=== PATIENT | female | born 1950 | race Caucasian/White ===

== ENCOUNTER 2024-03-26 19:50 | Inpatient (IN) | payer MEDICAID, SELFPAY ==
[2024-03-26] VITALS (16 sets, daily range): BP systolic 144–153; BP diastolic 73–81; PULSE 79–94; RESP 16–18; TEMP 37.6; O2SAT 91–97; BMI 21.5
--- NOTE | 2024-03-26 20:13 | ED.GENADULT ---
HPI - General Adult General Chief complaint: Post Op Complication Stated complaint: post op, left leg is swelling, can't walk Time Seen by Provider: 03/26/24 20:05 History of Present Illness HPI narrative: pt had spinal fusion february 09 at [facility]. states last 3d increased swelling in L leg, increased pain in groin with some numbness, L leg appears swollen, red and warmer to touch. tylenol and oxy for pain. 73-year-old woman presenting to the emergency department approximately 6 weeks status post lumbar fusion. She has been experiencing increased swelling in the entire left leg particularly now into her foot as well. She is having by inguinal discomfort. She has not had any fever. No cough or cold symptoms or shortness of breath. No chest pain noted. She does take oxycodone and acetaminophen once or twice a day yet for pain. There has been no recent trauma. She continues to wear her back brace. Was seen a week ago at [facility] with negative left lower extremity ultrasound. She is not reporting similar radicular pain to preop but there is some numbness now in the leg as well. Can not walk very well due to the pain. Related Data Home Medications ?Medication ?Instructions ?Recorded ?Confirmed No Known Home Medications 03/26/24 03/26/24 Allergies Allergy/AdvReac Type Severity Reaction Status Date / Time No Known Drug Allergies Allergy Verified 03/26/24 20:12 Review of Systems Status of ROS: Reports: 6 or more systems reviewed and unremarkable except as noted in History and below PFSH PFSH Social History What is your current living situation?: I presently have a place to live Problems where you live: no known problems Problems where you live details: n/a In the past 12 months, utilities in danger of being shut off: unable to answer In past 12 months, lack of transportation kept you from medical appts, meetings, work, or getting things needed for daily living: no In the past 12 mos, have been you worried that your food would run out before you had money to buy more?: never true In the past 12 mos, the food you bought just didn't last and you didn't have money to buy more?: never true Smoking Status: Never smoker How often do you have a drink containing alcohol: never AUDIT-C Alcohol total score: 0 Non-prescribed substance use: denies use How often does anyone, including family, friends and others, physically hurt you: unable to answer How often does anyone, including family, friends and others, insult or talk down to you: unable to answer How often does anyone, including family, friends and others, threaten you with harm: unable to answer How often does anyone, including family, friends and others, scream or curse at you: unable to answer Exam Narrative: Exam Narrative: Pleasant. NAD. Fully alert. Lying in bed semi recumbent. Breathing easily. Lungs appear to be clear. Heart in elevated rate and regular rhythm. Abdomen is soft nontender though I did not remove the thoracic brace to assess. Evaluating surgical sites I do not see any inflammatory changes/redness in the low back. Most notable is the left lower extremity with some petechial eruptions in the lower leg/foot. Is diffusely moderately tense and with pitting edema. I do not appreciate any discrete swelling in the inguinal areas. The skin of the leg itself is not indurated or with significant calor suggest an infectious etiology. Const: Vital Signs, click to edit/add: Vital Signs - 24 hr 03/26/24 20:06 03/26/24 20:45 03/26/24 21:00 Temperature 99.6 F Pulse Rate 93 85 Pulse Rate [Pulse Oximeter] 94 Respiratory Rate 18 Respiratory Rate [ Left Groin] Blood Pressure Blood Pressure [Ri ght Upper Arm] 153/81 H Pulse Oximetry 96 95 97 Oxygen Delivery Me thod Room Air 03/26/24 21:15 03/26/24 21:31 03/26/24 21:45 Temperature Pulse Rate 89 87 83 Pulse Rate [Pulse Oximeter] Respiratory Rate 16 Respiratory Rate [ Left Groin] Blood Pressure Blood Pressure [Ri ght Upper Arm] Pulse Oximetry 95 97 97 Oxygen Delivery Me thod 03/26/24 22:00 03/26/24 22:00 03/26/24 22:15 Temperature Pulse Rate 86 88 Pulse Rate [Pulse Oximeter] Respiratory Rate Respiratory Rate [ Left Groin] 16 Blood Pressure Blood Pressure [Ri ght Upper Arm] Pulse Oximetry 96 94 Oxygen Delivery Me thod 03/26/24 22:30 03/26/24 22:31 03/26/24 22:32 Temperature Pulse Rate 79 85 84 Pulse Rate [Pulse Oximeter] Respiratory Rate 16 Respiratory Rate [ Left Groin] Blood Pressure 144/73 H Blood Pressure [Ri ght Upper Arm] Pulse Oximetry 97 96 97 Oxygen Delivery Me thod 03/26/24 22:45 03/26/24 23:00 03/26/24 23:15 Temperature Pulse Rate 87 90 90 Pulse Rate [Pulse Oximeter] Respiratory Rate Respiratory Rate [ Left Groin] Blood Pressure Blood Pressure [Ri ght Upper Arm] Pulse Oximetry 93 94 91 Oxygen Delivery Me thod 03/26/24 23:30 03/26/24 23:45 03/27/24 00:00 Temperature Pulse Rate 90 92 90 Pulse Rate [Pulse Oximeter] Respiratory Rate Respiratory Rate [ Left Groin] Blood Pressure Blood Pressure [Ri ght Upper Arm] Pulse Oximetry 94 92 91 Oxygen Delivery Me thod 03/27/24 00:15 03/27/24 00:30 03/27/24 00:45 Temperature Pulse Rate 90 101 H 104 H Pulse Rate [Pulse Oximeter] Respiratory Rate Respiratory Rate [ Left Groin] Blood Pressure Blood Pressure [Ri ght Upper Arm] Pulse Oximetry 90 95 95 Oxygen Delivery Me thod 03/27/24 00:57 03/27/24 01:00 03/27/24 01:01 Temperature Pulse Rate 83 86 84 Pulse Rate [Pulse Oximeter] Respiratory Rate 16 Respiratory Rate [ Left Groin] Blood Pressure 123/59 L 139/56 L Blood Pressure [Ri ght Upper Arm] Pulse Oximetry 95 95 94 Oxygen Delivery Me thod 03/27/24 01:25 03/27/24 01:35 Temperature Pulse Rate Pulse Rate [Pulse Oximeter] Respiratory Rate 20 Respiratory Rate [ Left Groin] Blood Pressure Blood Pressure [Ri ght Upper Arm] Pulse Oximetry 98 93 Oxygen Delivery Me thod Room Air Documenting provider has reviewed patient's vital signs: yes Course Vital Signs Vital signs: Initial Vital Signs Temperature 99.6 F 03/26/24 20:06 Temperature Source Temporal Artery Scan 03/26/24 20:06 Pulse Rate 94 03/26/24 20:06 Respiratory Rate 18 03/26/24 20:06 Blood Pressure 153/81 H 03/26/24 20:06 Blood Pressure Mean 105 03/26/24 20:06 Blood Pressure Position Sitting 03/26/24 20:06 Pulse Oximetry 96 03/26/24 20:06 Oxygen Delivery Method Room Air 03/26/24 20:06 Vital Signs Temperature 99.6 F 03/26/24 20:06 Pulse Rate 94 03/26/24 20:06 Respiratory Rate 18 03/26/24 20:06 Blood Pressure 153/81 H 03/26/24 20:06 Pulse Oximetry 96 03/26/24 20:06 Oxygen Delivery Method Room Air 03/26/24 20:06 Temperature 99.6 F 03/26/24 20:06 Pulse Rate 84 03/27/24 01:01 Respiratory Rate 20 03/27/24 01:35 Blood Pressure 139/56 L 03/27/24 01:01 Pulse Oximetry 93 03/27/24 01:35 Oxygen Delivery Method Room Air 03/27/24 01:35 Medications Administered Medications: Generic Name Dose Route Start Last Admin Trade Name Freq PRN Reason Stop Dose Admin Heparin Sodium/Dextrose 25,000 unit in 500 mls @ 0 mls/hr 03/26/24 23:45 03/27/24 00:40 Heparin IV 900 unit/hr .Q0M ERNIE 18 mls/hr Administration Protocol Per Protocol Tramadol HCl 50 - 100 mg 03/27/24 02:24 03/27/24 06:37 Tramadol Hcl 50 Mg Tablet PO 100 mg Q6H PRN Administration Discontinued Medications Generic Name Dose Route Start Last Admin Trade Name Freq PRN Reason Stop Dose Admin Heparin Sodium (Porcine) 3,900 unit 03/26/24 23:58 03/27/24 00:40 Heparin 5,000 Unit/0.5 Ml Inj 80 unit/kg (3900 unit) 03/26/24 23:59 3,900 unit IVP Administration ONCE ONE Sodium Chloride 500 mls @ 500 mls/hr 03/26/24 20:26 03/27/24 00:42 0.9 % Sodium Chloride 500 Ml IV 03/26/24 21:25 Infused .Q1H ONE Infusion Morphine Sulfate 4 mg 03/26/24 20:26 03/26/24 21:00 Morphine 4 Mg/Ml Inj IVP 03/26/24 20:27 4 mg ONCE ONE Administration Medical Decision Making MDM Narrative Medical decision making narrative: Concerning a changes for thromboembolic event also. Perhaps this was just beyond the limits of the lower extremity ultrasound was done last week. May need to image lower abdomen/pelvis as well. I do not think this is infectious but will check labs in that regard. Check coags and hemoglobin. Was present for ultrasound of left lower extremity. Confirmed with senior cytotechnologist that has extensive clot burden throughout the left leg and inguinal area extending from the common femoral to the peroneals. Unable to visualize the iliacs due to obscuring gas I wonder if might need thrombectomy as opposed to lytics in the setting of recent spinal surgery. There is not imminent compromise to her limb however I am impressed at the degree of involvement. Have paged to neurosurgery at [facility] to discuss. Neurosurgery approves any treatment but lytics at this point. Have been attempting to reach vascular to discuss next steps. Spoke to [facility] ED doc pending vascular availability. Over-read of ultrasound as below Study:?US-Extremity Left LEV LT-03/26/2024 9:39:49 PM Ordering Physician:Sumanth Weems Final Report: Indication: Left leg swelling, redness and pain Technique: Venous duplex ultrasound of the left lower extremity utilizing compression with grayscale and color and spectral Doppler. Comparison: None Findings: Occlusive deep vein thrombosis in the left common femoral, deep femoral, superficial femoral and both peroneal veins. There is no deep vein thrombosis in the left popliteal or posterior tibial veins. No deep vein thrombosis in the contralateral right common femoral vein. No visualized superficial vein thrombosis. Minimal subcutaneous edema. Impression: Acute, occlusive deep vein thrombosis in the left common, deep, and superficial femoral veins and both peroneal veins. Able to reach general surgery and then I understand vascular surgery resident. Noted to be conversation with staff about this case. Recommending heparinization and hospitalization and then transitioning to other anticoagulation perhaps NOAC. I think it would also be beneficial to have further imaging try to characterize extent of this DVT. I discussed this case with our hospitalist for admission but I am also ordering CT imaging of the abdomen and pelvis. CT abdomen and pelvis acquired with 53 cc of Isovue 370 IV contrast. COMPARISON: None. FINDINGS: Lower chest: Unremarkable. Liver: Unremarkable. Normal in size and attenuation. No suspicious masses. Gallbladder and bile ducts: Unremarkable. No stones or inflammation. No biliary dilatation. Pancreas: Unremarkable. No mass or inflammation. Spleen: Unremarkable. Normal in size. No masses. Adrenal glands: Unremarkable. No nodules. Kidneys: Simple cyst with punctate mural calcification within the right kidney. No hydronephrosis, stone, or suspicious mass. GI tract: Diverticulosis without pericolonic inflammation. No obstruction. No evidence for appendicitis. Vasculature: Evaluation is somewhat limited due to streak artifact from the patient`s spinal fusion hardware. There is enlargement and decreased enhancement of the left superficial, common femoral, external iliac and distal common iliac veins. There does not appear to be thrombus within the IVC. Ectatic and mildly atherosclerotic thoracic aorta with patent mesenteric arteries. Lymph nodes: No lymphadenopathy. Peritoneum/Abdominal Wall: Enlargement of the proximal left thigh with surrounding inflammatory stranding/edema. No free air or significant free fluid. Pelvis: Unremarkable. Bones: Extensive lower thoracic, lumbar, and upper sacral posterior fusion changes. No acute bony abnormality. IMPRESSION: 1. Extensive left-sided deep venous thrombosis extending from the left superficial femoral vein to the left common iliac vein. Associated enlargement and edema of the left proximal thigh. No thrombus visualized within the IVC. 2. No other acute findings within the abdomen and pelvis. Medical Records Medical records reviewed: Yes I reviewed the patient's medical records Lab Data Lab results reviewed: Yes I reviewed the patient's lab results Labs: Lab Results 03/26/24 03/27/24 Range/Units 20:40 06:04 WBC 8.20 7.03 (4.50-11.00) K/uL RBC 3.90 L 3.53 L (4.00-5.20) m/uL Hgb 11.2 L 10.4 L (12.0-16.0) gm/dL Hct 35.9 32.1 L (33.0-51.0) % MCV 92 91 (80-100) fL MCH 29 30 (26-34) pg MCHC 31 L 32 (32-36) gm/dL RDW Coeff of Shalini 14.7 14.7 (11.5-15.5) % Plt Count 242 247 (140-440) K/uL Neut % (Auto) 67.9 55.5 (42.0-72.0) % Lymph % (Auto) 24.1 35.3 (20-44) % Douglas % (Auto) 6.6 7.0 (0.0-11.0) % Eos % (Auto) 1.2 1.8 (0.0-7.0) % Baso % (Auto) 0.2 0.4 (0.0-3.0) % Neut # (Auto) 5.56 3.90 (1.7-7.0) K/uL Lymph # (Auto) 1.98 2.48 (0.90-2.90) K/uL Douglas # (Auto) 0.50 0.50 (0.00-0.90) K/UL Eos # (Auto) 0.10 0.13 (0.00-0.50) K/uL Baso # (Auto) 0.02 0.03 (0.00-0.30) K/uL Abs Immat Gran (auto) 0.00 0.00 (0.00-0.30) K/uL Imm/Tot Granulo (auto) 0.0 0.0 % INR 0.92 (0.91-1.10) APTT 33 (23-33) Seconds D-Dimer Quant (PE/DVT) > 20.00 H (0.00-0.50) ug/ml Sodium 133 L 136 (135-149) mmol/L Potassium 4.3 3.9 (3.6-5.1) mmol/L Chloride 100 103 (96-114) mmol/L Carbon Dioxide 26 27 (20-32) mmol/L Anion Gap 7 6 L (7-15) mEq/L BUN 17 12 (7-30) mg/dL Creatinine 0.4 L 0.4 L (0.5-1.5) mg/dL Estimated Creat Clear 38.76 40.43 Estimated GFR 104 104 ml/min Glucose 127 H 103 (60-115) mg/dL Calcium 9.4 9.4 (8.4-10.6) mg/dL C-Reactive Protein 3.2 H (0.5-1.0) mg/dL Discharge Plan Discharge Clinical Impression: Postoperative acute deep vein thrombosis (DVT) of lower extremity Patient Disposition: Admitted As Observation Condition: Stable
--- NOTE | 2024-03-26 20:27 | CRLHL7_ITS ---
For Patients: As a result of the Century Cures Act, medical imaging exams and procedure reports are released immediately into your electronic medical record. You may view this report before your referring provider. If you have questions, please contact your health care provider. Indication: Left leg swelling, redness and pain Technique: Venous duplex ultrasound of the left lower extremity utilizing compression with grayscale and color and spectral Doppler. Comparison: None Findings: Occlusive deep vein thrombosis in the left common femoral, deep femoral, superficial femoral and both peroneal veins. There is no deep vein thrombosis in the left popliteal or posterior tibial veins. No deep vein thrombosis in the contralateral right common femoral vein. No visualized superficial vein thrombosis. Minimal subcutaneous edema. Impression: Acute, occlusive deep vein thrombosis in the left common, deep, and superficial femoral veins and both peroneal veins. Dictated by Marc Bazzi MD @ 03/26/2024 10:19:36 PM (Electronically Signed)
[2024-03-26 20:51] LABS: Basophils Absolute Auto 0.02 K/uL (0.00-0.30); Basophils Percent Auto 0.2 % (0.0-3.0); Eosinophils Percent Auto 1.2 % (0.0-7.0); Hematocrit 35.9 % (33.0-51.0); Hemoglobin* 11.2 gm/dL (12.0-16.0); Lymphocytes Absolute Auto 1.98 K/uL (0.90-2.90); Lymphocytes Percent Auto 24.1 % (20-44); Mean Corpuscular HGB Conc 31 gm/dL (32-36); Mean Corpuscular Hemoglobin 29 pg (26-34); Mean Corpuscular Volume 92 fL (80-100); Monocytes Percent Auto 6.6 % (0.0-11.0); Neutrophils Absolute Auto 5.56 K/uL (1.7-7.0); Neutrophils Percent Auto 67.9 % (42.0-72.0); Platelet Count* 242 K/uL (140-440); RDW Coefficient of Variation % 14.7 % (11.5-15.5)
[2024-03-26 20:55] LABS: Slide Review Reflex No
--- OUTSIDE RECORDS SUMMARY | 2024-03-26 20:59 | XMS_ITS | Encounter Summary ---
Author Organization [facility] Address [address] [place] [address] Phone Care Team Providers Care Machine Stripper Cutter Name Role Phone Marcela Vera MD Primary Care Provider [phone] Nolberto Campos PT Unavailable [phone] Nikki Delong PT Unavailable [phone] Reason for Visit * Reason Onset Date Comments Leg Problem 03/26/2024 Encounter Details Date Type Department Care Team (Late st Contact Info) Description 03/26/2024 Nurse Triage [facility] [address] [place] [address] Sarita Canales, RN [address] [place] [address] Leg Problem Social History Tobacco Use Types Packs/Day Years Used Date Smoking Tobacco: Never Smokeless Tobacco: Never Alcohol Use Standard Drinks/Week Comments Never 0 (1 standard drink = 0.6 oz pur e alcohol) Humiliation, Afraid, Rape, and Kick questionnair e Answer Date Recorded Within the last year, have y ou been afraid of your partner or ex-partner? No 02/17/2024 Within the last year, have y ou been humiliated or emotionally abused in other ways by your partner or ex-partner? No Within the last year, have y ou been kicked, hit, slapped, or otherwise physically hurt by your partner or ex-partner? No 02/17/2024 Within the last year, have y ou been raped or forced to have any kind of sexual activity by your partner or ex-partner? No 02/17/2024 Overall Financial Resource Strain (CARDIA) Answe r Date Recorded How hard is it for you to pa y for the very basics like food, housing, medical care, and heating? Not very hard 02/17/2024 PHQ-2 Answer Date Recorded PHQ-2 Subtotal 1 11/02/2023 Hunger Vital Sign Answer Date Recorded Within the past 12 months, y ou worried that your food would run out before you got the money to buy more. Never true 02/17/20 24 Within the past 12 months, t he food you bought just didn't last and you didn't have money to get more. Never true 02/17/2024 PRAPARE - Transportation Answer Date Re corded In the past 12 months, has l ack of transportation kept you from medical appointments or from getting medications? Yes 02/02 In the past 12 months, has l ack of transportation kept you from meetings, work, or from getting things needed for daily living? Yes 02/17/2024 Housing Stability Answer Date Recorded What is your housing situati on today? 1 - I do not have housing (I am staying with others, in a hotel, in a fpc, living outside on the street, on a beach, in a car, abandoned building, bus or train station, or in a park) 02/17/2024 Sex and Gender Information Value Date Recorded Sex Assigned at Female 11/05/2021 8:07 PM KILN CHARGER Gender Identity Female 11/05/2021 8:07 PM KILN CHARGER Sexual Orientation Straight 11/05/2021 8: 07 PM KILN CHARGER documented as of this encounter Miscellaneous Notes * Telephone Encounter - Sarita Canales RN - 03/26/2024 2:02 PM CDT D: Daughter Kaela trinidad, she is with the patient. States 2 days ago her left leg started swelling up again. It is now swollen from the foot to the hip. No redness, afebrile, denies chest pain or shortness of breath. The foot is darker than the right A: instructed to bring her to the closest ED R: The patient indicates understanding of these issues and agrees to the plan. P: Her daughter will bring her to the ED Call done with molding machine operator helper [id number] Reason for Disposition Entire foot is cool or blue in comparison to other side Answer Assessment - Initial Assessment Questions 1. ONSET: When did the swelling start? (e.g., minutes, hours, days) 2. LOCATION: What part of the leg is swollen? Are both legs swollen or just one leg? Left leg only 3. SEVERITY: How bad is the swelling? (e.g., localized; mild, moderate, severe) - Localized: Small area of swelling localized to one leg. - MILD pedal edema: Swelling limited to foot and ankle, pitting edema < 1/4 inch (6 mm) deep, rest and elevation eliminate most or all swelling. - MODERATE edema: Swelling of lower leg to knee, pitting edema > 1/4 inch (6 mm) deep, rest and elevation only partially reduce swelling. - SEVERE edema: Swelling extends above knee, facial or hand swelling present. Severe 4. REDNESS: Does the swelling look red or infected? Skin is tense 5. PAIN: Is the swelling painful to touch? If Yes, ask: How painful is it? (Scale 1-10; mild, moderate or severe) Upper part on the leg she has pain 6. FEVER: Do you have a fever? If Yes, ask: What is it, how was it measured, and when did it start? Denies 7. CAUSE: What do you think is causing the leg swelling? Unknown, she had recent surgery 8. MEDICAL HISTORY: Do you have a history of blood clots (e.g., DVT), cancer, heart failure, kidney disease, or liver failure? Denies 9. RECURRENT SYMPTOM: Have you had leg swelling before? If Yes, ask: When was the last time? What happened that time? 2 weeks ago, only in the feet 10. OTHER SYMPTOMS: Do you have any other symptoms? (e.g., chest pain, difficulty breathing) Denies 11. : Is there any chance you are ? When was your last menstrual period? N/a Protocols used: Leg Swelling and [id number] documented in this encounter Plan of Treatment Upcoming Encounters Date Type Department Care Team (Late st Contact Info) Description 03/28/2024 1:00 PM CDT [facility] [address] [place] [address] Navi Verduzco PA-C [address] [place] [phone] 1, [facility] [address] [place] [phone] Scheduled Discharge Disposition: Discharged to home or self care (routine discharge) 03/28/2024 2:00 PM CDT [facility] Program Engineer [address] [place] [address] Marina Vasquez, [facility] [address] [address], [facility] [address] [place] [address] Scheduled Discharge Disposition: Discharged to home or self care (routine discharge) 04/01/2024 11:30 AM CDT [facility]ointment [facility] [address] [place] [address] Chandler Zuniga, DO [address] [place] [address] Nikki Delong, PT [address] [place] [address] 1, [facility] [address] [place] [address] Scheduled Discharge Disposition: Discharged to home or self care (routine discharge) 04/05/2024 1:00 PM CDT [facility]ointment [facility] [address] [place] [address] Chandler Zuniga, DO [address] [place] [address] Nikki Delong, PT [address] [place] [address] 1, [facility] [address] [place] [address] Scheduled Discharge Disposition: Discharged to home or self care (routine discharge) 04/11/2024 11:00 AM CDT [facility]ointment [facility] [address] [address] Chandler Zuniga, DO [address] [address] Nikki Delong, PT [address] [place] [address] 1, [facility] [address] [place] [address] Scheduled Discharge Disposition: Discharged to home or self care (routine discharge) documented as of this encounter Visit Diagnoses Not on filedocumented in this encounter Additional Health Concerns Assessment Noted Time PHQ-9 Depression Total Score: 5 11/02/19 9:12 AM KILN CHARGER PHQ-2 Depression Total Score: 1 11/02/19 9:12 AM KILN CHARGER documented as of this encounter Care Teams Machine Stripper Cutter Relationship Specialty Start Date End Date Marcela Vera MD [address] [place] [address] [place] [phone] PCP - General Family Medicine 12/10/21 Nolberto Campos, PT [address] [place] [address] Physical Therapist Physical Therapy 12/11/21 Nikki Delong, PT [address] [place] [address] Physical Therapist Physical Therapy 03/08/24 documented as of this encounter
--- OUTSIDE RECORDS SUMMARY | 2024-03-26 20:59 | XMS_ITS | Clinical Summary ---
Author Organization [facility] Address [address] [place] [address] Phone Care Team Providers Care Personal Driver Name Role Phone Marcela Vera MD Primary Care Provider [phone] Nolberto Campos PT Unavailable [phone] Nikki Delong PT Unavailable [phone] Source Comments [employer] is fully rolled out on [facility]. Last update 03/09/09.[employer] Allergies No known active allergies Medications * Be aware that medications may not be up to date as of this document. Always verify current medications with patient. Medication Sig Dispensed Refills Start Date End Date Status acetaminophen (TYLENOL) 325 mg oral tabletIndicati ons:Pain Take 3 tablets (975 mg) by mouth 3 times daily as needed for Mild Pain. Indications: PainThis is over the counter. Obtain from your local pharmacy and follow the instructions on the bottle. Do not exceed 3000 mg per day 4 Active traZODone (DESYREL) 50 mg oral tabletIndicati ons:Insomnia Take one-half tablet (25 mg) by mouth at bedtime as needed for Sleep. 15 tablet 1 4 Active oxyCODONE (ROXICODONE) 5 mg oral tablet Take 1 tablet (5 mg) by mouth every 8 hours as needed for Pain. 21 tablet 4 024 Active multivitamin + minerals (CEROVITE SENIOR) oral Take 1 tablet by mouth daily. 30 tablet 1 4 Active oxyCODONE (ROXICODONE) 5 mg oral tabletIndicati ons:Acute Pain Take 1 tablet every 4 hours as needed for pain. DO NOT take more than the daily maximum amount. Stop taking the oxycodone sooner if able. ?? Day - Daily Maximum: Days 1-3: 2 tablets each day; Days 4-7: 1 tablet each day. 10 tablet 4 024 amLODIPine (NORVASC) 5 mg oral TABSIndication s:Hypertension Take 1 tablet (5 mg) by mouth daily. Indications: High Blood Pressure DisorderContinue to HOLD Unless PCP reintroduces medication for BP management. 30 tablet 1 4 024 Discontinued multivitamin + minerals (CEROVITE SENIOR) oral Take 1 tablet by mouth daily. 30 tablet 1 4 024 Discontinued(Re order) Active Problems Problem Noted Date Diagnosed Date Scoliosis of lumbar spine, unspecified scoliosis type 02/10/2024 Essential hypertension 12/09/2023 Cervical radiculopathy 07/07/2022 Scoliosis of lumbar spine 12/24/2021 Arthralgia of both hands 12/24/2021 Lumbar radiculopathy 12/24/2021 Cancer screening 09/11/2021 Overview: [facility] [place] [facility] . [facility]/HPV -n/a. Mammogram- ordered. Plan: Mammogram negative due 11/14/22 Copy of form sent to HIM to scan and Original sent to MD to process for billing. Ange Ibrahim MA, 09/11/2021 2:57 PM Encounters Date Type Department Care Team Description 03/26/[address] [facility] [address] [place] [address] Sarita Canales, RN Leg Problem 03/23/2024 9:30 AM CDT [facility] [address] [place] [address] Lucho Newsome PA-C 1, [place] S/P lumbar fusion (Primary Dx) Discharge Disposition: Discharged to home or self care (routine discharge) 03/23/2024 8:02 AM CDT - 03/23/2024 11:59 PM CDT Hospital [facility] [address] [place] [address] Lucho Newsome PA-C 1, [place] Discharge Disposition: Discharged to home or self care (routine discharge) 03/23/2024 Travel 03/17/2024 2:39 PM CDT - 03/17/2024 11:59 PM CDT Hospital Encounter [facility] [address] [place] [address] Brandie Burciaga, MEDICAL CLAIMS PROCESSOR, LEAF SUCKER OPERATOR 1, [place] Discharge Disposition: Discharged to home or self care (routine discharge) 03/17/2024 Telephone [facility] [address] [place] [address] Brandie Burciaga, MEDICAL CLAIMS PROCESSOR, LEAF SUCKER OPERATOR 03/16/2024 3:00 PM CDT Office Visit [facility] [address] [place] [address] Brandie Burciaga, MEDICAL CLAIMS PROCESSOR, LEAF SUCKER OPERATOR Faculty Administrator, Other-Offsite Edema of left lower leg (Primary Dx) Discharge Disposition: Discharged to home or self care (routine discharge) 03/16/2024 Travel 03/15/2024 12:35 PM CDT - 03/15/2024 11:59 PM CDT Hospital [facility] Physical Therapy [address] [place] [address] Chandler Zuniga, Nikki Rogers, PT 1, [place] Discharge Disposition: Discharged to home or self care (routine discharge) 03/15/[address] [facility] [address] [place] [phone] Dov Bennett, RN Leg Swelling 03/15/2024 Travel 02/26/2024 9:30 AM CDT - 02/26/2024 11:59 PM CDT Hospital Encounter [facility] [place] [address] Keyon Mcneil, VENDOR SPECIALIST 1, [place] Discharge Disposition: Discharged to home or self care (routine discharge) 02/24/2024 Documentation Only [facility] [address] [place] [address] Faculty Administrator, Services 02/23/2024 Documentation Only [facility] [address] [place] [address] Faculty Administrator, Services 02/18/2024 Travel 02/17/2024 1:34 PM CDT - 02/26/2024 4:30 PM CDT Hospital Encounter [facility] [address] [place] [address] Chandler Zuniga, DO Scoliosis of lumbar spine, unspecified scoliosis type Discharge Disposition: Discharged to home or self care (routine discharge) 02/13/2024 Orders Only Unspecified Department [place] Unknown, Provider 02/13/2024 Orders Only Unspecified Department [place] Unknown, Provider 02/12/2024 Orders Only Unspecified Department [place] Unknown, Provider 02/12/2024 Orders Only Unspecified Department [place] Unknown, Provider 02/12/2024 Orders Only Unspecified Department [place] Unknown, Provider 02/11/2024 Orders Only Unspecified Department [place] Unknown, Provider 02/11/2024 Orders Only Unspecified Department [place] Unknown, Provider 02/11/2024 Documentation Only [facility] Faculty Administrator Services [facility] [address] [place] [address] Faculty Administrator, Services 02/11/2024 Orders Only Unspecified Department [place] Unknown, Provider 02/10/2024 7:35 AM CDT Anesthesia Event OR [facility] [address] [place] [address] Laron Brown MD Jensen, Elizabeth Jones MD 02/10/2024 7:30 AM CDT - 02/10/2024 3:04 PM CDT Surgery OR [facility] [address] [place] [address] Tushar Antoine MD SPINAL FUSION POST LUMBAR/THORACIC [id number] T11-S2/iliac crest fusion with posterior lumbar interbody fusion and cell saver 02/10/2024 5:35 AM CDT - 02/17/2024 1:10 PM CDT Hospital Encounter [facility] Surgery/Trauma/Neur o 1 [facility] [address] [place] [address] Tushar Antoine MD Scoliosis of lumbar spine, unspecified scoliosis type Discharge Disposition: Discharged/transd to another rehab facility incl rehab distinct part of a hospital 02/10/2024 Orders Only Unspecified Department [place] Unknown, Provider 02/10/2024 Travel 02/09/2024 Documentation Only [facility] Faculty Administrator Services [facility] [address] [place] [address] Faculty Administrator, Services 02/08/2024 Documentation Only [facility] [address] [place] [address] Susanna Cano 02/01/2024 3:00 PM CDT Nurse Only [facility] [address] [place] [address] Tushar Antoine MD 1, [place] Discharge Disposition: Discharged to home or self care (routine discharge) 02/01/2024 2:25 PM CDT Office Visit [facility] [address] [place] [address] Ross Shannon MD 1, [place] Essential hypertension (Primary Dx) Discharge Disposition: Discharged to home or self care (routine discharge) 02/01/2024 Travel from Last 3 Months Immunizations Name Administration Dates Next Due COVID-19 MRNA Vaccine (Pfizer/COMIRNATY) suspens ion 09/05/2021 Influenza Vaccine, High Dose, Quadrivalent 07/19 Pneumococcal Polysaccharide, 23 Valent Vaccine(Pneumovax 23) 09/11/2021 Tetanus Toxoid, Reduced Diph theroid Toxoid Acellular Pertussis 12/24/2021 Social History Tobacco Use Types Packs/Day Years Used Date Smoking Tobacco: Never Smokeless Tobacco: Never Tobacco Cessation:Counseling Given: Not Answered Alcohol Use Standard Drinks/Week Comments Never 0 [...] with others, in a hotel, in a longterm, living outside on the street, on a beach, in a car, abandoned building, bus or train station, or in a park) 02/17/2024 Sex and Gender Information Value Date Recorded Sex Assigned at Female 11/05/2021 8:07 PM MOBILE HOME SERVICER Gender Identity Female 11/05/2021 8:07 PM MOBILE HOME SERVICER Sexual Orientation Straight 11/05/2021 8: 07 PM MOBILE HOME SERVICER Last Filed Vital Signs Vital Sign Reading Time Taken Comments Blood Pressure 124/64 03/23/2024 8:57 AM CDT Pulse 75 03/23/2024 8:57 AM CDT Temperature 36.9 ??C (98.4 ??F) 03/16/2024 2:19 PM CD T Respiratory Rate 18 02/26/2024 3:28 PM CDT Oxygen Saturation 94% 02/26/2024 3:28 PM CDT Inhaled Oxygen Concentration - - Weight 51.7 kg (114 lb) 03/23/2024 8:55 AM CDT Height 127 cm (4' 2) 02/17/2024 1:30 PM CDT Body Mass Index 32.06 02/17/2024 1:30 PM CDT Plan of Treatment Upcoming Encounters Date Type Department Care Team (Late st Contact Info) Description 03/28/2024 1:00 PM CDT [facility] [address] [place] [address] Navi Verduzco PA-C [address] [place] [phone] 1, [place] [address] [place] [address] Scheduled Discharge Disposition: Discharged to home or self care (routine discharge) 03/28/2024 2:00 PM CDT [facility] Janitor And Cleaner [address] [place] [address] Marina Vasquez LICSW [address] [place] [phone] 1, [place] [address] [place] [address] Scheduled Discharge Disposition: Discharged to home or self care (routine discharge) 04/01/2024 11:30 AM CDT Appointment [facility] Physical Therapy [address] [place] [address] Chandler Zuniga, DO [address] [place] [address] Nikki Delong, PT [address] [place] [address] 1, [place] [address] [place] [address] Scheduled Discharge Disposition: Discharged to home or self care (routine discharge) 04/05/2024 1:00 PM CDT Appointment [facility] [address] [place] [address] Chandler Zuniga, DO [address] [place] [address] Nikki Delong, PT [address] [place] [address] 1, [place] [address] [place] [address] Scheduled Discharge Disposition: Discharged to home or self care (routine discharge) 04/11/2024 11:00 AM CDT Appointment [facility] [address] [place] [address] Chandler Zuniga, DO [address] [place] [address] Nikki Delong, PT [address] [place] [address] 1, [place] [address] [place] [address] Scheduled Discharge Disposition: Discharged to home or self care (routine discharge) Health Maintenance Due Date Last Done Comments CT Colonography 1950 Colonoscopy 1950 Dental Oral Exam 1950 Dental Prophylaxis 1950 Dental X-Ray: Bitewings 1950 FIT/Cologuard 1950 Sigmoidoscopy 1950 Periodontal Maintenance 1964 Osteoporosis Screening (Dexa Scan) 2015 Imm: Pneumonia greater than 65 years (2 of 2 - PCV) 09/11/2022 09/11/2021 PREVENTATIVE VISIT 09/11/2022 09/11/2021 COVID-19 Vaccine ( season) 2023 07/20/2022, 09/05/2021, 02/10/2021, Additional history exists HEALTH MAINTENANCE PROTOCOL 03/05/2024 06/0 10/2022, 09/11/2021, 09/11/2021 MEDICATION REFILL PROTOCOL 03/05/2024 03/05/2023, Colorectal Cancer Screening 04/03/2024 iFOB/FIT 04/03/2024 04/03/2023, 01/02/2022 Breast Cancer Screening 11/28/2025 11/28/2023, 11/14 Lipid Screening 12/17/2026 12/17/2021 TD/TDAP ADULTS 12/25/2031 12/24/2021 Hepatitis C Screening Completed 02/12/2022 INFLUENZA VACCINE Completed 07/19/2023, , 08/06/2021 HIB Aged Out No longer eligi ble based on patient's age to complete this topic Imm: HepB Aged Out No longer eligi ble based on patient's age to complete this topic RSV Infant Immunoglobulin Aged Out No longer eligible based on patient's age to complete this topic Medical Devices Implanted Type Area Retail District Manager Device Identifier Shelf Expiration Date Model / Serial / Lot Amanda Lopez [facility] [id number] Implanted:Qty : 1 on 02/10/2024 by Tushar Antoine MD at [facility] Blood [facility]. Unknown: Lower Back [employer] 01/04/2026 [id number] / / [id number] Mastergraft 36cm X 43cm [id number] Implanted:Qty : 1 on 02/10/2024 by Tushar Antoine MD at [facility] Blood [facility] Unknown: Lower Back [employer] [id number] / / [id number] Infuse Bmp Large Ii Kit [id number] Implanted:Qty : 1 on 02/10/2024 by Tushar Antoine MD at [facility] Bone Graft Unknown: Lumbar Spine Posterior [employer] 04/04/2025 [id number] / / [id number] Connector 5/6-6.0 Top Lat 70 Implanted:Qty : 2 on 02/10/2024 by Tushar Antoine MD at [facility] Connector Unknown: Lower Back [employer] SOFAMOR DANEK [id number] / / Jose Cruz Spinal 5.5 Straig Titanium Implanted:Qty : 2 on 02/10/2024 by Tushar Antoine MD at [facility] Jose Cruz Unknown: Lower Back [employer] SOFAMOR DANEK [id number] / / Screw 6.5 X 40mm Implanted:Qty : 1 on 02/10/2024 by Tushar Antoine MD at [facility] Screw/[place] Unknown: Lumbar Spine Posterior [employer] SOFAMOR DANEK 08/06/2028 [id number] / / [id number] Screw Spinal 5.5 X 35mm Good Implanted:Qty : 1 on 02/10/2024 by Tushar Antoine MD at [facility] Screw/[place] Unknown: Lumbar Spine Posterior [employer] SOFAMOR DANEK 04/27/2028 [id number] / / [id number] Crosslink 5.5 Small 10-42mm Implanted:Qty : 2 on 02/10/2024 by Tushar Antoine MD at [facility] Screw/[place] Unknown: Lower Back [employer] SO[employer]OR [employer]ANEK [id number] / / Screw [id number] 5/6 Good Mas 6.5x35 Implanted:Qty : 1 on 02/10/2024 by Tushar Antoine MD at [facility] Screw/[place] Unknown: Lumbar Spine Posterior [employer] SOFAMOR DANEK 11/13/2028 [id number] / / [id number] Screw [id number] 5/6 Good Mas 6.5x35 Implanted:Qty : 1 on 02/10/2024 by Tushar Antoine MD at [facility] Screw/[place] Unknown: Lumbar Spine Posterior [employer] SOFAMOR [employer]ANEK 05/06/2027 [id number] / / [id number] Screw [id number] 5/6 Good Mas 6.5x50 Implanted:Qty : 1 on 02/10/2024 by Tushar Antoine MD at [facility] Screw/[place] Unknown: Lumbar Spine Posterior [employer] SO[employer]OR [employer]ANEK 11/13/2028 [id number] / / [id number] Screw 6.5 X 45mm Implanted:Qty : 1 on 02/10/2024 by Tushar Antoine MD at [facility] Screw/[place] Unknown: Lumbar Spine Posterior [employer] SOFAMOR DANEK 07/17/2028 [id number] / / [id number] Screw Spinal 5.5 X 35mm Good Implanted:Qty : 1 on 02/10/2024 by Tushar Antoine MD at [facility] Screw/[place] Unknown: Lower Back [employer] SOFAMOR [employer]ANEK 10/27/2027 [id number] / / [id number] Screw 6.5 X 40mm Implanted:Qty : 1 on 02/10/2024 by Tushar Antoine MD at [facility] Screw/[place] Unknown: Lower Back [employer] SOFAMOR DANEK 08/06/2028 [id number] / / [id number] Screw [id number] 5/6 Good Mas 6.5x35 Implanted:Qty : 1 on 02/10/2024 by Tushar Antoine MD at [facility] Screw/[place] Unknown: Lower Back [employer] SOFAMOR [employer]ANEK 07/30/2028 [id number] / / [id number] Screw Spinal 5.5 X 35mm Good Implanted:Qty : 1 on 02/10/2024 by Tushar Antoine MD at [facility] Screw/[place] Unknown: Lower Back [employer] SOFAMOR [employer]ANEK 04/27/2028 [id number] / / [id number] Screw 5.5 X 40mm Implanted:Qty : 1 on 02/10/2024 by Tushar Antoine MD at [facility] Unknown: Lower Back [employer] SOF[employer]OR [employer]ANE[employer] 09/16/2028 [id number] / / [id number] Screw 5.5 X 40mm Implanted:Qty : 1 on 02/10/2024 by Tushar Antoine MD at [facility] Unknown: Lower Back [employer] SOF[employer]OR [employer]ANE[employer] 10/04/2028 [id number] / / [id number] Screw 5.5 X 40mm Implanted:Qty : 1 on 02/10/2024 by Tushar Antoine MD at [facility] Unknown: Lumbar Spine Posterior [employer] SOFAMOR DANEK 09/16/2028 [id number] / / [id number] Medtronic Sofamor Danek Implanted:Qty : 1 on 02/10/2024 by Tushar Antoine MD at [facility] Unknown: Lower Back [employer] 04/17/2031 [id number] / / 13PG 5.5 6.0mm Break Off Ti Set Screw Implanted:Qty : 16 on 02/10/2024 by Tushar Antoine MD at [facility] Unknown: Lower Back [employer] SOFAMOR DANEK [id number] / / Ballast Implanted:Qty : 2 on 02/10/2024 by Tushar Antoine MD at [facility] Unknown: Lower Back [employer] [id number] / / Procedures Procedure Name Priority Date/Time Associated Diagnosis Comments XR SPINE LUMBAR 2/3 VW UPRIGHT Routine 03/23/2024 8:14 AM CDT 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 ULT VENOUS LOWER EXT LEFT Routine 03/17/2024 3:07 PM CDT Edema of left lower leg PC LAB HEME D-DIMEN QUANT Routine 03/16/2024 7:39 PM CDT Edema of left lower leg SODIUM Routine 02/25/2024 5:22 AM CDT PANEL BASIC METABOLIC (BMP) Routine 02/23/2024 5:24 AM CDT PC OSMOLALITY; URINE Routine 02/22/2024 8:08 PM CDT PC SODIUM; URINE Routine 02/22/2024 8:08 PM CDT PANEL BASIC METABOLIC (BMP) Routine 02/22/2024 7:09 AM CDT PC LAB CBC/PLT Routine 02/22/2024 7:09 AM CDT PANEL BASIC METABOLIC (BMP) Routine 02/19/2024 6:16 AM CDT TC LAB BLOOD DRAW BY VENIPUNCTURE Routine 02/19/2024 6:16 AM CDT POC GLUCOSE Routine 02/15/2024 11:21 AM CDT POC GLUCOSE Routine 02/15/2024 6:27 AM CDT TC LAB BLOOD DRAW BY VENIPUNCTURE Routine 02/15/2024 5:46 AM CDT XR SPINE THORACIC 2 VW UPRIGHT Routine 02/14/2024 9:57 PM CDT XR SPINE LUMBAR 2/3 VW UPRIGHT Routine 02/14/2024 9:54 PM CDT PC LAB CBC/PLT Routine 02/14/2024 5:50 AM CDT TELEMETRY STRIPS 02/13/2024 8:32 AM CDT EXTRA TUBE - LIGHT GREEN Routine 02/13/2024 6:48 AM CDT TC LAB BLOOD DRAW BY VENIPUNCTURE Routine 02/13/2024 6:17 AM CDT TELEMETRY STRIPS 02/13/2024 2:39 AM CDT TELEMETRY STRIPS 02/12/2024 8:46 PM CDT PC LAB CBC/PLT Timed 02/12/2024 8:27 AM CDT PANEL BASIC METABOLIC (BMP) Timed 02/12/2024 8:27 AM CDT TELEMETRY STRIPS 02/12/2024 8:13 AM CDT TELEMETRY STRIPS 02/12/2024 1:55 AM CDT HEMOGLOBIN STAT 02/11/2024 8:42 PM CDT TELEMETRY STRIPS 02/11/2024 6:01 PM CDT RED BLOOD CELLS LEUKOCYTE REDUCED ADULT (BLOOD ADMIN) Routine 02/11/2024 5:10 PM CDT TELEMETRY STRIPS 02/11/2024 10:54 AM CDT PANEL BASIC METABOLIC (BMP) Timed 02/11/2024 6:13 AM CDT PC LAB CBC/PLT Timed 02/11/2024 6:13 AM CDT TELEMETRY STRIPS 02/11/2024 1:26 AM CDT POC GLUCOSE Routine 02/10/2024 11:46 PM CDT TELEMETRY STRIPS 02/10/2024 10:25 PM CDT PANEL BASIC METABOLIC (BMP) Timed 02/10/2024 9:15 PM CDT PC LAB CBC/PLT Timed 02/10/2024 9:15 PM CDT POC GLUCOSE Routine 02/10/2024 6:47 PM CDT PROTHROMBIN (PT) & INR STAT 02/10/2024 6:20 PM CDT PC LAB CBC/PLT STAT 02/10/2024 6:20 PM CDT XR SPINE LUMBAR 1 VIEW STAT 02/10/2024 5:35 PM CDT XR SPINE LUMBAR 1 VIEW STAT 02/10/2024 5:35 PM CDT CRYOPRECIPITATE ADULT (BLOOD ADMIN) Routine 02/10/2024 4:56 PM CDT PLATELETS ADULT (BLOOD PRODUCT) (BLOOD ADMIN) Routine 02/10/2024 4:48 PM CDT FRESH FROZEN PLASMA ADULT (BLOOD ADMIN) Routine 02/10/2024 4:45 PM CDT POC CG8 ART Routine 02/10/2024 4:34 PM CDT POC HEMOGLOBIN(AUTOMATED) Routine 02/10/2024 4:33 PM CDT PROTHROMBIN (PT) & INR Routine 02/10/2024 4:13 PM CDT PC LAB PTT Routine 02/10/2024 4:13 PM CDT FIBRINOGEN Routine 02/10/2024 4:13 PM CDT PC LAB CBC/PLT Routine 02/10/2024 4:13 PM CDT RED BLOOD CELLS LEUKOCYTE REDUCED ADULT (BLOOD ADMIN) Routine 02/10/2024 4:00 PM CDT POC CG8 ART Routine 02/10/2024 3:19 PM CDT POC HEMOGLOBIN(AUTOMATED) Routine 02/10/2024 3:17 PM CDT RED BLOOD CELLS LEUKOCYTE REDUCED ADULT (BLOOD ADMIN) STAT 02/10/2024 2:00 PM CDT POC HEMOGLOBIN(AUTOMATED) Routine 02/10/2024 1:54 PM CDT POC HEMOGLOBIN(AUTOMATED) Routine 02/10/2024 12:49 PM CDT XR SPINE LUMBAR 2/3V AP/LAT/L5* Routine 02/10/2024 12:25 PM CDT XR O ARM 0-1 HR Routine 02/10/2024 12:25 PM CDT XR SPINE LUMBAR 2/3V AP/LAT/L5* Routine 02/10/2024 9:35 AM CDT XR O ARM 0-1 HR Routine 02/10/2024 9:35 AM CDT IV PLACEMENT Routine 02/10/2024 8:19 AM CDT INTUBATION Routine 02/10/2024 8:17 AM CDT SPINAL FUSION POST LUMBAR/THORACIC [id number] Semi-Urgent (< 2 wks) 02/10/2024 7:25 AM CDT Scoliosis of lumbar region due to degenerative disease of spine in adult Case Notes BMP APPROVED POC GLUCOSE Routine 02/10/2024 6:16 AM CDT PC ANTIBODY SCREEN,RBC,EACH SERUM TECHNIQUE Routine 02/10/2024 6:15 AM CDT TC LAB ABO TYPE GEL Routine 02/10/2024 6 :15 AM CDT PANEL BASIC METABOLIC (BMP) STAT 02/10/2024 6:15 AM CDT PC LAB CBC/PLT STAT 02/10/2024 6:15 AM CDT CLARISSE MAMMOGRAM SCRN LOCO DIGITAL Routine 11/28/2023 11:19 AM MOBILE HOME SERVICER Visit for screening mammogram PC BLOOD OCCULT FECAL HGB Routine 04/03/2023 8:00 AM CDT Colon cancer screening HEPATITIS C ANTIBODY Routine 02/12/2022 2:06 PM CDT Need for hepatitis C screening test PANEL LIPID Routine 12/17/2021 9:10 AM CDT Screening for hyperlipidemia from Last 3 Months or Most Recently Relevant to Health Maintenance Results * XR SPINE LUMBAR 2/3 VW UPRIGHT (03/23/2024 8:14 AM CDT) Only the most recent of2 resultswithin the time period is included. Anatomical Region Laterality Modality Lumbar Spine Digital Radiogra phy 03/23/2024 8:23 AM CDT Impressions 03/23/2024 8:26 AM CDT Impression: Stable postoperative alignment. Reading Radiologist: Chandler Holguin 03/23/2024 8:26 AM CDT Exam: Lumbar spine x-rays, 03/23/2024 Indication: Status post T11-S2 fusion. Comparison: X-rays from 02/14/2024. Findings: AP and lateral views of the lumbar spine with the patient upright. 5 lumbar-type vertebral bodies and partial lumbarization of S1. Similar convex- left curvature. Posterior fusion construct from T12 through the pelvis with bilateral trans-sacroiliac joint screws. No substantial change in alignment. No suspected hardware failure/complication. Nonobstructive bowel gas pattern. The lung bases appear clear. Procedure Note Chandler Holguin, DO - 03/23/2024 Exam: Lumbar spine x-rays, 03/23/2024 Indication: Status post T11-S2 fusion. Comparison: X-rays from 02/14/2024. Findings: AP and lateral views of the lumbar spine with the patientupright. 5 lumbar-type vertebral bodies and partial lumbarization of S1.Similar convex-left curvature. Posterior fusion construct from T12 throughthe pelvis with bilateral trans-sacroiliac joint screws. No substantialchange in alignment. No suspected hardware failure/complication.Nonobstructive bowel gas pattern. The lung bases appear clear. IMPRESSION Impression: Stable postoperative alignment. Reading Radiologist: Chandler Holguin Lucho Morin PA-C RAD XRAY * ULT VENOUS LOWER EXTREMITY LEFT (03/17/2024 3:07 PM CDT) Anatomical Region Laterality Modality Upper Leg Ultrasound 03/17/2024 2:59 PM CDT Impressions 03/17/2024 4:04 PM CDT Impression: No evidence of deep venous thrombosis in Left lower extremity. I have personally reviewed the image(s) and initial interpretation, and I agree with the findings as documented by the resident/fellow. Reading Radiologist: Mary Carmen Barbosa Reading Resident: Choco Lew Narrative 03/17/2024 4:04 PM CDT Indication: left leg pain and swelling ?? Comparison: None. Technique: ?? 1. ??Yip-scale imaging of the common femoral, femoral, profunda femoral origin, great saphenous and ??popliteal veins in both lower extremities including compressibility 2. ??Color Doppler of the above mentioned deep veins 3. ??Spectral waveform analysis of each of these veins Findings: The left common femoral vein, ??femoral ??vein, popliteal vein and great saphenous vein, profunda femoral origin, and left posterior tibial vein are fully compressible. They demonstrate normal Doppler flow, normal augmentation and normal color-flow. No thrombus is identified within them on grayscale imaging. The posterior tibial vein is patent. Procedure Note Mary Carmen Barbosa MD - 03/17/2024 Indication: left leg pain and swelling Comparison: None. Technique: 1. Yip-scale imaging of the common femoral, femoral, profunda femoralorigin, great saphenous and popliteal veins in both lower extremitiesincluding compressibility 2. Color Doppler of the above mentioned deep veins 3. Spectral waveform analysis of each of these veins Findings: The left common femoral vein, femoral vein, popliteal vein and greatsaphenous vein, profunda femoral origin, and left posterior tibial veinare fully compressible. They demonstrate normal Doppler flow, normalaugmentation and normal color-flow. No thrombus is identified within themon grayscale imaging. The posterior tibial vein is patent. IMPRESSION Impression: No evidence of deep venous thrombosis in Left lower extremity. I have personally reviewed the image(s) and initial interpretation, and Iagree with the findings as documented by the resident/fellow. Reading Radiologist: Mary Carmen Barbosa Reading Resident: Choco Lew Brandie Burciaga APRN, LEAF SUCKER OPERATOR RAD ULT * (ABNORMAL) D-DIMER QUANT (03/16/2024 7:39 PM CDT) D Dimer 11,499(H) <=500 ng/mL [facility] Comment:D-dimer values less than or equal to 500 ng/mL Fibrinogen Equivalent Units (FEU) may be used in conjunction with clinical pre-test probability to exclude deep vein thrombosis (DVT) and/or pulmonary embolism (PE). Blood 03/16/2024 7:39 PM CDT 03/16/2024 7:39 PM CDT Brandie Burciaga APRN, CNP LABORATORY Performing Organization Address [facility] Co de Phone Number [facility] [address] [address] * SODIUM (02/25/2024 5:22 AM CDT) Sodium 137 135 - 148 mmol/L [facility] Blood 02/25/2024 5:22 AM CDT 02/25/2024 6:53 AM CDT Chandler Zuniga DO LABORATORY Performing Organization Address [facility] de Phone Number [facility] [address] [address] * (ABNORMAL) PANEL BASIC METABOLIC (BMP) (02/23/2024 5:24 AM CDT) Only the most recent of7 resultswithin the time period is included. Sodium 134(L) 135 - 148 mmol/L [facility] Potassium 4.4 3.5 - 5.3 mmol/L [facility] Chloride 99 92 - 108 mmol/L [facility] CO2 29 22 - 30 mmol/L [facility] AnGap 6(L) 8 - 16 mmol/L [facility] Glucose 92 70 - 100 mg/dL [facility] BUN 17 8 - 23 mg/dL [facility] Creatinine 0.42(L) 0.50 - 1.00 mg/dL [facility] Calcium 8.6(L) 8.8 - 10.2 mg/dL [facility] eGFR (2020 CKD-EPI) 103 >=60 ml/min/1.7 3m2 [facility] Comment: The estimated glomerular filtration rate (eGFR) was calculated using the CKD-EPI 2020 creatinine equation, which does not include race as a factor. This equation is validated in individuals 18 years of age and older, and eGFR is normalized to a body surface area of 1.73m^2. Blood 02/23/2024 5:24 AM CDT 02/23/2024 6:01 AM CDT Chandler Zuniga DO LABORATORY Performing Organization Address [facility] de Phone Number [facility] [address] [address] * OSMOLALITY,URINE-RANDOM AMERICO (02/22/2024 8:08 PM CDT) Urine Osmo 354 50 - 800 mOsm/Kg [facility] Urine 02/22/2024 8:08 PM CDT 02/22/2024 9:31 PM CDT Chandler Zuniga DO LABORATORY Performing Organization Address [facility] de Phone Number [facility] [address] [address] * (ABNORMAL) SODIUM,URINE-RANDOM AMERICO (02/22/2024 8:08 PM CDT) Pathologist [facility] Sodium Urine <20(L) 40 - 200 mmol/L [facility] Urine 02/22/2024 8:08 PM CDT 02/22/2024 9:31 PM CDT Chandler Zuniga DO LABORATORY Performing Organization Address [facility] de Phone Number [facility] [address] [address] * (ABNORMAL) CBC WITH PLATELET (02/22/2024 7:09 AM CDT) Only the most recent of11 resultswithin the time period is included. WBC 7.67 4.00 - 10.00 k/cmm [facility] RBC 3.20(L) 3.90 - 5.20 m/cmm [facility] Hgb 9.4(L) 11.5 - 15.7 g/dL [facility] Hematocrit 30.0(L) 34.0 - 45.0 % [facility] MCV 93.8 80.0 - 100.0 fL [facility] MCH 29.4 25.0 - 32.0 pg [facility] MCHC 31.3 31.0 - 36.0 g/dL [facility] RDW 17.1(H) 11.5 - 14.5 % [facility] Plt 518(H) 150 - 400 k/cmm [facility] MPV 8.6 6.5 - 12.5 fL [facility] NRBC 0.4(H) 0.0 - 0.0 /100WBC [facility] Blood 02/22/2024 7:09 AM CDT 02/22/2024 8:15 AM CDT Chandler Zuniga DO LABORATORY [facility] [place] [address] * (ABNORMAL) POC GLUCOSE (02/15/2024 11:21 AM CDT) Only the most recent of5 resultswithin the time period is included. POC Glucose 124(H) 70 - 100 mg/dL [facility] Blood 02/15/2024 11:2 1 AM CDT Tushar Antoine MD LABORATORY Performing Organization Address City/[facility]/ZIP Co de Phone Number [facility] [address] [place] [address], * XR SPINE THORACIC 2 VW UPRIGHT (02/14/2024 9:57 PM CDT) Anatomical Region Laterality Modality Thoracic Spine Computed Radiogr aphy 02/14/2024 10:4 4 PM CDT Impressions 02/14/2024 10:47 PM CDT Impression: Stable thoracic mild dextro scoliosis. Extensive postsurgical changes of spinal fusion in the lumbar spine with improved scoliosis. Reading Radiologist: Arianna Rojo Narrative 02/14/2024 10:47 PM CDT Technique: XR SPINE THORACIC 2 VW UPRIGHT Indication: upright xrays after TLSO ?? Comparison: 08/24/2023 scoliosis series Findings: Stable extradural scoliosis of the upper to mid thoracic spine with significant improvement in the degree of levo curvature of the lumbar spine. Extensive postsurgical changes of decompressive laminectomy and posterior fusion is seen spanning the lumbar spine from T12 into the sacrum. The hardware appears intact. Lateral radiograph demonstrates the vertebral bodies to be normally aligned throughout the thoracic spine and visualized upper lumbar spine. Height of the vertebrae is normal. Small bilateral pleural effusions. Procedure Note Arianna Rojo MD - 02/14/2024 Technique: XR SPINE THORACIC 2 VW UPRIGHT Indication: upright xrays after TLSO Comparison: 08/24/2023 scoliosis series Findings: Stable extradural scoliosis of the upper to mid thoracic spinewith significant improvement in the degree of levo curvature of the lumbarspine. Extensive postsurgical changes of decompressive laminectomy andposterior fusion is seen spanning the lumbar spine from T12 into thesacrum. The hardware appears intact. Lateral radiograph demonstrates thevertebral bodies to be normally aligned throughout the thoracic spine andvisualized upper lumbar spine. Height of the vertebrae is normal. Smallbilateral pleural effusions. IMPRESSION Impression: Stable thoracic mild dextro scoliosis. Extensive postsurgical changes ofspinal fusion in the lumbar spine with improved scoliosis. Reading Radiologist: Arianna Rojo Tushar Antoine MD RAD XRAY * TELEMETRY STRIPS (02/13/2024 8:32 AM CDT) Only the most recent of9 resultswithin the time period is included. Narrative 02/13/2024 8:32 AM CDT Ordered by an unspecified provider. Provider Unknown RAD ECHO * EXTRA TUBE - LIGHT GREEN (02/13/2024 6:48 AM CDT) LIGHT GREEN TUBE Stored [facility] Comment:Green tubes ([place] Heparin) are stored in the lab for 3 days from the collection date. Blood 02/13/2024 6:48 AM CDT 02/13/2024 6:48 AM CDT Tushar Antoine MD LABORATORY [facility] [address] [address] * (ABNORMAL) HEMOGLOBIN (02/11/2024 8:42 PM CDT) Hgb 8.9(L) 11.5 - 15.7 g/dL [facility] Blood 02/11/2024 8:42 PM CDT 02/11/2024 8:48 PM CDT Narrative [facility] - 02/11/2024 8:55 PM CDT After transfusion Tushar Antoine MD LABORATORY Performing Organization Address [facility] Co de Phone Number [facility] [address] [address] * RED BLOOD CELLS LEUKOCYTE REDUCED ADULT (BLOOD ADMIN) (02/11/2024 5:10 PM CDT) Only the most recent of3 resultswithin the time period is included. [facility] [address] Unit Number [id number] [facility] Product Code [id number] [facility] Blood Expiration Date [id number] [facility] Blood Type 6200 [facility] Blood Type (TEXT) APOS [facility] Other 02/11/2024 5:10 PM CDT 02/11/2024 11:09 AM CDT Tushar Antoine MD BLOOD BANK DANNY LOVE (BLOOD ADMIN) Performing Organization Address [facility] Co de Phone Number [facility] [address] [address] * (ABNORMAL) PROTHROMBIN (PT) & INR (02/10/2024 6:20 PM CDT) Only the most recent of2 resultswithin the time period is included. Pathologist [facility] PT 16.9(H) 9.0 - 12.5 sec [facility] INR 1.5(H) 0.8 - 1.1 [facility] Comment: Warfarin Therapeutic Range: Standard Intensity: 2.0 - 3.0 High Intensity: 2.5 - 3.5 Blood 02/10/2024 6:20 PM CDT 02/10/2024 7:10 PM CDT Darlene Ray APRN, CRNA LABORATOR Y [facility] [address] [address] * XR SPINE LUMBAR 1 VIEW (02/10/2024 5:35 PM CDT) Only the most recent of2 resultswithin the time period is included. Anatomical Region Laterality Modality Lumbar Spine Computed Radiogr aphy 02/10/2024 6:54 PM CDT Impressions 02/10/2024 6:54 PM CDT Impression: Surgical marker in the posterior aspect of the L5-S1 disc. Reading Radiologist: Arianna Rojo Narrative 02/10/2024 6:54 PM CDT Technique: XR SPINE LUMBAR 1 VIEW Indication: spinal fusion ?? Comparison: 02/10/2024 at 1715 hours Findings: Stable extensive postsurgical changes of the lumbar spine. New surgical marker seen to project over the posterior third of the L5-S1 disc space. Retractors are seen in the lower lumbar spine. Procedure Note Arianna Rojo MD - 02/10/2024 Technique: XR SPINE LUMBAR 1 VIEW Indication: spinal fusion Comparison: 02/10/2024 at 1715 hours Findings: Stable extensive postsurgical changes of the lumbar spine. Newsurgical marker seen to project over the posterior third of the L5-S1 discspace. Retractors are seen in the lower lumbar spine. IMPRESSION Impression: Surgical marker in the posterior aspect of the L5-S1 disc. Reading Radiologist: Arianna Rojo Tushar Antoine MD RAD XRAY * CRYOPRECIPITATE ADULT (BLOOD ADMIN) (02/10/2024 4:56 PM CDT) Unit Number [id number] [facility] Product Code [id number] [facility] Blood Expiration Date [facility] Blood Type 6200 [facility] Blood Type (TEXT) APOS [facility] CRYO Ready Product Ready [facility] Other 02/10/2024 4:56 PM CDT 02/10/2024 4:47 PM CDT Narrative [facility] - 02/10/2024 4:56 PM CDT 1 unit is equivalent to a pool of 5 whole blood derived cryo. Is a signed informed consent on file: Yes-on file Reason for transfusion: FIBRINOGEN LESS THAN 100 MG/DL 1 Units Laron Brown MD BLOOD BANK ORDERABL ES (BLOOD ADMIN) Performing Organization Address [facility] Co de Phone Number [address] [address] * PLATELETS ADULT (BLOOD PRODUCT) (BLOOD ADMIN) (02/10/2024 4:48 PM CDT) Unit Number [id number] [facility] Product Code [id number] [facility] Blood Expiration Date [id number] [facility] Blood Type 6200 [facility] Blood Type (TEXT) APOS [facility] PLT Ready Product Ready [facility] Other 02/10/2024 4:48 PM CDT 02/10/2024 4:47 PM CDT Narrative [facility] - 02/10/2024 4:49 PM CDT One platelet pheresis dose is equivalent to 5-6 whole blood derived platelets. ?? If more than 1 dose needed, please contact Transfusion Service physician for approval. Is a signed informed consent on file: Yes-on file Reason for transfusion: OTHER (SPECIFY IN COMMENTS) less than 60 ongoing blood loss Does patient require irradiated product: No 1 Units Laron Brown MD BLOOD BANK ORDERABL ES (BLOOD ADMIN) Performing Organization Address [facility] Co de Phone Number [address] [address] * FRESH FROZEN PLASMA ADULT (BLOOD ADMIN) (02/10/2024 4:45 PM CDT) Unit Number [id number] [facility] Product Code [id number] [facility] Blood Expiration Date [id number] [facility] Blood Type 6200 [facility] Blood Type (TEXT) APOS [facility] Other 02/10/2024 4:45 PM CDT 02/10/2024 4:43 PM CDT Laron Brown MD BLOOD BANK ORDERABL ES (BLOOD ADMIN) Performing Organization Address City/[facility] Co de Phone Number [facility] [address] [place] [phone] * (ABNORMAL) POC CG8 ART (02/10/2024 4:34 PM CDT) Only the most recent of2 resultswithin the time period is included. Sodium 145 135 - 148 mEq/L [facility] Potassium 3.5 3.5 - 5.3 mEq/L [facility] Glucose 151(H) 70 - 100 mg/dL [facility] ICA, Measured 4.9 4.4 - 5.2 mg/dL [facility] PH Art 7.33(L) 7.35 - 7.45 [facility] PCO2 Art 35 35 - 45 mmHg [facility] PO2 Art 181(H) 75 - 85 mmHg [facility] TCO2 Art 19(L) 22 - 30 mEq/L [facility] Bicarb Art 18(L) 22 - 26 mEq/L [facility] Base Exc Art -8.0 -10.0 - 2.0 mEq/L [facility] O2 Sat Art 100(H) 96 - 99 % [facility] Blood 02/10/2024 4:34 PM CDT Tushar Antoine MD LABORATORY Performing Organization Address City/[facility]/ZIP Co de Phone Number [facility] [address] [place] [phone], * (ABNORMAL) POC HEMOGLOBIN(AUTOMATED) (02/10/2024 4:33 PM CDT) Only the most recent of4 resultswithin the time period is included. Hgb 8.9(L) 11.5 - 15.7 g/dL [facility] Blood 02/10/2024 4:33 PM CDT Tushar Antoine MD LABORATORY Performing Organization Address [facility] Co de Phone Number [facility] [address] [place] [address], * (ABNORMAL) FIBRINOGEN (02/10/2024 4:13 PM CDT) Fibrinogen 80(AA) 200 - 400 mg/dL [facility] Blood 02/10/2024 4:13 PM CDT 02/10/2024 4:13 PM CDT Narrative [facility] - 02/10/2024 4:39 PM CDT Critical value for fibrinogen called to and read back by Jarett Singh Nurse Regulatory Law Specialist in OR at 02/10/2024 16:39:30 CDT by Lani Esquivel MLS. Brant Santoro MD LABORATORY Performing Organization Address [facility] Co de Phone Number [address] [address] * (ABNORMAL) PTT (APTT) (02/10/2024 4:13 PM CDT) APTT 44.5(H) 25.0 - 37.0 sec [facility] Blood 02/10/2024 4:13 PM CDT 02/10/2024 4:13 PM CDT Brant Santoro MD LABORATORY Performing Organization Address [facility] Co de Phone Number [address] [address] * XR O ARM 0-1 HR (02/10/2024 12:25 PM CDT) Only the most recent of2 resultswithin the time period is included. Tushar Antoine MD RAD FLUORO * XR SPINE LUMBAR 2/3V AP/LAT/L5* (02/10/2024 12:25 PM CDT) Only the most recent of2 resultswithin the time period is included. Anatomical Region Laterality Modality Lumbar Spine Radio Fluoroscop y 02/10/2024 1:48 PM CDT Impressions 02/10/2024 3:00 PM CDT Impression: 1. Spot films and fluoroscopy time provided to the OR. 2. Computer-assisted surgical navigation was performed. I have personally reviewed the image(s) and initial interpretation, and I agree with the findings as documented by the resident/fellow. Reading Radiologist: Armando Drummond Reading Resident: Yanick Barron 02/10/2024 3:00 PM CDT Technique: XR SPINE LUMBAR 2/3V AP/LAT/L5* Indication:T11-S2 fusion. Comparison:AP and lateral views of the lumbar spine dated 12/24/2021. Fluoroscopy time:1.3 seconds Dose:0.87 mGy Multi-Plane Imaging CTDI: 52.35 x2 mGy DLP: 1674.49 (mGycm) Findings: Fluoroscopy time and spot-film imaging was provided to the OR. Spot images show postsurgical changes of posterior spinal fusion from T11-S2. No radiologist was present. Computer assisted surgical navigation was performed. Procedure Note Armando Drummond, - 02/10/2024 Technique: XR SPINE LUMBAR 2/3V AP/LAT/L5* Indication:T11-S2 fusion. Comparison:AP and lateral views of the lumbar spine dated 12/24/2021. Fluoroscopy time:1.3 seconds Dose:0.87 mGy Multi-Plane Imaging CTDI: 52.35 x2 mGy DLP: 1674.49 (mGycm) Findings: Fluoroscopy time and spot-film imaging was provided to the OR.Spot images show postsurgical changes of posterior spinal fusion [id number]. No radiologist was present. Computer assisted surgical navigation was performed. IMPRESSION Impression: 1. Spot films and fluoroscopy time provided to the OR. 2. Computer-assisted surgical navigation was performed. I have personally reviewed the image(s) and initial interpretation, and Iagree with the findings as documented by the resident/fellow. Reading Radiologist: Armando Drummond Reading Resident: Yanick Barron Tushar Antoine MD RAD XRAY * IV Placement (02/10/2024 8:19 AM CDT) Narrative Anaya Willis SRNA - 02/10/2024 8:19 AM CDT Anaya Willis SRNA ? 02/10/2024 ??8:20 AM IV Placement Procedure Notes: (Type: Surgical Anesthesia) ? IV Site: left, hand Needle size: 20 G gauge IV attempts: 1 Unsuccessful Attempts Location(s): left hand Difficult IV access: No Performed by: Other: ?? [id number] ANAYA WILLIS [id number] ?? Elizabeth Jensen MD PROCEDURES * Intubation/Airway (02/10/2024 8:17 AM CDT) Narrative Anaya Willis SRNA - 02/10/2024 8:17 AM CDT Anaya Willis SRNA ? 02/10/2024 ??8:19 AM AIRWAY/INTUBATION PROCEDURE GlideScope ??(Type: Surgical Anesthesia) Process/Method: sedated and paralyzed ?? Indications for procedure: surgery Assessment: C-spine unstable, TMD >3 finger breadths and vocal cords open and clear Preoxygenation: BVM Device Device used: Glidescope Supporting device: ?? Blade size: 3 The patient was intubated with a 7.0 mm standard endotracheal tube inflated to seal and secured at 18 cm to Lips Grade: I Narrative 1 intubation attempt(s) confirmed in 0-30 sec using BVM ventilation between attempts ?? Intubation Assessment: +ETCO2, EBBS and fog in ETT Ease of masking (I-easy to IV-difficult): I Ease of intubation (I-easy to IV-difficult): I Dentition Assessment: poor dentition and dentition unchanged Performed by: GUEST SERVICE MANAGER: Lobito Key APRN, GUEST SERVICE MANAGER Events Anesthesia start: 02/10/2024 7:35 AM Intubation time: 02/10/2024 7:47 AM Elizabeth Jensen MD PROCEDURES * ANTIBODY SCREEN (02/10/2024 6:15 AM CDT) Kary Screen Negative [facility] Blood 02/10/2024 6:15 AM CDT 02/10/2024 6:34 AM CDT Lucho Anthonyo PA-C LAB TRANSFUSI ON SERVICES Performing Organization Address [facility] Co de Phone Number [address] [address] * BLOOD TYPING-ABO/RH (02/10/2024 6:15 AM CDT) ABORHG A POS [facility] Blood 02/10/2024 6:15 AM CDT 02/10/2024 6:34 AM CDT Lucho Anthonyo PA-C LAB TRANSFUSI ON SERVICES Performing Organization Address [facility] de Phone Number [address] [address] * [facility] S[facility] BILAT DIGITAL (11/28/2023 11:19 AM MOBILE HOME SERVICER) Anatomical Region Laterality Modality Breast Bilateral Mammography Narrative 11/30/2023 10:09 AM MOBILE HOME SERVICER [facility] MAM[facility] S[facility]EN BILAT DIGITAL ??11/28/2023 1119 COMPARISONS: 11/14/2021. FINDINGS: The breast tissue demonstrates scattered fibroglandular densities. No mass, malignant appearing calcifications or secondary signs of carcinoma evident. No mammographic evidence of malignancy in the breasts. Recommend continued screening. This imaging procedure was performed using FFDM Marcela Vera MD RAD MAMMO * IFOB (FECAL OCCULT BLOOD IMMUNOASSAY) (04/03/2023 8:00 AM CDT) Fecal Occult Blood Immunoassay Negative Negative [facility] Feces 04/03/2023 8:00 AM CDT 04/03/2023 2:57 PM CDT Elena Zepeda MD LABORATORY Performing Organization Address City/[facility]/ZIP Co de Phone Number [facility] [address] [address] * HEPATITIS C ANTIBODY (02/12/2022 2:06 PM CDT) Hep C Kary Nonreactive Nonreactive [facility] Comment:Performance characte ristics have not been established with this test on patients less than 10 years of age. Blood 02/12/2022 2:06 PM CDT 02/12/2022 6:53 PM CDT Marcela Vera MD LABORATORY Performing Organization Address [facility] Co de Phone Number [facility] [address] [address] * (ABNORMAL) PANEL LIPID (12/17/2021 9:10 AM CDT) Cholesterol 236(H) <=200 mg/dL [facility] Comment: Interpretive Data <200 Desirable 200-239 Borderline high >=240 High HDL 65 >=50 mg/dL [facility] Comment: Interpretive Data Normal > 40 Male > 50 Female Triglyceride 123 <=150 mg/dL [facility] Comment: Interpretive Data <150 Normal 150-199 Borderline high 200-499 High >=500 Very high Calc LDL 146(H) <=100 mg/dL [facility] Comment: Interpretive Data <100 Desirable 100-129 Above desirable 130-159 Borderline high 160-189 High >=190 Very high Non-HDL Cholesterol Calculated 171(H) <=130 mg/dL [facility] Comment: Interpretive Data <130 Desirable 130-159 Above desirable 160-189 Borderline high 190-219 High >=220 Very high Blood 12/17/2021 9:10 AM CDT 12/17/2021 1:34 PM CDT Narrative [facility] - 12/17/2021 2:22 PM CDT Fasting: Yes Marcela Vera MD LABORATORY Performing Organization Address [facility] Co de Phone Number [facility] [address] [address] from Last 3 Months or Most Recently Relevant to Health Maintenance Advance Directives For more information, please contact: [phone] * Full Code (Latest Code Status on File) Date Activated Date Inactivated Comments 02/17/2024 2:41 PM 02/26/2024 7:30 PM Question Answer Comments Does the Patient have prefer ences regarding life sustaining measures (these options only apply when the patient has a pulse): No Discussed Code Status With Whom? Patient * Full Code Date Activated Date Inactivated Comments 02/10/2024 9:05 PM 02/17/2024 1:34 PM Question Answer Comments Does the Patient have prefer ences regarding life sustaining measures (these options only apply when the patient has a pulse): No Discussed Code Status With Whom? Not discussed Care Teams Personal Driver Relationship Specialty Start Date End Date Marcela Vera MD [address] [place] [address] [address] [place] [address] PCP - General Family Medicine 12/10/21 Nolberto Campos, PT [address] [place] [address] Physical Therapist Physical Therapy 12/11/21 Nikki Delong, PT [address] [place] [address] Physical Therapist Physical Therapy 03/08/24
--- OUTSIDE RECORDS SUMMARY | 2024-03-26 20:59 | XMS_ITS | Encounter Summary ---
Author Organization [facility] Address [address] [place] [address] Phone Care Team Providers [employer] Floorperson Name Role Phone Marcela Vera MD Primary Care Provider [phone] Nolberto Campos PT Unavailable [phone] Nikki Delong PT Unavailable [phone] Reason for Visit * Reason Comments Post Op Encounter Details Date Type Department Care Team (Late st Contact Info) Description 03/23/2024 9:30 AM CDT Office Visit [facility] [address] [place] [address] [id number] Lucho Newsome PA-C [address] [id number] [phone] [facility] [address] [place] [address] S/P lumbar fusion (Primary Dx) Discharge Disposition: Discharged to home or self care (routine discharge) Social History Tobacco Use Types Packs/Day Years [...] with others, in a hotel, in a nursing home, living outside on the street, on a beach, in a car, abandoned building, bus or train station, or in a park) 02/17/2024 Sex and Gender Information Value Date Recorded Sex Assigned at Female 11/05/2021 8:07 PM ENTERPRISE ARCHITECT Gender Identity Female 11/05/2021 8:07 PM ENTERPRISE ARCHITECT Sexual Orientation Straight 11/05/2021 8: 07 PM ENTERPRISE ARCHITECT documented as of this encounter Last Filed Vital Signs Vital Sign Reading Time Taken Comments Blood Pressure 124/64 03/23/2024 8:57 AM CDT Pulse 75 03/23/2024 8:57 AM CDT Temperature - - Respiratory Rate - - Oxygen Saturation - - Inhaled Oxygen Concentration - - Weight 51.7 kg (114 lb) 03/23/2024 8:55 AM CDT Height - - Body Mass Index 32.06 02/17/2024 1:30 PM CDT documented in this encounter Patient Instructions * Patient Instructions* Lucho Newsome PA-C - 03/23/2024 9:30 AM CDT -Continue with current activity and weight restriction of no lifting/pushing/pulling greater than 10 pounds. No twisting or bending. -Continue to wear TLSO brace when head of bed is greater than 30 degrees at all times. -Check skin daily, notify clinic with any new skin integrity issues. -No driving while wearing TLSO brace. -Avoid NSAIDs for 3 months postop. -Follow-up in 4 weeks with x-ray images prior. Please sisal picker the medications sent to your pharmacy for you today and take them as instructed. Please continue to monitor the swelling in your legs and let us know of any changes or symptoms discussed in clinic today. Lucho Newsome PA-C, 03/23/2024 9:30 AM documented in this encounter Progress Notes * Lucho Newsome PA-C - 03/23/2024 9:30 AM CDT [facility] Alondra Aguilar : 1950 Sex: female Medical Decision Making: Assessment: Alondra Aguilar is a 73 y.o. female here for a 6 week follow up status post [id number] posterior segmental fusion with deformity correction and left insertion L5-S1 PLIF. Patient is doing really well overall, she does complain of tingling to the left big toe however reports that that shooting pain down the left leg consistent with an L5 prior to her surgery has almost resolved. Patient only reporting occasional shooting pain down the left lower extremity. Patient has beendoing a lot of walking with a walker and is very compliant with TLSO brace. Pain is very controlledhowever she still reports back pain and indications pain is not very well-managed with Tylenol especially at night therefore will refill her oxycodone to take as needed. Incision looks well-healed with no concerns for infection or seroma/hematoma. Lumbar x-rays completed today were reviewed and with patient showing stable alignment of the thoracic and lumbar spine with no concerns for or loosening or failure.. Patient left lower extremity is swollen however there is still redness or pain, denies shortness ofbreath or chest pain. Educated patient to continue to monitor left lower extremity foot redness or symptoms concerning for DVT. ED precautions reviewed. Plan: -Continue with current activity and weight restriction of no lifting/pushing/pulling greater than 10 pounds. No twisting or bending. -Continue to wear TLSO brace when head of bed is greater than 30 degrees at all times. -Check skin daily, notify clinic with any new skin integrity issues. -No driving while wearing TLSO brace. -Avoid NSAIDs for 3 months postop. -Follow-up in 6 weeks with x-ray images prior. - Rx oxycodone q8h PRN - refilled multivitamin Discussed diagnosis and treatment plan with the patient. Patient verbalized understanding of condition and treatment plan. HPI: Alondra Aguilar is a 73 y.o. female status post [id number] posterior segmental fusion with deformity correction and left insertion L5-S1 PLIF on 02/10/[address] Antoine. Initially presented with left L5 radiculopathy. Imaging demonstrated levoscoliosis with extensive spondylosis, facet arthrosis, and spinal canal and neural foraminal stenosis. Patient discharged to [facility] on 02/16. Ellij[place] removed on 02/19. Today: Alondra Aguilar reports experiencing pain in the hip, back, and left leg. The pain is described as inflaming and fluctuates, with periods of inflammation lasting about 3 days followed by deflation for another 3 days. The intensity of the pain remains consistent during these episodes. The patient notes that the pain is less noticeable at night and has been managing it by keeping the leg elevated. Pre-op patient experienced pain that extended to the top of the foot, but this specific pain has since resolved. Currently, the patient only feels discomfort in the big toe, described as a cramping sensation with occasional paresthesia. The patient has been advised to monitor forredness and pain in the leg, especially when moving the foot, and to report any shortness of breathor chest pain. Pain management has included Tylenol and occasional Oxycodone for severe pain. Vitals: BP 124/64 Pulse 75 Wt 51.7 kg (114 lb) BMI 32.06 kg/m?? EXAM: Recent and remote memory intact Fund of knowledge within normal limit. speech fluent and appropriate. Cranial nerves grossly intact. Muscle bulk and tone within normal limit. Posture:wnl Gait: normal Motor: Finger Abduction: 5/5 right, 5/5 left Hip Flexion: 5/5 right, 5/5 left Knee Extension: 5/5 right, 5/5 left Ankle Dorsiflexion: 5/5 right, 5/5 left Ankle Planter Flexion: 5/5 right, 5/5 left Knee Flexion: 5/5 right, 5/5 left Ankle inversion/eversion: 5/5 right, 5/5 left Sensation: Equal and intact sensation to light touch in all extremities Reflexes: KJ: R 2+/L 2+ Ankle: R 2+/L 2+ Romberg: negative Holguin: present, absent Incision: clean/dry/Intact without redness, swelling, and drainage. Well healed. Spine: Normal alignment without bony deformity, no midline/paraspinal tenderness with palpation, however patient reports pain. Radiographic Image: XR Lumbar 03/23/24 Impression: Stable postoperative alignment. Imaging personally reviewed and with patient. I agree with radiologist interpretation. Lucho Morin PA-C documented in this encounter Plan of Treatment Upcoming Encounters Date Type Department Care Team (Late st Contact Info) Description 03/28/2024 1:00 PM CDT Office Visit [facility] [address] [place] [phone] Navi Verduzco PA-C [address] [place] [id number] 1, [facility] [address] [place] [address] Scheduled Discharge Disposition: Discharged to home or self care (routine discharge) 03/28/2024 2:00 PM CDT Office Visit [facility] Technology Professional [address] [place] [phone] Marina Vasquez, [facility] [address] [place] [phone] 1, [facility] [address] [place] [address] Scheduled Discharge Disposition: Discharged to home or self care (routine discharge) 04/01/2024 11:30 AM CDT Appointment [facility] Physical Therapy [address] [place] [id number] Chandler Zuniga, DO [address] [place] [address] Nikki Delong, PT [address] [place] [address] 1, [facility] [address] [place] [phone] Scheduled Discharge Disposition: Discharged to home or self care (routine discharge) 04/05/2024 1:00 PM CDT Appointment [facility] Physical Therapy [address] [place] [phone] Chandler Zuniga, DO [address] [place] [address] Nikki Delong, PT [address] [place] [address] 1, [facility] [address] [place] [address] Scheduled Discharge Disposition: Discharged to home or self care (routine discharge) 04/11/2024 11:00 AM CDT Appointment [facility] Physical Therapy [address] [place] [address] Chandler Zuniga, DO [address] [address] Nikki Delong, PT [address] [place] [address] 1, [facility] [address] [place] [address] Scheduled Discharge Disposition: Discharged to home or self care (routine discharge) Scheduled Orders Name Type Priority Associated Diagnoses Orde r Schedule XR SPINE LUMBAR 2/3 VW UPRIGHT Imaging Routine S/P lumbar fusion Expected: 03/23/2024, Expires: 05/23/2025 documented as of this encounter Visit Diagnoses Diagnosis S/P lumbar fusion- Primary Arthrodesis status documented in this encounter Additional Health Concerns Assessment Noted Time PHQ-9 Depression Total Score: 5 11/02/19 9:12 AM ENTERPRISE ARCHITECT PHQ-2 Depression Total Score: 1 11/02/19 9:12 AM ENTERPRISE ARCHITECT documented as of this encounter Care Teams [employer] Floorperson Relationship Specialty Start Date End Date Marcela Vera MD [address] [place] [address] [address] [place] [address] PCP - General Family Medicine 12/10/21 Nolberto Campos, PT [address] [place] [address] Physical Therapist Physical Therapy 12/11/21 Nikki Delong, PT [address] [place] [id number] Physical Therapist Physical Therapy 03/08/24 documented as of this encounter
--- OUTSIDE RECORDS SUMMARY | 2024-03-26 20:59 | XMS_ITS | Referral Summary ---
Author Organization [facility] Address [address] [place] [address] Phone Care Team Providers Care Trim Stencil Maker Name Role Phone Marcela Vera MD Primary Care Provider [phone] Nolberto Campos PT Unavailable [phone] Nikki Delong PT Unavailable [phone] Source Comments [employer] is fully rolled out [facility] [place] Last update 03/09/09.[facility] Encounters Date Type Department Care Team Description 03/26/2024 Nurse Triage [facility] [address] [place] [address] Sarita Canales RN Leg Problem 03/23/2024 Travel 03/23/2024 9:30 AM CDT Office [facility] [address] [address] Lucho Newsome PA-C 1, Isd-[place] S/P lumbar fusion (Primary Dx) Discharge Disposition: Discharged to home or self care (routine discharge) 03/23/2024 8:02 AM CDT - 03/23/2024 11:59 PM CDT Hospital Encounter [facility] [address] [address] Lucho Newsome PA-C 1, Isd-Canadian Discharge Disposition: Discharged to home or self care (routine discharge) 03/17/2024 Telephone [facility] [address] [place] [address] Brandie Burciaga, QUALITY CONTROL PROJECTIONIST, DIRECTOR OF COMPENSATION 03/17/2024 2:39 PM CDT - 03/17/2024 11:59 PM CDT Hospital Encounter [facility] [address] [place] [address] Brandie Burciaga, QUALITY CONTROL PROJECTIONIST, DIRECTOR OF COMPENSATION 1, Isd-Canadian Discharge Disposition: Discharged to home or self care (routine discharge) 03/16/2024 Travel 03/16/2024 3:00 PM CDT Office Visit [facility] [address] [place] [address] Brandie Burciaga, QUALITY CONTROL PROJECTIONIST, DIRECTOR OF COMPENSATION Distribution Center Supervisor, Other-Offsite Edema of left lower leg (Primary Dx) Discharge Disposition: Discharged to home or self care (routine discharge) 03/15/[address] [facility] [address] [place] [phone] Dov Bennett RN Leg Swelling 03/15/2024 Travel 03/15/2024 12:35 PM CDT - 03/15/2024 11:59 PM CDT Hospital Encounter [facility] [address] [place] [address] Chandler Zuniga, Nikki Rogers, PT 1, Isd-[place] Discharge Disposition: Discharged to home or self care (routine discharge) 02/26/2024 9:30 AM CDT - 02/26/2024 11:59 PM CDT Hospital Encounter [facility] [place] [place] [address] Keyon Mcneil, SCRAPPER 1, [place]d-Canadian Discharge Disposition: Discharged to home or self care (routine discharge) 02/17/2024 1:34 PM CDT - 02/26/2024 4:30 PM CDT [facility] [address] [place] [address] Chandler Zuniga DO Scoliosis of lumbar spine, unspecified scoliosis type Discharge Disposition: Discharged to home or self care (routine discharge) 02/24/2024 Documentation Only [facility] [place] [address] [place] [address] Distribution Center Supervisor, Services 02/23/2024 Documentation Only [facility] [place] [address] [place] [address] Distribution Center Supervisor, Services 02/18/2024 Travel 02/10/2024 5:35 AM CDT - 02/17/2024 1:10 PM CDT Hospital Encounter [facility] Surgery/Trauma/Neur o 1 [facility] [address] [place] [address] Tushar Antoine MD Scoliosis of lumbar spine, unspecified scoliosis type Discharge Disposition: Discharged/transd to another rehab facility incl rehab distinct part of a hospital 02/13/2024 Orders Only Unspecified Department [place] Unknown, Provider 02/13/2024 Orders Only Unspecified Department [place] Unknown, Provider 02/12/2024 Orders Only Unspecified Department [place] Unknown, Provider 02/12/2024 Orders Only Unspecified Department [place] Unknown, Provider 02/12/2024 Orders Only Unspecified Department [place] Unknown, Provider 02/11/2024 Orders Only Unspecified Department [place] Unknown, Provider 02/11/2024 Orders Only Unspecified Department [place] Unknown, Provider 02/11/2024 Documentation Only [facility] Distribution Center Supervisor Services [facility] [address] [place] [address] Distribution Center Supervisor, Services 02/11/2024 Orders Only Unspecified Department [place] Unknown, Provider 02/10/2024 Orders Only Unspecified Department [place] Unknown, Provider 02/10/2024 Travel 02/10/2024 7:30 AM CDT - 02/10/2024 3:04 PM CDT Surgery OR [facility] [address] [place], [place] [address] Tushar Antoine MD SPINAL FUSION POST LUMBAR/THORACIC W/[id number] T11-S2/iliac crest fusion with posterior lumbar interbody fusion and cell saver 02/10/2024 7:35 AM CDT Anesthesia Event OR [facility] [address] [place] [address] Laron Brown MD Jensen, Cristy Rose, MD 02/09/2024 Documentation Only [facility] Distribution Center Supervisor Services [facility] [address] [place] [address] Distribution Center Supervisor, Services 02/08/2024 Documentation Only [facility] [address] [place] [address] Susanna Cano 02/01/2024 Travel 02/01/2024 3:00 PM CDT Nurse Only [facility] [address] [place] [phone] Tushar Antoine MD 1, Isd-Canadian Discharge Disposition: Discharged to home or self care (routine discharge) 02/01/2024 2:25 PM CDT Office Visit [facility] [address] [place] [address] Ross Shannon MD 1, Isd-Canadian Essential hypertension (Primary Dx) Discharge Disposition: Discharged to home or self care (routine discharge) from Last 3 Months Allergies No known active allergies Medications * [...] 12/24/2021 Cancer screening 09/11/2021 Overview: 09/11/21 - [address] visit with Nakita @ [facility] . [facility]/HPV -n/a. Mammogram- ordered. Plan: Mammogram negative due 11/14/22 Copy of form sent to [facility] to scan and Original sent to [facility] to process for billing. Ange Ibrahim MA, 09/11/2021 2:57 PM Immunizations Name Administration Dates Next Due COVID-19 [...] with others, in a hotel, in a correction, living outside on the street, on a beach, in a car, abandoned building, bus or train station, or in a park) 02/17/2024 Sex and Gender Information Value Date Recorded Sex Assigned at Female 11/05/2021 8:07 PM TOOTH CUTTER CONTACT WHEEL Gender Identity Female 11/05/2021 8:07 PM TOOTH CUTTER CONTACT WHEEL Sexual Orientation Straight 11/05/2021 8: 07 PM TOOTH CUTTER CONTACT WHEEL Last Filed Vital Signs Vital Sign Reading [...] Specialty Center Physical Medicine [facility] Rehabilitation [facility] [address] [place] [address] Navi Verduzco PA-C [address] [place] [address] 1, Isd-Canadian [address] [place] [address] Scheduled Discharge Disposition: Discharged to home or self care (routine discharge) 03/28/2024 2:00 PM CDT Office Visit [facility] Hat Checker [address] [place] [address] Marina Vasquez LICSW [address] [place] [address] 1, Isd-Canadian [address] [place] [address] Scheduled Discharge Disposition: Discharged to home or self care (routine discharge) 04/01/2024 11:30 AM CDT Appointment [facility] [address] [place] [address] Chandler Zuniga, DO [address] [place] [address] Nikki Delong, PT [address] [place] [address] 1, Isd-Canadian [address] [place] [address] Scheduled Discharge Disposition: Discharged to home or self care (routine discharge) 04/05/2024 1:00 PM CDT Appointment [facility] [address] [place] [address] Chandler Zuniga, DO [address] [place] [address] Nikki Delong, PT [address] [place] [address] 1, Isd-Canadian [address] [place] [address] Scheduled Discharge Disposition: Discharged to home or self care (routine discharge) 04/11/2024 11:00 AM CDT Appointment [facility] [address] [place] [address] Chandler Zuniga, DO [address] [place] [address] Nikki Delong, PT [address] [place] [address] 1, Isd-Canadian [address] [place] [address] Scheduled Discharge Disposition: Discharged to home or self care (routine discharge) Medical Devices Implanted Type Area Contract Clerk Automobile Device Identifier Shelf Expiration Date Model / Serial / Lot Amanda Lopez [facility] [id number] Implanted:Qty : 1 on 02/10/2024 by Tushar Antoine MD at [facility] Blood [facility]. Unknown: Lower Back [employer] 01/04/2026 [id number] / / [id number] Mastergraft 36cm X 43cm [id number] Implanted:Qty : 1 on 02/10/2024 by Tushar Antoine MD at [facility]. Unknown: Lower Back [employer] [id number] / / [id number] Infuse Bmp Large Ii Kit [id number] Implanted:Qty : 1 on 02/10/2024 by Tushar Antoine MD at [facility] Bone Graft Unknown: Lumbar Spine Posterior [employer] 04/04/2025 [id number] / / [id number] Connector 5/6-6.0 Top Lat 70 Implanted:Qty : 2 on 02/10/2024 by Tushar Antoine MD at [facility] Connector Unknown: Lower Back [employer] SOFAMOR DANEK [id number] / / Jose Cruz Spinal 5.5 Straig Titanium Implanted:Qty : 2 on 02/10/2024 by Tushar Antoine MD at [facility] Jose Cruz Unknown: Lower Back [employer] SOFAMOR DANEK [id number] / / Screw 6.5 X 40mm Implanted:Qty : 1 on 02/10/2024 by Tushar Antoine MD at [facility] Screw/[place] Unknown: Lumbar Spine Posterior [employer] SOFAMOR DANEK 08/06/2028 [id number] / / [id number] Screw Spinal 5.5 X 35mm Good Implanted:Qty : 1 on 02/10/2024 by Tushar Antoine MD at [facility] Screw/[place] Unknown: Lumbar Spine Posterior [employer] SO[employer]AMOR DANEK 04/27/2028 [id number] / / [id number] Crosslink 5.5 Small 10-42mm Implanted:Qty : 2 on 02/10/2024 by Tushar Antoine MD at [facility] Screw/[place] Unknown: Lower Back [employer] SOFAMOR DANEK [id number] / / Screw [id number] 5/6 Good Mas 6.5x35 Implanted:Qty : 1 on 02/10/2024 by Tushar Antoine MD at [facility] Screw/[place] Unknown: Lumbar Spine Posterior [employer] SO[employer]OR DANEK 11/13/2028 [id number] / / [id number] Screw [id number] 5/6 Good Mas 6.5x35 Implanted:Qty : 1 on 02/10/2024 by Tushar Antoine MD at [facility] Screw/[place] Unknown: Lumbar Spine Posterior [employer] SOF[employer]OR [employer]ANEK 05/06/2027 [id number] / / [id number] Screw [id number] 5/6 Good Mas 6.5x50 Implanted:Qty : 1 on 02/10/2024 by Tushar Antoine MD at [facility] Screw/[place] Unknown: Lumbar Spine Posterior [employer]ANE[employer] 11/13/2028 [id number] / / [id number] Screw 6.5 X 45mm Implanted:Qty : 1 on 02/10/2024 by Tushar Antoine MD at [facility] Screw/[place] Unknown: Lumbar Spine Posterior [employer] SO[employer]ANE[employer] 07/17/2028 [id number] / / [id number] Screw Spinal 5.5 X 35mm Good Implanted:Qty : 1 on 02/10/2024 by Tushar Antoine MD at [facility] Screw/[place] Unknown: Lower Back [employer] SOFAMOR DANEK 10/27/2027 [id number] / / [id number] Screw 6.5 X 40mm Implanted:Qty : 1 on 02/10/2024 by Tushar Antoine MD at [facility] Screw/[place] Unknown: Lower Back [employer] SOF[employer]OR [employer]ANEK 08/06/2028 [id number] / / [id number] Screw [id number] 5/6 Good Mas 6.5x35 Implanted:Qty : 1 on 02/10/2024 by Tushar Antoine MD at [facility] Screw/[place] Unknown: Lower Back [employer] SO[employer]OR [employer]ANEK 07/30/2028 [id number] / / [id number] Screw Spinal 5.5 X 35mm Good Implanted:Qty : 1 on 02/10/2024 by Tushar Antoine MD at [facility] Screw/[place] Unknown: Lower Back [employer] SO[employer]ANE[employer] 04/27/2028 [id number] / / [id number] Screw 5.5 X 40mm Implanted:Qty : 1 on 02/10/2024 by Tushar Antoine MD at [facility] Unknown: Lower Back [employer] 09/16/2028 [id number] / / [id number] Screw 5.5 X 40mm Implanted:Qty : 1 on 02/10/2024 by Tushar Antoine MD at [facility] Unknown: Lower Back [employer] 10/04/2028 [id number] / / [id number] Screw 5.5 X 40mm Implanted:Qty : 1 on 02/10/2024 by Tushar Antoine MD at [facility] Unknown: Lumbar Spine Posterior [employer] SOFAMOR DANEK 09/16/2028 [id number] / / [id number] Med[employer] Sofamor Danek Implanted:Qty : 1 on 02/10/2024 by Tushar Antoine MD at [facility] Unknown: Lower Back [employer] 04/17/2031 [id number] / / 13PG 5.5 6.0mm Break Off Ti Set Screw Implanted:Qty : 16 on 02/10/2024 by Tushar Antoine MD at [facility] Unknown: Lower Back [employer] SOFAMOR DANEK [id number] / / Ballast Implanted:Qty : 2 on 02/10/2024 by Tushar Antoine MD at [facility] Unknown: Lower Back [employer] [id number] / / Procedures Procedure Name Priority Date/Time [...] 8:17 AM CDT SPINAL FUSION POST LUMBAR/THORACIC W/[id number] Semi-Urgent (< 2 wks) 02/10/2024 7:25 AM [...] SCRN LOCO DIGITAL Routine 11/28/2023 11:19 AM TOOTH CUTTER CONTACT WHEEL Visit for screening mammogram PC BLOOD OCCULT [...] Mary Carmen Barbosa Reading Resident: Choco Lew 03/17/2024 4:04 PM CDT Indication: left leg [...] Reading Resident: Choco Lew Brandie Burciaga APRN, CNP RAD ULT * (ABNORMAL) D-DIMER QUANT (03/16/2024 7:39 PM CDT) Pathologist [facility] D Dimer 11,499(H) <=500 ng/mL FEU [facility] Comment:D-dimer values less than or equal to 500 ng/mL Fibrinogen Equivalent Units (FEU) may be used in conjunction with clinical pre-test probability to exclude deep vein thrombosis (DVT) and/or pulmonary embolism (PE). Blood 03/16/2024 7:39 PM CDT 03/16/2024 7:39 PM CDT Brandie Burciaga APRN, CNP LABORATORY Performing Organization Address City/[facility] Co de Phone Number [facility] [place] [phone] * SODIUM (02/25/2024 5:22 AM CDT) [facility] Sodium 137 135 - 148 mmol/L [facility] Blood 02/25/2024 5:22 AM CDT 02/25/2024 6:53 AM CDT Chandler Zuniga DO LABORATORY Performing Organization Address City/[facility]/ZIP Co de Phone Number [facility] [address] [address] * (ABNORMAL) PANEL BASIC METABOLIC (BMP) (02/23/2024 5:24 AM CDT) Only the most recent of7 resultswithin the time period is included. Pathologist [facility] Sodium 134(L) 135 - 148 mmol/L [facility] Potassium 4.4 3.5 - 5.3 mmol/L [facility] Chloride 99 92 - 108 mmol/L [facility] CO2 29 22 - 30 mmol/L [facility] AnGap 6(L) 8 - 16 mmol/L [facility] Glucose 92 70 - 100 mg/dL [facility] BUN 17 8 - 23 mg/dL [facility] Creatinine 0.42(L) 0.50 - 1.00 mg/dL [facility] Calcium 8.6(L) 8.8 - 10.2 mg/dL [facility] eGFR (2020 CKD-EPI) 103 >=60 ml/min/1.7 3m2 [facility] Comment: The estimated glomerular filtration rate (eGFR) was calculated using the CKD-EPI 2020 creatinine equation, which does not include race as a factor. This equation is validated in individuals 18 years of age and older, and eGFR is normalized to a body surface area of 1.73m^2. Blood 02/23/2024 5:24 AM CDT 02/23/2024 6:01 AM CDT Chandler Zuniga DO LABORATORY Performing Organization Address City/[facility]/ZIP Co de Phone Number [facility] [address] [address] * OSMOLALITY,URINE-RANDOM AMERICO (02/22/2024 8:08 PM CDT) Urine Osmo 354 50 - 800 mOsm/Kg [facility] Urine 02/22/2024 8:08 PM CDT 02/22/2024 9:31 PM CDT Chandler Zuniga DO LABORATORY Performing Organization Address [facility] Co de Phone Number [facility] [address] [address] * (ABNORMAL) SODIUM,URINE-RANDOM AMERICO (02/22/2024 8:08 PM CDT) Sodium Urine <20(L) 40 - 200 mmol/L [facility] Urine 02/22/2024 8:08 PM CDT 02/22/2024 9:31 PM CDT Chandler Zuniga DO LABORATORY Performing Organization Address [facility] Co de Phone Number [facility] [address] [address] * (ABNORMAL) CBC WITH PLATELET (02/22/2024 7:09 AM CDT) Only the most recent of11 resultswithin the time period is included. WBC 7.67 4.00 - 10.00 k/cmm [facility] RBC 3.20(L) 3.90 - 5.20 m/cmm [facility] Hgb 9.4(L) 11.5 - 15.7 g/dL [facility] Hematocrit 30.0(L) 34.0 - 45.0 % [facility] MCV 93.8 80.0 - 100.0 fL [facility] MCH 29.4 25.0 - 32.0 pg [facility] MCHC 31.3 31.0 - 36.0 g/dL [facility] RDW 17.1(H) 11.5 - 14.5 % [facility] Plt 518(H) 150 - 400 k/cmm [facility] MPV 8.6 6.5 - 12.5 fL [facility] NRBC 0.4(H) 0.0 - 0.0 /100WBC [facility] Blood 02/22/2024 7:09 AM CDT 02/22/2024 8:15 AM CDT Chandler Zuniga DO LABORATORY Performing Organization Address City/[facility]/ZIP Co de Phone Number [facility] [place] [address] * (ABNORMAL) POC GLUCOSE (02/15/2024 11:21 AM CDT) Only the most recent of5 resultswithin the time period is included. POC Glucose 124(H) 70 - 100 mg/dL [facility] Blood 02/15/2024 11:2 1 AM CDT Tushar Antoine MD LABORATORY Performing Organization Address City/[facility]/ZIP Co de Phone Number [facility] [address] [place] [address], * XR SPINE THORACIC 2 VW UPRIGHT [...] 6:48 AM CDT) LIGHT GREEN TUBE Stored [facility] Comment:Green tubes ([place] Heparin) are stored in the lab for 3 days from the collection date. Blood 02/13/2024 6:48 AM CDT 02/13/2024 6:48 AM CDT Tushar Antoine MD LABORATORY Performing Organization Address City/[facility]/ZIP Co de Phone Number [facility] [address] [address] * (ABNORMAL) HEMOGLOBIN (02/11/2024 8:42 PM CDT) Pathologist [facility] Hgb 8.9(L) 11.5 - 15.7 g/dL [facility] Blood 02/11/2024 8:42 PM CDT 02/11/2024 8:48 PM CDT Narrative [facility] - 02/11/2024 8:55 PM CDT After transfusion Tushar Antoine MD LABORATORY Performing Organization Address [facility] Co de Phone Number [facility] [address] [address] * RED BLOOD CELLS LEUKOCYTE REDUCED ADULT (BLOOD ADMIN) (02/11/2024 5:10 PM CDT) Only the most recent of3 resultswithin the time period is included. Unit Number [id number] [facility] Product Code [id number] [facility] Blood Expiration Date [id number] [facility] Blood Type 6200 [facility] Blood Type (TEXT) APOS [facility] Other 02/11/2024 5:10 PM CDT 02/11/2024 11:09 AM CDT Tushar Antoine MD BLOOD BANK DANNY LOVE (BLOOD ADMIN) Performing Organization Address City/[facility]/ZIP Co de Phone Number [facility] [address] [address] * (ABNORMAL) PROTHROMBIN (PT) & INR (02/10/2024 6:20 PM CDT) Only the most recent of2 resultswithin the time period is included. PT 16.9(H) 9.0 - 12.5 sec [facility] INR 1.5(H) 0.8 - 1.1 [facility] Comment: Warfarin Therapeutic Range: Standard Intensity: 2.0 - 3.0 High Intensity: 2.5 - 3.5 Blood 02/10/2024 6:20 PM CDT 02/10/2024 7:10 PM CDT Darlene Ray APRN, SUPPORTIVE EMPLOYMENT CASE MANAGER LABORATOR Y [facility] [address] [address] * XR SPINE LUMBAR 1 VIEW (02/10/2024 [...] ADMIN) (02/10/2024 4:56 PM CDT) Unit Number [id number] [facility] Product Code [id number] [facility] Blood Expiration Date [id number] [facility] Blood Type 6200 [facility] Blood Type (TEXT) APOS [facility] CRYO Ready Product Ready [facility] Other 02/10/2024 4:56 PM CDT 02/10/2024 4:47 PM CDT Narrative [facility] - 02/10/2024 4:56 PM CDT 1 unit is equivalent to a pool of 5 whole blood derived cryo. Is a signed informed consent on file: Yes-on file Reason for transfusion: FIBRINOGEN LESS THAN 100 MG/DL 1 Units Laron Brown MD BLOOD BANK ORDERABL ES (BLOOD ADMIN) Performing Organization Address [facility] Co de Phone Number [facility] [address] [address] * PLATELETS ADULT (BLOOD PRODUCT) (BLOOD ADMIN) (02/10/2024 4:48 PM CDT) Unit Number [id number] [facility] Product Code [id number] [facility] Blood Expiration Date [id number] [facility] Blood Type 6200 [facility] Blood Type (TEXT) APOS [facility] PLT Ready Product Ready [facility] Other 02/10/2024 4:48 PM CDT 02/10/2024 4:47 PM CDT Narrative [facility] - 02/10/2024 4:49 PM CDT One [...] ORDERABL ES (BLOOD ADMIN) Performing Organization Address City/[facility]/ZIP Co de Phone Number [address] [address] * FRESH FROZEN PLASMA ADULT (BLOOD ADMIN) (02/10/2024 4:45 PM CDT) Unit Number [id number] [facility] Product Code [id number] [facility] Blood Expiration Date [facility] Blood Type 6200 [facility] Blood Type (TEXT) APOS [facility] Other 02/10/2024 4:45 PM CDT 02/10/2024 4:43 PM CDT Laron Brown MD BLOOD BANK ORDERABL ES (BLOOD ADMIN) Performing Organization Address [facility] Co de Phone Number [address] [address] * (ABNORMAL) POC CG8 ART (02/10/2024 4:34 PM CDT) Only the most recent of2 resultswithin the time period is included. Sodium 145 135 - 148 mEq/L [facility] [place] [facility] Potassium 3.5 3.5 - 5.3 mEq/L [facility] Glucose 151(H) 70 - 100 mg/dL [facility] ICA, Measured 4.9 4.4 - 5.2 mg/dL [facility] PH Art 7.33(L) 7.35 - 7.45 [facility] [facility] - POINT OF CARE PCO2 Art 35 35 - 45 mmHg [facility] - POINT OF CARE PO2 Art 181(H) 75 - 85 mmHg [facility] - POINT OF CARE TCO2 Art 19(L) 22 - 30 mEq/L [facility] - POINT OF CARE Bicarb Art 18(L) 22 - 26 mEq/L [facility] - POINT OF CARE Base Exc Art -8.0 -10.0 - 2.0 mEq/L [facility] - POINT OF CARE O2 Sat Art 100(H) 96 - 99 % [facility] - POINT OF CARE Blood 02/10/2024 4:34 PM CDT Tushar Antoine MD LABORATORY Performing Organization Address [facility] Co de Phone Number [facility] POINT OF [address] [address], * (ABNORMAL) POC HEMOGLOBIN(AUTOMATED) (02/10/2024 4:33 PM CDT) Only the most recent of4 resultswithin the time period is included. Hgb 8.9(L) 11.5 - 15.7 g/dL [facility] POINT OF [facility] Blood 02/10/2024 4:33 PM CDT Tushar Antoine MD LABORATORY Performing Organization Address [facility] de Phone Number [address] [address], * (ABNORMAL) FIBRINOGEN (02/10/2024 4:13 PM CDT) Fibrinogen 80(AA) 200 - 400 mg/dL [facility] Blood 02/10/2024 4:13 PM CDT 02/10/2024 4:13 PM CDT Narrative [facility] - 02/10/2024 4:39 PM CDT Critical value for fibrinogen called to and read back by Jarett Singh Nurse Therapist Asst in OR at 02/10/2024 16:39:30 CDT by Lani Esquivel MLS. Brant Santoro MD LABORATORY Performing Organization Address City/[facility]/ZIP Co de Phone Number [facility] [address] [address] * (ABNORMAL) PTT (APTT) (02/10/2024 4:13 PM CDT) APTT 44.5(H) 25.0 - 37.0 sec [facility] Blood 02/10/2024 4:13 PM CDT 02/10/2024 4:13 PM CDT Brant Santoro MD LABORATORY [facility] [address] [place] [address] * XR O ARM 0-1 HR (02/10/2024 [...] surgical navigation was performed. Procedure Note Armando Drummond DO - 02/10/2024 Technique: XR SPINE LUMBAR 2/3V AP/LAT/L5* Indication:T11-S2 fusion. Comparison:AP and lateral views of the lumbar spine dated 12/24/2021. Fluoroscopy time:1.3 seconds Dose:0.87 mGy Multi-Plane Imaging CTDI: 52.35 x2 mGy DLP: 1674.49 (mGycm) Findings: Fluoroscopy time and spot-film imaging was provided to the OR.Spot images show postsurgical changes of posterior spinal fusion [id number]. No radiologist was present. Computer assisted surgical [...] * IV Placement (02/10/2024 8:19 AM CDT) Anaya Le SRNA - 02/10/2024 8:19 AM CDT Anaya Willis SRNA ? 02/10/2024 ??8:20 AM IV Placement Procedure Notes: (Type: Surgical Anesthesia) ? IV Site: left, hand Needle size: 20 G gauge IV attempts: 1 Unsuccessful Attempts Location(s): left hand Difficult IV access: No Performed by: Other: ?? [id number] ANAYA WILLIS [id number] ?? Elizabeth Jensen MD PROCEDURES * Intubation/Airway (02/10/2024 8:17 AM CDT) Anaya Le SRNA - 02/10/2024 8:17 AM CDT Anaya [...] poor dentition and dentition unchanged Performed by: SUPPORTIVE EMPLOYMENT CASE MANAGER: Lobito Key APRN, CHRISTINE Events Anesthesia start: 02/10/2024 7:35 AM Intubation time: 02/10/2024 7:47 AM Elizabeth Jensen MD PROCEDURES * ANTIBODY SCREEN (02/10/2024 6:15 AM CDT) Kary Screen Negative [facility] Blood 02/10/2024 6:15 AM CDT 02/10/2024 6:34 AM CDT Lucho Saldaña Morin PA-C LAB TRANSFUSI ON SERVICES Performing Organization Address City/[facility] Co de Phone Number [facility] [place] [address] * BLOOD TYPING-ABO/RH (02/10/2024 6:15 AM CDT) ABORHG A POS [facility] Blood 02/10/2024 6:15 AM CDT 02/10/2024 6:34 AM CDT Lucho Loyaoso PA-C LAB TRANSFUSI ON SERVICES Performing Organization Address [facility] [place] [address] * [facility] MAMMOGRAM SCREEN BILAT DIGITAL (11/28/2023 11:19 AM TOOTH CUTTER CONTACT WHEEL) Anatomical Region Laterality Modality Breast Bilateral Mammography Narrative 11/30/2023 10:09 AM TOOTH CUTTER CONTACT WHEEL [facility] MAMMOGRAM SCREEN BILAT DIGITAL ??11/28/2023 1119 COMPARISONS: 11/14/2021. FINDINGS: The breast tissue demonstrates scattered fibroglandular densities. No mass, malignant appearing calcifications or secondary signs of carcinoma evident. No mammographic evidence of malignancy in the breasts. Recommend continued screening. This imaging procedure was performed using FFDM Marcela Vera MD RAD MAMMO * IFOB (FECAL OCCULT BLOOD IMMUNOASSAY) (04/03/2023 8:00 AM CDT) Pathologist [facility] Fecal Occult Blood Immunoassay Negative Negative [facility] Feces 04/03/2023 8:00 AM CDT 04/03/2023 2:57 PM CDT Elena Zepeda MD LABORATORY [facility] [place] [phone] * HEPATITIS C ANTIBODY (02/12/2022 2:06 PM CDT) [facility] Hep C Kary Nonreactive Nonreactive [facility] Comment:Performance characte ristics have not been established with this test on patients less than 10 years of age. Blood 02/12/2022 2:06 PM CDT 02/12/2022 6:53 PM CDT Marcela Vera MD LABORATORY Performing Organization Address City/[facility] Co de Phone Number [facility] [place] [phone] * (ABNORMAL) PANEL LIPID (12/17/2021 9:10 AM CDT) Pathologist [facility] Cholesterol 236(H) <=200 mg/dL [facility] Comment: Interpretive Data <200 Desirable 200-239 Borderline high >=240 High HDL 65 >=50 mg/dL [facility] Comment: Interpretive Data Normal > 40 Male > 50 Female Triglyceride 123 <=150 mg/dL [facility] Comment: Interpretive Data <150 Normal 150-199 Borderline high 200-499 High >=500 Very high Calc LDL 146(H) <=100 mg/dL [facility] Comment: Interpretive Data <100 Desirable 100-129 Above desirable 130-159 Borderline high 160-189 High >=190 Very high Non-HDL Cholesterol Calculated 171(H) <=130 mg/dL [facility] Comment: Interpretive Data <130 Desirable 130-159 Above desirable 160-189 Borderline high 190-219 High >=220 Very high Blood 12/17/2021 9:10 AM CDT 12/17/2021 1:34 PM CDT Narrative [facility] - 12/17/2021 2:22 PM CDT Fasting: Yes Marcela Vera MD LABORATORY [facility] [address] [place] [address] from Last 3 Months or Most Recently Relevant to Health Maintenance Advance Directives For more information, please contact: [phone] * Full Code (Latest Code Status on [...] Status With Whom? Not discussed Care Teams Trim Stencil Maker Relationship Specialty Start Date End Date Marcela Vera MD [address] [address] [place] [address] PCP - General Family Medicine 12/10/21 Nolberto Campos, PT [address] [place] [address] Physical Therapist Physical Therapy 12/11/21 Nikki Delong, PT [address] [place] [address] Physical Therapist Physical Therapy 03/08/24
--- OUTSIDE RECORDS SUMMARY | 2024-03-26 20:59 | XMS_ITS | Encounter Summary ---
Author Organization [facility] Address [address] [place] [address] Phone Care Team Providers Care Hearth Feeder Name Role Phone Marcela Vera MD Primary Care Provider [phone] Nolberto Campos PT Unavailable [phone] Nikki Delong PT Unavailable [phone] Encounter Details Date Type Department Care Team (Late st Contact Info) Description 03/17/2024 Telephone [facility] [address] [facility] [address] [place] [address] Brandie Burciaga, LEAD SUSTAINABILITY SPECIALIST, HEARINGS REPORTER [address] [facility] [address] [place] [address] Social History Tobacco Use Types Packs/Day Years [...] with others, in a hotel, in a chcf, living outside on the street, on a beach, in a car, abandoned building, bus or train station, or in a park) 02/17/2024 Sex and Gender Information Value Date Recorded Sex Assigned at Female 11/05/2021 8:07 PM DESIGN CENTER CONSULTANT Gender Identity Female 11/05/2021 8:07 PM DESIGN CENTER CONSULTANT Sexual Orientation Straight 11/05/2021 8: 07 PM DESIGN CENTER CONSULTANT documented as of this encounter Miscellaneous Notes * Telephone Encounter - Kenya Boggs, [place] - 03/17/2024 11:00 AM CDT D: see below A: called pt using yarn dumper, relayed that she should be seen sooner. Pt states she has appt scheduled for but agrees to be seen sooner R/P: Warm hand off to radiology scheduling for sooner appointment, explained elevated d-dimer and provider request Kenya Boggs, RN, 03/17/2024 11:01 AM * Telephone Encounter - Kenya Boggs RN - 03/17/2024 11:00 AM CDT ----- Message from Brandie Burciaga sent at 03/17/2024 10:34 AM CDT ----- Regarding: elevated d-dimer Would you mind calling patient and help get her scheduled for ultrasound? And see how she is doing? I evaluated her yesterday for DVT and her D-dimer is elevated- Thank you Brandie documented in this encounter Plan of Treatment Upcoming Encounters Date Type Department Care Team (Late st Contact Info) Description 03/28/2024 1:00 PM CDT [facility] [address] [place] [address] Navi Verduzco PA-C [address] [place] [address] 1, Isd-Bermudian [address] [place] [address] Scheduled Discharge Disposition: Discharged to home or self care (routine discharge) 03/28/2024 2:00 PM CDT [facility] Slurry Mixer [address] [place] [address] Marina Vasquez, LEOBARDO [address] [place] [address] 1, Isd-Bermudian [address] [place] [address] Scheduled Discharge Disposition: Discharged to home or self care (routine discharge) 04/01/2024 11:30 AM CDT [facility]ment [facility] Physical Therapy [address] [place] [address] Chandler Zuniga, DO [address] [place] [address] Nikki Delong, PT [address] [place] [address] 1, Isd-Bermudian [address] [place] [address] Scheduled Discharge Disposition: Discharged to home or self care (routine discharge) 04/05/2024 1:00 PM CDT [facility] Physical Therapy [address] [place] [address] Chandler Zuniga, DO [address] [place] [address] Nikki Delong, PT [address] [place] [address] 1, Isd-Bermudian [address] [place] [address] Scheduled Discharge Disposition: Discharged to home or self care (routine discharge) 04/11/2024 11:00 AM CDT [facility] Physical Therapy [address] [place] [address] Chandler Zuniga, DO [address] [place] [address] Nikki Delong, PT [address] [place] [address] 1, Isd-Bermudian [address] [place] [address] Scheduled Discharge Disposition: Discharged to home or self care (routine discharge) documented as of this encounter Visit Diagnoses Not on filedocumented in this encounter Additional Health Concerns Assessment Noted Time PHQ-9 Depression Total Score: 5 11/02/19 9:12 AM DESIGN CENTER CONSULTANT PHQ-2 Depression Total Score: 1 11/02/19 9:12 AM DESIGN CENTER CONSULTANT documented as of this encounter Care Teams Hearth Feeder Relationship Specialty Start Date End Date Marcela Vera MD [address] [address] PCP - General Family Medicine 12/10/21 Nolberto Campos, PT [address] [place] [address] Physical Therapist Physical Therapy 12/11/21 Nikki Delong, PT [address] [place] [address] Physical Therapist Physical Therapy 03/08/24 documented as of this encounter
--- OUTSIDE RECORDS SUMMARY | 2024-03-26 20:59 | XMS_ITS | Encounter Summary ---
Author Organization [facility] Address [address] [place] [address] Phone Care Team Providers Care Credit And Loan Collections Supervisor Name Role Phone Marcela Vera MD Primary Care Provider [phone] Nolberto Campos PT Unavailable Nikki Delong PT Unavailable [phone] Encounter Details Date Type Department Care Team (Latest Contact Info) Description 03/23/2024 Travel Social History Tobacco Use Types Packs/Day Years [...] with others, in a hotel, in a senior living, living outside on the street, on a beach, in a car, abandoned building, bus or train station, or in a park) 02/17/2024 Sex and Gender Information Value Date Recorded Sex Assigned at Female 11/05/2021 8:07 PM TEACHER DRAMATICS Gender Identity Female 11/05/2021 8:07 PM TEACHER DRAMATICS Sexual Orientation Straight 11/05/2021 8: 07 PM TEACHER DRAMATICS documented as of this encounter Plan of Treatment Upcoming Encounters Date Type Department Care Team (Late st Contact Info) Description 03/28/2024 1:00 PM CDT [facility] [address] [place] [phone] Navi Verduzco PA-C [address] [address] 1, Isd-Moldovan [address] [place] [address] Scheduled Discharge Disposition: Discharged to home or self care (routine discharge) 03/28/2024 2:00 PM CDT Office [facility] Associate Theatre Professor [address] [place] [address] Marina Vasquez, [facility] [address] [place] [address] 1, Isd-Moldovan [address] [place] [address] Scheduled Discharge Disposition: Discharged to home or self care (routine discharge) 04/01/2024 11:30 AM CDT [facility] Physical Therapy [address] [place] [address] Chandler Zuniga, DO [address] [place] [address] Nikki Delong, PT [address] [place] [address] 1, Isd-Moldovan [address] [place] [address] Scheduled Discharge Disposition: Discharged to home or self care (routine discharge) 04/05/2024 1:00 PM CDT [facility] Physical Therapy [address] [place] [address] Chandler Zuniga, DO [address] [place] [address] Nikki Delong, PT [address] [place] [address] 1, Isd-Moldovan [address] [place] [address] Scheduled Discharge Disposition: Discharged to home or self care (routine discharge) 04/11/2024 11:00 AM CDT [facility] Physical Therapy [address] [place] [address] Chandler Zuniga, DO [address] [place] [address] Nikki Delong, PT [address] [place] [address] 1, Isd-Moldovan [address] [place] [address] Scheduled Discharge Disposition: Discharged to home or self care (routine discharge) documented as of this encounter Visit Diagnoses Not on filedocumented in this encounter Additional Health Concerns Assessment Noted Time PHQ-9 Depression Total Score: 5 11/02/19 9:12 AM TEACHER DRAMATICS PHQ-2 Depression Total Score: 1 11/02/19 9:12 AM TEACHER DRAMATICS documented as of this encounter Care Teams Credit And Loan Collections Supervisor Relationship Specialty Start Date End Date Marcela Vera MD [address] [place] [address] [address] [place] [address] PCP - General Family Medicine 12/10/21 Nolberto Campos, PT [address] [place] [address] Physical Therapist Physical Therapy 12/11/21 Nikki Delong, PT [address] [place] [address] Physical Therapist Physical Therapy 03/08/24 documented as of this encounter
--- OUTSIDE RECORDS SUMMARY | 2024-03-26 20:59 | XMS_ITS | Encounter Summary ---
Author Organization [facility] Address [address] [place] [address] Phone Care Team Providers Care Certified Caregiver Name Role Phone Marcela Vera MD Primary Care Provider [phone] Nolberto Campos PT Unavailable [phone] Nikki Delong PT Unavailable [phone] Encounter Details Date Type Department Care Team (Latest Contact Info) Description 03/23/2024 8:02 AM CDT - 03/23/2024 11:59 PM CDT Hospital Encounter [facility] [address] [phone] Lucho Newsome PA-C [address] [phone] Isd-Egyptian [address] [place] [address] Discharge Disposition: Discharged to home or self [...] with others, in a hotel, in a detention, living outside on the street, on a beach, in a car, abandoned building, bus or train station, or in a park) 02/17/2024 Sex and Gender Information Value Date Recorded Sex Assigned at Female 11/05/2021 8:07 PM DIRECTOR DAY CARE CENTER Gender Identity Female 11/05/2021 8:07 PM DIRECTOR DAY CARE CENTER Sexual Orientation Straight 11/05/2021 8: 07 PM DIRECTOR DAY CARE CENTER documented as of this encounter Medications at Time of Discharge Medication Sig Dispensed Refills Start Date End Date oxyCODONE (ROXICODONE) 5 mg oral tablet Take 1 tablet (5 mg) by mouth every 8 hours as needed for Pain. 21 tablet 03/23/2024 03/30/2024 multivitamin + minerals (CEROVITE SENIOR) oral Take 1 tablet by mouth daily. 30 tablet 1 03/23/2024 acetaminophen (TYLENOL) 325 mg oral tabletIndications:Cr n Take 3 tablets (975 mg) by mouth 3 times daily as needed for Mild Pain. Indications: PainThis is over the counter. Obtain from your local pharmacy and follow the instructions on the bottle. Do not exceed 3000 mg per day 02/25/2024 traZODone (DESYREL) 50 mg oral tabletIndications:Ins omnia Take one-half tablet (25 mg) by mouth at bedtime as needed for Sleep. 15 tablet 1 02/25/2024 documented as of this encounter Plan of Treatment Upcoming Encounters Date Type Department Care Team (Late st Contact Info) Description 03/28/2024 1:00 PM CDT Office [facility] [address] [place] [address] Navi Verduzco PA-C [address] [place] [address] 1, Isd-Egyptian [address] [place] [address] Scheduled Discharge Disposition: Discharged to home or self care (routine discharge) 03/28/2024 2:00 PM CDT [facility] Anode Rebuilder [address] [place] [address] Marina Vasquez, MOTION GRAPHICS DESIGNER [address] [place] [address] 1, Isd-Egyptian [address] [place] [address] Scheduled Discharge Disposition: Discharged to home or self care (routine discharge) 04/01/2024 11:30 AM CDT [facility]ment [facility] Physical Therapy [address] [place] [address] Chandler Zuniga DO [address] [place] [address] Nikki Delong, PT [address] [place] [address] 1, Isd-Egyptian [address] [place] [address] Scheduled Discharge Disposition: Discharged to home or self care (routine discharge) 04/05/2024 1:00 PM CDT [facility]ment [facility] Physical Therapy [address] [place] [address] Chandler Zuniga, DO [address] [place] [address] Nikki Delong, PT [address] [place] [address] 1, Isd-Egyptian [address] [place] [address] Scheduled Discharge Disposition: Discharged to home or self care (routine discharge) 04/11/2024 11:00 AM CDT [facility]ment [facility] Physical Therapy [address] [place] [address] Chandler Zuniga, DO [address] [place] [address] Nikki Delong, PT [address] [place] [address] 1, Isd-Egyptian [address] [place] [address] Scheduled Discharge Disposition: Discharged to home or self care (routine discharge) documented as of this encounter Procedures Procedure Name Priority Date/Time Associated Diagnosis Comments XR SPINE LUMBAR 2/3 VW UPRIGHT Routine 03/23/2024 8:14 AM CDT 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 of lumbar region due to degenerative disease of spine in adult documented in this encounter Additional Health Concerns Assessment Noted Time PHQ-9 Depression Total Score: 5 11/02/19 24 9:12 AM DIRECTOR DAY CARE CENTER PHQ-2 Depression Total Score: 1 11/02/19 24 9:12 AM DIRECTOR DAY CARE CENTER documented as of this encounter Care Teams Certified Caregiver Relationship Specialty Start Date End Date Marcela Vera MD [address] [place] [address] [address] [place] [address] PCP - General Family Medicine 12/10/21 Nolberto Campos PT [address] [place] [address] Physical Therapist Physical Therapy 12/11/21 Nikki Delong, PT [address] [place] [address] Physical Therapist Physical Therapy 03/08/24 documented as of this encounter
--- OUTSIDE RECORDS SUMMARY | 2024-03-26 20:59 | XMS_ITS | Encounter Summary ---
Author Organization [facility] Address [address] [place] [address] Phone Care Team Providers Care Maori Physiotherapist Name Role Phone Marcela Vera MD Primary Care Provider [phone]- [phone] Nolberto Campos PT Unavailable [phone] Nikki Delong PT Unavailable [phone] Encounter Details Date Type Department Care Team (Latest Contact Info) Description 03/16/2024 Travel Social History Tobacco Use Types Packs/Day [...] Sex Assigned at Female 11/05/2021 8:07 PM LIBRARY DIRECTOR Gender Identity Female 11/05/2021 8:07 PM LIBRARY DIRECTOR Sexual Orientation Straight 11/05/2021 8: 07 PM LIBRARY DIRECTOR documented as of this encounter Plan of Treatment Upcoming Encounters Date Type Department Care Team (Late st Contact Info) Description 03/28/2024 1:00 PM CDT [facility] [address] [place] [address] [phone] Navi Verduzco PA-C [address] [address] 1, Isd-Emirati [address] [place] [address] 523[address] Scheduled Discharge Disposition: Discharged to home or self care (routine discharge) 03/28/2024 2:00 PM CDT [facility] Time Study Observer [address] [place] [address] Marina Vasquez, [facility] [address] [place] [address] 1, Isd-Emirati [address] [place] [address] Scheduled Discharge Disposition: Discharged to home or self care (routine discharge) 04/01/2024 11:30 AM CDT [facility]ointment [facility] Physical Therapy [address] [place] [address] Chandler Zuniga, DO [address] [place] [address] 110[address] Nikki Delong, PT [address] [place] [address] 1, Isd-Emirati [address] [place] [address] Scheduled Discharge Disposition: Discharged to home or self care (routine discharge) 04/05/2024 1:00 PM CDT [facility]ment [facility] Physical Therapy [address] [place] [address] Chandler Zuniga, DO [address] [place] [address] Nikki Delong, PT [address] [place] [address] 67[address] 1, Isd-Emirati [address] [place] [address] 10[address] Scheduled Discharge Disposition: Discharged to home or self care (routine discharge) 04/11/2024 11:00 AM CDT [facility]ment [facility] Physical Therapy [address] [place] [address] Chandler Zuniga, DO [address] [place] [address] 360[address] Nikki Delong, PT [address] [place] [address] 1, Isd-Emirati [address] [place] [address] 57596 Scheduled Discharge Disposition: Discharged to home or self care (routine discharge) documented as of this encounter Visit Diagnoses Not on filedocumented in this encounter Additional Health Concerns Assessment Noted Time PHQ-9 Depression Total Score: 5 11/02/19 9:12 AM LIBRARY DIRECTOR PHQ-2 Depression Total Score: 1 11/02/19 9:12 AM LIBRARY DIRECTOR documented as of this encounter Care Teams Maori Physiotherapist Relationship Specialty Start Date End Date Marcela Vera MD [address] [place] [address] 644 [place] [address] PCP - General Family Medicine 12/10/21 Nolberto Campos, PT [address] [place] [address] Physical Therapist Physical Therapy 12/11/21 Nikki Delong, PT [address] [place] [address] Physical Therapist Physical Therapy 03/08/24 documented as of this encounter
--- OUTSIDE RECORDS SUMMARY | 2024-03-26 20:59 | XMS_ITS | Encounter Summary ---
Author Organization [facility] Address [address] [place] [address] Phone Care Team Providers Care Extension Work Instructor Name Role Phone Marcela Vera MD Primary Care Provider [phone]- [phone] Nolberto Campos PT Unavailable [phone] Nikki Delong PT Unavailable [phone] Encounter Details Date Type Department Care Team (Late st Contact Info) Description 03/17/2024 2:39 PM CDT - 03/17/2024 11:59 PM CDT Hospital Encounter [facility] Ultrasound [facility] [address] [place] [address] Brandie Burciaga, FINANCIAL AGENT, MOTOR AND CONTROLS TESTER [address] [facility] [address] [place], [place] 9[address]241 1, Isd-Sammarinese [address] [place] [address] Discharge Disposition: Discharged to home or self [...] with others, in a hotel, in a [place], living outside on the street, on a beach, in a car, abandoned building, bus or train station, or in a park) 02/17/2024 Sex and Gender Information Value Date Recorded Sex Assigned at Female 11/05/2021 8:07 PM PER DIEM PHYSICAL THERAPIST ASSISTANT Gender Identity Female 11/05/2021 8:07 PM PER DIEM PHYSICAL THERAPIST ASSISTANT Sexual Orientation Straight 11/05/2021 8: 07 PM PER DIEM PHYSICAL THERAPIST ASSISTANT documented as of this encounter Medications at Time of Discharge Medication Sig Dispensed Refills Start Date End Date acetaminophen (TYLENOL) 325 mg oral tabletIndications:Cr n [...] needed for Sleep. 15 tablet 1 02/25/2024 multivitamin + minerals (CEROVITE SENIOR) oral Take 1 tablet by mouth daily. 30 tablet 1 02/26/2024 03/23/2024 documented as of this encounter Plan of Treatment Upcoming Encounters Date Type Department Care Team (Late st Contact Info) Description 03/28/2024 1:00 PM CDT [facility] Physical [facility] Rehabilitation Clinic [address] [place] [address] Navi Verduzco PA-C [address] [place] [address] 1, Isd-Sammarinese [address] [place] [address] Scheduled Discharge Disposition: Discharged to home or self care (routine discharge) 03/28/2024 2:00 PM CDT [facility] Shoe Coverer [address] [place] [address] Marina Vasquez, CHILDRENS CLUB ATTENDANT [address] [place] [address] 1, Isd-Sammarinese [address] [place] [address] 267[address] Scheduled Discharge Disposition: Discharged to home or self care (routine discharge) 04/01/2024 11:30 AM CDT [facility]ointment [facility] Physical Therapy [address] [place] [address] Chandler Zuniga, [address] [place] [address] 359[address] Nikki Delong, PT [address] [place] [address] 1, Isd-Sammarinese [address] [place] [address] Scheduled Discharge Disposition: Discharged to home or self care (routine discharge) 04/05/2024 1:00 PM CDT [facility]ointment [facility] Physical Therapy [address] [place] [address] 075[address] Chandler Zuniga, DO [address] [place] [address] 16[address] Nikki Delong, PT [address] [place] [address] 1, Isd-Sammarinese [address] [place] [address] Scheduled Discharge Disposition: Discharged to home or self care (routine discharge) 04/11/2024 11:00 AM CDT [facility]ointment [facility] Physical Therapy [address] [place] [address] Chandler Zuniga, DO [address] [place] [address] 7[address] Nikki Delong, PT [address] [place] [address] 1, Isd-Sammarinese [address] [place] [address] Scheduled Discharge Disposition: Discharged to home or self care (routine discharge) documented as of this encounter Procedures Procedure Name Priority Date/Time Associated Diagnosis Comments ULT VENOUS LOWER EXT LEFT Routine 03/17/2024 3:07 PM CDT Edema of left lower leg documented in this encounter Results * ULT VENOUS LOWER EXTREMITY LEFT (03/17/2024 3:07 PM CDT) Anatomical Region Laterality Modality Upper Leg Ultrasound 03/17/2024 2:59 PM CDT Impressions 03/17/2024 4:04 PM CDT Impression: No evidence of deep venous thrombosis in Left lower extremity. I have personally reviewed the image(s) and initial interpretation, and I agree with the findings as documented by the resident/fellow. Reading Radiologist: Mary Carmen Barbosa Resident: Choco Lew 03/17/2024 4:04 PM CDT [...] Barbosa Reading Resident: Choco Lew Brandie Burciaga FINANCIAL AGENT, MOTOR AND CONTROLS TESTER RAD ULT documented in this encounter Visit Diagnoses Diagnosis Edema of left lower leg documented in this encounter Additional Health Concerns Assessment Noted Time PHQ-9 Depression Total Score: 5 11/02/19 9:12 AM PER DIEM PHYSICAL THERAPIST ASSISTANT PHQ-2 Depression Total Score: 1 11/02/19 9:12 AM PER DIEM PHYSICAL THERAPIST ASSISTANT documented as of this encounter Care Teams Extension Work Instructor Relationship Specialty Start Date End Date Marcela Vera MD [address] [place] [address] 644 [place] [address] PCP - General Family Medicine 12/10/21 Nolberto Campos, PT [address] [place] [address] Physical Therapist Physical Therapy 12/11/21 Nikki Delong, PT [address] [place], [place] [phone] Physical Therapist Physical Therapy 03/08/24 documented as of this encounter
[2024-03-26] MEDS: MORPHINE 4 MG/ML INJ IVP (21:00)
[2024-03-26] MEDS: 0.9 % SODIUM CHLORIDE 500 ML 500 ML IV (21:00)
--- OUTSIDE RECORDS SUMMARY | 2024-03-26 21:00 | XMS_ITS | Encounter Summary ---
Author Organization [facility] Address [address] [place] [address] Phone Care Team Providers Care Pin Puller Name Role Phone Marcela Vera MD Primary Care Provider [phone] Nolberto Campos PT Unavailable [phone] Encounter Details Date Type Department Care Team (Latest Contact Info) Description 02/18/2024 Travel Social History Tobacco Use Types Packs/Day [...] with others, in a hotel, in a residential, living outside on the street, on a beach, in a car, abandoned building, bus or train station, or in a park) 02/17/2024 Sex and Gender Information Value Date Recorded Sex Assigned at Female 11/05/2021 8:07 PM CUPBOARD BUILDER Gender Identity Female 11/05/2021 8:07 PM CUPBOARD BUILDER Sexual Orientation Straight 11/05/2021 8: 07 PM CUPBOARD BUILDER documented as of this encounter Plan of Treatment Upcoming Encounters Date Type Department Care Team (Late st Contact Info) Description 03/28/2024 1:00 PM CDT [facility] Physical Medicine & Rehabilitation Clinic [address] [place] [address] [phone] Navi Verduzco PA-C [address] [place] [address] [phone] 1, Isd-Bolivian [address] [place] [address] Scheduled Discharge Disposition: Discharged to home or self care (routine discharge) 03/28/2024 2:00 PM CDT [facility] Federal Agent [address] [place] [address] Marina Vasquez, BRAKE LINING DRILLER [address] [place] [address] 1, Isd-Bolivian [address] [place] [address] Scheduled Discharge Disposition: Discharged to home or self care (routine discharge) 04/01/2024 11:30 AM CDT [facility]ointment [facility] Physical Therapy [address] [place] [address] Chandler Zuniga, DO [address] [place] [address] Nikki Delong, PT [address] [place] [address] 1, Isd-Bolivian [address] [place] [address] 14[address] Scheduled Discharge Disposition: Discharged to home or self care (routine discharge) 04/05/2024 1:00 PM CDT [facility]ointment [facility] Physical Therapy [address] [place] [address] Chandler Zuniga, DO [address] [place] [address] 475[address] Nikki Delong, PT [address] [place] [address] 1, Isd-Bolivian [address] [place] [address] 85[address] Scheduled Discharge Disposition: Discharged to home or self care (routine discharge) 04/11/2024 11:00 AM CDT [facility]ointment [facility] Physical Therapy [address] [place] [address] Chandler Zuniga, DO [address] [place] [address] 03[address] Nikki Delong, PT [address] [place] [address] 1, Isd-Bolivian [address] [place] [address] 36[address] Scheduled Discharge Disposition: Discharged to home or self care (routine discharge) documented as of this encounter Visit Diagnoses Not on filedocumented in this encounter Additional Health Concerns Assessment Noted Time PHQ-9 Depression Total Score: 5 11/02/19 24 9:12 AM CUPBOARD BUILDER PHQ-2 Depression Total Score: 1 11/02/19 24 9:12 AM CUPBOARD BUILDER documented as of this encounter Care Teams Pin Puller Relationship Specialty Start Date End Date Marcela Vera MD [address] [facility] [address] [place] [address] PCP - General Family Medicine 12/10/21 Nolberto Campos, PT [address] [place] [address] Physical Therapist Physical Therapy 12/11/21 documented as of this encounter
--- OUTSIDE RECORDS SUMMARY | 2024-03-26 21:00 | XMS_ITS | Encounter Summary ---
Author Organization [facility] Address [address] [place] [address] Phone Care Team Providers Care Picker/Puller Name Role Phone Marcela Vera MD Primary Care Provider [phone] Nolberto Campos PT Unavailable [phone] Nikki Delong PT Unavailable [phone] Encounter Details Date Type Department Care Team (Latest Contact Info) Description 03/15/2024 Travel Social History Tobacco Use Types Packs/Day [...] with others, in a hotel, in a long-term, living outside on the street, on a beach, in a car, abandoned building, bus or train station, or in a park) 02/17/2024 Sex and Gender Information Value Date Recorded Sex Assigned at Female 11/05/2021 8:07 PM ASSISTED SALES REPRESENTATIVE Gender Identity Female 11/05/2021 8:07 PM ASSISTED SALES REPRESENTATIVE Sexual Orientation Straight 11/05/2021 8: 07 PM ASSISTED SALES REPRESENTATIVE documented as of this encounter Plan of Treatment Upcoming Encounters Date Type Department Care Team (Late st Contact Info) Description 03/28/2024 1:00 PM CDT [facility] Visit [facility] Physical Medicine & Rehabilitation Clinic [address] [place] [address] [phone] Navi Verduzco PA-C [address] [address] 1, Isd-Lebanese [address] [place] [address] Scheduled Discharge Disposition: Discharged to home or self care (routine discharge) 03/28/2024 2:00 PM CDT Office Visit [facility] Lead Designer [address] [place] [address] Marina Vasquez, [facility] [address] [place] [address] 1, Isd-Lebanese [address] [place] [address] Scheduled Discharge Disposition: Discharged to home or self care (routine discharge) 04/01/2024 11:30 AM CDT [facility]ointment [facility] Physical Therapy [address] [place] [address]67[address] Chandler Zuniga, DO [address] [place] [address] Nikki Delong, PT [address] [place] [address] 1, Isd-Lebanese [address] [place] [address] 96[address] Scheduled Discharge Disposition: Discharged to home or self care (routine discharge) 04/05/2024 1:00 PM CDT [facility]ointment [facility] Physical Therapy [address] [place] [address] Chandler Zuniga, DO [address] [place] [address] 332[address] Nikki Delong, PT [address] [place] [address] 1, Isd-Lebanese [address] [place] [address] 276[address] Scheduled Discharge Disposition: Discharged to home or self care (routine discharge) 04/11/2024 11:00 AM CDT [facility]ointment [facility] Physical Therapy [address] [place] [address] Chandler Zuniga, DO [address] [place] [address] 09[address] Nikki Delong, PT [address] [place] [address] 1, Isd-Lebanese [address] [place] [address] 63551 Scheduled Discharge Disposition: Discharged to home or self care (routine discharge) documented as of this encounter Visit Diagnoses Not on filedocumented in this encounter Additional Health Concerns Assessment Noted Time PHQ-9 Depression Total Score: 5 11/02/19 9:12 AM ASSISTED SALES REPRESENTATIVE PHQ-2 Depression Total Score: 1 11/02/19 9:12 AM ASSISTED SALES REPRESENTATIVE documented as of this encounter Care Teams Picker/Puller Relationship Specialty Start Date End Date Marcela Vera MD [address] [place] [address] 644 [place] [address] PCP - General Family Medicine 12/10/21 Nolberto Campos, PT [address] [place] [address] Physical Therapist Physical Therapy 12/11/21 Nikki Delong, PT [address] [place] [address] Physical Therapist Physical Therapy 03/08/24 documented as of this encounter
--- OUTSIDE RECORDS SUMMARY | 2024-03-26 21:00 | XMS_ITS | Encounter Summary ---
Author Organization [facility] Address [address] [place] [address] Phone Care Team Providers Care Disbursing Officer Name Role Phone Marcela Vera MD Primary Care Provider [phone]- [phone] Nolberto Campos PT Unavailable [phone] Fatemeh Medrano PT Unavailable Unavailable Fatemeh Medrano PT Unavailable Unavailable Encounter Details Date Type Department Care Team (Latest Contact Info) Description 02/26/2024 9:30 AM CDT - 02/26/2024 11:59 PM CDT Hospital Encounter [facility] [place] [address] Keyon Mcneil, LOOM REPAIRER [address] [place] [address] 1, Isd-Serbian [address] [place] [address] Discharge Disposition: Discharged to home or self [...] with others, in a hotel, in a long term, living outside on the street, on a beach, in a car, abandoned building, bus or train station, or in a park) 02/17/2024 Sex and Gender Information Value Date Recorded Sex Assigned at Female 11/05/2021 8:07 PM GAS ANALYST Gender Identity Female 11/05/2021 8:07 PM GAS ANALYST Sexual Orientation Straight 11/05/2021 8: 07 PM GAS ANALYST documented as of this encounter Medications at [...] needed for Sleep. 15 tablet 1 02/25/2024 oxyCODONE (ROXICODONE) 5 mg oral tabletIndications:Acu te Pain Take 1 tablet every 4 hours as needed for pain. DO NOT take more than the daily maximum amount. Stop taking the oxycodone sooner if able. ?? Day - Daily Maximum: Days 1-3: 2 tablets each day; Days 4-7: 1 tablet each day. 10 tablet 02/25/2024 03/03/2024 multivitamin + minerals (CEROVITE SENIOR) oral Take 1 tablet by mouth daily. 30 tablet 1 02/26/2024 03/23/2024 documented as of this encounter Plan of Treatment Upcoming Encounters Date Type Department Care Team (Late st Contact Info) Description 03/28/2024 1:00 PM CDT [facility] Rehabilitation Clinic [address] [place] [address] 16[address] Navi Verduzco PA-C [address] [place] [address] 1, Isd-Serbian [address] [place] [address] Scheduled Discharge Disposition: Discharged to home or self care (routine discharge) 03/28/2024 2:00 PM CDT Office [facility] Machine Operator [address] [place] [address] Marina Vasquez, INFRASTRUCTURE SOLUTIONS ARCHITECT [address] [place] [address] 1, Isd-Serbian [address] [place] [address] Scheduled Discharge Disposition: Discharged to home or self care (routine discharge) 04/01/2024 11:30 AM CDT [facility]ointment [facility] Physical Therapy [address] [place] [address] 9[address] Chandler Zuniga, [address] [address] Nikki Delong, PT [address] [place] [address] 1, Isd-Serbian [address] [place] [address] Scheduled Discharge Disposition: Discharged to home or self care (routine discharge) 04/05/2024 1:00 PM CDT [facility]ointment [facility] Physical Therapy [address] [place] [address] 9[address] Chandler Zuniga, DO [address] [place] [address] Nikki Delong, PT [address] [place] [address] 1, Isd-Serbian [address] [place] [address] 28357 Scheduled Discharge Disposition: Discharged to home or self care (routine discharge) 04/11/2024 11:00 AM CDT [facility]ointment [facility] Physical Therapy [address] [place] [address] 987[address] Chandler Zuniga, DO [address] [place] [address] 225[address] Nikki Delong, PT [address] [place] [address] 1, Isd-Serbian [address] [place] [address] 05142 Scheduled Discharge Disposition: Discharged to home or self care (routine discharge) documented as of this encounter Visit Diagnoses Not on filedocumented in this encounter Additional Health Concerns Assessment Noted Time PHQ-9 Depression Total Score: 5 11/02/19 24 9:12 AM GAS ANALYST PHQ-2 Depression Total Score: 1 11/02/19 24 9:12 AM GAS ANALYST documented as of this encounter Care Teams Disbursing Officer Relationship Specialty Start Date End Date Marcela Vera MD [address] [place] [address] 644 [place] [address] PCP - General Family Medicine 12/10/21 Nolberto Campos, PT [address] [place] [address] Physical Therapist Physical Therapy 12/11/21 Fatemeh Medrano, PT [address] [place] [address] Physical Therapist Physical Therapy 02/26/24 03/07/24 Fatemeh Medrano, PT [address] [place] [address] Physical Therapist Physical Therapy 02/26/24 03/07/24 documented as of this encounter
--- OUTSIDE RECORDS SUMMARY | 2024-03-26 21:00 | XMS_ITS | Encounter Summary ---
Author Organization [facility] Address [address] [place] [address] Phone Care Team Providers Care Supervisor Vacuum Metalizing Name Role Phone Marcela Vera MD Primary Care Provider [phone] Nolberto Campos PT Unavailable [phone] Fatemeh Medrano PT Unavailable Unavailable Fatemeh Medrano PT Unavailable Unavailable Reason for Referral * Service Request (Routine) - New Request Specialty Diagnoses / Procedures Referred By Contac t Referred To Contact Diagnoses Scoliosis of lumbar spine, unspecified scoliosis type Chandler Zuniga DO [address] [place] [id number] Marina Vasquez, [facility] [address] [address] Referral ID Status Reason Start Date Expiration Date V isits Requested Visits Authorized [id number] New Request 02/25/2024 02/24/2025 1 1 * Consult/Test/Treat (Routine) - New Request Specialty Diagnoses / Procedures Referred By Contac t Referred To Contact Physical Medicine and Rehab / PHYSICAL MEDICINE AND REHAB Diagnoses Scoliosis of lumbar spine, unspecified scoliosis type Chandler Zuniga, DO [address] [place] [id number] [facility] [address] [address] Referral ID Status Reason Start Date Expiration Date V isits Requested Visits Authorized [id number] New Request 02/25/2024 02/24/2025 1 1 * Consult/Test/Treat (Routine) - Closed Specialty Diagnoses / Procedures Referred By Sha crowley Referred To Contact Physical Therapy / PHYSICAL THERAPY Diagnoses Lumbar radiculopathy Chandler Zuniga, DO [address] [place] [id number] Referral ID Status Reason Start Date Expiration Date Visits Re quested Visits Authorized [id number] Closed 02/19/2024 02/18/2025 1 1 Reason for Visit * Auth/Cert Specialty Diagnoses / Procedures Referred By Sha crowley Referred To Contact PHYSICAL MEDICINE AND REHAB Diagnoses orthopedic disorders: other orthopedic Chandler Zuniga, DO [address] [place] [id number] [facility] [address] [address] [place] [address] Referral ID Status Reason Start Date Expiration Date Visits Re quested Visits Authorized [id number] 1 1 Encounter Details Date Type Department Care Team (Latest Contact Info) Description 02/17/2024 1:34 PM CDT - 02/26/2024 4:30 PM CDT Hospital Encounter [facility] [address] [place], [place] [id number] Chandler Zuniga, DO [address] [place] [address] Scoliosis of lumbar spine, unspecified scoliosis type [...] with others, in a hotel, in a alf, living outside on the street, on a beach, in a car, abandoned building, bus or train station, or in a park) 02/17/2024 Sex and Gender Information Value Date Recorded Sex Assigned at Female 11/05/2021 8:07 PM PRIVATE DUTY LPN Gender Identity Female 11/05/2021 8:07 PM PRIVATE DUTY LPN Sexual Orientation Straight 11/05/2021 8: 07 PM PRIVATE DUTY LPN documented as of this encounter Last Filed Vital Signs Vital Sign Reading Time Taken Comments Blood Pressure 134/55 02/26/2024 3:28 PM CDT Pulse 89 02/26/2024 3:28 PM CDT Temperature 35.6 ??C (96.1 ??F) 02/26/2024 3:28 PM CD T Respiratory Rate 18 02/26/2024 3:28 PM CDT Oxygen Saturation 94% 02/26/2024 3:28 PM CDT Inhaled Oxygen Concentration - - Weight 49.6 kg (109 lb 5.6 oz) 02/21/2024 7:57 P M CDT Height 127 cm (4' 2) 02/17/2024 1:30 PM CDT Body Mass Index 30.75 02/17/2024 1:30 PM CDT documented in this encounter Discharge Summaries * Chandler Zuniga, DO - 02/26/2024 10:27 AM CDT PHYSICAL MEDICINE AND REHABILITATION DISCHARGE SUMMARY - Attending Physician Alondra Aguilar : 1950 Sex: female Date of Admission: 02/17/2024 Date of Discharge: 02/26/2024 Disposition: Home Primary care physician: Marcela Vera MD Other significant medical provider group(s): None No Known Drug Allergies DISCHARGE DIAGNOSIS: orthopedic disorders: other orthopedic PROCEDURES/IMAGING/LABS: Lab Results Component Value Date/Time WBC 7.67 02/22/2024 0709 RBC 3.20 (L) 02/22/2024 0709 HGB 9.4 (L) 02/22/2024 0709 HCT 30.0 (L) 02/22/2024 0709 PLT 518 (H) 02/22/2024 0709 MCV 93.8 02/22/2024 0709 MCH 29.4 02/22/2024 0709 MCHC 31.3 02/22/2024 0709 RDW 17.1 (H) 02/22/2024708 MPV 8.6 02/22/2024 07 NRBCA 0.4 (H) 02/22/2024708 Lab Results Component Value Date/Time NA 137 02/25/2024521 K 4.4 02/23/2024523 CHLORIDE 99 02/23/2024523 CO2 29 02/23/2024523 GLU 92 02/23/2024523 UN 17 02/23/2024523 CR 0.42 (L) 02/23/2024523 CA 8.6 (L) 02/23/2024523 [facility]: HPI: Alondra Aguilar is a 73 y.o. female with chronic medical conditions including HTN, chronic low back pain, degenerative scoliosis admitted to [facility] 02/10/24 for elective spinal fusion T11-S2, and left L5-S1 PLIF. Post-op course has been unremarkable, TLSO brace obtained. Removal of L hemovac drain done 02/14. The patient was determined to be a good candidate for acute inpatient rehabilitation and was transferred to [place] service on 02/17/2024. She progressed well with therapies. She had ongoing pain in thelegs which was improved with oral medications. She had developed blisters from the TLSO which were covered with dry dressings (and the TLSO was modified by baltazar). She will f/u with NSGY, PM&R,and outpatient PT. Rehab Course, Assessment/Plan: #Nutrition: - cont current diet of Easy to chew 7 with thins. Has hx of chronic difficulties with chewing food and swallowing due to dentures. Quality Eng followed with recs for smaller frequent meals. -Okay to be on regular/thins at [place]. #Bladder: continent for bladder. #Bowels: Continent and regular BM's. 02/18 Had initial multiple loose stools but improved on [id number] g p.o. daily PRN and Senna 8.6 g p.o. twice daily PRN. - No bowel meds at discharge. #Skin: No pressure injuries noted upon admission. - Midline surgical incision cdi and SHRUTHI, sutures removed on 02/19 - Has abrasions/blister on skin of gluteal region due to TLSO fitting, healing since TLSO adjustment on 02/17. Was followed by wound nurse, no acute concerns from site. - 02/24 Healing surgical incision, with some dryness. Added Aquaphor for moisture. -- PCP f/u on skin for abrasions. #Pain management: Location of pain hips and slower middle back region. - Tylenol 975 TID PRN to maximize non opoid pain medication. Was scheduled at [place]. - Oxycodone 5-10 mg Q4H PRN. Discharged with a 7 day taper of oxycodone. - PCP f/u for pain. #Sleep/agitation: Sleeping well 02/19/2024 until 02/21. Notable insomnia. - Dsicharge Home on Trazodone 25 mg HS PRN has tolerated well. (New medication for insomnia at [place]) Medical Co-morbidities that necessitate inpatient hospitalization and frequent medical supervision: # Chronic low back pain with L5 radiculopathy s/p T11-S2 fusion and left L5-S1 PLIF # Scoliosis of lumbar spine PT/OT for comprehensive rehabilitation, Psychology for adjustment support, SW for community reentry, chest pain coordinator for assistance with discharge planning. -Pain management as above -Flexeril 10 mg for muscle spasms - was not using at [place] and thus did not order at [place]. # Hypertension: VS BID for BP monitoring. She remained normotensive. Has SERVICE REPRESENTATIVE Amlodipine 5 mg daily did not take during admission due to low BP's at initial admission. - Continue to HOLD Amlodipine, PCP to follow and reintroduce when necessary. # Anemia Possibly secondary to blood loss during surgery. Hgb improved to 9.3 on 02/21. - PCP to follow with CBC's. # Mild Hyponatremia: resolved -BMP 02/19/2024 reviewed showing Na 133. Did have back surgery but is not a brain injury and thus inherently less likely to be an SIADH picture. May be nutritional yet etiology is unclear. No symptomsof fatigue, somnolence, or decrease in strength. 02/21 reassessment with Na 132. Required more workup as to cause (had no meds to cause loss, no edema on exam and has moist mucous membranes and remains asxs). Did Urine Osm, and urine Na. 02/22 Na up to 134, with low Urine Na and wnl Osmolality. 02/24 Na improved and now wnl with oral fluid intake. - PCP to follow with BMP. #Risk for anemia/infection/electrolyte abnormalities: -Weekly BMP/CBC while at [place] #VTE prophylaxis: 02/23 discontinued Lovenox 30 mg daily subcutaneously as ambulating community distances. #CODE STATUS: Full Code per discussion with patient. #ELOPEMENT RISK: Not necessary Follow-up Appointment Recommendations after discharge: -PCP within 7 days of [place] discharge - NSGY 02/23 follow-up and 03/23 outpatient clinic appointment PM & R Specific Follow-up: -PM&R Discharge follow up in 2-4 weeks. -PM&R SW: follow up for resource support and complex discharge needs. - PT follow up Required questions/answers at discharge: Pain Effect on Sleep Ask patient: ???Over the past 5 days, how much of the time has pain made it hard for you to sleep at night??? Pain Effect on Sleep: 3. Frequently If patient says they have not had any pain over the past 5 days, delete this statement and the next2 questions. Pain Interference with Therapy Activities Ask patient: ???Over the past 5 days, how often have you limited your participation in rehabilitation therapy sessions due to pain? 1. Rarely or not at all Pain Interference with Day-to-Day Activities Ask patient: ???Over the past 5 days, how often have you limited your day-to-day activities (excluding rehabilitation therapy sessions) because of pain??? 1. Rarely or not at all Primary Rehabilitation Diagnosis: orthopedic disorders: other orthopedic Rehab Course: Please refer to the individual therapy discipline consult and discharge summaries forfurther details. PT- - Outpatient PT recommended at discharge Transfer & Bed Mobility Roll Left: Modified independent (02/26/24 1030) Roll Right: Modified independent (02/26/24 1030) Supine to/from Sit: Modified independent (02/26/24 1030) Sit to/from Stand: Modified independent (02/26/24 1030) Sit to/from Stand - Method: From standard seat height;w/ Assistive device (w/ FWW) (02/26/24 1030) Bed to/from Chair: Modified independent (02/26/24 1030) Bed to/from Chair - Method: From standard seat height;Standing pivot w/ AD (02/26/24 1030) Bed to/from W/C: Modified independent (02/23/24 09) Bed to/from W/C - Method: From standard seat height;Standing pivot w/ assistive device;Bears weightthrough R LE;Bears weight through L LE (02/23/24 09) Car Transfer: Minimal assist (02/21/24 1100) Car Transfer - Method: Standing pivot w/ assistive device;Bears weight through L LE;Bears weight through R LE (02/21/24 1100) Gait Distance (m): 80 m (and 40) (02/26/24 103) Device: Front wheeled walker (02/26/24 103) Assistance: Modified independent (household exemption) (SBA) (02/26/24 103) Gait Quality (General): Slowed;Shuffling;Unsteady (02/26/24 103) Gait Quality (Right side): Decreased push-off (02/26/24 103) Stairs Number of Steps: 4 (02/26/24 1030) Stair Rails: Right rail (02/26/24 1030) Stairs : Stand by assist (02/26/24 103) Stairs Method: Bears weight through R LE;Bears weight through L LE;Descend step- to pattern;Ascend step-to pattern (02/26/24 103) Assistive Devices Used: None;Front wheeled walker (going backwards up one step then sitting on a chair.) (02/25/24 1200) OT- - No OT recommended at discharge Activities of Daily Living Grooming: Modified independence (02/25/24 1100) Grooming Comments: standing at sink (02/20/24 1200) Toileting: Modified independence (02/25/24 1100) Toileting Comments: including wiping using toilet tongues, and managing clothing (02/25/24 1100) Bathing: Minimal assist (75% patient effort) (02/25/24 1100) Bathing Comments: using shower chair and hand held shower head (02/25/24 1100) Upper Body Dressing: Supervision/Stand by assist;Verbal cues;Modified independence (02/25/24 1100) Upper Body Dressing Comments: to doff/don shirt underneath brace, to don/doff TLSO and to don/doff shirt on top of brace with increased time (02/25/241099) Upper Body Dressing Techniques & Equipment: Patient Ed (02/19/24 1000) Lower Body Dressing: Supervision/Stand by assist;Verbal cues;Modified independence (02/25/241099) Lower Body Dressing Comments: to doff/don underwear, shorts, socks and shoes using AE. (02/25/24 1100) Lower Body Dressing Techniques & Equipment: Patient Ed (02/25/241099) Functional Mobility Supine to/from Sit: Modified independence (02/25/241099) Sit to/from Stand : Modified independence (02/25/241099) Sit to/from Stand - Method: w/ Assistive device (02/25/241099) Bed to/from Chair: Modified independence (02/25/241099) Bed to/from Chair - Method: Standing pivot w/ AD;From standard seat height (02/25/241099) Bed to/from W/C: Modified independence (02/25/241099) Bed to/from W/C - Method: Standing pivot w/ assistive device (02/25/241099) Toilet Transfer: Modified independence (02/25/241099) Toilet Transfer- Method: Grab bar (02/25/24 1100) Tub Transfer: Supervision/Stand by assist (02/25/241099) Tub Transfer- Method: Grab bar(s);Shower chair (02/25/241099) Bed to Bathroom: Modified independence (02/25/241099) Bed to Bathroom- Method: Front wheeled walker (02/25/24 1100) Functional Mobility in Room- Task Done: pt ambulates from room to dynavision room and back (02/22/24 1200) Functional Mobility in Room: Supervision/Stand by assist (02/22/241199) Functional Mobility in Room- Method: Front wheeled walker (02/22/241199) PENDING TESTS RESULTS: PHYSICAL EXAMINATION AT DISCHARGE: BP 110/58 (Cuff Location: Left Arm) Pulse 94 Temp 36.3 ??C (97.3 ??F) (Temporal) Resp 18 Ht1.27 m (4' 2) Wt 49.6 kg (109 lb 5.6 oz) SpO2 93% BMI 30.75 kg/m?? General: Alert and cooperative, NAD. Eyes: Sclera non-icteric, EOMI, PERRLA HENT: Normocephalic, no rhinorrhea, MMM. Cardiac: R/R/R. No edema noted bilateral LEs. Good peripheral perfusion in b/l UE/LE. Respiratory: CTA A/P bilaterally. Breathing comfortably on room air. No wheeze/rhonchi. Gastrointestinal: Bowel sounds present, abdomen soft, nondistended, nontender. Musculoskeletal: Moving all 4/4 extremities voluntarily against gravity. 5/5 strength in b/l UE. Standing on b/l legs without tremor or LoB. Neurological: Speech fluent/comprehensible. Strength as above in MSK. Skin: Exposed skin warm, dry. Psych: affect pleasant, goal oriented speech. Malnutrition Malnutrition Characteristics Etiology: Acute illness/Injury Energy Intake: Adequate Weight loss:: None Body fat:: WNL Muscle mass:: WNL Fluid accumulation:: None Malnutrition Diagnosis: No Weight: 49.6 kg (109 lb 5.6 oz) Wt Change from Previous: -3.71 Kg Wt Change from Admit: -3.71 Kg % Wt Change from Adm: -6.94 % [place] Body Wt (IBW) Female (kg): 22.5 kg Home Energy Inspector Needed: yes- Algerian [35] MEDICATIONS AT DISCHARGE Medication List START taking these medications multivitamin + minerals [place] 1 tableta por la boca cada hipolito. (Take 1 tablet by mouth daily.) traZODone 50 mg tablet Commonly known as: DESYREL [place] media tableta (25 mg) por v??a oral antes de acostarse, seg??n sea necesario para dormir. (Take one-half tablet (25 mg) by mouth at bedtime as needed for Sleep.) CHANGE how you take these medications acetaminophen 325 mg tablet Commonly known as: TYLENOL Take 3 tablets (975 mg) by mouth 3 times daily as needed for Mild Pain. Indications: PainThis is over the counter. Obtain from your local pharmacy and follow the instructions on the bottle. Do not exceed 3000 mg per day What changed: how much to take when to take this reasons to take this additional instructions oxyCODONE 5 mg tablet Commonly known as: ROXICODONE [place] 1 tableta cada 4 horas seg??n sea necesario para el dolor. NO tome m??s de la cantidad m??ximadiaria. Deje de yobani oxicodona antes si puede. D??a - M??ximo diario: D??as 1-3: 2 tabletas cada hipolito; D??as 4-7: 1 tableta cada hipolito. (Take 1 tablet every 4 hours as needed for pain. DO NOT take more than the daily maximum amount. Stop taking the oxycodone sooner if able. Day - Daily Maximum: Days 1-3: 2 tablets each day; Days 4-7: 1 tablet each day.) What changed: how much to take how to take this when to take this reasons to take this additional instructions STOP taking these medications amLODIPine 5 mg Tabs Commonly known as: NORVASC cyclobenzaprine 10 mg Commonly known as: FLEXERIL polyethylene glycol 3350 17 g Packet Commonly known as: MIRALAX;GLYCOLAX senna 8.6 mg tablet Commonly known as: SENOKOT Where to Get Your Medications These medications were sent to [facility] Discharge Pharmacy - [place] [id number] Hours: 27/04 multivitamin + minerals oxyCODONE 5 mg tablet traZODone 50 mg tablet Information about where to get these medications is not yet available Ask your nurse or doctor about these medications acetaminophen 325 mg tablet READMISSION PLANNED WITHIN 30 DAYS OF DISCHARGE? No Restrictions: General precautions including - No driving No working No alcohol or drugs No strenuous exercise or contact sports -10 pound lifting restriction until cleared by NSGY Level of Supervision: as needed Decision Maker: Self (02/24/24 1100) Discussed diagnosis and treatment plan with the patient. Patient verbalized understanding of condition and treatment plan. The discharge process has taken greater than 30 minutes. Chandler Zuniga DO, 02/26/2024 3:25 PM Physical Medicine & Rehabilitation documented in this encounter Medications at Time of Discharge [...] 02/26/2024 03/23/2024 documented as of this encounter Progress Notes * Lakshmi Castro RN - 02/26/2024 3:23 PM CDT DISCHARGE NOTE D: Patient is being discharged. Patient discharging home with family A: (As documented in the Discharge Planning Flowsheet) Discharge Instructions (AVS): given to patient Discharge clothing/valuables: Sent home with patient Discharge medications: Given Home equipment status: N/a Home equipment/supplies recommended: N/a Final discharge destination: Home R: The patient and family understood the AVS. yes P: Support patient and family if they call back with questions. Lakshmi Castro, RN, 02/26/2024 3:25 PM * Landy Pineda OTR/Jordon - 02/26/2024 3:09 PM CDT Occupational Therapy Progress Note 02/26/2024 Current [facility] DC Plan Anticipated DC Date: 02/26/24 Potential DC location: Home or Self Care Progress from OT standpoint: OT Discharge Recommendations Discharge Recommendations: Safe for discharge to home/community/prior residence. Barriers to discharge to home/community: None - Patient is safe to DC from OT standpoint. Supervision / Assistance Recommended for home DC: Yes Physical assistance recommended for (OT): Bathing;Meal preparation;Transportation;Laundry Post Discharge Follow-up: No OT follow-up needs after discharge Equipment Recommended: Shower chair with back (leg intake clerk, sock aid, security system analyst, long shoe horn) Equipment Status: Patient/caregivers lack resources to access equipment ([employer] has been contacted for donation - they are donating shower chair with back - family has already picked up the small walker and the shower chair with back .OT department provided leg intake clerk, long shoe horn, sock aidand security system analyst) Precautions/Restrictions: Activity Level: Up Ad [place] (02/19/24 1000) Spinal Precautions: TLSO - OK to don in sitting (needs to stand to fit for brace. No lifittng more than # 10) (02/19/24 1000) Diet Precautions Per AFTER SCHOOL PROGRAM TEACHER SUBJECTIVE: pt reports feeling confident in DC Pain Pain Rating With Activity (Numeric): no overt signs of pain Action Taken: No action needed OBJECTIVE: pt seen in room to complete brief caregiver training with pt's daughter. Cognition / Visual Perception Mental Status: Alert;Cooperative;Follows 2 step directions Patient / Caregiver Training: Caregiver Training Status (OT): Completed Caregiver Training Comments (OT): Pt's daughter present and completed training regarding shower andADL sequence in regards to TLSO. Pt and daughter report understanding of education. ASSESSMENT: Pt has met her OT goals and is safe to DC home with PRN assist from family. No OT needss/p DC. PLAN: Continue skilled OT services to achieve the goals on the plan of care: Total treatment time: 10 minutes OT Interventions and time spent on each: Self care/Home mgmt/ADL: 10 minutes OLIVIA Hanson Pager: [facility] OT Department * Keyon Mcneil P, SERVICE REPRESENTATIVE - 02/26/2024 12:34 PM CDT Problem: Decreased Ambulatory Skills Goal: Improve gait Description: Ambulate 50 meters using Front - wheeled walker or LRAD with (6) Modified Independencein order to ambulate around her home by 03/04/24. Outcome: Met Problem: Decreased Ambulatory Skills Goal: Improve gait on stairs Description: Ascend/descend 6 stairs using No assistive devices with (6) Modified [place] in order to get to the basement of the home by 03/04/24. Outcome: Discharged with plan in place Physical Therapy Progress Note PT Discharge Recommendations Current [facility] DC Plan: Anticipated DC Date: 02/26/24 Potential DC location: Home or Self Care Who is helping at DC: Progress from PT standpoint: On track for current DC plan from PT standpoint Discharge Plan Discharge Recommendations: If supervision/assistance is available, safe to discharge to home/community/prior residenc. (PRN assist with ADL's per OT recommendations) Post discharge follow-up: Outpatient PT recommended * Equipment Status: Equipment needs being determined PT Equipment Recommended: Front wheeled walker S: Patient is agreeable to participation in the therapy session., Patient seen in room, Patient seen in gym. , and Patient brought to gym by transport Pain Pain Rating With Activity (Numeric): 5 (left low back) Participation Significantly Limited?: No O:Home Energy Inspector Used: Yes, agency or phone project superintendent Mental Status Mental Status: Alert;Cooperative Follows Directions: Consistently follows commands Restrictions/Precautions Precautions: Thoracic Spine Precautions;Lumbar Spine Precautions (Don TLSO EOB or when HOB > 30 deg) Complies w/ Precautions?: Yes Transfer & Bed Mobility Roll Left: Modified independent Roll Right: Modified independent Supine to/from Sit: Modified independent Sit to/from Stand: Modified independent Sit to/from Stand - Method: From standard seat height;w/ Assistive device (w/ FWW) Bed to/from Chair: Modified independent Bed to/from Chair - Method: From standard seat height;Standing pivot w/ AD Gait Distance (m): 80 m (and 40) Device: Front wheeled walker Assistance: Modified independent (household exemption) (SBA) Gait Quality (General): Slowed;Shuffling;Unsteady Gait Quality (Right side): Decreased push-off Stairs Number of Steps: 4 Stair Rails: Right rail Stairs : Stand by assist Stairs Method: Bears weight through R LE;Bears weight through L LE;Descend step- to pattern;Ascend step-to pattern Sitting Static Balance Level of Assistance: Independent Trunk Control: WNL Interdisciplinary Communication PT: DC plans today Fall Risk Assessment: None of the above A: The patient was agreeable to the session. The patient is being discharged to home with family support today. This session went over the care tool with pt scoring (I) 6's except with the stairs in which she needs supervision. Also went over HEP with pt. This PM will complete family training on stairs and HEP. Family is to have picked up pt's equipment from [employer]. P: DC after next visit in which family training is to take place. Keyon Mcneil, TITI 02/26/2024 Pager: [employer] PT Department * Judy Yang, OTR/L - 02/25/2024 2:52 PM CDT Occupational Therapy Progress Note 02/25/2024 Current [facility] DC Plan Anticipated DC Date: 02/26/24 Potential DC location: Home or Self Care Progress from OT standpoint: Interdisciplinary DC plan not yet set - OT ELOS is (*). (~ 10 to 14 days from admission) OT Discharge Recommendations Discharge Recommendations: If supervision/assistance is available, safe to discharge to home/community/prior residence. Per pt daughter will stay with her to ensure safety. Barriers to discharge to home/community: None - Patient is safe to DC from OT standpoint. Supervision / Assistance Recommended for home DC: Yes Physical assistance recommended for (OT): Bathing;Meal preparation;Transportation;Laundry Post Discharge Follow-up: No further OT services after d/c Equipment Recommended: Shower chair with back Equipment Status: Patient/caregivers lack resources to access equipment ([employer] has been contacted for donation - they are donating shower chair with back - family has already meat pickler the small walker and shower chair with back) Precautions/Restrictions: Activity Level: Up Ad [place] (02/19/24 1000) Spinal Precautions: TLSO - OK to don in sitting (needs to stand to fit for brace. No lifittng more than # 10) (02/19/24 1000) Diet Precautions Per AFTER SCHOOL PROGRAM TEACHER Complies w/ Precautions?: Yes Home Energy Inspector Used: No, certified bilingual staff SUBJECTIVE: Cooperative and giving a good effort Pain Pain Rating With Activity (Numeric): (not rated) Location: L LE Participation Significantly Limited?: No Action Taken: Nursing aware and addressing OBJECTIVE: Activities of Daily Living Grooming: Modified independence Toileting: Modified independence Toileting Comments: including wiping using toilet tongues, and managing clothing Bathing: Minimal assist (75% patient effort) Bathing Comments: using shower chair and hand held shower head Upper Body Dressing: Supervision/Stand by assist;Verbal cues;Modified independence Upper Body Dressing Comments: to doff/don shirt underneath brace, to don/doff TLSO and to don/doff shirt on top of brace with increased time Lower Body Dressing: Supervision/Stand by assist;Verbal cues;Modified independence Lower Body Dressing Comments: to doff/don underwear, shorts, socks and shoes using AE. Lower Body Dressing Techniques & Equipment: Patient Ed Functional Mobility Supine to/from Sit: Modified independence Sit to/from Stand : Modified independence Sit to/from Stand - Method: w/ Assistive device Bed to/from Chair: Modified independence Bed to/from Chair - Method: Standing pivot w/ AD;From standard seat height Bed to/from W/C: Modified independence Bed to/from W/C - Method: Standing pivot w/ assistive device Toilet Transfer: Modified independence Toilet Transfer- Method: Grab bar Tub Transfer: Supervision/Stand by assist Tub Transfer- Method: Grab bar(s);Shower chair Bed to Bathroom: Modified independence Bed to Bathroom- Method: Front wheeled walker Cognition / Visual Perception Mental Status: Alert;Cooperative;Follows 2 step directions Delirium Assessment: Confusion Assessment Method (CAM) Delirium prevention / intervention appears indicated? Interventions provided - engaged pt in functional tasks - promoted mobility Therapeutic Exercise/Activity/Neuromuscular Re-Education Patient / Caregiver Training: Caregiver Training Status (OT): Not yet attempted Caregiver Training Comments (OT): . Interdisciplinary Communication: ASSESSMENT: Making good progress towards OT goals. Consistently modified independent for toileting and light grooming standing at the sink. Transitioning to be modified independent for UB dressing including donning/doffing the brace, and for LB dressing using AE with increased time. Will pt one time tomorrow before discharge at 3 pm when family is coming to meat pickler patient for family training (focusing on shower process) and will discharge. Family has picked up the small walker and shower chairfrom [employer]. No further OT services after d/c PLAN: Continue skilled OT services to achieve the goals on the plan of care: Total treatment time: 84 minutes OT Interventions and time spent on each: Self care/Home mgmt/ADL: 84 minutes Judy Yang OTR/Jordon Pager: [facility] [facility] OT Department * Keyon Mcneil, SERVICE REPRESENTATIVE - 02/25/2024 12:54 PM CDT Problem: Decreased Ambulatory Skills Goal: Improve gait on stairs Description: Ascend/descend 6 stairs using No assistive devices with (6) Modified [place] in order to get to the basement of the home by 03/04/24. Outcome: In progress Problem: Decreased Ambulatory Skills Goal: Improve gait Description: Ambulate 50 meters using Front - wheeled walker or LRAD with (6) Modified Independencein order to ambulate around her home by 03/04/24. Outcome: Met-Continue to follow Physical Therapy Progress Note PT Discharge Recommendations Current [facility] DC Plan: Anticipated DC Date: 02/26/24 Potential DC location: Home or Self Care Who is helping at DC: Progress from PT standpoint: On track for current DC plan from PT standpoint Discharge Plan Discharge Recommendations: Safety risk for discharge home today. Post discharge follow-up: Outpatient PT recommended * Equipment Status: Equipment needs being determined PT Equipment Recommended: Front wheeled walker S: Patient is agreeable to participation in the therapy session., Patient seen in room, Patient seen in gym. , and Patient brought to gym by transport Pain Pain Rating With Activity (Numeric): (no complaints of pain) Participation Significantly Limited?: No O:Home Energy Inspector Used: Yes, [facility] project superintendent Mental Status Mental Status: Alert;Cooperative Follows Directions: Consistently follows commands Restrictions/Precautions Precautions: Thoracic Spine Precautions;Lumbar Spine Precautions (Don TLSO EOB or when HOB > 30 deg) Complies w/ Precautions?: Yes Transfer & Bed Mobility Sit to/from Stand: Modified independent Sit to/from Stand - Method: From standard seat height;w/ Assistive device (w/ FWW) Gait Distance (m): 60 m (x 1 plus shorter walks in the gym) Device: Front wheeled walker Assistance: Modified independent (household exemption) (for shorter distances) Gait Quality (General): Slowed;Shuffling;Unsteady Gait Quality (Right side): Decreased push-off Stairs Number of Steps: 4 (x 2) Stair Rails: None Stairs : Minimal assist Stairs Method: Bears weight through R LE;Bears weight through L LE;Descend step- to pattern;Ascend step-to pattern Assistive Devices Used: None;Front wheeled walker (going backwards up one step then sitting on a chair.) Sitting Static Balance Level of Assistance: Independent (with feet on the floor.) Trunk Control: Decreased core Stability Sitting Eyes Open (sec): (sitting edge of chair to place on slippers and socks) Exercises Sitting LAQ Reps: 10 reps Seated Hip Flexion : 10 reps Heel/Toe Raises: 10 reps Bicep Curls: 10 reps Isometric ABDuction: 10 reps Isometric ADDuction: 10 reps Core Stability (comment surface): 40 reps (mat) Interdisciplinary Communication PT: 6th visit Fall Risk Assessment: None of the above A: The patient was agreeable to the session. The patient was able to complete stairs w/ min A, cuesand demonstration of technique and use of only one railing. Has been able to perform the stgeps with a rail on the left and right. Worked on left hip strength with standing abd, side stepping , seated hip strengthening with MR and active lifting. Does continue to complain of left hip and low back pain. Did shows improving strength both hips but still better on her right. She overall is mod I for all other mobility and should be ready to d/c home on Thursday with continued OP PT. Mobility Recommendations On Unit: Safe to be up in room during day (w/ FWW) Elopement Risk (PT): No [facility] Specific Recommendations Caregiver Training Status (PT): Not yet attempted [facility] ELOS (PT): On track for current DC plan from PT standpoint P: Patient will be seen 2x/day for 30-60 min 6 days/week in order to progress towards PT related goals. Next visit progress: care tool and HEP. ambulation w/ FWW longer distances, sit to stands, stairs w/ only one railing, lateral step ups, standing hip strengthening, stepping over items, NuStep SERVICE REPRESENTATIVE Appropriate: Yes Keyon Jude Mcneil, SERVICE REPRESENTATIVE 02/25/2024 Pager: [facility] Department Associated attestation - Rebecca Rodarte, PT - 02/25/2024 4:27 PM CDT PT observed SERVICE REPRESENTATIVE 6th visit. Any changes or updates in POC or interventions have been noted. PT agrees with SERVICE REPRESENTATIVE interventions. Rebecca Rodarte, PT, 02/25/2024 4:27 PM * Chandler Zuniga, DO - 02/25/2024 7:38 AM CDT PM&R Progress Note Patient: Alondra Aguilar Admission Date: 02/17/2024 Date of Service: 02/25/2024 Rehab diagnosis/ chief complaint: orthopedic disorders: other orthopedic Subjective Notes and chart reviewed for the last 24 hrs. No significant events reported. Continent for bowel and bladder. Alondra Aguilar was seen with a utilization coordinator via video. She reports she has L. Lower lumbar intermittent pain which is sharp in nature, onset was this morning. She has been unableto stay comfortable today. She also has pain going down R. Thigh in the anteromedial aspect, does not cross knee. She thinks the Tylenol has started working but had only taken this an hour prior. Shehas had a better night of sleep since starting the trazodone. Updated her about the Na which is currently normal. ROS:denies KERNS/CP/Abd pain/flu symptoms. Mobility - Transfers and Bed Mobility: Supine to/from Sit: Stand by assist (02/22/24 1430) Sit to/from Stand: Modified independent (02/24/24 1500) Bed to/from W/C: Modified independent (02/23/24 0900) Gait: Distance (m): 45 m (x2) (02/24/24 1500) Device: Front wheeled walker (02/24/24 1500) Assistance: Modified independent (household exemption) (for shorter distances) (02/24/24 1500) Self Care - Grooming: Modified independence (02/24/24 1500) Toileting: Modified independence (02/24/24 1500) Bathing: Minimal assist (75% patient effort) (02/24/24 1500) Upper Body Dressing: Supervision/Stand by assist;Verbal cues;Modified independence (02/24/24 1500) Lower Body Dressing: Minimal assist (75% patient effort) (02/24/24 1500) Bowel Last Bowel Movement: 02/24/24 (02/24/24 1700) Objective BP 116/57 (Cuff Location: Left Arm) Pulse 90 Temp 35.9 ??C (96.6 ??F) (Tympanic) Resp 20 Ht1.27 m (4' 2) Wt 49.6 kg (109 lb 5.6 oz) SpO2 98% BMI 30.75 kg/m?? General: Alert and cooperative, NAD. Eyes: Sclera non-icteric, EOMI, PERRLA HENT: Normocephalic, no rhinorrhea, MMM. Cardiac: No murmur. R/R/R. No edema noted bilateral LEs. Good peripheral perfusion in b/l UE/LE. Respiratory: CTA A/P bilaterally. Breathing comfortably on room air. No wheeze/rhonchi. Gastrointestinal: Bowel sounds present, abdomen soft, nondistended, nontender. Musculoskeletal: Moving all 4/4 extremities voluntarily against gravity. 5/5 strength throughout b/l UE. Freely moving b/l LE against gravity without tremor. Tenderness in the R. anteromedial thigh without masses, tenderness in the L. Lower lumbar region. Extremities: Calves soft, non-tender bilaterally. Neurological: Speech fluent/comprehensible. Strength as above in MSK. Skin: Exposed skin warm, dry. Incision is healing well with dry skin para incisional line. Psych: affect pleasant, goal oriented speech. Relevant Imaging/Studies: Results for orders placed or performed during the hospital encounter of 02/17/24 (from the past 24 hour(s)) SODIUM Result Value Ref Range Sodium 137 135 - 148 mmol/L Impression Alondra Aguilar is a 73 y.o. female with chronic medical conditions including hypertension, chronic low back pain, degenerative scoliosis, admitted to [facility] February 10, 2024 for elective spinal fusion T11-S2 and left L5-S1 PLIF. Had two Hemovac drains in place postoperatively, both of which have been removed 02/14. Functionally remains below baseline with regard to mobility and self-care, requiring rehabilitation. Alondra Aguilar admitted to [facility] 02/17/2024 for acute inpatient rehabilitation related to orthopedic disorders: other orthopedic. Precautions: Fall Restrictions: wear TLSO when HOB >30 degrees and when on EOB Plan #Nutrition: - cont current diet of regular with thins. - 02/21 difficulty in chewing food and swallowing due to dentures. Will start an east to chew diet 7to help with this. - 02/22 Quality Eng following for smaller frequent meals. #Bladder: continent, PVR/IC PRN per protocol. Patient has been using a diaper in bed during the nighttime. - PVR 0 upon admssion #Bowels: cont bowel program of the following medications Patient on opioid management for pain will monitor bowel movements can be high risk for constipation. -MiraLAX 17 g p.o. daily PRN -Senna 8.6 g p.o. twice daily PRN - 02/18 after multiple BM's in 24 hours. Bowel meds were changed to PRN. #Skin: No pressure injuries noted upon admission. Continue to assess with Nima score and daily provider/nursing discussion - Midline surgical incision cdi and DIRECTOR COUNSELING BUREAU, sutures removed on 02/19 - Has abrasions/blister on skin of gluteal region due to TLSO fitting. - 02/17 F/u on [facility] for brace refitting - 02/22 continue to monitor skin at blister site. Wound nurse followed and recs in note on 02/21. - 02/24 Healing incision, with some dryness. Added Aquaphor for moisture. #Pain management: Location of pain hips and slower middle back region. - 02/21 changed Tylenol 650 mg Q4h PRN to 975 TID to maximize non opoid pain medication. - Oxycodone 5 to 10 mg every 4 hours as needed - Continuing to intermittently use oxycodone. Will continue to encourage weaning down. - Continue to wean opioids as able. Continue to assess risk of cognitive side effects #Sleep/agitation: Sleeping well 02/19/2024 until 02/21. Notable insomnia. - 02/23 started Trazodone 25 mg HS with good effect. #Self management of medical condition: nursing to continue pt education as appropriate #Cognition/adjustment to disability: pt to see clinical psych as able #Safety: Continue [place] safety protocol #Community re-entry: Patient to see Burial Vault Deliverer And Installer during admission #Family training/education: Family will be educated as needed #D/C planning: Ongoing, [employer] V[employer] Deliverer And Installer consulted for assistance #Patient goals/preferences: Improve on strength and balance. Medical Co-morbidities that necessitate inpatient hospitalization and frequent medical supervision: # Chronic low back pain with L5 radiculopathy s/p T11-S2 fusion and left L5-S1 PLIF # Scoliosis of lumbar spine -PT/OT for comprehensive rehabilitation -Psychology for adjustment support -Social work for community reentry -chest pain coordinator for assistance with discharge planning -Pain management as above -Flexeril 10 mg for muscle spasms -pain management as above # Hypertension: Vital signs twice daily for blood pressure monitoring. - Has SERVICE REPRESENTATIVE Amlodipine 5 mg daily not taking during admission due to low- normotensive BP's. Will assess and reintroduce antihypertensive if BP's go up. - BP reviewed for past 24 hours, SBP WNL. Continue to assess, no indication to restart SERVICE REPRESENTATIVE meds. # Anemia Possibly secondary to blood loss during surgery - Hgb 8.3 on 02/14. - CBC 02/19/2024 showed grossly unchanged Hgb. - 02/21 increase in hgb to 9.3, will continue to assess qMonday CBC # Mild Hyponatremia: resolved -BMP 02/19/2024 reviewed showing Na 133. Did have back surgery but is not a brain injury and thus inherently less likely to be an SIADH picture. May be nutritional yet etiology is unclear. No symptomsof fatigue, somnolence, or decrease in strength. - 02/21 reassessment with Na 132. Will repeat AM lab with BMP. Requires more workup as to cause (hasno meds to cause loss, no edema on exam and has moist mucous membranes and remains asxs). Will alsoadd urine studies of Urine na and osmolality. If Na is low will increase Na intake, if normal and osmolality wnl will consult medicine for assessment. - 02/22 Na up to 134, with low Urine Na and wnl Osmolality, will encourage oral fluid intake, and reassess on 02/24. - 02/24 Na wnl continue to monitor and encourage oral fluid intake. #Risk for anemia/infection/electrolyte abnormalities: -Weekly BMP/CBC while at [place] #VTE prophylaxis: 02/23 discontinued Lovenox 30 mg daily subcutaneously as ambulating community distances. #CODE STATUS: Full Code per discussion with patient. #ELOPEMENT RISK: Not necessary Follow-up Appointment Recommendations after discharge: -PCP within 7 days of [place] discharge -PM&R within 2-4 weeks from [facility] discharge if going home, or 4-6 weeks if going to a facility - Social work referral for patients going home - refer to Marina Onstad to eval and assist - NSGY 02/23 follow-up and 03/23 outpatient clinic appointment Decision maker: Self Anticipated Discharge Date / ELOS: 02/26/24 Expected Discharge Disposition: Home or Self Care - Pt is medically appropriate to continue the comprehensive inpatient rehab program as of today 02/25/2024. Patient was seen and discussed with Dr. Zuniga who agreed with the assessment and plan. Cheli Pisano MD Resident Physician PGY-3 Physical Medicine and Rehabilitation [facility] FACULTY NOTE I saw and evaluated the patient on the date of the resident's note. I discussed with the resident and agree with the resident???s findings and plan documented in the resident???s note from above. Anyrevisions by me are documented. Total time spent on this encounter, on the date of service including pre-visit review of separatelyobtained history, [id number] interaction performing medically appropriate physical exam, patient counseling/education, interpretation of diagnostic results, care coordination and documentation was 35 minutes. Chandler Zuniga DO, 02/26/2024 7:53 AM * Judy Yang OTR/Jordon - 02/24/2024 3:12 PM CDT Occupational Therapy Progress Note 02/24/2024 Current [facility] DC Plan Anticipated DC Date: 02/26/24 Potential DC location: Home or Self Care Progress from OT standpoint: Interdisciplinary DC plan not yet set - OT ELOS is (*). (~ 10 to 14 days from admission) OT Discharge Recommendations Discharge Recommendations: Safety risk for discharge to home today. Barriers to discharge to home/community: Motor / physical impairments pose safety risk Supervision / Assistance Recommended for home DC: Yes Physical assistance recommended for (OT): Upper body dressing;Lower body dressing;Bathing;Meal preparation;Transportation Post Discharge Follow-up: (*) (TBD) Equipment Recommended: Shower chair with back Equipment Status: Patient/caregivers lack resources to access equipment ([employer] has been contacted for donation - they are donation shower chair with back - family is picking it up tomorrow.) Precautions/Restrictions: Activity Level: Up Ad [place] (02/19/24 1000) Spinal Precautions: TLSO - OK to don in sitting (needs to stand to fit for brace. No lifittng more than # 10) (02/19/24 1000) Diet Precautions Per AFTER SCHOOL PROGRAM TEACHER Complies w/ Precautions?: Yes Home Energy Inspector Used: No, certified bilingual staff SUBJECTIVE: Cooperative Pain Pain Rating With Activity (Numeric): (not rated) Location: back and hips Participation Significantly Limited?: No Action Taken: Nursing aware and addressing OBJECTIVE: Activities of Daily Living Grooming: Modified independence Toileting: Modified independence Toileting Comments: including wiping using toilet tongues, and managing clothing Bathing: Minimal assist (75% patient effort) Bathing Comments: using shower chair and hand held shower head Upper Body Dressing: Supervision/Stand by assist;Verbal cues;Modified independence Upper Body Dressing Comments: to doff/don shirt and TLSO Lower Body Dressing: Minimal assist (75% patient effort) Lower Body Dressing Comments: SBA to doff underwear and shorts using recher, Min A to don underwearand shorts using security system analyst Lower Body Dressing Techniques & Equipment: Patient Ed Functional Mobility Supine to/from Sit: Modified independence Sit to/from Stand : Modified independence Sit to/from Stand - Method: w/ Assistive device Bed to/from Chair: Modified independence Bed to/from Chair - Method: Standing pivot w/ AD;From standard seat height Bed to/from W/C: Modified independence Bed to/from W/C - Method: Standing pivot w/ assistive device Toilet Transfer: Modified independence Toilet Transfer- Method: Grab bar Tub Transfer: Supervision/Stand by assist Tub Transfer- Method: Grab bar(s);Shower chair Bed to Bathroom: Modified independence Bed to Bathroom- Method: Front wheeled walker Cognition / Visual Perception Mental Status: Alert;Cooperative;Follows 2 step directions Delirium Assessment: Confusion Assessment Method (CAM) Delirium prevention / intervention appears indicated? Interventions provided - engaged pt in functional tasks - promoted mobility Therapeutic Exercise/Activity/Neuromuscular Re-Education Patient / Caregiver Training: Caregiver Training Status (OT): Not yet attempted Caregiver Training Comments (OT): . Interdisciplinary Communication: RN: to change dressing over blister after shower. ASSESSMENT: Making progress towards OT goals. Modified independent for toileting and light grooming. Ongoing supervision to don/doff TLSO with open on the back ensuring pt open brace wide open when donning/doffing the brace to avoid any rubbing as pt with very sensitive skin. Ongoing work on LB dressing using AE - needs minimal assistance. Contacted [employer] by phone as we did not hear from them regarding AE. Staff on the phone was able to search and save a shower chair with back and a smallwalker for Alondra. Talked with daughter Fabiola on the phone, family will pick them up tomorrow. Discussed with daughter Fabiola to come a little early before d/c on Thursday to review shower process and re commendations. Pt reported her daughter will take 1 week off to stay with her to ensure a safe transition back home. Pt is on track to go home with family on Thursday PLAN: Continue skilled OT services to achieve the goals on the plan of care: Total treatment time: 105 minutes OT Interventions and time spent on each: Self care/Home mgmt/ADL: 105 minutes JESSICA Grover/Jordon Pager: [facility] [facility] [employer] OT Department * Allie Martin, PT - 02/24/2024 2:24 PM CDT . Care Management Follow-up Note Patient Name: Alondra Aguilar Date: 02/24/2024 Patient/Family Discharge Goals: Patient's Discharge Goal: She wants to be able to not have pain when she goes home. She wants to beable to do everything on her own. Family's Discharge Goal: Not present Discharge Destination Expected Discharge Date: 02/26/2024 Time: Potential Discharge within 24 Hours: Discharge plan: Home with family Above plan of care was created and discussed with patient and her daughter and is consistent with patient???s overall goals of care. Summary of pertinent information: Pt's daughter has been in contact with Judy LEMON, as well as [employer]. [employer] [employer] does have a shower chair, but they do not yet have a walker at this time. Fabiola expects to touch base with them again tomorrow to see if they have one for pt by then. Marija is not able to come before 1500 on Thursday, so she will come at that time and then participate in the 1530 PT session for family training. Current Discharge Placement Information: [address] [facility] [id number] Allie Martin, PT, 02/24/2024 2:24 PM * Annabel Gerber V - 02/24/2024 1:20 PM CDT CULTURAL ASSESSMENT: SUMMARY: This instructional writer saw pt at 11:08 AM on 02/24/2024. Marine Resource Economist saw pt was not in room, so instructional writer will come back to see pt if they have any questions, comments, or concerns regarding care or if they need any additional support from instructional writer. Annabel Gerber V, 02/24/2024 1:22 PM CULTURAL NAVIGATOR EXT: [id number] * Nolberto Gonzalez MDIV - 02/24/2024 12:55 PM CDT Spiritual Care Note Alondra Laina Aguilar : 1950 Sex: female LOS: 7 days Summary: Checked on pt who requested prayer. Prayer and blessing given. Plan: Chaplains are available as needed. Nolberto Gonzalez MDIV, 02/24/2024 12:55 PM Number: [phone] * Keyon Mcneil, SERVICE REPRESENTATIVE - 02/24/2024 12:52 PM CDT Problem: Decreased Ambulatory Skills Goal: Improve gait Description: Ambulate 50 meters using Front - wheeled walker or LRAD with (6) Modified [place] order to ambulate around her home by 03/04/24. Outcome: In progress Goal: Improve gait on stairs Description: Ascend/descend 6 stairs using No assistive devices with (6) Modified [place] in order to get to the basement of the home by 03/04/24. Outcome: In progress Physical Therapy Progress Note PT Discharge Recommendations Current [facility] DC Plan: Anticipated DC Date: 02/26/24 Potential DC location: Home or Self Care Who is helping at DC: Progress from PT standpoint: On track for current DC plan from PT standpoint Discharge Plan Discharge Recommendations: Safety risk for discharge home today. Post discharge follow-up: Outpatient PT recommended * Equipment Status: Equipment needs being determined PT Equipment Recommended: Front wheeled walker S: Patient is agreeable to participation in the therapy session., Patient seen in room, Patient seen in gym. , and Patient brought to gym by transport Pain Pain Rating With Activity (Numeric): (no complaints of pain) Participation Significantly Limited?: No O:Home Energy Inspector Used: Yes, [facility] project superintendent Mental Status Mental Status: Alert;Cooperative Follows Directions: Consistently follows commands Restrictions/Precautions Precautions: Thoracic Spine Precautions;Lumbar Spine Precautions (Don TLSO EOB or when HOB > 30 deg) Complies w/ Precautions?: Yes Transfer & Bed Mobility Sit to/from Stand: Modified independent Sit to/from Stand - Method: From standard seat height;w/ Assistive device (w/ FWW) Gait Distance (m): 40 m (x2) Device: Front wheeled walker Assistance: Modified independent (household exemption) (for shorter distances) Gait Quality (General): Slowed;Shuffling;Unsteady Gait Quality (Right side): Decreased push-off Stairs Number of Steps: 4 Stair Rails: Right rail;Left rail Stairs : Minimal assist Stairs Method: Bears weight through R LE;Bears weight through L LE;Descend step- to pattern;Ascend step-to pattern Assistive Devices Used: None Sitting Static Balance Level of Assistance: Independent (with feet on the floor.) Trunk Control: Decreased core Stability Sitting Eyes Open (sec): (sitting edge of chair to place on slippers and socks) Dynamic Standing Balance Lateral Stepping (m): 10 (with 2 lb cuff wt.) Backward Stepping (m): 5 Exercises Sitting LAQ Reps: 10 reps Seated Hip Flexion : 10 reps Heel/Toe Raises: 10 reps Wheelchair Pushups: 5 reps Interdisciplinary Communication PT: POC Rounds Comments (PT): On track for discharge. Just waiting to hear back from Hugo Araujo on equipment. OP PT at discharge. Fall Risk Assessment: None of the above A: The patient was agreeable to the session. The patient was able to complete stairs w/ min A, cuesand demonstration of technique and use of only one railing. Will attempt with left side rail this PM as we did right side rail this AM. Worked on left hip strength with standing abd, side stepping , seated hip strengthening with MR and active lifting off stool. Did well but shows significant weakness in both hips but more left vs. Right. She overall is mod I for all other mobility and should be ready to d/c home on Thursday with continued OP PT. Mobility Recommendations On Unit: Safe to be up in room during day (w/ FWW) Elopement Risk (PT): No KRC Specific Recommendations Caregiver Training Status (PT): Not yet attempted KRC ELOS (PT): On track for current DC plan from PT standpoint P: Patient will be seen 2x/day for 30-60 min 6 days/week in order to progress towards PT related goals. Next visit progress: ambulation w/ FWW longer distances, sit to stands, stairs w/ only one railing, lateral step ups, standing hip strengthening, stepping over items, NuStep SERVICE REPRESENTATIVE Appropriate: Yes Keyon Mcneil PTA 02/24/2024 Pager: [facility] PT Department * Chandler Zuniga, - 02/24/2024 8:48 AM CDT PM&R Progress Note Patient: Alondra Aguilar Date of Service: 02/24/2024 CC: orthopedic disorders: other orthopedic Subjective: Nursing and therapy notes reviewed for the past 24 hours. No acute events overnight. Alondra was seen accompanied by a utilization coordinator in-person. Alondra Aguilar reports she is not sleeping well. She is not sure what is contributingin total, yet does acknowledge that she has anxiety at night sometimes, and pain at night. She would like to trial a medication and is amenable to trying lose dose trazodone. She was encouraged to ask nursing for pain medication before bed as well. She reports ongoing pain in the b/l legs no worse over the past few days. She reports having a good appetite and participating well in therapies ROS: denies KERNS/CP/SOB/F/C/N/V/abd pain/dysuria. Mobility - Transfers and Bed Mobility: Supine to/from Sit: Stand by assist (02/22/24 1430) Sit to/from Stand: Modified independent (02/24/24 1500) Bed to/from W/C: Modified independent (02/23/24 0900) Gait: Distance (m): 45 m (x2) (02/24/24 1500) Device: Front wheeled walker (02/24/24 1500) Assistance: Modified independent (household exemption) (for shorter distances) (02/24/24 1500) Self Care - Grooming: Modified independence (02/24/24 1500) Toileting: Modified independence (02/24/24 1500) Bathing: Minimal assist (75% patient effort) (02/24/24 1500) Upper Body Dressing: Supervision/Stand by assist;Verbal cues;Modified independence (02/24/24 1500) Lower Body Dressing: Minimal assist (75% patient effort) (02/24/24 1500) Bowel Last Bowel Movement: 02/24/24 (02/24/24 1700) Objective: BP 116/57 (Cuff Location: Left Arm) Pulse 90 Temp 35.9 ??C (96.6 ??F) (Tympanic) Resp 20 Ht1.27 m (4' 2) Wt 49.6 kg (109 lb 5.6 oz) SpO2 98% BMI 30.75 kg/m?? General: Alert and cooperative, NAD. Eyes: Sclera non-icteric, EOMI, PERRLA HENT: Normocephalic, no rhinorrhea, MMM. Cardiac: No murmur. R/R/R. Good peripheral perfusion in b/l UE/LE. Respiratory: CTA A/P bilaterally. Breathing comfortably on room air. No wheeze/rhonchi. Gastrointestinal: Bowel sounds present, abdomen soft, nondistended, nontender. Musculoskeletal: Moving all 4/4 extremities voluntarily against gravity. TLSO fitting well Extremities: Calves soft, non-tender bilaterally. Neurological: Speech fluent/comprehensible. Skin: Exposed skin warm, dry. Psych: affect pleasant, goal oriented speech. Lab/imaging review: Results for orders placed or performed during the hospital encounter of 02/17/24 (from the past 24 hour(s)) SODIUM Result Value Ref Range Sodium 137 135 - 148 mmol/L Assessment: Alondra Aguilar is a 73 y.o. person who was admitted to [place] [facility] 02/17/2024 for orthopedicdisorders: other orthopedic Plan: -Patient is medically appropriate to continue current rehabilitation plan of care -Reviewed the patient's vital signs, nursing notes, therapy notes for the past 24 hours, and discussed care with nursing -regarding VTE proph: patient is ambulating community distances. Will DC lovenox. Encouraged ongoing ambulation -Regarding insomnia - patient with multifactorial insomnia which appears to involve anxiety and nocturnal pain. Will order trazodone 25 mg qHS. Encourage patient to use her pain medication before bedas well to help control pain while sleeping. Chandler Zuniga DO, 02/25/2024 8:49 AM Physical Medicine & Rehabilitation Total time spent on this encounter, on the date of service including pre-visit review of separatelyobtained history, [id number] interaction performing medically appropriate physical exam, patient counseling/education, interpretation of diagnostic results, care coordination and documentation was 35 minutes. * Judy Yang OTR/Jordon - 02/23/2024 2:26 PM CDT Occupational Therapy Progress Note 02/23/2024 Current [facility] DC Plan Anticipated DC Date: 02/26/24 Potential DC location: Home or Self Care Progress from OT standpoint: Interdisciplinary DC plan not yet set - OT ELMARIEL is (*). (~ 10 to 14 days from admission) OT Discharge Recommendations Discharge Recommendations: Safety risk for discharge to home today. Barriers to discharge to home/community: Motor / physical impairments pose safety risk Supervision / Assistance Recommended for home DC: Yes Physical assistance recommended for (OT): Upper body dressing;Lower body dressing;Bathing;Meal preparation;Transportation Post Discharge Follow-up: No further OT services recommended Equipment Recommended: Shower chair with back Equipment Status: Patient/caregivers lack resources to access equipment ([employer] [facility] has been contacted for donation - watiing for answer) Precautions/Restrictions: Activity Level: Up Ad [place] (02/19/24 1000) Spinal Precautions: TLSO - OK to don in sitting (needs to stand to fit for brace. No lifittng more than # 10) (02/19/24 1000) Diet Precautions Per AFTER SCHOOL PROGRAM TEACHER Complies w/ Precautions?: Yes Home Energy Inspector Used: No, certified bilingual staff SUBJECTIVE: Cooperative Pain Pain Rating With Activity (Numeric): (not rated) Location: back and hips Participation Significantly Limited?: No Action Taken: Nursing aware and addressing OBJECTIVE: Activities of Daily Living Grooming: Modified independence Toileting: Modified independence Toileting Comments: including wiping using toilet tongues, and managing clothing Bathing: Minimal assist (75% patient effort) Upper Body Dressing: Supervision/Stand by assist;Verbal cues;Modified independence Upper Body Dressing Comments: to doff/don shirt and TLSO Lower Body Dressing: Minimal assist (75% patient effort) Lower Body Dressing Comments: SBA to doff underwear and shorts using recher, Min A to don underwearand shorts using security system analyst Lower Body Dressing Techniques & Equipment: Patient Ed Functional Mobility Supine to/from Sit: Modified independence Sit to/from Stand : Modified independence Sit to/from Stand - Method: w/ Assistive device Bed to/from Chair: Modified independence Bed to/from Chair - Method: Standing pivot w/ AD;From standard seat height Bed to/from W/C: Modified independence Bed to/from W/C - Method: Standing pivot w/ assistive device Toilet Transfer: Modified independence Toilet Transfer- Method: Grab bar Tub Transfer: Supervision/Stand by assist Tub Transfer- Method: Grab bar(s);Shower chair Bed to Bathroom: Modified independence Bed to Bathroom- Method: Front wheeled walker Cognition / Visual Perception Mental Status: Alert;Cooperative;Follows 2 step directions Delirium Assessment: Confusion Assessment Method (CAM) Delirium prevention / intervention appears indicated? Interventions provided - engaged pt in functional tasks - promoted mobility Therapeutic Exercise/Activity/Neuromuscular Re-Education Educated on UE HEP using park theraband, completed 10 x 1 each of 9 exercises ( except 5 x 1 for R forward flexion as pt c/o opposite hip discomfort when doing it ) Patient / Caregiver Training: Caregiver Training Status (OT): Not yet attempted Caregiver Training Comments (OT): . Interdisciplinary Communication: RN: ok to shower, change paddin on blister areas after shower ASSESSMENT: Making good progress towards OT goals. Pt now modified independent for toileting including hygiene/wiping using toilet tongues, and managing clothing. Pt also modified independent for light grooming standing at the sink. Able to don/doff shirts and TLSO with open on the back, providing mostly supervision as pt with blisters on back, educated on open the brace quite wide before donningor doffing, to avoid rubbing on skin. RN here changing dressing on blisters after shower. Graduallyincreasing skills for LB dressing, while using AE - needs Min A. Educated on UE HEP using park theraband - will review. *Contact pt's daughter Candace on the phone to ensure they watch for [place] phone call regardingAE (walker and shower chair with back) Candace showed understanding. PLAN: Continue skilled OT services to achieve the goals on the plan of care: Total treatment time: 110 minutes OT Interventions and time spent on each: Self care/Home mgmt/ADL:85 minutes Therapeutic exercises/Motor: 25 minutes JESSICA Grover/Jordon Pager: [facility] OT Department * Priscila Holguin, RD, LD - 02/23/2024 1:29 PM CDT Problem: Skin Integrity Impairment, Risk/Actual (Adult, Obstetrics) Goal: Identify Signs and Symptoms and Related Risk Factors Outcome: In progress Nutrition Assessment Reason for Assessing Patient: Physician orders for: small frequent meals Orders Placed This Encounter Procedures Diet: 7 Easy to Chew/ Soft; Thin Liquid Nutrition Support: None Malnutrition Diagnosis: No Assessment: Observed pt eating well during lunch today. I eat until I'm full. Drinking Ensure Surgery oral supplement that daughter is bringing from home, 1 carton/day. Suspect she is able to meet her nutritional needs with current plan of care. Goal(s) Consume 50% of meals by next nutrition follow-up. Nutrition Intervention(s) Adjust snacks to BID Add daily MVI for skin repair Monitor weekly weights Recommendations to Physician As above. Estimated Nutritional Needs: Calories: [id number] Protein: 50 grams/day Fluid: 1200 mL/day Nutrition-Related History: Via project superintendent (#[id number]) pt reports good appetite and no difficulty eating. Dentures are ok but the soft food helps so would like to continue current diet. Not hungry between meals but willing to try small snacks if needed. Dtr brings Ensure Surgery supplement for pt tohave daily (dtr encourages 2x/day but once a day should be enough given her good po). Ensure surgery provides 330 cals and 18 g pro/carton. Discussed good nutrition for healing and pt agrees to try small snack but nothing more. SERVICE REPRESENTATIVE not a big eater, I eat small meals at home. Evidence of Malnutrition: Etiology: Acute illness/Injury Energy Intake: Adequate Weight loss: None Body fat: WNL Muscle mass: WNL Fluid accumulation: None Additional Nutrition Factors: s/p spinal fusion; PMH: HTN, scoliosis Skin: blister gluteal area, skin tear - butt & elbow Pertinent Medical Tests and Procedures: None GI: Last BM 02/20 IV Fluids: None Pertinent Medications: MAR reviewed Anthropometrics Ht Readings from Last 1 Encounters: 02/17/24 1.27 m (4' 2) Admission weight: 53.3 kg (117 lb 8.1 oz) Current weight: Weight: 49.6 kg (109 lb 5.6 oz) (02/21/241956) BMI: Body mass index is 30.75 kg/m??. Weight history: Wt Readings from Last 5 Encounters: 02/21/24 49.6 kg (109 lb 5.6 oz) 02/10/24 48.8 kg (107 lb 9.6 oz) 02/01/24 49.6 kg (109 lb 6.4 oz) 12/22/23 49.9 kg (110 lb) 12/09/23 49 kg (108 lb) Lab Results Component Value Date NA 134 (L) 02/23/2024 K 4.4 02/23/2024 GLU 92 02/23/2024 UN 17 02/23/2024 CR 0.42 (L) 02/23/2024 Blood Glucose Levels: n/a Nutrition Risk Level: by request only * Rebecca Rodarte, PT - 02/23/2024 12:38 PM CDT Physical Therapy Progress Note PT Discharge Recommendations Current [facility] DC Plan: Anticipated DC Date: 02/26/24 Potential DC location: Home or Self Care Who is helping at DC: Progress from PT standpoint: On track for current DC plan from PT standpoint Discharge Plan Discharge Recommendations: Safety risk for discharge home today. Post discharge follow-up: Outpatient PT recommended * Equipment Status: Equipment needs being determined PT Equipment Recommended: Front wheeled walker S: Patient is agreeable to participation in the therapy session., Patient seen in room, Patient seen in gym. , and Patient brought to gym by transport Pain Pain Rating With Activity (Numeric): (complains of some low back pain when laying down from sitting) Participation Significantly Limited?: No O:Home Energy Inspector Used: Yes, [facility] project superintendent Name or Reference Number (phone): Tristen Mental Status Mental Status: Alert;Cooperative Follows Directions: Consistently follows commands Restrictions/Precautions Precautions: Thoracic Spine Precautions;Lumbar Spine Precautions (Don TLSO EOB or when HOB > 30 deg) Complies w/ Precautions?: Yes Transfer & Bed Mobility Sit to/from Stand: Modified independent Sit to/from Stand - Method: From standard seat height;w/ Assistive device (w/ FWW) Bed to/from Chair: Modified independent Bed to/from Chair - Method: From standard seat height;Standing pivot w/ AD;Bears weight through R LE;Bears weight through L LE (w/ FWW) Bed to/from W/C: Modified independent Bed to/from W/C - Method: From standard seat height;Standing pivot w/ assistive device;Bears weightthrough R LE;Bears weight through L LE Gait Distance (m): 60 m (and 20 m x 2 in the gym) Device: Front wheeled walker Assistance: Modified independent (household exemption) (for shorter distances) Gait Quality (General): Slowed;Shuffling;Unsteady Gait Quality (Right side): Decreased push-off (improved wt. bearing tolerance with proper walker fitting.) Stairs Number of Steps: 4 (x2 w/ using different railings each time) Stair Rails: Right rail;Left rail (only one railing at a time working on both R and L d/t pt havingdifferent railings on different stairs) Stairs : Minimal assist (going up on the R needing more assistance d/t leading with L LE) Stairs Method: Ascend step-to pattern;Descend step-to pattern;Bears weight through R LE;Bears weight through L LE Assistive Devices Used: None Sitting Static Balance Level of Assistance: Independent (with feet on the floor.) Trunk Control: Decreased core Stability Dynamic Standing Balance Other: weaving around cones w/ FWW and then walking up to cones and kicking them over with the walker for support. able to kick cones over w/ R and L LE Exercises Standing Standing Hip Extension: 10 reps (assistance w/ keeping knee extension) Standing Hip ABDuction: 10 reps (at ion rail) Squats: 10 reps (at ion rail) Interdisciplinary Communication OT: discuss equipment Fall Risk Assessment: None of the above A: The patient was agreeable to the session. The patient was able to complete stairs w/ min A and use of only one railing. She has multiple sets of stairs that only have one railing and on either side. Did much better with the railing on the L going up then the right. Would recommend she has assistance when she discharges home with the stairs d/t weakness in the L LE when climbing the stairs. Pt did well with only having one railing overall and will benefit from continued practice. She overall is mod I for all other mobility and should be ready to d/c home on Thursday with continued OP PT. Mobility Recommendations On Unit: Safe to be up in room during day (w/ FWW) Elopement Risk (PT): No KRC Specific Recommendations Caregiver Training Status (PT): Not yet attempted KRC ELOS (PT): On track for current DC plan from PT standpoint P: Patient will be seen 2x/day for 30-60 min 6 days/week in order to progress towards PT related goals. Next visit progress: ambulation w/ FWW longer distances, sit to stands, stairs w/ only one railing, lateral step ups, standing hip strengthening, stepping over items, NuStep SERVICE REPRESENTATIVE Appropriate: Yes Rebecca Rodarte, PT, DPT 02/23/2024 Pager: [employer] PT Department Problem: Decreased Ambulatory Skills Goal: Improve gait Description: Ambulate 50 meters using Front - wheeled walker or LRAD with (6) Modified [place] order to ambulate around her home by 03/04/24. Outcome: In progress Goal: Improve gait on stairs Description: Ascend/descend 6 stairs using No assistive devices with (6) Modified [place] in order to get to the basement of the home by 03/04/24. Outcome: In progress * Chandler Zuniga, DO - 02/23/2024 6:59 AM CDT PM&R Progress Note Patient: Alondra Aguilar Admission Date: 02/17/2024 Date of Service: 02/23/2024 Rehab diagnosis/ chief complaint: orthopedic disorders: other orthopedic Subjective Notes and chart reviewed for the last 24 hrs. No significant events reported. Continent for bowel and bladder. Alondra Aguilar was seen with a utilization coordinator via video. She reports she had a difficult night as was having intermittent sleep. She is tired this morning as she was woken up for blood draw when she was starting to dose off. Did recommend for her to take naps during the day today. She is also concerned about her anemia which she was informed remains stable and she denies any other associated symptoms of dizziness or lightheadedness. We dicussed about her sodium levels which are slowly improving, but needs close monitoring. She is also concerned about her blisters, but notesher TLSO is fitting better and is not causing abrasions. ROS:denies KERNS/CP/Abd pain/flu symptoms. Mobility - Transfers and Bed Mobility: Supine to/from Sit: Stand by assist (02/22/24 1430) Sit to/from Stand: Modified independent (02/22/24 1430) Bed to/from W/C: Minimal assist (02/21/24 1530) Gait: Distance (m): 60 m (and then 20 m) (02/22/24 1430) Device: Front wheeled walker (02/22/24 1430) Assistance: Modified independent (household exemption) (for shorter distances) (02/22/24 1430) Self Care - Grooming: Supervision/Stand by assist (02/20/24 1200) Toileting: Modified independence (02/22/24 1200) Bathing: Minimal assist (75% patient effort) (02/22/24 1200) Upper Body Dressing: Supervision/Stand by assist;Verbal cues (02/22/24 1200) Lower Body Dressing: Minimal assist (75% patient effort) (02/22/24 1200) Bowel Last Bowel Movement: 02/21/24 (per pt report) (02/22/24 1902) Objective BP 117/48 (Cuff Location: Right Arm) Pulse 90 Temp 37.4 ??C (99.3 ??F) (Tympanic) Resp 18 Ht 1.27 m (4' 2) Wt 49.6 kg (109 lb 5.6 oz) SpO2 91% BMI 30.75 kg/m?? General: Alert and cooperative, NAD. Eyes: Sclera non-icteric, EOMI, PERRLA HENT: Normocephalic, no rhinorrhea, MMM. Cardiac: No murmur. R/R/R. No edema noted bilateral LEs. Good peripheral perfusion in b/l UE/LE. Respiratory: CTA A/P bilaterally. Breathing comfortably on room air. No wheeze/rhonchi. Gastrointestinal: Bowel sounds present, abdomen soft, nondistended, nontender. Musculoskeletal: Moving all 4/4 extremities voluntarily against gravity. 5/5 strength throughout b/l UE. Freely moving b/l LE against gravity without tremor. Extremities: Calves soft, non-tender bilaterally. Neurological: Speech fluent/comprehensible. Strength as above in MSK. Skin: Exposed skin warm, dry. Psych: affect pleasant, goal oriented speech. Relevant Imaging/Studies: Results for orders placed or performed during the hospital encounter of 02/17/24 (from the past 24 hour(s)) CBC WITH PLATELET Result Value Ref Range WBC 7.67 4.00 - 10.00 k/cmm RBC 3.20 (L) 3.90 - 5.20 m/cmm Hgb 9.4 (L) 11.5 - 15.7 g/dL Hematocrit 30.0 (L) 34.0 - 45.0 % MCV 93.8 80.0 - 100.0 fL MCH 29.4 25.0 - 32.0 pg MCHC 31.3 31.0 - 36.0 g/dL RDW 17.1 (H) 11.5 - 14.5 % Plt 518 (H) 150 - 400 k/cmm MPV 8.6 6.5 - 12.5 fL NRBC 0.4 (H) 0.0 - 0.0 /100WBC PANEL BASIC METABOLIC (BMP) Result Value Ref Range Sodium 132 (L) 135 - 148 mmol/L Potassium 4.2 3.5 - 5.3 mmol/L Chloride 98 92 - 108 mmol/L CO2 26 22 - 30 mmol/L AnGap 8 8 - 16 mmol/L Glucose 99 70 - 100 mg/dL BUN 21 8 - 23 mg/dL Creatinine 0.43 (L) 0.50 - 1.00 mg/dL Calcium 8.7 (L) 8.8 - 10.2 mg/dL eGFR (2020 CKD-EPI) 103 >=60 ml/min/1.73m2 SODIUM,URINE-[employer] Result Value Ref Range Sodium Urine <20 (L) 40 - 200 mmol/L OSMOLALITY,URINE-[employer] Result Value Ref Range Urine Osmo 354 50 - 800 mOsm/Kg PANEL BASIC METABOLIC (BMP) Result Value Ref Range Sodium 134 (L) 135 - 148 mmol/L Potassium 4.4 3.5 - 5.3 mmol/L Chloride 99 92 - 108 mmol/L CO2 29 22 - 30 mmol/L AnGap 6 (L) 8 - 16 mmol/L Glucose 92 70 - 100 mg/dL BUN 17 8 - 23 mg/dL Creatinine 0.42 (L) 0.50 - 1.00 mg/dL Calcium 8.6 (L) 8.8 - 10.2 mg/dL eGFR (2020 CKD-EPI) 103 >=60 ml/min/1.73m2 Impression Alondra Aguilar is a 73 y.o. female with chronic medical conditions including hypertension, chronic low back pain, degenerative scoliosis, admitted to [facility] February 10, 2024 for elective spinal fusion T11-S2 and left L5-S1 PLIF. Had two Hemovac drains in place postoperatively, both of which have been removed 02/14. Functionally remains below baseline with regard to mobility and self-care, requiring rehabilitation. Alondra Aguilar admitted to [facility] 02/17/2024 for acute inpatient rehabilitation related to orthopedic disorders: other orthopedic. Precautions: Fall Restrictions: wear TLSO when HOB >30 degrees and when on EOB Plan #Nutrition: - cont current diet of regular with thins. - 02/21 difficulty in chewing food and swallowing due to dentures. Will start an east to chew diet 7to help with this. - 02/22 Quality Eng following for smaller frequent meals. #Bladder: continent, PVR/IC PRN per protocol. Patient has been using a diaper in bed during the nighttime. - PVR 0 upon admssion #Bowels: cont bowel program of the following medications Patient on opioid management for pain will monitor bowel movements can be high risk for constipation. -MiraLAX 17 g p.o. daily PRN -Senna 8.6 g p.o. twice daily PRN - 02/18 after multiple BM's in 24 hours. Bowel meds were changed to PRN. #Skin: No pressure injuries noted upon admission. Continue to assess with Nima score and daily provider/nursing discussion - Midline surgical incision cdi and SHRUTHI, sutures removed on 02/19 - Has abrasions/blister on skin of gluteal region due to TLSO fitting. - 02/17 F/u on [facility]astic[facility] for brace refitting - 02/22 continue to monitor skin at blister site. Wound nurse followed and recs in note on 02/21. #Pain management: Location of pain hips and slower middle back region. - 02/21 changed Tylenol 650 mg Q4h PRN to 975 TID to maximize non opoid pain medication. - Oxycodone 5 to 10 mg every 4 hours as needed - Continuing to intermittently use oxycodone. Will continue to encourage weaning down. - Continue to wean opioids as able. Continue to assess risk of cognitive side effects #Sleep/agitation: -sleeping well 02/19/2024 #Self management of medical condition: nursing to continue pt education as appropriate #Cognition/adjustment to disability: pt to see clinical psych as able #Safety: Continue Burton safety protocol #Community re-entry: Patient to see Burial Vault Deliverer And Installer during admission #Family training/education: Family will be educated as needed #D/C planning: Ongoing, Burial Vault Deliverer And Installer consulted for assistance #Patient goals/preferences: Improve on strength and balance. Medical Co-morbidities that necessitate inpatient hospitalization and frequent medical supervision: # Chronic low back pain with L5 radiculopathy s/p T11-S2 fusion and left L5-S1 PLIF # Scoliosis of lumbar spine -PT/OT for comprehensive rehabilitation -Psychology for adjustment support -Social work for community reentry -chest pain coordinator for assistance with discharge planning -Pain management as above -Flexeril 10 mg for muscle spasms -pain management as above # Hypertension: Vital signs twice daily for blood pressure monitoring. - Has SERVICE REPRESENTATIVE Amlodipine 5 mg daily not taking during admission due to low- normotensive BP's. Will assess and reintroduce antihypertensive if BP's go up. - BP reviewed for past 24 hours, SBP WNL. Continue to assess, no indication to restart SERVICE REPRESENTATIVE meds. # Anemia Possibly secondary to blood loss during surgery - Hgb 8.3 on 02/14. - CBC 02/19/2024 showed grossly unchanged Hgb. - 02/21 increase in hgb to 9.3, will continue to assess qMonday CBC # Mild Hyponatremia -BMP 02/19/2024 reviewed showing Na 133. Did have back surgery but is not a brain injury and thus inherently less likely to be an SIADH picture. May be nutritional yet etiology is unclear. No symptomsof fatigue, somnolence, or decrease in strength. - 02/21 reassessment with Na 132. Will repeat AM lab with BMP. Requires more workup as to cause (hasno meds to cause loss, no edema on exam and has moist mucous membranes and remains asxs). Will alsoadd urine studies of Urine na and osmolality. If Na is low will increase Na intake, if normal and osmolality wnl will consult medicine for assessment. - 02/22 Na up to 134, with low Urine Na and wnl Osmolality, will encourage oral fluid intake, and reassess on 02/24. #Risk for anemia/infection/electrolyte abnormalities: -Weekly BMP/CBC while at [place] #VTE prophylaxis: Lovenox 30 mg daily subcutaneously until ambulating community distances. #CODE STATUS: Full Code per discussion with patient. #ELOPEMENT RISK: Not necessary Follow-up Appointment Recommendations after discharge: -PCP within 7 days of [place] discharge -PM&R within 2-4 weeks from [place] discharge if going home, or 4-6 weeks if going to a facility - Social work referral for patients going home - refer to Marina Onstad to eval and assist - NSGY 02/23 follow-up and 03/23 outpatient clinic appointment Decision maker: Self Anticipated Discharge Date / ELOS: 02/26/24 Expected Discharge Disposition: Home or Self Care - Pt is medically appropriate to continue the comprehensive inpatient rehab program as of today 02/23/2024. Patient was seen and discussed with Dr. Zuniga who agreed with the assessment and plan. Cheli Pisano MD Resident Physician PGY-3 Physical Medicine and Rehabilitation [facility] NOTE I saw and evaluated the patient on the date of the resident's note. I discussed with the resident and agree with the resident???s findings and plan documented in the resident???s note from above. Anyrevisions by me are documented. Total time spent on this encounter, on the date of service including pre-visit review of separatelyobtained history, xaci-ei-roog interaction performing medically appropriate physical exam, patient counseling/education, interpretation of diagnostic results, care coordination and documentation was 35 minutes. Chandler Zuniga DO, 02/24/2024 7:40 AM * Priscila Holguin RD, LD - 02/22/2024 3:07 PM CDT Nutrition note (brief): Pt unavailable x 2. Will f/u for food pref's for snacks between meals but did leave write in list in the room. Will order snacks for pt to try and adjust after the visit. Priscila Holguin RD, YAMILA, 02/22/2024 3:08 PM * Rebecca Allred, OTR/L - 02/22/2024 12:40 PM CDT Problem: Loss of Converse With ADLs, Risk for Goal: Will complete upper body dressing Description: Patient will complete upper body dressing with Modified Converse (6) including donning/doffing open on the back TLSO Outcome: In progress Goal: Will complete lower body dressing Description: Patient will complete lower body dressing with Modified Converse (6) using AE PRN Outcome: In progress Goal: Will toilet self Description: Patient will toilet self with Modified Converse (6). Outcome: In progress Occupational Therapy Progress Note 02/22/2024 Current [facility] DC Plan Anticipated DC Date: 02/26/24 Potential DC location: Home or Self Care Progress from OT standpoint: Interdisciplinary DC plan not yet set - OT ELOS is (*). (~ 10 to 14 days from admission) OT Discharge Recommendations Discharge Recommendations: Safety risk for discharge to home today. Barriers to discharge to home/community: Motor / physical impairments pose safety risk Supervision / Assistance Recommended for home DC: Yes Physical assistance recommended for (OT): Upper body dressing;Lower body dressing;Toileting;Bathing;Meal preparation;Transportation Post Discharge Follow-up: (*) (TBD) Equipment Recommended: Shower chair with back Equipment Status: (Has been ordered by OT. Addendum: Pt is [place], so shower chair with back will not be covered. PT will be contacting [employer] for equipment, and will ask for the shower chair with back donation as well. Will continue to follow) Precautions/Restrictions: Activity Level: Up Ad [place] (02/19/24 1000) Spinal Precautions: TLSO - OK to don in sitting (needs to stand to fit for brace. No lifittng more than # 10) (02/19/24 1000) Diet Precautions Per AFTER SCHOOL PROGRAM TEACHER Home Energy Inspector Used: Yes, agency or phone project superintendent SUBJECTIVE: well someone brought me a shower chair in a box this morning, but I don't know where it is now... no, no one came to pick it up (discussed how [employer] does not drop off equipment. Possible room drop off by mistake? There was no AE in pt's room) Pain Pain Rating With Activity (Numeric): (not rated) Location: back and hips Participation Significantly Limited?: No Action Taken: Nursing aware and addressing (pt reported recently receiving pain medications) OBJECTIVE: Activities of Daily Living Toileting: Modified independence Toileting Comments: pt clearned in her room for independence. Pt was able to manage clothing and sit on toilet. Marine Resource Economist did not observe the completed task due to time constaints. Pt voicing she will call for help if needed Bathing: Minimal assist (75% patient effort) Bathing Comments: Assisted to wash lower legs/feet Upper Body Dressing: Supervision/Stand by assist;Verbal cues Upper Body Dressing Comments: doff TLSO and shirt. Don new shirt and TLSO sitting on shower chair Lower Body Dressing: Minimal assist (75% patient effort) Lower Body Dressing Comments: Min A to doff B socks in shower area due to time constaints. pt able to stand and pull down pants to doff. Able to stand and pull up new underwear and shorts Functional Mobility Sit to/from Stand : Modified independence Sit to/from Stand - Method: w/ Assistive device Toilet Transfer: Supervision/Stand by assist Toilet Transfer- Method: Grab bar Bed to Bathroom: Modified independence Bed to Bathroom- Method: Front wheeled walker Functional Mobility in Room- Task Done: pt ambulates from room to dynavision room and back Functional Mobility in Room: Supervision/Stand by assist Functional Mobility in Room- Method: Front wheeled walker Cognition / Visual Perception Mental Status: Alert;Cooperative;Follows 2 step directions Delirium Assessment: Confusion Assessment Method (CAM) Delirium prevention / intervention appears indicated? No. Therapeutic Exercise/Activity/Neuromuscular Re-Education Dynavision Device to evaluate and train for oculomotor skills, compensation for visual deficits, and speed of processing. Also trains for standing tolerance/endurance and ROM of BUE Mode: 1 minute Endurance Score: 28 Average reaction time: 2.14 seconds Reaction times L R Top 2.70 1.54 Bottom 1.89 2.37 Pt standing with FWW entire 1 minutes without rest break. SBA. Pt utilizing BUE during task- able to cross midline with BUE Dynavision Device to evaluate and train for oculomotor skills, compensation for visual deficits, and speed of processing. Also trains for standing tolerance/endurance and ROM of BUE Mode: 2 minute Endurance Score: 60 Average reaction time: 2.00 seconds Reaction times L R Top 1.84 2.41 Bottom 1.67 1.94 Pt standing with FWW entire 2 minutes without rest break. SBA. Pt utilizing BUE during task- able to cross midline with BUE *BUE Yellow Therapy Band exercises standing with FWW, 10 reps Horizontal add/abd Elbow flex/ext (biceps, triceps) Shoulder flex/ext Shoulder internal/external rotation Punch forward Patient / Caregiver Training: *discussed [employer] was contacted RE AE needs Interdisciplinary Communication: ASSESSMENT: Patient was alert and agreeable to OT sessions. Pt appears mildly forgetful RE information from PT RE DME that was placed with [employer] agency. OT reiterated that the agency has been contacted but her family will have to meat pickler items. Pt reports a shower chair was dropped off but that it is now not in the room. Pt was alert and agreeable to OT sessions and demonstrates overall increased endurance, activity tolerance and strength. Continue to recommend home with assistance for bathing and physically demanding IADLs. PLAN: Continue skilled OT services to achieve the goals on the plan of care: Total treatment time: 92 minutes OT Interventions and time spent on each: Self care/Home mgmt/ADL: 35 minutes Therapeutic exercises/Motor: 28 minutes Functional activity: 29 minutes OLIVIA Doran Pager: Tiffany OT Department Rebecca Allred OTR/L, 02/22/2024 3:44 PM * Rebecca Rodarte, PT - 02/22/2024 12:26 PM CDT Physical Therapy Progress Note PT Discharge Recommendations Current [facility] DC Plan: Anticipated DC Date: 02/26/24 Potential DC location: Home or Self Care Who is helping at DC: Progress from PT standpoint: On track for current DC plan from PT standpoint Discharge Plan Discharge Recommendations: Safety risk for discharge home today. Post discharge follow-up: Outpatient PT recommended * Equipment Status: Equipment needs being determined PT Equipment Recommended: Front wheeled walker S: Patient is agreeable to participation in the therapy session., Patient seen in room, Patient seen in gym. , and Patient brought to gym by transport Pain Pain Rating With Activity (Numeric): (complains of some hip pain/soreness from this weekend) Participation Significantly Limited?: No O:Home Energy Inspector Used: Yes, agency or phone project superintendent Name or Reference Number (phone): Aaliyah Mental Status Mental Status: Alert;Cooperative Follows Directions: Consistently follows commands Restrictions/Precautions Precautions: Thoracic Spine Precautions;Lumbar Spine Precautions (Don TLSO EOB or when HOB > 30 deg) Complies w/ Precautions?: Yes Transfer & Bed Mobility Sit to/from Stand: Modified independent Sit to/from Stand - Method: From standard seat height;w/ Assistive device (w/ FWW) Bed to/from Chair: Modified independent Bed to/from Chair - Method: From standard seat height;Standing pivot w/ AD;Bears weight through R LE;Bears weight through L LE (w/ FWW) Gait Distance (m): 30 m (and then 20 m) Device: Front wheeled walker Assistance: Modified independent (household exemption) (for shorter distances) Gait Quality (General): Slowed;Shuffling;Unsteady Gait Quality (Right side): Decreased push-off (improved wt. bearing tolerance with proper walker fitting.) Stairs Number of Steps: 8 Stair Rails: Right rail;Left rail Stairs : Minimal assist Stairs Method: Ascend step-to pattern;Descend step-to pattern;Bears weight through L LE;Bears weight through R LE (up w/ the R, down w/ the L) Assistive Devices Used: None Sitting Static Balance Level of Assistance: Independent (with feet on the floor.) Trunk Control: Decreased core Stability Interdisciplinary Communication RN: cleared in the room w/ FWW OT: cleared in the room w/ FWW Fall Risk Assessment: Patient is deemed high fall risk per protocol A: The patient was agreeable to the session. The patient continues to do well with progressing her mobility. She does have L knee instability resulting in more UE use on the FWW. She was able to ambulate around the gym w/ mod I and demonstrate ability to perform transfers w/ the FWW. Pt was clearedin her room w/ the FWW. Still requires assistance when ambulating the hallway at this time. She wasable to do the stairs w/ min A and use of B railings. Will need to practice stairs w/ single railing as this is what she has at home. Mobility Recommendations On Unit: Safe to be up in room during day (w/ FWW) Elopement Risk (PT): No [facility] Specific Recommendations Caregiver Training Status (PT): Not yet attempted K[facility] ELOS (PT): On track for current DC plan from PT standpoint P: Patient will be seen 2x/day for 30-60 min 6 days/week in order to progress towards PT related goals. Next visit progress: ambulate w/ FWW longer distances, NuStep, supine LE strengthening exercises especially the hips, standing tolerance, standing dynamic balance at ion rail SERVICE REPRESENTATIVE Appropriate: Yes Rebecca Rodarte PT, DPT 02/22/2024 Pager: [facility] PT Department * Chandler Zuniga, - 02/22/2024 7:20 AM CDT PM&R Progress Note Patient: Alondra Aguilar Admission Date: 02/17/2024 Date of Service: 02/22/2024 Rehab diagnosis/ chief complaint: orthopedic disorders: other orthopedic Subjective Notes and chart reviewed for the last 24 hrs. No significant events reported. Continent for bowel and bladder. Alondra Aguilar was seen with a utilization coordinator via video. She reports she has been having bilateral hip pain following therapies which has required her to ask for pain medication. She continues to have no symptoms of dizziness and is tolerating therapies well. She is also sleepingwell. We discussed her brace which is now fitting more snugly and is comfortable. She is concerned about her blisters which have opened and I reiterated teams plan to continue to monitor skin for anyfurther breakdown. Patient is noted to eat minimal breakfast and she mentions she eats slowly as her dentures make it difficult ans she has difficulty swallowing, this is a chronic problem to her. Discussed with her about setting up easier to chew meals and making them more frequent to help keep her nutrition up. ROS:denies KERNS/CP/Abd pain/flu symptoms. Mobility - Transfers and Bed Mobility: Supine to/from Sit: Stand by assist (02/21/24 1100) Sit to/from Stand: Stand by assist (02/21/24 1530) Bed to/from W/C: Minimal assist (02/21/24 1530) Gait: Distance (m): 75 m (x 1 plus 40 x 3) (02/21/24 1530) Device: Front wheeled walker (02/21/24 1530) Assistance: Minimal assist (close to SBA) (02/21/24 1530) Self Care - Grooming: Supervision/Stand by assist (02/20/24 1200) Toileting: Supervision/Stand by assist;Minimal assist (75% patient effort) (02/20/24 1200) Bathing: Minimal assist (75% patient effort) (02/19/24 1000) Upper Body Dressing: Supervision/Stand by assist;Verbal cues (02/19/24 1000) Lower Body Dressing: Supervision/Stand by assist (02/20/24 1200) Bowel Last Bowel Movement: 02/20/24 (02/21/24 2100) Objective BP 101/46 (Cuff Location: Right Arm) Pulse 95 Temp 37.6 ??C (99.7 ??F) (Tympanic) Resp 16 Ht 1.27 m (4' 2) Wt 49.6 kg (109 lb 5.6 oz) SpO2 94% BMI 30.75 kg/m?? General: Alert and cooperative, NAD. Eyes: Sclera non-icteric, EOMI, PERRLA HENT: Normocephalic, no rhinorrhea, MMM. Cardiac: No murmur. R/R/R. No edema noted bilateral LEs. Good peripheral perfusion in b/l UE/LE. Respiratory: CTA A/P bilaterally. Breathing comfortably on room air. No wheeze/rhonchi. Gastrointestinal: Bowel sounds present, abdomen soft, nondistended, nontender. Musculoskeletal: Moving all 4/4 extremities voluntarily against gravity. 5/5 strength throughout b/l UE. Freely moving b/l LE against gravity without tremor. Extremities: Calves soft, non-tender bilaterally. Neurological: Speech fluent/comprehensible. Strength as above in MSK. Skin: Exposed skin warm, dry. Psych: affect pleasant, goal oriented speech. Relevant Imaging/Studies: No results found for this visit on 02/17/24 (from the past 24 hour(s)). Impression Alondra Aguilar is a 73 y.o. female with chronic medical conditions including hypertension, chronic low back pain, degenerative scoliosis, admitted to [facility] February 10, 2024 for elective spinal fusion T11-S2 and left L5-S1 PLIF. Had two Hemovac drains in place postoperatively, both of which have been removed 02/14. Functionally remains below baseline with regard to mobility and self-care, requiring rehabilitation. Alondra Aguilar admitted to [facility] 02/17/2024 for acute inpatient rehabilitation related to orthopedic disorders: other orthopedic. Precautions: Fall Restrictions: wear TLSO when HOB >30 degrees and when on EOB Plan #Nutrition: - cont current diet of regular with thins. - 02/21 difficulty in chewing food and swallowing due to dentures. Will start an east to chew diet 7to help with this. Will also discuss with aluminum shingle roofer about option for smaller frequent meals. #Bladder: continent, PVR/IC PRN per protocol. Patient has been using a diaper in bed during the nighttime. - PVR 0 upon admssion #Bowels: cont bowel program of the following medications Patient on opioid management for pain will monitor bowel movements can be high risk for constipation. -MiraLAX 17 g p.o. daily PRN -Senna 8.6 g p.o. twice daily PRN - 02/18 after multiple BM's in 24 hours. Bowel meds were changed to PRN. #Skin: No pressure injuries noted upon admission. Continue to assess with Nima score and daily provider/nursing discussion - Midline surgical incision cdi and SHRUTHI, sutures removed on 02/19 - Has abrasions/blister on skin of gluteal region due to TLSO fitting. - 02/17 F/u on [facility] for brace refitting #Pain management: Location of pain hips and slower middle back region. - 02/21 changed Tylenol 650 mg Q4h PRN to 975 TID to maximize non opoid pain medication. - Oxycodone 5 to 10 mg every 4 hours as needed - Continuing to intermittently use oxycodone. Will continue to encourage weaning down during admission. - Continue to wean opioids as able. Continue to assess risk of cognitive side effects #Sleep/agitation: -sleeping well 02/19/2024 #Self management of medical condition: nursing to continue pt education as appropriate #Cognition/adjustment to disability: pt to see clinical psych as able #Safety: Continue [place] safety protocol #Community re-entry: Patient to see Burial Vault Deliverer And Installer during admission #Family training/education: Family will be educated as needed #D/C planning: Ongoing, Burial Vault Deliverer And Installer consulted for assistance #Patient goals/preferences: Improve on strength and balance. Medical Co-morbidities that necessitate inpatient hospitalization and frequent medical supervision: # Chronic low back pain with L5 radiculopathy s/p T11-S2 fusion and left L5-S1 PLIF # Scoliosis of lumbar spine -PT/OT for comprehensive rehabilitation -Psychology for adjustment support -Social work for community reentry -chest pain coordinator for assistance with discharge planning -Pain management as above -Flexeril 10 mg for muscle spasms -pain management as above # Hypertension: Vital signs twice daily for blood pressure monitoring. - Has SERVICE REPRESENTATIVE Amlodipine 5 mg daily not taking during admission due to low- normotensive BP's. Will assess and reintroduce antihypertensive if BP's go up. - BP reviewed for past 24 hours, SBP WNL. Continue to assess, no indication to restart SERVICE REPRESENTATIVE meds. # Anemia Possibly secondary to blood loss during surgery - Hgb 8.3 on 02/14. - CBC 02/19/2024 showed grossly unchanged Hgb. - 02/21 increase in hgb to 9.3, will continue to assess qMonday CBC # Mild Hyponatremia -BMP 02/19/2024 reviewed showing Na 133. Did have back surgery but is not a brain injury and thus inherently less likely to be an SIADH picture. May be nutritional yet etiology is unclear. No symptomsof fatigue, somnolence, or decrease in strength. - 02/21 reassessment with Na 132. Will repeat AM lab with BMP. Requires more workup as to cause (hasno meds to cause loss, no edema on exam and has moist mucous membranes and remains asxs). Will alsoadd urine studies of Urine na and osmolality. If Na is low will increase Na intake, if normal and osmolality wnl will consult medicine for assessment. #Risk for anemia/infection/electrolyte abnormalities: -Weekly BMP/CBC while at [place] #VTE prophylaxis: Lovenox 30 mg daily subcutaneously until ambulating community distances. #CODE STATUS: Full Code per discussion with patient. #ELOPEMENT RISK: Not necessary Follow-up Appointment Recommendations after discharge: -PCP within 7 days of [place] discharge -PM&R within 2-4 weeks from [place] discharge if going home, or 4-6 weeks if going to a facility - Social work referral for patients going home - refer to Marina Onstad to eval and assist - NSGY 02/23 follow-up and 03/23 outpatient clinic appointment Decision maker: Self Anticipated Discharge Date / ELOS: 02/26/24 Expected Discharge Disposition: Home or Self Care - Pt is medically appropriate to continue the comprehensive inpatient rehab program as of today 02/22/2024. Patient was seen and discussed with Dr. Zuniga who agreed with the assessment and plan. Cheli Pisano MD Resident Physician PGY-3 Physical Medicine and Rehabilitation [facility] NOTE I saw and evaluated the patient on the date of the resident's note. I discussed with the resident and agree with the resident???s findings and plan documented in the resident???s note from above. Anyrevisions by me are documented. Total time spent on this encounter, on the date of service including pre-visit review of separatelyobtained history, [id number] interaction performing medically appropriate physical exam, patient counseling/education, interpretation of diagnostic results, care coordination and documentation was 50 minutes. Chandler Zuniga DO, 02/23/2024 7:10 AM * Keyon cMneil, SERVICE REPRESENTATIVE - 02/21/2024 12:37 PM CDT Problem: Decreased Transfer Skills Goal: Patient will transfer supine to/from sit Description: Patient will transfer supine to/from sit with (6) Modified [place] in order to get out of a flat bed at home by 03/04/24. Outcome: In progress Goal: Patient will transfer sit to/from stand Description: Patient will transfer sit to/from stand with (6) Modified [place] and use of FWW or LRAD in order to prepare for ambulation by 03/04/24. Outcome: In progress Problem: Decreased Ambulatory Skills Goal: Improve gait Description: Ambulate 50 meters using Front - wheeled walker or LRAD with (6) Modified [place] order to ambulate around her home by 03/04/24. Outcome: In progress Goal: Improve gait on stairs Description: Ascend/descend 6 stairs using No assistive devices with (6) Modified [place] in order to get to the basement of the home by 03/04/24. Outcome: In progress Physical Therapy Progress Note PT Discharge Recommendations Current [facility] DC Plan: Anticipated DC Date: 02/26/24 Potential DC location: Home or Self Care Who is helping at DC: Progress from PT standpoint: Interdisciplinary DC plan not yet set - PT ELOS is * (7 days from admission) Discharge Plan Discharge Recommendations: Safety risk for discharge home today. Post discharge follow-up: Outpatient PT recommended * Equipment Status: Equipment needs being determined PT Equipment Recommended: Front wheeled walker S: Patient is agreeable to participation in the therapy session., Patient seen in room, Patient seen in gym. , and Patient brought to gym by transport Pain Pain Rating With Activity (Numeric): (some minor discomfort in bilat knees) Participation Significantly Limited?: No O:Home Energy Inspector Used: Yes, [facility] project superintendent Mental Status Mental Status: Alert;Cooperative Follows Directions: Consistently follows commands Restrictions/Precautions Precautions: Thoracic Spine Precautions;Lumbar Spine Precautions (Don TLSO EOB or when HOB > 30 deg) Complies w/ Precautions?: Yes Transfer & Bed Mobility Roll Left: Stand by assist Roll Right: Stand by assist Supine to/from Sit: Stand by assist Sit to/from Stand: Stand by assist Sit to/from Stand - Method: From standard seat height;w/ Assistive device (w/ FWW) Bed to/from Chair: Minimal assist Bed to/from Chair - Method: From standard seat height;Standing pivot w/ AD;Bears weight through R LE;Bears weight through L LE (w/ FWW) Bed to/from W/C: Minimal assist Bed to/from W/C - Method: From standard seat height;Standing pivot w/ assistive device;Bears weightthrough R LE;Bears weight through L LE (w/ FWW) Car Transfer: Minimal assist Car Transfer - Method: Standing pivot w/ assistive device;Bears weight through L LE;Bears weight through R LE Gait Distance (m): 25 m (x 3) Device: Front wheeled walker Assistance: Minimal assist (close to SBA) Gait Quality (General): Slowed;Shuffling;Unsteady Gait Quality (Right side): Decreased push-off (improved wt. bearing tolerance with proper walker fitting.) Sitting Static Balance Level of Assistance: Independent (with feet on the floor.) Trunk Control: Decreased core Stability Sitting Eyes Open (sec): 300 sec (plus) Sitting Dynamic Balance Functional Reachin Exercises Supine Quad Sets: 10 reps Ham Sets: 10 reps Gluteal Sets: 10 reps ABDuctor Sets: 10 reps ADDuctor Sets: 10 reps Heelslides : 10 reps Straight Leg Raises: 5 reps Active Abduction: 10 reps Ankle Pumps : 20 reps Bridging : 6 reps Exercises Standing Standing Hip ABDuction: 10 reps Fall Risk Assessment: Patient is deemed high fall risk per protocol A: patient seen initially in her room. Up to chair upon arrival with newly adjusted TLSO in which she states is fitting and feeling better. To PT via escorted W/C. In the gym worked on transfers fromheight with getting pt to scoot forward and be able to lean enough to get her feet to the floor, gait with RW to 25 meters plus with good tolerance today but continues with some fatigue and C/O left hip weakness. Bed mobility with introduction of leg intake clerk. Pt able to use it well to assist with getting bilat L/E's into bed. Finished session with supine ex with focus on left hip strength. Overallmaking progress with pt not being ready yet for room (I). Escorted back to unit via W/C. Mobility Recommendations On Unit: Requires one person assist (w/ FWW) Elopement Risk (PT): No [facility] Specific Recommendations Caregiver Training Status (PT): Not yet attempted KRC ELOS (PT): Interdisciplinary DC plan not yet set - PT ELOS is * (7 days from admission) P: Patient will be seen 2x/day for 30-60 min 6 days/week in order to progress towards PT related goals. Next visit progress: ambulation longer distances. Sit to stands, pivot transfers, nustep, steps, step ups, supine LE strengthening exercises SERVICE REPRESENTATIVE Appropriate: Yes Keyon Mcneil PTA 02/21/2024 Pager: [facility] PT Department * Gianfranco Song CO - 02/20/2024 3:18 PM CDT Patient was seen in B3 332 to evaluate the fit of her tlso and make adjustments as needed. It appears like the back bottom of the tlso pinched her skin when sitting. We shortened this up and flared the edge today. We also reduced the height of the front and enlarged the opening in the back. Her daughter was present and we discussed making sure she has a t shirt interface between the brace and herskin. Please call with any further concerns. [facility] * Keyon Mcneil PTA - 02/20/2024 2:01 PM CDT Did not see pt this PM as her TLSO was out being adjusted due to possibly causing some blisters. Ptdeclined just ex's. Pt is scheduled for F/U tomorrow. Keyon Mcneil SERVICE REPRESENTATIVE. * Abby Vasquez OTR/Jordon - 02/20/2024 12:50 PM CDT Occupational Therapy Progress Note 02/20/2024 Current [facility] DC Plan Anticipated DC Date: 02/26/24 Potential DC location: Home or Self Care Progress from OT standpoint: Interdisciplinary DC plan not yet set - OT ELOS is (*). (~ 10 to 14 days from admission) OT Discharge Recommendations Discharge Recommendations: Safety risk for discharge to home today. Barriers to discharge to home/community: Motor / physical impairments pose safety risk Supervision / Assistance Recommended for home DC: Yes Physical assistance recommended for (OT): Upper body dressing;Lower body dressing;Toileting;Bathing;Meal preparation;Transportation Post Discharge Follow-up: (*) (TBD) Equipment Recommended: Shower chair with back Equipment Status: (Has been ordered by OT. Addendum: Pt is [place], so shower chair with back will not be covered. PT will be contacting [facility] for equipment, and will ask for the shower chair with back donation as well. Will continue to follow) Precautions/Restrictions: Activity Level: Up Ad [place] (02/19/24 1000) Spinal Precautions: TLSO - OK to don in sitting (needs to stand to fit for brace. No lifittng more than # 10) (02/19/24 1000) Diet Precautions Per AFTER SCHOOL PROGRAM TEACHER Home Energy Inspector Used: Yes, agency or phone project superintendent SUBJECTIVE: I can't wipe myself with that, the toilet paper falls out. Provided pt with additional wiping aid and increased independence with use of toilet tongs Pain Pain Rating With Activity (Numeric): no overt signs of pain OBJECTIVE: Activities of Daily Living Grooming: Supervision/Stand by assist Grooming Comments: standing at sink Toileting: Supervision/Stand by assist;Minimal assist (75% patient effort) Toileting Comments: pt with increased ability to perform hygiene with use of toilet tongs- min A initially but with education/practice compeltes hygiene with SBA Lower Body Dressing: Supervision/Stand by assist Lower Body Dressing Comments: to don/doff socks and shoes with AE Functional Mobility Sit to/from Stand : Supervision/Stand by assist Sit to/from Stand - Method: w/ Assistive device Toilet Transfer: Supervision/Stand by assist Toilet Transfer- Method: Grab bar Bed to Bathroom: Supervision/Stand by assist Bed to Bathroom- Method: Front wheeled walker Cognition / Visual Perception Mental Status: Alert;Cooperative;Follows 2 step directions Delirium Assessment: Confusion Assessment Method (CAM) Acute onset OR fluctuating course: No Inattention: No Disorganized Thinking: No Altered level of consciousness: No CAM result: Negative Delirium prevention / intervention appears indicated? No. Therapeutic Exercise/Activity/Neuromuscular Re-Education Patient / Caregiver Training: Interdisciplinary Communication: RN: jen for session ASSESSMENT: Pt progressing with BADL performance. Good carryover of AE use to aid in LB dressing- able to complete with SBA. Increased ease with use of new toilet aid (toilet tongs) Steadily progressing towards short term OT goals. PLAN: Continue skilled OT services to achieve the goals on the plan of care: Total treatment time: 30 minutes OT Interventions and time spent on each: Self care/Home mgmt/ADL: 30 minutes Abby Vasquez OTR/L Pager: [facility] OT Department Problem: Loss of [place] With ADLs, Risk for Goal: Will complete lower body dressing Description: Patient will complete lower body dressing with Modified [place] (6) using AE PRN Outcome: In progress Goal: Will toilet self Description: Patient will toilet self with Modified [place] (6). Outcome: In progress * Matthew Mendez MBBS - 02/20/2024 8:11 AM CDT PM&R Progress Note Patient: Alondra Aguilar Date of Service: 02/20/2024 CC: orthopedic disorders: other orthopedic Subjective: Nursing and therapy notes reviewed for the past 24 hours. No acute events overnight. Alondra Aguilar was seen at bedside with a video industrial diamond polisher. She reports no new issues or concerns. ROS: No fevers, chills, chest pain, shortness of breath, abdominal problems. Last BM 02/18. No issues with bladder. Mobility - Transfers and Bed Mobility: Supine to/from Sit: Minimal assist (from flat bed to sitting EOB) (02/18/24 1000) Sit to/from Stand: Stand by assist (02/19/24 1400) Bed to/from W/C: Minimal assist (02/19/24 1400) Gait: Distance (m): 20 m (x 3) (02/19/24 1400) Device: Front wheeled walker (02/19/24 1400) Assistance: Minimal assist (close to SBA) (02/19/24 1400) Self Care - Grooming: Supervision/Stand by assist (02/19/24 1000) Toileting: Minimal assist (75% patient effort);Moderate assist (50% patient effort);Verbal cues (02/18/24 1000) Bathing: Minimal assist (75% patient effort) (02/19/24 1000) Upper Body Dressing: Supervision/Stand by assist;Verbal cues (02/19/24 1000) Lower Body Dressing: Minimal assist (75% patient effort) (02/19/24 1000) Bowel Last Bowel Movement: 02/19/24 (02/20/24 0000) Objective: BP 118/48 (Cuff Location: Right Arm) Pulse 85 Temp 36.4 ??C (97.5 ??F) (Tympanic) Resp 19 Ht 1.27 m (4' 2) Wt 53.3 kg (117 lb 8.1 oz) SpO2 92% BMI 33.05 kg/m?? General: Alert and cooperative, NAD. Eyes: Sclera non-icteric HENT: Normocephalic, no rhinorrhea, MMM. Cardiac: No murmur. R/R/R. No edema noted bilateral LEs. Good peripheral perfusion in b/l UE/LE. Respiratory: CTA A/P bilaterally. Breathing comfortably on room air. No wheeze/rhonchi. Gastrointestinal: Bowel sounds present, abdomen soft, nondistended, nontender. Musculoskeletal: Moving all 4/4 extremities voluntarily against gravity. Extremities: Calves soft, non-tender bilaterally. Neurological: Speech fluent/comprehensible to project superintendent. Strength as above in MSK. Skin: Exposed skin warm, dry. Surgical incision over thoracic/lumbar spine healing well without drainage. Mild blanchable erythema over caudal portion of incision. No increased warmth. 3 large blisters on low back (2 right, 1 left). Psych: affect pleasant, goal oriented speech. Lab/imaging review: No results found for this visit on 02/17/24 (from the past 24 hour(s)). Assessment: Alondra Aguilar is a 73 y.o. female with chronic medical conditions including hypertension, chronic low back pain, degenerative scoliosis, admitted to [facility] February 10, 2024 for elective spinal fusion T11-S2 and left L5-S1 PLIF. Had two Hemovac drains in place postoperatively, both of which have been removed 02/14. Functionally remains below baseline with regard to mobility and self-care, requiring rehabilitation. Alondra Aguilar admitted to [facility] 02/17/2024 for acute inpatient rehabilitation related to orthopedic disorders: other orthopedic. Plan: - Patient is medically appropriate to continue current rehabilitation plan of care - Reviewed the patient's vital signs, nursing notes, therapy notes for the past 24 hours, and discussed care with nursing - remove sutures today by nursing - Orthotics consulted to evaluate TLSO fit. Suspect it may be rubbing/applying pressure in an unusual pattern on low back and contributing to large blisters. -Please see progress note from 02/19/2024 for full problem list and plan. Patient seen and discussed with Dr. Graf Navi Araya PM&R, PGY-4 This note was composed using [email or web address] software, and reviewed by myself. Please excuse any grammaticalor spelling errors above. FACULTY NOTE I saw and evaluated the patient today, 02/20/24 . I discussed with the resident and agree with the resident???s findings and plan documented in the resident???s note from above. Any revisions by me are documented. Matthew Mendez MBBS, 02/20/2024 1:16 PM Total time spent on this encounter, on the date of service including pre-visit review of separatelyobtained history, [id number] interaction performing medically appropriate physical exam, patient counseling/education, interpretation of diagnostic results, care coordination and documentation was 35 minutes. * Rebecca Allred, OTR/L - 02/19/2024 3:55 PM CDT Problem: Loss of [place] with IADL's, Risk for Goal: Improve safety with meal preparation Description: Pt will be independent/safe to prepare small meal Outcome: In progress Occupational Therapy Progress Note 02/19/2024 Current [facility] DC Plan Anticipated DC Date: 02/26/24 Potential DC location: Home or Self Care Progress from OT standpoint: Interdisciplinary DC plan not yet set - OT ELOS is (*). (~ 10 to 14 days from admission) OT Discharge Recommendations Discharge Recommendations: Safety risk for discharge to home today. Barriers to discharge to home/community: Motor / physical impairments pose safety risk Supervision / Assistance Recommended for home DC: Yes Physical assistance recommended for (OT): Upper body dressing;Lower body dressing;Toileting;Bathing;Meal preparation;Transportation Post Discharge Follow-up: (*) (TBD) Equipment Recommended: Shower chair with back Equipment Status: (Has been ordered by OT. Addendum: Pt is [place], so shower chair with back will not be covered. PT will be contacting [facility] for equipment, and will ask for the shower chair with back donation as well. Will continue to follow) Precautions/Restrictions: Activity Level: Up Ad [place] (02/19/24 1000) Spinal Precautions: TLSO - OK to don in sitting (needs to stand to fit for brace. No lifittng more than # 10) (02/19/24 1000) Diet Precautions Per AFTER SCHOOL PROGRAM TEACHER Home Energy Inspector Used: Yes, [facility] project superintendent SUBJECTIVE: Really I can't eat the egg?! Pain No overt signs of pain OBJECTIVE: Activities of Daily Living Functional Mobility Sit to/from Stand : Supervision/Stand by assist Sit to/from Stand - Method: w/ Assistive device Bed to/from W/C: Minimal assist (75% patient effort) Bed to/from W/C - Method: Standing pivot w/ assistive device (CGA) Functional Mobility in Room- Task Done: pt ambulating in kitchen Functional Mobility in Room: Minimal assist (75% patient effort) (CGA) Functional Mobility in Room- Method: Front wheeled walker Cognition / Visual Perception Mental Status: Oriented x 3;Cooperative;Follows 3 step directions Delirium Assessment: Confusion Assessment Method (CAM) Delirium prevention / intervention appears indicated? No. Therapeutic Exercise/Activity/Neuromuscular Re-Education Kitchen Meal Preparation: Pt making coffee and frying an egg Pt able to complete functional mobility throughout kitchen with SBA-CGA and FWW, 1 LOB Pt able to state all items needed to bailon an egg with cueing to bring up if pt would like to use butter or oil Assistance to locate ~30% of items due to their height Pt demonstrated safety in kitchen - 1 cue for safety with electric burner *stood for duration of task Patient / Caregiver Training: Interdisciplinary Communication: ASSESSMENT: Patient was alert and agreeable to OT session. Pt continues to benefit from increased time during ADL task and assistance due to short stature with reaching various items. Pt continues toshow improvements in balance and endurance and pt will continue to benefit from OT services to address strengthening, ADL/IADL retraining, activity tolerance/endurance, and functional mobility. PLAN: Continue skilled OT services to achieve the goals on the plan of care: Total treatment time: 55 minutes OT Interventions and time spent on each: Functional activity: 55 minutes JESSICA Doran/Jordon Pager: [facility] Department Rebecca Allred OTR/L, 02/19/2024 4:00 PM * Rebecca Rodarte, PT - 02/19/2024 3:45 PM CDT Physical Therapy Progress Note PT Discharge Recommendations Current [facility] DC Plan: Anticipated DC Date: 02/26/24 Potential DC location: Home or Self Care Who is helping at DC: Progress from PT standpoint: Interdisciplinary DC plan not yet set - PT ELOS is * (7 days from admission) Discharge Plan Discharge Recommendations: Safety risk for discharge home today. Post discharge follow-up: Outpatient PT recommended * Equipment Status: Equipment needs being determined PT Equipment Recommended: Front wheeled walker S: Patient is agreeable to participation in the therapy session., Patient seen in room, and Patientseen in gym. Pain Pain Rating With Activity (Numeric): (some minor discomfort in bilat knees) Participation Significantly Limited?: No O:Home Energy Inspector Used: Yes, [facility] project superintendent Mental Status Mental Status: Alert;Cooperative Follows Directions: Consistently follows commands Restrictions/Precautions Precautions: Thoracic Spine Precautions;Lumbar Spine Precautions (Don TLSO EOB or when HOB > 30 deg) Complies w/ Precautions?: Yes Transfer & Bed Mobility Sit to/from Stand: Stand by assist Sit to/from Stand - Method: From standard seat height;w/ Assistive device (w/ FWW) Bed to/from Chair: Minimal assist Bed to/from Chair - Method: From standard seat height;Standing pivot w/ AD;Bears weight through R LE;Bears weight through L LE (w/ FWW) Bed to/from W/C: Minimal assist Bed to/from W/C - Method: From standard seat height;Standing pivot w/ assistive device;Bears weightthrough R LE;Bears weight through L LE (w/ FWW) Car Transfer: Minimal assist Car Transfer - Method: Standing pivot w/ assistive device;Bears weight through L LE;Bears weight through R LE Gait Distance (m): 20 m (x 3) Device: Front wheeled walker Assistance: Minimal assist (close to SBA) Gait Quality (General): Slowed;Shuffling;Unsteady Gait Quality (Right side): Decreased push-off (improved wt. bearing tolerance with proper walker fitting.) Sitting Static Balance Level of Assistance: Upper Extremity Support Trunk Control: Decreased core Stability Dynamic Standing Balance Placing Alternate Foot on Stool: 30 (between cones with both left and right on 4.5 inch elevated platform.) Exercises Standing Standing Hip Flexion: 15 reps Interdisciplinary Communication PT: POC. Fall Risk Assessment: Patient is deemed high fall risk per protocol A: The patient was agreeable to the session. The patient was able to work on ambulation distance which improved from the previous day, although she did have more back pain then yesterday. She continues to struggle with full knee extension on the L then resulting in a hard step to gait pattern on the R. Pt was educated to have a quite step and to put more weight through the walker when feeling that the L LE can no longer hold her up. Pt has improved gait pattern as she ambulated a further distances. Does have weak glute meds bilaterally. Mobility Recommendations On Unit: Requires one person assist (w/ FWW) Elopement Risk (PT): No [facility] Specific Recommendations Caregiver Training Status (PT): Not yet attempted KR ELOS (PT): Interdisciplinary DC plan not yet set - PT ELOS is * (7 days from admission) P: Patient will be seen 2x/day for 30-60 min 6 days/week in order to progress towards PT related goals. Next visit progress: ambulation longer distances. Sit to stands, pivot transfers, nustep, steps, step ups, supine LE strengthening exercises SERVICE REPRESENTATIVE Appropriate: Yes Rebecca Rodarte, PT, DPT 02/19/2024 Pager: [facility] Department Problem: Decreased Transfer Skills Goal: Patient will transfer supine to/from sit Description: Patient will transfer supine to/from sit with (6) Modified [place] in order to get out of a flat bed at home by 03/04/24. Outcome: In progress Goal: Patient will transfer sit to/from stand Description: Patient will transfer sit to/from stand with (6) Modified [place] and use of FWW or LRAD in order to prepare for ambulation by 03/04/24. Outcome: In progress Problem: Decreased Ambulatory Skills Goal: Improve gait Description: Ambulate 50 meters using Front - wheeled walker or LRAD with (6) Modified [place] order to ambulate around her home by 03/04/24. Outcome: In progress Goal: Improve gait on stairs Description: Ascend/descend 6 stairs using No assistive devices with (6) Modified [place] in order to get to the basement of the home by 03/04/24. Outcome: In progress * Chandler Zuniga, DO - 02/19/2024 1:14 PM CDT PM&R Progress Note Patient: Alondra Aguilar Admission Date: 02/17/2024 Date of Service: 02/19/2024 Rehab diagnosis/ chief complaint: orthopedic disorders: other orthopedic Subjective Notes and chart reviewed for the last 24 hrs. No significant events reported. Continent for bowel and bladder. Alondra Aguilar was seen with a utilization coordinator in-person. She reports having a good night, has a good appetite, is sleeping well, and is doing well with therapies. She reports ongoing weakness and numbness/tingling in the left leg yet reports it continues to improve. She is amenable to more therapies with a discharge next week. ROS:denies KERNS/CP/Abd pain/flu symptoms. Mobility - Transfers and Bed Mobility: Supine to/from Sit: Minimal assist (from flat bed to sitting EOB) (02/18/24 1000) Gait: Self Care - Bowel Last Bowel Movement: 02/19/24 (02/19/24 0530) Objective BP 131/53 (Cuff Location: Left Arm) Pulse 85 Temp 37.3 ??C (99.1 ??F) (Tympanic) Resp 18 Ht1.27 m (4' 2) Wt 53.3 kg (117 lb 8.1 oz) SpO2 91% BMI 33.05 kg/m?? General: Alert and cooperative, NAD. Eyes: Sclera non-icteric, EOMI, PERRLA HENT: Normocephalic, no rhinorrhea, MMM. Cardiac: No murmur. R/R/R. No edema noted bilateral LEs. Good peripheral perfusion in b/l UE/LE. Respiratory: CTA A/P bilaterally. Breathing comfortably on room air. No wheeze/rhonchi. Gastrointestinal: Bowel sounds present, abdomen soft, nondistended, nontender. Musculoskeletal: Moving all 4/4 extremities voluntarily against gravity. 5/5 strength throughout b/l UE. Freely moving b/l LE against gravity without tremor. Extremities: Calves soft, non-tender bilaterally. Neurological: Speech fluent/comprehensible. Strength as above in MSK. Skin: Exposed skin warm, dry. Psych: affect pleasant, goal oriented speech. Relevant Imaging/Studies: Results for orders placed or performed during the hospital encounter of 02/17/24 (from the past 24 hour(s)) CBC WITH PLATELET Result Value Ref Range WBC 8.79 4.00 - 10.00 k/cmm RBC 2.79 (L) 3.90 - 5.20 m/cmm Hgb 8.3 (L) 11.5 - 15.7 g/dL Hematocrit 26.4 (L) 34.0 - 45.0 % MCV 94.6 80.0 - 100.0 fL MCH 29.7 25.0 - 32.0 pg MCHC 31.4 31.0 - 36.0 g/dL RDW 16.7 (H) 11.5 - 14.5 % Plt 378 150 - 400 k/cmm MPV 8.6 6.5 - 12.5 fL NRBC 0.8 (H) 0.0 - 0.0 /100WBC PANEL BASIC METABOLIC (BMP) Result Value Ref Range Sodium 133 (L) 135 - 148 mmol/L Potassium 4.1 3.5 - 5.3 mmol/L Chloride 100 92 - 108 mmol/L CO2 27 22 - 30 mmol/L AnGap 6 (L) 8 - 16 mmol/L Glucose 109 (H) 70 - 100 mg/dL BUN 12 8 - 23 mg/dL Creatinine 0.40 (L) 0.50 - 1.00 mg/dL Calcium 8.4 (L) 8.8 - 10.2 mg/dL eGFR (2020 CKD-EPI) 104 >=60 ml/min/1.73m2 Impression Alondra Aguilar is a 73 y.o. female with chronic medical conditions including hypertension, chronic low back pain, degenerative scoliosis, admitted to [facility] February 10, 2024 for elective spinal fusion T11-S2 and left L5-S1 PLIF. Had two Hemovac drains in place postoperatively, both of which have been removed 02/14. Functionally remains below baseline with regard to mobility and self-care, requiring rehabilitation. Alondra Aguilar admitted to [facility] 02/17/2024 for acute inpatient rehabilitation related to orthopedic disorders: other orthopedic. Precautions: Fall Restrictions: wear TLSO when HOB >30 degrees and when on EOB Plan #Nutrition: - cont current diet of regular with thins. #Bladder: continent, PVR/IC PRN per protocol. Patient has been using a diaper in bed during the nighttime. - PVR 0 upon admssion #Bowels: cont bowel program of the following medications Patient on opioid management for pain will monitor bowel movements can be high risk for constipation. -MiraLAX 17 g p.o. daily PRN -Senna 8.6 g p.o. twice daily PRN -LBM 02/19/2024, multiple in past 24 hours. Will change bowel meds to PRN. #Skin: No pressure injuries noted upon admission. Continue to assess with Nima score and daily provider/nursing discussion - Midline surgical incision cdi and DIRECTOR COUNSELING BUREAU, planned suture removal 02/19 - will pass to my partner for the weekend to evaluate and consider removing. - Has abrasions/blister on skin of gluteal region due to TLSO fitting. - 02/17 F/u on [facility] for brace refitting #Pain management: Location of pain hips and slower middle back region. - Tylenol 650 mg every 4 hours as needed - Oxycodone 5 to 10 mg every 4 hours as needed - Continuing to intermittently use oxycodone. Will continue to encourage weaning down during admission. - Continue to wean opioids as able. Continue to assess risk of cognitive side effects #Sleep/agitation: -sleeping well 02/19/2024 #Self management of medical condition: nursing to continue pt education as appropriate #Cognition/adjustment to disability: pt to see clinical psych as able #Safety: Continue [place] safety protocol #Community re-entry: Patient to see Burial Vault Deliverer And Installer during admission #Family training/education: Family will be educated as needed #D/C planning: Ongoing, Burial Vault Deliverer And Installer consulted for assistance #Patient goals/preferences: Improve on strength and balance. Medical Co-morbidities that necessitate inpatient hospitalization and frequent medical supervision: # Chronic low back pain with L5 radiculopathy s/p T11-S2 fusion and left L5-S1 PLIF # Scoliosis of lumbar spine -PT/OT for comprehensive rehabilitation -Psychology for adjustment support -Social work for community reentry -chest pain coordinator for assistance with discharge planning -Pain management as above -Flexeril 10 mg for muscle spasms -pain management as above # Hypertension: Vital signs twice daily for blood pressure monitoring. - Has SERVICE REPRESENTATIVE Amlodipine 5 mg daily not taking during admission due to low- normotensive BP's. Will assess and reintroduce antihypertensive if BP's go up. -BP reviewed for past 24 hours, SBP WNL. Continue to assess, no indication to restart SERVICE REPRESENTATIVE meds. # Anemia Possibly secondary to blood loss during surgery - Hgb 8.3 on 02/14. -Repeat CBC 02/19/2024 showing grossly unchanged Hgb. Continue to assess qMonday CBC #Hyponatremia -BMP 02/19/2024 reviewed showing Na 133. Did have back surgery but is not a brain injury and thus inherently less likely to be an SIADH picture. May be nutritional yet etiology is unclear. No symptomsof fatigue, somnolence, or decrease in strength. -Reassess 02/21. #Risk for anemia/infection/electrolyte abnormalities: -Weekly BMP/CBC while at [place] #VTE prophylaxis: Lovenox 30 mg daily subcutaneously until ambulating community distances. #CODE STATUS: Full Code per discussion with patient. #ELOPEMENT RISK: Not necessary Follow-up Appointment Recommendations after discharge: -PCP within 7 days of [place] discharge -PM&R within 2-4 weeks from [place] discharge if going home, or 4-6 weeks if going to a facility - Social work referral for patients going home - refer to Marina Onstad to eval and assist - NSGY 02/23 follow-up and 03/23 outpatient clinic appointment Decision maker: Self Anticipated Discharge Date / ELOS: 02/26/24 Expected Discharge Disposition: Home or Self Care - Pt is medically appropriate to continue the comprehensive inpatient rehab program as of today 02/19/2024. Chandler Zuniga DO, 02/19/2024 1:25 PM Physical Medicine & Rehabilitation Total time spent on this encounter, on the date of service including pre-visit review of separatelyobtained history, [id number] interaction performing medically appropriate physical exam, patient counseling/education, interpretation of diagnostic results, care coordination and documentation was 35 minutes. * Nolberto Gonzalez MDIV - 02/19/2024 12:50 PM CDT Spiritual Care Note Alondra Gill Jeff : 1950 Sex: female LOS: 2 days Summary: Prayer and blessing granted. Plan: Chaplains are available as needed. Nolberto Gonzalez MDIV, 02/19/2024 12:50 PM Number: [phone] * Jduy Yang OTR/L - 02/19/2024 10:25 AM CDT Occupational Therapy Progress Note 02/19/2024 Current [facility] DC Plan Anticipated DC Date: Potential DC location: Home or Self Care Progress from OT standpoint: Interdisciplinary DC plan not yet set - OT ELOS is (*). (~ 10 to 14 days from admission) OT Discharge Recommendations Discharge Recommendations: Safety risk for discharge to home today. Barriers to discharge to home/community: Motor / physical impairments pose safety risk Supervision / Assistance Recommended for home DC: Yes Physical assistance recommended for (OT): Upper body dressing;Lower body dressing;Toileting;Bathing;Meal preparation;Transportation Post Discharge Follow-up: (*) (TBD) Equipment Recommended: Shower chair with back Equipment Status: Has been ordered by OT- Addendum: Pt is [place], so shower chair with back will not be covered. PT will be contacting [facility] for equipment, and will ask for the shower chair with back donation as well. Will continue to follow Precautions/Restrictions: Activity Level: Up Ad [place] (02/19/24 1000) Spinal Precautions: TLSO - OK to don in sitting (needs to stand to fit for brace. No lifittng more than # 10) (02/19/24 1000) Diet Precautions Per AFTER SCHOOL PROGRAM TEACHER SUBJECTIVE: Cooperative and giving a good effort Pain No over signs of pain OBJECTIVE: Activities of Daily Living Grooming: Supervision/Stand by assist Grooming Comments: seated Bathing: Minimal assist (75% patient effort) Upper Body Dressing: Supervision/Stand by assist;Verbal cues Upper Body Dressing Comments: SBA to don/doff shirt underneath, to don/doff TLSO open on the back, and to don shirt over the brace with extra time while seated at EOB Upper Body Dressing Techniques & Equipment: Patient Ed Lower Body Dressing: Minimal assist (75% patient effort) Lower Body Dressing Comments: SBA to doff/don underwear, to don/doff shorts and to don B shoes using security system analyst and long shoe horn. Able to take off B slipper socks using security system analyst with increased time, needed Min A to don B slipper socks using sock aide. Lower Body Dressing Techniques & Equipment: Patient Ed Functional Mobility Sit to/from Stand : Supervision/Stand by assist Sit to/from Stand - Method: w/ Assistive device Bed to/from Chair: Supervision/Stand by assist Bed to/from Chair - Method: Standing pivot w/ AD;From standard seat height Bed to Bathroom: Supervision/Stand by assist Bed to Bathroom- Method: Front wheeled walker Shower chair justification: Due to the patient's condition, a shower chair is medically necessary to safely and successfully complete ADL's within the bathroom. Cognition / Visual Perception Following commands well. Delirium Assessment: Confusion Assessment Method (CAM) Delirium prevention / intervention appears indicated? No. Therapeutic Exercise/Activity/Neuromuscular Re-Education Patient / Caregiver Training: Caregiver Training Status (OT): Not yet attempted Interdisciplinary Communication: ASSESSMENT: Pt making very good progress. Ongoing work on morning ADL routine including showers. Ptincreasing skills for shower and to get dressed. Able to don/doff TLSO with open on the back by herself. Increasing upper body and lower body dressing skills while using AE. She needs extra time, butdoes well. A shower chair with back has been ordered. Pt is benefiting from OT skilled services to increase independence/safety for ADL. Addendum: Pt is [place], so shower chair with back will not be covered. PT will be contacting [facility] for equipment, and will ask for the shower chair with back donation as well. Will continue to follow PLAN: Continue skilled OT services to achieve the goals on the plan of care: Total treatment time: 70 minutes OT Interventions and time spent on each: Self care/Home mgmt/ADL: 70 minutes JESSICA Grover/Jordon Pager: [employer] [facility] [employer] OT Department * Chandler Zuniga, DO - 02/18/2024 7:26 AM CDT PM&R Progress Note Patient: Alondra Aguilar Admission Date: 02/17/2024 Date of Service: 02/18/2024 Rehab diagnosis/ chief complaint: orthopedic disorders: other orthopedic Subjective Notes and chart reviewed for the last 24 hrs. No significant events reported. Continent for bowel and bladder. Alondra Aguilar reports she is doing well. She was able to sleep ok overnight no acutepain noted. She did have her first sessions with therapies today and these did not exacerbate pain today. She has been able to go to the bathroom ok and is not having incontinent episodes. ROS: Alondra Aguilar denies any KERNS, changes in vision, CP, SOB, N/V, abdominal discomfort, LUTS. Mobility - Transfers and Bed Mobility: Supine to/from Sit: Minimal assist (from flat bed to sitting EOB) (02/18/24 1000) Gait: Self Care - Bowel Last Bowel Movement: 02/18/24 (02/18/24 0808) Objective BP 123/48 (Cuff Location: Right Arm) Pulse 85 Temp 36.4 ??C (97.5 ??F) (Temporal) Resp 18 Ht 1.27 m (4' 2) Wt 53.3 kg (117 lb 8.1 oz) SpO2 94% BMI 33.05 kg/m?? General: Alert and cooperative, NAD. Seated up in chair. Eyes: Sclera non-icteric, EOMI, PERRLA HENT: Normocephalic, no rhinorrhea, MMM. Cardiac: No murmur. R/R/R. No edema noted bilateral LEs. Good peripheral perfusion in b/l UE/LE. Respiratory: CTA A/P bilaterally. Breathing comfortably on room air. No wheeze/rhonchi. Gastrointestinal: Bowel sounds present, abdomen soft, nondistended, nontender. Musculoskeletal: Moving all 4/4 extremities voluntarily against gravity. Extremities: Calves soft, non-tender bilaterally. Neurological: Speech fluent/comprehensible. Strength as above in MSK. Skin: Exposed skin warm, dry. Psych: affect pleasant, goal oriented speech. Brace: TLSO brace is on. Relevant Imaging/Studies: No results found for this visit on 02/17/24 (from the past 24 hour(s)). Impression Alondra Aguilar is a 73 y.o. female with chronic medical conditions including hypertension, chronic low back pain, degenerative scoliosis, admitted to [facility] February 10, 2024 for elective spinal fusion T11-S2 and left L5-S1 PLIF. Had two Hemovac drains in place postoperatively, both of which have been removed 02/14. Functionally remains below baseline with regard to mobility and self-care, requiring rehabilitation. Alondra Aguilar admitted to [facility] 02/17/2024 for acute inpatient rehabilitation related to orthopedic disorders: other orthopedic. Precautions: Fall Restrictions: wear TLSO when HOB >30 degrees and when on EOB Plan #Nutrition: - cont current diet of regular with thins. #Bladder: Assess for continence, PVR/IC PRN per protocol. Patient has been using a diaper in bed during the nighttime. - PVR x 3 upon admission #Bowels: cont bowel program of the following medications Patient on opioid management for pain will monitor bowel movements can be high risk for constipation. -MiraLAX 17 g p.o. daily -Senna 8.6 g p.o. twice daily #Skin: No pressure injuries noted upon admission. Continue to assess with Nima score and daily provider/nursing discussion - Midline surgical incision cdi and SHRUTHI, planned suture removal 02/19 - Has abrasions/blister on skin of gluteal region due to TLSO fitting. - 02/17 F/u on [facility] for brace refitting #Pain management: Location of pain hips and slower middle back region. - Tylenol 650 mg every 4 hours as needed - Oxycodone 5 to 10 mg every 4 hours as needed - Continue to wean opioids as able. Continue to assess risk of cognitive side effects #Sleep/agitation: Will assess sleep while on the unit, if insomnia is present consider starting melatonin. #Self management of medical condition: nursing to continue pt education as appropriate #Cognition/adjustment to disability: pt to see clinical psych as able #Safety: Continue [place] safety protocol #Community re-entry: Patient to see Burial Vault Deliverer And Installer during admission #Family training/education: Family will be educated as needed #D/C planning: Ongoing, Burial Vault Deliverer And Installer consulted for assistance #Patient goals/preferences: Improve on strength and balance. Medical Co-morbidities that necessitate inpatient hospitalization and frequent medical supervision: # Chronic low back pain with L5 radiculopathy s/p T11-S2 fusion and left L5-S1 PLIF # Scoliosis of lumbar spine -PT/OT for comprehensive rehabilitation -Psychology for adjustment support -Social work for community reentry -chest pain coordinator for assistance with discharge planning -Pain management as above -Flexeril 10 mg for muscle spasms -pain management as above # Hypertension: Vital signs twice daily for blood pressure monitoring. - Has SERVICE REPRESENTATIVE Amlodipine 5 mg daily not taking during admission due to low- normotensive BP's. Will monitor and reintroduce antihypertensive if BP's go up. # Anemia Possibly secondary to blood loss during surgery - Hgb 8.3 on 02/14. Will repeat CBC 02/18 to assess for stability or downtrend. If still decreasing significantly and patient is symptomatic we will start replacement with supplements. #Risk for anemia/infection/electrolyte abnormalities: -Weekly BMP/CBC while at [place] #VTE prophylaxis: Lovenox 30 mg daily subcutaneously until ambulating community distances. #CODE STATUS: Full Code per discussion with patient. #ELOPEMENT RISK: Not necessary Follow-up Appointment Recommendations after discharge: -PCP within 7 days of [place] discharge -PM&R within 2-4 weeks from [place] discharge if going home, or 4-6 weeks if going to a facility - Social work referral for patients going home - refer to Marina Onstad to eval and assist - NSGY 02/23 follow-up and 03/23 outpatient clinic appointment Decision maker: Self Anticipated Discharge Date / ELOS: Expected Discharge Disposition: Home or Self Care - Pt is medically appropriate to continue the comprehensive inpatient rehab program as of today 02/18/2024. Patient was seen and discussed with Dr. Zuniga who agreed with the assessment and plan. Cheli Pisano MD Resident Physician PGY-3 Physical Medicine and Rehabilitation N Available via [employer] [facility] [employer] FACULTY NOTE I saw and evaluated the patient on the date of the resident's note. I discussed with the resident and agree with the resident???s findings and plan documented in the resident???s note from above. Anyrevisions by me are documented. Total time spent on this encounter, on the date of service including pre-visit review of separatelyobtained history, [id number] interaction performing medically appropriate physical exam, patient counseling/education, interpretation of diagnostic results, care coordination and documentation was 35 minutes. Chandler Zuniga DO, 02/19/2024 8:30 AM * Lakshmi Castro RN - 02/17/2024 3:13 PM CDT Upon admission, a Four Eyes Skin Inspection was completed with Marcy Soriano RN. Skin injuries were present, and skin breakdown needing further assessment will be added to [facility]. Will implement interventions from Skin INJURY Bundle as appropriate. -Incison on back with sutures-SHRUTHI - X3 Blisters with Mepilex dressing -Bruise on right hand Lakshmi Castro RN, 02/17/2024 3:15 PM documented in this encounter H&P Notes * Chandler Zuniga DO - 02/17/2024 4:28 PM CDT PM&R History & Physical / Post-Admission Physician Evaluation Attending Physician Patient: Alondra Aguilar Admission Date: 02/17/2024 Date of Service: 02/17/2024 CC: orthopedic disorders: other orthopedic History of Present Illness (HPI) I personally reviewed the patient's medical record from the most recent [facility] admission including yet not limited to notes as below, and summarized it below in conjunction with the patient interview. Notes reviewed: Discharge Summary by Emma Wesley PA-C (02/17/2024 05:21) HPI: Alondra Aguilar is a 73 y.o. female with chronic medical conditions including HTN, chronic low back pain, degenerative scoliosis admitted to [facility] 02/10/24 for elective spinal fusion T11-S2, and left L5-S1 PLIF. Post-op course has been unremarkable, TLSO brace obtained. Removal of L hemovac drain done 02/14. The patient was determined to be a good candidate for acute inpatient rehabilitation and was transferred to [place] service on 02/17/2024. Upon physician evaluation with lebanese video interpretor, the patient reports she has been doing well and her pain has been well managed so far. She has been taking her pain meds prior to sleeping atmidnight and the next dose is in the morning at 6 am. She does not wake up at night. She has been using the diaper for bladder management at night as it has been hard to get to the bathroom on time. Has not had accidents. Her bowels remain regular like at home (goes daily). Discussed with her aboutmonitoring these areas while in the unit. Discussed with her about the blisters and need to adjust brace to it is not rubbing on her skin. ROS: KERNS, changes in vision, fever, N/V abdominal discomfort, LUTS, worsening W/N/T in the extremities. Required questions/answers at admission: Pain Effect on Sleep Ask patient: ???Over the past 5 days, how much of the time has pain made it hard for you to sleep at night??? Pain Effect on Sleep: 1. Rarely or not at all If patient says they have not had any pain over the past 5 days, delete this statement and the next2 questions. Pain Interference with Therapy Activities Ask patient: ???Over the past 5 days, how often have you limited your participation in rehabilitation therapy sessions due to pain? 0. Does not apply - I have not had any pain or hurting in the past5 days Pain Interference with Day-to-Day Activities Ask patient: ???Over the past 5 days, how often have you limited your day-to-day activities (excluding rehabilitation therapy sessions) because of pain??? 0. Does not apply - I have not had any painor hurting in the past 5 days Past Medical History Reviewed with the patient. Significant for history listed in HPI or below. No past medical history on file. Past Surgical History Reviewed with the patient. Significant for history listed in HPI or below. Past Surgical History: Procedure Laterality Date ??? REPRODUCTIVE SURGERY HISTORY Bilateral 1984 tubal Medications and Allergies Current Medications: Current Facility-Administered Medications: ??? acetaminophen (TYLENOL) tablet 650 mg, 650 mg, Oral, q4h prn, Cheli Pisano MD ??? cyclobenzaprine (FLEXERIL) tablet 10 mg, 10 mg, Oral, tid prn, Cheli Pisano MD ??? oxyCODONE (ROXICODONE) tablet 5-10 mg, 5-10 mg, Oral, q4h prn, Cheli Pisano MD ??? sennosides (SENOKOT) tablet 8.6 mg, 8.6 mg, Oral, bid, Cheli Pisano MD ??? [START ON 02/18/2024] polyethylene glycol 3350 (MIRALAX;GLYCOLAX) packet 17 g, 17 g, Oral, daily, Cheli Pisano MD ??? [START ON 02/18/2024] enoxaparin (LOVENOX) 30 mg/0.3 mL injection 30 mg, 30 mg, Subcutaneous, daily, Cheli Pisano MD Allergies: Reviewed with the patient. Significant for history listed in HPI or below. No Known Drug Allergies Social History Reviewed with the patient. Significant as below. Living situation/support: Lives in a house with 3 steps to enter and 6 steps inside, has intermittent support available (daughter lives with her but works during the day) Vocational History: Currently not working Driving: no Activities of daily living: independent Cognition: independent Mobility: independent Assistive devices: No assistive devices Functional Status Prior to admission, patient was independent in mobility and ADL's Currently: Mobility -min assist bed mobility and short distance ambulation with front wheeled walker Self Care -max assist toileting, max assist upper body dressing, max assist lower body dressing Cognition/Communication-no concerns Swallow -no concerns Physical Exam BP 122/44 (Cuff Location: Right Arm) Pulse 85 Temp 35.8 ??C (96.5 ??F) (Tympanic) Resp 18 Ht 1.27 m (4' 2) Wt 53.3 kg (117 lb 8.1 oz) SpO2 96% BMI 33.05 kg/m?? General: Alert and cooperative, NAD. Eyes: Sclera non-icteric, EOMI, PERRLA HENT: Normocephalic, no rhinorrhea, MMM. Cardiac: No murmur. R/R/R. No edema noted bilateral LEs. Good peripheral perfusion in b/l UE/LE. Respiratory: CTA A/P bilaterally. Breathing comfortably on room air. No wheeze/rhonchi. Gastrointestinal: Bowel sounds present, abdomen soft, nondistended, nontender. Musculoskeletal: Moving all 4/4 extremities voluntarily against gravity. Strength BUE 5/5 and RLE HF 4/5, KE 5/5, KF 5/5, DF/PF 5/5, EHL 5/5 LLE HF 4/5, KE 4/5, KF 5/5, DF/PF 5/5, EHL 5/5 Extremities: Calves soft, non-tender bilaterally. Neurological: Speech fluent/comprehensible. Strength as above in MSK. Skin: Exposed skin warm, dry. Midline surgical incision with sutures, healing well no erythema and X3 sites with mepilex for blisters (right upper back and buttock region). Psych: affect pleasant, goal oriented speech. Relevant Imaging/Studies: Lab Results Component Value Date/Time NA 140 02/12/2024826 K 3.7 02/12/2024826 CHLORIDE 107 02/12/2024826 CO2 28 02/12/2024826 GLU 108 (H) 02/12/2024826 UN 12 02/12/2024826 CR 0.43 (L) 02/12/2024826 CA 7.6 (L) 02/12/2024826 Lab Results Component Value Date/Time WBC 7.81 02/15/2024545 RBC 2.80 (L) 02/15/2024 0546 HGB 8.3 (L) 02/15/2024 0546 HCT 25.7 (L) 02/15/2024 0546 PLT 162 02/15/2024 0546 The images from the selected radiology studies below were directly and independently reviewed by me. I agree with the radiologist's impression as below. XR T spine 02/13 Impression: Stable thoracic mild dextro scoliosis. Extensive postsurgical changes of spinal fusion in the lumbar spine with improved scoliosis. XR L spine 02/13 Impression: Stable extensive postsurgical changes as described above. Hardware appears intact. Alignment is stable. Impression Alondra Aguilar is a 73 y.o. female with chronic medical conditions including hypertension, chronic low back pain, degenerative scoliosis, admitted to [facility] February 10, 2024 for elective spinal fusion T11-S2 and left L5-S1 PLIF. Had two Hemovac drains in place postoperatively, both of which have been removed 02/14. Functionally remains below baseline with regard to mobility and self-care, requiring rehabilitation. Alondra Aguilar admitted to [facility] 02/17/2024 for acute inpatient rehabilitation related to orthopedic disorders: other orthopedic. Precautions: Fall Restrictions: wear TLSO when HOB >30 degrees and when on EOB Plan Scope of services: PT- Total of 1.5 hours/day, 5 days/week or 7.5 hours/week for 10 days OT- Total of 1.5 hours/day, 5 days/week or 7.5 hours/week for 10 days #Nutrition: - cont current diet of regular with thins. #Bladder: Assess for continence, PVR/IC PRN per protocol. Patient has been using a diaper in bed during the nighttime. - PVR x 3 upon admission #Bowels: cont bowel program of the following medications Patient on opioid management for pain will monitor bowel movements can be high risk for constipation. -MiraLAX 17 g p.o. daily -Senna 8.6 g p.o. twice daily #Skin: No pressure injuries noted upon admission. Continue to assess with Nima score and daily provider/nursing discussion - Assess midline surgical incision planned suture removal 02/19 - Has abrasions/blister on skin of gluteal region due to TLSO fittingBaltazar for brace refitting in AM 02/17 #Pain management: Location of pain hips and slower middle back region. - Tylenol 650 mg every 4 hours as needed - Oxycodone 5 to 10 mg every 4 hours as needed - Continue to wean opioids as able. Continue to assess risk of cognitive side effects #Sleep/agitation: Will assess sleep while on the unit, if insomnia is present consider starting melatonin. #Self management of medical condition: nursing to continue pt education as appropriate #Cognition/adjustment to disability: pt to see clinical psych as able #Safety: Continue [place] safety protocol #Community re-entry: Patient to see Burial Vault Deliverer And Installer during admission #Family training/education: Family will be educated as needed #D/C planning: Ongoing, Burial Vault Deliverer And Installer consulted for assistance #Patient goals/preferences: Improve on strength and balance. Medical Co-morbidities that necessitate inpatient hospitalization and frequent medical supervision: # Chronic low back pain with L5 radiculopathy s/p T11-S2 fusion and left L5-S1 PLIF # Scoliosis of lumbar spine -PT/OT for comprehensive rehabilitation -Psychology for adjustment support -Social work for community reentry -chest pain coordinator for assistance with discharge planning -Pain management as above -Flexeril 10 mg for muscle spasms -pain management as above # Hypertension: Vital signs twice daily for blood pressure monitoring. - Has SERVICE REPRESENTATIVE Amlodipine 5 mg daily not taking during admission due to low- normotensive BP's. Will monitor and reintroduce antihypertensive if BP's go up. # Anemia Possibly secondary to blood loss during surgery - Hgb 8.3 on 02/14. Will repeat CBC 02/18 to assess for stability or downtrend. If still decreasing significantly and patient is symptomatic we will start replacement with supplements. #Risk for anemia/infection/electrolyte abnormalities: -Weekly BMP/CBC while at [place] #VTE prophylaxis: Lovenox 30 mg daily subcutaneously until ambulating community distances. #CODE STATUS: Full Code per discussion with patient. #ELOPEMENT RISK: Not necessary Follow-up Appointment Recommendations after discharge: -PCP within 7 days of [place] discharge -PM&R within 2-4 weeks from [place] discharge if going home, or 4-6 weeks if going to a facility - Social work referral for patients going home - refer to Marina Onstad to eval and assist - NSGY 02/23 follow-up and 03/23 outpatient clinic appointment Patient was seen and discussed with Dr. Zuniga who agreed with the assessment and plan. Cheli Pisano MD Resident Physician PGY-3 Physical Medicine and Rehabilitation [facility] This note was composed using [email or web address] software, and reviewed by myself. Please excuse any grammaticalor spelling errors above. FACULTY NOTE I saw and evaluated the patient today, 02/17/2024. I discussed with the resident and agree with the resident???s findings and plan documented in the resident???s note from above. Any revisions by me are documented. Total time spent on this encounter, on the date of service including pre-visit review of separatelyobtained history, [id number] interaction performing medically appropriate physical exam, patient counseling/education, interpretation of diagnostic results, care coordination and documentation was 75 minutes. Chandler Zuniga DO, 02/17/2024 4:31 PM documented in this encounter Consult Notes * Alicia Velazquez, PharmKevin - 02/26/2024 1:14 PM CDTAssociated Order(s): DISCHARGE MED REC FINAL REVIEW BY PHARMACY PHARMACY DISCHARGE NOTE Alondra Gill Jeff : 1950 Sex: female Pharmacy service was consulted for review of patient's discharge medications. Assessment: Pertinent points to note: --Amlodipine on hold with plan to follow up with PCP I have reviewed the patient's medications for discharge and have discussed the necessary changes with the provider. Changes have been made and medication list updated and complete. Please page with any questions. Alicia Velazquez PharmD 02/26/2024 13:14 For questions regarding this note, please contact pharmacist on service at [facility] [employer] ([employer]) or [phone]. If no response within needed timeframe, please contact central pharmacy via phone at [phone]. Planned discharge medications are: Medication List Medications Indications acetaminophen 325 mg tablet Commonly known as: TYLENOL Take 3 tablets (975 mg) by mouth 3 times daily as needed for Mild Pain. Indications: PainThis is over the counter. Obtain from your local pharmacy and follow the instructions on the bottle. Do not exceed 3000 mg per day Indications: Pain multivitamin + minerals [place] 1 tableta por la boca cada hipolito. (Take 1 tablet by mouth daily.) oxyCODONE 5 mg tablet Commonly known as: ROXICODONE [place] 1 tableta cada 4 horas seg??n sea necesario para el dolor. NO tome m??s de la cantidad m??ximadiaria. Deje de yobani oxicodona antes si puede. D??a - M??ximo diario: D??as 1-3: 2 tabletas cada hipolito; D??as 4-7: 1 tableta cada hipolito. (Take 1 tablet every 4 hours as needed for pain. DO NOT take more than the daily maximum amount. Stop taking the oxycodone sooner if able. Day - Daily Maximum: Days 1-3: 2 tablets each day; Days 4-7: 1 tablet each day.) Indications: Acute Pain traZODone 50 mg tablet Commonly known as: DESYREL [place] media tableta (25 mg) por v??a oral antes de acostarse, seg??n sea necesario para dormir. (Take one-half tablet (25 mg) by mouth at bedtime as needed for Sleep.) Indications: Trouble Sleeping * Niru Staton PsyD, LP - 02/22/2024 10:30 AM CDTAssociated Order(s): CONSULT TO PSYCHOLOGY - [place] [facility] Inpatient Psychology Initial Contact Note Start and End Times: 10:30-11:00am Service Type: Health and Behavior Reason for Referral: Eval adjustment to disability Mental health symptoms and assessment: Alondra was seen for an initial psychology visit at [place]. She reported doing very well in her rehab and reported no significant mental health/adjustment concerns.She felt the surgery was a success thus far as she is in much less pain than before. She acknowledged feeling quite depressed and anxious prior to surgery as she was in so much pain and functional very limited. She now feels hopeful and happy about returning to her life, which includes caring for her 5yo granddaughter. She reported no issues with sleep, appetite or pain. Recommendations and plan: Alondra is hoping to resuming caring for her 5yo granddaughter. Recommend rehab therapies discuss thiswith the patient to determine if she would be ready to take on any caretaking tasks upon discharge.Will bring this up with the team tomorrow at rounds. Rehab psychology will continue to follow during this admission. Please call ([phone]) or [employer] this provider with questions or concerns regarding this patient's mood/adjustment, participation, and/or pain management. Mental status and session data: Met with patient for psychology visit. Patient was pleasant and agreeable to meeting. She was oriented to person, situation, place, and generally date and time. Speechwas of normal rate, volume, and prosody. No noted issues with comprehension or word finding were observed. Thought process was organized, linear, and goal-directed. No obvious AVH, delusions, and no reported SI. Insight and judgement appeared adequate. Reported mood was good and affect was reactiveand appropriate to context. Explored Alondra's adjustment to her situation and provided support. Diagnosis: Chronic low back pain with L5 radiculopathy s/p T11-S2 fusion and left L5-S1 PLIF History of Presenting Illness: The following was obtained from the medical chart unless otherwise indicated. Alondra Aguilar is a 73 y.o. female with chronic medical conditions includingHTN, chronic low back pain, degenerative scoliosis admitted to [facility] 02/10/24 for elective spinal fusion T11- S2, and left L5-S1 PLIF. Post-op course has been unremarkable, TLSO brace obtained. Removal of L hemovac drain done 02/14. The patient was determined to be a good candidate for acute inpatient rehabilitation and was transferred to [place] service on 02/17/2024. Niru Staton PsyD, LP 02/22/2024 16:43 Rehabilitation Psychologist [facility] Available on [employer] * Alonso Blackman CWON - 02/22/2024 8:55 AM CDTAssociated Order(s): CONSULT TO WOUND NURSE Images from the original note were not included. Wound Ostomy Continence Nurse Consult Alondra Aguilar - : 1950 - MR# [id number] - Date: 02/22/2024 Follow up: 02/21 re consulted d/t blisters opening with serous drainage. Entered new dressing changeorders, nursing to continue cares. Reason For Consultation: The patient is being seen in consultation at the request of construction rigger for evaluation of skin breakdown to right gluteal area. Mattress: Isotour (MedSurg Standard surface) Wound Description: Pt present with serous filled blister to right gluteal area, possibly related tofriction or pressure from ill fitting TLSO. Somkley came to adjust today and per RN is fitting better. RN to apply bordered foam dressings PRN under brace. Consult Recommendations: Not applicable WOC Nursing follow up: Appreciate the opportunity to consult on this patient, Wound Ostomy Continence Services will sign off at this time. Please place additional 'Wound Consult' if wanting further assessment for this patient. Staff to continue to follow skin injury bundle. Escalate concerns to WOCN through additional consult or to the provider when barriers are identified. WOCN available Thursday through Thursday on [employer] or [phone] Alonso Blackman CWON, 02/22/2024 8:55 AM * Rebecca Rodarte, PT - 02/18/2024 4:13 PM CDT [facility] PHYSICAL THERAPY EVALUATION Alondra Aguilar was seen 02/18/2024 for a Physical Therapy Evaluation. PT Discharge Recommendations Discharge Recommendations: Safety risk for discharge home today. Barriers to discharge to home/community: Pain;Caregiver support/supervision insufficient;High fallsrisk;Motor / physical impairments pose safety risk If discharging to home, would need: Physical assistance when mobilizing;Assist with community access and mobility Post discharge follow-up: Outpatient PT recommended * Equipment Status: Equipment needs being determined PT Equipment Recommended: Front wheeled walker DIAGNOSIS Patient Active Problem List Diagnosis ??? Cancer screening ??? Scoliosis of lumbar spine ??? Arthralgia of both hands ??? Lumbar radiculopathy ??? Cervical radiculopathy ??? Essential hypertension ??? Scoliosis of lumbar spine, unspecified scoliosis type PRECAUTIONS Precautions: Thoracic Spine Precautions;Lumbar Spine Precautions (Don TLSO EOB or when HOB > 30 deg) (02/18/24 1400) Complies w/ Precautions?: Yes (02/18/24 1400) Home Energy Inspector Used: No, certified bilingual staff Name or Reference Number (phone): [id number] Vicki HISTORY Pertinent History: Per on 02/17/24: History of Present Illness (HPI) I personally reviewed the patient's medical record from the most recent [facility] admission including yet not limited to notes as below, and summarized it below in conjunction with the patient interview. Notes reviewed: Discharge Summary by Emma Wesley PA-C (02/17/2024 05:21) HPI: Alondra Aguilar is a 73 y.o. female with chronic medical conditions including HTN, chronic low back pain, degenerative scoliosis admitted to [facility] 02/10/24 for elective spinal fusion T11-S2, and left L5-S1 PLIF. Post-op course has been unremarkable, TLSO brace obtained. Removal of L hemovac drain done 02/14. The patient was determined to be a good candidate for acute inpatient rehabilitation and was transferred to [place] service on 02/17/2024. Upon physician evaluation with lebanese video interpretor, the patient reports she has been doing well and her pain has been well managed so far. She has been taking her pain meds prior to sleeping atmidnight and the next dose is in the morning at 6 am. She does not wake up at night. She has been using the diaper for bladder management at night as it has been hard to get to the bathroom on time. Has not had accidents. Her bowels remain regular like at home (goes daily). Discussed with her aboutmonitoring these areas while in the unit. Discussed with her about the blisters and need to adjust brace to it is not rubbing on her skin. ROS: KERNS, changes in vision, fever, N/V abdominal discomfort, LUTS, worsening W/N/T in the extremities. Required questions/answers at admission: Pain Effect on Sleep Ask patient: ???Over the past 5 days, how much of the time has pain made it hard for you to sleep at night??? Pain Effect on Sleep: 1. Rarely or not at all If patient says they have not had any pain over the past 5 days, delete this statement and the next2 questions. Pain Interference with Therapy Activities Ask patient: ???Over the past 5 days, how often have you limited your participation in rehabilitation therapy sessions due to pain? 0. Does not apply - I have not had any pain or hurting in the past5 days Pain Interference with Day-to-Day Activities Ask patient: ???Over the past 5 days, how often have you limited your day-to-day activities (excluding rehabilitation therapy sessions) because of pain??? 0. Does not apply - I have not had any painor hurting in the past 5 days Medical History No past medical history on file. SOCIAL HISTORY Information gathered from: Patient Home: House Prior level of function: independent with mobility Baseline Ambulation: Limited community ambulation Assist available at home: Yes, lives with her daughter and granddaughter who can assist. Daughter does go to work. Stairs required at home: Outside - how many? 3 Has no hand rail (s) Inside - how many? One flight to the basement Has one hand rail (s) Previous assistive device used: None SUBJECTIVE Patient's Stated Goals: to move and walk Has the patient had two or more falls in the past year or any fall with harm: no Pain: Participation Significantly Limited?: No (02/18/24 1400) Mental Status: Mental Status: Alert;Cooperative (02/18/24 1400) Follows Directions: Consistently follows commands (02/18/24 1400) OBJECTIVE Initial patient presentation upon PT arrival: seated in chair Skin: Intact skin that was able to be observed Braces/Splints: TLSO Lines: None Restraints/Fall Management: None Sensation: Right Left Light Touch: WNL except: decreased sensation on the thigh Pin Prick: Not Tested Proprioception: Not Tested Light Touch: WNL except:decreased sensation on the thigh Pin Prick: Not Tested Proprioception: Not Tested Motor ROM/Strength: Right Left Upper Extremity: Range of Motion Grossly WNL Strength Grossly >3/5 Upper Extremity: Range of Motion Grossly WNL Strength Grossly >3/5 Lower Extremity: Range of Motion Grossly WNL Strength Hip Flexion: 3+/5 Knee Flexion: 4-/5 Knee Extension: 3+/5 Dorsiflexion: 4/5 Plantar Flexion: 4/5 Lower Extremity: Range of Motion Grossly WNL Strength Hip Flexion: 3/5 Knee Flexion: 3+/5 Knee Extension: 3+/5 Dorsiflexion: 4/5 Plantar Flexion: 4/5 Comments: Strength was tested in the wheelchair Transfers & Bed Mobility: Roll Left: Stand by assist (02/18/24 1000) Roll Right: Stand by assist (02/18/24 1000) Supine to/from Sit: Minimal assist (from flat bed to sitting EOB) (02/18/24 1000) Sit to/from Stand: Stand by assist (02/18/24 1400) Sit to/from Stand - Method: From standard seat height;w/ Assistive device (w/ FWW) (02/18/24 1400) Bed to/from Chair: Minimal assist (02/18/24 1400) Bed to/from Chair - Method: From standard seat height;Standing pivot w/ AD;Bears weight through R LE;Bears weight through L LE (w/ FWW) (02/18/24 1400) Bed to/from W/C: Minimal assist (02/18/24 1400) Bed to/from W/C - Method: From standard seat height;Standing pivot w/ assistive device;Bears weightthrough R LE;Bears weight through L LE (w/ FWW) (02/18/24 1400) Car Transfer: Minimal assist (02/18/24 1400) Car Transfer - Method: Standing pivot w/ assistive device;Bears weight through L LE;Bears weight through R LE (02/18/24 1400) Gait Evaluation: Distance (m): 20 m (+ 40 m + 10 m) (02/18/24 1400) Device: Front wheeled walker (02/18/24 1400) Assistance: Minimal assist (close to SBA) (02/18/24 1400) Gait Quality (General): Slowed;Shuffling;Unsteady (02/18/24 1400) Gait Quality (Right side): Steppage gait (d/t pain and weakness in the L LE) (02/18/24 1400) Stairs: Number of Steps: 4 (02/18/24 1000) Stair Rails: Right rail;Left rail (02/18/24 1000) Stairs : Minimal assist (02/18/24 1000) Stairs Method: Ascend step-to pattern;Descend step-to pattern;Bears weight through L LE;Bears weight through R LE (up with the R, down with the L) (02/18/24 1000) Assistive Devices Used: None (02/18/24999) Curb or one step: Minimal assistance- Patient performs 75% or more of walking effort. Sitting Static Balance Level of Assistance: Upper Extremity Support (02/18/24 1400) Trunk Control: Decreased core Stability (02/18/241399) Interdisciplinary Communication Rounds Comments (PT): Recommend d/c home in 1 week w/ PRN assistance to get to appointments. Pt will need FWW and will contact Hugo Araujo. OP PT at discharge. Barriers are the stairs and pain. (02/18/24 1000) Rounds Comments (PT): Recommend d/c home in 1 week w/ PRN assistance to get to appointments. Pt will need FWW and will contact Hugo Araujo. OP PT at discharge. Barriers are the stairs and pain. Treatment rendered: Gait training;Transfer training;Strengthening;Positioning;Neuromuscular re-education Total treatment time: 30 minutes ASSESSMENT Alondra Aguilar is a 73 y.o. female who presents with Pain, Impaired gait, Decreased Strength, Impaired Balance, and Decreased Activity Tolerance following hospitalization for orthopedicdisorders: other orthopedic. These impairments affect the patient's ability to safely and independently perform Bed Mobility, Transfers, Ambulation, Stairs, and Community Integration. Upon completionof therapy evaluation patient was able to transfer with Minimal assist (02/18/24 1400) and ambulatewith Minimal assist (close to SBA) (02/18/24 1400) using Front wheeled walker (02/18/24 1400). Skilled PT services for gait, transfers, bed mobility, balance/coordination, neuro-muscular re-education, therapeutic exercise, range of motion, and positioning to maximize independence. PT prognosisto meet PT related goals is Good. [facility] ELOS (PT): Interdisciplinary DC plan not yet set - PT ELOS is* (7 days from admission) (02/18/24 1400). Pt will continue to benefit from the frequency and intensity to Micheal Huizar (KR). On Unit: Requires one person assist (w/ FWW) (02/18/24 1400) Elopement Risk (PT): No (02/18/24 1400) PT Treatment Diagnosis: Difficulty in Walking R 26.2 Impaired Mobility Z 74.09 Activity Intolerance Z 73.89 Muscle Weakness M 62.81 Unsteadiness on Feet R 26.81 Low Back Pain M 54.5 See Care Plan for goals. PLAN Patient will be seen 2x/day for 30-60 min 6 days/week to progress towards PT related goals. Next visit progress: ambulation longer distances w/ FWW vs 4WW, L LE strengthening, step through gait pattern, standing tolerance at ion rail, supine LE strengthening exercises, NuStep SERVICE REPRESENTATIVE Appropriate: Yes (02/18/24 1400) Participated in goal setting and treatment planning: Patient Agrees with goals and treatment plan: Patient - Yes. Rebecca Rodarte, PT, DPT 02/18/2024 Pager: [employer] PT Department * Judy Yang, OTR/L - 02/18/2024 3:44 PM CDT [facility] Occupational Therapy Initial Evaluation Patient name: Alondra Aguilar : 1950 Age: 73 y.o. [facility] Admission Date: 02/17/2024 Today's Date: 02/18/2024 Occupational Profile Medical History relevant to OT referral: Primary Diagnosis: orthopedic disorders: other orthopedic Treatment Diagnosis: Impairments in motor function that limit safety and or independence with ADL's/ IADL's Restrictions/Precautions: Activity Level: Up Ad [place] Spinal Precautions: TLSO - OK to don in sitting (needs to stand to fit for brace. No lifittng more than # 10) Hospital Course: See MD Zuniga's H&P note from today. Past Medical History No past medical history on file. Living Situation/Social History: Information obtained From: patient;chart Help Available at home: yes, but not 24 hour (Lives with daughter who works during the day in the basement of a house. 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 Grand daughter is going to day care while she is recovering.) Vocation Status: retired Transportation: at baseline patient: pt does not drive Mobility equipment currently available/used: none ADL Equipment currently available/used: none *Makes small meals. One daughter does most of the cooking. The other daughter helps with her laundry Prior Level of Function: ADLs/IADLs: No assistance required (Independent or modified independent) Functional Mobility: Independent in the home without assistive device Evaluation Home Energy Inspector Used: No, certified bilingual staff Subjective: Cooperative and giving a good effort Pain: 5/6 in the low back and hips Patient Appearance: Good Midline Orientation / Trunk Control: Midline orientation in sitting: Good Midline orientation in standing: [facility] Sitting Balance Scale: Score = 4 (Pt moves and returns to midline 1-2 inches in one plane) Upper Extremity Function: Hand Dominance: Right Bilateral UE ROM, strength, coordination, and sensation are WFL for basic self-cares. Activities of Daily Living: Grooming: Supervision/Stand by assist Grooming Comments: seated Toileting: Minimal assist (75% patient effort);Moderate assist (50% patient effort);Verbal cues Toileting Comments: to use toilet in the bathroom. Provided toilet aid for wiping and pt was able to use it after education Bathing: Minimal assist (75% patient effort);Moderate assist (50% patient effort) Bathing Comments: Assisted to wash buttocks and lower legs/feet Upper Body Dressing: Modl assist (50% patient effort);Dependent (less than 25% patient effort) Upper Body Dressing Comments: Mod A to don/doff shirt underneath brace, Max A to don/doff TLSO and Mod A to don dress on top of brace Upper Body Dressing Techniques & Equipment: Patient Ed Lower Body Dressing: Maximal assist (25% patient effort);Dependent (less than 25% patient effort) Lower Body Dressing Comments: Max A to don underwear. Total A to don B socks and shoes Lower Body Dressing Techniques & Equipment: Patient Ed Functional Mobility: Sit to/from Stand : Minimal assist (75% patient effort);Verbal cues Sit to/from Stand - Method: w/ Assistive device Bed to/from Chair: Minimal assist (75% patient effort);Verbal cues Bed to/from Chair - Method: Standing pivot w/ AD;From standard seat height Toilet Transfer: Minimal assist (75% patient effort);Verbal cues Tub Transfer: Minimal assist (75% patient effort);Verbal cues Tub Transfer- Method: Grab bar(s);Shower chair Bed to Bathroom: Minimal assist (75% patient effort);Verbal cues Bed to Bathroom- Method: Front wheeled walker Functional Mobility in Room- Task Done: Walked from room to the lounge area in the [facility], after sitting break, pt walked back. Used walker, at a slow pace, with Min A Activity Tolerance/Endurance: Fair Cognition: Good. Following commands appropriately Delirium assessment: Confusion Assessment Method (CAM) Delirium prevention / intervention appears indicated? No. Insight: Good Directions: Patient able to follow 2 steps directions Brief Interview for Mental Status (BIMS) Repetition of Three Words: Three Temporal Orientation: Year - Correct Month - Accurate within 5 days Day - Correct Recall of Three Words: Sock - Yes, no cue required Blue - Yes, no cue required Bed - Yes, no cue required BIMS Interpretation: Summary Score: 15 13-15 = Cognitively Intact 08-12 = Moderately Impaired 00-07 = Severe Impairment Additional Treatment / Education Provided: Education / training was provided to patient regarding - Activities of daily living (ADL's): UB dressing compensatory strategies, LB dressing compensatorystrategies, Bathing strategies, and Toileting strategies - Functional mobility / transfer training: Toilet/commode transfer technique, Bathtub/shower transfer technique, Walker safety, and sit<->stand - DME / Adaptive equipment (AE) recommendations: Bathing equipment (shower chair with back) - Brace (TLSO): purpose, donning, doffing, wear schedule, skin integrity education - Educated on LB dressing using AE and provided a security system analyst, sock aid and long shoe horn - Educated on toilet aid for wiping and provided a toilet aid. Caregiver Training Status (OT): Not yet attempted Interdisciplinary Communication: RN: Per RN ok to shower and let water run over spinal wound, dry pat with caution. Pt is wearing a TLSO with opening on the baack Barriers to Learning: language barrier (non-[place] speaker) Assessment / Plan Assessment: This is a 73 y.o Algerian speaking female, admitted after elective spinal fusion. Pt following commands appropriately. Pt is requiring overall Mod A of 1 for ADL while using FWW for functional mobility. She is moving at a slow pace. Fair activity tolerance. Anticipating she should be able to go back home with A PRN from family. Daughters work and she will be alone during the day. Recommending shower chair with back for AE. Likely will not need toileting AE Impairments: This patient demonstrates impairments in the followingMotor function: Strength / Muscle power Functional mobility Balance Performance Deficits / Activity Limitations: The impairments listed above affect the patient's ability to safely and independently engage in the following occupations Activities of Daily Living (ADL's) including: Personal hygiene and grooming, Dressing, Upper Body Dressing, Lower Body Dressing, Toileting and/or toilet hygiene, and Bathing / showering Instrumental Activities of Daily Living (IADL's) including Meal preparation and clean up Rehab Potential: good Estimated Length of Stay: It is anticipated this patient would meet the OT discharge goals in approximately 10 to 14 days from admission. Patient's Stated Goals: [place] por mi misma To be able to do things by myself This patient will benefit from skilled OT services for ADL retraining, activity tolerance, and functional mobility to maximize independence and safety with ADLs. Plan: See Care Plan for Patient's identified goals and specific performance areas to be addressed by OT. Continue skilled OT services to achieve the goals on the plan of care: Anticipated frequency: TID Anticipated duration: throughout rehab stay Participated in goal setting and treatment planning: Patient Agrees with goals and treatment plan: Patient - Yes Total treatment time: 114 minutes OT Interventions and Time Spent on Each: Eval: 30 minutes Self care/Home mgmt/ADL: 30 +30 minutes Functional activity: 24 minutes Therapist: OLIVIA Grover Pager: Tiffany Occupational Therapy Department * Allie Martin, PT - 02/18/2024 9:55 AM CDTAssociated Order(s): CONSULT TO CEMENT PATCHER Care Coordination Assessment Patient Name: Alondra Aguilar Date: 02/18/2024 Expected DC Date: Social Information Home Energy Inspector Used: Yes, [facility] project superintendent Decision Maker at Admission: Self Living Situation: Home Facility Admitted From: hospital Name of facility: [facility] Patient Identified Support System: Two daughters - Kaela Payne, Candace Payne Services Receiving: None Complex Medical Needs: None Transportation Used for Discharge: Daughters Safety Concerns: None Behavioral Health Concerns: None Patient Family Goals Patient's Discharge Goal: She wants to be able to not have pain when she goes home. She wants to beable to do everything on her own. Family's Discharge Goal: Not present Plan/Interventions Expected Discharge Disposition: Home or Self Care Patient Information Verification Verified demographic information, including SSN, Next of Kin, and Guardianship: Yes Verified PCP: Yes If post-acute placement is needed, have vaccination status needs been addressed?: Not applicable Risks for Readmission: None Summary of pertinent information: She plans to discharge home to her house where she lives with twodaughters, son-in-law, and her granddaughter. Her PCP is Dr. Marcela Vera here at [place]. OP therapies here at the [facility]. Living situation: She lives in the basement down a flight of stairs of a house with her two daughters, her son-in-law, and her granddaughter. Family/ support system: Two daughters Caregiver: Daughters - they are both planning to take a little time off Financial: Daughters support her Education/Employment: Not working prior to admission Legal/POA/HCD:Neither Transportation: Her daughters will provide transportation Transportation Needs - Disability Parking or Metro Mobility: Gave her a disability parking pass application PCP: Dr. Marcela Vera Outpatient Therapies: Here at the [facility] Burial Vault Deliverer And Installer will follow-up Tomorrow with expected discharge date DC PLAN: Home with family DC Address: [address] [place] [phone] FIM done: Yes Allie Martin PT, 02/18/2024 9:55 AM documented in this encounter Miscellaneous Notes * Discharge non-MD/non-NANCY Summaries - Rebecca Rodarte, PT - 02/26/2024 4:23 PM CDT Images from the original note were not included. Physical Therapy Inpatient Discharge Summary Alondra Aguilar [id number] Diagnosis Patient Active Problem List Diagnosis Cancer screening Scoliosis of lumbar spine Arthralgia of both hands Lumbar radiculopathy Cervical radiculopathy Essential hypertension Scoliosis of lumbar spine, unspecified scoliosis type Precautions: Precautions: Thoracic Spine Precautions;Lumbar Spine Precautions (Don TLSO EOB or whenHOB > 30 deg) (02/26/24 1600) Complies w/ Precautions?: Yes (02/26/24 1600) Pain at final sessions: Pain Rating With Activity (Numeric): 5 (left low back) (02/26/24 1030) Participation Significantly Limited?: No (02/26/24 1600) Transfer & Bed Mobility Roll Left: Modified independent (02/26/24 1030) Roll Right: Modified independent (02/26/24 1030) Supine to/from Sit: Modified independent (02/26/24 1030) Sit to/from Stand: Modified independent (02/26/24 1600) Sit to/from Stand - Method: From standard seat height;w/ Assistive device (w/ FWW) (02/26/24 1600) Bed to/from Chair: Modified independent (02/26/24 1600) Bed to/from Chair - Method: From standard seat height;Standing pivot w/ AD (02/26/24 1600) Bed to/from W/C: Modified independent (02/23/24 0900) Bed to/from W/C - Method: From standard seat height;Standing pivot w/ assistive device;Bears weightthrough R LE;Bears weight through L LE (02/23/24 0900) Car Transfer: Minimal assist (02/21/24 1100) Car Transfer - Method: Standing pivot w/ assistive device;Bears weight through L LE;Bears weight through R LE (02/21/24 1100) Gait Distance (m): 25 m (x 2) (02/26/24 1600) Device: Front wheeled walker (02/26/24 1600) Assistance: Modified independent (household exemption) (SBA) (02/26/24 1600) Gait Quality (General): Slowed;Shuffling;Unsteady (02/26/24 1600) Gait Quality (Right side): Decreased push-off (02/26/24 1600) Stairs Number of Steps: 8 (02/26/24 1600) Stair Rails: Left rail (up and down backwards) (02/26/24 1600) Stairs : Minimal assist (with family) (02/26/24 1600) Stairs Method: Bears weight through R LE;Bears weight through L LE;Descend step- to pattern;Ascend step-to pattern (02/26/24 1600) Assistive Devices Used: None;Front wheeled walker (going backwards up one step then sitting on a chair.) (02/25/24 1200) Equipment Status: Patient will provide own equipment (02/26/24 1600) Front wheeled walker (02/26/24 1600) Status of progress toward established goals: Problem: Decreased Ambulatory Skills Goal: Improve gait Description: Ambulate 50 meters using Front - wheeled walker or LRAD with (6) Modified Independencein order to ambulate around her home by 03/04/24. Outcome: Met Problem: Decreased Ambulatory Skills Goal: Improve gait on stairs Description: Ascend/descend 6 stairs using No assistive devices with (6) Modified [place] in order to get to the basement of the home by 03/04/24. Outcome: Discharged with plan in place Plan: Discharge to Home and Outpatient PT is recommended. Daughter picked up pediatric FWW from [facility]. Family training completed with daughter on how to assist with stairs. Physical Therapist: Rebecca Rodarte, PT, DPT Date: 02/26/2024 Pager: Tiffany PT Department * Discharge non-MD/non-NANCY Gavin - Allie Martin PT - 02/26/2024 3:55 PM CDT Care Coordination Discharge Note Patient Name: Alondra Aguilar Date: 02/26/2024 Expected DC Date: 02/26/2024 Expected DC Time: Patient Family Goals Patient's Discharge Goal: She wants to be able to not have pain when she goes home. She wants to beable to do everything on her own. Family's Discharge Goal: Not present Final Discharge Destination: [address] [place] [phone] Summary of pertinent information: Pt will be discharging home to her house where she lives with jessica, and Fabiola will be providing transportation. OP PT here at the [facility]. SW FIM complete. Allie Martin, PT, 02/26/2024 3:55 PM * Nursing Assessment - Lakshmi Castro RN - 02/26/2024 2:29 PM CDT Nursing Assessment Head to Toe Head to Toe Assessment Shift Summary Neurologic/Cognitive Within Defined Limits HEENT Assessment Within Defined Limits except for: Teeth Symptoms: Dental appliance Comments: Dentures Cardiac Within Defined Limits Respiratory Within defined limits Neurovascular Within Defined Limits Gastrointestinal Within Defined Limits Stool (unmeasured): 1 (02/19/24 0530) Stool Amount: moderate (02/24/24 0515) Stool Color: light brown (02/24/24 0515) Stool Consistency: soft (02/24/24 0515) Genitourinary Within Defined Limits Musculoskeletal Assessment Within Defined Limits except for: Musculoskeletal Assessment: General Mobility: Generalized weakness Comments: TLSO and walker Integumentary Assessment Within Defined Limits except for: Skin Assessment Integrity - see Avatar LDA documentation Patient Lines/Drains/Airways Status Active LDAs Name Placement date Placement time Site Days Wound 02/10/24 Incision Back 02/10/24 0803 Back 16 Wound 02/11/24 Skin Tear Elbow Anterior;Right 02/11/24 0630 Elbow 15 Wound 02/16/24 Blister Buttock Right;Posterior 02/16/24 1300 Buttock 10 Wound 02/16/24 Skin Tear Buttock Left 02/16/24 1400 Buttock 10 Wound 02/17/24 Blister Back Lower;Right 02/17/24 1521 Back 8 Psychosocial Within Defined Limits Psychosocial Assessment: Observed Patient Behaviors: Pleasant * Nursing Assessment - Nella Correa RN - 02/26/2024 4:39 AM CDT Nursing Assessment Head to Toe Head to Toe Assessment Shift Summary Pt AAOx3. Denies pain or discomfort. No SOB or respiratory distress noted. Pt asleep during most ofthe night. Safety and skin precautions maintained. Will continue with POC. Neurologic/Cognitive Within Defined Limits HEENT Assessment Within Defined Limits except for: Teeth Symptoms: Dental appliance Cardiac Within Defined Limits Respiratory Within defined limits Neurovascular Within Defined Limits Gastrointestinal Within Defined Limits Stool (unmeasured): 1 (02/19/24 0530) Stool Amount: moderate (02/24/24 0515) Stool Color: light brown (02/24/24 0515) Stool Consistency: soft (02/24/24 0515) Genitourinary Within Defined Limits Musculoskeletal Assessment Within Defined Limits except for: Musculoskeletal Assessment: General Mobility: Mildly impaired Comments: TLSO brace and walker Integumentary Assessment Within Defined Limits except for: Skin Assessment Integrity - see Avatar LDA documentation Patient Lines/Drains/Airways Status Active LDAs Name Placement date Placement time Site Days Wound 02/10/24 Incision Back 02/10/24 0803 Back 15 Wound 02/11/24 Skin Tear Elbow Anterior;Right 02/11/24 0630 Elbow 14 Wound 02/16/24 Blister Buttock Right;Posterior 02/16/24 1300 Buttock 9 Wound 02/16/24 Skin Tear Buttock Left 02/16/24 1400 Buttock 9 Wound 02/17/24 Blister Back Lower;Right 02/17/24 1521 Back 8 Psychosocial Within Defined Limits * Nursing Assessment - David Solano RN - 02/25/2024 10:28 PM CDT Nursing Assessment Head to Toe Head to Toe Assessment Shift Summary Shift Summary: Pt A&Ox4. Requires utilization coordinator. Independent in the room with walker and TLSO. Pt looking forward to d/c tomorrow. Call light wthin reach, calls appropriately. David Solano RN, 02/25/2024 10:30 PM Bowel Management Last Bowel Movement: 02/25/2024 Continent without assist - no plan needed Bladder Management Continent without assist - no plan needed Timed Toileting Plan No plan needed-pt is independent Medication Converse Dependent Wound Care Foam dressing on blisters. Incision open to air and aquaphor ordered for dryness. Behavior Management No behavior issues identified - no plan needed Nursing Barriers Wound Care Neurologic/Cognitive Within Defined Limits HEENT Assessment Within Defined Limits except for: Teeth Symptoms: Dental appliance Comments: Dentures Cardiac Within Defined Limits Respiratory Within defined limits Neurovascular Within Defined Limits Gastrointestinal Within Defined Limits Stool (unmeasured): 1 (02/19/24 0530) Stool Amount: moderate (02/24/24 0515) Stool Color: light brown (02/24/24 0515) Stool Consistency: soft (02/24/24 0515) Genitourinary Within Defined Limits Musculoskeletal Assessment Within Defined Limits except for: Musculoskeletal Assessment: General Mobility: Generalized weakness Comments: TLSO and walker Integumentary Assessment Within Defined Limits except for: Skin Assessment Integrity - see Avatar LDA documentation Patient Lines/Drains/Airways Status Active LDAs Name Placement date Placement time Site Days Wound 02/10/24 Incision Back 02/10/24 0803 Back 15 Wound 02/11/24 Skin Tear Elbow Anterior;Right 02/11/24 0630 Elbow 14 Wound 02/16/24 Blister Buttock Right;Posterior 02/16/24 1300 Buttock 9 Wound 02/16/24 Skin Tear Buttock Left 02/16/24 1400 Buttock 9 Wound 02/17/24 Blister Back Lower;Right 02/17/24 1521 Back 8 Psychosocial Within Defined Limits Psychosocial Assessment: Observed Patient Behaviors: Pleasant * Discharge non-MD/non-NANCY Summaries - Landy Pineda OTR/Jordon - 02/25/2024 2:58 PM CDT [facility] Occupational Therapy Discharge Summary 02/25/2024 OT Discharge Recommendations Discharge Recommendations: If supervision/assistance is available, safe to discharge to home/community/prior residence. (*per pt daughter will stay with her to ensure a safe transition back home) Supervision / Assistance Recommended for home DC: Yes Physical assistance recommended for (OT): Bathing;Meal preparation;Transportation;Laundry Post Discharge Follow-up: No OT follow-up needs after discharge Equipment Recommended: Shower chair with back. Long shoe horn, security system analyst, leg intake clerk, sock aid Equipment Status: Patient/caregivers lack resources to access equipment ([employer] has been contacted for donation - they are donating shower chair with back - family has already picked up the small walker and the shower chair with back) *OT department provided leg intake clerk, long shoe horn, sock aid and security system analyst Plan: DC Inpatient OT as pt is discharging home with A from family Patient Name: Alondra Aguilar MR#: [id number] Date of : 1950 Age: 73 y.o. [facility] Admission Date: 02/17/2024 Restrictions / Precautions at Discharge: Activity Level: Up Ad [place] (02/19/24 1000) Spinal Precautions: TLSO - OK to don in sitting (needs to stand to fit for brace. No lifittng more than # 10) (02/19/24 1000) Complies w/ Precautions?: Yes (02/25/24 1100) Current Medical History / Hospital Course: See MD DENG summary for details. Patient Active Problem List Diagnosis Cancer screening Scoliosis of lumbar spine Arthralgia of both hands Lumbar radiculopathy Cervical radiculopathy Essential hypertension Scoliosis of lumbar spine, unspecified scoliosis type Past Medical History: No past medical history on file. Living Situation/Social History: Information obtained From: patient;chart (02/18/24 1000) Help Available at home: yes, but not 24 hour (Lives with daughter who works during the day in the basement of a house. Another daughter with her and 5 y.o girl lives upstairs of the house.) (02/18/24 1000) Patient is living in a/an : house (02/18/24 1000) Stairs Required to enter the home: yes (02/18/24 1000) Stairs required once inside the home: yes (02/18/24 1000) Bathroom set up: walk in shower (02/18/24 1000) Patient Serves as a primary caregiver: for grandchild / grandchildren (However, will not be taking care of grand daughter. Grand daughter is going to day care while she is recovering.) (02/18/24 1000) Vocation Status: retired (02/18/24 1000) Transportation: at baseline patient: pt does not drive (02/18/24 1000) Mobility equipment currently available/used: none (02/18/24 1000) ADL Equipment currently available/used: none (02/18/24 1000) Prior Level of Function (SERVICE REPRESENTATIVE): ADLs/IADLs: No assistance required (Independent or modified independent) (02/18/24 1000) Functional Mobility: Independent in the home without assistive device (02/18/24 1000) Functional Status at Discharge: Activities of Daily Living (ADL???s) Grooming: Modified independence (02/25/241099) Grooming Comments: standing at sink (02/20/24 1200) Toileting: Modified independence (02/25/241099) Toileting Comments: including wiping using toilet tongues, and managing clothing (02/25/241099) Bathing: Minimal assist (75% patient effort) (02/25/241099) Bathing Comments: using shower chair and hand held shower head (02/25/241099) Upper Body Dressing: Supervision/Stand by assist;Verbal cues;Modified independence (02/25/241099) Upper Body Dressing Comments: to doff/don shirt underneath brace, to don/doff TLSO and to don/doff shirt on top of brace with increased time (02/25/241099) Upper Body Dressing Techniques & Equipment: Patient Ed (02/19/24 1000) Lower Body Dressing: Supervision/Stand by assist;Verbal cues;Modified independence (02/25/241099) Lower Body Dressing Comments: to doff/don underwear, shorts, socks and shoes using AE. (02/25/24 1100) Lower Body Dressing Techniques & Equipment: Patient Ed (02/25/241099) Instrumental Activities of Daily Living (IADL???s) Able to prepare a small meal using pediatric walker safely Functional Mobility Supine to/from Sit: Modified independence (02/25/241099) Sit to/from Stand : Modified independence (02/25/241099) Sit to/from Stand - Method: w/ Assistive device (02/25/241099) Bed to/from Chair: Modified independence (02/25/241099) Bed to/from Chair - Method: Standing pivot w/ AD;From standard seat height (02/25/24 1100) Bed to/from W/C: Modified independence (02/25/24 1100) Bed to/from W/C - Method: Standing pivot w/ assistive device (02/25/24 1100) Toilet Transfer: Modified independence (02/25/241099) Toilet Transfer- Method: Grab bar (02/25/24 1100) Tub Transfer: Supervision/Stand by assist (02/25/241099) Tub Transfer- Method: Grab bar(s);Shower chair (02/25/24 1100) Bed to Bathroom: Modified independence (02/25/241099) Bed to Bathroom- Method: Front wheeled walker (02/25/24 1100) Functional Mobility in Room- Task Done: pt ambulates from room to dynavision room and back (02/22/24 1200) Functional Mobility in Room: Supervision/Stand by assist (02/22/24 1200) Functional Mobility in Room- Method: Front wheeled walker (02/22/241199) Motor / Splints: Has been gradually increasing activity/standing tolerance and functional mobility for ADL. Cognition Mental Status: Alert;Cooperative;Follows 2 step directions (02/25/24 1100) Needs occasionally reminders Delirium Assessment - CAM Short (Confusion Assessment Method) Acute onset OR fluctuating course: No (02/20/24 1200) Inattention: No (02/20/24 1200) Disorganized Thinking: No (02/20/24 1200) Altered level of consciousness: No (02/20/24 1200) CAM result: Negative (02/20/24 1200) Patient / Caregiver Training: Caregiver Training Status (OT): Not yet attempted (02/18/24 1000) Caregiver Training Comments (OT): . (02/25/24 1100) Progress during rehab stay: See Care Plan for progress towards goals. Additional Comments: Supportive family. Occupational Therapist: Judy Yang OTR/Jordon OT Department * Nursing Assessment - aMrcy Stafford RN - 02/25/2024 12:31 PM CDT Nursing Assessment Head to Toe Head to Toe Assessment Shift Summary Shift Summary: Pt A&Ox4. Pt requires industrial diamond polisher. Independent in the room with walker and TLSO. Pt slept better last night with scheduled trazadone and eggcrate mattress pad. Pain controlled with tylenol and PRN oxycodone. Pt showered with OT. Discharging tomorrow. Marcy Stafford RN, 02/25/2024 2:57 PM Bowel Management Last Bowel Movement: Continent without assist - no plan needed Bladder Management Continent without assist - no plan needed Timed Toileting Plan No plan needed Medication Converse Dependent Wound Care Foam dressing on blisters. Incision open to air and aquaphor ordered for dryness. Behavior Management No behavior issues identified - no plan needed Nursing Barriers Wound Care Neurologic/Cognitive Within Defined Limits HEENT Assessment Within Defined Limits except for: Teeth Symptoms: Dental appliance Comments: Dentures Cardiac Within Defined Limits Respiratory Within defined limits Neurovascular Within Defined Limits Gastrointestinal Within Defined Limits Stool (unmeasured): 1 (02/19/24 0530) Stool Amount: moderate (02/24/24 0515) Stool Color: light brown (02/24/24 0515) Stool Consistency: soft (02/24/24 0515) Genitourinary Within Defined Limits Musculoskeletal Assessment Within Defined Limits except for: Musculoskeletal Assessment: General Mobility: Generalized weakness Comments: TLSO and walker Integumentary Assessment Within Defined Limits except for: Skin Assessment Integrity - see Avatar LDA documentation Patient Lines/Drains/Airways Status Active LDAs Name Placement date Placement time Site Days Wound 02/10/24 Incision Back 02/10/24 0803 Back 15 Wound 02/11/24 Skin Tear Elbow Anterior;Right 02/11/24 0630 Elbow 14 Wound 02/16/24 Blister Buttock Right;Posterior 02/16/24 1300 Buttock 8 Wound 02/16/24 Skin Tear Buttock Left 02/16/24 1400 Buttock 8 Wound 02/17/24 Blister Back Lower;Right 02/17/24 1521 Back 7 Psychosocial Within Defined Limits Psychosocial Assessment: Observed Patient Behaviors: Pleasant * Nursing Assessment - Leonor Foreman RN - 02/25/2024 1:15 AM CDT Nursing Assessment Head to Toe Head to Toe Assessment Shift Summary A/Ox4, VSS on RA. Algerian speaking. Pt endorsed mild pain, declined prns. Pt denies n/v, dizziness,numbness tingling and SOB breathing unlabored on RA. SBA with walker. Continent of bowel and bladder. Incision on the back open to air, CDI. TLSO OOB & HOB >30, Call light within reach. Neurologic/Cognitive Within Defined Limits HEENT Within Defined Limits Cardiac Within Defined Limits Respiratory Within defined limits Neurovascular Within Defined Limits Gastrointestinal Within Defined Limits Stool (unmeasured): 1 (02/19/24 0530) Stool Amount: moderate (02/24/24 0515) Stool Color: light brown (02/24/24 0515) Stool Consistency: soft (02/24/24 0515) Genitourinary Within Defined Limits Musculoskeletal Assessment Within Defined Limits except for: Musculoskeletal Assessment: General Mobility: Mildly impaired Comments: Pain in left leg Integumentary Assessment Within Defined Limits except for: Skin Assessment Integrity - see Avatar LDA documentation Patient Lines/Drains/Airways Status Active LDAs Name Placement date Placement time Site Days Wound 02/10/24 Incision Back 02/10/24 0803 Back 14 Wound 02/11/24 Skin Tear Elbow Anterior;Right 02/11/24 0630 Elbow 13 Wound 02/16/24 Blister Buttock Right;Posterior 02/16/24 1300 Buttock 8 Wound 02/16/24 Skin Tear Buttock Left 02/16/24 1400 Buttock 8 Wound 02/17/24 Blister Back Lower;Right 02/17/24 1521 Back 7 Psychosocial Within Defined Limits Psychosocial Assessment: Observed Patient Behaviors: Pleasant Verbalized Emotional State: Acceptance * Nursing Assessment - Bradley Cordova, IRVING - 02/24/2024 8:36 PM CDT Nursing Assessment Head to Toe Head to Toe Assessment Shift Summary Patient is alert and oriented x 4, no signs of respiratory distress noted. Denies any SOB or pain. Modified independent with walker. TLSO with transfers and mobility. Ate well at supper. Daughter visited this shift. Independent in room during the day. Pleasant personality. Will continue to monitor and update with any changes. BP 122/40 (Cuff Location: Left Arm) Pulse 91 Temp 36.3 ??C (97.3 ??F) (Temporal) Resp 18 Ht1.27 m (4' 2) Wt 49.6 kg (109 lb 5.6 oz) SpO2 97% BMI 30.75 kg/m?? Bradley Cordova RN, 02/24/2024 8:38 PM Bowel Management Last Bowel Movement: 02/24/24 Continent with assist - current bowel management plan: PO medication Education provided - during this shift, needs reinforcement Bladder Management Continent with assist - current bladder management plan: No plan needed Education provided - during this shift, demonstrates understanding Timed Toileting Plan No plan needed Medication Converse Dependent Wound Care DIRECTOR COUNSELING [employer]UREAU Behavior Management No behavior issues identified - no plan needed Nursing Barriers Change in condition. Bradley Cordova RN, 02/24/2024 8:40 PM Neurologic/Cognitive Within Defined Limits HEENT Within Defined Limits Cardiac Within Defined Limits Respiratory Within defined limits Neurovascular Within Defined Limits Gastrointestinal Within Defined Limits Stool (unmeasured): 1 (02/19/24 0530) Stool Amount: moderate (02/24/24 0515) Stool Color: light brown (02/24/24 0515) Stool Consistency: soft (02/24/24 0515) Genitourinary Within Defined Limits Musculoskeletal Assessment Within Defined Limits except for: Musculoskeletal Assessment: General Mobility: Mildly impaired Comments: Pain in left leg Integumentary Assessment Within Defined Limits except for: Skin Assessment Integrity - see Avatar LDA documentation Patient Lines/Drains/Airways Status Active LDAs Name Placement date Placement time Site Days Wound 02/10/24 Incision Back 02/10/24 0803 Back 14 Wound 02/11/24 Skin Tear Elbow Anterior;Right 02/11/24 0630 Elbow 13 Wound 02/16/24 Blister Buttock Right;Posterior 02/16/24 1300 Buttock 8 Wound 02/16/24 Skin Tear Buttock Left 02/16/24 1400 Buttock 8 Wound 02/17/24 Blister Back Lower;Right 02/17/24 1521 Back 7 Psychosocial Within Defined Limits Psychosocial Assessment: Observed Patient Behaviors: Pleasant Verbalized Emotional State: Acceptance * Nursing Assessment - Marcy Stafford RN - 02/24/2024 1:31 PM CDT Nursing Assessment Head to Toe Head to Toe Assessment Shift Summary Pt A&Ox4. Requires industrial diamond polisher. Continent of B&B. Modified independent with use of walker and TLSO at bedside. Pain controlled with scheduled and PRN medications. Last BM 02/24/2024. Changed dressings on back wounds. Complained of difficulty staying asleep, ordered eggcrate mattress pad. Provider ordered trazadone. Interdisciplinary rounds completed today with intentions to discharge 02/26/2024. Marcy Stafford RN, 02/24/2024 3:36 PM Neurologic/Cognitive Within Defined Limits HEENT Within Defined Limits Cardiac Within Defined Limits Respiratory Within defined limits Neurovascular Within Defined Limits Gastrointestinal Within Defined Limits Stool (unmeasured): 1 (02/19/24 0530) Stool Amount: moderate (02/24/24 0515) Stool Color: light brown (02/24/24 0515) Stool Consistency: soft (02/24/24 0515) Genitourinary Within Defined Limits Musculoskeletal Assessment Within Defined Limits except for: Musculoskeletal Assessment: General Mobility: Mildly impaired Comments: Pain in left leg Integumentary Assessment Within Defined Limits except for: Skin Assessment Integrity - see Avatar LDA documentation Patient Lines/Drains/Airways Status Active LDAs Name Placement date Placement time Site Days Wound 02/10/24 Incision Back 02/10/24 0803 Back 14 Wound 02/11/24 Skin Tear Elbow Anterior;Right 02/11/24 0630 Elbow 13 Wound 02/16/24 Blister Buttock Right;Posterior 02/16/24 1300 Buttock 8 Wound 02/16/24 Skin Tear Buttock Left 02/16/24 1400 Buttock 7 Wound 02/17/24 Blister Back Lower;Right 02/17/24 1521 Back 6 Psychosocial Within Defined Limits Psychosocial Assessment: Observed Patient Behaviors: Pleasant Verbalized Emotional State: Acceptance * Interdisciplinary Note - Terry Swenson - 02/24/2024 11:54 AM CDT [facility] 02/24/2024 Alondra Aguilar Patient Active Problem List Diagnosis Cancer screening Scoliosis of lumbar spine Arthralgia of both hands Lumbar radiculopathy Cervical radiculopathy Essential hypertension Scoliosis of lumbar spine, unspecified scoliosis type Physician present and directed rounds: Dr. Chandler Zuniga DO. Dr. Bryce Bonilla DO Other team participants: Burial Vault Deliverer And Installer: Allie Martin PT Speech Language Pathology; Niru Ramirez CCC-AFTER SCHOOL PROGRAM TEACHER and Elena Angel CCC-AFTER SCHOOL PROGRAM TEACHER Occupational Therapy; Rebecca Allred OTR/L and Landy Pineda OTR/L Physical Therapy; Rebecca Rodarte PT, DPT Registered Nurse; Dante Ojeda RN and Delbert Abraham RN. Marcy Stafford RN. Clinical Psychology; Dr. Mary Lind Psy. Clin Tech; Daniel LYONS;Amelia Ascencio * Interdisciplinary Note - Chandler Zuniga DO - 02/24/2024 11:45 AM CDT PM&R Team Meeting 02/24/2024 Patient name: Alondra Aguilar : 1950 Age: 73 y.o. Hospital Admit date: 02/17/2024 Rehab diagnosis: orthopedic disorders: other orthopedic Current Status / Updates Provider Medical Update: Pt is medically appropriate to continue the comprehensive inpatient rehab program. The investor relations associate is currently managing pain, VTE proph. Current scope of Services Recommended: Appropriate for continued PT 1.5 hour/day, 5 days/week Appropriate for continued OT 1.5 hour/day, 5 days/week Case Management Updates: Her daughter contacted [facility], but they have yet to follow-up. Will touch base with [facility] again this afternoon and see if they have gotten that equipment. (02/24/24 1100) Mobility (PT): On track for discharge. Just waiting to hear back from [facility] on equipment. OP PT at discharge. (02/24/24 0800) PT Discharge Recommendations: Safety risk for discharge home today. PT Post Discharge Follow-up: Outpatient PT recommended * PT Progress towards interdisciplinary DC Plan: On track for current DC plan from PT standpoint (02/23/24 1330) Self-Care / Cognition / Visual Perception (OT): Motivated, needs overall Min/Mod A of 1 for ADL. Barrier to d/c: Needs to be independent for ADL asshe would be alone during the day. Anticip[facility] Will order a shower chair with back. No outpatient OT (02/18/24 1000) OT Discharge Recommendations: Safety risk for discharge to home today. Barriers to Discharge (OT): Motor / physical impairments pose safety risk OT Post Discharge Follow-up: (*) (TBD) OT Supervision / Assistance Recommended (for home DC): Supervision / Assistance recommended for Home DC (OT): Yes Physical assistance recommended for (OT): Upper body dressing;Lower body dressing;Bathing;Meal preparation;Transportation OT Progress towards interdisciplinary DC Plan: Interdisciplinary DC plan not yet set - OT ELOS is (*). (~ 10 to 14 days from admission) (02/18/24 1000) Communication / Speech / Swallow / Cognition (AFTER SCHOOL PROGRAM TEACHER): AFTER SCHOOL PROGRAM TEACHER Discharge Recommendations: AFTER SCHOOL PROGRAM TEACHER Post Discharge Follow-up: AFTER SCHOOL PROGRAM TEACHER Supervision Recommended: AFTER SCHOOL PROGRAM TEACHER Progress towards interdisciplinary DC Plan: Cognitive (Neuropsychology): Adjustment (Psychology): Nursing Update: Continent of bowel/bladder Incision c/d/I Med education prior to DC with family and patient Blister education with family prior to DC. - just mepilex Barriers / Team Problem Solving / Current DC Plan Barriers to Discharge: AFTER SCHOOL PROGRAM TEACHER Learning Barriers: AFTER SCHOOL PROGRAM TEACHER Discharge Barriers: PT Discharge Barriers: Pain;Caregiver support/supervision insufficient;High falls risk;Motor / physical impairments pose safety risk (02/23/24 1330) OT Discharge Barriers: Motor / physical impairments pose safety risk (02/23/24 1200) Anticipated DC Date: 02/26/24 Expected Discharge Disposition: Home or Self Care Anticipated DME / AE needs at DC: PT Equipment Recommended: Front wheeled walker (02/23/24 1330) PT Equipment Status: Equipment needs being determined (02/23/24 1330) OT Equipment Recommended: Shower chair with back (02/23/24 1200) OT Equipment Status: Patient/caregivers lack resources to access equipment ([facility] has been contacted for donation - watiing for answer) (02/23/24 1200) Anticipated Therapy needs at DC: PT (at [facility]) (02/24/24 1100) Decision maker: Self (02/24/24 1100) By signing this document the rehab physician attests that they led the interdisciplinary team meeting and concur with all decisions and recommendations made by the team during this interdisciplinary individualized overall plan of care meeting. Chandler Zuniga DO, 02/24/2024 11:47 AM Physical Medicine & Rehabilitation * Nursing Assessment - Tessy Hollins RN - 02/24/2024 6:37 AM CDT Nursing Assessment Head to Toe Head to Toe Assessment Shift Summary A/Ox4, VSS on RA. Algerian speaking. Pt denies pain and SOB. SBA with walker. Continent of bowel andbladder. Incision on the back open to air, CDI. Bed alarm on for safety. Resting with respirations even an unlabored. Call light within reach. Plan of care ongoing. Tessy Hollins, RN, 02/24/2024 6:37 AM Neurologic/Cognitive Within Defined Limits HEENT Within Defined Limits Cardiac Within Defined Limits Respiratory Within defined limits Neurovascular Within Defined Limits Gastrointestinal Within Defined Limits Stool (unmeasured): 1 (02/19/24 0530) Stool Amount: moderate (02/23/24 2100) Stool Color: brown (02/23/24 2100) Stool Consistency: formed (02/23/24 2100) Genitourinary Within Defined Limits Musculoskeletal Assessment Within Defined Limits except for: Musculoskeletal Assessment: General Mobility: Generalized weakness Range of Motion: LLE - mildly impaired RLE - mildly impaired Integumentary Assessment Within Defined Limits except for: Skin Assessment Integrity - see Avatar LDA documentation Patient Lines/Drains/Airways Status Active LDAs Name Placement date Placement time Site Days Wound 02/10/24 Incision Back 02/10/24 0803 Back 13 Wound 02/11/24 Skin Tear Elbow Anterior;Right 02/11/24 0630 Elbow 12 Wound 02/16/24 Blister Buttock Right;Posterior 02/16/24 1300 Buttock 7 Wound 02/16/24 Skin Tear Buttock Left 02/16/24 1400 Buttock 7 Wound 02/17/24 Blister Back Lower;Right 02/17/24 1521 Back 6 Psychosocial Psychosocial * Nursing Assessment - Bradley Cordova RN - 02/23/2024 9:26 PM CDT Nursing Assessment Head to Toe Head to Toe Assessment Shift Summary Patient is alert and oriented x 4, no signs of respiratory distress noted. Continues to require assistance of once with walker. TLSO with transfers and mobility. Ate well at supper. Took medications whole with water and without difficulty. Daughter visited this shift. Independent in room during theday. Pleasant personality. Will continue to monitor and update with any changes. BP 117/55 (Cuff Location: Right Arm) Pulse 93 Temp 36.7 ??C (98.1 ??F) (Tympanic) Resp 16 Ht 1.27 m (4' 2) Wt 49.6 kg (109 lb 5.6 oz) SpO2 95% BMI 30.75 kg/m?? Bowel Management Last Bowel Movement: 02/21/2024 Continent without assist - no plan needed Bladder Management Continent without assist - no plan needed Timed Toileting Plan No plan needed Medication Converse Dependent Wound Care Incision on the back; Blister on the right buttock, open areas on the back and left buttock Behavior Management No behavior issues identified - no plan needed Nursing Barriers Fall risk/Language Barrier Bradley Cordova RN, 02/23/2024 9:30 PM Neurologic/Cognitive Within Defined Limits HEENT Within Defined Limits Cardiac Within Defined Limits Respiratory Within defined limits Neurovascular Assessment Within Defined Limits except for: Neurovascular RLE Sensation: Pins and needles Comments: On rt big toe Gastrointestinal Within Defined Limits Stool (unmeasured): 1 (02/19/24 0530) Stool Amount: small (02/20/24 1223) Stool Color: brown (02/20/24 1223) Stool Consistency: soft (02/20/24 1223) Genitourinary Assessment Within Defined Limits except for: Voiding: Voiding without difficulty Musculoskeletal Assessment Within Defined Limits except for: Musculoskeletal Assessment: General Mobility: Generalized weakness Range of Motion: LLE - mildly impaired RLE - mildly impaired Integumentary Assessment Within Defined Limits except for: Skin Assessment Integrity - see Avatar LDA documentation Patient Lines/Drains/Airways Status Active LDAs Name Placement date Placement time Site Days Wound 02/10/24 Incision Back 02/10/24 0803 Back 13 Wound 02/11/24 Skin Tear Elbow Anterior;Right 02/11/24 0630 Elbow 12 Wound 02/16/24 Blister Buttock Right;Posterior 02/16/24 1300 Buttock 7 Wound 02/16/24 Skin Tear Buttock Left 02/16/24 1400 Buttock 7 Wound 02/17/24 Blister Back Lower;Right 02/17/24 1521 Back 6 Psychosocial Within Defined Limits * Nursing Assessment - Sonal Landeros RN - 02/23/2024 1:12 PM CDT Nursing Assessment Head to Toe Head to Toe Assessment Shift Summary Shift Summary: Pt is A&O x4, lebanese speaking, project superintendent was used. Assist of one with walker,wears TLSO at bedside. Shower with OT, dressing changed afterwards. Tylenol scheduled and oxycodone5 mg administered, pain relief. Continue to monitor. Sonal Landeros RN, 02/23/2024 1:12 PM Bowel Management Last Bowel Movement: 02/21/2024 Continent without assist - no plan needed Bladder Management Continent without assist - no plan needed Timed Toileting Plan No plan needed Medication Converse Dependent Wound Care Incision on the back; Blister on the right buttock, open areas on the back and left buttock Behavior Management No behavior issues identified - no plan needed Nursing Barriers Fall risk Neurologic/Cognitive Within Defined Limits HEENT Within Defined Limits Cardiac Within Defined Limits Respiratory Within defined limits Neurovascular Assessment Within Defined Limits except for: Neurovascular RLE Sensation: Pins and needles Comments: On rt big toe Gastrointestinal Within Defined Limits Stool (unmeasured): 1 (02/19/24 0530) Stool Amount: small (02/20/24 1223) Stool Color: brown (02/20/24 1223) Stool Consistency: soft (02/20/24 1223) Genitourinary Assessment Within Defined Limits except for: Voiding: Voiding without difficulty Musculoskeletal Assessment Within Defined Limits except for: Musculoskeletal Assessment: General Mobility: Generalized weakness Range of Motion: LLE - mildly impaired RLE - mildly impaired Integumentary Assessment Within Defined Limits except for: Skin Assessment Integrity - see Avatar LDA documentation Patient Lines/Drains/Airways Status Active LDAs Name Placement date Placement time Site Days Wound 02/10/24 Incision Back 02/10/24 0803 Back 13 Wound 02/11/24 Skin Tear Elbow Anterior;Right 02/11/24 0630 Elbow 12 Wound 02/16/24 Blister Buttock Right;Posterior 02/16/24 1300 Buttock 7 Wound 02/16/24 Skin Tear Buttock Left 02/16/24 1400 Buttock 6 Wound 02/17/24 Blister Back Lower;Right 02/17/24 1521 Back 5 Psychosocial Within Defined Limits * Nursing Assessment - Germaine Hicks RN - 02/23/2024 3:14 AM CDT Nursing Assessment Head to Toe Head to Toe Assessment Shift Summary Shift Summary: Pt is Algerian speaking patient here following spinal fusion surgery. She is able to don/doff TLSO with minimal assistance. Used video project superintendent to communicate with patient during the evening. Endorsed back pain she rated at a 4 on 1/10 scale. Requested 5 mg prn oxycodone with her scheduled Tylenol. Reported relief. Has not asked for pain medication on hourly shift manager thus far.Pt is independent during the day using a front-wheeled walker. Using call light appropriately. Continue to monitor. Plan of care. Bowel Management Last Bowel Movement: 02/21/24 Continent without assist - no plan needed Bladder Management Continent without assist - no plan needed Timed Toileting Plan No plan needed Medication Converse Dependent Wound Care Not Applicable Behavior Management No behavior issues identified - no plan needed Nursing Barriers TLSO Neurologic/Cognitive Within Defined Limits HEENT Within Defined Limits Cardiac Within Defined Limits Respiratory Within defined limits Neurovascular Within Defined Limits Gastrointestinal Within Defined Limits Stool (unmeasured): 1 (02/19/24 0530) Stool Amount: small (02/20/24 1223) Stool Color: brown (02/20/24 1223) Stool Consistency: soft (02/20/24 1223) Genitourinary Within Defined Limits Musculoskeletal Assessment Within Defined Limits except for: Musculoskeletal Assessment: General Mobility: Generalized weakness Integumentary Assessment Within Defined Limits except for: Skin Assessment Integrity - see Avatar LDA documentation Comments: Incision Patient Lines/Drains/Airways Status Active LDAs Name Placement date Placement time Site Days Wound 02/10/24 Incision Back 02/10/24 0803 Back 12 Wound 02/11/24 Skin Tear Elbow Anterior;Right 02/11/24 0630 Elbow 11 Wound 02/16/24 Blister Buttock Right;Posterior 02/16/24 1300 Buttock 6 Wound 02/16/24 Skin Tear Buttock Left 02/16/24 1400 Buttock 6 Wound 02/17/24 Blister Back Lower;Right 02/17/24 1521 Back 5 Psychosocial Within Defined Limits * Nursing Assessment - David Carpio RN - 02/22/2024 7:05 PM CDT Nursing Assessment Head to Toe Head to Toe Assessment Shift Summary Shift Summary: Patient is alert and oriented, makes need known. DON TLSO on edge of bed. Continent of bowel and bladder. Incision dry and intact, open to air. Independent in the room with FWW (blue dot). Good appetite, able to feed self. Call light within reach. David Carpio RN, 02/22/2024 7:15 PM Bowel Management Last Bowel Movement: 02/21/2024 per pt Continent without assist - no plan needed Bladder Management Continent without assist - no plan needed Timed Toileting Plan No plan needed Medication Converse Dependent Wound Care Incision/wounds Behavior Management No behavior issues identified - no plan needed Nursing Barriers Fall risk, infection risk Neurologic/Cognitive Within Defined Limits HEENT Within Defined Limits Cardiac Within Defined Limits Respiratory Within defined limits Neurovascular Within Defined Limits Gastrointestinal Within Defined Limits Comments: Continent with bowel Stool (unmeasured): 1 (02/19/24 0530) Stool Amount: small (02/20/24 1223) Stool Color: brown (02/20/24 1223) Stool Consistency: soft (02/20/24 1223) Genitourinary Within Defined Limits Comments: Voiding without difficulty Musculoskeletal Assessment Within Defined Limits except for: Musculoskeletal Assessment: General Mobility: Generalized weakness and mildly impaired Comments: TLSO Don at edge of bed Integumentary Assessment Within Defined Limits except for: Skin Assessment Integrity - see Avatar LDA documentation Patient Lines/Drains/Airways Status Active LDAs Name Placement date Placement time Site Days Wound 02/10/24 Incision Back 02/10/24 0803 Back 12 Wound 02/11/24 Skin Tear Elbow Anterior;Right 02/11/24 0630 Elbow 11 Wound 02/16/24 Blister Buttock Right;Posterior 02/16/24 1300 Buttock 6 Wound 02/16/24 Skin Tear Buttock Left 02/16/24 1400 Buttock 6 Wound 02/17/24 Blister Back Lower;Right 02/17/24 1521 Back 5 Psychosocial Within Defined Limits * Nursing Assessment - David Carpio RN - 02/22/2024 10:11 AM CDT Nursing Assessment Head to Toe Head to Toe Assessment Shift Summary Shift Summary: Patient is alert and oriented, makes need known. DON TLSO on edge of bed. Continent of bowel and bladder. Administered PRN pain meds per pt request. Reported effective on reassessment. Incision dry and intact, open to air. Dressing changed. Shower done with OT. Cleared today by PT OK to be independent in the room with FWW (blue dot). Good appetite, able to feed self. Call light within reach. David Carpio RN, 02/22/2024 12:56 PM/ Lynette/ IRVING Howell, 02/22/2024 12:56 PM Bowel Management Last Bowel Movement: 02/21/2024 per pt Continent without assist - no plan needed Bladder Management Continent without assist - no plan needed Timed Toileting Plan No plan needed Medication Converse Dependent Wound Care Incision/wounds Behavior Management No behavior issues identified - no plan needed Nursing Barriers Fall risk, infection risk Neurologic/Cognitive Within Defined Limits HEENT Within Defined Limits Cardiac Within Defined Limits Respiratory Within defined limits Neurovascular Within Defined Limits Gastrointestinal Within Defined Limits Comments: Continent with bowel Stool (unmeasured): 1 (02/19/24 0530) Stool Amount: small (02/20/24 1223) Stool Color: brown (02/20/24 1223) Stool Consistency: soft (02/20/24 1223) Genitourinary Within Defined Limits Comments: Voiding without difficulty Musculoskeletal Assessment Within Defined Limits except for: Musculoskeletal Assessment: General Mobility: Generalized weakness and mildly impaired Comments: TLSO Don at edge of bed Integumentary Assessment Within Defined Limits except for: Skin Assessment Integrity - see Avatar LDA documentation Patient Lines/Drains/Airways Status Active LDAs Name Placement date Placement time Site Days Wound 02/10/24 Incision Back 02/10/24 0803 Back 12 Wound 02/11/24 Skin Tear Elbow Anterior;Right 02/11/24 0630 Elbow 11 Wound 02/16/24 Blister Buttock Right;Posterior 02/16/24 1300 Buttock 5 Wound 02/16/24 Skin Tear Buttock Left 02/16/24 1400 Buttock 5 Wound 02/17/24 Blister Back Lower;Right 02/17/24 1521 Back 4 Psychosocial Within Defined Limits * Nursing Assessment - Karlene Verdin RN - 02/22/2024 6:39 AM CDT Nursing Assessment Head to Toe Head to Toe Assessment Shift Summary [id number] Pt alert, oriented, able to make needs known. Pt appeared sleeping on this shift with no new concern reported or noted. Oral hydration at bedside. Call light within reach. To continue plan of care. Neurologic/Cognitive Assessment Within Defined Limits except for: Mood/Behavior: Calm HEENT Within Defined Limits Cardiac Assessment Within Defined Limits except for: Chest Pain: No Novelty Maker - no Respiratory Assessment Within Defined Limits except for: Breath Sounds Normal: Yes Neurovascular Within Defined Limits Gastrointestinal Within Defined Limits Stool (unmeasured): 1 (02/19/24 0530) Stool Amount: small (02/20/24 1223) Stool Color: brown (02/20/24 1223) Stool Consistency: soft (02/20/24 1223) Genitourinary Within Defined Limits Musculoskeletal Assessment Within Defined Limits except for: Musculoskeletal Assessment: General Mobility: Mildly impaired Integumentary Assessment Within Defined Limits except for: Skin Assessment Integrity - see Avatar LDA documentation Patient Lines/Drains/Airways Status Active LDAs Name Placement date Placement time Site Days Wound 02/10/24 Incision Back 02/10/24 0803 Back 11 Wound 02/11/24 Skin Tear Elbow Anterior;Right 02/11/24 0630 Elbow 10 Wound 02/16/24 Blister Buttock Right;Posterior 02/16/24 1300 Buttock 5 Wound 02/16/24 Skin Tear Buttock Left 02/16/24 1400 Buttock 5 Wound 02/17/24 Blister Back Lower;Right 02/17/24 1521 Back 4 Psychosocial Assessment Within Defined Limits except for: Psychosocial Assessment: Family Behavior: not present * Nursing Assessment - Jeaneth Guillory RN - 02/21/2024 9:50 PM CDT Nursing Assessment Head to Toe Head to Toe Assessment Shift Summary Shift Summary: Patient alert and oriented x4. Algerian speaking. Able to make needs known. Uses call light appropriately. Assist of one with walker. Reported pain to back. Got PRN oxycodone and flexeril x1 and it was helpful. Wears TLSO. TLSO adjusted by baltazar this shift. On reg/ thin liquids diet. Ate 50% for dinner. Incision to back CDI and SHRUTHI. Continent of bowel and bladder. No BM this shift. Will continueto monitor. Jeaneth Guillory RN, 02/21/2024 9:51 PM Bowel Management Last Bowel Movement: 02/20/2024 Continent without assist - no plan needed Bladder Management Continent without assist - no plan needed Timed Toileting Plan No plan needed Medication Converse Dependent Wound Care Blisters to back Behavior Management No behavior issues identified - no plan needed Nursing Barriers none Neurologic/Cognitive Within Defined Limits HEENT Within Defined Limits Cardiac Within Defined Limits Respiratory Within defined limits Neurovascular Assessment Within Defined Limits except for: Neurovascular RLE Sensation: Pins and needles Comments: On rt big toe Gastrointestinal Within Defined Limits Stool (unmeasured): 1 (02/19/24 0530) Stool Amount: small (02/20/24 1223) Stool Color: brown (02/20/24 1223) Stool Consistency: soft (02/20/24 1223) Genitourinary Assessment Within Defined Limits except for: Voiding: Voiding without difficulty Musculoskeletal Assessment Within Defined Limits except for: Musculoskeletal Assessment: General Mobility: Generalized weakness Range of Motion: LLE - mildly impaired RLE - mildly impaired Integumentary Assessment Within Defined Limits except for: Skin Assessment Integrity - see Avatar LDA documentation Patient Lines/Drains/Airways Status Active LDAs Name Placement date Placement time Site Days Wound 02/10/24 Incision Back 02/10/24 0803 Back 11 Wound 02/11/24 Skin Tear Elbow Anterior;Right 02/11/24 0630 Elbow 10 Wound 02/16/24 Blister Buttock Right;Posterior 02/16/24 1300 Buttock 5 Wound 02/16/24 Skin Tear Buttock Left 02/16/24 1400 Buttock 5 Wound 02/17/24 Blister Back Lower;Right 02/17/24 1521 Back 4 Psychosocial Within Defined Limits * Nursing Assessment - Sonal Landeros RN - 02/21/2024 1:18 PM CDT Nursing Assessment Head to Toe Head to Toe Assessment Shift Summary Shift Summary: Pt is A&O x4, lebanese speaking, project superintendent was used. Assist of one with walker,wears TLSO at bedside. Sutures were removed from back incision, was noted a slight gap at the lowerpart of the incision, images taken, no drainage noted. and changed Mepilex dressing. Blister on theright buttock was opened and has drainage, mepilex changed. Will order wound consult. Continue to monitor. Sonal Landeros RN, 02/21/2024 1:18 PM Bowel Management Last Bowel Movement: 02/21/2024 Continent without assist - no plan needed Bladder Management Continent without assist - no plan needed Timed Toileting Plan No plan needed Medication Converse Dependent Wound Care Incision on the back; Blister on the right buttock, open areas on the back and left buttock Behavior Management No behavior issues identified - no plan needed Nursing Barriers Fall risk Neurologic/Cognitive Within Defined Limits HEENT Within Defined Limits Cardiac Within Defined Limits Respiratory Within defined limits Neurovascular Assessment Within Defined Limits except for: Neurovascular RLE Sensation: Pins and needles Comments: On rt big toe Gastrointestinal Within Defined Limits Stool (unmeasured): 1 (02/19/24 0530) Stool Amount: small (02/20/24 1223) Stool Color: brown (02/20/24 1223) Stool Consistency: soft (02/20/24 1223) Genitourinary Assessment Within Defined Limits except for: Voiding: Voiding without difficulty Musculoskeletal Assessment Within Defined Limits except for: Musculoskeletal Assessment: General Mobility: Generalized weakness Range of Motion: LLE - mildly impaired RLE - mildly impaired Integumentary Assessment Within Defined Limits except for: Skin Assessment Integrity - see Avatar LDA documentation Patient Lines/Drains/Airways Status Active LDAs Name Placement date Placement time Site Days Wound 02/10/24 Incision Back 02/10/24 0803 Back 11 Wound 02/11/24 Skin Tear Elbow Anterior;Right 02/11/24 0630 Elbow 10 Wound 02/16/24 Blister Buttock Right;Posterior 02/16/24 1300 Buttock 5 Wound 02/16/24 Skin Tear Buttock Left 02/16/24 1400 Buttock 4 Wound 02/17/24 Blister Back Lower;Right 02/17/24 1521 Back 3 Psychosocial Within Defined Limits * Nursing Assessment - Craig Henderson RN - 02/21/2024 1:17 AM CDT Nursing Assessment Head to Toe Head to Toe Assessment Shift Summary Shift Summary: Patient alert and oriented x 4 able to make needs known and using call light appropriately. Speaks lebanese. A-1 using a rolling walker and compliant with wearing TLSO when OOB and compliant with TLSO. Continent of bowel and bladder. Denied pain or discomfort. Slept well overnight no acute event, rounding completed, call light within reach, will continue with the plan of care. Bowel Management Last Bowel Movement: 02/20/2024 Continent without assist - no plan needed PO medications Bladder Management Continent without assist - no plan needed Medication Converse Dependent Wound Care Not Applicable Behavior Management No behavior issues identified - no plan needed Nursing Barriers none Neurologic/Cognitive Within Defined Limits HEENT Within Defined Limits Cardiac Within Defined Limits Respiratory Within defined limits Neurovascular Within Defined Limits Gastrointestinal Within Defined Limits Stool (unmeasured): 1 (02/19/24 0530) Stool Amount: small (02/20/24 1223) Stool Color: brown (02/20/24 1223) Stool Consistency: soft (02/20/24 1223) Genitourinary Assessment Within Defined Limits except for: Voiding: Voiding without difficulty Musculoskeletal Assessment Within Defined Limits except for: Musculoskeletal Assessment: General Mobility: Generalized weakness Range of Motion: LLE - mildly impaired RLE - mildly impaired Integumentary Assessment Within Defined Limits except for: Skin Assessment Integrity - see Avatar LDA documentation Patient Lines/Drains/Airways Status Active LDAs Name Placement date Placement time Site Days Wound 02/10/24 Incision Back 02/10/24 0803 Back 10 Wound 02/11/24 Skin Tear Elbow Anterior;Right 02/11/24 0630 Elbow 9 Wound 02/16/24 Blister Buttock Right;Posterior 02/16/24 1300 Buttock 4 Wound 02/16/24 Skin Tear Buttock Left 02/16/24 1400 Buttock 4 Wound 02/17/24 Blister Back Lower;Right 02/17/24 1521 Back 3 Psychosocial Within Defined Limits * Nursing Assessment - Jeaneth Guillory RN - 02/20/2024 10:33 PM CDT Nursing Assessment Head to Toe Head to Toe Assessment Shift Summary Shift Summary: Patient alert and oriented x4. Algerian speaking. Able to make needs known. Uses call light appropriately. Assist of one with walker. Denied pain this shift. Wears TLSO. TLSO adjusted by baltazar this shift. On reg/ thin liquids diet. Ate 75% for dinner. Patient had a shower this afternoon. Daughter assisted with shower. Incision to back CDI and DIRECTOR COUNSELING [employer]. Continent of bowel and bladder. No BM this shift. Will continue to monitor. Jeaneth Guillory RN, 02/20/2024 10:36 PM Bowel Management Last Bowel Movement: 02/20/2024 Continent without assist - no plan needed Bladder Management Continent without assist - no plan needed Timed Toileting Plan No plan needed Medication Converse Dependent Wound Care Blisters to back Behavior Management No behavior issues identified - no plan needed Nursing Barriers none Neurologic/Cognitive Within Defined Limits HEENT Within Defined Limits Cardiac Within Defined Limits Respiratory Within defined limits Neurovascular Assessment Within Defined Limits except for: Neurovascular RLE Sensation: Pins and needles Comments: On rt big toe Gastrointestinal Within Defined Limits Stool (unmeasured): 1 (02/19/24 0530) Stool Amount: small (02/20/24 1223) Stool Color: brown (02/20/24 1223) Stool Consistency: soft (02/20/24 1223) Genitourinary Assessment Within Defined Limits except for: Voiding: Voiding without difficulty Musculoskeletal Assessment Within Defined Limits except for: Musculoskeletal Assessment: General Mobility: Generalized weakness Range of Motion: LLE - mildly impaired RLE - mildly impaired Integumentary Assessment Within Defined Limits except for: Skin Assessment Integrity - see Avatar LDA documentation Patient Lines/Drains/Airways Status Active LDAs Name Placement date Placement time Site Days Wound 02/10/24 Incision Back 02/10/24 0803 Back 10 Wound 02/11/24 Skin Tear Elbow Anterior;Right 02/11/24 0630 Elbow 9 Wound 02/16/24 Blister Buttock Right;Posterior 02/16/24 1300 Buttock 4 Wound 02/16/24 Skin Tear Buttock Left 02/16/24 1400 Buttock 4 Wound 02/17/24 Blister Back Lower;Right 02/17/24 1521 Back 3 Psychosocial Within Defined Limits * Nursing Assessment - Dante Ojeda RN - 02/20/2024 12:37 PM CDT Nursing Assessment Head to Toe Head to Toe Assessment Shift Summary Shift Summary: Pt is A&O x4, lebanese speaking, uses call light appropriately, able to make needs known. Assistof one with walker, wears TLSO at bedside Ate meals, appetite good. Sutures removed from back incision, noted a slight gap at the lower part of the incision, applied Meplix, blanchable redness along incision sited, otherwise incision looks good, no sign and symptoms of infection. Affected skin to toni upper buttock and mid-right back, concern the TLSO edge causing it, called the [facility],came assessed and took the brace off unit to fix it and just brought it back. Will continue to monitor. Dante Ojeda RN, 02/20/2024 3:13 PM Bowel Management Last Bowel Movement: 02/20/2024 Continent without assist - no plan needed Bladder Management Continent without assist - no plan needed Timed Toileting Plan No plan needed Medication Converse Dependent Wound Care Incision on the back; Blister on the right buttock, open areas on the back and left buttock Behavior Management No behavior issues identified - no plan needed Nursing Barriers Fall risk Neurologic/Cognitive Within Defined Limits HEENT Within Defined Limits Cardiac Within Defined Limits Respiratory Within defined limits Neurovascular Assessment Within Defined Limits except for: Neurovascular RLE Sensation: Pins and needles Comments: On rt big toe Gastrointestinal Within Defined Limits Stool (unmeasured): 1 (02/19/24 0530) Stool Amount: small (02/20/24 1223) Stool Color: brown (02/20/24 1223) Stool Consistency: soft (02/20/24 1223) Genitourinary Assessment Within Defined Limits except for: Voiding: Voiding without difficulty Musculoskeletal Assessment Within Defined Limits except for: Musculoskeletal Assessment: General Mobility: Generalized weakness Range of Motion: LLE - mildly impaired RLE - mildly impaired Integumentary Assessment Within Defined Limits except for: Skin Assessment Integrity - see Avatar LDA documentation Patient Lines/Drains/Airways Status Active LDAs Name Placement date Placement time Site Days Wound 02/10/24 Incision Back 02/10/24 0803 Back 10 Wound 02/11/24 Skin Tear Elbow Anterior;Right 02/11/24 0630 Elbow 9 Wound 02/16/24 Blister Buttock Right;Posterior 02/16/24 1300 Buttock 3 Wound 02/16/24 Skin Tear Buttock Left 02/16/24 1400 Buttock 3 Wound 02/17/24 Blister Back Lower;Right 02/17/24 1521 Back 2 Psychosocial Within Defined Limits * Nursing Assessment - Craig Henderson RN - 02/20/2024 12:52 AM CDT Nursing Assessment Head to Toe Head to Toe Assessment Shift Summary Shift Summary: Patient alert and oriented x 4 able to make needs known and using call light appropriately. Speaks lebanese. A-1 using a rolling walker and compliant with wearing TLSO when OOB and compliant with TLSO. Continent of bowel and bladder. Denied pain or discomfort. Slept well overnight no acut event, rounding completed, call light within reach, will continue with the plan of care. Craig Henderson, [place],02/20/2024 6:51 AM Bowel Management Last Bowel Movement: 02/19/2024 Continent without assist - no plan needed PO medications Bladder Management Continent without assist - no plan needed Timed Toileting Plan No plan needed Medication Converse Dependent Wound Care Not Applicable Behavior Management No behavior issues identified - no plan needed Nursing Barriers none Neurologic/Cognitive Within Defined Limits HEENT Within Defined Limits Cardiac Within Defined Limits Respiratory Within defined limits Neurovascular Within Defined Limits Gastrointestinal Within Defined Limits Stool (unmeasured): 1 (02/19/24 0530) Stool Amount: large (02/19/24 1000) Stool Color: brown (02/19/24 1000) Stool Consistency: formed (02/19/24 1000) Genitourinary Assessment Within Defined Limits except for: Voiding: Voiding without difficulty Musculoskeletal Assessment Within Defined Limits except for: Musculoskeletal Assessment: General Mobility: Generalized weakness Range of Motion: LLE - mildly impaired RLE - mildly impaired Integumentary Assessment Within Defined Limits except for: Skin Assessment Integrity - see Avatar LDA documentation Patient Lines/Drains/Airways Status Active LDAs Name Placement date Placement time Site Days Wound 02/10/24 Incision Back 02/10/24 0803 Back 9 Wound 02/11/24 Skin Tear Elbow Anterior;Right 02/11/24 0630 Elbow 8 Wound 02/16/24 Blister Buttock Right;Posterior 02/16/24 1300 Buttock 3 Wound 02/16/24 Skin Tear Buttock Left 02/16/24 1400 Buttock 3 Wound 02/17/24 Blister Back Lower;Right 02/17/24 1521 Back 2 Psychosocial Within Defined Limits * Nursing Assessment - Jeaneth Guillory RN - 02/19/2024 5:59 PM CDT Nursing Assessment Head to Toe Head to Toe Assessment Shift Summary Shift Summary: Patient alert and oriented x4. Algerian speaking. Able to make needs known. Uses call light appropriately. Assist of one with walker. Reported pain to back this shift. Got PRN oxycodone and flexeril x1.Wears TLSO. On reg/ thin liquids diet. Ate 75% for dinner. Continent of bowel and bladder. No BM this shift. Will continue to monitor. Jeaneth Guillory RN, 02/19/2024 10:13 PM Bowel Management Last Bowel Movement: 02/19/2024 Continent without assist - no plan needed Bladder Management Continent without assist - no plan needed Timed Toileting Plan No plan needed Medication Converse Dependent Wound Care Blisters to back Behavior Management No behavior issues identified - no plan needed Nursing Barriers none Neurologic/Cognitive Within Defined Limits HEENT Within Defined Limits Cardiac Within Defined Limits Respiratory Within defined limits Neurovascular Assessment Within Defined Limits except for: Neurovascular RLE Sensation: Pins and needles Comments: On rt big toe Gastrointestinal Within Defined Limits Stool (unmeasured): 1 (02/19/24 0530) Stool Amount: large (02/19/24 1000) Stool Color: brown (02/19/24 1000) Stool Consistency: formed (02/19/24 1000) Genitourinary Assessment Within Defined Limits except for: Voiding: Voiding without difficulty Musculoskeletal Assessment Within Defined Limits except for: Musculoskeletal Assessment: General Mobility: Generalized weakness Range of Motion: LLE - mildly impaired RLE - mildly impaired Integumentary Assessment Within Defined Limits except for: Skin Assessment Integrity - see Avatar LDA documentation Patient Lines/Drains/Airways Status Active LDAs Name Placement date Placement time Site Days Wound 02/10/24 Incision Back 02/10/24 0803 Back 9 Wound 02/11/24 Skin Tear Elbow Anterior;Right 02/11/24 0630 Elbow 8 Wound 02/16/24 Blister Buttock Right;Posterior 02/16/24 1300 Buttock 3 Wound 02/16/24 Skin Tear Buttock Left 02/16/24 1400 Buttock 3 Wound 02/17/24 Blister Back Lower;Right 02/17/24 1521 Back 2 Psychosocial Within Defined Limits * Nursing Assessment - Jeaneth Guillory RN - 02/19/2024 2:59 PM CDT Nursing Assessment Head to Toe Head to Toe Assessment Shift Summary Shift Summary: Patient alert and oriented x4. Algerian speaking. Able to make needs known. Assist of one with transfer. Reported pain to back this shift and got PRN oxycodone x1. Wears TLSO. On reg/ thin liquids diet. Ate 100% breakfast and 75% for lunch. Continent of bowel an bladder. Had a BM this shift. Bowel meds switched to PRN. No further issues. Will continue to monitor. Jeaneth Guillory RN, 02/19/2024 5:11 PM Bowel Management Last Bowel Movement: 02/19/2024 Continent without assist - no plan needed Bladder Management Continent without assist - no plan needed Timed Toileting Plan No plan needed Medication Converse Dependent Wound Care Blisters to back Behavior Management No behavior issues identified - no plan needed Nursing Barriers none Neurologic/Cognitive Within Defined Limits HEENT Within Defined Limits Cardiac Within Defined Limits Respiratory Within defined limits Neurovascular Assessment Within Defined Limits except for: Neurovascular RLE Sensation: Pins and needles Comments: On rt big toe Gastrointestinal Within Defined Limits Stool (unmeasured): 1 (02/19/24 0530) Stool Amount: large (02/19/24 1000) Stool Color: brown (02/19/24 1000) Stool Consistency: formed (02/19/24 1000) Genitourinary Assessment Within Defined Limits except for: Voiding: Voiding without difficulty Musculoskeletal Assessment Within Defined Limits except for: Musculoskeletal Assessment: General Mobility: Generalized weakness Range of Motion: LLE - mildly impaired RLE - mildly impaired Integumentary Assessment Within Defined Limits except for: Skin Assessment Integrity - see Avatar LDA documentation Patient Lines/Drains/Airways Status Active LDAs Name Placement date Placement time Site Days Wound 02/10/24 Incision Back 02/10/24 0803 Back 9 Wound 02/11/24 Skin Tear Elbow Anterior;Right 02/11/24 0630 Elbow 8 Wound 02/16/24 Blister Buttock Right;Posterior 02/16/24 1300 Buttock 3 Wound 02/16/24 Skin Tear Buttock Left 02/16/24 1400 Buttock 3 Wound 02/17/24 Blister Back Lower;Right 02/17/24 1521 Back 1 Psychosocial Within Defined Limits * Interdisciplinary Note - Celestina De La Cruz PSC - 02/19/2024 10:23 AM CDT [facility] 02/19/2024 Alondra Aguilar Patient Active Problem List Diagnosis Cancer screening Scoliosis of lumbar spine Arthralgia of both hands Lumbar radiculopathy Cervical radiculopathy Essential hypertension Scoliosis of lumbar spine, unspecified scoliosis type Physician present and directed rounds: Dr. Chandler Zuniga DO. Dr. Bryce Bonilla DO Other team participants: Burial Vault Deliverer And Installer: Allie Martin PT Speech Language Pathology; Altagracia Lemons CCC AFTER SCHOOL PROGRAM TEACHER Occupational Therapy; Landy Pineda OTR/L Physical Therapy; Rebecca Rodarte PT, DPT Registered Nurse; Jeaneth Guillory RN and Sonal Landeros RN Nurse CCS; Ilene Lamb RN Neuropsychology; Lizzie Stone PhD,LP DME Coordinator; Amelia Ascencio * Interdisciplinary Note - Chandler Zuniga DO - 02/19/2024 10:21 AM CDT Physical Medicine and Rehabilitation Individualized Overall Plan of Care and Initial Interdisciplinary Team Meeting 02/19/2024 Patient name: Alondra Aguilar : 1950 Age: 73 y.o. Hospital Admit date: 02/17/2024 Rehab diagnosis: orthopedic disorders: other orthopedic Current Status / Updates Provider Medical Update: Pt is medically appropriate to continue the comprehensive inpatient rehab program. Alondra Aguilar is a 73 y.o. female with chronic medical conditions including hypertension, chronic low back pain, degenerative scoliosis, admitted to [facility] February 10, 2024 for elective spinal fusion T11-S2 and left L5-S1 PLIF. Had two Hemovac drains in place postoperatively, both of which have been removed. Functionally remains below baseline with regard to mobility and self-careThe investor relations associate is currently managing Fall assessment and prevention for patient safety Ongoing assessment of signs and symptoms of infection and ongoing education to prevent community transmission at discharge Ongoing skin assessment for the prevention of pressure ulcers and/or skin breakdown and wound care to existing sites Adequate nutrition for optimal healing Assessing the need for a bowel/bladder program to decrease risk of skin breakdown and increase independence with toileting to return to community Management of DVT ppx to prevent secondary complications Electrolyte management for promotion of hemodynamic stability and the ability to meet requirements for mobility Oversight of the therapy program to enhance independence in functional mobility tasks Medication adjustments to optimize participation, reduce secondary complications, and promote idealmedical healing Assessment of patient's pain management needs being met to achieve goals of IRF program including medication management, therapy schedule adjustment, and interdisciplinary team work and need for conservative treatments Ongoing assessment for risk for common general postoperative complications including postoperative fever, atelectasis, wound infection, embolism and deep vein thrombosis (DVT) through taking vitals, use of an incentive spirometer, management of labs, anticoagulation medications, and sequential compression devices Ongoing assessments for respiratory complications that may contribute to pneumonia and acute respiratory failure from after having general anesthesia and surgery with lung assessments Post- surgery assessment of anemia from significant bleeding, that can cause serious health problems which can lead to too little oxygen in the body and cause organ damage. With anemia, the heart works harder to make up for the lack of red blood cells or hemoglobin Education regarding the prevention of edema, DVTs, and contractures, positioning, strengthening, balance, coordination, and mobility with the use of equipment and prosthetic/orthotics as appropriate Medical Prognosis: Good Functional Prognosis: Good Anticipated Interventions with the following interdisciplinary team members: PT, OT, AFTER SCHOOL PROGRAM TEACHER, news editor,Paper Machine Back Tender, and Psychology Current scope of Services Recommended: Appropriate for PT 1.5 hours/day, 6 days/week for 9 days Appropriate for OT 1.5 hours/day, 6 days/week for 9 days Case Management Updates: Notes: She plans to discharge home to her house where she lives with two daughters, son-in-law, andher granddaughter. Her PCP is Dr. Marcela Vera here at [place]. OP therapies here at the [facility]. (02/18/24999) Living Situation: Home (02/18/24949) Patient and Family Goals: Patient's Discharge Goal: She wants to be able to not have pain when she goes home. She wants to be able to do everything on her own. (02/18/24949) Family's Discharge Goal: Not present (02/18/24949) Prior Level of Function: ADLs/IADLs: No assistance required (Independent or modified independent) (02/18/24999) Functional Mobility: Independent in the home without assistive device (02/18/24999) Mobility (PT): Recommend d/c home in 1 week w/ PRN assistance to get to appointments. Pt will need FWW and will contact [facility] Araujo. OP PT at discharge. Barriers are the stairs and pain. (02/18/24999) PT Discharge Recommendations: Safety risk for discharge home today. PT Post Discharge Follow-up: Outpatient PT recommended * PT Progress towards interdisciplinary DC Plan: Interdisciplinary DC plan not yet set - PT ELOS is *(7 days from admission) (02/18/24 1400) PT Discharge Barriers: Pain;Caregiver support/supervision insufficient;High falls risk;Motor / physical impairments pose safety risk (02/18/24 1400) Self-Care / Cognition / Visual Perception (OT): Motivated, needs overall Min/Mod A of 1 for ADL. Barrier to d/c: Needs to be independent for ADL asshe would be alone during the day. Anticipating [facility]. Will order a shower chair with back. No outpatient OT (02/18/24 1000) OT Discharge Recommendations: Safety risk for discharge to home today. Barriers to Discharge (OT): Motor / physical impairments pose safety risk OT Post Discharge Follow-up: (*) (TBD) OT Supervision / Assistance Recommended (for home DC): Supervision / Assistance recommended for Home DC (OT): Yes Physical assistance recommended for (OT): Upper body dressing;Lower body dressing;Toileting;Bathing;Meal preparation;Transportation OT Progress towards interdisciplinary DC Plan: Interdisciplinary DC plan not yet set - OT ELOS is (*). (~ 10 to 14 days from admission) (02/18/24 1000) OT Discharge Barriers: Motor / physical impairments pose safety risk (02/18/24 1000) Nursing Update: Bowel Management Last Bowel Movement: 02/19/2024 Small BM Continent without assist - no plan needed Bladder Management Continent without assist - no plan needed Timed Toileting Plan No plan needed Medication Converse Dependent Wound Care Not Applicable Behavior Management No behavior issues identified - no plan needed Nursing Barriers none Discharge Planning: Support System: Two daughters - Kaela LoyaenasCandace (02/18/24 0950) Decision maker: Self (02/18/24 0950) Primary Person to Coordinate Post-Discharge Plans: Daughters Kaela and Candace Transportation Resources: Daughters (02/18/24 0950) Post DC Therapy Plans: Out Patient therapies;PT (at [facility]) (02/19/24 1100) Equipment: PT Equipment Recommended: Front wheeled walker (02/18/24 1400) PT Equipment Status: Equipment needs being determined (02/18/24 1400) OT Equipment Recommended: Shower chair with back (02/18/24 1000) OT Equipment Status: Recommendations for Discharge: [employer] PROGRAM TEACHER: Supervision: OT: Supervision: Anticipated DC Date: 02/26/24 Expected Discharge Disposition: Home or Self Care Patient and health care manager(s), as appropriate, to be informed of plan by the following preanalytics team lead: Allie Martin PT Rehab Physician: This individualized overall plan of care was developed by the rehab physician based on information from the preadmission screening and other information gathered from the assessments of all disciplines involved in treating this patient. By signing this document the rehab physician attests that theyled the interdisciplinary team meeting and concur with all decisions made by the team during this interdisciplinary individualized overall plan of care meeting. Chandler Zuniga DO, 02/19/2024 11:51 AM * Nursing Assessment - David Otero RN - 02/19/2024 3:04 AM CDT Nursing Assessment Head to Toe Head to Toe Assessment Shift Summary Shift Summary: Pt is alert and oriented x 4, pt is lebanese speaking.uses call light appropriately. can make needs known. compliant with TLSO. Pt slept most of night. Up with Ax1 with walker. Denies pain. Continent of bowel and bladder. On regular thin liquid. Takes medication whole with thin liquid. No concern as of now. POC ongoing. David Otero RN, 02/19/2024 6:01 AM Bowel Management Last Bowel Movement: 02/19/2024 Small BM Continent without assist - no plan needed Bladder Management Continent without assist - no plan needed Timed Toileting Plan No plan needed Medication Converse Dependent Wound Care Not Applicable Behavior Management No behavior issues identified - no plan needed Nursing Barriers none Neurologic/Cognitive Within Defined Limits HEENT Within Defined Limits Cardiac Within Defined Limits Respiratory Within defined limits Neurovascular Within Defined Limits Gastrointestinal Within Defined Limits Stool Amount: moderate (02/18/24 0808) Stool Color: brown (02/18/24 0808) Stool Consistency: soft (02/18/24 0808) Genitourinary Assessment Within Defined Limits except for: Voiding: Voiding without difficulty Musculoskeletal Assessment Within Defined Limits except for: Musculoskeletal Assessment: General Mobility: Generalized weakness Range of Motion: LLE - mildly impaired RLE - mildly impaired Integumentary Assessment Within Defined Limits except for: Skin Assessment Integrity - see Avatar LDA documentation Patient Lines/Drains/Airways Status Active LDAs Name Placement date Placement time Site Days Wound 02/10/24 Incision Back 02/10/24 0803 Back 8 Wound 02/11/24 Skin Tear Elbow Anterior;Right 02/11/24 0630 Elbow 7 Wound 02/16/24 Blister Buttock Right;Posterior 02/16/24 1300 Buttock 2 Wound 02/16/24 Skin Tear Buttock Left 02/16/24 1400 Buttock 2 Wound 02/17/24 Blister Back Lower;Right 02/17/24 1521 Back 1 Psychosocial Within Defined Limits * Nursing Assessment - David Otero RN - 02/18/2024 7:54 PM CDT Nursing Assessment Head to Toe Head to Toe Assessment Shift Summary Shift Summary: Pt is alert and oriented x 4, pt is lebanese speaking. can make needs known. Ax1 with walker, compliant with TLSO. Pt verbalized feeling like pin an needle like on Rt big toe . Dressing changed and picture updated on epic. Endorse pain on back rating 8/10 PRN Oxycodone given as requested. Pt had 75%of dinner. Bowel Management Last Bowel Movement: 02/18/2024 Continent without assist - no plan needed Bladder Management Continent without assist - no plan needed Timed Toileting Plan No plan needed Medication Converse Dependent Wound Care Not Applicable Behavior Management No behavior issues identified - no plan needed Nursing Barriers none Neurologic/Cognitive Within Defined Limits HEENT Within Defined Limits Cardiac Within Defined Limits Respiratory Within defined limits Neurovascular Assessment Within Defined Limits except for: Neurovascular RLE Sensation: Pins and needles Comments: On rt big toe Gastrointestinal Within Defined Limits Emesis: 0 mL (02/16/2024 8:00 PM) Stool Amount: moderate (02/18/24 0808) Stool Color: brown (02/18/24 0808) Stool Consistency: soft (02/18/24 0808) Genitourinary Assessment Within Defined Limits except for: Voiding: Voiding without difficulty Musculoskeletal Assessment Within Defined Limits except for: Musculoskeletal Assessment: General Mobility: Generalized weakness Range of Motion: LLE - mildly impaired RLE - mildly impaired Integumentary Assessment Within Defined Limits except for: Skin Assessment Integrity - see Avatar LDA documentation Patient Lines/Drains/Airways Status Active LDAs Name Placement date Placement time Site Days Wound 02/10/24 Incision Back 02/10/24 0803 Back 8 Wound 02/11/24 Skin Tear Elbow Anterior;Right 02/11/24 0630 Elbow 7 Wound 02/16/24 Blister Buttock Right;Posterior 02/16/24 1300 Buttock 2 Wound 02/16/24 Skin Tear Buttock Left 02/16/24 1400 Buttock 2 Wound 02/17/24 Blister Back Lower;Right 02/17/24 1521 Back 1 Psychosocial Within Defined Limits * Nursing Assessment - Eva Truong RN - 02/18/2024 11:30 AM CDT Nursing Assessment Head to Toe Head to Toe Assessment Shift Summary A&Ox4. Algerian speaking. Utilized to complete assessment and meds administration. Calm, pleasant, and cooperative with all cares. C/O incisional pain. Rated pain at 6/10. Administered PRN pain Oxy 10 mg. VSS, RA. Denies SOB, CP, and N/V. Continent B&B. Had a BM today. Eating and drinking fluids. Call light within reach. Will continue to monitor with POC. Eva Truong RN, 02/18/2024 2:48 PM Neurologic/Cognitive Within Defined Limits HEENT Assessment Within Defined Limits except for: Teeth Symptoms: Dental appliance Comments: Upper and lower dentures Cardiac Assessment Within Defined Limits except for: Respiratory Within defined limits Neurovascular Within Defined Limits Gastrointestinal Within Defined Limits Emesis: 0 mL (02/16/2024 8:00 PM) Stool Amount: moderate (02/18/24 08) Stool Color: brown (02/18/24 08) Stool Consistency: soft (02/18/24807) Genitourinary Within Defined Limits Musculoskeletal Assessment Within Defined Limits except for: Musculoskeletal Assessment: General Mobility: Moderately impaired Comments: TLSO when OOB and above 30 degress Integumentary Assessment Within Defined Limits except for: Skin Assessment Integrity - other (see comment) Comments: X3 Blister on back; Incision on back with sutures Patient Lines/Drains/Airways Status Active LDAs Name Placement date Placement time Site Days Wound 02/10/24 Incision Back 02/10/24 0803 Back 8 Wound 02/11/24 Skin Tear Elbow Anterior;Right 02/11/24 0630 Elbow 7 Wound 02/16/24 Blister Buttock Right;Posterior 02/16/24 1300 Buttock 2 Wound 02/16/24 Skin Tear Buttock Left 02/16/24 1400 Buttock 2 Wound 02/17/24 Blister Back Lower;Right 02/17/24 1521 Back less than 1 Psychosocial Within Defined Limits Psychosocial Assessment: Observed Patient Behaviors: Pleasant Family Behavior: not present * Nursing Assessment - Dalia Coto RN - 02/18/2024 6:05 AM CDT Nursing Assessment Head to Toe Head to Toe Assessment Shift Summary Shift Summary No acute events over night, sleeping between care, assist of one to bathroom, fome dressing to R &L buttocks intact, voided without issues, pt denied pain, SOB and nausea, will continue to monitor. Vitals: 02/17/24 1500 BP: 122/44 Pulse: 85 Resp: 18 Temp: 35.8 ??C (96.5 ??F) SpO2: 96% Neurologic/Cognitive Within Defined Limits HEENT Within Defined Limits Cardiac Within Defined Limits Respiratory Within defined limits Neurovascular Within Defined Limits Gastrointestinal Assessment Within Defined Limits except for: Abdominal appearance: Contour irregular Emesis: 0 mL (02/16/2024 8:00 PM) Stool Amount: moderate (02/17/24 1650) Stool Color: brown (02/17/24 1650) Stool Consistency: soft (02/17/24 1650) Genitourinary Assessment Within Defined Limits except for: Comments: Pt is on purewick. Musculoskeletal Assessment Within Defined Limits except for: Musculoskeletal Assessment: General Mobility: Mildly impaired Range of Motion: LLE - mildly impaired RLE - mildly impaired Comments: Pt has brace around back and torso. Pt's LLE and RLE are weak. Integumentary Assessment Within Defined Limits except for: Skin Assessment Integrity - see Avatar LDA documentation Comments: Pt has incision site on the lower back. Buttocks have a small blister on the right along with some redness. Patient Lines/Drains/Airways Status Active LDAs Name Placement date Placement time Site Days Wound 02/10/24 Incision Back 02/10/24 0803 Back 7 Wound 02/11/24 Skin Tear Elbow Anterior;Right 02/11/24 0630 Elbow 6 Wound 02/16/24 Blister Buttock Right;Posterior 02/16/24 1300 Buttock 1 Wound 02/16/24 Skin Tear Buttock Left 02/16/24 1400 Buttock 1 Wound 02/17/24 Blister Back Lower;Right 02/17/24 1521 Back less than 1 Psychosocial Within Defined Limits * Nursing Assessment - Jasmin Gonzalez RN - 02/17/2024 10:48 PM CDT Nursing Assessment Head to Toe Head to Toe Assessment Shift Summary Shift Summary: Aox4, Algerian speaking, using call light. Daughter here with her most of evening. A-1 with walker, TLSO when >30. Good appetite and fluid intake. C/o pain to incision area, given prn tylenol and oxycodone, effective. Bowel Management Last Bowel Movement: 02/17/24 Continent without assist - no plan needed Bladder Management Continent without assist - no plan needed Timed Toileting Plan No plan needed Medication Converse Dependent Wound Care Not Applicable Behavior Management No behavior issues identified - no plan needed Nursing Barriers Neurologic/Cognitive Within Defined Limits HEENT Assessment Within Defined Limits except for: Teeth Symptoms: Dental appliance Comments: Upper and lower dentures Cardiac Assessment Within Defined Limits except for: Respiratory Within defined limits Neurovascular Within Defined Limits Gastrointestinal Within Defined Limits Emesis: 0 mL (02/16/2024 8:00 PM) Stool Amount: moderate (02/17/24 1650) Stool Color: brown (02/17/24 1650) Stool Consistency: soft (02/17/24 1650) Genitourinary Within Defined Limits Musculoskeletal Assessment Within Defined Limits except for: Musculoskeletal Assessment: General Mobility: Moderately impaired Comments: TLSO Integumentary Assessment Within Defined Limits except for: Skin Assessment Integrity - other (see comment) Comments: X3 Blister on back; Incision on back with sutures Patient Lines/Drains/Airways Status Active LDAs Name Placement date Placement time Site Days Wound 02/10/24 Incision Back 02/10/24 0803 Back 7 Wound 02/11/24 Skin Tear Elbow Anterior;Right 02/11/24 0630 Elbow 6 Wound 02/16/24 Blister Buttock Right;Posterior 02/16/24 1300 Buttock 1 Wound 02/16/24 Skin Tear Buttock Left 02/16/24 1400 Buttock 1 Wound 02/17/24 Blister Back Lower;Right 02/17/24 1521 Back less than 1 Psychosocial Within Defined Limits * Nursing Assessment - Lakshmi Castro RN - 02/17/2024 3:00 PM CDT Nursing Assessment Head to Toe Head to Toe Assessment Shift Summary Patient alert and oriented x4. Admitted from [facility] after T11-S2 spinal fusion. Algerian speaking. TLSOwhen up greater than 30. Okay to yves TLSO at edge of the bed. Per report, continent of both bowel and bladder. LBM 5/15. Back incision with sutures. X3 blisters on the back with mepilex dressing. Reg thin. Takes meds whole.Daughters visit but wont be able to take care of patient at discharge. Reports minimal pain on back. Tylenol and prn oxy helping. Will continue with POC. Lakshmi Castro, RN, 02/17/2024 3:12 PM Neurologic/Cognitive Within Defined Limits HEENT Assessment Within Defined Limits except for: Teeth Symptoms: Dental appliance Comments: Upper and lower dentures Cardiac Assessment Within Defined Limits except for: Comments: Soft BP 98/44 Respiratory Within defined limits Comments: PRN o2 Neurovascular Within Defined Limits Gastrointestinal Within Defined Limits Comments: LBM 5/15 Emesis: 0 mL (02/16/2024 8:00 PM) Genitourinary Within Defined Limits Musculoskeletal Assessment Within Defined Limits except for: Musculoskeletal Assessment: General Mobility: Moderately impaired Comments: TLSO when greater than 30 Integumentary Assessment Within Defined Limits except for: Skin Assessment Integrity - other (see comment) Comments: X3 Blister on back; Incision on back with sutures Patient Lines/Drains/Airways Status Active LDAs Name Placement date Placement time Site Days Peripheral IV 02/10/24 20 gauge Left Forearm 02/10/24 0653 -- 7 Peripheral IV 02/11/24 20 gauge;1 3/4 in length Anterior;Right Forearm 02/11/24 1228 -- 6 Female External Urinary Catheter 02/12/24 1830 -- 4 Wound 02/10/24 Incision Back 02/10/24 0803 Back 7 Wound 02/11/24 Other (comment) Arm Anterior;Proximal;Right;Upper 02/11/24 0100 Arm 6 Wound 02/11/24 Skin Tear Elbow Anterior;Right 02/11/24 0630 Elbow 6 Wound 02/16/24 Blister Buttock Right;Posterior 02/16/24 1300 Buttock 1 Wound 02/16/24 Skin Tear Buttock Left 02/16/24 1400 Buttock 1 Psychosocial Within Defined Limits documented in this encounter Plan of Treatment Upcoming Encounters Date Type Department Care Team (Late st Contact Info) Description 03/28/2024 1:00 PM CDT [facility] [address] [place] [id number] Navi Verduzco PA-C [address] [place] [id number] 1, [place]ian [address] [place] [phone] Scheduled Discharge Disposition: Discharged to home or self care (routine discharge) 03/28/2024 2:00 PM CDT [facility] [employer] [address] [place] [phone] Marina Vasquez, PRE SALES NETWORK ENGINEER [address] [place] [id number] 1, [place] [address] [place] [id number] Scheduled Discharge Disposition: Discharged to home or self care (routine discharge) 04/01/2024 11:30 AM CDT [facility]ointment [facility] Physical [facility] [address] [place] [id number] Chandler Zuniga, DO [address] [address] Nikki Delong, PT [address] [place] [address] 1, [place] [address] [place] [phone] Scheduled Discharge Disposition: Discharged to home or self care (routine discharge) 04/05/2024 1:00 PM CDT [facility]ment [facility] [address] [place] [phone] Chandler Zuniga, DO [address] [place] [phone] Nikki Delong, PT [address] [place] [address] 1, Isd[place]ian [address] [place] [id number] Scheduled Discharge Disposition: Discharged to home or self care (routine discharge) 04/11/2024 11:00 AM CDT [facility] [address] [place] [phone] Chandler Zuniga, DO [address] [place] [address] Nikki Delong, PT [address] [place] [address] 1, Isd[place]ian [address] [place] [phone] Scheduled Discharge Disposition: Discharged to home or self care (routine discharge) Scheduled Referrals Name Type Priority Associated Diagnoses Orde r Schedule REFERRAL TO PHYSICAL THERAPY Referral Routine Lumbar radiculopathy Ordered: 02/19/2024 REFERRAL TO PHYSICAL MEDICINE & REHABILITATION Referral Routine Scoliosis of lumbar spine, unspecified scoliosis type Ordered: 02/25/2024 REFERRAL TO COMPLEX CARE MANAGEMENT Referral Routine Scoliosis of lumbar spine, unspecified scoliosis type Ordered: 02/25/2024 documented as of this encounter Procedures Procedure Name Priority Date/Time Associated Diagnosis Comments SODIUM Routine 02/25/2024 5:22 AM CDT PANEL [...] BY VENIPUNCTURE Routine 02/19/2024 6:16 AM CDT documented in this encounter Results * SODIUM (02/25/2024 5:22 AM CDT) Sodium 137 135 - 148 mmol/L [facility] Blood 02/25/2024 5:22 AM CDT 02/25/2024 6:53 AM CDT Chandler Zuniga DO LABORATORY [facility] [address] [address] * (ABNORMAL) PANEL BASIC METABOLIC (BMP) (02/23/2024 5:24 AM CDT) Sodium 134(L) 135 - 148 mmol/L [facility] Potassium 4.4 3.5 - 5.3 mmol/L [facility] Chloride 99 92 - 108 mmol/L [facility] CO2 29 22 - 30 mmol/L [facility] AnGap 6(L) 8 - 16 mmol/L [facility] Glucose 92 70 - 100 mg/dL [facility] BUN 17 8 - 23 mg/dL [facility] Creatinine 0.42(L) 0.50 - 1.00 mg/dL [facility] Calcium 8.6(L) 8.8 - 10.2 mg/dL [facility] eGFR (2020 CKD-EPI) 103 >=60 ml/min/1.7 3m2 [facility] Comment: The estimated glomerular filtration rate (eGFR) was calculated using the CKD-EPI 2020 creatinine equation, which does not include race as a factor. This equation is validated in individuals 18 years of age and older, and eGFR is normalized to a body surface area of 1.73m^2. Blood 02/23/2024 5:24 AM CDT 02/23/2024 6:01 AM CDT Chandler Zuniga DO LABORATORY Performing Organization Address City/[facility]/ZIP Co de Phone Number [facility] [address] [phone] * OSMOLALITY,URINE-RANDOM AMERICO (02/22/2024 8:08 PM CDT) Urine Osmo 354 50 - 800 mOsm/Kg [facility] Urine 02/22/2024 8:08 PM CDT 02/22/2024 9:31 PM CDT Chandler Zuniga DO LABORATORY Performing Organization Address [facility] Co de Phone Number [facility] [address] [address] * (ABNORMAL) SODIUM,URINE-RANDOM AMERICO (02/22/2024 8:08 PM CDT) Sodium Urine <20(L) 40 - 200 mmol/L [facility] Urine 02/22/2024 8:08 PM CDT 02/22/2024 9:31 PM CDT Chandler Zuniga DO LABORATORY Performing Organization Address [facility] Co de Phone Number [facility] [address] [phone] * (ABNORMAL) PANEL BASIC METABOLIC (BMP) (02/22/2024 7:09 AM CDT) Sodium 132(L) 135 - 148 mmol/L [facility] Potassium 4.2 3.5 - 5.3 mmol/L [facility] Chloride 98 92 - 108 mmol/L [facility] CO2 26 22 - 30 mmol/L [facility] AnGap 8 8 - 16 mmol/L [facility] Glucose 99 70 - 100 mg/dL [facility] BUN 21 8 - 23 mg/dL [facility] Creatinine 0.43(L) 0.50 - 1.00 mg/dL [facility] Calcium 8.7(L) 8.8 - 10.2 mg/dL [facility] eGFR (2020 CKD-EPI) 103 >=60 ml/min/1.7 3m2 [facility] Comment: The estimated glomerular filtration rate (eGFR) was calculated using the CKD-EPI 2020 creatinine equation, which does not include race as a factor. This equation is validated in individuals 18 years of age and older, and eGFR is normalized to a body surface area of 1.73m^2. Blood 02/22/2024 7:09 AM CDT 02/22/2024 8:15 AM CDT Chandler Zuniga DO LABORATORY [facility] [address] [phone] * (ABNORMAL) CBC WITH PLATELET (02/22/2024 7:09 AM CDT) WBC 7.67 4.00 - 10.00 k/cmm [facility] RBC 3.20(L) 3.90 - 5.20 m/cmm [facility] Hgb 9.4(L) 11.5 - 15.7 g/dL [facility] Hematocrit 30.0(L) 34.0 - 45.0 % [facility] MCV 93.8 80.0 - 100.0 fL [facility] MCH 29.4 25.0 - 32.0 pg [facility] MCHC 31.3 31.0 - 36.0 g/dL [facility] RDW 17.1(H) 11.5 - 14.5 % [facility] Plt 518(H) 150 - 400 k/cmm [facility] MPV 8.6 6.5 - 12.5 fL [facility] NRBC 0.4(H) 0.0 - 0.0 /100WBC [facility] Blood 02/22/2024 7:09 AM CDT 02/22/2024 8:15 AM CDT Chandler Zuniga DO LABORATORY Performing Organization Address [facility] Co de Phone Number [facility] [address] [phone] * (ABNORMAL) PANEL BASIC METABOLIC (BMP) (02/19/2024 6:16 AM CDT) Sodium 133(L) 135 - 148 mmol/L [facility] Potassium 4.1 3.5 - 5.3 mmol/L [facility] Chloride 100 92 - 108 mmol/L [facility] CO2 27 22 - 30 mmol/L [facility] AnGap 6(L) 8 - 16 mmol/L [facility] Glucose 109(H) 70 - 100 mg/dL [facility] BUN 12 8 - 23 mg/dL [facility] Creatinine 0.40(L) 0.50 - 1.00 mg/dL [facility] Calcium 8.4(L) 8.8 - 10.2 mg/dL [facility] eGFR (2020 CKD-EPI) 104 >=60 ml/min/1.7 3m2 [facility] Comment: The estimated glomerular filtration rate (eGFR) was calculated using the CKD-EPI 2020 creatinine equation, which does not include race as a factor. This equation is validated in individuals 18 years of age and older, and eGFR is normalized to a body surface area of 1.73m^2. Blood 02/19/2024 6:16 AM CDT 02/19/2024 6:34 AM CDT Chandler Zuniga DO LABORATORY Performing Organization Address [facility]/ZIP Co de Phone Number [facility] [address] [address] * (ABNORMAL) CBC WITH PLATELET (02/19/2024 6:16 AM CDT) WBC 8.79 4.00 - 10.00 k/cmm [facility] RBC 2.79(L) 3.90 - 5.20 m/cmm [facility] Hgb 8.3(L) 11.5 - 15.7 g/dL [facility] Hematocrit 26.4(L) 34.0 - 45.0 % [facility] MCV 94.6 80.0 - 100.0 fL [facility] MCH 29.7 25.0 - 32.0 pg [facility] MCHC 31.4 31.0 - 36.0 g/dL [facility] RDW 16.7(H) 11.5 - 14.5 % [facility] Plt 378 150 - 400 k/cmm [facility] MPV 8.6 6.5 - 12.5 fL [facility] NRBC 0.8(H) 0.0 - 0.0 /100WBC [facility] Blood 02/19/2024 6:16 AM CDT 02/19/2024 6:36 AM CDT Chandler Zuniga DO LABORATORY Performing Organization Address City/State/[facility] Co de Phone Number [facility] [address] [address] documented in this encounter Visit Diagnoses Diagnosis Scoliosis of lumbar spine, unspecified scoliosis type- Primary Scoliosis of lumbar spine, unspecified scoliosis type Cervical radiculopathy Brachial neuritis or radiculitis nos Lumbar radiculopathy Thoracic or lumbosacral neuritis or radiculitis, unspecified documented in this encounter Administered Medications Inactive Administered Medications - up to 3 most recent administrations Medication Order MAR Action Action Date Dose Rate Site acetaminophen (TYLENOL) tablet 650 mg 650 mg, Oral, Q4H PRN, Starting on Thu02/17/24 at 1441, Until Thu02/22/24 at 0957, Mild Pain (Use First) Given 02/22/2024 7:47 AM CDT 650 mg Given 02/21/2024 8:39 AM CDT 650 mg Given 02/18/2024 8:05 AM CDT 650 mg acetaminophen (TYLENOL) tablet 975 mg 975 mg, Oral, TID, First dose (after last modification) on Thu02/22/24 at 1400, Until Discontinued Given 02/26/2024 1:59 PM CDT 975 mg Given 02/26/2024 8:36 AM CDT 975 mg Given 02/25/2024 8:00 PM CDT 975 mg Aquaphor ointment Topical, DAILY, First dose on Thu02/25/24 at 1040, Until Discontinued Given 02/26/2024 8:37 AM CDT Given 02/25/2024 1:42 PM CDT cyclobenzaprine (FLEXERIL) tablet 10 mg 10 mg, Oral, TID PRN, Starting on Thu02/17/24 at 1441, Until Thu02/26/24 at 1635, Muscle Spasm(s) Given 02/21/2024 7:57 PM CDT 10 mg Given 02/19/2024 7:57 PM CDT 10 mg Given 02/19/2024 11:09 AM CDT 10 mg DC MED REC REVIEW BY PHARMACY Discharge Date: 02/26/2024, Discharge Location: Home, Anticipated Discharge Time: 10 am - 2 pm, Discharge Medication Orders: DC Med Orders Final, Does not apply, PROTOCOL, Starting on Thu02/25/24 at 1411, Until Thu02/26/24 at 1635 diclofenac (VOLTAREN) 1 % gel 2 g 2 g, Topical, TID, First dose on Thu02/25/24 at 1040, Until Discontinued Given 02/26/2024 8:37 AM CDT 2 g Given 02/25/2024 8:00 PM CDT 2 g Given 02/25/2024 1:52 PM CDT 2 g enoxaparin (LOVENOX) 30 mg/0.3 mL injection 30 mg 30 mg, Subcutaneous, DAILY, First dose on Thu02/18/24 at 0800, Until Discontinued Given 02/24/2024 7:52 AM CDT 30 mg Abdominal Tissue Given 02/23/2024 7:52 AM CDT 30 mg Ab dominal Tissue Given 02/22/2024 7:46 AM CDT 30 mg Ab dominal Tissue multivitamin + minerals (CEROVITE SENIOR) 1 tablet 1 tablet, Oral, DAILY, First dose on Thu02/24/24 at 0800, Until Discontinued Given 02/26/2024 8:36 AM CDT 1 tablet Given 02/25/2024 7:37 AM CDT 1 tablet Given 02/24/2024 7:49 AM CDT 1 tablet oxyCODONE (ROXICODONE) tablet 5-10 mg 5-10 mg, Oral, Q4H PRN, Starting on Thu02/17/24 at 1441, Until Thu02/26/24 at 1635, Moderate Pain (Use Second) Given 02/25/2024 1:52 PM CDT 10 mg Given 02/24/2024 9:24 PM CDT 5 mg Given 02/24/2024 7:49 AM CDT 5 mg polyethylene glycol 3350 (MIRALAX;GLYCOLAX) packet 17 g 17 g, Oral, DAILY, First dose on Thu02/18/24 at 0800, Until Discontinued Given 02/19/2024 8:24 AM CDT 17 g polyethylene glycol 3350 (MIRALAX;GLYCOLAX) packet 17 g 17 g, Oral, DAILY PRN, Starting on Thu02/19/24 at 1320, Until Thu02/26/24 at 1635, Constipation (Use First) Given 02/25/2024 6:38 PM CDT 17 g sennosides (SENOKOT) tablet 8.6 mg 8.6 mg, Oral, BID, First dose on Thu02/17/24 at 2000, Until Discontinued Given 02/19/2024 8:24 AM CDT 8.6 mg Given 02/18/2024 7:35 PM CDT 8.6 mg Given 02/18/2024 8:05 AM CDT 8.6 mg sennosides (SENOKOT) tablet 8.6 mg 8.6 mg, Oral, BID PRN, Starting on Thu02/19/24 at 1320, Until Thu02/26/24 at 1635, Constipation (Use Second) traZODone (DESYREL) half tablet 25 mg 25 mg, Oral, BEDTIME, First dose on Thu02/24/24 at 2000, Until Discontinued Given 02/25/2024 8:00 PM CDT 25 mg Given 02/24/2024 9:24 PM CDT 25 mg VTE - Low Risk Low Risk Reason: Ambulating greater than 200m Twice Daily, Does not apply, PROTOCOL, Starting on Thu02/24/24 at 1145, Until Thu02/26/24 at 1635 documented in this encounter Active and Recently Administered Medications Times are shown in CDT. Scheduled Medication Order 02/24/2024 02/25/2024 02/26/2024 acetaminophen (TYLENOL) tablet 975 mg 975 mg, Oral, TID, First dose (after last modification) on 02/22/24 at 1400, Until Discontinued 0748 (Given - Provider: Dante Ojeda RN)1509 (Given - Provider: Marcy Stafford RN)2124 (Given - Provider: Bradley Cordova RN) 0737 (Given - Provider: Marcy Stafford, [place])1341 (Given - Provider: Lakshmi Castro RN)1999 (Given - Provider: David Solano RN) 0836 (Given - Provider: Lakshmi Castro RN)1359 (Given - Provider: Lakshmi Castro RN) Aquaphor ointment Topical, DAILY, First dose on Thu02/25/24 at 1040, Until Discontinued 1342 (Given - Provider: Lakshmi Castro RN) 0837 (Given - Provider: Lakshmi Castro RN) DC MED REC REVIEW BY PHARMACY(Linked Group 1) Discharge Date: 02/26/2024, Discharge Location: Home, Anticipated Discharge Time: 10 am - 2 pm, Discharge Medication Orders: DC Med Orders Final, Does not apply, PROTOCOL, Starting on Thu02/25/24 at 1411, Until Thu02/26/24 at 1635 diclofenac (VOLTAREN) 1 % gel 2 g 2 g, Topical, TID, First dose on Thu02/25/24 at 1040, Until Discontinued 1340 (Not Given (removes Due time) - Provider: Lakshmi Castro RN - Reason: Medication unavailable)1352 (Given - Provider: Lakshmi Castro RN)1999 (Given - Provider: David Solano RN) 0837 (Given - Provider: Lakshmi Castro RN)1359 (Not Given (removes Due time) - Provider: Lakshmi Castro RN - Reason: Patient refused) enoxaparin (LOVENOX) 30 mg/0.3 mL injection 30 mg (CANCELED) 30 mg, Subcutaneous, DAILY, First dose on Brittany 02/18/24 at 0800, Until Discontinued 0752 (Given - Provider: Dante Ojeda RN) multivitamin + minerals (CEROVITE SENIOR) 1 tablet 1 tablet, Oral, DAILY, First dose on Thu02/24/24 at 0800, Until Discontinued 0749 (Given - Provider: Dante Ojeda RN) 0737 (Given - Provider: Marcy Stafford, [place]) 0836 (Given - Provider: Lakshmi Castro, [place]) traZODone (DESYREL) half tablet 25 mg 25 mg, Oral, BEDTIME, First dose on Thu02/24/24 at 2000, Until Discontinued 2123 (Given - Provider: Bradley Cordova RN) 1999 (Given - Provider: David Solano RN) VTE - Low Risk(Linked Group 2) Low Risk Reason: Ambulating greater than 200m Twice Daily, Does not apply, PROTOCOL, Starting on Thu02/24/24 at 1145, Until Thu02/26/24 at 1635 PRN Medication Order 02/24/2024 02/25/2024 02/26/2024 cyclobenzaprine (FLEXERIL) tablet 10 mg 10 mg, Oral, TID PRN, Starting on Thu02/17/24 at 1441, Until Thu02/26/24 at 1635, Muscle Spasm(s) oxyCODONE (ROXICODONE) tablet 5-10 mg 5-10 mg, Oral, Q4H PRN, Starting on Thu02/17/24 at 1441, Until Thu02/26/24 at 1635, Moderate Pain (Use Second) 0749 (Given - Provider: Dante Ojeda RN)2124 (Given - Provider: Bradley Cordova RN) 1352 (Given - Provider: Lakshmi Castro RN) polyethylene glycol 3350 (MIRALAX;GLYCOLAX) packet 17 g 17 g, Oral, DAILY PRN, Starting on Thu02/19/24 at 1320, Until Thu02/26/24 at 1635, Constipation (Use First) 1838 (Given - Provider: Marcy Stafford RN) sennosides (SENOKOT) tablet 8.6 mg 8.6 mg, Oral, BID PRN, Starting on Thu02/19/24 at 1320, Until Thu02/26/24 at 1635, Constipation (Use Second) Linked Groups Order Group 1: [place] MED REC REVIEW BY PHARMACYJu to med Discharge Date: 02/26/2024, Discharge Location: Home, Anticipated Discharge Time: 10 am - 2 pm, Discharge Medication Orders: DC Med Orders Final, Does not apply, PROTOCOL, Starting on Brittany 02/25/24 at 1411, Until 02/26/24 at 1635 And Discharge Med Rec Final Review by Pharmacy (COMPLETED) Routine, Order to be placed by provider after medications have been entered for discharge and are ready for review by Pharmacist. This order can be placed multiple times if changes or additions have been made to medications for discharge. Choose the Preliminary DC Med Rec review when placing orders prior to the day of discharge. Choose Final DC Med Rec when all medication changes have been entered. If DC Med Rec needed now, please page the Pharmacist covering the patient to inform them., Discharge Date: 02/26/2024, Discharge Location: Home, Anticipated Discharge Time: 10 am - 2 pm Group 2: VTE - Low RiskJump to med Low Risk Reason: Ambulating greater than 200m Twice Daily, Does not apply, PROTOCOL, Starting on 02/24/24 at 1145, Until 02/26/24 at 1635 And VTE - Low Risk Communication (CANCELED) ONCE, On 02/24/24 at 1150, For 1 occurrence, Low Risk Reason: Ambulating greater than 200m Twice Daily, Patient at low risk for VTE; neither mechanical nor chemical prophylaxis is required documented in this encounter Additional Health Concerns Assessment Noted Time PHQ-9 Depression Total Score: 5 11/02/19 9:12 AM PRIVATE DUTY LPN PHQ-2 Depression Total Score: 1 11/02/19 9:12 AM PRIVATE DUTY LPN documented as of this encounter Care Teams Supervisor Vacuum Metalizing Relationship Specialty Start Date End Date Marcela Vera MD [address] [place] [address] PCP - General Family Medicine 12/10/21 Nolberto Campos PT [address] [address] Physical Therapist Physical Therapy 12/11/21 Fatemeh Medrano, PT [address] [place] [address] Physical Therapist Physical Therapy 02/26/24 03/07/24 Fatemeh Medrano, PT [address] [place] [address] Physical Therapist Physical Therapy 02/26/24 03/07/24 documented as of this encounter
--- OUTSIDE RECORDS SUMMARY | 2024-03-26 21:00 | XMS_ITS | Encounter Summary ---
Author Organization [facility] Address [address] [place] [address] Phone Care Team Providers Care Sr Technical Sales Consultant Name Role Phone Marcela Vera MD Primary Care Provider [phone] Nolberto Campos PT Unavailable [phone] Nikki Delong PT Unavailable [phone] Reason for Visit * Reason Comments Referral U/S referral Encounter Details Date Type Department Care Team (Late st Contact Info) Description 03/16/2024 3:00 PM CDT Office Visit [facility] [address] [facility] [address] [place], [place] [id number] Brandie Burciaga, AVIONICS TEST TECHNICIAN, LIVE IN HOUSEKEEPER NANNY [address] [facility] [address] [place] [address] Controls Designer, Other-Offsite [address] [place] [address] Edema of left lower leg (Primary Dx) [...] with others, in a hotel, in a mcc, living outside on the street, on a beach, in a car, abandoned building, bus or train station, or in a park) 02/17/2024 Sex and Gender Information Value Date Recorded Sex Assigned at Female 11/05/2021 8:07 PM PIZZA MAKER Gender Identity Female 11/05/2021 8:07 PM PIZZA MAKER Sexual Orientation Straight 11/05/2021 8: 07 PM PIZZA MAKER documented as of this encounter Last Filed Vital Signs Vital Sign Reading Time Taken Comments Blood Pressure 125/69 03/16/2024 2:27 PM CDT Pulse 75 03/16/2024 2:19 PM CDT Temperature 36.9 ??C (98.4 ??F) 03/16/2024 2:19 PM CD T Respiratory Rate - - Oxygen Saturation - - Inhaled Oxygen Concentration - - Weight 51.3 kg (113 lb) 03/16/2024 2:19 PM CDT Height - - Body Mass Index 31.78 02/17/2024 1:30 PM CDT documented in this encounter Patient Instructions * Patient Instructions* Brandie Burciaga APRN, CNP - 03/16/2024 3:00 PM CDT Radiology/Imaging: Ultrasound [phone] documented in this encounter Progress Notes * Brandie Burciaga APRN, CNP - 03/16/2024 3:00 PM CDT [facility] Alondra Aguilar : 1950 Sex: female Medical Decision Makin. Edema of left lower leg/ankle Acute Left lower leg, ankle and foot, increase in swelling last 4 days or so, Spinal surgery 02/09 for scoliosis Going to PT/OT a few times a week. Yesterday Physical therapist noted foot and ankle more swollen than previous visits. Complaining of leg pain, left side only. No chest pain, SOB. Walks with walker Left calf measures 1 cm 0.5 cm difference, pain throughout leg, not specific to calf, negative Homans, no erythema When legs are up swelling decreases. Concerns suspicious for DVT: unilateral, new onset, painful, recent surgery., Pain however, at visit, does not appear solely consistent to calf area only. Describes as more of burning pain that goes up and down. Will obtain D-dimer explained does not confirm nor deny DVT, regardless will obtain Ultrasound, call to schedule. Strict instructions when to seek immediate care. And respiratory symptoms, numbness or tingling, one sided weakness - D-DIMER QUANT; Future - ULT VENOUS LOWER EXTREMITY LEFT; Future - D-DIMER QUANT No follow-ups on file. History of Present Illness: Alondra Aguilar is a 73 y.o. year old female who presents to the [facility] with concerns of left leg pain and ankle swelling. S/P elective spinal fusion T11-S2, and left L5-S1 PLIF: 02/10/24 Post-op course has been unremarkable, going to Physical therapy/OT few times a week, walks with walker, has back brace Was at PT yesterday and therapist noticed left foot and ankle appeared more swollen, was also complaining leg was more painful, both were new. Was told to make appointment for leg swelling. Denies pain specific to calf but does report leg pain and swelling over last 4-5 days. And has noticed the swelling, better with elevation Is not sharp and shooting, burning. No redness or warmth noted. No pain with palpation Denies chest pain or shortness of breath. Vitals: 03/16/24 1419 03/16/24 1427 BP: (!) 152/74 125/69 Pulse: 75 Temp: 36.9 ??C (98.4 ??F) TempSrc: Tympanic Weight: 51.3 kg (113 lb) Estimated body mass index is 31.78 kg/m?? as calculated from the following: Height as of 02/17/24: 1.27 m (4' 2). Weight as of this encounter: 51.3 kg (113 lb). Physical Exam Constitutional: Appearance: Normal appearance. HENT: Head: Normocephalic. Pulmonary: Effort: Pulmonary effort is normal. Musculoskeletal: Right lower leg: No edema. Left lower leg: No edema. Left ankle: Swelling present. Comments: Swelling around ankle only, non pitting on left, does not extend past sock line-has low socks, just above malleolus. Feet: Right foot: Skin integrity: Skin integrity normal. Left foot: Skin integrity: Skin integrity normal. Neurological: Mental Status: She is alert. Psychiatric: Mood and Affect: Mood normal. Behavior: Behavior normal. Thought Content: Thought content normal. Negative Homans Calf measurement: 32.5 cm right calf 33 cm left calf Due to a language barrier, a professional accounting file clerk was present by telephone during this encounter. [phone] documented in this encounter Plan of Treatment Upcoming Encounters Date Type Department Care Team (Late st Contact Info) Description 03/28/2024 1:00 PM CDT [facility] [address] [place] [address] Navi Verduzco PA-C [address] [address] 1, Isd[place]Martiniquais [address] [place] [address] Scheduled Discharge Disposition: Discharged to home or self care (routine discharge) 03/28/2024 2:00 PM CDT Office [facility] Armature Varnisher [address] [place] [address] Marina Vasquez, [facility] [address] [address] 1, [place]Martiniqu[place] [address] [place] [address] Scheduled Discharge Disposition: Discharged to home or self care (routine discharge) 04/01/2024 11:30 AM CDT [facility]ointment [facility] Physical Therapy [address] [place] [address] Chandler Zuniga, DO [address] [place] [address] Nikki Delong, PT [address] [place] [address] 1, [place]Martiniqu[place] [address] [place] [address] Scheduled Discharge Disposition: Discharged to home or self care (routine discharge) 04/05/2024 1:00 PM CDT [facility]ointment [facility] Physical Therapy [address] [place] [address] Chandler Zuniga, DO [address] [place] [address] Nikki Delong, PT [address] [place] [address] 1, Is[place]Martiniqu[place] [address] [place] [address] Scheduled Discharge Disposition: Discharged to home or self care (routine discharge) 04/11/2024 11:00 AM CDT [facility]ointment [facility] Physical Therapy [address] [address] Chandler Zuniga, DO [address] [address] Nikki Delong, PT [address] [place] [address] 1, Isd[place]iqu[place] [address] [place] [address] Scheduled Discharge Disposition: Discharged to home or self care (routine discharge) documented as of this encounter Procedures Procedure Name Priority Date/Time Associated Diagnosis Comments PC LAB HEME D-DIMEN QUANT Routine 03/16/2024 [...] PM CDT) D Dimer 11,499(H) <=500 ng/mL FEU [facility] Comment:D-dimer values less than or equal to 500 ng/mL Fibrinogen Equivalent Units (FEU) may be used in conjunction with clinical pre-test probability to exclude deep vein thrombosis (DVT) and/or pulmonary embolism (PE). Blood 03/16/2024 7:39 PM CDT 03/16/2024 7:39 PM CDT Brandie Burciaga APRN, CNP LABORATORY [facility] [address] [address] documented in this encounter Visit Diagnoses Diagnosis Edema of left lower leg- Primary Edema of left lower leg documented in this encounter Additional Health Concerns Assessment Noted Time PHQ-9 Depression Total Score: 5 11/02/19 9:12 AM PIZZA MAKER PHQ-2 Depression Total Score: 1 11/02/19 9:12 AM PIZZA MAKER documented as of this encounter Care Teams Sr Technical Sales Consultant Relationship Specialty Start Date End Date Marcela Vera MD [address] [place] [address] 6[address] [place] [address] PCP - General Family Medicine 12/10/21 Nolberto Campos, PT [address], [place] [address] Physical Therapist Physical Therapy 12/11/21 Nikki Delong, PT [address] [place] [address] Physical Therapist Physical Therapy 03/08/24 documented as of this encounter
--- OUTSIDE RECORDS SUMMARY | 2024-03-26 21:00 | XMS_ITS | Encounter Summary ---
Author Organization [facility] Address [address] [place] [address] Phone Care Team Providers Care Conductor/Engineer Name Role Phone Marcela Vera MD Primary Care Provider [phone] Nolberto Campos PT Unavailable [phone] Nikki Delong PT Unavailable [phone] Reason for Visit * Reason Onset Date Comments Leg Swelling 03/15/2024 Encounter Details Date Type Department Care Team (Late st Contact Info) Description 03/15/2024 Nurse Triage [facility] [address] [place] [address] Dov Bennett, RN [facility] [address] [place] [address] Leg Swelling Social History Tobacco Use Types Packs/Day Years [...] Sex Assigned at Female 11/05/2021 8:07 PM BLOWER BLAST FURNACE Gender Identity Female 11/05/2021 8:07 PM BLOWER BLAST FURNACE Sexual Orientation Straight 11/05/2021 8: 07 PM BLOWER BLAST FURNACE documented as of this encounter Miscellaneous Notes * Telephone Encounter - Dayanara Gandhi RN - 03/15/2024 3:04 PM CDT D: Call back from patient and daughter court interpreter obtained [facility] 018 Patient was seen in PT today and during therapy appointment during which the patient and daughter were advised to call back for an appointment to have the leg swelling evaluated Left ankle and foot swelling ends at the level of the ankle. The swelling started about a week ago.No pain, no change to normal breathing and no chest pain. Patient is afebrile and has normal range of motion and is also walking normally at baseline with walker as per usual A: Triage yielded disposition recommendation that the patient be seen in the next 3 days R: The patient indicates understanding of these issues and agrees to the plan. P: Future Appointments Date Time Provider Department Center 03/16/2024 3:00 PM Brandie Burciaga, PROPERTY CUSTODIAN, PLATE SENSITIZER [facility] [address] 03/23/2024 8:15 AM CSC XRAY A/B/C/D [facility] RADIOL [facility] Special 03/23/2024 9:30 AM Lucho Newsome PA-C [facility] NEUROSUR [facility] Special 03/28/2024 1:00 PM Navi Verduzco PA-C [facility] PM&R [facility] Special 03/28/2024 2:00 PM Marina aVsquez LICSW [facility] SOC SERV [facility] Special 04/01/2024 11:30 AM Nikki Delong, PT [facility] PHY THER [facility] Special 04/05/2024 1:00 PM Nikki Delong, PT [facility] PHY THER [facility] Special 04/11/2024 11:00 AM Nikki Delong, PT [facility] PHY THER [facility] Special * Telephone Encounter - Dov Bennett RN - 03/15/2024 2:22 PM CDT Nursing Note D: Daughter calling to report pt was just seen by PT who recommends a US for LE edema. Call dental receptionist very poor and unable to understand what is being said. A: Advised to call back when in a place with good dental receptionist. R: Daughter to call back later. P: Await call back and triage accordingly. Management Consulting Used: Surinamese [id number] documented in this encounter Plan of Treatment Upcoming Encounters Date Type Department Care Team (Late st Contact Info) Description 03/28/2024 1:00 PM CDT Office [facility] [address] [place] [address] Navi Verduzco PA-C [address] [place] [address] 1, Isd-Sur[place]ames[place] [address] [place] [address] Scheduled Discharge Disposition: Discharged to home or self care (routine discharge) 03/28/2024 2:00 PM CDT Office Visit [facility] Preschool Education Director [address] [place] [address] Marina Vasquez, [facility] [address] [place] [address] 1, Is[place] [address] [place] [address] Scheduled Discharge Disposition: Discharged to home or self care (routine discharge) 04/01/2024 11:30 AM CDT [facility]ointment [facility] Physical Therapy [address] [place] [address] Chandler Zuniga, DO [address] [place] [address] Nikki Delong, PT [address] [place] [address] 1, [place] [address] [place] [address] Scheduled Discharge Disposition: Discharged to home or self care (routine discharge) 04/05/2024 1:00 PM CDT [facility]ointment [facility] Physical Therapy [address] [place] [address] Chandler Zuniga, DO [address] [place] [address] Nikki Delong, PT [address] [place] [address] 1, [place] [address] [place] [address] Scheduled Discharge Disposition: Discharged to home or self care (routine discharge) 04/11/2024 11:00 AM CDT Appointment [facility] Physical Therapy [address] [address] Chandler Zuniga, DO [address] [place] [address] Nikki Delong, PT [address] [place] [address] 1, Is[place] [address] [place] [address] Scheduled Discharge Disposition: Discharged to home or self care (routine discharge) documented as of this encounter Visit Diagnoses Not on filedocumented in this encounter Additional Health Concerns Assessment Noted Time PHQ-9 Depression Total Score: 5 11/02/19 9:12 AM BLOWER BLAST FURNACE PHQ-2 Depression Total Score: 1 11/02/19 9:12 AM BLOWER BLAST FURNACE documented as of this encounter Care Teams Conductor/Engineer Relationship Specialty Start Date End Date Marcela Vera MD [address] [place] [address] [address] [place] [address] PCP - General Family Medicine 12/10/21 Nolberto Campos, PT [address] [address] Physical Therapist Physical Therapy 12/11/21 Nikki Delong, PT [address] [place] [address] Physical Therapist Physical Therapy 03/08/24 documented as of this encounter
--- OUTSIDE RECORDS SUMMARY | 2024-03-26 21:00 | XMS_ITS | Encounter Summary ---
Author Organization [facility] Address [address] [place] [place] [address] Phone Care Team Providers Care Hosiery Pairer Name Role Phone Marcela Vera MD Primary Care Provider [phone] Nolberto Campos PT Unavailable [phone] Fatemeh Medrano PT Unavailable Unavailable Fatemeh Medrano PT Unavailable Unavailable Nikki Delong PT Unavailable [phone] Encounter Details Date Type Department Care Team (Late st Contact Info) Description 02/24/2024 Documentation Only [facility] [address] [facility] [address] [place], [place] [id number] Automat Car Attendant, Services Social History Tobacco Use Types Packs/Day Years [...] with others, in a hotel, in a group home, living outside on the street, on a beach, in a car, abandoned building, bus or train station, or in a park) 02/17/2024 Sex and Gender Information Value Date Recorded Sex Assigned at Female 11/05/2021 8:07 PM COAL UNLOADER Gender Identity Female 11/05/2021 8:07 PM COAL UNLOADER Sexual Orientation Straight 11/05/2021 8: 07 PM COAL UNLOADER documented as of this encounter Plan of Treatment Upcoming Encounters Date Type Department Care Team (Late st Contact Info) Description 03/28/2024 1:00 PM CDT [facility] Rehabilitation Clinic [address] [place] [address] Navi Verduzco PA-C [address] [address] 1, Isd-Kittitian [address] [place] [address] Scheduled Discharge Disposition: Discharged to home or self care (routine discharge) 03/28/2024 2:00 PM CDT [facility] Field Service Poultry Technician [address] [place] [address] Marina Vasquez, [facility] [address] [place] [address] 1, Isd-Kittitian [address] [place] [address] Scheduled Discharge Disposition: Discharged to home or self care (routine discharge) 04/01/2024 11:30 AM CDT [facility]ointment [facility] Physical Therapy [address] [place] [address] Chandler Zuniga, DO [address] [place] [address] Nikki Delong, PT [address] [place] [address] 1, Isd-Kittitian [address] [place] [address] Scheduled Discharge Disposition: Discharged to home or self care (routine discharge) 04/05/2024 1:00 PM CDT [facility]ment [facility] Physical Therapy [address] [place] [address] Chandler Zuniga, DO [address] [place] [address] Nikki Delong, PT [address] [place] [address] 1, Isd-Kittitian [address] [place] [address] Scheduled Discharge Disposition: Discharged to home or self care (routine discharge) 04/11/2024 11:00 AM CDT [facility]ment [facility] Physical Therapy [address] [place] [address] Chandler Zuniga, DO [address] [place] [address] Nikki Delong, PT 701 [place] [address] 1, Isd-Kittitian 701 [place] [address] Scheduled Discharge Disposition: Discharged to home or self care (routine discharge) documented as of this encounter Visit Diagnoses Not on filedocumented in this encounter Additional Health Concerns Assessment Noted Time PHQ-9 Depression Total Score: 5 11/02/19 9:12 AM COAL UNLOADER PHQ-2 Depression Total Score: 1 11/02/19 9:12 AM COAL UNLOADER documented as of this encounter Care Teams Hosiery Pairer Relationship Specialty Start Date End Date Marcela Vera MD [address] [place] [address] 644 [place] [address] PCP - General Family Medicine 12/10/21 Nolberto Campos, PT [address], [place] [address] Physical Therapist Physical Therapy 12/11/21 Fatemeh Medrano, PT 701 [place] [address] Physical Therapist Physical Therapy 02/26/24 03/07/24 Fatemeh Medrano, PT 701 [place] [address] Physical Therapist Physical Therapy 02/26/24 03/07/24 Nikki Delong, PT [address] [place] [address] Physical Therapist Physical Therapy 03/08/24 documented as of this encounter
--- OUTSIDE RECORDS SUMMARY | 2024-03-26 21:00 | XMS_ITS | Encounter Summary ---
Author Organization [facility] Address [address] [facility] [place] [address] Phone Care Team Providers Care Funnel Coater Name Role Phone Marcela Vera MD Primary Care Provider [phone] Nolberto Campos PT Unavailable [phone] Fatemeh Medrano PT Unavailable Unavailable Fatemeh Medrano PT Unavailable Unavailable Nikki Delong PT Unavailable [phone] Encounter Details Date Type Department Care Team (Late st Contact Info) Description 02/23/2024 Documentation Only [facility] [address] [facility] [address] [place], [place] [id number] Ambulance Officer, Services Social History Tobacco Use Types Packs/Day [...] with others, in a hotel, in a retirement, living outside on the street, on a beach, in a car, abandoned building, bus or train station, or in a park) 02/17/2024 Sex and Gender Information Value Date Recorded Sex Assigned at Female 11/05/2021 8:07 PM OBSTETRICIAN AND GYNAECOLOGIST Gender Identity Female 11/05/2021 8:07 PM OBSTETRICIAN AND GYNAECOLOGIST Sexual Orientation Straight 11/05/2021 8: 07 PM OBSTETRICIAN AND GYNAECOLOGIST documented as of this encounter Plan of Treatment Upcoming Encounters Date Type Department Care Team (Late st Contact Info) Description 03/28/2024 1:00 PM CDT [facility] Physical Medicine & Rehabilitation Clinic [address] [place] [address] Navi Verduzco PA-C [address] [address] 1, Isd-Gibraltarian [address] [place] [address] Scheduled Discharge Disposition: Discharged to home or self care (routine discharge) 03/28/2024 2:00 PM CDT [facility] Assistant Media Planner [address] [place] [address] Marina Vasquez, [facility] [address] [place] [address] 1, Isd-Gibraltarian [address] [place] [address] Scheduled Discharge Disposition: Discharged to home or self care (routine discharge) 04/01/2024 11:30 AM CDT [facility]ointment [facility] Physical Therapy [address] [place] [address] Chandler Zuniga, DO [address] [place] [address] Nikki Delong, PT [address] [place] [address] 1, Isd-Gibraltarian [address] [place] [address] Scheduled Discharge Disposition: Discharged to home or self care (routine discharge) 04/05/2024 1:00 PM CDT [facility]ointment [facility] Physical Therapy [address] [place] [address] Chandler Zuniga, DO [address] [place] [address] Nikki Delong, PT [address] [place] [address] 1, Isd-Gibraltarian [address] [place] [address] Scheduled Discharge Disposition: Discharged to home or self care (routine discharge) 04/11/2024 11:00 AM CDT [facility]ointment [facility] Physical Therapy [address] [place] [address] Chandler Zuniga, DO [address] [place] [address] Nikki Delong, PT 701 [place] [address] 1, Isd-Gibraltarian 701 [place] [address] Scheduled Discharge Disposition: Discharged to home or self care (routine discharge) documented as of this encounter Visit Diagnoses Not on filedocumented in this encounter Additional Health Concerns Assessment Noted Time PHQ-9 Depression Total Score: 5 11/02/19 9:12 AM OBSTETRICIAN AND GYNAECOLOGIST PHQ-2 Depression Total Score: 1 11/02/19 9:12 AM OBSTETRICIAN AND GYNAECOLOGIST documented as of this encounter Care Teams Funnel Coater Relationship Specialty Start Date End Date Marcela Vera MD [address] [place] [address] 644 [place] [address] PCP - General Family Medicine 12/10/21 Nolberto Campos, PT [address] [address] Physical Therapist Physical Therapy 12/11/21 Fatemeh Medrano, PT 701 [place] [address] Physical Therapist Physical Therapy 02/26/24 03/07/24 Fatemeh Medrano, PT 701 [place] [address] Physical Therapist Physical Therapy 02/26/24 03/07/24 Nikki Delong, PT [address] [place] [address] Physical Therapist Physical Therapy 03/08/24 documented as of this encounter
--- OUTSIDE RECORDS SUMMARY | 2024-03-26 21:00 | XMS_ITS | Encounter Summary ---
Author Organization [facility] Address [address] [place] [address] Phone Care Team Providers Care Professional Driver Name Role Phone Marcela Vera MD Primary Care Provider [phone] Nolberto Campos PT Unavailable [phone] Nataliia Hobson PT Unavailable [phone] Reason for Referral * Prior Authorization (Routine) - New Request Specialty Diagnoses / Procedures Referred By Contac t Referred To Contact Physical Therapy / PHYSICAL THERAPY Diagnoses Lumbar radiculopathy Procedures PT TREATMENT PLAN Chandler Zuniga DO [address] [place] [address] Referral ID Status Reason Start Date Expiration Date V isits Requested Visits Authorized [id number] New Request 03/15/2024 06/15/2024 12 12 Reason for Visit * Consult/Test/Treat (Routine) - Closed Specialty Diagnoses / Procedures Referred By Contac t Referred To Contact Physical Therapy / PHYSICAL THERAPY Diagnoses Lumbar radiculopathy Chandler Zuniga DO [address] [place] [address] Referral ID Status Reason Start Date Expiration Date Visits Re quested Visits Authorized [id number] Closed 02/19/2024 02/18/2025 1 1 Encounter Details Date Type Department Care Team (Latest Contact Info) Description 03/15/2024 12:35 PM CDT - 03/15/2024 11:59 PM CDT Hospital Encounter [facility] Physical Therapy [address] [address] Chandler Zuniga, DO [address] [place] [phone] Nataliia Hobson, PT 701 [place] [address] 1, Isd-Mauritian 701 [place] [address] Discharge Disposition: Discharged to home or self [...] with others, in a hotel, in a jail, living outside on the street, on a beach, in a car, abandoned building, bus or train station, or in a park) 02/17/2024 Sex and Gender Information Value Date Recorded Sex Assigned at Female 11/05/2021 8:07 PM BOATWRIGHT Gender Identity Female 11/05/2021 8:07 PM BOATWRIGHT Sexual Orientation Straight 11/05/2021 8: 07 PM BOATWRIGHT documented as of this encounter Medications at [...] 02/26/2024 03/23/2024 documented as of this encounter Consult Notes * Nataliia Hobson, PT - 03/15/2024 1:00 PM CDT PHYSICAL THERAPY LUMBAR SPINE EVALUATION Alondra Aguilar : 1950 Gender: female Date of Service: 03/15/2024 Referring Diagnosis: M54.16 (ICD-10-CM) - Lumbar radiculopathy Treatment Diagnosis: S/p lumbar fusion with impaired gait and balance Certification Period: From 03/15/2024 to 06/15/2024 Onset Date: 02/10/24 (date of surgery) Referring Provider: Rozina Zuniga* Current Precautions/Contraindications: TLSO when OOB. Okay to yevs/doff at EoB Lifting restrictions: no more than 10# for 3 months [facility] Machine Washer: yes- Mauritian [[id number]] # [id number] Here with daughter Kaela SUBJECTIVE Chief Complaint: Alondra Aguilar is a 73 y.o. female who presents s/p: admitted to [facility] 02/10/24 for elective spinal fusion T11-S2, and left L5-S1 PLIF. No falls since surgery. Pain: Rating: patient did not rate pain today, not much Location: low back more on sides, mild at central, bilat L>R Duration: intermittent Characteristics: stabbing, tightness/pulling in front of hips Associated symptoms: pain can radiate to bilat glutes, groin and anterior thighs to knees Notes numbness/tingling in bilat knees Aggravating factors: walking, doing exercises Relief: Tylenol, occasional oxycodone ; voltaren cream ; lying down Functional limitations: Walking with walker - all the time (in and out of house) Going to the bathroom - unable to wipe due to brace Dressing - able to do some but needs a little help Squatting, bending - fearful of falling. Prior level of function: independent ambulation Previous treatment: [facility] 02/17/24 - 02/26/24 Current exercises: Side stepping Sit/stand Walking Going up and down stairs 4-5 Patient's goals: ambulate without AD SOCIAL HISTORY Residence: House Stairs required: No - 4-5 steps but does for exercise, not necessary. Uses railing. Assistance Available at Home: Yes - daughter all the time Equipment: Front - wheeled walker REVIEW OF SYSTEMS Denies unexplained weight loss/fever/chills, nausea/vomiting, bowel or bladder changes. Positive for: L foot is swollen, daughter reports pitting edema at ankle x 3 days. Has been elevating legs. Denies tenderness or warmth. No history of blood clots and no difficulty breathing Big toe feels painful Imaging: Yes : 02/10/24 and 02/14/24 - found in [facility] Dates of Recent Hospitalization: 02/10/24 - 02/26/24 General Health: Patient Active Problem List Diagnosis Cancer screening Scoliosis of lumbar spine Arthralgia of both hands Lumbar radiculopathy Cervical radiculopathy Essential hypertension Scoliosis of lumbar spine, unspecified scoliosis type Past Surgical History: Past Surgical History: Procedure Laterality Date REPRODUCTIVE SURGERY HISTORY Bilateral 1984 tubal Medications: Current Outpatient Medications Medication acetaminophen (TYLENOL) 325 mg oral tablet traZODone (DESYREL) 50 mg oral tablet multivitamin + minerals (CEROVITE SENIOR) oral No current facility-administered medications for this encounter. OBJECTIVE Blood pressure: 136/58 mmHg Functional Outcome Measure: 5 Time Sit to Stand The patient performed 5 sit to stands in 14.2 sec Age Norm 60-69 11.4 sec 70-79 12.6 sec 80-89 14.8 sec >12 sec in the geriatric population indicated further balance assessment for fall risk >15 sec in the geriatric population indicates that the patient may be at risk for recurrent falls Observation: enters clinic with walker. Wearing TLSO Mild edema L ankle and foot. Calf feels full /tight compared to R No redness or warmth. No tenderness to touch. No pitting edema Gait: with front wheeled walker. Good stability and upright posture Posture: upright Sit to Stand: 1 hand on walker, 1 hand on arm rest. Rises independently Without UE support: able to rise independently Squat to floor: Deferred Sit to Supine: deferred Balance: DL static balance: apprehensive but good stability without walker SL static balance: with UE support Some back pain with stance on LLE Range of Motion: deferred Strength: Left Right Comments Hip flexion 4-/5 4-/5 Knee extension 4/5 4/5 Ankle dorsiflexion 4-/5 4+/5 Joint Mobility: deferred Neurological Findings: ankle DF weakness as above - notes this precedes surgery. ASSESSMENT IMPAIRMENT / PROBLEM LIST: 1. Ambulates with walker 2. Impaired balance 3. Left lower extremity weakness 4. Left lower extremity swelling. 5. Impaired 5x sit to stand 6. TLSO Assessment: Patient is a 73 y.o. female who presents s/p lumbar fusion, wearing TLSO. Doing well, has support from daughter at home. Goal to return to independent ADLs and ambulation but fearful of instability. Some back pain but mild. The above impairments decrease their ability to perform independent ambulation, stairs and increase fall risk. Patient would benefit from skilled physical therapy to improve functional independence with self cares, community participation and independent ADLs. Eval Code History Examination of body systems Clinical Presentation Clinical Decision Making 53619 (low complexity) No personal factors or comorbidities (including sex, age, coping styles, social background, education, profession, part and current experience, overall behavior pattern, character) Addressing 1-2 elements (include body structures, body functions, psychological functions, activity limitations,or participation restrictions) Stable and/or uncomplicated Low complexity decision making 53944 (moderate complexity) 1-2 personal factors or comorbidities Addressing 3 or more elements Evolving with changing characteristics Moderate complexity decision making 74901 (high complexity) 3+ person factors or comorbidities Addressing 4+ elements Unstable and unpredictable characteristics High complexity decision making Prognosis to achieve goals: good Factors That May Modify the Freq / #of visits or Duration of Treatment: Language barrier GOALS 1. 5x sit to point of sale associate < 12 seconds to improve functional transfers by 05/15/24. 2. Independent ambulation without assistive device x 100' and no instability by 06/15/24. 3. Single leg balance x 10 seconds right and left to decrease fall risk by 06/15/24. Treatment initiated today: Treatment today consisted of functional evaluation, education on the evaluation findings and initiation of beginner self care activities. The patient participated in treatment planning and goal setting. Self care/home management: 5 minutes Discussion regarding LE swelling Elevate, ankle pumps Continue adequate water intake Regular walking Today located mostly at foot and ankle but with mild increased fullness in calf. New/acute in last 3 days. No tenderness/erythema/ difficulty breathing. Recommend contact nurse health line to r/o DVT Therapeutic exercise: 12 minutes Patient instructed in and performed a home exercise program. All exercises performed in clinic withgood reverse demonstration. Handout provided: Standing marching Light UE support X 10 Continue Standing side stepping X 10 each direction, continue Standing hip abduction With resistance band prescribed but pain, recommend without band for home. X 10 each side Seated ankle DF/PF 10 reps x 3 sets Added to HEP Repeated sit/stand 10 x without UE support 5 x with hip taps to chair - progress HEP Neuromuscular re-education: 5 minutes Balance at sink/counter Double leg balance Neutral With weight shift lateral R/L With weight shift anterior/posterior Modified tandem Static With anterior/posterior weight shift - added to HEP Gait trainin minutes With front wheeled walker, good stability With cane in R UE, advance cane with LLE 3 point initially then able to advance cane and leg together Ambulated 100' x 2 Cues for gait pattern and supervision for balance Ambulating without assistive device UE support to 1 hand by PT Lateral trunk lean, decreased gait speed Continue walker for home. Encourage regular walking program. Total Treatment Time: 32 minutes. PLAN OF CARE: To achieve short and snf functional goals, addressing the above listed impairments plan includes the following: Orders Placed This Encounter Procedures PT TREATMENT PLAN Standing Status: Standing Number of Occurrences: 6 Standing Expiration Date: 06/15/2024 Order Specific Question: Frequency of visits: Answer: 1 x week Order Specific Question: Physical Therapy location: Answer: [facility] Order Specific Question: Type of Visit? Answer: Follow Up Order Specific Question: Duration of Appointment in Minutes: Answer: 30 Order Specific Question: Schedule with: Answer: NATALIIA HOBSON [[id number]] Order Specific Question: Number of Visits patient should be scheduled for? Answer: 3 Order Specific Question: Modalities and Procedures Answer: Modalities Order Specific Question: Modalities and Procedures Answer: Procedures Order Specific Question: Procedure Answer: Functional Activities Order Specific Question: Procedure Answer: Gait Training Order Specific Question: Procedure Answer: Therapeutic Exercises Order Specific Question: Procedure Answer: Neuromuscular Re-education Order Specific Question: Procedure Answer: Manual Therapy - MFR/STM/JT.MOBS Order Specific Question: Procedure Answer: Self Care/Home Management/ADL Order Specific Question: Procedure Answer: Physical Performance Test Plan for next visit: Continue balance training, functional strengthening Gait training with cane - option for shorter cane? __ Patient and/or family appear to understand and does agree with the treatment plan and goals set. __ Physical Therapist: Nataliia Hobson, PT, 03/15/2024 9:53 AM License #: [id number] documented in this encounter Plan of Treatment Upcoming Encounters Date Type Department Care Team (Late st Contact Info) Description 03/28/2024 1:00 PM CDT [facility] Physical Medicine & Rehabilitation Clinic [address] [place] [address] Navi Verduzco PA-C [address] [address] 1, Isd-Mauritian [address] [place] [address] Scheduled Discharge Disposition: Discharged to home or self care (routine discharge) 03/28/2024 2:00 PM CDT [facility] Assistant Farm Operations Manager [address] [place] [address] Marina Vasquez, TORPEDO SPECIALIST [address] [place] [address] 1, Isd-Mauritian [address] [place] [address] Scheduled Discharge Disposition: Discharged to home or self care (routine discharge) 04/01/2024 11:30 AM CDT [facility]ointment [facility] Physical Therapy [address] [place] [address] Chandler Zuniga DO [address] [place] [address] Nataliia Hobson, PT [address] [place] [address] 1, Isd-Mauritian [address] [place] [address] Scheduled Discharge Disposition: Discharged to home or self care (routine discharge) 04/05/2024 1:00 PM CDT [facility]ointment [facility] Physical Therapy [address] [place] [address] Chandler Zuniga, [address] [place] [address] Nataliia Hobson, PT 701 [place] [address] 1, Isd-Mauritian [address] [place] [address] Scheduled Discharge Disposition: Discharged to home or self care (routine discharge) 04/11/2024 11:00 AM CDT [facility]ointment [facility] Physical Therapy [address] [place] [address] Chandler Zuniga, [address] [place] [address] Nataliia Hobson, PT 701 [place] [address] 1, Isd-Mauritian [address] [place] [address] Scheduled Discharge Disposition: Discharged to home or self care (routine discharge) documented as of this encounter Visit Diagnoses Diagnosis Lumbar radiculopathy- Primary Thoracic or lumbosacral neuritis or radiculitis, unspecified documented in this encounter Additional Health Concerns Assessment Noted Time PHQ-9 Depression Total Score: 5 11/02/19 24 9:12 AM BOATWRIGHT PHQ-2 Depression Total Score: 1 11/02/19 24 9:12 AM BOATWRIGHT documented as of this encounter Care Teams Professional Driver Relationship Specialty Start Date End Date Marcela Vera MD [address] [place] [address] PCP - General Family Medicine 12/10/21 Nolberto Campos, PT [address] [place] [address] Physical Therapist Physical Therapy 12/11/21 Nataliia Hobson, PT [address] [place] [address] Physical Therapist Physical Therapy 03/08/24 documented as of this encounter
--- OUTSIDE RECORDS SUMMARY | 2024-03-26 21:01 | XMS_ITS | Encounter Summary ---
Author Organization [facility] Address [address] [place] [address] Phone Care Team Providers Care Livestock Trader Name Role Phone Marcela Vera MD Primary Care Provider [phone]- [phone] Nolberto Campos PT Unavailable [phone] Fatemeh Medrano PT Unavailable Unavailable Fatemeh Medrano PT Unavailable Unavailable Nikki Delong PT Unavailable Encounter Details Date Type Department Care Team (Late st Contact Info) Description 02/12/2024 Orders Only Unspecified Department [place] Unknown, Provider Social History Tobacco Use Types Packs/Day Years [...] Sex Assigned at Female 11/05/2021 8:07 PM PUTTY MAKER Gender Identity Female 11/05/2021 8:07 PM PUTTY MAKER Sexual Orientation Straight 11/05/2021 8: 07 PM PUTTY MAKER documented as of this encounter Plan of Treatment Upcoming Encounters Date Type Department Care Team (Late st Contact Info) Description 03/28/2024 1:00 PM CDT [facility] [address] [phone] Navi Verduzco PA-C [address] [address] 1, Isd-Guamanian [address] [place] [address] Scheduled Discharge Disposition: Discharged to home or self care (routine discharge) 03/28/2024 2:00 PM CDT [facility] Engagement Lead [address] [place] [address] Marina Vasuqez, [facility] [address] [place] [address] 1, Isd-Guamanian [address] [place] [address] Scheduled Discharge Disposition: Discharged to home or self care (routine discharge) 04/01/2024 11:30 AM CDT [facility]ointment [facility] Physical Therapy [address] [place] [address] Chandler Zuniga, DO [address] [place] [address] Nikki Delong, PT [address] [place] [address] 1, Isd-Guamanian [address] [place] [address] Scheduled Discharge Disposition: Discharged to home or self care (routine discharge) 04/05/2024 1:00 PM CDT [facility]ment [facility] Physical Therapy [address] [place] [address] Chandler Zuniga, DO [address] [place] [address] Nikki Delong, PT [address] [place] [address] 1, Isd-Guamanian [address] [place] [address] Scheduled Discharge Disposition: Discharged to home or self care (routine discharge) 04/11/2024 11:00 AM CDT [facility]ment [facility] Physical Therapy [address] [place] [address] Chandler Zuniga, DO [address] [place] [address] Nikki Delong, PT [address] [place] [address] 1, Isd-Guamanian [address] [place] [address] Scheduled Discharge Disposition: Discharged to home or self care (routine discharge) documented as of this encounter Procedures Procedure Name Priority Date/Time Associated Diagnosis Comments TELEMETRY STRIPS 02/12/2024 8:13 AM CDT documented in this encounter Results * TELEMETRY STRIPS (02/12/2024 8:13 AM CDT) Narrative 02/12/2024 8:13 AM CDT Ordered by an unspecified provider. Provider Unknown RAD ECHO documented in this encounter Visit Diagnoses Not on filedocumented in this encounter Additional Health Concerns Assessment Noted Time PHQ-9 Depression Total Score: 5 11/02/19 9:12 AM PUTTY MAKER PHQ-2 Depression Total Score: 1 11/02/19 9:12 AM PUTTY MAKER documented as of this encounter Care Teams Livestock Trader Relationship Specialty Start Date End Date Marcela Vera MD [address] [place] [address] 644 [place] [address] PCP - General Family Medicine 12/10/21 Nolberto Campos, PT [address] [place] [address] Physical Therapist Physical Therapy 12/11/21 Fatemeh Medrano, PT [address] [place] [address] Physical Therapist Physical Therapy 02/26/24 03/07/24 Fatemeh Medrano, PT [address] [place] [address] Physical Therapist Physical Therapy 02/26/24 03/07/24 Nikki Delong, PT [address] [place] [address] Physical Therapist Physical Therapy 03/08/24 documented as of this encounter
--- OUTSIDE RECORDS SUMMARY | 2024-03-26 21:01 | XMS_ITS | Encounter Summary ---
Author Organization [facility] Address [address] [place] [address] Phone Care Team Providers Care Fish Bait Picker Name Role Phone Marcela Vera MD Primary Care Provider [phone]- [phone] Nolberto Campos PT Unavailable [phone] Encounter Details Date Type Department Care Team (Latest Contact Info) Description 02/10/2024 Travel Social History Tobacco Use Types Packs/Day Years Used Date Smoking Tobacco: Never Smokeless Tobacco: Never Alcohol Use Standard Drinks/Week Comments Never 0 (1 standard drink = 0.6 oz pur e alcohol) Humiliation, Afraid, Rape, a nd Kick questionnaire Answer Date Recorded Within the last year, have y ou been afraid of your partner or ex-partner? Patient unable to answer 02/10/2024 Within the last year, have y ou been humiliated or emotionally abused in other ways by your partner or ex-partner? Patient unable to answer 02/10/2024 Within the last year, have y ou been kicked, hit, slapped, or otherwise physically hurt by your partner or ex-partner? Patient unable to answer 02/10/2024 Within the last year, have y ou been raped or forced to have any kind of sexual activity by your partner or ex-partner? Patient unable to answer 02/10/2024 Overall Financial Resource Strain (CARDIA) Answe r Date Recorded How hard is it for you to pa y for the very basics like food, housing, medical care, and heating? Not hard at all 02/10/2024 PHQ-2 Answer Date Recorded PHQ-2 Subtotal 1 11/02/2023 Hunger Vital Sign Answer Date Recorded Within the past 12 months, y ou worried that your food would run out before you got the money to buy more. Never true 02/10/20 24 Within the past 12 months, t he food you bought just didn't last and you didn't have money to get more. Never true 02/10/2024 PRAPARE - Transportation Answer Date Re corded In the past 12 months, has l ack of transportation kept you from medical appointments or from getting medications? No 05/2024 In the past 12 months, has l ack of transportation kept you from meetings, work, or from getting things needed for daily living? No 02/10/2024 Housing Stability Answer Date Recorded What is your housing situation today? 3 - I have housing 02/10/2024 Sex and Gender Information Value Date Recorded Sex Assigned at Female 11/05/2021 8:07 PM BOAT DECKHAND Gender Identity Female 11/05/2021 8:07 PM BOAT DECKHAND Sexual Orientation Straight 11/05/2021 8: 07 PM BOAT DECKHAND documented as of this encounter Plan of Treatment Upcoming Encounters Date Type Department Care Team ([facility] st Contact Info) Description 03/28/2024 1:00 PM CDT [facility] Clinic [address] [place] [address] Navi Verduzco PA-C [address] [place] [address] [phone] 1, Isd-Qatari [address] [place] [address] Scheduled Discharge Disposition: Discharged to home or self care (routine discharge) 03/28/2024 2:00 PM CDT [facility] Refrigeration Repair Supervisor [address] [place] [address] [phone] Marina Vasquez, [facility] [employer] [address] [place] [address] 1, Isd-Qatari [address] [place] [address] Scheduled Discharge Disposition: Discharged to home or self care (routine discharge) 04/01/2024 11:30 AM CDT [facility]ment [facility] Physical Therapy [address] [place] [address] Chandler Zuniga, DO [address] [place] [address] Nikki Delong, PT [address] [place] [address] 1, Isd-Qatari [address] [place] [address] Scheduled Discharge Disposition: Discharged to home or self care (routine discharge) 04/05/2024 1:00 PM CDT [facility]ment [facility] Physical Therapy [address] [place] [address] Chandler Zuniga, DO [address] [place] [address] Nikki Delong, PT [address] [place] [address] 1, Isd-Qatari [address] [place] [address] Scheduled Discharge Disposition: Discharged to home or self care (routine discharge) 04/11/2024 11:00 AM CDT [facility]ment [facility] Physical Therapy [address] [place] [address] Chandler Zuniga, DO [address] [place] [address] Nikki Delong, PT [address] [place] [address] 1, Isd-Qatari [address] [place] [address] Scheduled Discharge Disposition: Discharged to home or self care (routine discharge) documented as of this encounter Visit Diagnoses Not on filedocumented in this encounter Additional Health Concerns Assessment Noted Time PHQ-9 Depression Total Score: 5 11/02/19 9:12 AM BOAT DECKHAND PHQ-2 Depression Total Score: 1 11/02/19 9:12 AM BOAT DECKHAND documented as of this encounter Care Teams Fish Bait Picker Relationship Specialty Start Date End Date Marcela Vera MD [address] [place] [address] 644 [place] [address] PCP - General Family Medicine 12/10/21 Nolberto Campos, PT [address] [place] [address] Physical Therapist Physical Therapy 12/11/21 documented as of this encounter
--- OUTSIDE RECORDS SUMMARY | 2024-03-26 21:01 | XMS_ITS | Encounter Summary ---
Author Organization [facility] Address [address] [place] [address] Phone Care Team Providers Care Welder Operator Name Role Phone Marcela Vera MD Primary Care Provider [phone]- [phone] Nolberto Campos PT Unavailable [phone] Fatemeh Medrano PT Unavailable Unavailable Fatemeh Medrano PT Unavailable Unavailable Nikki Delong PT Unavailable [phone] Encounter Details Date Type Department Care Team (Late st Contact Info) Description 02/11/2024 Documentation Only [facility] Noodle Press Operator Services [facility] [address] [place] [address] [address] [place] [address] Noodle Press Operator, Services Social History Tobacco Use Types Packs/Day [...] with others, in a hotel, in a assisted, living outside on the street, on a beach, in a car, abandoned building, bus or train station, or in a park) 02/17/2024 Sex and Gender Information Value Date Recorded Sex Assigned at Female 11/05/2021 8:07 PM SAXOPHONE PLAYER Gender Identity Female 11/05/2021 8:07 PM SAXOPHONE PLAYER Sexual Orientation Straight 11/05/2021 8: 07 PM SAXOPHONE PLAYER documented as of this encounter Plan of Treatment Upcoming Encounters Date Type Department Care Team (Late st Contact Info) Description 03/28/2024 1:00 PM CDT [facility] Rehabilitation Clinic [address] [place] [address] Navi Verduzco, ROSEANNE [address] [place] [address] 1, Isd-North Korean [address] [place] [address] Scheduled Discharge Disposition: Discharged to home or self care (routine discharge) 03/28/2024 2:00 PM CDT [facility] Proc Tech [address] [place] [address] OnstaMarina shen, [facility] [address] [address] 1, Isd-North Korean [address] [place] [address] Scheduled Discharge Disposition: Discharged to home or self care (routine discharge) 04/01/2024 11:30 AM CDT [facility]ment [facility] Physical Therapy [address] [place] [address] Chandler Zuniga, DO [address] [place] [address] Nikki Delong, PT [address] [place] [address] 1, Isd-North Korean [address] [place] [address] Scheduled Discharge Disposition: Discharged to home or self care (routine discharge) 04/05/2024 1:00 PM CDT [facility]ment [facility] Physical Therapy [address] [place] [address] 77[address] Chandler Zuniga, DO [address] [place] [address] Nikki Delong, PT [address] [place] [address] 1, Isd-North Korean [address] [place] [address] Scheduled Discharge Disposition: Discharged to home or self care (routine discharge) 04/11/2024 11:00 AM CDT [facility]ment [facility] Physical Therapy [address] [place] [address] 51034 Chandler Zuniga, DO [address] [place] [address] Nikki Delong, PT [address] [place] [address] 1, Isd-North Korean [address] [place] [address] Scheduled Discharge Disposition: Discharged to home or self care (routine discharge) documented as of this encounter Visit Diagnoses Not on filedocumented in this encounter Additional Health Concerns Assessment Noted Time PHQ-9 Depression Total Score: 5 11/02/19 9:12 AM SAXOPHONE PLAYER PHQ-2 Depression Total Score: 1 11/02/19 9:12 AM SAXOPHONE PLAYER documented as of this encounter Care Teams Welder Operator Relationship Specialty Start Date End Date Marcela Vera MD [address] [place] [address] 644 [place] [address] PCP - General Family Medicine 12/10/21 Nolberto Campos, PT [address], [place] [address] Physical Therapist Physical Therapy 12/11/21 Fatemeh Medrano, PT [address] [place] [address] Physical Therapist Physical Therapy 02/26/24 03/07/24 Fatemeh Medrano, PT [address] [place] [address] Physical Therapist Physical Therapy 02/26/24 03/07/24 Nikki Delong, PT [address] [place] [address] Physical Therapist Physical Therapy 03/08/24 documented as of this encounter
--- OUTSIDE RECORDS SUMMARY | 2024-03-26 21:01 | XMS_ITS | Encounter Summary ---
Author Organization [facility] Address [address] [place] [address] Phone Care Team Providers Care Regional Sales Leader Name Role Phone Marcela Vera MD Primary Care Provider [phone]- [phone] Nolberto Campos PT Unavailable [phone] Fatemeh Medrano PT Unavailable Unavailable Fatemeh Medrano PT Unavailable Unavailable Nikki Delong PT Unavailable [phone] Encounter Details Date Type Department Care Team (Late st Contact Info) Description 02/13/2024 Orders Only Unspecified Department [place] Unknown, [...] with others, in a hotel, in a snf, living outside on the street, on a beach, in a car, abandoned building, bus or train station, or in a park) 02/17/2024 Sex and Gender Information Value Date Recorded Sex Assigned at Female 11/05/2021 8:07 PM HUMAN RESOURCE CONSULTANT Gender Identity Female 11/05/2021 8:07 PM HUMAN RESOURCE CONSULTANT Sexual Orientation Straight 11/05/2021 8: 07 PM HUMAN RESOURCE CONSULTANT documented as of this encounter Plan of Treatment Upcoming Encounters Date Type Department Care Team (Late st Contact Info) Description 03/28/2024 1:00 PM CDT [facility] Rehabilitation Clinic [address] [phone] Navi Verduzco PA-C [address] [address] 1, Isd-[place] Islander [address] [place] [address] Scheduled Discharge Disposition: Discharged to home or self care (routine discharge) 03/28/2024 2:00 PM CDT [facility] Southeast Regional Sales Manager [address] [place] [address] Marina Vasquez, [facility] [address] [place] [address] 1, Isd-[place] Islander [address] [place] [address] Scheduled Discharge Disposition: Discharged to home or self care (routine discharge) 04/01/2024 11:30 AM CDT [facility]ointment [facility] Physical Therapy [address] [place] [address] Chandler Zuniga, DO [address] [place] [address] Nikki Delong, PT [address] [place] [address] 1, Isd-[place] Islander [address] [place] [address] Scheduled Discharge Disposition: Discharged to home or self care (routine discharge) 04/05/2024 1:00 PM CDT [facility]ointment [facility] Physical Therapy [address] [place] [address] 24043 Chandler Zuniga, DO [address] [place] [address] Nikki Delong, PT [address] [place] [address] 1, Isd-[place] Islander [address] [place] [address] Scheduled Discharge Disposition: Discharged to home or self care (routine discharge) 04/11/2024 11:00 AM CDT [facility]ointment [facility] Physical Therapy [address] [place] [address] Chandler Zuniga, DO [address] [place] [address] 429[address] Nikki Delong, PT [address] [place] [address] 1, Isd-[place] Islander [address] [place] [address] Scheduled Discharge Disposition: Discharged to home or self care (routine discharge) documented as of this encounter Procedures Procedure Name Priority Date/Time Associated Diagnosis Comments TELEMETRY STRIPS 02/13/2024 2:39 AM CDT documented in this encounter Results * TELEMETRY STRIPS (02/13/2024 2:39 AM CDT) Narrative 02/13/2024 2:39 AM CDT Ordered by an unspecified provider. Provider Unknown RAD ECHO documented in this encounter Visit Diagnoses Not on filedocumented in this encounter Additional Health Concerns Assessment Noted Time PHQ-9 Depression Total Score: 5 11/02/19 9:12 AM HUMAN RESOURCE CONSULTANT PHQ-2 Depression Total Score: 1 11/02/19 9:12 AM HUMAN RESOURCE CONSULTANT documented as of this encounter Care Teams Regional Sales Leader Relationship Specialty Start Date End Date Marcela Vera MD [address] [place] [address] 644 [place] [address] PCP - General Family Medicine 12/10/21 Nolberto Campos, PT [address] [place] [address] Physical Therapist Physical Therapy 12/11/21 Fatemeh Medrano, PT [address] [place] [address] Physical Therapist Physical Therapy 02/26/24 03/07/24 Fatemeh Medrano, PT [address] [place] [address] Physical Therapist Physical Therapy 02/26/24 03/07/24 Nikki Delong, PT [address] [place] [address] Physical Therapist Physical Therapy 03/08/24 documented as of this encounter
--- OUTSIDE RECORDS SUMMARY | 2024-03-26 21:01 | XMS_ITS | Encounter Summary ---
Author Organization [facility] [place] [address] [place] [address] Phone Care Team Providers Care Dog Behaviorist Name Role Phone Marcela Vera MD Primary Care Provider [phone] Nolberto Campos PT Unavailable [phone] Reason for Visit * Auth/Cert (Routine) Specialty Diagnoses / Procedures Referred By Contac t Referred To Contact SURGERY Diagnoses Scoliosis of lumbar region due to degenerative disease of spine in adult Scoliosis of lumbar region due to degenerative disease of spine in adult Procedures SPINAL FUSION POST LUMBAR/THORACIC [id number] Tushar Antoine MD [address] [place] [address] Or P4 [address] [place] [address] Referral ID Status Reason Start Date Expiration Date Visits Re quested Visits Authorized [id number] 1 1 Encounter Details Date Type Department Care Team (Latest Contact Info) Description 02/10/2024 5:35 AM CDT - 02/17/2024 1:10 PM CDT Hospital Encounter [facility] Surgery/Trauma/Neur o 1 [facility] [address] [place] [address] Tushar Antoine MD [address] [place] [address] Scoliosis of lumbar spine, unspecified scoliosis type Discharge Disposition: Discharged/transd to another rehab facility incl rehab distinct part of a hospital Social History Tobacco Use Types Packs/Day Years [...] Sex Assigned at Female 11/05/2021 8:07 PM NEONATAL INTENSIVE CARE NURSE Gender Identity Female 11/05/2021 8:07 PM NEONATAL INTENSIVE CARE NURSE Sexual Orientation Straight 11/05/2021 8: 07 PM NEONATAL INTENSIVE CARE NURSE COVID-19 Exposure Response Date Recorded In the last 10 days, have yo u been in contact with someone who was confirmed or suspected to have Coronavirus/COVID-19? No / Unsure 11/02/2023 9:28 AM NEONATAL INTENSIVE CARE NURSE documented as of this encounter Last Filed Vital Signs Vital Sign Reading Time Taken Comments Blood Pressure 92/45 02/17/2024 11:29 AM CDT Pulse 92 02/17/2024 11:29 AM CDT Temperature 35.9 ??C (96.7 ??F) 02/17/2024 8:21 AM CD T Respiratory Rate 12 02/17/2024 11:29 AM CDT Oxygen Saturation 98% 02/17/2024 11:29 AM CDT Inhaled Oxygen Concentration - - Weight 48.8 kg (107 lb 9.6 oz) 02/10/2024 5:57 A M CDT Height 128.9 cm (4' 2.75) 02/10/2024 5:57 AM CD T Body Mass Index 29.37 02/10/2024 5:57 AM CDT documented in this encounter Discharge Summaries * Emma Wesley PA-C - 02/17/2024 5:21 AM CDT NEUROSURGERY DISCHARGE SUMMARY Nuria Aguilar : 1950 Sex: female Date of Admission: 02/10/2024 Date of Discharge: 02/17/24 Disposition: [place] Primary care physician: Marcela Vera MD Attending Staff: Tushar Antoine MD No Known Drug Allergies ADMISSION DIAGNOSIS: Scoliosis of lumbar region due to degenerative disease of spine in adult DISCHARGE DIAGNOSIS (include any new and/or incidental findings): Active Problems: Scoliosis of lumbar spine, unspecified scoliosis type Resolved Problems: * No resolved hospital problems. * Incidental Findings: None Operations/Procedures: Date: 02/16/24 Procedure: Utilization of the frameless stealth navigational system for preoperative planning and intraoperative guidance for insertion of Solera KERNS coated pedicle screws at T11, T12, L1, L2, L3, L4, and L5. Ballast screws placed at S2AI bilaterally. Preparation disc space at L5-S1 for posterior lumbar interbody fusion. Insertion of Capstone spacer L5-S1. Posterior lateral arthrodesis at all levels. Pratt of local bone. Utilization of bone morphogenic protein. Extensive left L5 foraminotomy and JOSEPH type decompression HOSPITAL COURSE: Nuria Aguilar is a 73 y.o. female with minimal past medical historywho presented to Dr. Antoine's Neurosurgery clinic with complaints reflecting low back pain and left L5 radiculopathy. Imaging demonstrated levoscoliosis with extensive spondylosis, facet arthrosis,and spinal canal and neural foraminal stenosis. Patient underwent the above procedure with Dr. nAtoine on 02/15. She tolerated the procedure well. Imaging was stable post-op. Therapies recommended discharge to rehab. She discharged to [facility] on 02/16. PENDING TESTS RESULTS: None PHYSICAL EXAMINATION: BP 127/59 (Cuff Location: Left Arm) Pulse 79 Temp 36.3 ??C (97.4 ??F) (Axillary) Resp 12 Ht1.289 m (4' 2.75) Wt 48.8 kg (107 lb 9.6 oz) SpO2 92% BMI 29.37 kg/m?? Estimated body mass index is 29.37 kg/m?? as calculated from the following: Height as of this encounter: 1.289 m (4' 2.75). Weight as of this encounter: 48.8 kg (107 lb 9.6 oz). Gen: alert, NAD. Lying in bed. Pulm: no respiratory distress Cardiac: regular rate and rhythm Extrem: warm, well-perfused, no edema. Skin: no rashes, lesions. Incision healing well - picture in chart Neuro: Mental status: Alert, awake. Normal speech and language. Motor: Follows commands x4 extremities, 5/5 BUE, 2-3/5 bilateral Hip flexors, 5/5 KF/KE, PF/PF Sensory: Sensation intact in all 4 extremities Banquet Coordinator Needed: yes- Cymraes [35] PLANNED DISCHARGE ORDERS: Suture/Ronel: Location spine; Removal date: 02/19 Wound Care Plan: Location: spine; Dressing: no dressing needed, open to air, no showers until sutures removed Drains Present: None Lines: None Activity Limitations: No lifting, pushing, pulling > 10 lbs; TLSO when OOB or HOB > 30 Anticoagulation Plan: None Return to Work Recommendations: To be determined at NSGY clinic follow-up appointment. Patient to be readmitted in 30 days: No RECOMMENDATIONS AND FOLLOWUP: Neurosurgery: 02/23 and 03/23 NSGY clinic appointments Primary Care Physician: Follow up after hospital discharge Referrals: None Consultants: Not applicable DISCHARGE ORDERS Why you were at the hospital: Order Notes You were at the hospital for surgery When should I be concerned? Order Notes Always try to call your doctor first if you are experiencing any of the symptoms below: Fever (> 101.5 Degree Farenheit), chills or sweats that occur beyond 2-3 days after surgery. It is NOT unusual to have a low-grade fever (100.5 Degree Farenheit) for 2-3 days after surgery. Redness or swelling or warmth around the incision(s), NON-clear drainage from the incision, or increased pain in or around the incision. Any neurological changes in the arms or legs such as new weakness or increased pain/tingling/ numbness. Bowel or bladder incontinences/leakage that is new. Persistent or increased difficulty swallowing or speaking. Severe headache that are different in nature to prior headache and onset that are worsened with standing and better with lying down. Abdominal bloating associated with persistent nausea and vomit (often these symptoms will be accompanied with constipation or inability to have a bowel movement). Calf swelling, redness, pain or warmth as this can be a sign of a deep venous thrombosis (also known as a 'blood clot') Chest pain, difficulties breathing or cough. For life-threatening emergencies that cannot wait, please go to the nearest Emergency Room for immediate evaluation or dial 911. It is normal to experience: --increased pain in the days immediately following your surgery --stiffness, soreness, and/or muscle weakness particularly in your back and legs --incision site pain and numbness --pain at the edges of your brace or collar --difficulty sleeping --night sweats Numbness: No matter where the surgery occurs, incisions are likely to cut through or damage the nerves. The damage to these nerves may cause significant loss of sensation until the body has the chance to restore the nerves to their previous, healthy state. How long this takes will depend on how serious the damage is and the individual's own rate of healing. If a patient smokes or drinks alcohol too soon after surgery, they are more likely to experience a loss of feeling at the incision site fora longer period of time. This is because tobacco use and alcohol consumption reduces necessary oxygen and nutrients in the blood, slowing wound closure, nerve regeneration, and the overall healing process. Muscle Tension: Following your surgery, s tension is to be expected because there is a large musclethat is cut through. The brace also causes tension due to limiting the neck muscles thus the muscles are used more. Consider applying heat/ice or topical pain relievers. You may also do some gentle stretching and massage. Skin Laxity: As the swelling around your incision decreases, the skin softens and relaxes causing sagging skin. Sagging can also be more pronounced if there was a greater degree of swelling, the degree of skin elasticity and natural collagen content are low, or the tightening was suboptimal. How long this takes to return to normal will depend on how serious the damage is and the individual's own rate of healing.' An appointment has already been made: Order Notes An appointment has already been made at the neurosurgery clinic on 02/24/2024 10:10 AM (Arrive by 10:00 AM) Up as tolerated activity level. Order Notes UP TOLERATED -- Rest is an important part of healing. Save your energy by spreading out activities that make youtired. Rest as needed. -- Slowly increase your level of activity. Other Activities: Order Notes -Apply your brace while at bedside -Wear your brace at all times when out of bed or when the head of the bed is greater than 30 degrees -Be sure your brace is fit snuggly to your body -Monitor for skin breakdown under your brace -You may NOT drive while wearing your brace -Do NOT sleep with your brace - Avoid NSAIDs and smoking - No lifting, pushing, pulling greater than 10 pounds - Avoid excessive twisting or bending - OK for gentle shoulder massage and gentle shoulder stretching - Walking is encouraged - Please contact [facility] with questions, concerns, fit adjustment, or repairs of your brace at [phone] Lifting restriction Order Notes -- Do not lift more than 10 lbs for 3 MOS . (A full gallon of water is 8 pounds) You may shower Order Notes -- You may shower. Cover your incision. Regular diet Order Notes -- Eat a wide variety of foods, including fruits and vegetables, dairy, grains and meats. Caring for your wound or incision Order Notes -Leave your incision open to air (no dressing) -Do NOT get it wet until your sutures/ronel have been removed -Avoid itching or scratching. -You may apply bacitracin/neosporin for itching once your sutures/ronel have been removed -Continue to monitor for redness, swelling, or discharge Take your medicine and plan ahead for refills Order Notes - It is important that you take the medicines on your list. Work with your health care provider or pharmacist if you have questions about your medicine. - Plan ahead and use the Refill Line so that you don't run out of your medicine. It may take time to review your chart and get the medicine ordered. Prescribed narcotic pain medicine Order Notes What You Should Know About Opioid (Narcotic) Medicine: -- Your healthcare provider ordered an opioid (narcotic) medicine to treat your pain. -- The goal of your opioid medicine is NOT complete removal of pain. -- The goal is to provide for you a safe and functional life. -- Since opioids do not take away all of your pain, we will tell you of other ways you can control your pain along with the opioid medicine. -- Important information when you are taking opioid medicine: -- It is illegal to drive when you are taking opioid medicine. Even if your doctor told you to takeopioids, you cannot drive. -- This medicine may affect your ability to focus and carry out important activities such as work or parenting. -- Do NOT operate mechanical equipment while taking pain medicines that impair your judgment. -- Do not drink alcohol while using any pain medicine. -- This medicine and all medicines should be kept in a safe place to avoid the risk of theft. -- Keep all medicines, especially opioids, out of the reach of children. -- Constipation is common when taking opioids. Your doctor may order medicine to help with constipation. -- Taking opioid medicine consistently over time may make your body dependent on it. -- If this happens, the medicine should be slowly decreased by your doctor and not stopped suddenly. -- If you stop taking your opioid medicine suddenly, you may feel a flu-like illness. Taper pain medicine Order Notes Suggestions for tapering your pain medicine: -- As your pain decreases, you can go for longer times between doses. Or, take one pill instead of two. -- Take the medicine at the time of the day when you most often feel pain. This may be: when you wake up in the morning, before you start certain activities, or when you are ready for bed. Additional information about your medicines Order Notes Take Tylenol Scheduled up to 4000mg per day in 1000mg doses Take Oxycodone (narcotic pain med) and Flexeril (muscle relaxer) only as needed for severe pain. Work to decrease narcotics as your pain decreases. Pain medications will not eliminate ALL of your pain. They are meant to make your pain more tolerable. Do NOT take more than the prescribed dose Take Miralax and Senna while you are taking oxycodone to avoid constipation Call the Neurosurgery clinic for refills at [phone] Medication List START taking these medications acetaminophen 325 mg tablet Commonly known as: TYLENOL Take 2 tablets (650 mg) by mouth every 4 hours as needed for Moderate Pain. cyclobenzaprine 10 mg Commonly known as: FLEXERIL Take 1 tablet (10 mg) by mouth 3 times daily as needed for Muscle Spasm(s). oxyCODONE 5 mg tablet Commonly known as: ROXICODONE Take 1-2 tablets (5-10 mg) by mouth every 4 hours as needed for Pain. polyethylene glycol 3350 17 g Packet Commonly known as: MIRALAX;GLYCOLAX Take 17 g by mouth daily.Take 1 capful to 17 gm navi mixed with full glass of water every day as directed. senna 8.6 mg tablet Commonly known as: SENOKOT Take 1 tablet (8.6 mg) by mouth twice daily. CONTINUE taking these medications amLODIPine 5 mg Tabs Commonly known as: NORVASC Take 1 tablet (5 mg) by mouth daily. Where to Get Your Medications Information about where to get these medications is not yet available Ask your nurse or doctor about these medications acetaminophen 325 mg tablet amLODIPine 5 mg Tabs cyclobenzaprine 10 mg oxyCODONE 5 mg tablet polyethylene glycol 3350 17 g Packet senna 8.6 mg tablet Discussed diagnosis and treatment plan with the patient. Patient verbalized understanding of condition and treatment plan. Total time coordinating discharge plan > 30 minutes documented in this encounter Medications at Time of Discharge Medication Sig Dispensed Refills Start Date End Date acetaminophen (TYLENOL) 325 mg oral tabletIndications:P ain Take 3 tablets (975 mg) by mouth 3 times daily as needed for Mild Pain. Indications: PainThis is over the counter. Obtain from your local pharmacy and follow the instructions on the bottle. Do not exceed 3000 mg per day 02/25/2024 traZODone (DESYREL) 50 mg oral tabletIndications:I nsomnia Take one-half tablet (25 mg) by mouth at bedtime as needed for Sleep. 15 tablet 1 02/25/2024 oxyCODONE (ROXICODONE) 5 mg oral tabletIndications:A cute Pain Take 1 tablet every 4 hours as needed for pain. DO NOT take more than the daily maximum amount. Stop taking the oxycodone sooner if able. ?? Day - Daily Maximum: Days 1-3: 2 tablets each day; Days 4-7: 1 tablet each day. 10 tablet 02/25/2024 03/03/2024 amLODIPine (NORVASC) 5 mg oral TABSIndications:Hyp ertension Take 1 tablet (5 mg) by mouth daily. Indications: High Blood Pressure DisorderContinue to HOLD Unless PCP reintroduces medication for BP management. 30 tablet 1 02/25/2024 02/26/2024 multivitamin + minerals (CEROVITE SENIOR) oral Take 1 tablet by mouth daily. 30 tablet 1 02/26/2024 03/23/2024 amLODIPine (NORVASC) 5 mg oral TABS Take 1 tablet (5 mg) by mouth daily. 02/16/2024 02/25/2024 acetaminophen (TYLENOL) 325 mg oral tablet Take 2 tablets (650 mg) by mouth every 4 hours as needed for Moderate Pain. 02/16/2024 02/25/2024 cyclobenzaprine (FLEXERIL) 10 mg oral Take 1 tablet (10 mg) by mouth 3 times daily as needed for Muscle Spasm(s). 02/16/2024 02/25/2024 polyethylene glycol 3350 (MIRALAX;GLYCOLAX) 17 g oral packet Take 17 g by mouth daily.Take 1 capful to 17 gm navi mixed with full glass of water every day as directed. 02/17/2024 sennosides (SENOKOT) 8.6 mg oral tablet Take 1 tablet (8.6 mg) by mouth twice daily. 02/16/2024 02/25/2024 oxyCODONE (ROXICODONE) 5 mg oral tablet Take 1-2 tablets (5-10 mg) by mouth every 4 hours as needed for Pain. 02/16/2024 02/25/2024 documented as of this encounter Progress Notes * Lisa Gunn, DENTAL TECHNOLOGIST - 02/16/2024 3:55 PM CDT Physical Therapy Progress Note PT Discharge Recommendations Discharge Recommendations: Post-acute placement recommended. (per chart, pt has TIFFANY, no coverage for INDIRA) Level/type of placement (PT): Acute Rehab if meets admission criteria Barriers to placement (PT): Barriers to placement identified by case management team With chart review It appears patient is being considered for ARU Barriers to discharge to home/community: Insufficient activity tolerance;Caregiver support/supervision insufficient;High falls risk;Adaptive equipment needed for safe DC;Home setting not accessible (stairs/architectural barriers) If discharging to home, would need: Physical assistance when mobilizing (needs assist to don brace) Post discharge follow-up: Equipment Status: Equipment needs being determined PT Equipment Recommended: Front wheeled walker PM&R Recommended: S: Can you get me some water Pain Pain Rating With Activity (Numeric): (does endorse back pain - improves with mobility) O:Banquet Coordinator Used: Yes, agency or phone stationary engineer supervisor Name or Reference Number (phone): Vinnie Restrictions/Precautions Precautions: Thoracic Spine Precautions;Lumbar Spine Precautions Complies w/ Precautions?: Yes Vital Signs 02/16/2024 0015 02/16/2024 0404 02/16/2024 0748 BP: 105/49 109/55 117/51 Patient Position for BP: Lying Down Lying Down Lying Down Pulse: 81 82 75 SpO2: 93 % 95 % -- Transfer & Bed Mobility Supine to/from Sit: Minimal assist Sit to/from Stand: Minimal assist Sit to/from Stand - Method: From standard seat height;w/ Assistive device (2ww) Other (comment): Minimal assist (toilet transfer with 2ww) Gait Distance (m): 20 m (20m x 1, 15m x 1) Device: Front wheeled walker Assistance: Minimal assist Gait Quality (General): Slowed;Shuffling;Unsteady Static Standing Balance Feet Shoulder Width Eyes Open (sec): 120 (with information writer providing jose maria-cares and adjusting clothing UE support on 2ww) Seated Balance : UE support - requires assist for donning brace - is able to minimally assist Interdisciplinary Communication RN: up in chair at end of session, family ok to mobilize Family : daughter Fabiola present and participating in the session. Fall Risk Assessment: Patient is deemed high fall risk per protocol Positioning: Sitting in common area with family with TLSO donned Treatment rendered: Strengthening;Bed mobility training;Transfer training;Gait training Total treatment time: 38 minutes A: Gait raquel remains quite slowed however, is able to amb increased distance compared to previous session. Anticipate she would greatly benefit from acute rehab as she is eager to mobilize and is not at her mobility baseline. Encouraged her to ambulate short distance with family while they are present with use of walker and the gait belt - her daughter Fabiola verbalized this as well. Nuria willcontinue to benefit from skilled PT to address goals as noted below in order to safely d/c home. Problem: Decreased Transfer Skills Goal: Patient will transfer supine to/from sit Description: Patient will transfer supine to/from sit with (6) Modified [place] with logrolling technique To facilitate safe discharge to least restrictive environment by 03/03/24. Outcome: In progress Goal: Patient will transfer sit to/from stand Description: Patient will transfer sit to/from stand with (6) Modified [place] with FWW To facilitate safe discharge to least restrictive environment by 03/03/24. Outcome: In progress Problem: Decreased Ambulatory Skills Goal: Improve gait Description: Ambulate 50 meters using Front - wheeled walker with (6) Modified [place] To facilitate safe discharge to least restrictive environment by 03/03/24. Outcome: In progress Goal: Improve gait on stairs Description: Ascend/descend 3 + 6 stairs using rail with (6) Modified [place] (while carrying walker) To facilitate safe discharge to least restrictive environment by 03/03/24. Outcome: In progress P: Patient will be seen 2-4x/week until goals are met or patient is discharged. Next visit the planis to work on supine to sit, bed to chair with brace, sit to stand reps, gait with walker, review brace management ongoing. DENTAL TECHNOLOGIST Appropriate: Yes Lisa Gunn PTA 02/16/2024 Pager: [place] * Lashell Medellin PA-C - 02/16/2024 2:37 PM CDT Physical Medicine & Rehabilitation Follow-Up Nuria Aguilar : 1950 Sex: female [facility] contracted [employer] video stationary engineer supervisor used for this visit Patient states she is feeling okay, has ongoing pain, which she feels overall is improving or aboutthe same, but not worsening. She is agreeable to ongoing inpatient rehabilitation. No new complaints/concerns today Exam: Vitals: BP 117/51 (Cuff Location: Left Arm) Pulse 75 Temp 35.3 ??C (95.5 ??F) (Tympanic) Resp18 Ht 1.289 m (4' 2.75) Wt 48.8 kg (107 lb 9.6 oz) SpO2 95% BMI 29.37 kg/m?? Gen: no acute distress Pulm: breathing comfortably on room air Abd: non distended Neuro: moves 4/4 extremities, answers simple questions appropriately via stationary engineer supervisor Psych: calm, appropriate mood and affect Skin: warm and dry Impression: Nuria Aguilar is a 73 y.o. female with chronic medical conditions including hypertension, chronic low back pain, degenerative scoliosis, admitted to [facility] February 10, 2024 for elective spinal fusion T11-S2 and left L5-S1 PLIF. Had two Hemovac drains in place postoperatively, both of which have been removed. Functionally remains below baseline with regard to mobility and self-care Prior to admission: independent in mobility & ADL's, living in a house with 3 steps to enter and 6 steps inside, lives with her daughter, who can provide intermittent, but not 24-hour assistance at home. Recommendations: Continue PT to address balance, mobility, gait, transfers, safety Continue OT to address self care, ADL's, adaptive equipment Regarding disposition: Recommend ongoing rehabilitation in the acute rehabilitation setting. Patient is agreeable to plan. Per discussion with neurosurgery, patient is expected to be medically ready for transition to rehabilitation setting tomorrow. Anticipate discharge to [facility] tomorrow, 02/16. We will continue to follow and update recommendations as appropriate. Thank you for involving us inthis patient's care. Please feel free to page me with questions/concerns. Parts of this note have been dictated using [employer] dictation software. Please excuse any scientific informatics analyst errors and feel free to contact me regarding such errors or confusion regarding intended message. Lashell Medellin PA-C, CBSONNY Pager via [employer] Total time spent on this encounter, on the date of service including pre-visit review of separatelyobtained history, [id number] interaction performing medically appropriate physical exam, patient counseling/education, interpretation of diagnostic results, care coordination and documentation was 35 minutes. * Chandler Zuniga, - 02/16/2024 2:[address] [facility] Acute [facility]patient [facility] Pre-Admission Screening Diagnosis / Condition that Caused Need for Rehabilitation - s/p spinal fusion Onset Date: 02/10/2024 Medical History and Status, Comorbidities, Complications- Nuria Aguilar is a 73 y.o. female with chronic medical conditions including hypertension, chronic low back pain, degenerative scoliosis, [facility] [facility] February 10, 2024 for elective spinal fusion T11-S2 and left L5-S1 PLIF. Had two Hemovac drains in place postoperatively, both of which have been removed. Functionally remains below baseline with regard to mobility and self-care Ongoing Medical Management Needs / Risk for Clinical Complications Fall assessment and prevention for patient safety [...] use of equipment and prosthetic/orthotics as appropriate Mental Status- alert Premorbid Function: independent in mobility and ADL's Current Level of Function Mobility -min assist bed mobility and short distance ambulation with front wheeled walker Self Care -max assist toileting, max assist upper body dressing, max assist lower body dressing Cognition/Communication-no concerns Swallow -no concerns Support System Daughter supportive, can provide intermittent, but not 24-hour care at home Patient's preferred primary contact: Daughter Rehabilitation Prognosis- good Scope of Services Recommended and Intensity/Frequency/Duration of Services Recommended- PT- Total of 1.5 hours/day, 5 days/week or 7.5 hours/week for 10 days OT- Total of 1.5 hours/day, 5 days/week or 7.5 hours/week for 10 days Related to the scope and intensity of the services recommended: The person served is willing to participate- yes The person served is able to tolerate the proposed care- yes Acute Rehabilitation level of care is medically necessary- yes The potential of the person served to benefit from acute rehabilitation is good Expected Level of improvement- progression to modified independent with mobility and ADL's Estimated Length of Stay- 10 days Anticipated Discharge Destination: home Additional Services: Rehabilitation Psychology Above acute rehab preadmission screen reviewed. I agree that acute rehab is medically necessary. I concur with above documentation regarding breadth and intensity of services, rehab goals, ELOS, rehab potential and patient's willingness to participate. Chandler Zuniga DO, 02/17/2024 7:29 AM * Destiny Bojorquez OTR/Jordon - 02/16/2024 11:30 AM CDT Occupational Therapy Progress Note 02/16/2024 OT Discharge Recommendations Discharge Recommendations: Post-acute placement recommended Level/type of placement (OT): Acute Rehab if meets admission criteria Post Discharge Follow-up: OT at post-acute placement Equipment Recommended: Equipment needs to be determined at next level of care OT In-patient follow-up / recommended referrals: Continue skilled OT services to achieve the goals on the plan of care / maximize safety and independence with ADL's / IADL's: - Recommended Frequency: 3-5 x per week - Anticipated Duration of OT services: throughout hospital stay - Interventions: ADL retraining, activity tolerance, functional mobility, strengthening, and DME / Adaptive Equipment needs assessment PM&R Consult Recommended: Yes, for assessment of post-acute placement needs. Pt appears to be acandidate for higher intensity rehab services Precautions/Restrictions: Activity Level: Up Ad [place] (02/13/24 1000) Spinal Precautions: TLSO - OK to don in sitting (needs to stand to be fit for brace) (02/13/24 1000) Banquet Coordinator Used: Yes, agency or phone stationary engineer supervisor SUBJECTIVE: I don't have as much warning since surgery. When I have to go it comes right away. Pain Pain Rating With Activity (Numeric): 4/10 Location: back Participation Significantly Limited?: No Action Taken: Repositioned patient with reported relief;Nursing aware and addressing OBJECTIVE: Activities of Daily Living Eating: Independent Grooming: Supervision/Stand by assist Grooming Comments: 1 task seated; 1 task at sink Toileting: Maximal assist (25% patient effort) Toileting Comments: external catheter; assist for clothing mgmt and hygiene d/t difficulty with reach when using toilet; education on progressing to bathroom use over external catheter Upper Body Dressing: Maximal assist (25% patient effort) Upper Body Dressing Comments: TLSO Lower Body Dressing: Maximal assist (25% patient effort) Lower Body Dressing Comments: socks; limited tolerance in attempt at figure 4 position Functional Mobility Supine to/from Sit: Moderate assist (50% patient effort) Sit to/from Stand : Minimal assist (75% patient effort) Sit to/from Stand - Method: w/ Assistive device Toilet Transfer: Minimal assist (75% patient effort) Toilet Transfer- Method: Grab bar Bed to Bathroom: Minimal assist (75% patient effort) (extended time) Bed to Bathroom- Method: Front wheeled walker Functional Mobility in Room- Task Done: in toussaint Functional Mobility in Room: Minimal assist (75% patient effort) (extended time) Functional Mobility in Room- Method: Front wheeled walker Cognition Mental Status: Oriented x 3;Alert;Cooperative;Follows 1 step direction;Follows 2 step directions Delirium assessment: Confusion Assessment Method (CAM) Delirium prevention / intervention appears indicated? Interventions provided: - engaged pt in functional tasks - provided re-orientation - promoted mobility - promoted day / night sleep schedule (keeping pt awake during the day) Patient / Caregiver Training: Interdisciplinary Communication: RN: jen to see pt; weaning use of external catheter when able; pt requesting to sit up in chair out at end of toussaint by window at end of session ASSESSMENT: Pt continues with good motivation for therapy participation. Encouragement, grading and extended time to allow pt to attempt tasks at greater level of independence. Pain improving and now with drainsremoved. This patient will continue to benefit from skilled OT services for ADL retraining, activity tolerance, functional mobility, and DME / Adaptive Equipment needs assessment to maximize independence and safety with ADLs. PLAN: Continue skilled OT services to achieve the goals on the plan of care: Plan For Next OT Session: --ADLs: LB dressing compensatory strategies and Progress from seated to standing level ADLs as able --Functional Mobility/Transfers: Walker safety --DME/AE recommendations: Dressing equipment Total treatment time: 40 minutes OT interventions and time spent on each: Self care/Home mgmt/ADL: 40 minutes Destiny Posey, OTR/L Pager: [place] OT Department * Sylvie Tamayo CO - 02/16/2024 9:11 AM CDTSummary: Brace adjusted [facility] Nuria Aguilar was seen at [facility] in rm #[phone] for evaluation of fit on current custom TLSO. Patient was fit bedside and trimlines looks appropriate. Patient states that TLSO was too high, hitting her armpits and chin. Patient was educated through interpretor that multiple readjustments throughout the day are normal. Patient states the brace feels good at this time. Staff was educated on proper donning. Patient will be followed as needed. Sylvie Tamayo [phone] * Yoandy Magaña - 02/16/2024 7:59 AM CDTSummary: Post Acute Referrals Post Acute Referrals Referrals to post acute placement have been sent. Updates about referral status can be seen below .This note will continue to be updated by the case management team. Addendum history can be seen below. Barrier: E-MA with [employer] discount. [facility] is the ONLY rehab option. No coverage for HH/DME/TCU Continued Care and Services - Admitted Since 02/10/2024 Destination Service Provider Request Status Selected Services Address Phone Fax Patient Preferred [facility] [phone] Considering Need clinical review, Need insurance authorization N/A [address] [place] [id number] -- -- Internal Comment last updated by Yoandy Magaña 02/16/2024 [id number] Per PM&R note from 02/14 She will likely make an excellent candidate for [facility] pending removal of drains x2, ongoing therapy needs, medical stability, and confirmation of payor source (uncompensated care?). Our team will continue to follow and update recommendations appropriately. Home Medical Care No active coordination exists for this encounter. * Juanita Alexander MD - 02/16/2024 5:42 AM CDT NEUROSURGERY INPATIENT PROGRESS NOTE: NEUROSURGICAL INJURIES: Scoliosis of lumbar region due to degenerative disease of spine in adult NEUROSURGICAL OPERATIONS: SPINAL FUSION POST LUMBAR/THORACIC W/[id number] T11-S2/iliac crest fusion with posterior lumbar interbody fusion and cell saver OTHER CO-MORBIDITIES AND DIAGNOSES: htn Subjective: L HV drain removed yesterday w/o complication. Problem w/TLSO fit. NAEO. No BM for a few days. Objective: Physical exam: BP 109/55 (Cuff Location: Left Arm) Pulse 82 Temp 37.1 ??C (98.7 ??F) (Axillary) Resp 18 Ht1.289 m (4' 2.75) Wt 48.8 kg (107 lb 9.6 oz) SpO2 95% BMI 29.37 kg/m?? Gen: alert, NAD. Lying in bed. Pulm: no respiratory distress Cardiac: regular rate and rhythm Extrem: warm, well-perfused, no edema. Skin: no rashes, lesions. Neuro: Mental status: Alert, awake. Oriented to self, date, and place. Normal speech and language. Motor: Follows commands x4 extremities, 5/5 poultry debeaker strength and plantar/dorsiflexion bilaterally Sensory: Sensation intact in all 4 extremities Imaging was reviewed, uprights stable. Laboratory assessments were reviewed, hgb is stable. Assessment: Nuria Aguilar is a 73 y.o. female admitted on 02/10/2024 after T11- S2AI posterior segmental fusion with deformity correction and left insertion L5- S1 PLIF. TLSO w/stable uprights. Her recovery is slow, but progressing. Plan: Today, we are planning on removing the second drain and contacting Ananda to reassess the fit of there TLSO. Plan: - HV x 1 - removal of left sided hemovac drain today - Ancef while the drain is in - PT/OT - TLSO Brace - Winkley to reasses fit - Electrolytes - Sodium goal = Normonatremia - Monitor and replete electrolytes - Diet: Regular diet as able, increased bowel regimen - Therapies: PT/OT - DVT prophylaxis: SCDs, okay to hold chemoprophylaxis - Disposition: Floor Staffed with Dr. Johnny Fisher. Juanita Alexander MD, 02/16/2024 5:42 AM EM PGY-2 Surgery Discharge Milestones (Inpatient Primary Team only): * Tushar Antoine MD - 02/16/2024 12:00 [place] [address] [facility]#: [id number] PATIENT: NURIA FOX : 1950 DATE DICTATED: 02/17/2024 SURGERY STAFF DAILY PROGRESS NOTE DATE OF SERVICE: 02/16/2024 I saw and evaluated the patient. I discussed management with residents, MATCHER OFFBEARER, and PAs on the Neurosurgery team and agree with documented findings and plan. Ms. Bridget Aguilar looks extremely good. She states her pain is better. She has been up walking with therapies and with her family. She is going to go to [facility] tomorrow. She is neurologically stable and intact. Her hemoglobin has been relatively stable. Postoperative x-rays look satisfactory. She remains under very close neurologic observation. Tushar Antoine MD Staff Physician Surgery Service Received in [place] Supervisor: 02/17/2024 12:21:49 M: /[id number] WG/MODL * Destiny Bojorquez OTR/Jordon - 02/15/2024 12:00 PM CDT Occupational Therapy Progress Note 02/15/2024 OT Discharge Recommendations Discharge Recommendations: Post-acute placement recommended Level/type of placement (OT): Acute Rehab if meets admission criteria Post Discharge Follow-up: OT at post-acute placement Equipment Recommended: Equipment needs to be determined at next level of care OT In-patient follow-up / recommended referrals: Continue skilled OT services to achieve the goals on the plan of care / maximize safety and independence with ADL's / IADL's: - Recommended Frequency: 3-5x per week - Anticipated Duration of OT services: throughout hospital stay - Interventions: ADL retraining, activity tolerance, functional mobility, strengthening, and DME / Adaptive Equipment needs assessment PM&R Consult Recommended: Yes, for assessment of post-acute placement needs. Pt appears to be acandidate for higher intensity rehab services Precautions/Restrictions: Activity Level: Up Ad [place] (02/13/24 1000) Spinal Precautions: TLSO - OK to don in sitting (needs to stand to be fit for brace) (02/13/24 1000) Banquet Coordinator Used: Yes, agency or phone stationary engineer supervisor SUBJECTIVE: Pain Pain Rating With Activity (Numeric): 5/10 Location: back; BLE Participation Significantly Limited?: No Action Taken: Repositioned patient with reported relief;Nursing aware and addressing OBJECTIVE: Activities of Daily Living Eating: Supervision/Stand by assist Grooming: Supervision/Stand by assist Grooming Comments: seated Toileting: Dependent (less than 25% patient effort) Toileting Comments: external catheter Upper Body Dressing: Maximal assist (25% patient effort) Upper Body Dressing Comments: TLSO Lower Body Dressing: Dependent (less than 25% patient effort) Lower Body Dressing Comments: socks Functional Mobility Supine to/from Sit: Moderate assist (50% patient effort) Sit to/from Stand : Minimal assist (75% patient effort) Sit to/from Stand - Method: w/ Assistive device Toilet Transfer: Moderate assist (50% patient effort) Toilet Transfer- Method: Grab bar Bed to Bathroom: Minimal assist (75% patient effort) (extended time) Bed to Bathroom- Method: Front wheeled walker Functional Mobility in Room- Task Done: in toussaint Functional Mobility in Room: Minimal assist (75% patient effort) (extended time) Functional Mobility in Room- Method: Front wheeled walker Cognition Mental Status: Oriented x 3;Alert;Cooperative;Follows 1 step direction;Follows 2 step directions Delirium assessment: Confusion Assessment Method (CAM) Delirium prevention / intervention appears indicated? Interventions provided: - engaged pt in functional tasks - promoted mobility Patient / Caregiver Training: Interdisciplinary Communication: RN: jen to see pt HCA: pt up in chair at end of session eating lunch; assist to return to bed after ASSESSMENT: Pt tolerating increased mobility for adls this date. Extended time for all tasks, however tolerating increased duration in standing and with less assist. Continues with pain at surgical site and at times intermittently into leg, however tolerable for participation. This patient will continue to benefit from skilled OT services for ADL retraining, activity tolerance, functional mobility, strengthening, and DME / Adaptive Equipment needs assessment to maximize independence and safety with ADLs. PLAN: Continue skilled OT services to achieve the goals on the plan of care: Plan For Next OT Session: --ADLs: LB dressing compensatory strategies, Toileting strategies, and Progress from seated to standing level ADLs as able --Functional Mobility/Transfers: Bed mobility and Walker safety --DME/AE recommendations: Dressing equipment and Toileting equipment --Brace Training/Management Total treatment time: 38 minutes OT interventions and time spent on each: Self care/Home mgmt/ADL: 38 minutes Destiny Posey OTR/L Pager: [facility] OT Department * Jake Pena MD - 02/15/2024 6:42 AM CDT NEUROSURGERY INPATIENT PROGRESS NOTE: NEUROSURGICAL INJURIES: Scoliosis of lumbar region due to degenerative disease of spine in adult NEUROSURGICAL OPERATIONS: SPINAL FUSION POST LUMBAR/THORACIC W/[id number] T11-S2/iliac crest fusion with posterior lumbar interbody fusion and cell saver OTHER CO-MORBIDITIES AND DIAGNOSES: HTN Subjective: NAEO. Doing well overall. Objective: Physical exam: BP 111/55 (Cuff Location: Left Arm) Pulse 78 Temp 37 ??C (98.6 ??F) (Tympanic) Resp 16 Ht 1.289 m (4' 2.75) Wt 48.8 kg (107 lb 9.6 oz) SpO2 97% BMI 29.37 kg/m?? Gen: alert, NAD. Lying in bed. Pulm: no respiratory distress Cardiac: regular rate and rhythm Extrem: warm, well-perfused, no edema. Skin: no rashes, lesions. Neuro: Mental status: Alert, awake. Oriented to self, date, and place. Normal speech and language. Motor: Follows commands x4 extremities, 5/5 poultry debeaker strength and plantar/dorsiflexion bilaterally Sensory: Sensation intact in all 4 extremities Imaging was reviewed. Laboratory assessments were reviewed. Assessment: Nuria Aguilar is a 73 y.o. female admitted on 02/10/2024 after T11- S2AI posterior segmental fusion with deformity correction and left insertion L5- S1 PLIF. Plan: Continue to work with therapies. Plan: - HV x 2- potential removal of left sided hemovac drain today - Ancef while the drain is in - PT/OT - TLSO Brace - UXR T and L spine with TLSO brace donned- completed - Electrolytes - Sodium goal = Normonatremia - Monitor and replete electrolytes - Diet: Regular diet as able - Therapies: PT/OT - DVT prophylaxis: SCDs, okay to hold chemoprophylaxis - Disposition: Floor Staffed with Dr. Fisher, neurosurgery chief resident. Jake Pena MD, 02/15/2024 6:42 AM Neurosurgery Resident PGY3 Surgery Discharge Milestones (Inpatient Primary Team only): * Lalit Ron MD - 02/15/2024 12:00 [place] [address] [facility]#: [id number] PATIENT: NURIA FOX : 1950 DATE DICTATED: 02/15/2024 SURGERY STAFF DAILY PROGRESS NOTE DATE OF SERVICE: 02/15/2024 I saw and evaluated the patient. I discussed management with residents, MATCHER OFFBEARER, and PAs on the Neurosurgery team and agree with documented findings and plan. Nuria is recovering from a T11-S2 fusion with Dr. Antoine. Her upright x-rays are stable. She is moe TLSO. We removed 1 of her Hemovac's today. She is making slow and gradual progress. Lalit Ron MD Staff Physician Neurosurgery Service Received in [place] Supervisor: 02/15/2024 20:16:11 M: /[id number] TB/MODL * Juanita Alexander MD - 02/14/2024 2:18 PM CDT NEUROSURGERY INPATIENT PROGRESS NOTE: NEUROSURGICAL INJURIES: Scoliosis of lumbar region due to degenerative disease of spine in adult NEUROSURGICAL OPERATIONS: SPINAL FUSION POST LUMBAR/THORACIC W/[id number] T11-S2/iliac crest fusion with posterior lumbar interbody fusion and cell saver OTHER CO-MORBIDITIES AND DIAGNOSES: htn Subjective: NAEO. Reports she did not sleep well last night, because she awoke to pain around 3am. Objective: Physical exam: BP 107/59 (Cuff Location: Left Arm) Pulse 82 Temp 35.9 ??C (96.6 ??F) (Tympanic) Resp 18 Ht1.289 m (4' 2.75) Wt 48.8 kg (107 lb 9.6 oz) SpO2 95% BMI 29.37 kg/m?? Gen: alert, NAD. Lying in bed. Pulm: no respiratory distress Cardiac: regular rate and rhythm Extrem: warm, well-perfused, no edema. Skin: no rashes, lesions. Neuro: Mental status: Alert, awake. Oriented to self, date, and place. Normal speech and language. Motor: Follows commands x4 extremities, 5/5 poultry debeaker strength and plantar/dorsiflexion bilaterally Sensory: Sensation intact in all 4 extremities Imaging was reviewed. Laboratory assessments were reviewed. Assessment: uNria Aguilar is a 73 y.o. female admitted on 02/10/2024 after T11- S2AI posterior segmental fusion with deformity correction and left insertion L5- S1 PLIF. Plan: Today, we are planning on TLSO and encouraging work w/PT/OT. Plan: - HV x 2 - Ancef while the drain is in - PT/OT - TLSO Brace - UXR T and L spine with TLSO brace donned - Electrolytes - Sodium goal = Normonatremia - Monitor and replete electrolytes - Diet: Regular diet as able - Therapies: PT/OT - DVT prophylaxis: SCDs, okay to hold chemoprophylaxis - Disposition: Floor Staffed with Juanita Hanson, MD, 02/14/2024 2:18 PM EM PGY-2 Surgery Discharge Milestones (Inpatient Primary Team only): Associated attestation - Guru Robins MD - 02/14/2024 6:40 PM CDT 73-year-old female status post a T11-S2 AI screws. Postoperatively her pain is being managed however with the we are waiting on TLSO brace so that we can obtain up the x-ray clinically she is otherwise doing well her hemoglobin is stable * Jan Mendoza CO - 02/14/2024 1:12 PM CDT Ananda Shipman followed up on fitting of custom #6 TLSO. The patient was wearing the TLSO and ambulating and her daughter interpreted. The patient stated she had no c/o fit and no questions. Follow up PRN. Jan Mendoza - CHRONIC CONDITION NURSE * Jan Mendoza CO - 02/13/2024 6:58 PM CDT Ananda Shipman saw patient to fit with custom #6 TLSO. The Rn and daughter were present helped as patient was fit while standing, then sat on bed. Fit looks initially proper, may need adjustment as patient wears TLSO. Call Ananda with any questions. Jan Mendoza - CHRONIC CONDITION NURSE * Jan Mendoza CO - 02/13/2024 11:36 AM CDT R4.122 Consult from Neurosurg. Ananda Shipman saw patient with OT and RN present and video stationary engineer supervisor and scanned patient while standing while using walker for custom one piece TLSO. The TLSO may, might be ready at end of day, otherwise some time tomorrow AM. Call Ananda with any questions. Jan Mendoza - CHRONIC CONDITION NURSE * Juanita Alexander MD - 02/13/2024 6:01 AM CDT NEUROSURGERY INPATIENT PROGRESS NOTE: NEUROSURGICAL INJURIES: Scoliosis of lumbar region due to degenerative disease of spine in adult NEUROSURGICAL OPERATIONS: SPINAL FUSION POST LUMBAR/THORACIC W/[id number] T11-S2/iliac crest fusion with posterior lumbar interbody fusion and cell saver OTHER CO-MORBIDITIES AND DIAGNOSES: htn Subjective: Feeling better today. Slept well. Pain well-controlled. Not utilizing CADD often. Objective: Physical exam: BP 125/61 (Cuff Location: Left Arm) Pulse 96 Temp 37.4 ??C (99.3 ??F) (Axillary) Resp 16 Ht1.289 m (4' 2.75) Wt 48.8 kg (107 lb 9.6 oz) SpO2 96% BMI 29.37 kg/m?? Gen: alert, NAD. Lying in bed. Pulm: no respiratory distress Cardiac: regular rate and rhythm Extrem: warm, well-perfused, no edema. Skin: no rashes, lesions Neuro: Mental status: Alert, awake. Oriented to self, date, and place. Normal speech and language. Motor: Follows commands x4 extremities, intact but pain-limited poultry debeaker strength and plantar/dorsiflexion bilaterally Sensory: Sensation intact in all 4 extremities Imaging was reviewed. Laboratory assessments were reviewed. Assessment: Nuria Aguilar is a 73 y.o. female admitted on 02/10/2024 after T11- S2AI posterior segmental fusion with deformity correction and left insertion L5- S1 PLIF. Plan: Today, we are planning on getting TLSO placed and encouraging pt to work w/PT/OT. Plan: - HV x 2 - Ancef while the drain is in - PT/OT - TLSO Brace - UXR T and L spine with TLSO brace donned - Electrolytes - Sodium goal = Normonatremia - Monitor and replete electrolytes - Diet: Regular diet as able - Therapies: PT/OT - DVT prophylaxis: SCDs, okay to hold chemoprophylaxis - Disposition: Floor Staffed with Juanita Mosqueda MD, 02/13/2024 6:02 AM EM PGY-2 Surgery Discharge Milestones (Inpatient Primary Team only): * Tushar Antoine MD - 02/13/2024 12:00 [place] [address] [facility]#: [id number] PATIENT: NURIA FOX : 1950 DATE DICTATED: 02/13/2024 SURGERY STAFF DAILY PROGRESS NOTE DATE OF SERVICE: 02/13/2024 I saw and evaluated the patient. I discussed management with residents, MATCHER OFFBEARER, and PAs on the Neurosurgery team and agree with documented findings and plan. Ms. Bridget Aguilar is doing better today. Her pain is under better control. She is sitting up and eating her breakfast. Her hemoglobin is 8.8. Hopefully, her brace will arrive and she can start getting out of bed today. The importance of getting out of bed has been stressed to the patient. Tushar Antoine MD Staff Physician Surgery Service Received in [place] Supervisor: 02/13/2024 10:25:16 M: /[id number] /MODL * Johnny Ortega, PT - 02/12/2024 4:18 PM CDT PT order to eval and treat received. Chart reviewed. The pt still does not has his brace. PT returned the pt to new evaluation list and the evaluation will happen after brace issued. Johnny Ortega, PT, 02/12/2024 4:19 PM * Madelin Garcia OTR/Jordon - 02/12/2024 3:23 PM CDT OT order received, chart reviewed. Per RN, patient has not been fitted for brace yet. Will hold OT evaluation until patient is braced, as per activity orders. Madelin Garcia, OTR/L, 02/12/2024 3:24 PM * Nolberto Gonzalez MDIV - 02/12/2024 12:42 PM CDTSummary: Anointing of the Sick sacrament by Fr. Arvizu 02/12/24 Spiritual Care Note Nuria Aguilar : 1950 Sex: female LOS: 2 days Summary: Anointed. Daughter present. Plan: Chaplains are available as needed. Nolberto Gonzalez MDIV, 02/12/2024 12:42 PM Pager: [phone] * Lai Jewell - 02/12/2024 9:49 AM CDT Nuria was seen in room R4.122 to attempt to scan for custom TLSO post-surgically. Her nurse was present at the time of visit to assist with getting her up. She demonstrated that she was unable to stand at this time due to some lower extremity weakness. Pain was reported as manageable via stationary engineer supervisor. Will return later today to attempt again. Lai Jewell CHRONIC CONDITION NURSE [facility] O&P [phone] * Tushar Antoine MD - 02/12/2024 12:00 [place] [address] [facility]#: [id number] PATIENT: NURIA FOX : 1950 DATE DICTATED: 02/13/2024 SURGERY STAFF DAILY PROGRESS NOTE DATE OF SERVICE: 02/12/2024 I saw and evaluated the patient. I discussed management with residents, MATCHER OFFBEARER, and PAs on the Neurosurgery team and agree with documented findings and plan. Ms. Bridget Aguilar is doing fairly well. We still do not have her TLSO brace. She has good strength throughout. Her biggest complaint is some left hip pain, which is probably due to positioning. Herhemoglobin is 9.0. I spoke to her and her family at length. Hopefully, we will get a brace tomorrowand be able to get her out of bed and get her more active. Tushar Antoine MD Staff Physician Surgery Service Received in [place] Supervisor: 02/13/2024 10:04:04 M: /[id number] WG/MODL * Valarie Kaba RN - 02/11/2024 8:57 PM CDT Blood draw completed at 2039 and sent to lab for hgb recheck. Valarie Kaba RN, 02/11/2024 8:57 PM * Yoandy Magaña - 02/11/2024 11:28 AM CDTSummary: Care Coordination Assessment Care Coordination Assessment Expected DC Date: 02/16/2024 Social Information Banquet Coordinator Used: None needed Decision Maker at Admission: Self Living Situation: Home (Lives in a house with 2 daughters. 2 flights of stairs. 2-story home) Patient Identified Support System: Daughters and sister. They work so unable to provide 24/7 cares Services Receiving: None Complex Medical Needs: None Transportation Used for Discharge: Family Safety Concerns: None Behavioral Health Concerns: None Patient Family Goals Patient's Discharge Goal: Home Family's Discharge Goal: Home Plan/Interventions Expected Discharge Disposition: Home or Self Care Was Patient Choice Provided?: No Who was Choice Provided to?: Other (comment) Patient preference?: Other (comment) Patient Information Verification Verified demographic information, including SSN, Next of Kin, and Guardianship: Yes Verified PCP: Yes If post-acute placement is needed, have vaccination status needs been addressed?: Not applicable Risks for Readmission: None manager application will continue to follow until DC SUMMARY Patient lives with family Is patient OK with Post Acute placement? She does NOT have insurance for TCU/DMEs/HH. If she needs rehab, [facility] is the ONLY option. Patient says his/her PCP is: Marcela Vera MD [facility] notification sent via Care Everywhere * Dar Davis CO - 02/11/2024 11:19 AM CDT [facility] O&P Patient was seen to attempt TLSO evaluation. She will be receiving blood shortly and we will returntomorrow to re attempt TLSO evaluation. Amadeo Cheng CHRONIC CONDITION NURSE [facility] O[facility]P [phone] * Jake Pena MD - 02/11/2024 6:22 AM CDT NEUROSURGERY PROGRESS NOTE Nuria Aguilar : 1950 Sex: female Assessment: Nuria Aguilar is a 73 y.o. female admitted on 02/10/2024 after T11- S2AI posterior segmental fusion with deformity correction and left insertion L5- S1 PLIF. Plan: - Pain control- okay for CADD - HV x 2 - Ancef while the drain is in - PT/OT - TLSO Brace - UXR T and L spine with TLSO brace donned - Electrolytes - Sodium goal = Normonatremia - Monitor and replete electrolytes - Diet: Regular diet as able - Therapies: PT/OT - DVT prophylaxis: SCDs, okay to hold chemoprophylaxis - Disposition: Floor Patient assessment and plan were discussed with the chief resident, Dr. Fisher Please contact the Neurosurgery resident on-call with any questions or new concerns. Jake Pena MD, 02/11/2024 6:22 AM Neurosurgery PGY3 Subjective: No acute events overnight. Reports of pain in back and hips. Objective: BP (!) 75/50 (Cuff Location: Left Arm) Pulse 97 Temp 35.7 ??C (96.3 ??F) (Axillary) Resp 20 Ht 1.289 m (4' 2.75) Wt 48.8 kg (107 lb 9.6 oz) SpO2 99% BMI 29.37 kg/m?? General: No acute distress, lying in bed HEENT: Normocephalic, atraumatic. Pulmonary: Breathing normally on room air. Chest/Abdomen: Chest rise symmetric with inspiration. Abdomen soft, nontender, nondistended. Neurological: Mental status: Alert, awake. Oriented to self, date, and place. Normal speech and language. GCS15 Cranial Nerves: II-XII fully intact Motor: Follows commands in all four extremities Upper Extremities: RUE: 5/5 shoulder abduction. 5/5 elbow flex/ext. 5/5 wrist flex/ext. 5/5 hand poultry debeaker. LUE: 5/5 shoulder abduction. 5/5 elbow flex/ext. 5/5 wrist flex/ext. 5/5 hand poultry debeaker. Lower Extremities: RLE: 5/5 hip flexion. 5/5 knee flex/ext. 5/5 ankle plantar-/dorsiflexion. 5/5 EHL. LLE: 5/5 hip flexion. 5/5 knee flex/ext. 5/5 ankle plantar-/dorsiflexion. 5/5 EHL Sensory: Sensation intact in all four extremities Coordination: Finger-nose and heel-camacho intact intact bilaterally. Labs/Imaging: Labs: Na Lab Results Component Value Date/Time NA 144 02/10/20242114 , Cr Lab Results Component Value Date/Time CR 0.59 02/10/20242114 , Hgb Lab Results Component Value Date/Time HGB 7.5 (L) 02/10/20242114 , WBC Lab Results Component Value Date/Time WBC 7.38 02/10/20242114 , Plt No components found for: PLATELETS, INR Lab Results Component Value Date/Time INR 1.5 (H) 02/10/20240 All imaging reviewed with the Neurosurgery chief resident. Surgery Discharge Milestones (Inpatient Primary Team only): * Valarie Kaba RN - 02/11/2024 1:00 AM CDT Upon admission, a Four Eyes Skin Inspection was completed with Yoni Rangel RN. Skin injuries were present, and skin breakdown needing further assessment will be added to [facility]atar. Will implement interventions from Skin INJURY Bundle as appropriate. Valarie Kaba RN * Justus Henderson MD - 02/11/2024 12:00 [place] [address] [facility]#: [id number] PATIENT: NURIA FOX : 1950 DATE DICTATED: 02/11/2024 SURGERY STAFF DAILY PROGRESS NOTE DATE OF SERVICE: 02/11/2024 I saw and evaluated the patient. I discussed management with residents, MATCHER OFFBEARER, and PAs on the Neurosurgery team and agree with documented findings and plan. Ms. Nuria Aguilar continues to have a fair amount of incisional pain, though overall is doing well and appears to have full strength in her lower extremities. Her hemoglobin was low this morning, and we have transfused her with 2 units of packed red blood cells. Recheck is pending. She continues to have [address] with high output. We are waiting on a TLSO brace and then once this is acquired, we will plan on getting upright x-rays. Justus Henderson MD, PhD Staff Physician Neurosurgery Service Received in [place] Supervisor: 02/11/2024 19:49:06 M: /[id number] SC/MODL * Valarie Kaba RN - 02/10/2024 8:34 PM CDT Images from the original note were not included. TRANSFER IN NOTE D: Patient transferred in to [facility] from PACU at 2033. Patient condition on arrival: alert and orient x4. Pt sleepy, easily aroused. BP86/54, P85, RR18, T93.8 (axillary), O2 91%. Unable to maintain O2 above 95%. O2 85-95%, 2L NC cannula applied. C/o of pain. Daughters accompanied and at bedside. Patient Belonging 02/10/20242052 Patient or family informed of Patient Valuables and Belongings Policy (#[id number]): Policy reviewed - patient/family/designee has indicated that he/she will assume responsibility of patient valuables Medications brought in by patient?: Given to family to take home Amlopdipine 5 mg Patient Belongings: Electronics;Clothing Electronics Comment: Cell Phone Clothing Comments: Backpack, clothes - pj, underwear, shirts, and pants A: Settled patient in to new room: oriented to room, VS done, assessment done, and team notified of arrive in STNU1. Property sheet checked in by: RN. Transfer orders released.. R: 2L NC applied due to O2 not maintaining above 95%. MD Notified. Pt resting comfortably at this time. P: Commence with cares per Care Plan and orders. Valarie Kaba RN * Lalit Ron MD - 02/10/2024 12:00 [place] [address] [facility]#: [id number] PATIENT: NURIA FOX : 1950 DATE DICTATED: 02/10/2024 SURGERY STAFF DAILY PROGRESS NOTE DATE OF SERVICE: 02/10/2024 I saw and evaluated the patient. I discussed management with residents, MATCHER OFFBEARER, and PAs on the Neurosurgery team and agree with documented findings and plan. Nuria is a 73-year-old, who Dr. Antoine took to surgery today for a T11 to S2 decompression and fusion. Hopefully, everything went well. Lalit Ron MD Staff Physician Neurosurgery Service Received in [place] Supervisor: 02/10/2024 20:23:47 M: /[id number] TB/MODL documented in this encounter Consult Notes * Joya Montgomery PharmD - 02/17/2024 10:28 AM CDTAssociated Order(s): DISCHARGE MED REC FINAL REVIEW BY PHARMACY PHARMACY DISCHARGE NOTE Nuria Aguilar : 1950 Sex: female Pharmacy service was consulted for review of patient's discharge medications. I have reviewed the patient's medications for discharge and have discussed the necessary changes with the provider. Changes have been made and medication list updated and complete. Please page with any questions. Joya Montgomery PharmD 02/17/2024 10:28 For questions regarding this note, please contact pharmacist on service at [facility] [employer] [phone]. If no response within needed timeframe, please contact central pharmacy via phone at [phone]. Planned discharge medications are: Medication List Medications Indications acetaminophen 325 mg tablet Commonly known as: TYLENOL Take 2 tablets (650 mg) by mouth every 4 hours as needed for Moderate Pain. amLODIPine 5 mg Tabs Commonly known as: NORVASC Take 1 tablet (5 mg) by mouth daily. BP's were softer during admission and this was held; OK to resume upon admission to [place] cyclobenzaprine 10 mg Commonly known as: FLEXERIL Take 1 tablet (10 mg) by mouth 3 times daily as needed for Muscle Spasm(s). oxyCODONE 5 mg tablet Commonly known as: ROXICODONE Take 1-2 tablets (5-10 mg) by mouth every 4 hours as needed for Pain. polyethylene glycol 3350 17 g Packet Commonly known as: MIRALAX;GLYCOLAX Take 17 g by mouth daily.Take 1 capful to 17 gm navi mixed with full glass of water every day as directed. senna 8.6 mg tablet Commonly known as: SENOKOT Take 1 tablet (8.6 mg) by mouth twice daily. * Alonso Blackman CWON - 02/16/2024 3:19 PM CDTAssociated Order(s): CONSULT TO WOUND NURSE Images from the original note were not included. Wound Ostomy Continence Nurse Consult Nuria Aguilar - : 1950 - MR# [id number] - Date: 02/16/2024 Reason For Consultation: The patient is being seen in consultation at the request of special education coordinator for evaluation of skin breakdown to right gluteal area. Incontinence issues: Bladder Incontinence Management: Primafit Moisture Associate Skin Damage: none Mattress: Isotour (MedSurg Standard surface) Wound Description: Pt present with serous filled blister to right gluteal area, possibly related tofriction or pressure from ill fitting TLSO. [facility] came to adjust today and per RN is fitting better. RN to apply bordered foam dressings PRN under brace. Consult Recommendations: Not applicable [facility] Nursing follow up: Appreciate the opportunity to consult on this patient, Wound Ostomy Continence Services will sign off at this time. Please place additional 'Wound Consult' if wanting further assessment for this patient. Staff to continue to follow skin injury bundle. Escalate concerns to WOCN through additional consult or to the provider when barriers are identified. WOCN available Thursday through Thursday on [employer] or [phone] Alonso Blackman CWON, 02/16/2024 3:22 PM * Juanita Sarabia MD - 02/15/2024 10:25 AM CDT Images from the original note were not included. Physical Medicine & Rehabilitation Consultation Patient Name: Nuria Aguilar : 1950 Medical Record: [id number] PRIMARY CARE PHYSICIAN: Marcela Vera MD REQUESTING PHYSICIAN: Tushar Antoine, * REASON FOR CONSULT: I was asked to evaluate this patient regarding their rehabilitation needs and appropriateness for acute rehabilitation. HISTORY OF PRESENT PROBLEM I personally reviewed the patient's medical record from [facility] admission and, and summarized it belowin conjunction with the patient interview. Nuria Aguilar is a 73 y.o. female with HTN, chronic low back pain, degenerative scoliosis admitted to [facility] 02/10/24 for elective spinal fusion T11-S2, and left L5-S1 PLIF. Post-op coursehas been unremarkable, TLSO brace obtained. Plan for possible removal of L hemovac drain today. Current function with therapies: PT 02/14 Bed mobility min assist, gait 8 m with FWW and min assist OT 02/12 Eating SBA, grooming min A, toileting dependent, LBD dependent, supine to sit dependent Upon visiting the patient, she is resting in bed, no family at bedside. A video qatari interpreterwas used throughout the visit. She reports feeling well today. We discussed rehabilitation options,she is interested in [facility] if she qualifies. All questions addressed. SOCIAL/PRIOR FUNCTIONAL HISTORY Living situation/support: Lives in a house with 3 steps to enter and 6 steps inside, has intermittent support available (daughter lives with her but works during the day) Vocational History: Currently not working Driving: no Activities of daily living: independent Cognition: independent Mobility: independent Assistive devices: No assistive devices MEDICAL/SURGICAL HISTORY No past medical history on file. Past Surgical History: Procedure Laterality Date REPRODUCTIVE SURGERY HISTORY Bilateral 1984 tubal FAMILY HISTORY No family history on file. MEDICATIONS Current Facility-Administered Medications Medication Route Frequency enoxaparin (LOVENOX) 30 mg/0.3 mL injection 30 mg Subcutaneous daily sennosides (SENOKOT) tablet 8.6 mg Oral bid prn VTE prophylaxis contraindicated Does not apply protocol ceFAZolin (ANCEF) IVPB 2 g Intravenous q 8h diazePAM (VALIUM) tablet 2 mg Oral q4h prn acetaminophen (TYLENOL) tablet 650 mg Oral q4h prn oxyCODONE (ROXICODONE) tablet 5-10 mg Oral q4h prn cepacol 1 lozenge mouth/throat Oral q2h prn melatonin tablet 1 mg Oral hs prn polyethylene glycol 3350 (MIRALAX;GLYCOLAX) packet 17 g Oral daily bisacodyl (DULCOLAX) suppository 10 mg Rectal daily prn ondansetron (ZOFRAN) tablet 4 mg Oral q6h prn ondansetron (ZOFRAN) 4 mg/2 mL injection 4 mg IV Push q6h prn naloxone (NARCAN) 0.4 mg/mL injection 0.4 mg IV Push once prn ALLERGIES No Known Drug Allergies PHYSICAL EXAM BP 115/56 (Cuff Location: Left Arm) Pulse 83 Temp 36.6 ??C (97.8 ??F) (Tympanic) Resp 16 Ht1.289 m (4' 2.75) Wt 48.8 kg (107 lb 9.6 oz) SpO2 98% BMI 29.37 kg/m?? General: Alert and cooperative, NAD. Eyes: Sclera non-icteric, EOMI, HENT: Normocephalic, no rhinorrhea, MMM. Cardiac: Appears well perfused, no cyanosis Respiratory: Breathing comfortably on room air. Gastrointestinal: Appears non distended Skin: Exposed skin warm, dry. Psych: affect pleasant, goal oriented speech. Neurological: Alert and conversant, following commands and answering questions appropriately. Speech fluent/comprehensible. CN II-XII grossly intact. Further exam deferred due to OT arriving for therapies LABS Lab Results Component Value Date WBC 7.81 02/15/2024 RBC 2.80 (L) 02/15/2024 HGB 8.3 (L) 02/15/2024 HCT 25.7 (L) 02/15/2024 PLT 162 02/15/2024 Lab Results Component Value Date NA 140 02/12/2024 K 3.7 02/12/2024 CHLORIDE 107 02/12/2024 CO2 28 02/12/2024 GLU 108 (H) 02/12/2024 UN 12 02/12/2024 CR 0.43 (L) 02/12/2024 CA 7.6 (L) 02/12/2024 Lab Results Component Value Date/Time PT 16.9 (H) 02/10/2024 1820 APTT 44.5 (H) 02/10/2024 1613 INR 1.5 (H) 02/10/2024 1820 OTHER DIAGNOSTIC STUDIES XR T spine 02/13 Impression: Stable thoracic mild dextro scoliosis. Extensive postsurgical changes of spinal fusion in the lumbar spine with improved scoliosis. XR L spine 02/14 Impression: Stable extensive postsurgical changes as described above. Hardware appears intact. Alignment is stable. Impression: Nuria Aguilar is a 73 y.o. female with HTN, chronic low back pain, degenerative scoliosis admitted to [facility] 02/10/24 for elective spinal fusion T11-S2, and left L5-S1 PLIF. Post-op coursehas been unremarkable, TLSO brace obtained. Weight bearing restrictions/bracing: Fall precautions, TLSO when out of bed and working with therapies (?) Recommendations: Continue PT to address balance, mobility, gait, transfers, safety Continue OT to address self care, ADL's, adaptive equipment Regarding disposition: She will likely make an excellent candidate for [facility] rehabilitation pendingremoval of drains x2, ongoing therapy needs, medical stability, and confirmation of payor source (uncompensated care?). Our team will continue to follow and update recommendations appropriately. Criteria for inpatient rehabilitation includes need for multiple therapy disciplines, rehabilitation physician supervision, functional goals based on patient's prior and current functional status, ability to tolerate 3 hours of therapy a day for least 5 days a week, and requirement of an intensive and coordinated interdisciplinary team approach. Thank you for this consultation and allowing us to participate in the care of this patient. We willcontinue to follow and update recommendations as appropriate. Please feel free to page me with questions/concerns. Juanita Sarabia MD Staff Still Worker Helper Available on [employer] Total time spent on this encounter, on the date of service including pre-visit review of separatelyobtained history, [id number]-sy-owrz interaction performing medically appropriate physical exam, patient counseling/education, interpretation of diagnostic results, care coordination and documentation was 45 minutes. * Jesus, January, PT - 02/14/2024 11:31 AM CDT PHYSICAL THERAPY INPATIENT ACUTE EVALUATION Nuria Aguilar was seen 02/14/2024 for a Physical Therapy Evaluation. PT Discharge Recommendations Discharge Recommendations: Safety risk for discharge home today. (per chart, pt has TIFFANY, no coverage for INDIRA) Barriers to discharge to home/community: Insufficient activity tolerance;Caregiver support/supervision insufficient;High falls risk;Adaptive equipment needed for safe DC;Home setting not accessible (stairs/architectural barriers) If discharging to home, would need: Physical assistance when mobilizing (needs assist to don brace) Post discharge follow-up: Equipment Status: Equipment needs being determined PT Equipment Recommended: Front wheeled walker PM&R Recommended: DIAGNOSIS Patient Active Problem List Diagnosis Cancer screening Scoliosis of lumbar spine Arthralgia of both hands Lumbar radiculopathy Cervical radiculopathy Essential hypertension Scoliosis of lumbar spine, unspecified scoliosis type PT Treatment Diagnosis: Difficulty in Walking R 26.2 Impaired Mobility Z 74.09 Activity Intolerance Z 73.89 Muscle Weakness M 62.81 Unsteadiness on Feet R 26.81 Low Back Pain M 54.5 PRECAUTIONS Thoracic/Lumbar Precautions Falls Full Code ACTIVITY Up with Assist Physical Therapy Orders: Orders Placed This Encounter Procedures PT EVALUATION AND TREATMENT Standing Status: Standing Number of Occurrences: 1 Order Specific Question: Reasons for eval? Answer: As Per Dx Order Specific Question: OK for out of bed activity? (Update Activity Order) Answer: Yes PT EVALUATION AND TREATMENT Obtaining brace today Standing Status: Standing Number of Occurrences: 1 Order Specific Question: Reasons for eval? Answer: As Per Dx Order Specific Question: OK for out of bed activity? (Update Activity Order) Answer: Yes HISTORY Pertinent History: Dr. Alexander on 02/13/24 Nuria Aguilar is a 73 y.o. female admitted on 02/10/2024 after T11- S2AI posterior segmental fusion with deformity correction and left insertion L5- S1 PLIF. Plan: Today, we are planning on getting TLSO placed and encouraging pt to work w/PT/OT. Plan: - HV x 2 - Ancef while the drain is in - PT/OT - TLSO Brace - UXR T and L spine with TLSO brace donned - Electrolytes - Sodium goal = Normonatremia - Monitor and replete electrolytes - Diet: Regular diet as able - Therapies: PT/OT - DVT prophylaxis: SCDs, okay to hold chemoprophylaxis - Disposition: Floor Medical History No past medical history on file. SOCIAL HISTORY nformation obtained From: patient;chart Help Available at home: yes, but not 24 hour, family with her today did not indicate what level of support they could provide, when telling pt that Patient is living in a/an : house Stairs Required to enter the home: yes, 3 with one rail, 6 with one rail inside Mobility equipment currently available/used: none ADL Equipment currently available/used: none SUBJECTIVE Patient's Stated Goals: to get moving Pain: 5/10 resting located in low back 5/10 with activity located in low back Mental Status: Oriented X 3, Alert, and Cooperative Follows Direction: Yes, 2 step OBJECTIVE Initial patient presentation upon PT arrival: in bed Skin: Intact Braces/Splints: TLSO Lines: Peripheral IV Oxygen: Nasal Cannula 1 L/min but 93% Restraints/Fall Management: None Vital Signs: Vital Signs 02/14/2024 0329 02/14/2024 0700 02/14/2024 1100 BP: 133/73 135/65 107/59 Patient Position for BP: Lying Down Lying Down Lying Down Pulse: 82 -- -- SpO2: 95 % -- -- Oxygen Delivery: Pt is on room air during session, saturating >90% Sensation: UE: Light touch: Within Normal Limits: Yes LE: Light touch: Within Normal Limits: Yes Motor: ROM/Strength: Right Left Upper Extremity: Range of Motion Grossly WNL Strength Grossly WNL Upper Extremity: Range of Motion Grossly WNL Strength Grossly WNL Lower Extremity: Range of Motion Grossly WNL Strength Grossly WNL Lower Extremity: Range of Motion Grossly WNL Strength Grossly WNL Comment: Transfers & Bed Mobility: Supine to Sit: Minimal Assistance Sit to Supine: Minimal Assistance Sit to Stand: Minimal Assistance Stand to Sit: Minimal Assistance Gait Evaluation: Distance: 8 meters Assistive Device: Front - wheeled walker Assistance (Level): Minimal assistance- Patient performs 75% or more of walking effort. Gait Deviations: Unsteady and Shuffling Balance: Sitting: Unsupported: WNL Standing: Relies on assistive device for stability in standing Education/Other: role of PT, care plan Positioning: In chair with lunch in front, family at side Interdisciplinary Communication: RN: Pt on bench, will need assist to walk back Treatment rendered: Strengthening;Bed mobility training;Transfer training;Gait training (eval) Total treatment time: 40 minutes ASSESSMENT Nuria Aguilar is a 73 y.o. female presents to T11-S1 fusion, TLSO donned at EOB. Pt lives in house and has assist but not 27/04. Family present did not offer that they could be there daily to assist with donning brace. Pt is notable to don alone as strap crossed behind her. She needs assist to stand and walk with walker this date. Her baseline was walking fairly short distances but without AD. Pt indicates the back pain was part of the reason for low abilities. She has no numbness/tingling or any pain in her legs this date. Very shuffled, mildly unsteady to start. She will require a vinay walker. Pt is not able to dc home alone at this time, likely no coverage unless pt has other insurance besides [facility]. Patient presents with Pain, Impaired gait, Decreased Strength, Impaired Balance, and Decreased Activity Tolerance. These impairments affect the patient's ability to safely and independently perform Bed Mobility, Transfers, Ambulation, Stairs, and Community Integration. Patient will benefit from continued skilled PT services to progress towards goals. See Care Plan for goals. PLAN Patient will be seen 2-4x/week until goals are met or patient is discharged. Next visit the plan isto work on supine to sit, bed to chair with brace, sit to stand reps, gait with walker, review brace management ongoing. DENTAL TECHNOLOGIST Appropriate: Yes Participated in goal setting and treatment planning: Patient Agrees with goals and treatment plan: Patient - Yes. Jennifer Lee PT 02/14/2024 Pager: T[facility] PT Department * Destiny Bojorquez OTR/L - 02/13/2024 11:12 AM CDT OCCUPATIONAL THERAPY ACUTE INITIAL EVALUATION Nuria Aguilar 02/13/2024 OT Discharge Recommendations Discharge Recommendations: Post-acute placement recommended Level/type of placement (OT): Acute Rehab if meets admission criteria Post Discharge Follow-up: OT at post-acute placement Equipment Recommended: Equipment needs to be determined at next level of care OT In-patient follow-up / recommended referrals: Continue skilled OT services to achieve the goals on the plan of care / maximize safety and independence with ADL's / IADL's: - Recommended Frequency: 3-5x per week - Anticipated Duration of OT services: throughout hospital stay - Interventions: ADL retraining, activity tolerance, functional mobility, strengthening, and DME / Adaptive Equipment needs assessment PM&R Consult Recommended: Yes, for assessment of post-acute placement needs. Pt appears to be acandidate for higher intensity rehab services Patient Name: Nuria Aguilar : 1950 Age: 73 y.o. Hospital Admit date: 02/10/2024 Today's Date: 02/13/2024 Occupational Profile Medical History relevant to OT referral: Primary Diagnosis: Active Problems: Scoliosis of lumbar spine, unspecified scoliosis type Resolved Problems: * No resolved hospital problems. * Treatment Diagnosis: Impairments in motor function that limit safety and or independence with ADL's/ IADL's Restrictions/Precautions: Activity Level: Up Ad [place] Spinal Precautions: TLSO - OK to don in sitting (needs to stand to be fit for brace) Hospital Course: See MD Notes Past Medical History No past medical history on file. Living Situation/Social History: Information obtained From: patient;chart Help Available at home: yes, but not 24 hour Patient is living in a/an : house Stairs Required to enter the home: yes Stairs required once inside the home: yes Mobility equipment currently available/used: none ADL Equipment currently available/used: none Prior Level of Function: ADLs/IADLs: No assistance required (Independent or modified independent) Functional Mobility: Independent in the home without assistive device Evaluation Subjective: It is better today. Pain: Pain Rating With Activity (Numeric): 5/10 Location: back; BLE Participation Significantly Limited?: No Action Taken: Repositioned patient with reported relief;Nursing aware and addressing Patient Appearance: Lines: - Peripheral IV(s) I&O/Drains: - Hemovac - external catheter Monitoring/Devices: - Telemetry Oxygen Delivery: - Nasal cannula 2 L Vitals: Desat to 85% when on RA during stand for scanning to fit TLSO; recovered quickly when placed back on 2L via NC Upper Extremity Function: Bilateral UE ROM, strength, coordination, and sensation are WFL for basic self-cares. Activities of Daily Living: Eating: Supervision/Stand by assist Grooming: Minimal assist (75% patient effort) Grooming Comments: seated Toileting: Dependent (less than 25% patient effort) Toileting Comments: external catheter Lower Body Dressing: Dependent (less than 25% patient effort) Lower Body Dressing Comments: socks Functional Mobility: Supine to/from Sit: Dependent (less than 25% patient effort) Sit to/from Stand : Moderate assist (50% patient effort) Sit to/from Stand - Method: w/ Assistive device Activity Tolerance/Endurance: Patient tolerates sitting at edge of bed standing at bedside. Cognition: Mental Status: Oriented x 3;Alert;Cooperative;Follows 1 step direction;Follows 2 step directions Delirium assessment: Confusion Assessment Method (CAM) Acute onset OR fluctuating course: No CAM result: Negative Delirium prevention / intervention appears indicated? Interventions provided: - engaged pt in functional tasks - promoted mobility - promoted day / night sleep schedule (keeping pt awake during the day) Visual Perception: Pt reports visual changes - No Additional Treatment / Education Provided: Education / training was provided to patient and family regarding : - Activities of daily living (ADL's): UB dressing compensatory strategies - Functional mobility / transfer training: Walker safety, Bed mobility, and sit<->stand - Brace (TLSO): purpose, donning, doffing, wear schedule, skin integrity education Caregiver Training Status (OT): In progress Caregiver Training Comments (OT): daughter present Interdisciplinary Communication: RN: ok to see pt to assist with TLSO scanning Other: assisting winkley to stand pt for TLSO scan Barriers to Learning: language barrier (non-[employer] speaker) Rehab Potential: good ASSESSMENT: Pt s/p [id number] posterior segmental fusion with deformity correction and left insertion L5-S1 PLIF.At time of eval pt did not yet have TLSO placed. Activity orders stating that pt is ok to get up before brace, however to wait to participate in therapies until braced. Brace vendor present and needing to stand pt to scan for fitting brace where pt must stand unassisted, away from EOB and with use of FWW to allow scan to go around pt 360*. [employer] proceeded with eval in order to assist with movingpt to this position as well as assess safety of pt in maintaining this stand without assist. Pt with intermittently buckling with initial stepping to move away from EOB to allow for space between pt and bed to allow for scanning behind pt, however able to demonstrate stable stand when standing stationary and support of FWW. BLE weakness and pain limiting functional independence this date. Pt lives with family and has some assist available, however is alone during the day when family is at work and would need to navigate home and adls at mod I level during these times. Will defer subsequent OTsession until pt fitted with brace for additional OOB activity assessment. (See box at the top of note for additional information) Impairments: This patient demonstrates impairments in the following: Sensory functions: Pain / pain control Motor function: Strength / Muscle power Functional mobility Balance Endurance / activity intolerance Performance Deficits / Activity Limitations: The impairments listed above affect the patient's ability to safely and independently engage in the following occupations All Activities of Daily Living (ADL's) (i.e. grooming, dressing, toileting, bathing, etc.) All Instrumental Activities of Daily Living (IADLS's) (i.e. meal prep, money management, community mobility, shopping, etc.) Patient's Stated Goals: less pain and go home PLAN: See box at top of note for additional information. See care plan for OT goals (if indicated). Participated in goal setting and treatment planning: Patient, Family Agrees with goals and treatment plan: Patient - Yes, Family - Yes Plan For Next OT Session: --ADLs: LB dressing compensatory strategies, Toileting strategies, and Progress from seated to standing level ADLs as able --Functional Mobility/Transfers: Walker safety --DME/AE recommendations: Toileting equipment --Brace Training/Management Total treatment time: 50 minutes OT interventions and time spent on each: Eval: 25 minutes Self care/Home mgmt/ADL: 25 minutes Therapist: JESSICA Scanlon/Jordon Pager: [employer] Occupational Therapy Department documented in this encounter Nursing Notes * Lani Madrid RN - 02/10/2024 9:49 AM CDT During mendieta insertion, slight skin tear directly under the vagina from opening up labia, wiping with PreClean wipes. Cleaned with betadine and relaxed tissue documented in this encounter OR Notes * OR Surgeon - Tushar Antoine MD - 02/10/2024 5:27 PM CDT OPERATION REPORT My signature attests that I was present and assisted with/performed the banks or critical portion of this procedure. I was immediately available or had arranged immediate staff availability for all thenon-critical or non-banks portions of the entire procedure. Upon completion, all neural structures appeared well decompressed without evidence of csf leak or neural injury. This entire operation was performed under loupe magnification in a dry field. Bone was osteoporotic. Tushar Antoine MD, 02/17/2024 12:59 PM STAFF SURGEON: Tushar Antoine MD RESIDENT SURGEON: Justus Fisher MD PREOPERATIVE DIAGNOSIS: Scoliosis of lumbar region due to degenerative disease of spine in adult POSTOPERATIVE DIAGNOSIS: same PROCEDURES PERFORMED: Utilization of the frameless FightMe navigational system for preoperative planning and intraoperative guidance for insertion of Solera KERNS coated pedicle screws at T11, T12, L1, L2, L3, L4, and L5. Ballast screws placed at S2AI bilaterally. Preparation disc space at L5-S1 for posterior lumbar interbody fusion. Insertion of Capstone spacer L5-S1. Posterior lateral arthrodesis at all levels including T11-L4 where there was no PLIF. L3/4 and L4/5 decompressive laminectomy and partial facetectomies with extensive bilateral L4 and L5 foraminotomies Pratt of local bone. Utilization of bone morphogenic protein. Extensive left L5 foraminotomy and JOSEPH type decompression. Complex procedure due to extremely small anatomy and very osteoporotic bone making this procedure take longer than usual. FINDINGS: [id number] posterior segmental fusion with deformity correction and left insertion L5-S1 PLIF. IMPLANTS: Medtronic Solera 5.5/6.0 KERNS pedicle screws T11: Left 5.5 x 35 mm, Right 5.5 x 40 mm T12: Left 5.5 x 40 mm, Right 5.5 x 35 mm L1: Left 5.5 x 40 mm, Right 6.5 x 35 mm L2: Left 5.5 x 35 mm, Right 6.5 x 40 mm L3: Left 6.5 x 35 mm, Right N/A L4: Left 6.5 x 45 mm, Right 6.5 x 40 mm L5: Left N/A, Right 6.5 x 35 mm S1: N/A S2AI (Ballast screws): Left 8.5 x 80 mm, Right 8.5 x 80 mm Medtronic Pass LP crosslinks x2 Medtronic PLIF implant: L5-S1: 6 x 22 mm, left side Medtronic Ti rods, custom length Biologic allograft: BMP: large DBF: 6 cc Mastergraft strip: 36 cm ESTIMATED BLOOD LOSS: 2778 mL per Cell[employer] INDICATIONS FOR OPERATION: Nuria Aguilar is a 73 y.o. female with minimal past medical history who presented to[facility]. [facility] Neurosurgery clinic with complaints reflecting low back pain and left L5 radiculopathy. Imaging demonstrated levoscoliosis with extensive spondylosis, facet arthrosis, and spinal canaland neural foraminal stenosis. Dr. Antoine discussed the possibilities of multiple surgeries with the patient, including less extensive surgery to address only nerve root compression, up to fusion for deformity correction with thecal sac and nerve root compression. The patient elected to proceed with the above surgery. The risks, benefits and alternatives were discussed with the patient and written consent was obtained for the above operation. DESCRIPTION OF PROCEDURE: The patient brought to the operating room where general endotracheal anesthesia was induced. IV access obtained. The patient was positioned prone on gel rolls with face in ProneView and arms above head. All pressure points were padded. A vertical midline incision was planned and prepped and draped in a standard fashion. Perioperative antibiotics were administered. After conducting appropriate time-out, 20 mL of 1% lidocaine with 1:100,000 epinephrine was infiltrated in the planned incision. The incision was opened sharply through epidermis and dermis with #10 blade. Monopolar cautery was used to dissect along the midline avascular plane to the depth of the spinous processes and then bilaterally along the subperiosteal plane to the width of the transverse processes. O-arm CT was performed for stereotactic localization. Pedicle screws were placed at T11 through L5 and pelvic screws at S2 bilaterally, in the following manner. S2AI trajectory was identified just superior and lateral to the S2 neural foramen, and a [id number] trajectory was drilled with an orthopedic drill. This pilot control operator hole was tapped, and pedicle sounding probe was used to ensure no cortical bony violation. Ballast pelvic screw was then placed along the planned trajectory. Pedicle screws were also placed, at the above levels. First, a transpedicular approach was identified, and a small platform was drilled at the planned pedicle screw entry site near the mamillary process at the junction of the transverse process and pars. A 35 mm transpedicular pilot control operator hole was drilled using stereotactic navigation, and pedicle sounding probe was used to ensure no cortical bony violation. The pilot control operator hole was tapped, and pedicle sounding probe was usedagain. Pedicle screw was selected and placed along the planned trajectory. O-arm CT was then used to confirm placement of pedicle and pelvic screws. The right L3 pedicle screw was found to have lateral placement, due to the extreme rotatory scoliosis of this level. This screw was removed and left out for patient safety, and no bleeding was encountered. The patient's anatomy (scoliosis, small pedicles), petit physical size and significantly osteoporotic bone made this patient take longer than usual and made it more difficult. A decompressive laminectomy of L3/4 and L4/5 level was then performed with the Midas drill and Kerrison punches with extensive facetectomies to achieve lateral recess decompression and bilateral L4 and L5 foraminotomies. We then turned our attention to the left L5-S1 facetectomy and foraminotomy for disc preparation and posterior lumbar interbody fusion device placement. Left inferior L5 facetectomy was performed with Midas drill with AM-8 bit, and this bone was saved for later use as autograft. We drilled to the disc space, and the disc annulus was incised with #15 blade. Pituitary rongeur was used to remove disc pulposus, with assist from multiple curettes to debride the associated endplates. The prepared disc space was then filled with DBF putty, and interbody trials were utilized. A 6 mm height interbody was selected and tamped into place with the use of flat plate X-ray to confirm satisfactory placement. In the setting of the patient's levoscoliosis and associated spondylosis causing left L5 nerve root compression, the left L5 pedicle screw was removed, and the medial portion of the left L5 pediclewas thinned to allow full nerve root decompression. Rods were then cut and bent to shape, then placed across the pedicle screw heads. Rods were securedinto place with reduction of the patient's levoscoliosis, with assistance of almas reducing towers. Pedicle screws were placed and final tightening applied. The transverse processes were decorticated, and a combination of BMP, autograft, and allograft was packed across the decorticated areas. The cavity was irrigated and hemostasis was achieved. Two medium Hemovacs were obtained and placed in the subfascial space, cut to size, and tunneled out superiorly through the skin. The drains were secured at their exit points from the skin with purse string 2-0 silk stitches with Jasiel sandal tie. Closure was performed with interrupted 0-0 vicryl for muscle, fascial, and fat layers. A dermal layer was closed with inverted interrupted 2-0 vicryl, and skin was closed with running 3-0 nylon. The wound was cleaned and a sterile dressing was applied. The patient was extubated by Anesthesia and transferred to the postanesthesia care unit without incident Counts were correct and there were no complications during the procedure. Dr. Antoine was present during the operation Justus Fisher MD Resident Physician, PGY-5 Neurosurgery Service documented in this encounter Miscellaneous Notes * Discharge non-MD/non-NANCY Summaries - Kyra Jackson RN - 02/17/2024 1:08 PM CDT DISCHARGE NOTE D: Patient has been discharged to [facility]. A: (As documented in the Discharge Planning Flowsheet) Discharge Instructions (AVS): AVS given Discharge clothing/valuables: has adequate clothing Discharge medications: medications on unit Home equipment status: no equipment needed Home equipment/supplies recommended: None Final discharge destination: R: The patient understood the AVS. P: Support patient if they call back with questions. * Nursing Assessment - Kyra Jackson RN - 02/17/2024 10:27 AM CDT Nursing Assessment Head to Toe Head to Toe Assessment Shift Summary Cymraes Speaking. Alert & oriented x 4, call light within reach, and can make needs known. Stand-by assist with a walker. Purewick used overnight. Midline back incision w/ sutures, open to air. TLSO required when HOB >30. Expected discharge to [place] today, 02/16. Kyra Jackson RN, 02/17/2024 10:38 AM Neurologic/Cognitive Within Defined Limits HEENT Within Defined Limits Cardiac Within Defined Limits Respiratory Within defined limits Neurovascular Within Defined Limits Gastrointestinal Within Defined Limits Emesis: 0 mL (02/16/2024 8:00 PM) Stool/Urine (mL): 0 mL (02/16/241999) Stool (unmeasured): 1 (02/17/24929) Stool Amount: large (02/17/24929) Stool Color: dark brown (02/17/24929) Stool Consistency: formed (02/17/24929) Liquid Stool (mL): 0 mL (02/16/241999) Genitourinary Within Defined Limits Musculoskeletal Assessment Within Defined Limits except for: Musculoskeletal Assessment: General Mobility: Generalized weakness Integumentary Assessment Within Defined Limits except for: Comments: Pressure sore Patient Lines/Drains/Airways Status Active LDAs Name Placement date Placement time Site Days Peripheral IV 02/10/24 20 gauge Left Forearm 02/10/24 0653 -- 7 Peripheral IV 02/11/24 20 gauge;1 3/4 in length Anterior;Right Forearm 02/11/24 1228 -- 5 Female External Urinary Catheter 02/12/24 1830 -- 4 Wound 02/10/24 Incision Back 02/10/24 0803 Back 7 Wound 02/11/24 Other (comment) Arm Anterior;Proximal;Right;Upper 02/11/24 0100 Arm 6 Wound 02/11/24 Skin Tear Elbow Anterior;Right 02/11/24 0630 Elbow 6 Wound 02/16/24 Blister Buttock Right;Posterior 02/16/24 1300 Buttock less than 1 Wound 02/16/24 Skin Tear Buttock Left 02/16/24 1400 Buttock less than 1 Psychosocial Within Defined Limits * Discharge non-MD/non-NANCY Summaries - Yoandy Magaña - 02/17/2024 7:18 AM CDT Summary: DC to [facility] Coordination Discharge Note Expected DC Date: 02/17/2024 Expected DC Time: prior to 2:00 PM Final Discharge Destination: Destination Coordination complete. Service Provider Selected Services Address Phone [facility] [address] [place] [id number] Summary: Patient has been accepted to continue rehabing at the aforementioned post acute facility. Patient is on board with plan. Medical team is aware. They will work writing DC orders. A [employer] thread has been started. CC will continue to follow until DC. Please use [employer] for any further questions. * Interdisciplinary Note - Jake Pena MD - 02/17/2024 6:30 AM CDT Addendum to progress note dated 02/11/2024: For coding purposes Patient's hemoglobin was low and she received 2 units of blood transfusion. Diagnosis: Acute blood loss anemia from surgery Treatment: Blood transfusion Jake Pena Neurosurgery Resident PGY3 * Nursing Assessment - Chau Leiva RN - 02/16/2024 6:45 PM CDT Nursing Assessment Head to Toe Head to Toe Assessment Shift Summary Shift Summary Pt stated having pain at 6/10. Stated pain is relieved after receiving prn pain meds. Pt only speaks Cymraes. Pt is on purewick overnight. Up to bathroom with assist x 1 during the day. Motivated pt to ambulate. Pt's RLE and LLE are bilaterally weak. Pt has new blisters on right buttocks and a skintear on the left buttocks. Applied foam for pt. Continue to monitor and manage pt's conditions. Chau Leiva RN, 02/16/2024 6:45 PM Vitals: 02/16/24 1800 BP: 109/54 Pulse: 70 Resp: 12 Temp: 36.6 ??C (97.8 ??F) SpO2: 94% Neurologic/Cognitive Within Defined Limits HEENT Within Defined Limits Cardiac Within Defined Limits Respiratory Within defined limits Neurovascular Within Defined Limits Gastrointestinal Assessment Within Defined Limits except for: Abdominal appearance: Contour irregular Emesis: 0 mL (02/15/2024 8:00 PM) Stool/Urine (mL): 0 mL (02/15/241999) Stool (unmeasured): 0 (02/15/241999) Stool Amount: large (02/15/24 1447) Stool Color: dark brown (02/13/24 0300) Liquid Stool (mL): 0 mL (02/15/241999) Genitourinary Assessment Within Defined Limits except for: [...] 20 gauge Left Forearm 02/10/24 0653 -- 6 Peripheral IV 02/11/24 20 gauge;1 3/4 in length Anterior;Right Forearm 02/11/24 1228 -- 5 Female External Urinary Catheter 02/12/24 1830 -- 4 Wound 02/10/24 Incision Back 02/10/24 0803 Back 6 Wound 02/11/24 Other (comment) Arm Anterior;Proximal;Right;Upper 02/11/24 0100 Arm 5 Wound 02/11/24 Skin Tear Elbow Anterior;Right 02/11/24 0630 Elbow 5 Wound 02/16/24 Blister Buttock Right;Posterior 02/16/24 1300 Buttock less than 1 Wound 02/16/24 Skin Tear Buttock Left 02/16/24 1400 Buttock less than 1 Psychosocial Within Defined Limits * Nursing Assessment - Chau Leiva RN - 02/16/2024 11:30 AM CDT Nursing Assessment Head to Toe Head to Toe Assessment Shift Summary Shift Summary Pt denies pain. Pt speaks Cymraes. Stated pain is relieved after receiving prn pain meds. Pt is on purewick overnight. Up to bathroom with assist x 1 during the day. Pt's RLE and LLE are bilaterally weak.Continue to monitor and manage pt's conditions. Chau Leiva RN, 02/16/2024 11:37 AM Vitals: 02/16/24 0748 BP: 117/51 Pulse: 75 Resp: 18 Temp: 35.3 ??C (95.5 ??F) SpO2: Neurologic/Cognitive Within Defined Limits HEENT Within Defined Limits Cardiac Within Defined Limits Respiratory Within defined limits Neurovascular Within Defined Limits Gastrointestinal Assessment Within Defined Limits except for: Abdominal appearance: Contour irregular Emesis: 0 mL (02/15/2024 8:00 PM) Stool/Urine (mL): 0 mL (02/15/241999) Stool (unmeasured): 0 (02/15/241999) Stool Amount: large (02/15/24 1447) Stool Color: dark brown (02/13/24 0300) Liquid Stool (mL): 0 mL (02/15/241999) Genitourinary Assessment Within Defined Limits except for: [...] 20 gauge Left Forearm 02/10/24 0653 -- 6 Peripheral IV 02/11/24 20 gauge;1 3/4 in length Anterior;Right Forearm 02/11/24 1228 -- 4 Drain Back Right 2 02/10/24 1804 -- 5 Female External Urinary Catheter 02/12/24 1830 -- 3 Wound 02/10/24 Incision Back 02/10/24 0803 Back 6 Wound 02/11/24 Other (comment) Arm Anterior;Proximal;Right;Upper 02/11/24 0100 Arm 5 Wound 02/11/24 Skin Tear Elbow Anterior;Right 02/11/24 0630 Elbow 5 Psychosocial Within Defined Limits * Interval Note Provider - Emma Wesley PA-C - 02/16/2024 10:23 AM CDT HV Drain Removal HV drain pulled given minimal drainage overnight. Surgical site C/D/I and without erythema or drainage, area cleaned with chlorhexidine. Suture cut and vacuum removed from drain, drain pulled, no CSFleak noted. Minimal serosang drainage and pressure was held. Steri strips placed, patient toleratedprocedure well. insurance office manager used. Emma Wesley PA-C, 02/16/2024 10:24 AM Neurosurgery Service ROSEANNE * Nursing Assessment - Lexi Luo RN - 02/16/2024 5:49 AM CDT Nursing Assessment Head to Toe Head to Toe Assessment Shift Summary Shift Summary Neurologic/Cognitive Within Defined Limits Frequent Neuro Assessments have been documented in the flowsheets HEENT Assessment Within Defined Limits except for: Comments: Wears glasses at baseline. Cardiac Within Defined Limits Respiratory Within defined limits Neurovascular Within Defined Limits Gastrointestinal Within Defined Limits Emesis: 0 mL (02/15/2024 8:00 PM) Stool/Urine (mL): 0 mL (02/15/241999) Stool (unmeasured): 0 (02/15/241999) Stool Amount: large (02/15/24 1447) Stool Color: dark brown (02/13/24 0300) Liquid Stool (mL): 0 mL (02/15/241999) Genitourinary Assessment Within Defined Limits except for: Comments: Voiding via female purewick overnight Musculoskeletal Assessment Within Defined Limits except for: Musculoskeletal Assessment: General Mobility: Generalized weakness and mildly impaired Range of Motion: General - mildly impaired Integumentary Assessment Within Defined Limits except for: Skin Assessment Integrity - see Avatar LDA documentation Integrity Location - Back, midline - see LDA. Comments: X1 hemovac to Rt. side of incision Patient Lines/Drains/Airways Status Active LDAs Name Placement date Placement time Site Days Peripheral IV 02/10/24 20 gauge Left Forearm 02/10/24 0653 -- 5 Peripheral IV 02/11/24 20 gauge;1 3/4 in length Anterior;Right Forearm 02/11/24 1228 -- 4 Drain Back Right 2 02/10/24 1804 -- 5 Female External Urinary Catheter 02/12/24 1830 -- 3 Wound 02/10/24 Incision Back 02/10/24 0803 Back 5 Wound 02/11/24 Other (comment) Arm Anterior;Proximal;Right;Upper 02/11/24 0100 Arm 5 Wound 02/11/24 Skin Tear Elbow Anterior;Right 02/11/24 0630 Elbow 4 Psychosocial Within Defined Limits * Nursing Assessment - Kate Abraham, [place] - 02/15/2024 7:55 PM CDT Nursing Assessment Head to Toe Head to Toe Assessment Shift Summary Pt. Is A&OX4 and able to make her needs known. Pt. Reported pain this shift in her lower back a7/10. PRN tylenol and oxycodone was given which provided relief. This information writer called wrinkly this evening about pt.'s TLSO fitting issue. Pure wick was changed. Pt. Eating and drinking adequately. Neuros intact, family at bedside.Will continue to follow POC. Neurologic/Cognitive Within Defined Limits HEENT Within Defined Limits Cardiac Within Defined Limits Respiratory Within defined limits Neurovascular Within Defined Limits Gastrointestinal Within Defined Limits Stool (unmeasured): 1 (02/15/24 1447) Stool Amount: large (02/15/24 1447) Stool Color: dark brown (02/13/24 0300) Genitourinary Assessment Within Defined Limits except for: Comments: Pure wick Musculoskeletal Assessment Within Defined Limits except for: Musculoskeletal Assessment: General Mobility: Generalized weakness and mildly impaired Range of Motion: General - mildly impaired and brace/immobilizer/splint/sling/cast Integumentary Within Defined Limits Patient Lines/Drains/Airways Status Active LDAs Name Placement date Placement time Site Days Peripheral IV 02/10/24 20 gauge Left Forearm 02/10/24 0653 -- 5 Peripheral IV 02/11/24 20 gauge;1 3/4 in length Anterior;Right Forearm 02/11/24 1228 -- 4 Drain Back Left 1 02/10/24 1803 -- 5 Drain Back Right 2 02/10/24 1804 -- 5 Female External Urinary Catheter 02/12/24 1830 -- 3 Wound 02/10/24 Incision Back 02/10/24 0803 Back 5 Wound 02/11/24 Other (comment) Arm Anterior;Proximal;Right;Upper 02/11/24 0100 Arm 4 Wound 02/11/24 Skin Tear Elbow Anterior;Right 02/11/24 0630 Elbow 4 Psychosocial Within Defined Limits * Interval Note Provider - Destiny Lopez PA-C - 02/15/2024 1:52 PM CDT HV Drain Removal Left HV drain pulled given minimal drainage overnight and today. Surgical site C/D/I and without erythema or drainage, area cleaned with iodine. Suture cut and vacuum removed from drain, drain pulled, no CSF leak noted, minor drainage noted. Steri strips placed, patient tolerated procedure well. Destiny Lopez PA-C, 02/15/2024 1:52 PM Neurosurgery Service [facility] * Nursing Assessment - Lulú Collazo RN - 02/15/2024 10:00 AM CDT Nursing Assessment Head to Toe Head to Toe Assessment Shift Summary Shift Summary D/A/R/P: Pt alert and oriented x 4. Pleasant and cooperative. Cymraes speaking. VSS and afebrile. Appetite good. Cares completed. Continue to monitor and continue POC. Neurologic/Cognitive Within Defined Limits Frequent Neuro Assessments have been documented in the flowsheets HEENT Assessment Within Defined Limits except for: Neck Symptoms: Tenderness Cardiac Within Defined Limits Respiratory Within defined limits Neurovascular Within Defined Limits Gastrointestinal Within Defined Limits Stool (unmeasured): 1 (02/13/24 0300) Stool Color: dark brown (02/13/24 0300) Genitourinary Within Defined Limits Musculoskeletal Assessment Within Defined Limits except for: Musculoskeletal Assessment: General Mobility: Generalized weakness and mildly impaired Integumentary Assessment Within Defined Limits except for: Comments: Incision. Hemovac Patient Lines/Drains/Airways Status Active LDAs Name Placement date Placement time Site Days Peripheral IV 02/10/24 20 gauge Left Forearm 02/10/24 0653 -- 5 Peripheral IV 02/11/24 20 gauge;1 3/4 in length Anterior;Right Forearm 02/11/24 1228 -- 3 Drain Back Left 1 02/10/24 1803 -- 4 Drain Back Right 2 02/10/24 1804 -- 4 Female External Urinary Catheter 02/12/24 1830 -- 2 Wound 02/10/24 Incision Back 02/10/24 0803 Back 5 Wound 02/11/24 Other (comment) Arm Anterior;Proximal;Right;Upper 02/11/24 0100 Arm 4 Wound 02/11/24 Skin Tear Elbow Anterior;Right 02/11/24 0630 Elbow 4 Psychosocial Within Defined Limits * Nursing Assessment - Juana Johns RN - 02/15/2024 6:09 AM CDT Nursing Assessment Head to Toe Head to Toe Assessment Shift Summary Pt A/Ox4 and makes needs known using call light appropriately. Cymraes speaking. Neuro intact. VSS on 1L NC overnight. Purewick in place. Pt experiencing difficulty having a BM and has some abdominaldiscomfort. Discussed adding more bowel meds. Pain managed with tylenol and oxy. No out of bed activity overnight. Pt slept well in between cares. Will continue to monitor and follow POC. Neurologic/Cognitive Within Defined Limits Frequent Neuro Assessments have been documented in the flowsheets HEENT Within Defined Limits Cardiac Within Defined Limits Respiratory Within defined limits Neurovascular Within Defined Limits Gastrointestinal Assessment Within Defined Limits except for: Additional GI Signs/Symptoms: constipation and abdominal discomfort Stool (unmeasured): 1 (02/13/24 0300) Stool Color: dark brown (02/13/24 0300) Genitourinary Within Defined Limits Comments: Purewick Musculoskeletal Within Defined Limits Musculoskeletal Assessment: General Mobility: Generalized weakness and mildly impaired Comments: Mobility limited d/t pain Integumentary Within Defined Limits Patient Lines/Drains/Airways Status Active LDAs Name Placement date Placement time Site Days Peripheral IV 02/10/24 20 gauge Left Forearm 02/10/24 0653 -- 4 Peripheral IV 02/11/24 20 gauge;1 3/4 in length Anterior;Right Forearm 02/11/24 1228 -- 3 Drain Back Left 1 02/10/24 1803 -- 4 Drain Back Right 2 02/10/24 1804 -- 4 Female External Urinary Catheter 02/12/24 1830 -- 2 Wound 02/10/24 Incision Back 02/10/24 0803 Back 4 Wound 02/11/24 Other (comment) Arm Anterior;Proximal;Right;Upper 02/11/24 0100 Arm 4 Wound 02/11/24 Skin Tear Elbow Anterior;Right 02/11/24 0630 Elbow 3 Psychosocial Within Defined Limits * Nursing Assessment - Nolberto Lozada, RN - 02/14/2024 10:52 PM CDT Nursing Assessment Head to Toe Head to Toe Assessment Shift Summary Cymraes speaking pt, reluctant of making needs known. C/O of pain on her back receiving oxycodone PRN. Pt able to ambulate in the room with a walker. Able to have a brace on while in a sitting position. Sleeping in between care. Poc in progress. Neurologic/Cognitive Within Defined Limits HEENT Within Defined Limits Cardiac Within Defined Limits Respiratory Assessment Within Defined Limits except for: Comments: 1L of oxygen Neurovascular Within Defined Limits Gastrointestinal Within Defined Limits Stool (unmeasured): 1 (02/13/24 0300) Stool Color: dark brown (02/13/24 0300) Genitourinary Assessment Within Defined Limits except for: Comments: Purewick in place Musculoskeletal Assessment Within Defined Limits except for: Musculoskeletal Assessment: General Mobility: Generalized weakness Integumentary Assessment Within Defined Limits except for: Skin Assessment Integrity - see Avatar LDA documentation Comments: 2 drains at the back. Patient Lines/Drains/Airways Status Active LDAs Name Placement date Placement time Site Days Peripheral IV 02/10/24 20 gauge Left Forearm 02/10/24 0653 -- 4 Peripheral IV 02/11/24 20 gauge;1 3/4 in length Anterior;Right Forearm 02/11/24 1228 -- 3 Drain Back Left 1 02/10/24 1803 -- 4 Drain Back Right 2 02/10/24 1804 -- 4 Female External Urinary Catheter 02/12/24 1830 -- 2 Wound 02/10/24 Incision Back 02/10/24 0803 Back 4 Wound 02/11/24 Other (comment) Arm Anterior;Proximal;Right;Upper 02/11/24 0100 Arm 3 Wound 02/11/24 Skin Tear Elbow Anterior;Right 02/11/24 0630 Elbow 3 Psychosocial Within Defined Limits * Nursing Assessment - Leta Sanders, RN - 02/14/2024 11:13 AM CDT Nursing Assessment Head to Toe Head to Toe Assessment Shift Summary Pt A&Ox 4. Cymraes speaking.Pain rated 7/10 on surgical incision. Managed with tylenol and PRN Oxy. Pt on 3L NC. Brace on when up and seating.Pt ambulated on hallway with a walker. @ Hemovac drains. Small amount of serosanguineous. output Sat on chair using her brace.Daughter at bedside.Continue to monitor. Neurologic/Cognitive Within Defined Limits HEENT Within Defined Limits Cardiac Within Defined Limits Respiratory Assessment Within Defined Limits except for: Comments: Continous O2 delivery by NC @3L Neurovascular Within Defined Limits Gastrointestinal Within Defined Limits Stool (unmeasured): 1 (02/13/24 0300) Stool Color: dark brown (02/13/24 0300) Genitourinary Assessment Within Defined Limits except for: Voiding: Urinary catheter in place Urine characteristics: , isaac Musculoskeletal Assessment Within Defined Limits except for: Musculoskeletal Assessment: General Mobility: Generalized weakness Integumentary Assessment Within Defined Limits except for: Skin Assessment Integrity - see Avatar LDA documentation and skin tear Integrity Location - right forearm Patient Lines/Drains/Airways Status Active LDAs Name Placement date Placement time Site Days Peripheral IV 02/10/24 20 gauge Left Forearm 02/10/24 0653 -- 4 Peripheral IV 02/11/24 20 gauge;1 3/4 in length Anterior;Right Forearm 02/11/24 1228 -- 2 Drain Back Left 1 02/10/24 1803 -- 3 Drain Back Right 2 02/10/24 1804 -- 3 Female External Urinary Catheter 02/12/24 1830 -- 1 Wound 02/10/24 Incision Back 02/10/24 0803 Back 4 Wound 02/11/24 Other (comment) Arm Anterior;Proximal;Right;Upper 02/11/24 0100 Arm 3 Wound 02/11/24 Skin Tear Elbow Anterior;Right 02/11/24 0630 Elbow 3 Psychosocial Assessment Within Defined Limits except for: Psychosocial Assessment: Observed Patient Behaviors: Pleasant * Nursing Assessment - Tg Goodman RN - 02/14/2024 4:42 AM CDT Nursing Assessment Head to Toe Head to Toe Assessment Shift Summary Pt alert and oriented, Cymraes speaking, sleeping during the night, denies pain, on O2 3 Liters viaNasal Cannula, denies pain sleeping during the night, scheduled IV antibiotics given, Hv out put left = 10, HV right =30. Will continue to follow Plan of care. Neurologic/Cognitive Within Defined Limits HEENT Within Defined Limits Cardiac Within Defined Limits Respiratory Assessment Within Defined Limits except for: Comments: O2 3 Liters via NC Neurovascular Within Defined Limits Gastrointestinal Within Defined Limits Stool (unmeasured): 1 (02/13/24 0300) Stool Color: dark brown (02/13/24 030) Genitourinary Within Defined Limits Comments: External female catheter Musculoskeletal Within Defined Limits Musculoskeletal Assessment: General Mobility: Generalized weakness Integumentary Within Defined Limits Skin Assessment Integrity - see Avatar LDA documentation Patient Lines/Drains/Airways Status Active LDAs Name Placement date Placement time Site Days Peripheral IV 02/10/24 20 gauge Left Forearm 02/10/24 0653 -- 3 Peripheral IV 02/11/24 20 gauge;1 3/4 in length Anterior;Right Forearm 02/11/24 1228 -- 2 Drain Back Left 1 02/10/24 1803 -- 3 Drain Back Right 2 02/10/24 1804 -- 3 Female External Urinary Catheter 02/12/24 1830 -- 1 Wound 02/10/24 Incision Back 02/10/24 0803 Back 3 Wound 02/11/24 Other (comment) Arm Anterior;Proximal;Right;Upper 02/11/24 0100 Arm 3 Wound 02/11/24 Skin Tear Elbow Anterior;Right 02/11/24 0630 Elbow 2 Psychosocial Psychosocial * Nursing Assessment - Leta Sanders RN - 02/13/2024 10:06 PM CDT Nursing Assessment Head to Toe Head to Toe Assessment Shift Summary Pt A&OX4.Cymraes speaking. On 3L NC. Pain rated 4 or 5 /10 managed with tylenol and oxy given before brace fitting. Brace at bedside.Purewick in place. Not BM during shift. Two Hemovac draining serosanguineous fluid. Continue with care plan. Neurologic/Cognitive Within Defined Limits HEENT Within Defined Limits Cardiac Within Defined Limits Respiratory Assessment Within Defined Limits except for: Comments: Oxygen on NC 3L Neurovascular Within Defined Limits Gastrointestinal Within Defined Limits Stool (unmeasured): 1 (02/13/24 0300) Stool Color: dark brown (02/13/24 0300) Genitourinary Assessment Within Defined Limits except for: Voiding: Urinary catheter in place Urine characteristics: , isaac Musculoskeletal Assessment Within Defined Limits except for: Musculoskeletal Assessment: General Mobility: Generalized weakness Integumentary Assessment Within Defined Limits except for: Skin Assessment Integrity - see Avatar LDA documentation Patient Lines/Drains/Airways Status Active LDAs Name Placement date Placement time Site Days Peripheral IV 02/10/24 20 gauge Left Forearm 02/10/24 0653 -- 3 Peripheral IV 02/11/24 20 gauge;1 3/4 in length Anterior;Right Forearm 02/11/24 1228 -- 2 Drain Back Left 1 02/10/24 1803 -- 3 Drain Back Right 2 02/10/24 1804 -- 3 Female External Urinary Catheter 02/12/24 1830 -- 1 Wound 02/10/24 Incision Back 02/10/24 0803 Back 3 Wound 02/11/24 Other (comment) Arm Anterior;Proximal;Right;Upper 02/11/24 0100 Arm 2 Wound 02/11/24 Skin Tear Elbow Anterior;Right 02/11/24 0630 Elbow 2 Psychosocial Assessment Within Defined Limits except for: Psychosocial Assessment: Family Behavior: at bedside and attentive to patient * Nursing Assessment - Carolyne Rodriguez RN - 02/13/2024 3:01 PM CDT Nursing Assessment Head to Toe Head to Toe Assessment Shift Summary Pt is Cymraes speaking and able to make her needs known. She Ax2 with walker and was able to stand for brace measurements. She is continent of B&B and uses a purewick and bed diaz. She is eating and drinking well. Stopped CADD pump this morning and pt managing pain with PRN acetaminophen. She remains on 2L NC and is VSS. Hemovac draining sero-sang fluid and dressing intact. Family at bedside ar e caring and helpful. No concerns at this time. Will continue to monitor. Carolyne Rodrigeuz RN, 02/13/2024 5:42 PM Neurologic/Cognitive Within Defined Limits Frequent Neuro Assessments have been documented in the flowsheets HEENT Assessment Within Defined Limits except for: Teeth Symptoms: Dental appliance and tooth/teeth missing Comments: Uses dentures at home. Cardiac Within Defined Limits Respiratory Assessment Within Defined Limits except for: Comments: 2L NC Neurovascular Assessment Within Defined Limits except for: Neurovascular LLE Sensation: Sensation decreased and chronic Gastrointestinal Assessment Within Defined Limits except for: Comments: BM during overnight. Stool (unmeasured): 1 (02/13/24 0300) Stool Color: dark brown (02/13/24 0300) Genitourinary Assessment Within Defined Limits except for: Voiding: Urinary catheter in place Comments: Voiding well with Purewick Musculoskeletal Assessment Within Defined Limits except for: Musculoskeletal Assessment: General Mobility: Mildly impaired Range of Motion: LLE - moderately impaired Comments: Ax2 standing with walker. Weakness on LLE Integumentary Comments: Erna incision covered with Island dressing. Hemovac drains x2 draining sero-sang . Patient Lines/Drains/Airways Status Active LDAs Name Placement date Placement time Site Days Peripheral IV 02/10/24 20 gauge Left Forearm 02/10/24 0653 -- 3 Peripheral IV 02/11/24 20 gauge;1 3/4 in length Anterior;Right Forearm 02/11/24 1228 -- 2 Drain Back Left 1 02/10/24 1803 -- 2 Drain Back Right 2 02/10/24 1804 -- 2 Female External Urinary Catheter 02/12/24 1830 -- less than 1 Wound 02/10/24 Incision Back 02/10/24 0803 Back 3 Wound 02/11/24 Other (comment) Arm Anterior;Proximal;Right;Upper 02/11/24 0100 Arm 2 Wound 02/11/24 Skin Tear Elbow Anterior;Right 02/11/24 0630 Elbow 2 Psychosocial Within Defined Limits Psychosocial Assessment: Family Behavior: at bedside, attentive to patient, participating in care and interacting with patient * Nursing Assessment - Missy Greenberg RN - 02/13/2024 7:30 AM CDT Nursing Assessment Head to Toe Head to Toe Assessment Shift Summary Pt is qatari speaking and required and a beef boner. Pt remained in bed throughout the shift. Pt verbalized pain with movement. Pt had a BM this shift. No acute changes overnight. Follow establishedPOC. Missy Greenberg RN, 02/13/2024 7:32 AM Neurologic/Cognitive Within Defined Limits Frequent Neuro Assessments have been documented in the flowsheets HEENT Assessment Within Defined Limits except for: Teeth Symptoms: Dental appliance and tooth/teeth missing Cardiac Within Defined Limits Respiratory Assessment Within Defined Limits except for: Comments: 2L NC Neurovascular Assessment Within Defined Limits except for: Neurovascular LLE Sensation: Sensation decreased Gastrointestinal Within Defined Limits Stool (unmeasured): 1 (02/13/24 0300) Stool Color: dark brown (02/13/24 0300) Genitourinary Within Defined Limits Comments: Mendieta removed. Pt reported voiding without difficulties. Musculoskeletal Assessment Within Defined Limits except for: Musculoskeletal Assessment: General Mobility: Mildly impaired Range of Motion: LLE - moderately impaired Integumentary Assessment Within Defined Limits except for: Skin Assessment Integrity - see Avatar LDA documentation Patient Lines/Drains/Airways Status Active LDAs Name Placement date Placement time Site Days Peripheral IV 02/10/24 20 gauge Left Forearm 02/10/24 0653 -- 3 Peripheral IV 02/11/24 20 gauge;1 3/4 in length Anterior;Right Forearm 02/11/24 1228 -- 1 Drain Back Left 1 02/10/24 1803 -- 2 Drain Back Right 2 02/10/24 1804 -- 2 Female External Urinary Catheter 02/12/24 1830 -- less than 1 Wound 02/10/24 Incision Back 02/10/24 0803 Back 2 Wound 02/11/24 Other (comment) Arm Anterior;Proximal;Right;Upper 02/11/24 0100 Arm 2 Wound 02/11/24 Skin Tear Elbow Anterior;Right 02/11/24 0630 Elbow 2 Psychosocial Within Defined Limits * Nursing Assessment - Carolyne Rodriguez RN - 02/12/2024 7:09 PM CDT Nursing Assessment Head to Toe Head to Toe Assessment Shift Summary Pt is Cymraes speaking and is able to make her needs known. Island over dressing intact with some drainage. Hemovac drains intact and draining. Pt reports pain between 5-7 out of 10 but has not used PRINTING ESTIMATOR to give on demand dose. Mendieta removed and pt voided without issue. Purewick placed after dinner and family at bedside supportive and caring. Pt remains on 2L NC and desats when on RA. Unable to hav e pt stand for TSLO brace fitting and she is heavy assist of 2 when transferring from bed to commode. She is eating and drinking well. No acute events this shift. Will continue to monitor and follow POC. Carolyne Rodriguez RN, 02/12/2024 7:19 PM Neurologic/Cognitive Within Defined Limits Frequent Neuro Assessments have been documented in the flowsheets HEENT Assessment Within Defined Limits except for: Teeth Symptoms: Dental appliance and tooth/teeth missing Cardiac Within Defined Limits Respiratory Assessment Within Defined Limits except for: Comments: 2L NC Neurovascular Assessment Within Defined Limits except for: Neurovascular LLE Sensation: Sensation decreased Gastrointestinal Assessment Within Defined Limits except for: Comments: No BM this shift Genitourinary Assessment Within Defined Limits except for: Voiding: Urinary catheter in place Comments: Mendieta removed at 1300 Musculoskeletal Assessment Within Defined Limits except for: Musculoskeletal Assessment: General Mobility: Mildly impaired Range of Motion: LLE - moderately impaired Comments: Ax2 to stand and pt unable to support own weight. Weakness on LLE Integumentary Comments: Erna incisioncovered with Island dressing. Hemovac drains x2 drainign sero-sang . Patient Lines/Drains/Airways Status Active LDAs Name Placement date Placement time Site Days Peripheral IV 02/10/24 20 gauge Left Forearm 02/10/24 0653 -- 2 Peripheral IV 02/11/24 20 gauge;1 3/4 in length Anterior;Right Forearm 02/11/24 1228 -- 1 Drain Back Left 1 02/10/24 1803 -- 2 Drain Back Right 2 02/10/24 1804 -- 2 Female External Urinary Catheter 02/12/24 1830 -- less than 1 Wound 02/10/24 Incision Back 02/10/24 0803 Back 2 Wound 02/11/24 Other (comment) Arm Anterior;Proximal;Right;Upper 02/11/24 0100 Arm 1 Wound 02/11/24 Skin Tear Elbow Anterior;Right 02/11/24 0630 Elbow 1 Psychosocial Within Defined Limits * Nursing Assessment - Carolyne Rodriguez RN - 02/12/2024 2:40 PM CDT Nursing Assessment Head to Toe Head to Toe Assessment Shift Summary Shift Summary Neurologic/Cognitive Within Defined Limits Frequent Neuro Assessments have been documented in the flowsheets HEENT Assessment Within Defined Limits except for: Teeth Symptoms: Dental appliance and tooth/teeth missing Cardiac Within Defined Limits Respiratory Assessment Within Defined Limits except for: Comments: 2L NC Neurovascular Assessment Within Defined Limits except for: Neurovascular LLE Sensation: Sensation decreased Gastrointestinal Assessment Within Defined Limits except for: Comments: No BM this shift Genitourinary Assessment Within Defined Limits except for: Voiding: Urinary catheter in place Comments: Mendieta removed at 1300 Musculoskeletal Assessment Within Defined Limits except for: Musculoskeletal Assessment: General Mobility: Mildly impaired Range of Motion: LLE - moderately impaired Comments: Ax2 to stand and pt unable to support own weight. Weakness on LLE Integumentary Comments: Erna incisioncovered with Island dressing. Hemovac drains x2 drainign sero-sang . Patient Lines/Drains/Airways Status Active LDAs Name Placement date Placement time Site Days Peripheral IV 02/10/24 20 gauge Left Forearm 02/10/24 0653 -- 2 Peripheral IV 02/11/24 20 gauge;1 3/4 in length Anterior;Right Forearm 02/11/24 1228 -- 1 Drain Back Left 1 02/10/24 1803 -- 1 Drain Back Right 2 02/10/24 1804 -- 1 Wound 02/10/24 Incision Back 02/10/24 0803 Back 2 Wound 02/11/24 Other (comment) Arm Anterior;Proximal;Right;Upper 02/11/24 0100 Arm 1 Wound 02/11/24 Skin Tear Elbow Anterior;Right 02/11/24 0630 Elbow 1 Psychosocial Within Defined Limits * Nursing Assessment - Valarie Kaba RN - 02/12/2024 5:20 AM CDT Nursing Assessment Head to Toe Head to Toe Assessment Shift Summary Patient alert and oriented x 4 throughout shift. Cymraes speaking, [facility] Banquet Coordinator used during assessments. Neuro's intact and unchanged. CADD pump in place. Pain mostly managed with pump. PRN IV Zofran given d/t c/o of nausea. Helpful. NS running 100ml/hr. Advanced diet to soft diet. Continue to monitor and follow POC. Valarie Kaba RN Neurologic/Cognitive Within Defined Limits Frequent Neuro Assessments have been documented in the flowsheets HEENT Within Defined Limits Cardiac Within Defined Limits Vegetable Loader - remote telemetry Comments: Soft BP Respiratory Within defined limits Neurovascular Within Defined Limits Gastrointestinal Within Defined Limits Genitourinary Within Defined Limits Voiding: Urinary catheter in place Musculoskeletal Assessment Within Defined Limits except for: Musculoskeletal Assessment: General Mobility: Generalized weakness Range of Motion: General - brace/immobilizer/splint/sling/cast Comments: TLSO measurement planned for tomorrow morning; per MD [employer] [place]; can get up before brace; therapies wait until braced Integumentary Within Defined Limits Skin Assessment Integrity - see Avatar LDA documentation and skin tear Integrity Location - Skin tears easily Patient Lines/Drains/Airways Status Active LDAs Name Placement date Placement time Site Days Peripheral IV 02/10/24 20 gauge Left Forearm 02/10/24 0653 -- 1 Peripheral IV 02/11/24 20 gauge;1 3/4 in length Anterior;Right Forearm 02/11/24 1228 -- less than 1 Drain Back Left 1 02/10/24 1803 -- 1 Drain Back Right 2 02/10/24 1804 -- 1 Wound 02/10/24 Incision Back 02/10/24 0803 Back 1 Wound 02/11/24 Other (comment) Arm Anterior;Proximal;Right;Upper 02/11/24 0100 Arm 1 Wound 02/11/24 Skin Tear Elbow Anterior;Right 02/11/24 0630 Elbow less than 1 Urinary Catheter OR Prone >2hrs 02/10/24 0745 -- 1 Psychosocial Within Defined Limits * Nursing Assessment - Valarie Kaba RN - 02/11/2024 10:16 PM CDT Nursing Assessment Head to Toe Head to Toe Assessment Shift Summary Patient alert and oriented x 4 throughout shift. Cymraes speaking, [facility] Banquet Coordinator used during assessments. Neuro's intact and unchanged. CADD pump in place. Pain mostly managed with pump. NS running 100ml/hr. Clear liquid diet. Second bag of Blood transfusion running upon arrival. Upon completion, hgb labs drawn per order and sent to lab. Hgb 8.9, notified. Continue to monitor and follow POC. Valarie Kaba RN Neurologic/Cognitive Within Defined Limits Frequent Neuro Assessments have been documented in the flowsheets HEENT Within Defined Limits Cardiac Within Defined Limits Vegetable Loader - remote telemetry Comments: Soft BP Respiratory Within defined limits Neurovascular Within Defined Limits Gastrointestinal Within Defined Limits Genitourinary Within Defined Limits Voiding: Urinary catheter in place Musculoskeletal Assessment Within Defined Limits except for: Musculoskeletal Assessment: General Mobility: Generalized weakness Range of Motion: General - brace/immobilizer/splint/sling/cast Comments: TLSO measurement planned for tomorrow morning; per MD [employer] [place]; can get up before brace; therapies wait until braced Integumentary Within Defined Limits Skin Assessment Integrity - see Avatar LDA documentation and skin tear Integrity Location - Skin tears easily Patient Lines/Drains/Airways Status Active LDAs Name Placement date Placement time Site Days Peripheral IV 02/10/24 20 gauge Left Forearm 02/10/24 0653 -- 1 Peripheral IV 02/11/24 20 gauge;1 3/4 in length Anterior;Right Forearm 02/11/24 1228 -- less than 1 Drain Back Left 1 02/10/24 1803 -- 1 Drain Back Right 2 02/10/24 1804 -- 1 Wound 02/10/24 Incision Back 02/10/24 0803 Back 1 Wound 02/11/24 Other (comment) Arm Anterior;Proximal;Right;Upper 02/11/24 0100 Arm less than 1 Wound 02/11/24 Skin Tear Elbow Anterior;Right 02/11/24 0630 Elbow less than 1 Urinary Catheter OR Prone >2hrs 02/10/24 0745 -- 1 Psychosocial Within Defined Limits * Nursing Assessment - Jesus Joyce RN - 02/11/2024 7:09 PM CDT Nursing Assessment Head to Toe Head to Toe Assessment Shift Summary Alert and oriented X4, pleasant, has family at bedside, and able to make needs known. Cymraes speaking and family has just left the bedside. Incision dressing is clean, dry, and intact. Able to take pills whole, continuous pain pump in use. Patient is receiving 2 units of PRBC, will draw hemoglobinafter. No other concerns. BP 114/54 (Cuff Location: Right Arm) Pulse 108 Temp 37.4 ??C (99.4 ??F) (Axillary) Resp 14 Ht 1.289 m (4' 2.75) Wt 48.8 kg (107 lb 9.6 oz) SpO2 98% BMI 29.37 kg/m?? Neurologic/Cognitive Within Defined Limits Frequent Neuro Assessments have been documented in the flowsheets HEENT Within Defined Limits Comments: Family stated she wears dentures Cardiac Within Defined Limits Respiratory Within defined limits Comments: 2L nasal canula Neurovascular Within Defined Limits Gastrointestinal Within Defined Limits Genitourinary Within Defined Limits Voiding: Urinary catheter in place Musculoskeletal Assessment Within Defined Limits except for: Musculoskeletal Assessment: General Mobility: Generalized weakness Integumentary Assessment Within Defined Limits except for: Skin Assessment Integrity - see Avatar LDA documentation Patient Lines/Drains/Airways Status Active LDAs Name Placement date Placement time Site Days Peripheral IV 02/10/24 20 gauge Left Forearm 02/10/24 0653 -- 1 Peripheral IV 02/11/24 20 gauge;1 3/4 in length Anterior;Right Forearm 02/11/24 1228 -- less than 1 Drain Back Left 1 02/10/24 1803 -- 1 Drain Back Right 2 02/10/24 1804 -- 1 Wound 02/10/24 Incision Back 02/10/24 0803 Back 1 Wound 02/11/24 Other (comment) Arm Anterior;Proximal;Right;Upper 02/11/24 0100 Arm less than 1 Wound 02/11/24 Skin Tear Elbow Anterior;Right 02/11/24 0630 Elbow less than 1 Urinary Catheter OR Prone >2hrs 02/10/24 0745 -- 1 Psychosocial Within Defined Limits Psychosocial Assessment: Observed Patient Behaviors: Pleasant Family Behavior: at bedside, attentive to patient and interacting with patient Jesus Joyce RN, 02/11/2024 7:15 PM * Nursing Assessment - Sylvie Haynes RN - 02/11/2024 2:39 PM CDT Nursing Assessment Head to Toe Head to Toe Assessment Shift Summary Pt a/ox4, able to make needs known. Cymraes speaking. Daughter at bedside. Advanced from clear to full liquid diet, tolerating well. TLSO brace could not be measured today due to time constraints/pt requiring blood transfusion- Ananda plans to return tomorrow. One unit PRBC given, once finished plan to transfuse 1 more unit. Denies nausea. Pt was c/o N/T in right foot per last assessment pt states symptoms have resolved. Hypotensive- MD aware, pt receiving fluids along with prbc. Neurologic/Cognitive Within Defined Limits Frequent Neuro Assessments have been documented in the flowsheets HEENT Assessment Within Defined Limits except for: Teeth Symptoms: Tooth/teeth missing Cardiac Within Defined Limits Respiratory Within defined limits Comments: 2L NC Neurovascular Within Defined Limits Comments: N/T in right foot resolved Gastrointestinal Within Defined Limits Genitourinary Assessment Within Defined Limits except for: Voiding: Urinary catheter in place Musculoskeletal Within Defined Limits Musculoskeletal Assessment: General Mobility: Generalized weakness Range of Motion: General - brace/immobilizer/splint/sling/cast Comments: TLSO measurement planned for tomorrow morning Integumentary Assessment Within Defined Limits except for: Skin Assessment Integrity - see Avatar LDA documentation and skin tear Comments: Skin tears easily Patient Lines/Drains/Airways Status Active LDAs Name Placement date Placement time Site Days Peripheral IV 02/10/24 20 gauge Left Forearm 02/10/24 0653 -- 1 Peripheral IV 02/11/24 20 gauge;1 3/4 in length Anterior;Right Forearm 02/11/24 1228 -- less than 1 Drain Back Left 1 02/10/24 1803 -- less than 1 Drain Back Right 2 02/10/24 1804 -- less than 1 Wound 02/10/24 Incision Back 02/10/24 0803 Back 1 Wound 02/11/24 Other (comment) Arm Anterior;Proximal;Right;Upper 02/11/24 0100 Arm less than 1 Wound 02/11/24 Skin Tear Elbow Anterior;Right 02/11/24 0630 Elbow less than 1 Urinary Catheter OR Prone >2hrs 02/10/24 0745 -- 1 Psychosocial Within Defined Limits * Nursing Assessment - Valarie Kaba RN - 02/11/2024 6:24 AM CDT Nursing Assessment Head to Toe Head to Toe Assessment Shift Summary Patient alert and oriented x 4 throughout shift. Cymraes speaking, daughter at bedside, interpreting. Admission questions and four eyes skin assessment completed, see separate note. BP hypotensive, providers aware. Neuro's intact and unchanged. CADD pump in place. Pain mostly managed with pump. NS running 100ml/hr. Clear liquid diet. 1 episode of emesis, PRN IV Zofran given, helpful. Daughter noted that lab advised that pt skin is very delicate, skin tear when removing tape noted no R upper arm, near elbow. Added to LDA. Continue to monitor and follow POC. Valarie Kaba RN Neurologic/Cognitive Within Defined Limits Frequent Neuro Assessments have been documented in the flowsheets HEENT Within Defined Limits Cardiac Within Defined Limits Vegetable Loader - remote telemetry Comments: Soft BP Respiratory Within defined limits Neurovascular Within Defined Limits Gastrointestinal Within Defined Limits Genitourinary Within Defined Limits Voiding: Urinary catheter in place Musculoskeletal Within Defined Limits Musculoskeletal Assessment: General Mobility: Generalized weakness Integumentary Within Defined Limits Skin Assessment Integrity - see Avatar LDA documentation Patient Lines/Drains/Airways Status Active LDAs Name Placement date Placement time Site Days Peripheral IV 02/10/24 20 gauge Left Forearm 02/10/24 0653 -- 1 Peripheral IV 02/10/24 20 gauge Left Hand 02/10/24 0820 -- 1 Drain Back Left 1 02/10/24 1803 -- less than 1 Drain Back Right 2 02/10/24 1804 -- less than 1 Wound 02/10/24 Incision Back 02/10/24 0803 Back 1 Wound 02/11/24 Other (comment) Arm Anterior;Proximal;Right;Upper 02/11/24 0100 Arm less than 1 Wound 02/11/24 Skin Tear Elbow Anterior;Right 02/11/24 0630 Elbow less than 1 Urinary Catheter OR Prone >2hrs 02/10/24 0745 -- 1 Psychosocial Within Defined Limits Psychosocial Assessment: Family Behavior: at bedside and attentive to patient * Interval Note Provider - Juanita Alexander MD - 02/10/2024 10:00 PM CDT Surgery Post Op Check S: Patient doing okay. Complains of significant pain in blle and bl hips L>R, at t his point, prior to CADD. Endorses nausea, no vomiting. Has not passed flatulence. O: BP (!) 75/50 (Cuff Location: Left Arm) Pulse 97 Temp 35.7 ??C (96.3 ??F) (Axillary) Resp 20 Ht 1.289 m (4' 2.75) Wt 48.8 kg (107 lb 9.6 oz) SpO2 99% BMI 29.37 kg/m?? Gen: alert, NAD. Lying in bed. Pulm: no respiratory distress Abd: soft, nontender to palpation, nondistended. Extrem: warm, well-perfused, no edema. Skin: no rashes, lesions. Neuro: Mental status: Alert, awake. Oriented to self, date, and place. Normal speech and language. Motor: Follows commands x4 extremities, 4/5 poultry debeaker strength bilaterally and 3/5 plantar/dorsiflexion bilaterally Sensory: Sensation intact in all 4 extremities Intake/Output Summary (Last 24 hours) at 02/11/2024 0618 Last data filed at 02/11/2024 0200 Gross per 24 hour Intake 9357 ml Output 6050 ml Net 3307 ml A/P: 73 y.o. female POD 0 s/p A15-B2AD posterior segmental fusion with deformity correction and left insertion L5-S1 PLIF - Routine post-op cares - Serial neuro exams, q4h - SBP <140 - Pain control - Monitor incision site Juanita Alexander MD, 02/11/2024 6:18 AM EM PGY-2 * Op Note Immediate - Justus Fisher MD - 02/10/2024 8:38 AM CDT [facility] Immediate Post Operative Note Note written: Day of Surgery Patient Name: Nuria Aguilar ( ) OR Date: 02/10/2024 0730 Procedure(s) and Anesthesia Type: * SPINAL FUSION POST LUMBAR/THORACIC W/[id number] T11-S2/iliac crest fusion with posterior lumbar interbody fusion and cell saver - General Pre-op History and Physical reviewed. Pre-Op Diagnosis Codes: * Scoliosis of lumbar region due to degenerative disease of spine in adult [M41.56] Post-Op Diagnosis Codes: * Scoliosis of lumbar region due to degenerative disease of spine in adult [M41.56] Surgeons and Role: * Tushar Antoine MD - Primary * Justus Fisher MD - Resident - Assisting Antibiotics Administered bacitracin 500 unit/g external ointment Last given: 1825 Frequency: INTRA-OP ONCE PRN * No tourniquets in log * Drain Back Left 1 (Active) Drain Back Right 2 (Active) Implant Name Type Inv. Item Serial No. Medical Office Assistant Lot No. LRB No. Used Action SCREW 6.5 X 40MM Screw/[place] SCREW 6.5 X 40MM [employer] SOFAMOR DANEK [id number] Unknown 1 Implanted SCREW [id number] 5/6 KERNS MAS 6.5X35 Screw/[place] SCREW [id number] 5/6 KERNS MAS 6.5X35 [employer] SOFAMOR DANEK [id number] Unknown 1 Implanted SCREW [id number] 5/6 KERNS MAS 6.5X35 Screw/[place] SCREW [id number] 5/6 KERNS MAS 6.5X35 [employer] SOFAMOR DANEK [id number] Unknown 1 Implanted SCREW [id number] 5/6 KERNS MAS 6.5X50 Screw/[place] SCREW [id number] 5/6 KERNS MAS 6.5X50 [employer] SOFAMOR DANEK [id number] Unknown 1 Implanted SCREW 6.5 X 45MM Screw/[place] SCREW 6.5 X 45MM [employer] SOFAMOR DANEK [id number] Unknown 1 Implanted SCREW SPINAL 5.5 X 35MM KERNS Screw/[place] SCREW SPINAL 5.5 X 35MM KERNS [employer] SOFAMOR DANEK [id number] Unknown 1 Implanted SCREW 5.5 X 40MM SCREW 5.5 X 40MM [employer] SOFAMOR DANEK [id number] Unknown 1 Implanted SCREW 6.5 X 40MM Screw/[place] SCREW 6.5 X 40MM [employer] SOFAMOR DANEK [id number] Unknown 1 Implanted SCREW [id number] 5/6 KERNS MAS 6.5X35 Screw/[place] SCREW [id number] 5/6 KERNS MAS 6.5X35 [employer] SOFAMOR DANEK [id number] Unknown 1 Implanted SCREW 5.5 X 40MM SCREW 5.5 X 40MM [employer] SOFAMOR DANEK [id number] Unknown 1 Implanted SCREW SPINAL 5.5 X 35MM KERNS Screw/[place] SCREW SPINAL 5.5 X 35MM KERNS MED[employer] SOFAMOR DANEK [id number] Unknown 1 Implanted SCREW SPINAL 5.5 X 35MM KERNS Screw/[place] SCREW SPINAL 5.5 X 35MM KERNS [employer] SOFAMOR DANEK [id number] Unknown 1 Implanted SCREW 5.5 X 40MM SCREW 5.5 X 40MM [employer] SOFAMOR DANEK [id number] Unknown 1 Implanted MEDTRONIC SOFAMOR DANEK MEDTRONIC 13PG Unknown 1 Implanted ТАТЬЯНА, DBF 6CC [id number] Blood Bank Misc. ТАТЬЯНА, DBF 6CC [id number] [employer] SPINAL AND BIOLOGICS [id number] Unknown 1 Implanted INFUSE BMP LARGE II KIT [id number] Bone Graft INFUSE BMP LARGE II KIT [id number] MEDTRONIC [id number] Unknown 1 Implanted ALMAS SPINAL 5.5 STRAIG TITANIUM Almas ALMAS SPINAL 5.5 STRAIG TITANIUM [employer] SOFAMOR DANEK Unknown 2Implanted 5.5 6.0MM BREAK OFF TI SET SCREW 5.5 6.0MM BREAK OFF TI SET SCREW [employer] SOFAMOR DANEK Unknown 16 Implanted CROSSLINK 5.5 SMALL 10-42MM Screw/Glenwood CROSSLINK 5.5 SMALL 10-42MM [employer] SOFAMOR DANEK Unknown 2 Implanted MASTERGRAFT 36CM X 43CM [id number] Blood Bank Misc. MASTERGRAFT 36CM X 43CM [id number] MEDTRONIC [id number] 1 Implanted BALLAST MEDTRONIC Unknown 2 Implanted CONNECTOR 5/6-6.0 TOP LAT 70 Connector CONNECTOR 5/6-6.0 TOP LAT 70 [employer]TR[employer]IC SOFAMOR DANEK Unknown2 Implanted Intraoperative Findings: P67-A2TX posterior segmental fusion with deformity correction and left insertion L5-S1 PLIF. Infection Present at Time of Surgery: No evidence of infection present Clean. EBL: 2778 ml * No specimens in log * Complications: None. Justus Fisher MD 02/10/2024 18:48 documented in this encounter Plan of Treatment Upcoming Encounters Date Type Department Care Team (Late st Contact Info) Description 03/28/2024 1:00 PM CDT [facility] [address] [place] [phone] Navi Verduzco PA-C [address] [place] [phone] 1, Isd-Cymraes [address] [place] [phone] Scheduled Discharge Disposition: Discharged to home or self care (routine discharge) 03/28/2024 2:00 PM CDT [facility] Ecologist Technician [address] [place] [phone] OnstaMarina shen, MACHINE IRONER [address] [place] [phone] 1, Isd-Cymraes [address] [place] [phone] Scheduled Discharge Disposition: Discharged to home or self care (routine discharge) 04/01/2024 11:30 AM CDT [facility]ointment [facility] Physical Therapy [address] [place] [phone] Chandler Zuniga, DO [address] [place] [address] Nikki Delong, PT [address] [place] [phone] 1, Isd-Cymraes [address] [place] [phone] Scheduled Discharge Disposition: Discharged to home or self care (routine discharge) 04/05/2024 1:00 PM CDT [facility]ointment [facility] Physical [facility] [address] [place] [phone] Chandler Zuniga, DO [address] [place] [address] Nikki Delong, PT [address] [place] [address] 1, Isd-Cymraes [address] [place] [address] Scheduled Discharge Disposition: Discharged to home or self care (routine discharge) 04/11/2024 11:00 AM CDT [facility]ointment [facility] Physical Therapy [address] [address] Chandler Zuniga, DO [address] [address] Nikki Delong, PT [address] [place] [address] 1, Isd-Cymraes [address] [place] [phone] Scheduled Discharge Disposition: Discharged to home or self care (routine discharge) documented as of this encounter Procedures Procedure Name Priority Date/Time Associated Diagnosis Comments POC GLUCOSE Routine 02/15/2024 11:21 AM CDT POC GLUCOSE Routine 02/15/2024 6:27 AM CDT TC LAB BLOOD DRAW BY VENIPUNCTURE Routine 02/15/2024 5:46 AM CDT XR SPINE THORACIC 2 VW UPRIGHT Routine 02/14/2024 9:57 PM CDT XR SPINE LUMBAR 2/3 VW UPRIGHT Routine 02/14/2024 9:54 PM CDT PC LAB CBC/PLT Routine 02/14/2024 5:50 AM CDT EXTRA TUBE - LIGHT GREEN Routine 02/13/2024 6:48 AM CDT TC LAB BLOOD DRAW BY VENIPUNCTURE Routine 02/13/2024 6:17 AM CDT PANEL BASIC METABOLIC (BMP) Timed 02/12/2024 8:27 AM CDT PC LAB CBC/PLT Timed 02/12/2024 8:27 AM CDT HEMOGLOBIN STAT 02/11/2024 8:42 PM CDT RED BLOOD CELLS LEUKOCYTE REDUCED ADULT (BLOOD ADMIN) Routine 02/11/2024 5:10 PM CDT PANEL BASIC METABOLIC (BMP) Timed 02/11/2024 6:13 AM CDT PC LAB CBC/PLT Timed 02/11/2024 6:13 AM CDT POC GLUCOSE Routine 02/10/2024 11:46 PM CDT PANEL BASIC METABOLIC (BMP) Timed 02/10/2024 9:15 PM CDT PC LAB CBC/PLT Timed 02/10/2024 9:15 PM CDT POC GLUCOSE Routine 02/10/2024 6:47 PM CDT PROTHROMBIN (PT) & INR STAT 6:20 PM CDT PC LAB CBC/PLT STAT 02/10/2024 6:20 PM CDT XR SPINE LUMBAR 1 VIEW STAT 4 5:35 PM CDT XR SPINE LUMBAR 1 VIEW STAT 4 5:35 PM CDT CRYOPRECIPITATE ADULT (BLOOD ADMIN) Routine 02/10/2024 4:56 PM CDT PLATELETS ADULT (BLOOD PRODUCT) (BLOOD ADMIN) Routine 02/10/2024 4:48 PM CDT FRESH FROZEN PLASMA ADULT (BLOOD ADMIN) Routine 02/10/2024 4:45 PM CDT POC CG8 ART Routine 02/10/2024 4:34 PM CDT POC HEMOGLOBIN(AUTOMATED) Routine 02/10/2024 4:33 PM CDT PROTHROMBIN (PT) & INR Routine 4:13 PM CDT FIBRINOGEN Routine 02/10/2024 4:13 PM CDT PC LAB CBC/PLT Routine 02/10/2024 4:13 PM CDT PC LAB PTT Routine 02/10/2024 4:13 PM CDT RED BLOOD CELLS LEUKOCYTE REDUCED ADULT (BLOOD ADMIN) Routine 02/10/2024 4:00 PM CDT POC CG8 ART Routine 02/10/2024 3:19 PM CDT POC HEMOGLOBIN(AUTOMATED) Routine 02/10/2024 3:17 PM CDT RED BLOOD CELLS LEUKOCYTE REDUCED ADULT (BLOOD ADMIN) STAT 02/10/2024 2:00 PM CDT POC HEMOGLOBIN(AUTOMATED) Routine 02/10/2024 1:54 PM CDT POC HEMOGLOBIN(AUTOMATED) Routine 02/10/2024 12:49 PM CDT XR O ARM 0-1 HR Routine 02/10/2024 12:25 PM CDT XR SPINE LUMBAR 2/3V AP/LAT/L5* Routine 02/10/2024 12:25 PM CDT XR O ARM 0-1 HR Routine 02/10/2024 9:35 AM CDT XR SPINE LUMBAR 2/3V AP/LAT/L5* Routine 02/10/2024 9:35 AM CDT SPINAL FUSION POST LUMBAR/THORACIC [id number] Semi-Urgent (< 2 wks) 02/10/2024 7:25 AM CDT Scoliosis of lumbar region due to degenerative disease of spine in adult Case Notes BMP APPROVED POC GLUCOSE Routine 02/10/2024 6:16 AM CDT PANEL BASIC METABOLIC (BMP) STAT 02/10/2024 6:15 AM CDT PC LAB CBC/PLT STAT 02/10/2024 6:15 AM CDT PC ANTIBODY SCREEN,RBC,EACH SERUM TECHNIQUE Routine 02/10/2024 6:15 AM CDT TC LAB ABO TYPE GEL Routine 02/10/2024 6 :15 AM CDT documented in this encounter Results * (ABNORMAL) POC GLUCOSE (02/15/2024 11:21 AM CDT) POC Glucose 124(H) 70 - 100 mg/dL [facility] - POINT OF CARE Blood 02/15/2024 11:2 1 AM CDT Tushar Antoine MD LABORATORY [facility] POINT OF [address] [address], * (ABNORMAL) POC GLUCOSE (02/15/2024 6:27 AM CDT) POC Glucose 105(H) 70 - 100 mg/dL [facility] POINT OF CARE Blood 02/15/2024 6:27 AM CDT Tushar Antoine MD LABORATORY [facility] POINT OF CARE [address] [place] [phone], * (ABNORMAL) CBC WITH PLATELET (02/15/2024 5:46 AM CDT) WBC 7.81 4.00 - 10.00 k/cmm [facility] RBC 2.80(L) 3.90 - 5.20 m/cmm [facility] Hgb 8.3(L) 11.5 - 15.7 g/dL [facility] Hematocrit 25.7(L) 34.0 - 45.0 % [facility] MCV 91.8 80.0 - 100.0 fL [facility] MCH 29.6 25.0 - 32.0 pg [facility] MCHC 32.3 31.0 - 36.0 g/dL [facility] RDW 15.3(H) 11.5 - 14.5 % [facility] Plt 162 150 - 400 k/cmm [facility] MPV 9.3 6.5 - 12.5 fL [facility] NRBC 0.4(H) 0.0 - 0.0 /100WBC [facility] Blood 02/15/2024 5:46 AM CDT 02/15/2024 5:54 AM CDT Tushar Antoine MD LABORATORY Performing Organization Address City/State/[facility] Co de Phone Number [facility] [address] [address] * XR SPINE THORACIC 2 VW UPRIGHT [...] Rojo Tushar Antoine MD RAD XRAY * XR SPINE LUMBAR 2/3 VW UPRIGHT (02/14/2024 9:54 PM CDT) Anatomical Region Laterality Modality Lumbar Spine Computed Radiogr aphy 02/14/2024 10:4 2 PM CDT Impressions 02/14/2024 10:44 PM CDT Impression: Stable extensive postsurgical changes as described above. Hardware appears intact. Alignment is stable. Reading Radiologist: Arianna Rojo Narrative 02/14/2024 10:44 PM CDT Technique: XR SPINE LUMBAR 2/3 VW UPRIGHT Indication: repeat after TLSO ?? Comparison: 02/10/2024 Findings: Extensive postsurgical changes of decompressive laminectomy and posterolateral fusion of the lumbar spine with surgical hardware extending from T12 into the S1 vertebra and across the bilateral sacroiliac joints. Mild levocurvature of the lumbar spine. Vertebral body alignment is stable. Facet hypertrophic changes and posterior fusion bone grafts in the mid to lower lumbar spine. The hardware appears intact. Interposition disc spacer at L5-S1. Procedure Note Arianna Rojo MD - 02/14/2024 Technique: XR SPINE LUMBAR 2/3 VW UPRIGHT Indication: repeat after TLSO Comparison: 02/10/2024 Findings: Extensive postsurgical changes of decompressive laminectomy andposterolateral fusion of the lumbar spine with surgical hardware extendingfrom T12 into the S1 vertebra and across the bilateral sacroiliac joints.Mild levocurvature of the lumbar spine. Vertebral body alignment isstable. Facet hypertrophic changes and posterior fusion bone grafts in themid to lower lumbar spine. The hardware appears intact. Interposition discspacer at L5-S1. IMPRESSION Impression: Stable extensive postsurgical changes as described above. Hardware appearsintact. Alignment is stable. Reading Radiologist: Arianna Rojo Tushar Antoine MD RAD XRAY * (ABNORMAL) CBC WITH PLATELET (02/14/2024 5:50 AM CDT) WBC 10.75(H) 4.00 - 10.00 k/cmm [facility] RBC 2.98(L) 3.90 - 5.20 m/cmm [facility] Hgb 8.9(L) 11.5 - 15.7 g/dL [facility] Hematocrit 26.8(L) 34.0 - 45.0 % [facility] MCV 89.9 80.0 - 100.0 fL [facility] MCH 29.9 25.0 - 32.0 pg [facility] MCHC 33.2 31.0 - 36.0 g/dL [facility] RDW 15.5(H) 11.5 - 14.5 % [facility] Plt 123(L) 150 - 400 k/cmm [facility] MPV 10.1 6.5 - 12.5 fL [facility] NRBC 0.3(H) 0.0 - 0.0 /100WBC [facility] Blood 02/14/2024 5:50 AM CDT 02/14/2024 5:58 AM CDT Tushar Antoine MD LABORATORY [facility] [address] [address] * EXTRA TUBE - LIGHT GREEN (02/13/2024 6:48 AM CDT) LIGHT GREEN TUBE Stored [facility] Comment:Green tubes ([place] Heparin) are stored in the lab for 3 days from the collection date. Blood 02/13/2024 6:48 AM CDT 02/13/2024 6:48 AM CDT Tushar Antoine MD LABORATORY Performing Organization Address [facility] Co de Phone Number [facility] [address] [address] * (ABNORMAL) CBC WITH PLATELET (02/13/2024 6:17 AM CDT) WBC 12.31(H) 4.00 - 10.00 k/cmm [facility] RBC 2.96(L) 3.90 - 5.20 m/cmm [facility] Hgb 8.8(L) 11.5 - 15.7 g/dL [facility] Hematocrit 26.2(L) 34.0 - 45.0 % [facility] MCV 88.5 80.0 - 100.0 fL [facility] MCH 29.7 25.0 - 32.0 pg [facility] MCHC 33.6 31.0 - 36.0 g/dL [facility] RDW 15.8(H) 11.5 - 14.5 % [facility] Plt 90(L) 150 - 400 k/cmm [facility] MPV 9.8 6.5 - 12.5 fL [facility] NRBC 0.2(H) 0.0 - 0.0 /100WBC [facility] Blood 02/13/2024 6:17 AM CDT 02/13/2024 6:27 AM CDT Tushar Antoine MD LABORATORY Performing Organization Address [facility] Co de Phone Number [facility] [address] [address] * (ABNORMAL) CBC WITH PLATELET (02/12/2024 8:27 AM CDT) WBC 12.49(H) 4.00 - 10.00 k/cmm [facility] RBC 3.04(L) 3.90 - 5.20 m/cmm [facility] Hgb 9.0(L) 11.5 - 15.7 g/dL [facility] Hematocrit 26.8(L) 34.0 - 45.0 % [facility] [facility] MCV 88.2 80.0 - 100.0 fL [facility] MCH 29.6 25.0 - 32.0 pg [facility] MCHC 33.6 31.0 - 36.0 g/dL [facility] RDW 15.9(H) 11.5 - 14.5 % [facility] Plt 81(L) 150 - 400 k/cmm [facility] MPV 9.8 6.5 - 12.5 fL [facility] NRBC 0.5(H) 0.0 - 0.0 /100WBC [facility] Blood 02/12/2024 8:27 AM CDT 02/12/2024 8:34 AM CDT Tushar Antoine MD LABORATORY [facility] [address] [address] * (ABNORMAL) PANEL BASIC METABOLIC (BMP) (02/12/2024 8:27 AM CDT) AnGap 5(L) 8 - 16 mEq/L [facility] Calcium 7.6(L) 8.8 - 10.2 mg/dL [facility] Chloride 107 92 - 108 mEq/L [facility] CO2 28 22 - 30 mEq/L [facility] Glucose 108(H) 70 - 100 mg/dL [facility] Creatinine 0.43(L) 0.50 - 1.00 mg/dL [facility] Sodium 140 135 - 148 mEq/L [facility] Potassium 3.7 3.5 - 5.3 mEq/L [facility] eGFR (2020 CKD-EPI) 103 >=60 ml/min/1.7 3m2 [facility] Comment: The estimated glomerular filtration rate (eGFR) was calculated using the CKD-EPI 2020 creatinine equation, which does not include race as a factor. This equation is validated in individuals 18 years of age and older, and eGFR is normalized to a body surface area of 1.73m^2. BUN 12 8 - 23 mg/dL [facility] Blood 02/12/2024 8:27 AM CDT 02/12/2024 8:34 AM CDT Tushar Antoine MD LABORATORY Performing Organization Address [facility]/ZIP Co de Phone Number [facility] [address] [address] * (ABNORMAL) HEMOGLOBIN (02/11/2024 8:42 PM CDT) Hgb 8.9(L) 11.5 - 15.7 g/dL [facility] Blood 02/11/2024 8:42 PM CDT 02/11/2024 8:48 PM CDT Narrative [facility] - 02/11/2024 8:55 PM CDT After transfusion Tushar Antoine MD LABORATORY Performing Organization Address [facility] Co de Phone Number [facility] [address] [address] * RED BLOOD CELLS LEUKOCYTE REDUCED ADULT (BLOOD ADMIN) (02/11/2024 5:10 PM CDT) Unit Number [id number] [facility] Product Code [id number] [facility] Blood Expiration Date [id number] [facility] Blood Type 6200 [facility] Blood Type (TEXT) APOS [facility] Other 02/11/2024 5:10 PM CDT 02/11/2024 11:09 AM CDT Tushar Antoine MD BLOOD BANK DANNY LOVE (BLOOD ADMIN) Performing Organization Address [facility]/ZIP Co de Phone Number [facility] [address] [address] * (ABNORMAL) PANEL BASIC METABOLIC (BMP) (02/11/2024 6:13 AM CDT) CO2 26 22 - 30 mEq/L [facility] Glucose 156(H) 70 - 100 mg/dL [facility] BUN 23 8 - 23 mg/dL [facility] Creatinine 0.90 0.50 - 1.00 mg/dL [facility] Calcium 8.0(L) 8.8 - 10.2 mg/dL [facility] Sodium 145 135 - 148 mEq/L [facility] Potassium 4.0 3.5 - 5.3 mEq/L [facility] Chloride 108 92 - 108 mEq/L [facility] eGFR (2020 CKD-EPI) 68 >=60 ml/min/1.7 3m2 [facility] Comment: The estimated glomerular filtration rate (eGFR) was calculated using the CKD-EPI 2020 creatinine equation, which does not include race as a factor. This equation is validated in individuals 18 years of age and older, and eGFR is normalized to a body surface area of 1.73m^2. AnGap 11 8 - 16 mEq/L [facility] Blood 02/11/2024 6:13 AM CDT 02/11/2024 6:31 AM CDT Tushar Antoine MD LABORATORY [facility] [address] [address] * (ABNORMAL) CBC WITH PLATELET (02/11/2024 6:13 AM CDT) WBC 7.61 4.00 - 10.00 k/cmm [facility] RBC 2.06(L) 3.90 - 5.20 m/cmm [facility] Hgb 6.2(AA) 11.5 - 15.7 g/dL [facility] Hematocrit 18.3(L) 34.0 - 45.0 % [facility] MCV 88.8 80.0 - 100.0 fL [facility] MCH 30.1 25.0 - 32.0 pg [facility] MCHC 33.9 31.0 - 36.0 g/dL [facility] RDW 17.3(H) 11.5 - 14.5 % [facility] Plt 111(L) 150 - 400 k/cmm [facility] MPV 9.9 6.5 - 12.5 fL [facility] Acanthocyte Slight [facility] Stippling Slight [facility] Blood 02/11/2024 6:13 AM CDT 02/11/2024 6:31 AM CDT Narrative [facility] - 02/11/2024 7:25 AM CDT Critical value for Hemoglobin electronically reported to and acknowledged by Justus Fisher MD in STN 1 at 02/11/2024 06:57:01 CDT by Shannan Birch MLS. Tushar Antoine MD LABORATORY [facility] [address] [place] [address] * (ABNORMAL) POC GLUCOSE (02/10/2024 11:46 PM CDT) POC Glucose 198(H) 70 - 100 mg/dL [facility] Blood 02/10/2024 11:4 6 PM CDT Tushar Antoine MD LABORATORY Performing Organization Address [facility] Co de Phone Number [facility] [address] [place] [address] * (ABNORMAL) PANEL BASIC METABOLIC (BMP) (02/10/2024 9:15 PM CDT) Sodium 144 135 - 148 mEq/L [facility] Potassium 3.8 3.5 - 5.3 mEq/L [facility] Chloride 107 92 - 108 mEq/L [facility] CO2 22 22 - 30 mEq/L [facility] AnGap 15 8 - 16 mEq/L [facility] Glucose 216(H) 70 - 100 mg/dL [facility] BUN 13 8 - 23 mg/dL [facility] Creatinine 0.59 0.50 - 1.00 mg/dL [facility] Calcium 8.6(L) 8.8 - 10.2 mg/dL [facility] eGFR (2020 CKD-EPI) 95 >=60 ml/min/1.7 3m2 [facility] Comment: The estimated glomerular filtration rate (eGFR) was calculated using the CKD-EPI 2020 creatinine equation, which does not include race as a factor. This equation is validated in individuals 18 years of age and older, and eGFR is normalized to a body surface area of 1.73m^2. Blood 02/10/2024 9:15 PM CDT 02/10/2024 9:22 PM CDT Destiny Lopez PA-C LABORATORY Performing Organization Address City/[facility]/ZIP Co de Phone Number [facility] [address] [address] * (ABNORMAL) CBC WITH PLATELET (02/10/2024 9:15 PM CDT) WBC 7.38 4.00 - 10.00 k/cmm [facility] RBC 2.60(L) 3.90 - 5.20 m/cmm [facility] Hgb 7.5(L) 11.5 - 15.7 g/dL [facility] Hematocrit 23.3(L) 34.0 - 45.0 % [facility] MCV 89.6 80.0 - 100.0 fL [facility] MCH 28.8 25.0 - 32.0 pg [facility] MCHC 32.2 31.0 - 36.0 g/dL [facility] RDW 17.0(H) 11.5 - 14.5 % [facility] Plt 126(L) 150 - 400 k/cmm [facility] MPV 9.1 6.5 - 12.5 fL [facility] Blood 02/10/2024 9:15 PM CDT 02/10/2024 9:22 PM CDT Destiny Lopez PA-C LABORATORY Performing Organization Address [facility]/ZIP Co de Phone Number [facility] [address] [address] * (ABNORMAL) POC GLUCOSE (02/10/2024 6:47 PM CDT) POC Glucose 191(H) 70 - 100 mg/dL [facility] Blood 02/10/2024 6:47 PM CDT Tushar Antoine MD LABORATORY [facility] [address] [place] [address], * (ABNORMAL) PROTHROMBIN (PT) & INR (02/10/2024 6:20 PM CDT) PT 16.9(H) 9.0 - 12.5 sec [facility] INR 1.5(H) 0.8 - 1.1 [facility] Comment: Warfarin Therapeutic Range: Standard Intensity: 2.0 - 3.0 High Intensity: 2.5 - 3.5 Blood 02/10/2024 6:20 PM CDT 02/10/2024 7:10 PM CDT Darlene Ray APRN, STAFF [employer] OFFICER LABORATOR Y Performing Organization Address [facility] Co de Phone Number [facility] [address] [address] * (ABNORMAL) CBC WITH PLATELET (02/10/2024 6:20 PM CDT) WBC 6.63 4.00 - 10.00 k/cmm [facility] RBC 2.47(L) 3.90 - 5.20 m/cmm [facility] Hgb 7.4(L) 11.5 - 15.7 g/dL [facility] Hematocrit 22.6(L) 34.0 - 45.0 % [facility] MCV 91.5 80.0 - 100.0 fL [facility] MCH 30.0 25.0 - 32.0 pg [facility] MCHC 32.7 31.0 - 36.0 g/dL [facility] RDW 16.0(H) 11.5 - 14.5 % [facility] Plt 119(L) 150 - 400 k/cmm [facility] MPV 9.2 6.5 - 12.5 fL [facility] Blood 02/10/2024 6:20 PM CDT 02/10/2024 7:10 PM CDT Darlene Ray APRN, STAFF [employer] OFFICER LABORATOR Y Performing Organization Address City/[facility]/ZIP Co de Phone Number [facility] [address] [address] * XR SPINE LUMBAR 1 VIEW (02/10/2024 5:35 PM CDT) Anatomical Region Laterality Modality Lumbar Spine Computed [...] Rojo Tushar Antoine MD RAD XRAY * XR SPINE LUMBAR 1 VIEW (02/10/2024 5:35 PM CDT) Anatomical Region Laterality Modality Lumbar Spine Computed Radiogr aphy 02/10/2024 6:52 PM CDT Impressions 02/10/2024 6:54 PM CDT Impression: New postsurgical changes of decompressive laminectomy and posterior spinal fusion from T12 to the sacrum. Reading Radiologist: Arianna Rojo Narrative 02/10/2024 6:54 PM CDT Technique: XR SPINE LUMBAR 1 VIEW Indication: spinal fusion ?? Comparison: MRI of the lumbar spine performed on 03/27/2023 Findings: New postsurgical changes of decompressive laminectomies and posterior spinal fusion of the thoracolumbar spine is demonstrated. Pedicle screws are seen spanning the lumbar spine from T12 to L5 with additional screws in the sacrum. Bilateral fusion rods. Vertebral body alignment is close to anatomic. Diffuse osteopenia. No hardware fracture. Interposition disc spacer at L5-S1. Procedure Note Arianna Rojo MD - 02/10/2024 Technique: XR SPINE LUMBAR 1 VIEW Indication: spinal fusion Comparison: MRI of the lumbar spine performed on 03/27/2023 Findings: New postsurgical changes of decompressive laminectomies andposterior spinal fusion of the thoracolumbar spine is demonstrated.Pedicle screws are seen spanning the lumbar spine from T12 to L5 withadditional screws in the sacrum. Bilateral fusion rods. Vertebral bodyalignment is close to anatomic. Diffuse osteopenia. No hardware fracture.Interposition disc spacer at L5-S1. IMPRESSION Impression: New postsurgical changes of decompressive laminectomy and posterior spinalfusion from T12 to the sacrum. Reading Radiologist: Arianna Rojo Tushar Antoine MD RAD XRAY * CRYOPRECIPITATE ADULT (BLOOD ADMIN) (02/10/2024 4:56 PM CDT) Unit Number [id number] [facility] Product Code [id number] [facility] Blood Expiration Date [id number] [facility] Blood Type 6200 [facility] Blood Type (TEXT) APOS [facility] CRYO Ready Product Ready [facility] Other 02/10/2024 4:56 PM CDT 02/10/2024 4:47 PM CDT Narrative [facility] - 02/10/2024 4:56 PM CDT 1 unit is equivalent to a pool of 5 whole blood derived cryo. Is a signed informed consent on file: Yes-on file Reason for transfusion: FIBRINOGEN LESS THAN 100 MG/DL 1 Units Laron Brown MD BLOOD BANK ORDERABL ES (BLOOD ADMIN) [facility] [address] [place] [id number] * PLATELETS ADULT (BLOOD PRODUCT) (BLOOD ADMIN) (02/10/2024 4:48 PM CDT) Unit Number [id number] [facility] Product Code [id number] [facility] Blood Expiration Date [id number] [facility] Blood Type 6200 [facility] Blood Type (TEXT) APOS [facility] PLT Ready Product Ready [facility] Other 02/10/2024 4:48 PM CDT 02/10/2024 4:47 PM CDT Narrative [facility] - 02/10/2024 4:49 PM CDT One [...] ORDERABL ES (BLOOD ADMIN) Performing Organization Address [facility] Co de Phone Number [address] [address] * FRESH FROZEN PLASMA ADULT (BLOOD ADMIN) (02/10/2024 4:45 PM CDT) Unit Number [id number] [facility] Product Code [id number] [facility] Blood Expiration Date [id number] [facility] Blood Type 6200 [facility] Blood Type (TEXT) APOS [facility] Other 02/10/2024 4:45 PM CDT 02/10/2024 4:43 PM CDT Laron Brown MD BLOOD BANK ORDERABL ES (BLOOD ADMIN) Performing Organization Address [facility] Co de Phone Number [address] [address] * (ABNORMAL) POC CG8 ART (02/10/2024 4:34 PM CDT) Sodium 145 135 - 148 mEq/L [facility] Potassium 3.5 3.5 - 5.3 mEq/L [facility] Glucose 151(H) 70 - 100 mg/dL [facility] ICA, Measured 4.9 4.4 - 5.2 mg/dL [facility] PH Art 7.33(L) 7.35 - 7.45 [facility] PCO2 Art 35 35 - 45 mmHg [facility] PO2 Art 181(H) 75 - 85 mmHg [facility] TCO2 Art 19(L) 22 - 30 mEq/L [facility] Bicarb Art 18(L) 22 - 26 mEq/L [facility] Base Exc Art -8.0 -10.0 - 2.0 mEq/L [facility] O2 Sat Art 100(H) 96 - 99 % [facility] Blood 02/10/2024 4:34 PM CDT Tushar Antoine MD LABORATORY Performing Organization Address City/[facility]/ZIP Co de Phone Number [facility] [address] [place] [address], [place] * (ABNORMAL) POC HEMOGLOBIN(AUTOMATED) (02/10/2024 4:33 PM CDT) Hgb 8.9(L) 11.5 - 15.7 g/dL [facility] Blood 02/10/2024 4:33 PM CDT Tushar Antoine MD LABORATORY Performing Organization Address City/[facility] Co de Phone Number [facility] [address] [place] [address], [place] * (ABNORMAL) PROTHROMBIN (PT) & INR (02/10/2024 4:13 PM CDT) PT 19.6(H) 9.0 - 12.5 sec [facility] INR 1.7(H) 0.8 - 1.1 [facility] Comment: Warfarin Therapeutic Range: Standard Intensity: 2.0 - 3.0 High Intensity: 2.5 - 3.5 Blood 02/10/2024 4:13 PM CDT 02/10/2024 4:13 PM CDT Brant Santoro MD LABORATORY Performing Organization Address [facility] Co de Phone Number [facility] [address] [address] * (ABNORMAL) PTT (APTT) (02/10/2024 4:13 PM CDT) APTT 44.5(H) 25.0 - 37.0 sec [facility] Blood 02/10/2024 4:13 PM CDT 02/10/2024 4:13 PM CDT Brant Santoro MD LABORATORY Performing Organization Address [facility] Co de Phone Number [facility] [address] [address] * (ABNORMAL) FIBRINOGEN (02/10/2024 4:13 PM CDT) Pathologist [facility] Fibrinogen 80(AA) 200 - 400 mg/dL [facility] Blood 02/10/2024 4:13 PM CDT 02/10/2024 4:13 PM CDT Narrative [facility] - 02/10/2024 4:39 PM CDT Critical value for fibrinogen called to and read back by Jarett Singh Nurse [place] in OR at 02/10/2024 16:39:30 CDT by Lani Esquivel MLS. Brant Santoro MD LABORATORY Performing Organization Address [facility] Co de Phone Number [facility] [address] [address] * (ABNORMAL) CBC WITH PLATELET (02/10/2024 4:13 PM CDT) WBC 8.50 4.00 - 10.00 k/cmm [facility] RBC 3.18(L) 3.90 - 5.20 m/cmm [facility] Hgb 9.4(L) 11.5 - 15.7 g/dL [facility] Hematocrit 28.2(L) 34.0 - 45.0 % [facility] MCV 88.7 80.0 - 100.0 fL [facility] MCH 29.6 25.0 - 32.0 pg [facility] MCHC 33.3 31.0 - 36.0 g/dL [facility] RDW 15.7(H) 11.5 - 14.5 % [facility] Plt 60(L) 150 - 400 k/cmm [facility] MPV 9.2 6.5 - 12.5 fL [facility] Blood 02/10/2024 4:13 PM CDT 02/10/2024 4:13 PM CDT Brant Santoro MD LABORATORY [facility] [address] [address] * RED BLOOD CELLS LEUKOCYTE REDUCED ADULT (BLOOD ADMIN) (02/10/2024 4:00 PM CDT) Unit Number [id number] [facility] Product Code [id number] [facility] Blood Expiration Date [id number] [facility] Blood Type 6200 [facility] Blood Type (TEXT) APOS [facility] Other 02/10/2024 4:00 PM CDT 02/10/2024 2:04 PM CDT Elizabeth Jensen MD BLOOD BANK ORDERAB LES (BLOOD ADMIN) Performing Organization Address City/[facility]/ZIP Co de Phone Number [address] [address] * (ABNORMAL) POC CG8 ART (02/10/2024 3:19 PM CDT) Sodium 142 135 - 148 mEq/L [facility] Potassium 3.8 3.5 - 5.3 mEq/L [facility] Glucose 178(H) 70 - 100 mg/dL [facility] ICA, Measured 4.9 4.4 - 5.2 mg/dL [facility] PH Art 7.33(L) 7.35 - 7.45 [facility] PCO2 Art 42 35 - 45 mmHg [facility] PO2 Art 215(H) 75 - 85 mmHg [facility] TCO2 Art 24 22 - 30 mEq/L [facility] Bicarb Art 22 22 - 26 mEq/L [facility] Base Exc Art -3.0 -10.0 - 2.0 mEq/L [facility] O2 Sat Art 100(H) 96 - 99 % [facility] Blood 02/10/2024 3:19 PM CDT Tushar Antoine MD LABORATORY Performing Organization Address [facility]/ZIP Co de Phone Number [facility] [address] [place] [address], * POC HEMOGLOBIN(AUTOMATED) (02/10/2024 3:17 PM CDT) Hgb 11.5 11.5 - 15.7 g/dL [facility] Blood 02/10/2024 3:17 PM CDT Tushar Antoine MD LABORATORY Performing Organization Address [facility] Co de Phone Number [facility] [place] [address], * RED BLOOD CELLS LEUKOCYTE REDUCED ADULT (BLOOD ADMIN) (02/10/2024 2:00 PM CDT) Unit Number [id number] [facility] Product Code [id number] [facility] Blood Expiration Date [id number] [facility] Blood Type 6200 [facility] Blood Type (TEXT) APOS [facility] Other 02/10/2024 2:00 PM CDT 02/10/2024 8:33 AM CDT Elizabeth Jensen MD BLOOD BANK ORDERAB LES (BLOOD ADMIN) Performing Organization Address City/[facility]/ZIP Co de Phone Number [facility] [place] [address] * (ABNORMAL) POC HEMOGLOBIN(AUTOMATED) (02/10/2024 1:54 PM CDT) Hgb 6.7(LL) 11.5 - 15.7 g/dL [facility] Blood 02/10/2024 1:54 PM CDT Tushar Antoine MD LABORATORY Performing Organization Address [facility] Co de Phone Number [facility] [address] [place] [address], [place] * (ABNORMAL) POC HEMOGLOBIN(AUTOMATED) (02/10/2024 12:49 PM CDT) Hgb 9.2(L) 11.5 - 15.7 g/dL [facility] Blood 02/10/2024 12:4 9 PM CDT Tushar Antoine MD LABORATORY Performing Organization Address [facility] de Phone Number [facility] [address] [place] [address], [place] * XR O ARM 0-1 HR (02/10/2024 12:25 PM CDT) Tushar Antoine MD RAD FLUORO * XR SPINE LUMBAR 2/3V AP/LAT/L5* (02/10/2024 12:25 PM CDT) Anatomical Region Laterality Modality Lumbar Spine Radio Fluoroscop y 02/10/2024 1:48 PM CDT Impressions 02/10/2024 3:00 PM CDT Impression: 1. Spot films and fluoroscopy time provided to the OR. 2. Computer-assisted surgical navigation was performed. I have personally reviewed the image(s) and initial interpretation, and I agree with the findings as documented by the resident/fellow. Reading Radiologist: Armando Drummond Reading Resident: Yanick Barron Narrative 02/10/2024 3:00 PM CDT Technique: XR SPINE [...] show postsurgical changes of posterior spinal fusion [id number]. No radiologist was present. Computer assisted surgical navigation was performed. IMPRESSION Impression: 1. Spot films and fluoroscopy time provided to the OR. 2. Computer-assisted surgical navigation was performed. I have personally reviewed the image(s) and initial interpretation, and Iagree with the findings as documented by the resident/fellow. Reading Radiologist: Armando Drummond Reading Resident: Yanick Barron Tushar Antoine MD RAD XRAY * XR O ARM 0-1 HR (02/10/2024 9:35 AM CDT) Tushar Antoine MD RAD FLUORO * XR SPINE LUMBAR 2/3V AP/LAT/L5* (02/10/2024 9:35 AM CDT) Anatomical Region Laterality Modality Lumbar Spine Radio Fluoroscop y 02/10/2024 10:4 2 AM CDT Impressions 02/10/2024 10:58 AM CDT Impression: 1. Spot films and fluoroscopy time provided to the OR. 2. Computer-assisted surgical navigation was performed. I have personally reviewed the image(s) and initial interpretation, and I agree with the findings as documented by the resident/fellow. Reading Radiologist: Armando Drummond Reading Resident: Yanick Barron 02/10/2024 10:58 AM CDT Technique: XR SPINE LUMBAR 2/3V AP/LAT/L5* Indication:Stealth for T11-S1 posterior spinal fusion. Comparison:AP and lateral scoliosis images dated 09/01/2023. Fluoroscopy time:3.6 seconds Dose:9.98 mGy Multi-Plane Imaging CTDI: 52.35 mGy DLP: 3163.8 (mGycm) Findings: Fluoroscopy time and spot-film imaging was provided to the OR. Spot images show multiplane imaging for placement of Stealth marker clamps. Clips overlie the low thoracic spine, upper lumbar and L5-S1. No radiologist was present. Computer assisted surgical navigation was performed. Procedure Note Armando Drummond DO - 02/10/2024 Technique: XR SPINE LUMBAR 2/3V AP/LAT/L5* Indication:Stealth for T11-S1 posterior spinal fusion. Comparison:AP and lateral scoliosis images dated 09/01/2023. Fluoroscopy time:3.6 seconds Dose:9.98 mGy Multi-Plane Imaging CTDI: 52.35 mGy DLP: 3163.8 (mGycm) Findings: Fluoroscopy time and spot-film imaging was provided to the OR.Spot images show multiplane imaging for placement of Stealth markerclamps. Clips overlie the low thoracic spine, upper lumbar and L5-S1. Noradiologist was present. Computer assisted surgical navigation was performed. IMPRESSION Impression: 1. Spot films and fluoroscopy time provided to the OR. 2. Computer-assisted surgical navigation was performed. I have personally reviewed the image(s) and initial interpretation, and Iagree with the findings as documented by the resident/fellow. Reading Radiologist: Armando Drummond Resident: Yanick Barron Tushar Antoine MD RAD XRAY * (ABNORMAL) POC GLUCOSE (02/10/2024 6:16 AM CDT) POC Glucose 107(H) 70 - 100 mg/dL [facility] Blood 02/10/2024 6:16 AM CDT Tushar Antoine MD LABORATORY Performing Organization Address City/[facility]/ZIP Co de Phone Number [facility] [address] [place] [address], * ANTIBODY SCREEN (02/10/2024 6:15 AM CDT) Pathologist [facility] Kary Screen Negative [facility] Blood 02/10/2024 6:15 AM CDT 02/10/2024 6:34 AM CDT Lucho Morin PA-C LAB TRANSFUSI ON SERVICES Performing Organization Address [facility] Co de Phone Number [facility] [place] [address] * BLOOD TYPING-ABO/RH (02/10/2024 6:15 AM CDT) Pathologist [facility] ABORHG A POS [facility] Blood 02/10/2024 6:15 AM CDT 02/10/2024 6:34 AM CDT Lucho Piotr Morin PA-C LAB TRANSFUSI ON SERVICES Performing Organization Address [facility] Co de Phone Number [facility] [place] [address] * (ABNORMAL) PANEL BASIC METABOLIC (BMP) (02/10/2024 6:15 AM CDT) Pathologist [facility] Sodium 140 135 - 148 mEq/L [facility] Potassium 3.8 3.5 - 5.3 mEq/L [facility] Chloride 105 92 - 108 mEq/L [facility] CO2 26 22 - 30 mEq/L [facility] AnGap 9 8 - 16 mEq/L [facility] Glucose 95 70 - 100 mg/dL [facility] BUN 15 8 - 23 mg/dL [facility] Creatinine 0.48(L) 0.50 - 1.00 mg/dL [facility] Calcium 9.6 8.8 - 10.2 mg/dL [facility] eGFR (2020 CKD-EPI) 100 >=60 ml/min/1.7 3m2 [facility] Comment: The estimated glomerular filtration rate (eGFR) was calculated using the CKD-EPI 2020 creatinine equation, which does not include race as a factor. This equation is validated in individuals 18 years of age and older, and eGFR is normalized to a body surface area of 1.73m^2. Blood 02/10/2024 6:15 AM CDT 02/10/2024 8:11 AM CDT Elizabeth Jensen MD LABORATORY Performing Organization Address City/[facility]/ZIP Co de Phone Number [facility] [address] [address] * (ABNORMAL) CBC WITH PLATELET (02/10/2024 6:15 AM CDT) WBC 6.74 4.00 - 10.00 k/cmm [facility] RBC 4.41 3.90 - 5.20 m/cmm [facility] Hgb 13.4 11.5 - 15.7 g/dL [facility] Hematocrit 40.2 34.0 - 45.0 % [facility] MCV 91.2 80.0 - 100.0 fL [facility] MCH 30.4 25.0 - 32.0 pg [facility] MCHC 33.3 31.0 - 36.0 g/dL [facility] RDW 14.6(H) 11.5 - 14.5 % [facility] Plt 290 150 - 400 k/cmm [facility] MPV 9.9 6.5 - 12.5 fL [facility] Blood 02/10/2024 6:15 AM CDT 02/10/2024 8:11 AM CDT Elizabeth Jensen MD LABORATORY [facility] [address] [address] documented in this encounter Visit Diagnoses Diagnosis Scoliosis of lumbar spine, unspecified scoliosis type- Primary Scoliosis of lumbar spine, unspecified scoliosis type documented in this encounter Administered Medications Inactive Administered Medications - up to 3 most recent administrations Medication Order MAR Action Action Date Dose Rate Site acetaminophen (TYLENOL) tablet 650 mg 650 mg, Oral, Q4H PRN, Starting on Thu02/10/24 at 2104, Until Thu02/17/24 at 1334, Mild Pain (Use First) Given 02/17/2024 8:03 AM CDT 650 mg Given 02/16/2024 10:17 PM CDT 650 mg Given 02/16/2024 6:34 AM CDT 650 mg amLODIPine (NORVASC) tablet 5 mg 5 mg, Oral, DAILY, First dose on Brittany 02/11/24 at 0800, Until Discontinued Given 02/11/2024 8:39 AM CDT 5 mg ceFAZolin (ANCEF) IVPB 2 g 2 g, Indication (Select One): Prophylaxis - Surgical, Intravenous, Q 8H, First dose on Brittany 02/11/24 at 0000, Until Discontinued New Bag 02/16/2024 6:34 AM CDT 2 g 200 mL /hr New Bag 02/15/2024 10:05 PM CDT 2 g 200 mL/hr New Bag 02/15/2024 2:47 PM CDT 2 g 200 mL/hr cepacol 1 lozenge mouth/throat 1 lozenge, Oral, Q2H PRN, Starting on Thu02/10/24 at 2104, Until Thu02/17/24 at 1334, Sore Throat Given 02/12/2024 5:39 AM CDT 1 lozenge Given 02/11/2024 8:46 PM CDT 1 lozenge DC MED REC REVIEW BY PHARMACY Discharge Date: 02/17/2024, Discharge Location: Subacute Rehab, Anticipated Discharge Time: Before 10 am, Discharge Medication Orders: DC Med Orders Final, Does not apply, PROTOCOL, Starting on Thu02/16/24 at 1039, Until Thu02/17/24 at 1334 enoxaparin (LOVENOX) 30 mg/0.3 mL injection 30 mg 30 mg, Subcutaneous, DAILY, First dose on Thu02/14/24 at 0800, Until Discontinued Given 02/17/2024 8:00 AM CDT 30 mg Abdominal Tissue Given 02/16/2024 8:26 AM CDT 30 mg Ab dominal Tissue Given 02/15/2024 8:59 AM CDT 30 mg Ab dominal Tissue HYDROmorphone (DILAUDID) 1 mg/mL CADD Basal Rate: 0.1 mg/hr, Demand Dose: 0.2 mg, Lockout Interval: 15 Minutes, Intravenous, PRINTING ESTIMATOR AND CONTINUOUS, Starting on Thu02/10/24 at 2105, Until Thu02/13/24 at 0848 Infusing 02/13/2024 7:30 AM CDT Infusing 02/13/2024 5:00 AM CDT Infusing 02/12/2024 8:00 AM CDT HYDROmorphone PF (DILAUDID) 1 mg/mL injection 0.4 mg 0.4 mg, IV Push, PACU PRN Q5MIN, 5 doses, Starting on Thu02/10/24 at 1803, Until Thu02/10/24 at 2031, Severe Pain (Use First) Given 02/10/2024 7:49 PM CDT 0.2 mg NaCl 0.9% infusion at 100 mL/hr, Intravenous, CONTINUOUS, Starting on Thu02/10/24 at 2105, Until Thu02/11/24 at 0947 New Bag 02/10/2024 9:48 PM CDT 100 mL/hr NaCl 0.9% infusion at 100 mL/hr, Intravenous, CONTINUOUS, Starting on Thu02/11/24 at 1100, Until Thu02/12/24 at 0742 Infusing 02/12/2024 11:00 AM CDT 100 mL/hr Infusing 02/12/2024 8:00 AM CDT 100 mL/hr New Bag 02/12/2024 6:13 AM CDT 100 mL/hr ondansetron (ZOFRAN) 4 mg/2 mL injection 4 mg 4 mg, IV Push, Q6H PRN, Starting on Thu02/10/24 at 2104, Until Thu02/17/24 at 1334, Nausea/Vomiting (Use First), Use for patients with vomiting, NPO status, or patient refuses oral dose Given 02/12/2024 5:30 AM CDT 4 mg Given 02/11/2024 1:41 AM CDT 4 mg oxyCODONE (ROXICODONE) tablet 5-10 mg 5-10 mg, Oral, Q4H PRN, Starting on Thu02/10/24 at 2104, Until Thu02/17/24 at 1334, Moderate Pain (Use Second) Given 02/17/2024 8:03 AM CDT 10 mg Given 02/16/2024 10:16 PM CDT 10 mg Given 02/16/2024 3:02 PM CDT 10 mg polyethylene glycol 3350 (MIRALAX;GLYCOLAX) packet 17 g 17 g, Oral, DAILY, First dose on Thu02/11/24 at 0800, Until Discontinued Given 02/17/2024 8:00 AM CDT 17 g Given 02/16/2024 8:26 AM CDT 17 g Given 02/15/2024 8:59 AM CDT 17 g sennosides (SENOKOT) tablet 8.6 mg 8.6 mg, Oral, BID, First dose on Thu02/10/24 at 2105, Until Discontinued Given 02/14/2024 8:43 AM CDT 8.6 mg Given 02/13/2024 10:16 PM CDT 8.6 mg Given 02/13/2024 11:22 AM CDT 8.6 mg sennosides (SENOKOT) tablet 8.6 mg 8.6 mg, Oral, BID, First dose (after last modification) on Thu02/16/24 at 0800, Until Discontinued Given 02/17/2024 8:00 AM CDT 8.6 mg Given 02/16/2024 10:17 PM CDT 8.6 mg Given 02/16/2024 8:26 AM CDT 8.6 mg documented in this encounter Active and Recently Administered Medications Times are shown in CDT. Scheduled Medication Order 02/15/2024 02/16/2024 02/17/2024 ceFAZolin (ANCEF) IVPB 2 g (CANCELED) 2 g, Indication (Select One): Prophylaxis - Surgical, Intravenous, Q 8H, First dose on Thu02/11/24 at 0000, Until Discontinued 0634 (New Bag - Provider: Juana Johns RN)0704 (Infusion completed - Provider: Juana Johns RN)1447 (New Bag - Provider: Lulú Collazo RN)1527 (Infusion completed - Provider: Kate Abraham RN)2205 (New Bag - Provider: Lexi A Myhre, RN)2311 (Infusion completed - Provider: Lexi Luo RN) 0634 (New Bag - Provider: Lexi Luo RN)0720 (Infusion completed - Provider: Lobo Gallardo RN) DC MED REC REVIEW BY PHARMACY(Linked Group 1) Discharge Date: 02/17/2024, Discharge Location: Subacute Rehab, Anticipated Discharge Time: Before 10 am, Discharge Medication Orders: DC Med Orders Final, Does not apply, PROTOCOL, Starting on Thu02/16/24 at 1039, Until Thu02/17/24 at 1334 enoxaparin (LOVENOX) 30 mg/0.3 mL injection 30 mg 30 mg, Subcutaneous, DAILY, First dose on Thu02/14/24 at 0800, Until Discontinued 0859 (Given - Provider: Judy Reyes RN) 0826 (Given - Provider: Lobo Gallardo RN) 0800 (Given - Provider: Kyra Jackson, [place]) polyethylene glycol 3350 (MIRALAX;GLYCOLAX) packet 17 g 17 g, Oral, DAILY, First dose on Thu02/11/24 at 0800, Until Discontinued 0859 (Given - Provider: Judy Reyes RN) 0826 (Given - Provider: Lobo Gallardo, [place]) 0800 (Given - Provider: Kyra Jackson, [place]) sennosides (SENOKOT) tablet 8.6 mg 8.6 mg, Oral, BID, First dose (after last modification) on Thu02/16/24 at 0800, Until Discontinued 08 (Given - Provider: Lobo Gallardo RN)2217 (Given - Provider: Lexi Luo RN) 0800 (Given - Provider: Kyra Jackson, [place]) Continuous Medication Order 02/15/2024 02/16/2024 02/17/2024 NaCl 0.9% infusion at 100 mL/hr, Intravenous, CONTINUOUS, Starting on Thu02/10/24 at 2105, Until Thu02/11/24 at 0947 PRN Medication Order 02/15/2024 02/16/2024 02/17/2024 acetaminophen (TYLENOL) tablet 650 mg 650 mg, Oral, Q4H PRN, Starting on Thu02/10/24 at 2104, Until Thu02/17/24 at 1334, Mild Pain (Use First) 0301 (Given - Provider: Juana Johns, RN)0859 (Given - Provider: Judy Reyes, [place])1622 (Given - Provider: Kate Abraham, [place])2158 (Given - Provider: Lexi Luo, RN) 0634 (Given - Provider: Lexi Luo, RN)2217 (Given - Provider: Lexi Luo, RN) 0803 (Given - Provider: Kyra Jackson RN) bisacodyl (DULCOLAX) suppository 10 mg 10 mg, Rectal, DAILY PRN, Starting on Thu02/10/24 at 2104, Until Thu02/17/24 at 1334, Constipation (Use Second), Give if no stool in greater than 48 hours cepacol 1 lozenge mouth/throat 1 lozenge, Oral, Q2H PRN, Starting on Thu02/10/24 at 2104, Until Thu02/17/24 at 1334, Sore Throat diazePAM (VALIUM) tablet 2 mg 2 mg, Oral, Q4H PRN, Starting on Thu02/10/24 at 2104, Until Thu02/17/24 at 1334, Spasm(s) melatonin tablet 1 mg 1 mg, Oral, BEDTIME PRN, Starting on Thu02/10/24 at 2104, Until Thu02/17/24 at 1334, Sleep naloxone (NARCAN) 0.4 mg/mL injection 0.4 mg 0.4 mg, IV Push, ONE TIME PRN, 1 dose, Starting on Thu02/10/24 at 2104, Until Thu02/17/24 at 1334, Patient difficult to arouse ondansetron (ZOFRAN) 4 mg/2 mL injection 4 mg 4 mg, IV Push, Q6H PRN, Starting on Thu02/10/24 at 2104, Until Thu02/17/24 at 1334, Nausea/Vomiting (Use First), Use for patients with vomiting, NPO status, or patient refuses oral dose ondansetron (ZOFRAN) tablet 4 mg 4 mg, Oral, Q6H PRN, Starting on Thu02/10/24 at 2104, Until Thu02/17/24 at 1334, Nausea/Vomiting (Use First), Use if patient able to tolerate oral dose oxyCODONE (ROXICODONE) tablet 5-10 mg 5-10 mg, Oral, Q4H PRN, Starting on Thu02/10/24 at 2104, Until Thu02/17/24 at 1334, Moderate Pain (Use Second) 0301 (Given - Provider: Juana Johns, RN)1622 (Given - Provider: Kate Abraham, RN)2158 (Given - Provider: Lexi Luo, [place]) 0633 (Given - Provider: Lexi Luo, RN)1502 (Given - Provider: Lobo Gallardo RN)2216 (Given - Provider: Lexi Luo, [place]) 0803 (Given - Provider: Kyra Jackson RN) Linked Groups Order Group 1: DC MED REC REVIEW BY PHARMACYJump to med Discharge Date: 02/17/2024, Discharge Location: Subacute Rehab, Anticipated Discharge Time: Before 10 am, Discharge Medication Orders: DC Med Orders Final, Does not apply, PROTOCOL, Starting on Thu02/16/24 at 1039, Until Thu02/17/24 at 1334 And Discharge Med Rec Final Review by [...] the patient to inform them., Discharge Date: 02/17/2024, Discharge Location: Subacute Rehab, Anticipated Discharge Time: Before 10 am documented in this encounter Additional Health Concerns Assessment Noted Time PHQ-9 Depression Total Score: 5 11/02/19 9:12 AM NEONATAL INTENSIVE CARE NURSE PHQ-2 Depression Total Score: 1 11/02/19 9:12 AM NEONATAL INTENSIVE CARE NURSE documented as of this encounter Care Teams Dog Behaviorist Relationship Specialty Start Date End Date Marcela Vera MD [address] [place] [address] [address] [place] [address] PCP - General Family Medicine 12/10/21 Nolberto Campos, PT [address] [place] [address] Physical Therapist Physical Therapy 12/11/21 documented as of this encounter
--- OUTSIDE RECORDS SUMMARY | 2024-03-26 21:01 | XMS_ITS | Encounter Summary ---
Author Organization [facility] Address [address] [place] [address] Phone Care Team Providers Care Senior Partner Name Role Phone Marcela Vera MD Primary Care Provider [phone] Nolberto Campos PT Unavailable [phone] Fatemeh Medrano PT Unavailable Unavailable Fatemeh Medrano PT Unavailable Unavailable Nikki Delong PT Unavailable [phone] Encounter Details Date Type Department Care [...] Sex Assigned at Female 11/05/2021 8:07 PM IRRIGATION SERVICE TECHNICIAN Gender Identity Female 11/05/2021 8:07 PM IRRIGATION SERVICE TECHNICIAN Sexual Orientation Straight 11/05/2021 8: 07 PM IRRIGATION SERVICE TECHNICIAN documented as of this encounter Plan of Treatment Upcoming Encounters Date Type Department Care Team (Late st Contact Info) Description 03/28/2024 1:00 PM CDT [facility] [address] [phone] Navi Verduzco PA-C [address] [address], Isd[place]ebanese [address] [place] [phone] Scheduled Discharge Disposition: Discharged to home or self care (routine discharge) 03/28/2024 2:00 PM CDT Office [facility] Technology Program Manager [address] [place] [phone] Marina Vasquez, [facility] [address] [place] [phone] 1, Isd-[place]anese [address] [place] [phone] Scheduled Discharge Disposition: Discharged to home or self care (routine discharge) 04/01/2024 11:30 AM CDT [facility]ointment [facility] Physical Therapy [address] [place] [address] Chandler Zuniga, DO [address] [place] [address] Nikki Delong, PT [address] [place] [address] 1, Isd[place] [address] [place] [phone] Scheduled Discharge Disposition: Discharged to home or self care (routine discharge) 04/05/2024 1:00 PM CDT [facility]ointment [facility] Physical Therapy [address] [place] [phone] Chandler Zuniga, DO [address] [place] [address] Nikki Delong, PT [address] [place] [phone] 1, Isd-[place]ebanese [address] [place] [phone] Scheduled Discharge Disposition: Discharged to home or self care (routine discharge) 04/11/2024 11:00 AM CDT [facility]ointment [facility] Physical Therapy [address] [place] [phone] Chandler Zuniga, DO [address] [place] [address] Nikki Delong, PT [address] [place] [phone] 1, Isd-[place]anese [address] [place] [address] Scheduled Discharge Disposition: Discharged to home or self care (routine discharge) documented as of this encounter Procedures Procedure Name Priority Date/Time Associated Diagnosis Comments TELEMETRY STRIPS 02/13/2024 8:32 AM CDT documented in this encounter Results * TELEMETRY STRIPS (02/13/2024 8:32 AM CDT) Narrative 02/13/2024 8:32 AM CDT Ordered by an unspecified provider. Provider Unknown RAD ECHO documented in this encounter Visit Diagnoses Not on filedocumented in this encounter Additional Health Concerns Assessment Noted Time PHQ-9 Depression Total Score: 5 11/02/19 9:12 AM IRRIGATION SERVICE TECHNICIAN PHQ-2 Depression Total Score: 1 11/02/19 9:12 AM IRRIGATION SERVICE TECHNICIAN documented as of this encounter Care Teams Senior Partner Relationship Specialty Start Date End Date Marcela Vera MD [address] [place] [address] 644 [place] [address] PCP - General Family Medicine 12/10/21 Nolberto Campos, PT [address] [place] [address] Physical Therapist Physical Therapy 12/11/21 Fatemeh Medrano, PT [address] [place] [address] Physical Therapist Physical Therapy 02/26/24 03/07/24 Fatemeh Medrano, PT [address] [place] [address] Physical Therapist Physical Therapy 02/26/24 03/07/24 Nikki Delong, PT [address] [place] [address] Physical Therapist Physical Therapy 03/08/24 documented as of this encounter
--- OUTSIDE RECORDS SUMMARY | 2024-03-26 21:01 | XMS_ITS | Encounter Summary ---
Author Organization [facility] Address [address] [place] [address] Phone Care Team Providers Care Calcine Furnace Tender Name Role Phone Marcela Vera MD Primary Care Provider [phone] Nolberto Campos PT Unavailable [phone] Fatemeh Medrano PT Unavailable Unavailable Fatemeh Medrano PT Unavailable Unavailable Nikki Delong PT Unavailable [phone] Encounter Details Date Type Department Care Team (Late st Contact Info) Description 02/11/2024 Orders Only Unspecified Department [place] Unknown, [...] with others, in a hotel, in a penitentiary, living outside on the street, on a beach, in a car, abandoned building, bus or train station, or in a park) 02/17/2024 Sex and Gender Information Value Date Recorded Sex Assigned at Female 11/05/2021 8:07 PM TRUST OPERATIONS ASSISTANT Gender Identity Female 11/05/2021 8:07 PM TRUST OPERATIONS ASSISTANT Sexual Orientation Straight 11/05/2021 8: 07 PM TRUST OPERATIONS ASSISTANT documented as of this encounter Plan of Treatment Upcoming Encounters Date Type Department Care Team (Late st Contact Info) Description 03/28/2024 1:00 PM CDT Office Visit [facility] Rehabilitation [facility] [address] [phone] Navi Verduzco PA-C [address] [address], Isd-Paraguayan [address] [place] [address] Scheduled Discharge Disposition: Discharged to home or self care (routine discharge) 03/28/2024 2:00 PM CDT Office [facility] Traffic Maintenance Supervisor [address] [place] [address] Marina Vasquez, [facility] [address] [place] [phone] 1, Isd[place] [address] [place] [address] Scheduled Discharge Disposition: Discharged to home or self care (routine discharge) 04/01/2024 11:30 AM CDT [facility]ointment [facility] Physical Therapy [address] [place] [address] Chandler Zuniga, DO [address] [place] [address] Nikki Delong, PT [address] [place] [phone] 1, Isd-[place] [address] [place] [address] Scheduled Discharge Disposition: Discharged to home or self care (routine discharge) 04/05/2024 1:00 PM CDT [facility]ointment [facility] Physical Therapy [address] [place] [address] Chandler Zuniga, DO [address] [place] [address] Nikki Delong, PT [address] [place] [phone] 1, Isd-[place] [address] [place] [address] Scheduled Discharge Disposition: Discharged to home or self care (routine discharge) 04/11/2024 11:00 AM CDT [facility]ointment [facility] Physical Therapy [address] [place] [address] Chandler Zuniga, DO [address] [place] [address] Nikki Delong, PT [address] [place] [address] 1, Isd-[place] [address] [place] [address] Scheduled Discharge Disposition: Discharged to home or self care (routine discharge) documented as of this encounter Procedures Procedure Name Priority Date/Time Associated Diagnosis Comments TELEMETRY STRIPS 02/11/2024 10:5 4 AM CDT documented in this encounter Results * TELEMETRY STRIPS (02/11/2024 10:54 AM CDT) Narrative 02/11/2024 10:54 AM CDT Ordered by an unspecified provider. Provider Unknown RAD ECHO documented in this encounter Visit Diagnoses Not on filedocumented in this encounter Additional Health Concerns Assessment Noted Time PHQ-9 Depression Total Score: 5 11/02/19 9:12 AM TRUST OPERATIONS ASSISTANT PHQ-2 Depression Total Score: 1 11/02/19 9:12 AM TRUST OPERATIONS ASSISTANT documented as of this encounter Care Teams Calcine Furnace Tender Relationship Specialty Start Date End Date Marcela Vera MD [address] [place] [address] 6[address] [place] [address] PCP - General Family Medicine 12/10/21 Nolberto Campos, PT [address] [place] [address] Physical Therapist Physical Therapy 12/11/21 Fatemeh Medrano, PT [address] [place] [address] Physical Therapist Physical Therapy 02/26/24 03/07/24 Fatemeh Medrano, PT [address] [place] [address] Physical Therapist Physical Therapy 02/26/24 03/07/24 Nikki Delong, PT [address] [place] [address] Physical Therapist Physical Therapy 03/08/24 documented as of this encounter
--- OUTSIDE RECORDS SUMMARY | 2024-03-26 21:01 | XMS_ITS | Encounter Summary ---
Author Organization [facility] Address [address] [place] [address] Phone Care Team Providers Care Automotive Refinisher Name Role Phone Marcela Vera MD Primary Care Provider [phone]- [phone] Nolberto Campos PT Unavailable [phone] Fatemeh Medrano PT Unavailable Unavailable Fatemeh Medrano PT Unavailable Unavailable Nikki Delong PT Unavailable [phone] Encounter Details Date Type Department Care [...] Sex Assigned at Female 11/05/2021 8:07 PM OPERATING COST CLERK Gender Identity Female 11/05/2021 8:07 PM OPERATING COST CLERK Sexual Orientation Straight 11/05/2021 8: 07 PM OPERATING COST CLERK documented as of this encounter Plan of Treatment Upcoming Encounters Date Type Department Care Team (Late st Contact Info) Description 03/28/2024 1:00 PM CDT [facility] [address] [id number] Navi Verduzco PA-C [address] [address] 1, Isd-[place] Islander [address] [place] [address] Scheduled Discharge Disposition: Discharged to home or self care (routine discharge) 03/28/2024 2:00 PM CDT [facility] Intern [address] [place] [address] Marina Vasquez, [facility] [address] [place] [address] 1, Isd-[place] Islander [address] [place] [address] Scheduled Discharge Disposition: Discharged to home or self care (routine discharge) 04/01/2024 11:30 AM CDT [facility]ment [facility] Physical Therapy [address] [place] [address] 6[address] Chandler Zuniga, DO [address] [place] [address] Nikki Delong, PT [address] [place] [address] 1, Isd-[place] Islander [address] [place] [address] 47[address] Scheduled Discharge Disposition: Discharged to home or self care (routine discharge) 04/05/2024 1:00 PM CDT [facility]ment [facility] Physical Therapy [address] [place] [address] Chandler Zuniga, DO [address] [place] [address] 00[address] Nikki Delong, PT [address] [place] [address] 33[address] 1, Isd-[place] Islander [address] [place] [address] 12711 Scheduled Discharge Disposition: Discharged to home or self care (routine discharge) 04/11/2024 11:00 AM CDT [facility]ment [facility] Physical Therapy [address] [place] [address] 070[address] Chandler Zuniga, DO [address] [place] [address] Nikki Delong, PT [address] [place] [address] 1, Isd-[place] Islander [address] [place] [address] 67876 Scheduled Discharge Disposition: Discharged to home or self care (routine discharge) documented as of this encounter Procedures Procedure Name Priority Date/Time Associated Diagnosis Comments TELEMETRY STRIPS 02/11/2024 1:26 AM CDT documented in this encounter Results * TELEMETRY STRIPS (02/11/2024 1:26 AM CDT) Narrative 02/11/2024 1:26 AM CDT Ordered by an unspecified provider. Provider Unknown RAD ECHO documented in this encounter Visit Diagnoses Not on filedocumented in this encounter Additional Health Concerns Assessment Noted Time PHQ-9 Depression Total Score: 5 11/02/19 9:12 AM OPERATING COST CLERK PHQ-2 Depression Total Score: 1 11/02/19 9:12 AM OPERATING COST CLERK documented as of this encounter Care Teams Automotive Refinisher Relationship Specialty Start Date End Date Marcela Vera MD [address] [place] [address] 644 [place] [address] PCP - General Family Medicine 12/10/21 Nolberto Campos, PT [address] [place] [address]38 Physical Therapist Physical Therapy 12/11/21 Fatemeh Medrano, PT [address] [place] [address] Physical Therapist Physical Therapy 02/26/24 03/07/24 Fatemeh Medrano, PT [address] [place] [address] Physical Therapist Physical Therapy 02/26/24 03/07/24 Nikki Delong, PT [address] [place] [address] Physical Therapist Physical Therapy 03/08/24 documented as of this encounter
--- OUTSIDE RECORDS SUMMARY | 2024-03-26 21:01 | XMS_ITS | Encounter Summary ---
Author Organization [facility] Address [address] [place] [address] Phone Care Team Providers Care Fuel Operator Name Role Phone Marcela Vera MD Primary Care Provider [phone]- [phone] Nolberto Campos PT Unavailable [phone] Fatemeh Medrano PT Unavailable Unavailable Fatemeh Medrano PT Unavailable Unavailable Nikki Delong PT Unavailable [phone] Encounter Details Date Type Department Care [...] Sex Assigned at Female 11/05/2021 8:07 PM LITHOGRAPHIC ETCHER Gender Identity Female 11/05/2021 8:07 PM LITHOGRAPHIC ETCHER Sexual Orientation Straight 11/05/2021 8: 07 PM LITHOGRAPHIC ETCHER documented as of this encounter Plan of Treatment Upcoming Encounters Date Type Department Care Team (Late st Contact Info) Description 03/28/2024 1:00 PM CDT [facility] Rehabilitation Clinic [address] [phone] Navi Verduzco PA-C [address] [address] 1, Isd-Mongolian [address] [place] [address] Scheduled Discharge Disposition: Discharged to home or self care (routine discharge) 03/28/2024 2:00 PM CDT Office [facility] Watermaster [address] [place] [address] 8[address] Marina Vasquez, [facility] [address] [place] [address] 1, Isd-Mongolian [address] [place] [address] 237[address] Scheduled Discharge Disposition: Discharged to home or self care (routine discharge) 04/01/2024 11:30 AM CDT [facility]ointment [facility] Physical Therapy [address] [place] [address] 158[address] Chandler Zuniga, DO [address] [place] [address] 45[address] Nikki Delong, PT [address] [place] [address] 1, Isd-[place]ong[place]ian [address] [place] [address] 66[address] Scheduled Discharge Disposition: Discharged to home or self care (routine discharge) 04/05/2024 1:00 PM CDT [facility]ment [facility] Physical Therapy [address] [place] [address] 61554 Chandler Zuniga, DO [address] [place] [address] 08065 Nikki Delong, PT [address] [place] [address] 594[address] 1, Isd-Mongolian [address] [place] [address] 04710 Scheduled Discharge Disposition: Discharged to home or self care (routine discharge) 04/11/2024 11:00 AM CDT [facility]ment [facility] Physical Therapy [address] [place] [address] Chandler Zuniga, DO [address] [place] [address] 93883 Nikki Delong, PT [address] [place] [address] 21206 1, Isd-[place]ongolian [address] [place] [address] 95167 Scheduled Discharge Disposition: Discharged to home or self care (routine discharge) documented as of this encounter Procedures Procedure Name Priority Date/Time Associated Diagnosis Comments TELEMETRY STRIPS 02/11/2024 6:01 PM CDT documented in this encounter Results * TELEMETRY STRIPS (02/11/2024 6:01 PM CDT) Narrative 02/11/2024 6:01 PM CDT Ordered by an unspecified provider. Provider Unknown RAD ECHO documented in this encounter Visit Diagnoses Not on filedocumented in this encounter Additional Health Concerns Assessment Noted Time PHQ-9 Depression Total Score: 5 11/02/19 9:12 AM LITHOGRAPHIC ETCHER PHQ-2 Depression Total Score: 1 11/02/19 9:12 AM LITHOGRAPHIC ETCHER documented as of this encounter Care Teams Fuel Operator Relationship Specialty Start Date End Date Marcela Vera MD [address] [place] [address] 644 [place] [address] PCP - General Family Medicine 12/10/21 Nolberto Campos, PT [address] [place] [address] Physical Therapist Physical Therapy 12/11/21 Fatemeh Medrano, PT [address] [place] [address] Physical Therapist Physical Therapy 02/26/24 03/07/24 Fatemeh Medrano, PT [address] [place] [address] Physical Therapist Physical Therapy 02/26/24 03/07/24 Nikki Delong, PT [address] [place] [address] Physical Therapist Physical Therapy 03/08/24 documented as of this encounter
--- OUTSIDE RECORDS SUMMARY | 2024-03-26 21:01 | XMS_ITS | Encounter Summary ---
Author Organization [facility] Address [address] [place] [address] Phone Care Team Providers Care Pin Game Machine Inspector Name Role Phone Marcela Vera MD Primary Care Provider [phone]- [phone] Nolberto Campos PT Unavailable [phone] Fatemeh Medrano PT Unavailable Unavailable Fatemeh Medrano PT Unavailable Unavailable Nikki Delong PT Unavailable [phone] Encounter Details Date Type Department Care [...] Sex Assigned at Female 11/05/2021 8:07 PM TALENT ACQUISITION LEAD Gender Identity Female 11/05/2021 8:07 PM TALENT ACQUISITION LEAD Sexual Orientation Straight 11/05/2021 8: 07 PM TALENT ACQUISITION LEAD documented as of this encounter Plan of Treatment Upcoming Encounters Date Type Department Care Team (Late st Contact Info) Description 03/28/2024 1:00 PM CDT [facility] Rehabilitation Clinic [address] [phone] Navi Verduzco PA-C [address] [address] 1, Isd-Fijian [address] [place] [address] 18324 Scheduled Discharge Disposition: Discharged to home or self care (routine discharge) 03/28/2024 2:00 PM CDT Office [facility] Connection Worker [address] [place] [address] Marina Vasquez, [facility] [address] [place] [address] 89161 1, Isd-Fijian [address] [place] [address]69 Scheduled Discharge Disposition: Discharged to home or self care (routine discharge) 04/01/2024 11:30 AM CDT Appointment [facility] Physical Therapy [address] [place] [address] 8[address] Chandler Zuniga, DO [address] [place] [address] 6[address] Nikki Delong, PT [address] [place] [address] 87[address] 1, Isd-Fijian [address] [place] [address] 14771 Scheduled Discharge Disposition: Discharged to home or self care (routine discharge) 04/05/2024 1:00 PM CDT [facility]ointment [facility] Physical Therapy [address] [place] [address] 86[address] Chandler Zuniga, DO [address] [place] [address] 07965 Nikki Delong, PT [address] [place] [address] 29780 1, Isd-Fijian [address] [place] [address] 86443 Scheduled Discharge Disposition: Discharged to home or self care (routine discharge) 04/11/2024 11:00 AM CDT [facility]ointment [facility] Physical Therapy [address] [place] [address] 30176 Chandler Zuniga, DO [address] [place] [address] 07119 Nikki Delong, PT [address] [place] [address] 87167 1, Isd-Fijian [address] [place] [address] 48198 Scheduled Discharge Disposition: Discharged to home or self care (routine discharge) documented as of this encounter Procedures Procedure Name Priority Date/Time Associated Diagnosis Comments TELEMETRY STRIPS 02/12/2024 8:46 PM CDT documented in this encounter Results * TELEMETRY STRIPS (02/12/2024 8:46 PM CDT) Narrative 02/12/2024 8:46 PM CDT Ordered by an unspecified provider. Provider Unknown RAD ECHO documented in this encounter Visit Diagnoses Not on filedocumented in this encounter Additional Health Concerns Assessment Noted Time PHQ-9 Depression Total Score: 5 11/02/19 9:12 AM TALENT ACQUISITION LEAD PHQ-2 Depression Total Score: 1 11/02/19 9:12 AM TALENT ACQUISITION LEAD documented as of this encounter Care Teams Pin Game Machine Inspector Relationship Specialty Start Date End Date Marcela Vera MD [address] [place] [address] 644 [place] [address] PCP - General Family Medicine 12/10/21 Nolberto Campos, PT [address] [place] [address] Physical Therapist Physical Therapy 12/11/21 Fatemeh Medrano, PT [address] [place] [address] Physical Therapist Physical Therapy 02/26/24 03/07/24 Fatemeh Medrano, PT [address] [place] [address] Physical Therapist Physical Therapy 02/26/24 03/07/24 Nikki Delong, PT [address] [place] [address] Physical Therapist Physical Therapy 03/08/24 documented as of this encounter
--- OUTSIDE RECORDS SUMMARY | 2024-03-26 21:01 | XMS_ITS | Encounter Summary ---
Author Organization [facility] Address [address] [place] [address] Phone Care Team Providers Care Literacy Specialist Name Role Phone Marcela Vera MD Primary Care Provider [phone]- [phone] Nolberto Campos PT Unavailable [phone] Fatemeh Medrano PT Unavailable Unavailable Fatemeh Medrano PT Unavailable Unavailable Nikki Delong PT Unavailable [phone] Encounter Details Date Type Department Care Team (Late st Contact Info) Description 02/10/2024 Orders Only Unspecified Department [place] Unknown, [...] Sex Assigned at Female 11/05/2021 8:07 PM BISQUE KILN PLACER Gender Identity Female 11/05/2021 8:07 PM BISQUE KILN PLACER Sexual Orientation Straight 11/05/2021 8: 07 PM BISQUE KILN PLACER documented as of this encounter Plan of Treatment Upcoming Encounters Date Type Department Care Team (Late st Contact Info) Description 03/28/2024 1:00 PM CDT [facility] Physical Medicine [facility] Rehabilitation Clinic [address] [phone] Navi Verduzco PA-C [address] [address] 1, Isd-Belizean [address] [place] [address] Scheduled Discharge Disposition: Discharged to home or self care (routine discharge) 03/28/2024 2:00 PM CDT Office Visit [facility] Occ Ther [address] [place] [address] 06065 Marina Vasquez, [facility] [address] [place] [address] 1, Isd-[place]izean [address] [place] [address] 12553 Scheduled Discharge Disposition: Discharged to home or self care (routine discharge) 04/01/2024 11:30 AM CDT Appointment [facility] Physical Therapy [address] [place] [address] 07217 Chandler Zuniga, DO [address] [place] [address] Nikki Delong, PT [address] [place] [address] 20809 1, Isd-Belizean [address] [place] [address] 0[address]12 Scheduled Discharge Disposition: Discharged to home or self care (routine discharge) 04/05/2024 1:00 PM CDT Appointment [facility] Physical Therapy [address] [place] [address] 48376 Chandler Zuniga, DO [address] [place] [address]4435 Nikki Delong, PT [address] [place] [address] 78960 1, Isd-Belizean [address] [place] [address] 08220 Scheduled Discharge Disposition: Discharged to home or self care (routine discharge) 04/11/2024 11:00 AM CDT Appointment [facility] Physical Therapy [address] [place] [address] 60835 Chandler Zuniga, DO [address] [place] [address] 90[address] Nikki Delong, PT [address] [place] [address] 15518 1, Isd-Belizean [address] [place] [address] 27181 Scheduled Discharge Disposition: Discharged to home or self care (routine discharge) documented as of this encounter Procedures Procedure Name Priority Date/Time Associated Diagnosis Comments TELEMETRY STRIPS 02/10/2024 10:2 5 PM CDT documented in this encounter Results * TELEMETRY STRIPS (02/10/2024 10:25 PM CDT) Narrative 02/10/2024 10:25 PM CDT Ordered by an unspecified provider. Provider Unknown RAD ECHO documented in this encounter Visit Diagnoses Not on filedocumented in this encounter Additional Health Concerns Assessment Noted Time PHQ-9 Depression Total Score: 5 11/02/19 9:12 AM BISQUE KILN PLACER PHQ-2 Depression Total Score: 1 11/02/19 9:12 AM BISQUE KILN PLACER documented as of this encounter Care Teams Literacy Specialist Relationship Specialty Start Date End Date Marcela Vera MD [address] [place] [address] 644 [place] [address] PCP - General Family Medicine 12/10/21 Nolberto Campos, PT [address] [place] [address] Physical Therapist Physical Therapy 12/11/21 Fatemeh Medrano, PT [address] [place] [address] Physical Therapist Physical Therapy 02/26/24 03/07/24 Fatemeh Medrano, PT [address] [place] [address] Physical Therapist Physical Therapy 02/26/24 03/07/24 Nikki Delong, PT [address] [place] [address] Physical Therapist Physical Therapy 03/08/24 documented as of this encounter
--- OUTSIDE RECORDS SUMMARY | 2024-03-26 21:01 | XMS_ITS | Encounter Summary ---
Author Organization [facility] Address [address] [place] [address] Phone Care Team Providers Care Mechanical Repair Worker Name Role Phone Marcela Vera MD Primary Care Provider [phone]- [phone] Nolberto Campos PT Unavailable [phone] Fatemeh Medrano PT Unavailable Unavailable Fatemeh Medrano PT Unavailable Unavailable Nikki Delong PT Unavailable [phone] Encounter Details Date Type Department Care [...] with others, in a hotel, in a care home, living outside on the street, on a beach, in a car, abandoned building, bus or train station, or in a park) 02/17/2024 Sex and Gender Information Value Date Recorded Sex Assigned at Female 11/05/2021 8:07 PM SYSTEM CONSULTANT Gender Identity Female 11/05/2021 8:07 PM SYSTEM CONSULTANT Sexual Orientation Straight 11/05/2021 8: 07 PM SYSTEM CONSULTANT documented as of this encounter Plan of Treatment Upcoming Encounters Date Type Department Care Team (Late st Contact Info) Description 03/28/2024 1:00 PM CDT [facility] Medicine [facility] Rehabilitation Clinic [address] [phone] Navi Verduzco PA-C [address] [address] 1, Isd-[place] Islander [address] [place] [address] Scheduled Discharge Disposition: Discharged to home or self care (routine discharge) 03/28/2024 2:00 PM CDT Office Visit [facility] Machine Tool Electrician [address] [place] [address] 20206 Marina Vasquez, [facility] [address] [place] [address] 8[address] 1, Isd-[place] Islander [address] [place] [address] 90068 Scheduled Discharge Disposition: Discharged to home or self care (routine discharge) 04/01/2024 11:30 AM CDT Appointment [facility] Physical Therapy [address] [place] [address] 039[address] Chandler Zuniga, DO [address] [place] [address] 32557 Nikki Delong, PT [address] [place] [address] 51937 1, Isd-[place] Island[place] [address] [place] [address] 95077 Scheduled Discharge Disposition: Discharged to home or self care (routine discharge) 04/05/2024 1:00 PM CDT [facility]ointment [facility] Physical Therapy [address] [place] [address] 26618 Chandler Zuniga, DO [address] [place] [address] 64190 Nikki Delong, PT [address] [place] [address] 77825 1, Isd-[place] Islander [address] [place] [address] 87256 Scheduled Discharge Disposition: Discharged to home or self care (routine discharge) 04/11/2024 11:00 AM CDT Appointment [facility] Physical Therapy [address] [place] [address] 47427 Chandler Zuniga, DO [address] [place] [address] 10006 Nikki Delong, PT [address] [place] [address] 21990 1, Isd-[place] Island[place] [address] [place] [address] 80669 Scheduled Discharge Disposition: Discharged to home or self care (routine discharge) documented as of this encounter Procedures Procedure Name Priority Date/Time Associated Diagnosis Comments TELEMETRY STRIPS 02/12/2024 1:55 AM CDT documented in this encounter Results * TELEMETRY STRIPS (02/12/2024 1:55 AM CDT) Narrative 02/12/2024 1:55 AM CDT Ordered by an unspecified provider. Provider Unknown RAD ECHO documented in this encounter Visit Diagnoses Not on filedocumented in this encounter Additional Health Concerns Assessment Noted Time PHQ-9 Depression Total Score: 5 11/02/19 9:12 AM SYSTEM CONSULTANT PHQ-2 Depression Total Score: 1 11/02/19 9:12 AM SYSTEM CONSULTANT documented as of this encounter Care Teams Mechanical Repair Worker Relationship Specialty Start Date End Date Marcela Vera MD [address] [place] [address] 644 [place] [address] PCP - General Family Medicine 12/10/21 Nolberto Camops, PT [address] [place] [address] Physical Therapist Physical Therapy 12/11/21 Fatemeh Medrano, PT [address] [place] [address] Physical Therapist Physical Therapy 02/26/24 03/07/24 Fatemeh Medrano, PT [address] [place] [address] Physical Therapist Physical Therapy 02/26/24 03/07/24 Nikki Delong, PT [address] [place] [address] Physical Therapist Physical Therapy 03/08/24 documented as of this encounter
--- OUTSIDE RECORDS SUMMARY | 2024-03-26 21:02 | XMS_ITS | Encounter Summary ---
Author Organization [facility] Address [address] [place] [address] Phone Care Team Providers Care Marketing Proposal Specialist Name Role Phone Marcela Vera MD Primary Care Provider [phone]- [phone] Nolberto Campos PT Unavailable [phone] Reason for Visit * Reason Comments Follow-up Encounter Details Date Type Department Care Team ([facility] st Contact Info) Description 12/22/2023 4:20 PM CDT Office Visit [facility] [address] [place] [phone] Marcela Vera MD [address] [address] [place], [place] [id number] Northern Irish, [facility] Essential hypertension (Primary Dx) Discharge Disposition: Discharged to home or self care (routine discharge) Social History Tobacco Use Types Packs/Day Years Used Date Smoking Tobacco: Never Smokeless Tobacco: Never Alcohol Use Standard Drinks/Week Comments Never 0 (1 standard drink = 0.6 oz pur e alcohol) PHQ-2 Answer Date Recorded PHQ-2 Subtotal 1 11/02/2023 PRAPARE - Transportation Answer Date Re corded In the past 12 months, has l ack of transportation kept you from medical appointments or from getting medications? Yes 11/2021 In the past 12 months, has l ack of transportation kept you from meetings, work, or from getting things needed for daily living? Yes 06/06/2022 Sex and Gender Information Value Date Recorded Sex Assigned at Female 11/05/2021 8:07 PM ACOUSTICAL MATERIAL WORKER Gender Identity Female 11/05/2021 8:07 PM ACOUSTICAL MATERIAL WORKER Sexual Orientation Straight 11/05/2021 8: 07 PM ACOUSTICAL MATERIAL WORKER documented as of this encounter Last Filed Vital Signs Vital Sign Reading Time Taken Comments Blood Pressure 142/69 12/22/2023 4:06 PM CDT Pulse 86 12/22/2023 4:06 PM CDT Temperature 36.8 ??C (98.2 ??F) 12/22/2023 4:02 PM CD T Respiratory Rate - - Oxygen Saturation - - Inhaled Oxygen Concentration - - Weight 49.9 kg (110 lb) 12/22/2023 4:02 PM CDT Height - - Body Mass Index 30.03 11/02/2023 9:36 AM ACOUSTICAL MATERIAL WORKER documented in this encounter Progress Notes * Marcela Vera MD - 12/22/2023 4:20 PM CDT [facility] Alondra Laina Micahjuan Aguilar : 1950 Sex: female Preferred Name: Alondra Gill Medical Decision Makin. Essential hypertension Continue Amlodipine Continue BP monitoring Low salt diet History of Present Illness: Here for follow up HTN. Started taking Amlodipine 5 mg daily. Has been checking BP at home, systolic under 130's and diastolic all under 90. No chest pain or shortness of breath. Vitals: 12/22/23 1602 12/22/23 1606 BP: (!) 163/77 (!) 142/69 Cuff Location: Left Arm Right Arm Patient Position: Sitting Sitting Cuff Size: Ped - regular Ped - regular Pulse: 91 86 Temp: 36.8 ??C (98.2 ??F) TempSrc: Tympanic Weight: 49.9 kg (110 lb) Estimated body mass index is 30.03 kg/m?? as calculated from the following: Height as of 11/02/23: 1.289 m (4' 2.75). Weight as of this encounter: 49.9 kg (110 lb). Physical Exam Constitutional: Appearance: Normal appearance. Neck: Vascular: No carotid bruit. Cardiovascular: Rate and Rhythm: Normal rate and regular rhythm. Heart sounds: Normal heart sounds. Pulmonary: Breath sounds: Normal breath sounds. Abdominal: General: Bowel sounds are normal. There is no distension. Palpations: Abdomen is soft. Tenderness: There is no abdominal tenderness. There is no guarding. Musculoskeletal: Cervical back: Neck supple. Neurological: Mental Status: She is alert. documented in this encounter Plan of Treatment Upcoming Encounters Date Type Department Care Team (Late st Contact Info) Description 03/28/2024 1:00 PM CDT [facility] [address] [place] [address] Navi Verduzco PA-C [address] [place] [address] 1, Isd-Northern Irish [address] [place] [address] Scheduled Discharge Disposition: Discharged to home or self care (routine discharge) 03/28/2024 2:00 PM CDT [facility] Travel Manager [address] [place] [address] Marina Vasquez, GENERATOR ASSEMBLER [address] [place] [address] 1, Isd-Northern Irish [address] [place] [address] Scheduled Discharge Disposition: Discharged to home or self care (routine discharge) 04/01/2024 11:30 AM CDT [facility]ointment [facility] Physical [facility] [address] [place] [address] Chandlre Zuniga DO [address] [place] [address] Nikki Delong, PT [address] [place] [address] 1, Isd-Northern Irish [address] [place] [address] Scheduled Discharge Disposition: Discharged to home or self care (routine discharge) 04/05/2024 1:00 PM CDT [facility]ment [facility] Physical Therapy [address] [place] [address] Chandler Zuniga, DO [address] [place] [address] Nikki Delong, PT [address] [place] [address] 1, Isd-Northern Irish [address] [place] [address] Scheduled Discharge Disposition: Discharged to home or self care (routine discharge) 04/11/2024 11:00 AM CDT [facility]ment [facility] Physical Therapy [address] [place] [address] Chandler Zuniga, DO [address] [place] [address] Nikki Delong, PT [address] [place] [address] 1, Isd-Northern Irish [address] [place] [address] Scheduled Discharge Disposition: Discharged to home or self care (routine discharge) documented as of this encounter Visit Diagnoses Diagnosis Essential hypertension- Primary Unspecified essential hypertension documented in this encounter Additional Health Concerns Assessment Noted Time PHQ-9 Depression Total Score: 5 11/02/19 24 9:12 AM ACOUSTICAL MATERIAL WORKER PHQ-2 Depression Total Score: 1 11/02/19 24 9:12 AM ACOUSTICAL MATERIAL WORKER documented as of this encounter Care Teams Marketing Proposal Specialist Relationship Specialty Start Date End Date Marcela Vera MD [address] [place] [address] 6[address] [place] [address] PCP - General Family Medicine 12/10/21 Nolberto Campos, PT [address] [place] [address] Physical Therapist Physical Therapy 12/11/21 documented as of this encounter
--- OUTSIDE RECORDS SUMMARY | 2024-03-26 21:02 | XMS_ITS | Encounter Summary ---
Author Organization [facility] Address [address] [place] [address] Phone Care Team Providers Care Plastic Cablemaking Machine Operator Name Role Phone Marcela Vera MD Primary Care Provider [phone]- [phone] Nolberto Campos PT Unavailable [phone] Reason for Visit * Reason Comments Pre-op Appointment Encounter Details Date Type Department Care Team ([facility] st Contact Info) Description 02/01/2024 2:25 PM CDT [facility] [address] [place] [address] Ross Shannon MD [address] [place] [address] 1, Isd-Jordanian [address] [place] [address] Essential hypertension (Primary Dx) Discharge Disposition: Discharged [...] Sex Assigned at Female 11/05/2021 8:07 PM GOLF TEACHER Gender Identity Female 11/05/2021 8:07 PM GOLF TEACHER Sexual Orientation Straight 11/05/2021 8: 07 PM GOLF TEACHER documented as of this encounter Last Filed Vital Signs Vital Sign Reading Time Taken Comments Blood Pressure 145/69 02/01/2024 2:23 PM CDT Pulse 84 02/01/2024 2:23 PM CDT Temperature - - Respiratory Rate - - Oxygen Saturation - - Inhaled Oxygen Concentration - - Weight 49.6 kg (109 lb 6.4 oz) 02/01/2024 2:21 P M CDT Height - - Body Mass Index 29.86 11/02/2023 9:36 AM GOLF TEACHER documented in this encounter Patient Instructions * Patient Instructions* Boaz Richter MD - 02/01/2024 2:25 PM CDT Take your amlodipine on the morning of the procedure documented in this encounter Miscellaneous Notes * H&P - Preop - Boaz Richter MD - 02/01/2024 2:25 PM CDT [facility] PRE-OPERATIVE HISTORY & PHYSICAL EVALUATION [facility] Alondra Aguilar, : 1950, Sex: female, Preferred Name: Alondra Gill Recommendations and Plans for Optimization Prior to Surgery 1. The patient is medically optimized for the scheduled procedure. 2. Patient scored 1 out of 6 on RCRI because of: High-Risk Surgery Cardiac Assessment Recommendations: Based on the RCRI score, this patient has a <1% risk of major adverse cardiac events, and per ACC guidelines can proceed with surgery without further cardiac testing. Essential hypertension Elevated in clinic today but her home readings are at goal. Would continue with current dose of amlodipine 5 mg daily for now. 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 Preoperative Risk Assessment and ROS Recently started on amlodipine 5 mg. Home BP is in the 120-130 range. No lightheadedness General Recent fevers, chills, upper respiratory symptoms, or acute changes in energy level: No Chest pain or dyspnea with exertion: No Recent swelling of feet or ankles: Yes, minimal intermittent edema in ankles since starting amlodipine Recent exposure to systemic steroid: No. Dental appliance or recent dental problems: No Open wound with/without infection: No : No Anesthesia Considerations Patient denies family history of anesthesia reactions. Patient endorses prior perioperative and/or anesthetic complications including other: slow to wakeup. Functional Capacity Assessment No recent change in exercise tolerance. She can walk up 10 steps without any respiratory difficulty. Leg and back pain limit her from doing more. Patient Active Problem List Diagnosis Cancer screening Scoliosis of lumbar spine Arthralgia of both hands Lumbar radiculopathy Cervical radiculopathy Essential hypertension Past Medical and Surgical History No past medical history on file. Past Surgical History: Procedure Laterality Date REPRODUCTIVE SURGERY HISTORY Bilateral 1984 tubal Current Medication List Current Outpatient Medications Medication Sig Dispense Refill amLODIPine (NORVASC) 5 mg oral TABS Take 1 tablet (5 mg) by mouth daily. 90 tablet 4 cyanocobalamin (B-12 DOTS) 1000 mcg SL tablet sublingual tablet One tablet daily 100 tablet 3 Cholecalciferol 25 MCG (1000 UT) oral capsule Take 1,000 UNITS by mouth daily. 90 capsule 3 No current facility-administered medications for this visit. Allergies No Known Drug Allergies Physical Examinations Vitals: 02/01/24 1421 02/01/24 1423 BP: (!) 166/74 (!) 145/69 Cuff Location: Right Arm Right Arm Patient Position: Sitting Sitting Cuff Size: Adult - regular Adult - regular Pulse: 82 84 Weight: 49.6 kg (109 lb 6.4 oz) Physical Exam Preoperative Diagnostic Studies: Preoperative diagnostic studies/labs not indicated. Boaz Richter MD Due to a language barrier, a professional housekeeping associate was present by telephone during this encounter. documented in this encounter Plan of Treatment Upcoming Encounters Date Type Department Care Team (Late st Contact Info) Description 03/28/2024 1:00 PM CDT [facility] [address] [place] [address] Navi Verduzco PA-C [address] [place] [address] 1, Isd-Jordanian [address] [place] [address] Scheduled Discharge Disposition: Discharged to home or self care (routine discharge) 03/28/2024 2:00 PM CDT [facility] Press Manager [address] [place] [address] OnstaMarina shen, ROCK LATHER [address] [place] [address] 1, Isd-Jordanian [address] [place] [address] Scheduled Discharge Disposition: Discharged to home or self care (routine discharge) 04/01/2024 11:30 AM CDT [facility]ment [facility] Physical Therapy [address] [place] [address] Chandler Zuniga, DO [facility] [address] [place] [address] Nikki Delong, PT [address] [place] [address] 1, Isd-Jordanian [address] [place] [address] Scheduled Discharge Disposition: Discharged to home or self care (routine discharge) 04/05/2024 1:00 PM CDT [facility]ment [facility] [address] [place] [address] Chandler Zuniga, DO [address] [place] [address] Nikki Delong, PT [address] [place] [address] 1, Isd-Jordanian [address] [place] [address] Scheduled Discharge Disposition: Discharged to home or self care (routine discharge) 04/11/2024 11:00 AM CDT [facility]ment [facility] Physical [facility] [address] [place] [address] Chandler Zuniga, [address] [address] Nikki Delong, PT [address] [place] [address] 1, Isd-Jordanian [address] [place] [address] Scheduled Discharge Disposition: Discharged to home or self care (routine discharge) documented as of this encounter Visit Diagnoses Diagnosis Essential hypertension- Primary Unspecified essential hypertension documented in this encounter Additional Health Concerns Assessment Noted Time PHQ-9 Depression Total Score: 5 11/02/19 9:12 AM GOLF TEACHER PHQ-2 Depression Total Score: 1 11/02/19 9:12 AM GOLF TEACHER documented as of this encounter Care Teams Plastic Cablemaking Machine Operator Relationship Specialty Start Date End Date Marcela Vera MD [address] [place] [address] 644 [place] [address] PCP - General Family Medicine 12/10/21 Nolberto Campos, PT [address] [place] [address] Physical Therapist Physical Therapy 12/11/21 documented as of this encounter
--- OUTSIDE RECORDS SUMMARY | 2024-03-26 21:02 | XMS_ITS | Encounter Summary ---
Author Organization [facility] Address [address] [place] [address] Phone Care Team Providers Care Slipcover Cutter Name Role Phone Marcela Vera MD Primary Care Provider [phone]- [phone] Nolberto Campos PT Unavailable [phone] Encounter Details Date Type Department Care Team (Latest Contact Info) Description 12/22/2023 Travel Social History Tobacco Use Types Packs/Day [...] Sex Assigned at Female 11/05/2021 8:07 PM HOPS FARMWORKER Gender Identity Female 11/05/2021 8:07 PM HOPS FARMWORKER Sexual Orientation Straight 11/05/2021 8: 07 PM HOPS FARMWORKER documented as of this encounter Plan of Treatment Upcoming Encounters Date Type Department Care Team (Late st Contact Info) Description 03/28/2024 1:00 PM CDT [facility] [address] [place] [address] Navi Verduzco PA-C [address] [place] [address] 1, Isd-Botswanan [address] [place] [address] Scheduled Discharge Disposition: Discharged to home or self care (routine discharge) 03/28/2024 2:00 PM CDT [facility] Balance Wheel Screw Hole Tapper [address] [place] [address] Marina Vasquez, FOOD AND BEVERAGE ANALYST [address] [place] [address] 1, Isd-Botswanan [address] [place] [address] Scheduled Discharge Disposition: Discharged to home or self care (routine discharge) 04/01/2024 11:30 AM CDT [facility]ment [facility] Physical [facility] [address] [place] [address] Chandler Zuniga, DO [address] [place] [address] Nikki Delong, PT [address] [place] [address] 1, Isd-Botswanan [address] [place] [address] Scheduled Discharge Disposition: Discharged to home or self care (routine discharge) 04/05/2024 1:00 PM CDT [facility]ment [facility] Physical [facility] [address] [place] [address] Chandler Zuniga, DO [address] [place] [address] Nikki Delong, PT [address] [place] [address] 1, Isd-Botswanan [address] [place] [address] Scheduled Discharge Disposition: Discharged to home or self care (routine discharge) 04/11/2024 11:00 AM CDT [facility] Physical Therapy [address] [address] Chandler Zuniga, DO [address] [address] Nikki Delong, PT [address] [place] [address] 1, Isd-Botswanan [address] [place] [address] Scheduled Discharge Disposition: Discharged to home or self care (routine discharge) documented as of this encounter Visit Diagnoses Not on filedocumented in this encounter Additional Health Concerns Assessment Noted Time PHQ-9 Depression Total Score: 5 11/02/19 9:12 AM HOPS FARMWORKER PHQ-2 Depression Total Score: 1 11/02/19 9:12 AM HOPS FARMWORKER documented as of this encounter Care Teams Slipcover Cutter Relationship Specialty Start Date End Date Marcela Vera MD [address] [place] [address] 644 [place] [address] PCP - General Family Medicine 12/10/21 Nolberto Campos, PT [address] [address] Physical Therapist Physical Therapy 12/11/21 documented as of this encounter
--- OUTSIDE RECORDS SUMMARY | 2024-03-26 21:02 | XMS_ITS | Encounter Summary ---
Author Organization [facility] Address [address] [facility] [place] [address] Phone Care Team Providers Care Furnace Helper Name Role Phone Marcela Vera MD Primary Care Provider [phone] Nolberto Campos PT Unavailable [phone] Fatemeh Medrano PT Unavailable Unavailable Fatemeh Medrano PT Unavailable Unavailable Nikki Delong PT Unavailable [phone] Encounter Details Date Type Department Care Team (Late st Contact Info) Description 02/09/[address] [facility] Student Driving Instructor Services [facility] [address] [place] [address] P1.675 [place] [address] Student Driving Instructor, Services Social History Tobacco Use Types Packs/Day [...] with others, in a hotel, in a halfway, living outside on the street, on a beach, in a car, abandoned building, bus or train station, or in a park) 02/17/2024 Sex and Gender Information Value Date Recorded Sex Assigned at Female 11/05/2021 8:07 PM MAPPING SPECIALIST Gender Identity Female 11/05/2021 8:07 PM MAPPING SPECIALIST Sexual Orientation Straight 11/05/2021 8: 07 PM MAPPING SPECIALIST documented as of this encounter Plan of Treatment Upcoming Encounters Date Type Department Care Team (Late st Contact Info) Description 03/28/2024 1:00 PM CDT [facility] [address] [place] [address] Navi Verduzco, ROSEANNE [address] [place] [address] 1, Isd-Mauritanian [address] [place] [address] Scheduled Discharge Disposition: Discharged to home or self care (routine discharge) 03/28/2024 2:00 PM CDT [facility] Licensing And Registration Director [address] [place] [address] OnstaMarina shen, [facility] [address] [address] 1, Isd-Mauritanian [address] [place] [address] Scheduled Discharge Disposition: Discharged to home or self care (routine discharge) 04/01/2024 11:30 AM CDT [facility]ointment [facility] Physical Therapy [address] [place] [address] Chandler Zuniga, DO [address] [place] [address] Nikki Delong, PT [address] [place] [address] 1, Isd-Mauritanian [address] [place] [address] Scheduled Discharge Disposition: Discharged to home or self care (routine discharge) 04/05/2024 1:00 PM CDT [facility]ointment [facility] Physical Therapy [address] [place] [address] Chandler Zuniga, DO [address] [place] [address] Nikki Delong, PT [address] [place] [address] 1, Isd-Mauritanian [address] [place] [address] Scheduled Discharge Disposition: Discharged to home or self care (routine discharge) 04/11/2024 11:00 AM CDT [facility]ointment [facility] Physical Therapy [address] [place] [address] Chandler Zuniga, DO [address] [place] [address] Nikki Delong, PT [address] [place] [address] 1, Isd-Mauritanian [address] [place] [address] Scheduled Discharge Disposition: Discharged to home or self care (routine discharge) documented as of this encounter Visit Diagnoses Not on filedocumented in this encounter Additional Health Concerns Assessment Noted Time PHQ-9 Depression Total Score: 5 11/02/19 9:12 AM MAPPING SPECIALIST PHQ-2 Depression Total Score: 1 11/02/19 9:12 AM MAPPING SPECIALIST documented as of this encounter Care Teams Furnace Helper Relationship Specialty Start Date End Date Marcela Vera MD [address] [place] [address] 644 [place] [address] PCP - General Family Medicine 12/10/21 Nolberto Campos, PT [address], [place] [address] Physical Therapist Physical Therapy 12/11/21 Fatemeh Medrano, PT [address] [place] [address] Physical Therapist Physical Therapy 02/26/24 03/07/24 Fatemeh Medrano, PT [address] [place] [address] Physical Therapist Physical Therapy 02/26/24 03/07/24 Nikki Delong, PT [address] [place] [address] Physical Therapist Physical Therapy 03/08/24 documented as of this encounter
--- OUTSIDE RECORDS SUMMARY | 2024-03-26 21:02 | XMS_ITS | Encounter Summary ---
Author Organization [facility] Address [address] [place] [address] Phone Care Team Providers Care Research Agricultural Engineer Name Role Phone Marcela Vera MD Primary Care Provider [phone] Nolberto Campos PT Unavailable [phone] Encounter Details Date Type Department Care Team (Latest Contact Info) Description 02/01/2024 Travel Social History Tobacco Use Types Packs/Day [...] Sex Assigned at Female 11/05/2021 8:07 PM SHIP MATE Gender Identity Female 11/05/2021 8:07 PM SHIP MATE Sexual Orientation Straight 11/05/2021 8: 07 PM SHIP MATE documented as of this encounter Plan of Treatment Upcoming Encounters Date Type Department Care Team (Late st Contact Info) Description 03/28/2024 1:00 PM CDT [facility] [address] [place] [address] Navi Verduzco PA-C [address] [place] [phone] 1, Is[place] [address] [place] [address] Scheduled Discharge Disposition: Discharged to home or self care (routine discharge) 03/28/2024 2:00 PM CDT [facility] Supervisor Detasseling Crew [address] [place] [address] Marina Vasquez, POULTRY SCALDER [address] [place] [address] 1, [place] [address] [place] [address] Scheduled Discharge Disposition: Discharged to home or self care (routine discharge) 04/01/2024 11:30 AM CDT [facility]ointment [facility] Physical Therapy [address] [place] [address] Chandler Zuniga, DO [address] [place] [address] Nikki Delong, PT [address] [place] [phone] 1, [place] [address] [place] [address] Scheduled Discharge Disposition: Discharged to home or self care (routine discharge) 04/05/2024 1:00 PM CDT [facility]ment [facility] Physical Therapy [address] [place] [address] Chandler Zuniga, DO [address] [place] [address] Nikki Delong, PT [address] [place] [phone] 1, [place] [address] [place] [address] Scheduled Discharge Disposition: Discharged to home or self care (routine discharge) 04/11/2024 11:00 AM CDT [facility]ment [facility] Physical Therapy [address] [address] Chandler Zuniga, DO [address] [address] Nikki Delong, PT [address] [place] [address] 1, [place] [address] [place] [address] Scheduled Discharge Disposition: Discharged to home or self care (routine discharge) documented as of this encounter Visit Diagnoses Not on filedocumented in this encounter Additional Health Concerns Assessment Noted Time PHQ-9 Depression Total Score: 5 11/02/19 9:12 AM SHIP MATE PHQ-2 Depression Total Score: 1 11/02/19 9:12 AM SHIP MATE documented as of this encounter Care Teams Research Agricultural Engineer Relationship Specialty Start Date End Date Marcela Vera MD [address] [place] [address] [address] [place] [address] PCP - General Family Medicine 12/10/21 Nolberto Campos, PT [address] [address] Physical Therapist Physical Therapy 12/11/21 documented as of this encounter
--- OUTSIDE RECORDS SUMMARY | 2024-03-26 21:02 | XMS_ITS | Encounter Summary ---
Author Organization [facility] Address [address] [place] [address] Phone Care Team Providers Care Director Of Extension Work Name Role Phone Marcela Vera MD Primary Care Provider [phone] Nolberto Campos PT Unavailable [phone] Reason for Visit * Reason Comments Pre-op Teaching Encounter Details Date Type Department Care Team (Late st Contact Info) Description 02/01/2024 3:00 PM CDT Nurse Only [facility] [address] [place] [address] Tushar Antoine MD [address] [place] [phone] 1 Is[place] [address] [place] [address] Discharge Disposition: Discharged to home or self [...] Sex Assigned at Female 11/05/2021 8:07 PM WATER SAFETY TEACHER Gender Identity Female 11/05/2021 8:07 PM WATER SAFETY TEACHER Sexual Orientation Straight 11/05/2021 8: 07 PM WATER SAFETY TEACHER documented as of this encounter Progress Notes * Maribell Olivares RN - 02/01/2024 3:00 PM CDT Pre-op teaching for T11-S2 Iliac crest fusion with posterior lumbar interbody fusion on ThursdayFebruary [address] Antoine reviewed with patient and her two daughters. Reviewed and given copy of pre-op booklet (occitan) with in person fashion buyer. Highlighted surgery date, arrival place, phone number to call if does not receive pre-op call by 3:00pm the evening prior to surgery, running late the morning of surgery or if child becomes ill prior to surgery, or if any questions. Stress the importance of being available for pre-op call as any changes or updates are given at that time. NPO status reviewed. Instructed no IBuProfen use prior to procedure, rationale given. Use of Chlorhexidine wipes explained with rationale, given written updated reference as well and distributed wipes for evening prior and morning of procedure. Pre-op completed on ThursdayJanuary 31. Informed patient that they are allowed 1 visitor overnight (as long as they are in a private room) but the visitor has to arrive by 10 pm. Instructed that visitation is from 8 am-10 pm. Instructed there is no limit on how many visitors the patient can have. Instructed patient to NOT park in the [place] for surgery. Gave patient address to the parking ramp that they can park in for surgery. Instructed patient and patient's family to arrive at [facility] entrance and to park in the ramp across from [facility]. Patient and patient's family understood instructions and had no further questions. Maribell Olivares RN, 02/01/2024 4:42 PM documented in this encounter Plan of Treatment Upcoming Encounters Date Type Department Care Team (Late st Contact Info) Description 03/28/2024 1:00 PM CDT [facility] Rehabilitation Clinic [address] [place] [address] Navi Verduzco PA-C [address] [place] [phone] 1, [place] [address] [place] [address] Scheduled Discharge Disposition: Discharged to home or self care (routine discharge) 03/28/2024 2:00 PM CDT Office Visit [facility] Senior Process Analyst [address] [place] [address] Marina Vasquez, [facility] [address] [place] [phone] 1, [place] [address] [place] [address] Scheduled Discharge Disposition: Discharged to home or self care (routine discharge) 04/01/2024 11:30 AM CDT [facility]ointment [facility] Physical Therapy [address] [place] [address] Chandler Zuniga, DO [address] [place] [address] Nikki Delong, PT [address] [place] [phone] 1, [place] [address] [place] [address] Scheduled Discharge Disposition: Discharged to home or self care (routine discharge) 04/05/2024 1:00 PM CDT [facility]ointment [facility] Physical Therapy [address] [place] [address] Chandler Zuniga, DO [address] [place] [address] Nikki Delong, PT [address] [place] [phone] 1, [place] [address] [place] [address] [place] [address] Scheduled Discharge Disposition: Discharged to home or self care (routine discharge) 04/11/2024 11:00 AM CDT [facility]ointment [facility] Physical Therapy [address] [address] Chandler Zuniga, DO [address] [address] Nikki Delong, PT [address] [place] [address] 1, [place] [address] [place] [address] Scheduled Discharge Disposition: Discharged to home or self care (routine discharge) documented as of this encounter Visit Diagnoses Not on filedocumented in this encounter Additional Health Concerns Assessment Noted Time PHQ-9 Depression Total Score: 5 11/02/19 9:12 AM WATER SAFETY TEACHER PHQ-2 Depression Total Score: 1 11/02/19 9:12 AM WATER SAFETY TEACHER documented as of this encounter Care Teams Director Of Extension Work Relationship Specialty Start Date End Date Marcela Vera MD [address] [place] [address] [place] [address] PCP - General Family Medicine 12/10/21 Nolberto Campos, PT [address] [place] [address] Physical Therapist Physical Therapy 12/11/21 documented as of this encounter
--- OUTSIDE RECORDS SUMMARY | 2024-03-26 21:02 | XMS_ITS | Encounter Summary ---
Author Organization [facility] Address [address] [place] [address] Phone Care Team Providers Care Dye Range Feeder Name Role Phone Marcela Vera MD Primary Care Provider [phone] Nolberto Campos PT Unavailable [phone] Reason for Visit * Auth/Cert (Routine) Specialty Diagnoses / Procedures Referred By Contac t Referred To Contact SURGERY Diagnoses Scoliosis of lumbar region due to degenerative disease of spine in adult Scoliosis of lumbar region due to degenerative disease of spine in adult Procedures SPINAL FUSION POST LUMBAR/THORACIC W/[id number]-WKNTushar Ovalle MD [address] [place] [address] [address] [place] [address] Referral ID Status Reason Start Date Expiration Date Visits Re quested Visits Authorized [id number] 1 1 Encounter Details Date Type Department Care Team (Late st Contact Info) Description 02/10/2024 7:30 AM CDT - 02/10/2024 3:04 PM CDT Surgery OR P4 [address] [place] [address] Tushar Antoine MD [address] [place] [address] SPINAL FUSION POST LUMBAR/THORACIC W/[id number] T11-S2/iliac crest fusion with posterior lumbar interbody fusion and cell saver Social History Tobacco Use Types Packs/Day Years [...] Sex Assigned at Female 11/05/2021 8:07 PM COMMUNITY RELATIONS LIAISON Gender Identity Female 11/05/2021 8:07 PM COMMUNITY RELATIONS LIAISON Sexual Orientation Straight 11/05/2021 8: 07 PM COMMUNITY RELATIONS LIAISON COVID-19 Exposure Response Date Recorded In the last 10 days, have yo u been in contact with someone who was confirmed or suspected to have Coronavirus/COVID-19? No / Unsure 11/02/2023 9:28 AM COMMUNITY RELATIONS LIAISON documented as of this encounter Last Filed Vital Signs Vital Sign Reading Time Taken Comments Blood Pressure 153/64 02/10/2024 5:57 AM CDT Pulse 79 02/10/2024 5:57 AM CDT Temperature 36.5 ??C (97.7 ??F) 02/10/2024 5:57 AM CD T Respiratory Rate 20 02/10/2024 5:57 AM CDT Oxygen Saturation 95% 02/10/2024 5:57 AM CDT Inhaled Oxygen Concentration - - Weight 48.8 kg (107 lb 9.6 oz) 02/10/2024 5:57 A M CDT Height 128.9 cm (4' 2.75) 02/10/2024 5:57 AM CD T Body Mass Index 29.37 02/10/2024 5:57 AM CDT documented in this encounter Discharge Summaries * Emma Wesley PA-C - 02/17/2024 5:21 AM CDT NEUROSURGERY DISCHARGE SUMMARY Nuria Gill Jeff : 1950 Sex: female Date of Admission: [...] L5-S1. Posterior lateral arthrodesis at all levels. [place] of local bone. Utilization of bone morphogenic [...] Patient underwent the above procedure with Dr. Antoine on 02/15. She tolerated the procedure well. Imaging was stable post-op. Therapies recommended discharge to rehab. She discharged to [place] [facility] on 02/16. PENDING TESTS RESULTS: None [...] Sensory: Sensation intact in all 4 extremities Boat Joiner Needed: yes- Prydeinig [35] PLANNED DISCHARGE ORDERS: Suture/[place]: Location spine; Removal date: 02/19 Wound Care [...] - Walking is encouraged - Please contact [employer] with questions, concerns, fit adjustment, or repairs of your brace at [phone] Lifting restriction Order Notes -- Do not [...] Call the Neurosurgery clinic for refills at [phone] Medication List START taking these medications acetaminophen [...] this encounter Progress Notes * Lisa Gunn, COACH BUILDER - 02/16/2024 3:55 PM CDT Physical Therapy [...] endorse back pain - improves with mobility) O:Boat Joiner Used: Yes, agency or phone scrap preparer Name or Reference Number (phone): Vinnie Restrictions/Precautions [...] Shoulder Width Eyes Open (sec): 120 (with teletypewriter operator providing jose maria-cares and adjusting clothing UE [...] transfer supine to/from sit with (6) Modified [place] with logrolling technique To facilitate safe discharge to least restrictive environment by 03/03/24. Outcome: In progress Goal: Patient will transfer sit to/from stand Description: Patient will transfer sit to/from stand with (6) Modified [place] with FWW To facilitate safe discharge to least restrictive environment by 03/03/24. Outcome: In progress Problem: Decreased Ambulatory Skills Goal: Improve gait Description: Ambulate 50 meters using Front - wheeled walker with (6) Modified [place] To facilitate safe discharge to least restrictive environment by 03/03/24. Outcome: In progress Goal: Improve gait on stairs Description: Ascend/descend 3 + 6 stairs using rail with (6) Modified [place] (while carrying walker) To facilitate safe discharge to least restrictive environment by 03/03/24. Outcome: In progress P: Patient will be seen 2-4x/week until goals are met or patient is discharged. Next visit the planis to work on supine to sit, bed to chair with brace, sit to stand reps, gait with walker, review brace management ongoing. COACH BUILDER Appropriate: Yes Lisa Gunn PTA 02/16/2024 Pager: [facility] PT Dept * Lashell Medellin PA-C - 02/16/2024 2:37 PM CDT Physical Medicine & Rehabilitation Follow-Up Nuria Aguilar : 1950 Sex: female [facility] [place] Prydeinig video scrap preparer used for this visit Patient states she [...] 4/4 extremities, answers simple questions appropriately via scrap preparer Psych: calm, appropriate mood and affect Skin: warm and dry Impression: Nuria Aguilar is a 73 y.o. female with chronic medical conditions including hypertension, chronic low back pain, degenerative scoliosis, admitted [place] [facility] [place] 10, 2024 for elective spinal fusion [...] to rehabilitation setting tomorrow. Anticipate discharge to [facility] tomorrow, 02/16. We will continue to follow and update recommendations as appropriate. Thank you for involving us inthis patient's care. Please feel free to page me with questions/concerns. Parts of this note have been dictated using [employer] dictation software. Please excuse any geriatric aide errors and feel free to contact me regarding such errors or confusion regarding intended message. Lashell Medellin PA-C, CBIS Pager via [employer] Total time spent on this encounter, on the date of service including pre-visit review of separatelyobtained history, jjrh-zm-pgvm interaction performing medically appropriate physical exam, patient counseling/education, interpretation of diagnostic results, care coordination and documentation was 35 minutes. * Chandler Zuniga, - 02/16/2024 2:37 PM CDT [facility] Acute Inpatient Rehabilitation Facility Pre-Admission Screening Diagnosis / Condition that Caused Need for Rehabilitation - s/p spinal fusion Onset Date: 02/10/2024 Medical History and Status, Comorbidities, Complications- Nuria Aguilar is a 73 y.o. female with chronic medical conditions including hypertension, chronic low back pain, degenerative scoliosis, admitted to [facility] [place] 10, 2024 for elective spinal fusion [...] Zuniga DO, 02/17/2024 7:29 AM * Destiny Bojorquez, OTR/L - 02/16/2024 11:30 AM CDT Occupational Therapy [...] to be fit for brace) (02/13/24 1000) Boat Joiner Used: Yes, agency or phone scrap preparer SUBJECTIVE: I don't have as much warning [...] Patient / Caregiver Training: Interdisciplinary Communication: RN: ok to see pt; weaning use of external [...] each: Self care/Home mgmt/ADL: 40 minutes Destiny Posey OTR/L Pager: Spreedly OT Department * Sylvie Tamayo CO - 02/16/2024 9:11 AM CDTSummary: Brace adjusted [facility] Nuria Aguilar was seen at [facility] in rm #[id number] for evaluation of [...] will be followed as needed. Sylvie Tamayo [phone] * Yoandy Magaña - 02/16/2024 7:59 AM CDTSummary: Post Acute Referrals Post Acute Referrals Referrals to post acute placement have been sent. Updates about referral status can be seen below .This note will continue to be updated by the case management team. Addendum history can be seen below. Barrier: E-MA with [place] discount. [facility] is the ONLY rehab option. No coverage for HH/DME/TCU Continued Care and Services - Admitted Since 02/10/2024 Destination Service Provider Request Status Selected Services Address Phone Fax Patient Preferred [facility] [phone] Considering Need clinical review, Need insurance authorization N/A [address] [place] [address] -- -- Internal Comment last updated by [...] adult NEUROSURGICAL OPERATIONS: SPINAL FUSION POST LUMBAR/THORACIC W/[id number]-N-GLY T11-S2/iliac crest fusion with posterior lumbar interbody [...] language. Motor: Follows commands x4 extremities, 5/5 business center representative strength and plantar/dorsiflexion bilaterally Sensory: Sensation intact [...] in - PT/OT - TLSO Brace - Ananda to reasses fit - Electrolytes - Sodium [...] Antoine MD - 02/16/2024 12:[place] [address] [facility]#: [id number] PATIENT: NURIA FOX : 1950 DATE DICTATED: 02/17/2024 SURGERY STAFF DAILY PROGRESS NOTE DATE OF SERVICE: 02/16/2024 I saw and evaluated the patient. I discussed management with residents, SURVEILLANCE SYSTEM MONITOR, and PAs on the Neurosurgery team and agree with documented findings and plan. Ms. Bridget Aguilar looks extremely good. She states her pain is better. She has been up walking with therapies and with her family. She is going to go to [facility] tomorrow. She is neurologically stable and intact. Her hemoglobin has been relatively stable. Postoperative x-rays look satisfactory. She remains under very close neurologic observation. Tushar Antoine MD Staff Physician Surgery Service Received in Route Salesperson: 02/17/2024 12:21:49 M: /[id number] WG/MODL * Destiny Bojorquez OTR/Jordon - 02/15/2024 [...] to be fit for brace) (02/13/24 1000) Boat Joiner Used: Yes, agency or phone scrap preparer SUBJECTIVE: Pain Pain Rating With Activity (Numeric): [...] on each: Self care/Home mgmt/ADL: 38 minutes JESSICA Scanlon/L Pager: As Seen on TV OT Department * Jake Pena MD - 02/15/2024 6:42 AM CDT NEUROSURGERY INPATIENT PROGRESS NOTE: NEUROSURGICAL INJURIES: Scoliosis of lumbar region due to degenerative disease of spine in adult NEUROSURGICAL OPERATIONS: SPINAL FUSION POST LUMBAR/THORACIC W/[id number]-[id number] T11-S2/iliac crest fusion with posterior lumbar interbody [...] language. Motor: Follows commands x4 extremities, 5/5 business center representative strength and plantar/dorsiflexion bilaterally Sensory: Sensation intact [...] Ron MD - 02/15/2024 12:00 AM CDT [place], [place] [id number] [place] [address]#: [id number] PATIENT: NURIA FOX : 1950 DATE DICTATED: 02/15/2024 SURGERY STAFF DAILY PROGRESS NOTE DATE OF SERVICE: 02/15/2024 I saw and evaluated the patient. I discussed management with residents, SURVEILLANCE SYSTEM MONITOR, and PAs on the Neurosurgery team and agree with documented findings and plan. Nuria is recovering from a T11-S2 fusion with Dr. Antoine. Her upright x-rays are stable. She is moe TLSO. We removed 1 of her Hemovac's today. She is making slow and gradual progress. Lalit Ron MD Staff Physician Neurosurgery Service Received in Route Salesperson: 02/15/2024 20:16:11 M: /[id number] TB/MODL * Juanita Alexander MD - 02/14/2024 2:18 PM CDT NEUROSURGERY INPATIENT PROGRESS NOTE: NEUROSURGICAL INJURIES: Scoliosis of lumbar region due to degenerative disease of spine in adult NEUROSURGICAL OPERATIONS: SPINAL FUSION POST LUMBAR/THORACIC W/[id number]-[id number]-[id number] T11-S2/iliac crest fusion with posterior lumbar interbody [...] language. Motor: Follows commands x4 extremities, 5/5 business center representative strength and plantar/dorsiflexion bilaterally Sensory: Sensation intact [...] chemoprophylaxis - Disposition: Floor Staffed with Juanita Hanson MD, 02/14/2024 2:18 PM EM PGY-2 Surgery [...] questions. Follow up PRN. Jan Mendoza - STUDIO CAMERA OPERATOR * Jan Mendoza CO - 02/13/2024 6:58 PM CDT Ananda Shipman saw patient to fit with custom #6 TLSO. The Rn and daughter were present helped as patient was fit while standing, then sat on bed. Fit looks initially proper, may need adjustment as patient wears TLSO. Call Ananda with any questions. Jan Mendoza - STUDIO CAMERA OPERATOR * Jan Mendoza CO - 02/13/2024 11:36 AM CDT R4.122 Consult from Neurosurg. Ananda Shipman saw patient with OT and RN present and video scrap preparer and scanned patient while standing while using walker for custom one piece TLSO. The TLSO may, might be ready at end of day, otherwise some time tomorrow AM. Call Ananda with any questions. Jan Mendoza - STUDIO CAMERA OPERATOR * Juanita Alexander MD - 02/13/2024 6:01 AM CDT NEUROSURGERY INPATIENT PROGRESS NOTE: NEUROSURGICAL INJURIES: Scoliosis of lumbar region due to degenerative disease of spine in adult NEUROSURGICAL OPERATIONS: SPINAL FUSION POST LUMBAR/THORACIC W/[id number]-D-ZJG T11-S2/iliac crest fusion with posterior lumbar interbody [...] Follows commands x4 extremities, intact but pain-limited business center representative strength and plantar/dorsiflexion bilaterally Sensory: Sensation intact [...] Antoine MD - 02/13/2024 12:00 [place] [address] [facility]#: [id number] PATIENT: NURIA FOX : 1950 DATE DICTATED: 02/13/2024 SURGERY STAFF DAILY PROGRESS NOTE DATE OF SERVICE: 02/13/2024 I saw and evaluated the patient. I discussed management with residents, SURVEILLANCE SYSTEM MONITOR, and PAs on the Neurosurgery team and [...] MD Staff Physician Surgery Service Received in Route Salesperson: 02/13/2024 10:25:16 M: /[id number] WG/MODL * Johnny Ortega PT - 02/12/2024 4:18 PM CDT PT order to eval and treat received. Chart reviewed. The pt still does not has his brace. PT returned the pt to new evaluation list and the evaluation will happen after brace issued. Johnny Ortega, PT, 02/12/2024 4:19 PM * Madelin Garcia OTR/L - 02/12/2024 3:23 PM CDT OT order received, chart reviewed. Per RN, patient has not been fitted for brace yet. Will hold OT evaluation until patient is braced, as per activity orders. Madelin Garcia OTR/L, 02/12/2024 3:24 PM * Nolberto Gonzalez MDIV - 02/12/2024 12:42 PM CDTSummary: Anointing of the Sick sacrament by Fr. Arvizu 02/12/24 Spiritual Care Note Nuria Aguilar : 1950 Sex: female LOS: 2 days Summary: Anointed. Daughter present. Plan: Chaplains are available as needed. Nolberto Gonzalez MDIV, 02/12/2024 12:42 PM Pager: [phone] * Lai Jewell - 02/12/2024 9:49 AM CDT Nuria was seen in room R4.122 to attempt to scan for custom TLSO post-surgically. Her nurse was present at the time of visit to assist with getting her up. She demonstrated that she was unable to stand at this time due to some lower extremity weakness. Pain was reported as manageable via scrap preparer. Will return later today to attempt again. Lai Jewell STUDIO CAMERA OPERATORSharonda Malave O&P [phone] * Tushar Antoine MD - 02/12/2024 12:00 [place] [address] [facility]#: [id number] PATIENT: NURIA FOX : 1950 DATE DICTATED: 02/13/2024 SURGERY STAFF DAILY PROGRESS NOTE DATE OF SERVICE: 02/12/2024 I saw and evaluated the patient. I discussed management with residents, SURVEILLANCE SYSTEM MONITOR, and PAs on the Neurosurgery team and [...] MD Staff Physician Surgery Service Received in Route Salesperson: 02/13/2024 10:04:04 M: /[id number] WG/MODL * Valarie Kaba RN - 02/11/2024 8:57 PM CDT Blood draw completed at 2039 and sent to lab for hgb recheck. Valarie Kaba RN, 02/11/2024 8:57 PM * Yoandy Magaña - 02/11/2024 11:28 AM CDTSummary: Care Coordination Assessment Care Coordination Assessment Expected DC Date: 02/16/2024 Social Information Boat Joiner Used: None needed Decision Maker at Admission: [...] addressed?: Not applicable Risks for Readmission: None estate manager will continue to follow until DC SUMMARY Patient lives with family Is patient OK with Post Acute placement? She does NOT have insurance for TCU/DMEs/HH. If she needs rehab, [facility] is the ONLY option. Patient says his/her PCP is: Marcela Vera MD [facility] notification sent via Care Everywhere * Dar Davis CO - 02/11/2024 11:19 AM CDT [facility] O&P Patient was seen to attempt TLSO evaluation. She will be receiving blood shortly and we will returntomorrow to re attempt TLSO evaluation. Amadeo Cheng STUDIO CAMERA OPERATOR Ananda O&P [phone] * Jake Pena MD - 02/11/2024 6:22 [...] elbow flex/ext. 5/5 wrist flex/ext. 5/5 hand business center representative. LUE: 5/5 shoulder abduction. 5/5 elbow flex/ext. 5/5 wrist flex/ext. 5/5 hand business center representative. Lower Extremities: RLE: 5/5 hip flexion. 5/5 [...] Results Component Value Date/Time INR 1.5 (H) 02/10/2024 1820 All imaging reviewed with the Neurosurgery chief [...] Henderson MD - 02/11/2024 12:00 [place] [address] [facility]#: [id number] PATIENT: NURIA FOX : 1950 DATE DICTATED: 02/11/2024 SURGERY STAFF DAILY PROGRESS NOTE DATE OF SERVICE: 02/11/2024 I saw and evaluated the patient. I discussed management with residents, SURVEILLANCE SYSTEM MONITOR, and PAs on the Neurosurgery team and [...] PhD Staff Physician Neurosurgery Service Received in Route Salesperson: 02/11/2024 19:49:06 M: /[id number] SC/MODL * Valarie Kaba RN - 02/10/2024 8:34 PM CDT Images from the original note were not included. TRANSFER IN NOTE D: Patient transferred in to [facility] from PACU at 2033. Patient condition on arrival: alert and orient x4. Pt sleepy, easily aroused. BP86/54, P85, RR18, T93.8 (axillary), O2 91%. Unable to maintain O2 above 95%. O2 85-95%, 2L NC cannula applied. C/o of pain. Daughters accompanied and at bedside. Patient Belonging 02/10/20242052 Patient or family informed of Patient Valuables and Belongings Policy (#[id number]): Policy reviewed - patient/family/designee has indicated that [...] due to O2 not maintaining above 95%. Notified. Pt resting comfortably at this time. P: Commence with cares per Care Plan and orders. Valarie Kaba RN * Lalit Ron MD - 02/10/2024 12:00 [place] [address] [facility]#: [id number] PATIENT: NURIA FOX : 1950 DATE DICTATED: 02/10/2024 SURGERY STAFF DAILY PROGRESS NOTE DATE OF SERVICE: 02/10/2024 I saw and evaluated the patient. I discussed management with residents, SURVEILLANCE SYSTEM MONITOR, and PAs on the Neurosurgery team and agree with documented findings and plan. Nuria is a 73-year-old, who Dr. Antoine took to surgery today for a T11 to S2 decompression and fusion. Hopefully, everything went well. Lalit Ron MD Staff Physician Neurosurgery Service Received in Route Salesperson: 02/10/2024 20:23:47 M: /[id number] TB/MODL documented in this encounter Consult Notes * Joya Montgomery, Adore - 02/17/2024 10:28 AM CDTAssociated Order(s): DISCHARGE MED REC FINAL REVIEW BY PHARMACY PHARMACY DISCHARGE NOTE Nuria Laina Bridget Aguilar : 1950 Sex: female Pharmacy service [...] please contact pharmacist on service at [facility] [phone]. If no response within needed timeframe, please contact central pharmacy via phone at [phone]. Planned discharge medications are: Medication List Medications Indications acetaminophen 325 mg tablet Commonly known as: TYLENOL Take 2 tablets (650 mg) by mouth every 4 hours as needed for Moderate Pain. amLODIPine 5 mg Tabs Commonly known as: NORVASC Take 1 tablet (5 mg) by mouth daily. BP's were softer during admission and this was held; OK to resume upon admission to [place] cyclobenzaprine 10 mg Commonly known as: FLEXERIL [...] (8.6 mg) by mouth twice daily. * Alnoso Blackman CWON - 02/16/2024 3:19 PM CDTAssociated Order(s): CONSULT TO WOUND NURSE Images from the original note were not included. Wound Ostomy Continence Nurse Consult Nuria Obrienjuan Aguilar - : 1950 - MR# [id number] - Date: 02/16/2024 Reason For Consultation: The patient is being seen in consultation at the request of recreation worker for evaluation of skin breakdown to right [...] PRN under brace. Consult Recommendations: Not applicable [facility] Nursing follow up: Appreciate the opportunity to consult on this patient, Wound Ostomy Continence Services will sign off at this time. Please place additional 'Wound Consult' if wanting further assessment for this patient. Staff to continue to follow skin injury bundle. Escalate concerns to WOCN through additional consult or to the provider when barriers are identified. WOCN available Thursday through Thursday on [employer] or [phone] Alonso Blackman CWON, 02/16/2024 3:22 PM * Juanita Sarabia MD - 02/15/2024 10:25 AM CDT Images from the original note were not included. Physical Medicine & Rehabilitation Consultation Patient Name: Nuria Aguilar : 1950 Medical Record: [id number] PRIMARY CARE PHYSICIAN: Marcela Vera MD REQUESTING PHYSICIAN: Tushar Antoine, * REASON FOR CONSULT: I was asked to evaluate this patient regarding their rehabilitation needs and appropriateness for acute rehabilitation. HISTORY OF PRESENT PROBLEM I personally reviewed the patient's medical record [place] [facility] [place] and, and summarized it belowin conjunction with the patient interview. Nuria Aguilar is a 73 y.o. female with HTN, chronic low back pain, degenerative scoliosis admitted [place] [facility] [place]10[place] for elective spinal fusion T11-S2, and [...] bed, no family at bedside. A video niuean interpreterwas used throughout the visit. She reports [...] low back pain, degenerative scoliosis admitted [place] [facility] [place]/10[place] for elective spinal fusion T11-S2, and [...] me with questions/concerns. Juanita Sarabia MD Staff Oil Dipper Available on As Seen on TV Total time spent on this encounter, on the date of service including pre-visit review of separatelyobtained history, fylq-uf-ipxm interaction performing medically appropriate physical exam, patient counseling/education, interpretation of diagnostic results, care coordination and documentation was 45 minutes. * Jesus, January C, PT - 02/14/2024 11:31 AM CDT PHYSICAL [...] coverage unless pt has other insurance besides [facility]. Patient presents with Pain, Impaired gait, Decreased [...] gait with walker, review brace management ongoing. COACH BUILDER Appropriate: Yes Participated in goal setting and treatment planning: Patient Agrees with goals and treatment plan: Patient - Yes. Jennifer Lee PT 02/14/2024 Pager: As Seen on TV PT Department * Destiny Bojorquez, OTR/L - 02/13/2024 11:12 AM CDT OCCUPATIONAL [...] TLSO scan Barriers to Learning: language barrier (non-ketchikan Nepali speaker) Rehab Potential: good ASSESSMENT: Pt s/p [id number] posterior segmental fusion with deformity correction and [...] allow scan to go around pt 360*. Plastic Machine Operator proceeded with eval in order to assist [...] minutes Self care/Home mgmt/ADL: 25 minutes Therapist: OLIVIA Scanlon Pager: Spreedly Occupational Therapy Department documented in this encounter [...] same PROCEDURES PERFORMED: Utilization of the frameless stealth navigational system [...] with extensive bilateral L4 and L5 foraminotomies [place] of local bone. Utilization of bone morphogenic protein. Extensive left L5 foraminotomy and JOSEPH type decompression. Complex procedure due to extremely small anatomy and very osteoporotic bone making this procedure take longer than usual. FINDINGS: E38-P5PT posterior segmental fusion with deformity correction and [...] [facility] low [facility] [...] to the S2 neural foramen, and a gppvg-yjon-mxokb trajectory was drilled with an orthopedic drill. This airplane pilot commercial hole was tapped, and pedicle sounding probe [...] process and pars. A 35 mm transpedicular airplane pilot commercial hole was drilled using stereotactic navigation, and pedicle sounding probe was used to ensure no cortical bony violation. The airplane pilot commercial hole was tapped, and pedicle sounding probe [...] Left inferior L5 facetectomy was performed with Whisk (formerly Zypsee) drill with AM-8 bit, and this bone [...] NOTE D: [facility] [facility]. A: (As documented in the Discharge Planning [...] Toe Head to Toe Assessment Shift Summary Prydeinig Speaking. Alert & oriented x 4, call light within reach, and can make needs known. Stand-by assist with a walker. Purewick used overnight. Midline back incision w/ sutures, open to air. TLSO required when HOB >30. Expected discharge to [place] today, 02/16. Kyra Jackson RN, 02/17/2024 10:38 [...] Address Phone [facility] [address] [place] [phone] Summary: Patient has been accepted to continue rehabing at the aforementioned post acute facility. Patient is on board with plan. Medical team is aware. They will work writing DC orders. A [employer] thread has been started. CC will continue to follow until DC. Please use [employer] for any further questions. * Interdisciplinary Note [...] receiving prn pain meds. Pt only speaks Prydeinig. Pt is on purewick overnight. Up to [...] Shift Summary Pt denies pain. Pt speaks Prydeinig. Stated pain is relieved after receiving prn [...] held. Steri strips placed, patient toleratedprocedure well. cigarette and filter chief inspector used. Emma Wesley PA-C, 02/16/2024 10:24 AM Neurosurgery Service [facility] * Nursing Assessment - Lexi Luo RN [...] Defined Limits * Nursing Assessment - Kate Abraham RN - 02/15/2024 7:55 PM CDT Nursing Assessment Head to Toe Head to Toe Assessment Shift Summary Pt. Is A&OX4 and able to make her needs known. Pt. Reported pain this shift in her lower back a7/10. PRN tylenol and oxycodone was given which provided relief. This teletypewriter operator called wrinkly this evening about pt.'s TLSO [...] and oriented x 4. Pleasant and cooperative. Prydeinig speaking. VSS and afebrile. Appetite good. Cares [...] makes needs known using call light appropriately. Prydeinig speaking. Neuro intact. VSS on 1L NC [...] Limits * Nursing Assessment - Nolberto Lozada, [place] - 02/14/2024 10:52 PM CDT Nursing Assessment Head to Toe Head to Toe Assessment Shift Summary Prydeinig speaking pt, reluctant of making needs known. [...] Defined Limits * Nursing Assessment - Leta Sanders RN - 02/14/2024 11:13 AM CDT Nursing Assessment Head to Toe Head to Toe Assessment Shift Summary Pt A&Ox 4. Prydeinig speaking.Pain rated 7/10 on surgical incision. Managed [...] Stool Color: dark brown (02/13/24 030) Genitourinary Assessment Within Defined Limits except for: [...] Assessment Shift Summary Pt alert and oriented, Prydeinig speaking, sleeping during the night, denies pain, [...] (02/13/24 0300) Genitourinary Within Defined Limits Comments: External female [...] Head to Toe Assessment Shift Summary Pt A&OX4.Prydeinig speaking. On 3L NC. Pain rated 4 [...] to Toe Assessment Shift Summary Pt is Prydeinig speaking and able to make her needs [...] this time. Will continue to monitor. 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 Pt remained in bed throughout the shift. Pt verbalized pain with movement. Pt had a BM this shift. No acute changes overnight. Follow establishedPOC. Missy Greenberg, RN, 02/13/2024 7:32 AM Neurologic/Cognitive Within Defined [...] to Toe Assessment Shift Summary Pt is Prydeinig speaking and is able to make her needs known. Island over dressing intact with some drainage. Hemovac drains intact and draining. Pt reports pain between 5-7 out of 10 but has not used TIN POT OPERATOR to give on demand dose. Mendieta removed [...] alert and oriented x 4 throughout shift. Prydeinig speaking, [facility] Boat Joiner used during assessments. Neuro's intact and unchanged. CADD pump in place. Pain mostly managed with pump. PRN IV Zofran given d/t c/o of nausea. Helpful. NS running 100ml/hr. Advanced diet to soft diet. Continue to monitor and follow POC. Valarie Kaba RN Neurologic/Cognitive Within Defined Limits Frequent Neuro Assessments have been documented in the flowsheets HEENT Within Defined Limits Cardiac Within Defined Limits Conditioner Tumbler - remote telemetry Comments: Soft BP Respiratory [...] alert and oriented x 4 throughout shift. Prydeinig speaking, [facility] Boat Joiner used during assessments. Neuro's intact and unchanged. [...] Within Defined Limits Cardiac Within Defined Limits Conditioner Tumbler - remote telemetry Comments: Soft BP Respiratory [...] bedside, and able to make needs known. Prydeinig speaking and family has just left the [...] Pt a/ox4, able to make needs known. Prydeinig speaking. Daughter at bedside. Advanced from clear [...] alert and oriented x 4 throughout shift. Prydeinig speaking, daughter at bedside, interpreting. Admission questions [...] Within Defined Limits Cardiac Within Defined Limits Conditioner Tumbler - remote telemetry Comments: Soft BP Respiratory [...] language. Motor: Follows commands x4 extremities, 4/5 business center representative strength bilaterally and 3/5 plantar/dorsiflexion bilaterally Sensory: Sensation intact in all 4 extremities Intake/Output Summary (Last 24 hours) at 02/11/2024 0618 Last data filed at 02/11/2024 0200 Gross per 24 hour Intake 9357 ml Output 6050 ml Net 3307 ml A/P: 73 y.o. female POD 0 s/p [id number] posterior segmental fusion with deformity correction and left insertion L5-S1 PLIF - Routine post-op cares - Serial neuro exams, q4h - SBP <140 - Pain control - Monitor incision site Juanita Alexander MD, 02/11/2024 6:18 AM EM PGY-2 * Op Note Immediate - Justus Fisher MD - 02/10/2024 8:38 AM CDT [facility] Immediate Post Operative Note Note written: Day of Surgery Patient Name: Nuria Aguilar ( ) OR Date: 02/10/2024 0730 Procedure(s) and Anesthesia Type: * SPINAL FUSION POST LUMBAR/THORACIC [id number] T11-S2/iliac crest fusion with posterior lumbar interbody [...] Implant Name Type Inv. Item Serial No. Volunteer Firefighter Lot No. LRB No. Used Action SCREW 6.5 X 40MM Screw/[place] SCREW 6.5 X 40MM [employer] SOFAMOR DANEK [id number] Unknown 1 Implanted SCREW [id number] 5/6 KERNS MAS 6.5X35 Screw/[place] SCREW [id number] 5/6 KERNS MAS 6.5X35 [employer] SOFAMOR DANEK [id number] Unknown 1 Implanted SCREW [id number] 5/6 KERNS MAS 6.5X35 Screw/[place] SCREW [id number] 5/6 KERNS MAS 6.5X35 [employer] SOFAMOR DANEK [id number] Unknown 1 Implanted SCREW [id number] 5/6 KERNS MAS 6.5X50 Screw/[place] SCREW [id number] 5/6 KERNS MAS 6.5X50 [employer] SOFAMOR DANEK [id number] Unknown 1 Implanted SCREW 6.5 X 45MM Screw/[place] SCREW 6.5 X 45MM [employer] SOFAMOR DANEK [id number] Unknown 1 Implanted SCREW SPINAL 5.5 X 35MM KERNS Screw/[place] SCREW SPINAL 5.5 X 35MM KERNS MEDTRON[employer] SOFAMOR DANEK [id number] Unknown 1 Implanted SCREW 5.5 X 40MM SCREW 5.5 X 40MM [employer] SOFAMOR DANEK [id number] Unknown 1 Implanted SCREW 6.5 X 40MM Screw/[place] SCREW 6.5 X 40MM [employer] SOFAMOR DANEK [id number] Unknown 1 Implanted SCREW [id number] 5/6 KERNS MAS 6.5X35 Screw/[place] SCREW [id number] 5/6 KERNS MAS 6.5X35 [employer] SOFAMOR DANEK [id number] Unknown 1 Implanted SCREW 5.5 X 40MM SCREW 5.5 X 40MM [employer] SOFAMOR DANEK [id number] Unknown 1 Implanted SCREW SPINAL 5.5 X 35MM KERNS Screw/[place] SCREW SPINAL 5.5 X 35MM KERNS [employer]TRON[employer] SOFAMOR DANEK [id number] Unknown 1 Implanted SCREW SPINAL 5.5 X 35MM KERNS Screw/[place] SCREW SPINAL 5.5 X 35MM KERNS [employer]TR[employer] SOFAMOR DANEK [id number] Unknown 1 Implanted SCREW 5.5 X 40MM SCREW 5.5 X 40MM [employer] SOFAMOR DANEK [id number] Unknown 1 Implanted MEDTRONIC SOFAMOR DANEK MEDTRONIC 13PG Unknown 1 Implanted ТАТЬЯНА, DBF 6CC [id number] Blood Bank Misc. ТАТЬЯНА, DBF 6CC [id number] [employer] SPINAL AND BIOLOGICS [id number] Unknown 1 Implanted INFUSE BMP LARGE II KIT [id number] Bone Graft INFUSE BMP LARGE II KIT [id number] MED[employer]IC [id number] Unknown 1 Implanted ALMAS SPINAL 5.5 STRAIG TITANIUM Almas ALMAS SPINAL 5.5 STRAIG TITANIUM [employer] SOFAMOR DANEK Unknown 2Implanted 5.5 6.0MM BREAK OFF TI SET SCREW 5.5 6.0MM BREAK OFF TI SET SCREW [employer] SOFAMOR DANEK Unknown 16 Implanted CROSSLINK 5.5 SMALL 10-42MM Screw/[place] CROSSLINK 5.5 SMALL 10-42MM [employer] SOFAMOR DANEK Unknown 2 Implanted MASTERGRAFT 36CM X 43CM [id number] Blood Bank Misc. MASTERGRAFT 36CM X 43CM [id number] MED[employer]IC [id number] Implanted BALLAST MEDTRONIC Unknown 2 Implanted CONNECTOR 5/6-6.0 TOP LAT 70 Connector CONNECTOR 5/6-6.0 TOP LAT 70 [employer]TR[employer]IC SOFAMOR DANEK Unknown2 Implanted Intraoperative Findings: [id number] posterior segmental fusion with deformity correction and [...] [facility] [address] [place] [address] Navi Verduzco PA-C [address] [address] 1, Isd-Prydeinig [address] [place] [phone] Scheduled Discharge Disposition: Discharged to home or self care (routine discharge) 03/28/2024 2:00 PM CDT Office Visit [facility] Final Rail Cutter [address] [place] [address] Marina Vasquez, [facility] [address] [place] [address] 1, Isd-Prydeinig [address] [place] [phone] Scheduled Discharge Disposition: Discharged to home or self care (routine discharge) 04/01/2024 11:30 AM CDT [facility]ointment [facility] Physical Therapy [address] [place] [address] Chandler Zuniga, DO [address] [place] [address] Nikki Delong, PT [address] [place] [address] 1, Isd-Prydeinig [address] [place] [address] Scheduled Discharge Disposition: Discharged to home or self care (routine discharge) 04/05/2024 1:00 PM CDT [facility]ointment [facility] [address] [place] [phone] Chandler Zuniga, DO [address] [place] [address] Nikki Delong, PT [address] [place] [address] 1, Isd-Prydeinig [address] [place] [address] Scheduled Discharge Disposition: Discharged to home or self care (routine discharge) 04/11/2024 11:00 AM CDT [facility]ointment [facility] [address] [address] Chadnler Zuniga, DO [address] [place] [address] Nikki Delong, PT [address] [place] [address] 1, Isd-Prydeinig [address] [place] [address] Scheduled Discharge Disposition: Discharged to home or [...] 9:35 AM CDT SPINAL FUSION POST LUMBAR/THORACIC [id number] Semi-Urgent (< 2 wks) 02/10/2024 7:25 AM [...] (ABNORMAL) POC GLUCOSE (02/15/2024 11:21 AM CDT) Pathologist [facility] POC Glucose 124(H) 70 - 100 mg/dL [facility] POINT OF CARE Blood 02/15/2024 11:2 1 AM CDT Tushar Antoine MD LABORATORY Performing Organization Address [facility] Co de Phone Number [facility] POINT OF CARE [address] [place], [place] [phone], * (ABNORMAL) POC GLUCOSE (02/15/2024 6:27 AM CDT) Pathologist [facility] POC Glucose 105(H) 70 - 100 mg/dL [facility] POINT OF CARE Blood 02/15/2024 6:27 AM CDT Tushar Antoine MD LABORATORY Performing Organization Address [facility] Co de Phone Number [facility] POINT OF CARE [address] [place] [phone], * (ABNORMAL) CBC WITH PLATELET (02/15/2024 5:46 AM CDT) Pathologist [facility] WBC 7.81 4.00 - 10.00 k/cmm [facility] RBC 2.80(L) 3.90 - 5.20 m/cmm [facility] Hgb 8.3(L) 11.5 - 15.7 g/dL [facility] Hematocrit 25.7(L) 34.0 - 45.0 % [facility] MCV 91.8 80.0 - 100.0 fL [facility] MCH 29.6 25.0 - 32.0 pg [facility] MCHC 32.3 31.0 - 36.0 g/dL [facility] RDW 15.3(H) 11.5 - 14.5 % [facility] Plt 162 150 - 400 k/cmm [facility] MPV 9.3 6.5 - 12.5 fL [facility] NRBC 0.4(H) 0.0 - 0.0 /100WBC [facility] Blood 02/15/2024 5:46 AM CDT 02/15/2024 5:54 AM CDT Tushar Antoine MD LABORATORY [facility] [address] [address] * XR SPINE THORACIC 2 VW UPRIGHT [...] CDT) WBC 10.75(H) 4.00 - 10.00 k/cmm [facility] RBC 2.98(L) 3.90 - 5.20 m/cmm [facility] Hgb 8.9(L) 11.5 - 15.7 g/dL [facility] Hematocrit 26.8(L) 34.0 - 45.0 % [facility] MCV 89.9 80.0 - 100.0 fL [facility] MCH 29.9 25.0 - 32.0 pg [facility] MCHC 33.2 31.0 - 36.0 g/dL [facility] RDW 15.5(H) 11.5 - 14.5 % [facility] Plt 123(L) 150 - 400 k/cmm [facility] MPV 10.1 6.5 - 12.5 fL [facility] NRBC 0.3(H) 0.0 - 0.0 /100WBC [facility] Blood 02/14/2024 5:50 AM CDT 02/14/2024 5:58 AM CDT Tushar Antoine MD LABORATORY [facility] [address] [address] * EXTRA TUBE - LIGHT GREEN (02/13/2024 6:48 AM CDT) LIGHT GREEN TUBE Stored [facility] Comment:Green tubes ([place] Heparin) are stored in the lab for 3 days from the collection date. Blood 02/13/2024 6:48 AM CDT 02/13/2024 6:48 AM CDT Tushar Antoine MD LABORATORY Performing Organization Address [facility]/ZIP Co de Phone Number [facility] [address] [address] * (ABNORMAL) CBC WITH PLATELET (02/13/2024 6:17 AM CDT) WBC 12.31(H) 4.00 - 10.00 k/cmm [facility] RBC 2.96(L) 3.90 - 5.20 m/cmm [facility] Hgb 8.8(L) 11.5 - 15.7 g/dL [facility] Hematocrit 26.2(L) 34.0 - 45.0 % [facility] MCV 88.5 80.0 - 100.0 fL [facility] MCH 29.7 25.0 - 32.0 pg [facility] MCHC 33.6 31.0 - 36.0 g/dL [facility] RDW 15.8(H) 11.5 - 14.5 % [facility] Plt 90(L) 150 - 400 k/cmm [facility] MPV 9.8 6.5 - 12.5 fL [facility] NRBC 0.2(H) 0.0 - 0.0 /100WBC [facility] Blood 02/13/2024 6:17 AM CDT 02/13/2024 6:27 AM CDT Tushar Antoine MD LABORATORY Performing Organization Address [facility] Co de Phone Number [facility] [address] [address] * (ABNORMAL) CBC WITH PLATELET (02/12/2024 8:27 AM CDT) WBC 12.49(H) 4.00 - 10.00 k/cmm [facility] RBC 3.04(L) 3.90 - 5.20 m/cmm [facility] Hgb 9.0(L) 11.5 - 15.7 g/dL [facility] Hematocrit 26.8(L) 34.0 - 45.0 % [facility] MCV 88.2 80.0 - 100.0 fL [facility] MCH 29.6 25.0 - 32.0 pg [facility] MCHC 33.6 31.0 - 36.0 g/dL [facility] RDW 15.9(H) 11.5 - 14.5 % [facility] Plt 81(L) 150 - 400 k/cmm [facility] MPV 9.8 6.5 - 12.5 fL [facility] NRBC 0.5(H) 0.0 - 0.0 /100WBC [facility] Blood 02/12/2024 8:27 AM CDT 02/12/2024 8:34 AM CDT Tushar Antoine MD LABORATORY [facility] [address] [address] * (ABNORMAL) PANEL BASIC METABOLIC (BMP) (02/12/2024 8:27 AM CDT) AnGap 5(L) 8 - 16 mEq/L [facility] Calcium 7.6(L) 8.8 - 10.2 mg/dL [facility] Chloride 107 92 - 108 mEq/L [facility] CO2 28 22 - 30 mEq/L [facility] Glucose 108(H) 70 - 100 mg/dL [facility] Creatinine 0.43(L) 0.50 - 1.00 mg/dL [facility] Sodium 140 135 - 148 mEq/L [facility] Potassium 3.7 3.5 - 5.3 mEq/L [facility] eGFR (2020 CKD-EPI) 103 >=60 ml/min/1.7 3m2 [facility] Comment: The estimated glomerular filtration rate (eGFR) was calculated using the CKD-EPI 2020 creatinine equation, which does not include race as a factor. This equation is validated in individuals 18 years of age and older, and eGFR is normalized to a body surface area of 1.73m^2. BUN 12 8 - 23 mg/dL [facility] Blood 02/12/2024 8:27 AM CDT 02/12/2024 8:34 AM CDT Tushar Antoine MD LABORATORY [facility] [address] [address] * (ABNORMAL) HEMOGLOBIN (02/11/2024 8:42 PM CDT) Hgb 8.9(L) 11.5 - 15.7 g/dL [facility] Blood 02/11/2024 8:42 PM CDT 02/11/2024 8:48 PM CDT Narrative [facility] - 02/11/2024 8:55 PM CDT After transfusion Tushar Antoine MD LABORATORY [facility] [address] [address] * RED BLOOD CELLS LEUKOCYTE REDUCED ADULT (BLOOD ADMIN) (02/11/2024 5:10 PM CDT) [facility] Unit Number [id number] [facility] Product Code [id number] [facility] Blood Expiration Date [id number] [facility] Blood Type 6200 [facility] Blood Type (TEXT) APOS [facility] Other 02/11/2024 5:10 PM CDT 02/11/2024 11:09 AM CDT Tushar Antoine MD BLOOD BANK DANNY LOVE (BLOOD ADMIN) [facility] [address] [address] * (ABNORMAL) PANEL BASIC METABOLIC (BMP) (02/11/2024 6:13 AM CDT) CO2 26 22 - 30 mEq/L [facility] Glucose 156(H) 70 - 100 mg/dL [facility] BUN 23 8 - 23 mg/dL [facility] Creatinine 0.90 0.50 - 1.00 mg/dL [facility] Calcium 8.0(L) 8.8 - 10.2 mg/dL [facility] Sodium 145 135 - 148 mEq/L [facility] Potassium 4.0 3.5 - 5.3 mEq/L [facility] Chloride 108 92 - 108 mEq/L [facility] eGFR (2020 CKD-EPI) 68 >=60 ml/min/1.7 3m2 [facility] Comment: The estimated glomerular filtration rate (eGFR) was calculated using the CKD-EPI 2020 creatinine equation, which does not include race as a factor. This equation is validated in individuals 18 years of age and older, and eGFR is normalized to a body surface area of 1.73m^2. AnGap 11 8 - 16 mEq/L [facility] Blood 02/11/2024 6:13 AM CDT 02/11/2024 6:31 AM CDT Tushar Antoine MD LABORATORY [facility] [address] [address] * (ABNORMAL) CBC WITH PLATELET (02/11/2024 6:13 AM CDT) WBC 7.61 4.00 - 10.00 k/cmm [facility] RBC 2.06(L) 3.90 - 5.20 m/cmm [facility] Hgb 6.2(AA) 11.5 - 15.7 g/dL [facility] Hematocrit 18.3(L) 34.0 - 45.0 % [facility] MCV 88.8 80.0 - 100.0 fL [facility] MCH 30.1 25.0 - 32.0 pg [facility] MCHC 33.9 31.0 - 36.0 g/dL [facility] RDW 17.3(H) 11.5 - 14.5 % [facility] Plt 111(L) 150 - 400 k/cmm [facility] MPV 9.9 6.5 - 12.5 fL [facility] Acanthocyte Slight [facility] Stippling Slight [facility] Blood 02/11/2024 6:13 AM CDT 02/11/2024 6:31 AM CDT Narrative [facility] - 02/11/2024 7:25 AM CDT Critical value for Hemoglobin electronically reported to and acknowledged by Justus Fisher MD in STN 1 at 02/11/2024 06:57:01 CDT by Shannan Birch MLS. Tushar Antoine MD LABORATORY [facility] [place] [address] * (ABNORMAL) POC GLUCOSE (02/10/2024 11:46 PM CDT) POC Glucose 198(H) 70 - 100 mg/dL [facility] POINT OF CARE Blood 02/10/2024 11:4 6 PM CDT Tushar Antoine MD LABORATORY [facility] POINT OF CARE [address] [place] [address] * (ABNORMAL) PANEL BASIC METABOLIC (BMP) (02/10/2024 9:15 PM CDT) Sodium 144 135 - 148 mEq/L [facility] Potassium 3.8 3.5 - 5.3 mEq/L [facility] Chloride 107 92 - 108 mEq/L [facility] CO2 22 22 - 30 mEq/L [facility] AnGap 15 8 - 16 mEq/L [facility] Glucose 216(H) 70 - 100 mg/dL [facility] BUN 13 8 - 23 mg/dL [facility] Creatinine 0.59 0.50 - 1.00 mg/dL [facility] Calcium 8.6(L) 8.8 - 10.2 mg/dL [facility] eGFR (2020 CKD-EPI) 95 >=60 ml/min/1.7 3m2 [facility] Comment: The estimated glomerular filtration rate (eGFR) was calculated using the CKD-EPI 2020 creatinine equation, which does not include race as a factor. This equation is validated in individuals 18 years of age and older, and eGFR is normalized to a body surface area of 1.73m^2. Blood 02/10/2024 9:15 PM CDT 02/10/2024 9:22 PM CDT Destiny Lopez PA-C LABORATORY [facility] [address] [address] * (ABNORMAL) CBC WITH PLATELET (02/10/2024 9:15 PM CDT) Pathologist [facility] WBC 7.38 4.00 - 10.00 k/cmm [facility] RBC 2.60(L) 3.90 - 5.20 m/cmm [facility] Hgb 7.5(L) 11.5 - 15.7 g/dL [facility] Hematocrit 23.3(L) 34.0 - 45.0 % [facility] MCV 89.6 80.0 - 100.0 fL [facility] MCH 28.8 25.0 - 32.0 pg [facility] MCHC 32.2 31.0 - 36.0 g/dL [facility] RDW 17.0(H) 11.5 - 14.5 % [facility] Plt 126(L) 150 - 400 k/cmm [facility] MPV 9.1 6.5 - 12.5 fL [facility] Blood 02/10/2024 9:15 PM CDT 02/10/2024 9:22 PM CDT Destiny Lopez PA-C LABORATORY [facility] [address] [address] * (ABNORMAL) POC GLUCOSE (02/10/2024 6:47 PM CDT) Pathologist [facility] POC Glucose 191(H) 70 - 100 mg/dL [facility] POINT OF CARE Blood 02/10/2024 6:47 PM CDT Tushar Antoine MD LABORATORY [facility] POINT OF CARE [address] [place] [phone] * (ABNORMAL) PROTHROMBIN (PT) & INR (02/10/2024 6:20 PM CDT) Pathologist [facility] PT 16.9(H) 9.0 - 12.5 sec [facility] INR 1.5(H) 0.8 - 1.1 [facility] Comment: Warfarin Therapeutic Range: Standard Intensity: 2.0 - 3.0 High Intensity: 2.5 - 3.5 Blood 02/10/2024 6:20 PM CDT 02/10/2024 7:10 PM CDT Darlene M Cory GUERRERO, [employer] LABORATOR Y Performing Organization Address City[facility] Co de Phone Number [address] [address] * (ABNORMAL) CBC WITH PLATELET (02/10/2024 6:20 PM CDT) [facility] WBC 6.63 4.00 - 10.00 k/cmm [facility] [facility] RBC 2.47(L) 3.90 - 5.20 m/cmm [facility] Hgb 7.4(L) 11.5 - 15.7 g/dL [facility] Hematocrit 22.6(L) 34.0 - 45.0 % [facility] MCV 91.5 80.0 - 100.0 fL [facility] MCH 30.0 25.0 - 32.0 pg [facility] MCHC 32.7 31.0 - 36.0 g/dL [facility] RDW 16.0(H) 11.5 - 14.5 % [facility] Plt 119(L) 150 - 400 k/cmm [facility] MPV 9.2 6.5 - 12.5 fL [facility] Blood 02/10/2024 6:20 PM CDT 02/10/2024 7:10 PM CDT Darlene Ray APRN, HIGH SCHOOL SCIENCE TEACHER LABORATOR Y Performing Organization Address [facility] Co de Phone Number [address] [address] * XR SPINE LUMBAR 1 VIEW (02/10/2024 [...] ADMIN) (02/10/2024 4:56 PM CDT) Unit Number [id number] [facility] Product Code [id number] [facility] Blood Expiration Date [id number] [facility] Blood Type 6200 [facility] Blood Type (TEXT[facility] APOS [facility] CRYO Ready Product Ready [facility] Other 02/10/2024 4:56 PM CDT 02/10/2024 4:47 PM CDT Narrative [facility] - 02/10/2024 4:56 PM CDT 1 unit is equivalent to a pool of 5 whole blood derived cryo. Is a signed informed consent on file: Yes-on file Reason for transfusion: FIBRINOGEN LESS THAN 100 MG/DL 1 Units Laron Brown MD BLOOD BANK ORDERABL ES (BLOOD ADMIN) [facility] [address] [address] * PLATELETS ADULT (BLOOD PRODUCT) (BLOOD ADMIN) (02/10/2024 4:48 PM CDT) Unit Number [id number] [facility] Product Code [id number] [facility] Blood Expiration Date [id number] [facility] Blood Type 6200 [facility] Blood Type (TEXT) APOS [facility] PLT Ready Product Ready [facility] Other 02/10/2024 4:48 PM CDT 02/10/2024 4:47 PM CDT Narrative [facility] - 02/10/2024 4:49 PM CDT One [...] ORDERABL ES (BLOOD ADMIN) Performing Organization Address [facility] de Phone Number [facility] [address] [address] * FRESH FROZEN PLASMA ADULT (BLOOD ADMIN) (02/10/2024 4:45 PM CDT) Unit Number [id number] [facility] Product Code [id number] [facility] Blood [facility]piration Date [facility] Blood Type 6200 [facility] Blood Type (TEXT) APOS [facility] Other 02/10/2024 4:45 PM CDT 02/10/2024 4:43 PM CDT Laron Brown MD BLOOD BANK ORDERABL ES (BLOOD ADMIN) Performing Organization Address [facility] Co de Phone Number [facility] [address] [address] * (ABNORMAL) POC CG8 ART (02/10/2024 4:34 PM CDT) Sodium 145 135 - 148 mEq/L [facility] [place] [facility] Potassium 3.5 3.5 - 5.3 mEq/L [facility] [place] [facility] Glucose 151(H) 70 - 100 mg/dL [facility] POINT OF CARE ICA, Measured 4.9 4.4 - 5.2 mg/dL [facility] OF CARE PH Art 7.33(L) 7.35 - 7.45 [facility] [place] [facility] PCO2 Art 35 35 - 45 mmHg [facility] [place] [facility] PO2 Art 181(H) 75 - 85 mmHg [facility] TCO2 Art 19(L) 22 - 30 mEq/L [facility] OF CARE Bicarb Art 18(L) 22 - 26 mEq/L [facility] OF CARE Base Exc Art -8.0 -10.0 - 2.0 mEq/L [facility] POINT OF CARE O2 Sat Art 100(H) 96 - 99 % [facility] Blood 02/10/2024 4:34 PM CDT Tushar Antoine MD LABORATORY Performing Organization Address [facility]/ZIP Co de Phone Number [facility] CARE [address] [place] [address], * (ABNORMAL) POC HEMOGLOBIN(AUTOMATED) (02/10/2024 4:33 PM CDT) Hgb 8.9(L) 11.5 - 15.7 g/dL [facility] POINT OF CARE Blood 02/10/2024 4:33 PM CDT Tushar Antoine MD LABORATORY Performing Organization Address [facility] Co de Phone Number [facility] POINT OF CARE [address] [place] [address], * (ABNORMAL) PROTHROMBIN (PT) & INR (02/10/2024 4:13 PM CDT) PT 19.6(H) 9.0 - 12.5 sec [facility] INR 1.7(H) 0.8 - 1.1 [facility] Comment: Warfarin Therapeutic Range: Standard Intensity: 2.0 - 3.0 High Intensity: 2.5 - 3.5 Blood 02/10/2024 4:13 PM CDT 02/10/2024 4:13 PM CDT Brant Santoro MD LABORATORY Performing Organization Address City/[facility]/ZIP Co de Phone Number [facility] [place] [address] * (ABNORMAL) PTT (APTT) (02/10/2024 4:13 PM CDT) Pathologist [facility] APTT 44.5(H) 25.0 - 37.0 sec [facility] Blood 02/10/2024 4:13 PM CDT 02/10/2024 4:13 PM CDT Brant Santoro MD LABORATORY Performing Organization Address [facility] Co de Phone Number [facility] [address] [address] * (ABNORMAL) FIBRINOGEN (02/10/2024 4:13 PM CDT) [facility] Fibrinogen 80(AA) 200 - 400 mg/dL [facility] Blood 02/10/2024 4:13 PM CDT 02/10/2024 4:13 PM CDT Narrative [facility] - 02/10/2024 4:39 PM CDT Critical value for fibrinogen called to and read back by Jarett Singh Nurse Loading Machine Operator Helper in OR at 02/10/2024 16:39:30 CDT by Lani Esquivel MLS. Brant Santoro MD LABORATORY Performing Organization Address [facility] Co de Phone Number [facility] [address] [address] * (ABNORMAL) CBC WITH PLATELET (02/10/2024 4:13 PM CDT) Pathologist [facility] WBC 8.50 4.00 - 10.00 k/cmm [facility] RBC 3.18(L) 3.90 - 5.20 m/cmm [facility] Hgb 9.4(L) 11.5 - 15.7 g/dL [facility] Hematocrit 28.2(L) 34.0 - 45.0 % [facility] MCV 88.7 80.0 - 100.0 fL [facility] MCH 29.6 25.0 - 32.0 pg [facility] MCHC 33.3 31.0 - 36.0 g/dL [facility] RDW 15.7(H) 11.5 - 14.5 % [facility] Plt 60(L) 150 - 400 k/cmm [facility] MPV 9.2 6.5 - 12.5 fL [facility] Blood 02/10/2024 4:13 PM CDT 02/10/2024 4:13 PM CDT Brant Santoro MD LABORATORY Performing Organization Address [facility]/ZIP Co de Phone Number [facility] [address] [address] * RED BLOOD CELLS LEUKOCYTE REDUCED ADULT (BLOOD ADMIN) (02/10/2024 4:00 PM CDT) Unit Number [id number] [facility] Product Code [id number] [facility] Blood Expiration Date [id number] [facility] Blood Type 6200 [facility] Blood Type (TEXT) APOS [facility] Other 02/10/2024 4:00 PM CDT 02/10/2024 2:04 PM CDT Elizabeth Jensen MD BLOOD BANK ORDERAB LES (BLOOD ADMIN) Performing Organization Address [facility] Co de Phone Number [address] [address] * (ABNORMAL) POC CG8 ART (02/10/2024 3:19 PM CDT) Sodium 142 135 - 148 mEq/L [facility] Potassium 3.8 3.5 - 5.3 mEq/L [facility] Glucose 178(H) 70 - 100 mg/dL [facility]ARE ICA, Measured 4.9 4.4 - 5.2 mg/dL [facility] PH Art 7.33(L) 7.35 - 7.45 [facility] [place] [facility] PCO2 Art 42 35 - 45 mmHg [facility] [place] [facility] PO2 Art 215(H) 75 - 85 mmHg [facility] [place] [facility] TCO2 Art 24 22 - 30 mEq/L [facility] Bicarb Art 22 22 - 26 mEq/L [facility] Base Exc Art -3.0 -10.0 - 2.0 mEq/L [facility] O2 Sat Art 100(H) 96 - 99 % [facility] Blood 02/10/2024 3:19 PM CDT Tushar Antoine MD LABORATORY Performing Organization Address [facility] Co de Phone Number [facility] POINT OF CARE [address] [place] [address] * POC HEMOGLOBIN(AUTOMATED) (02/10/2024 3:17 PM CDT) Hgb 11.5 11.5 - 15.7 g/dL [facility] POINT OF [facility] Blood 02/10/2024 3:17 PM CDT Tushar Antoine MD LABORATORY Performing Organization Address [facility] de Phone Number [facility] POINT OF CARE [address] [place] [address], * RED BLOOD CELLS LEUKOCYTE REDUCED ADULT (BLOOD ADMIN) (02/10/2024 2:00 PM CDT) Unit Number [id number] [facility] Product Code [id number] [facility] Blood Expiration Date [id number] [facility] Blood Type 6200 [facility] Blood Type (TEXT) APOS [facility] Other 02/10/2024 2:00 PM CDT 02/10/2024 8:33 AM CDT Elizabeth Jensen MD BLOOD BANK ORDERAB LES (BLOOD ADMIN) Performing Organization Address [facility] Co de Phone Number [facility] [address] [address] * (ABNORMAL) POC HEMOGLOBIN(AUTOMATED) (02/10/2024 1:54 PM CDT) Hgb 6.7(LL) 11.5 - 15.7 g/dL [facility] POINT OF CARE Blood 02/10/2024 1:54 PM CDT Tushar Antoine MD LABORATORY Performing Organization Address [facility]/ZIP Co de Phone Number [facility] POINT OF [facility] [address] [place] [address], [place] * (ABNORMAL) POC HEMOGLOBIN(AUTOMATED) (02/10/2024 12:49 PM CDT) Hgb 9.2(L) 11.5 - 15.7 g/dL [facility] POINT [facility] Blood 02/10/2024 12:4 9 PM CDT Tushar Antoine MD LABORATORY Performing Organization Address [facility] Co de Phone Number [facility] POINT OF [facility] [address] [place] [address], [place] * XR O ARM 0-1 HR [...] navigation was performed. Procedure Note Armando Drummond, DO - 02/10/2024 Technique: XR SPINE LUMBAR 2/3V AP/LAT/L5* Indication:T11-S2 fusion. Comparison:AP and lateral views of the lumbar spine dated 12/24/2021. Fluoroscopy time:1.3 seconds Dose:0.87 mGy Multi-Plane Imaging CTDI: 52.35 x2 mGy DLP: 1674.49 (mGycm) Findings: Fluoroscopy time and spot-film imaging was provided to the OR.Spot images show postsurgical changes of posterior spinal fusion [id number]. No radiologist was present. Computer assisted surgical [...] POC Glucose 107(H) 70 - 100 mg/dL [facility] [place] [facility] Blood 02/10/2024 6:16 AM CDT Tushar Antoine MD LABORATORY [facility] [place] [facility] [address] [place] [address] * ANTIBODY SCREEN (02/10/2024 6:15 AM CDT) Kary Screen Negative [facility] Blood 02/10/2024 6:15 AM CDT 02/10/2024 6:34 AM CDT Lucho Piotr [facility] TRANSFUSI ON SERVICES Performing Organization Address [facility]/ZIP Co de Phone Number [facility] [place] [address] * BLOOD TYPING-ABO/RH (02/10/2024 6:15 AM CDT) Pathologist [facility] ABORHG A POS [facility] Blood 02/10/2024 6:15 AM CDT 02/10/2024 6:34 AM CDT Lucho Piotr [facility] TRANSFUSI ON SERVICES Performing Organization Address [facility] Co de Phone Number [facility] [place] [address] * (ABNORMAL) PANEL BASIC METABOLIC (BMP) (02/10/2024 6:15 AM CDT) Sodium 140 135 - 148 mEq/L [facility] Potassium 3.8 3.5 - 5.3 mEq/L [facility] Chloride 105 92 - 108 mEq/L [facility] CO2 26 22 - 30 mEq/L [facility] AnGap 9 8 - 16 mEq/L [facility] Glucose 95 70 - 100 mg/dL [facility] BUN 15 8 - 23 mg/dL [facility] Creatinine 0.48(L) 0.50 - 1.00 mg/dL [facility] Calcium 9.6 8.8 - 10.2 mg/dL [facility] eGFR (2020 CKD-EPI) 100 >=60 ml/min/1.7 3m2 [facility] Comment: The estimated glomerular filtration rate (eGFR) was calculated using the CKD-EPI 2020 creatinine equation, which does not include race as a factor. This equation is validated in individuals 18 years of age and older, and eGFR is normalized to a body surface area of 1.73m^2. Blood 02/10/2024 6:15 AM CDT 02/10/2024 8:11 AM CDT Elizabeth Jensen MD LABORATORY Performing Organization Address [facility]/ZIP Co de Phone Number [facility] [address] [address] * (ABNORMAL) CBC WITH PLATELET (02/10/2024 6:15 AM CDT) WBC 6.74 4.00 - 10.00 k/cmm [facility] RBC 4.41 3.90 - 5.20 m/cmm [facility] Hgb 13.4 11.5 - 15.7 g/dL [facility] Hematocrit 40.2 34.0 - 45.0 % [facility] MCV 91.2 80.0 - 100.0 fL [facility] MCH 30.4 25.0 - 32.0 pg [facility] MCHC 33.3 31.0 - 36.0 g/dL [facility] RDW 14.6(H) 11.5 - 14.5 % [facility] Plt 290 150 - 400 k/cmm [facility] MPV 9.9 6.5 - 12.5 fL [facility] Blood 02/10/2024 6:15 AM CDT 02/10/2024 8:11 AM CDT Elizabeth Jensen MD LABORATORY Performing Organization Address [facility] Co de Phone Number [facility] [address] [address] documented in this encounter Visit Diagnoses Diagnosis Scoliosis of lumbar spine, unspecified scoliosis type- Primary Scoliosis of lumbar region due to degenerative disease of spine in adult documented in this encounter Administered Medications Inactive [...] Given 02/16/2024 6:34 AM CDT 650 mg bacitracin 500 unit/g external ointment INTRA-OP ONCE PRN, Starting on Thu02/10/24 at 1826, Until Thu02/10/24 at 184 Given 02/10/2024 6:26 PM CDT 1 Package Incis ion CEFAZOLIN (ANCEF) 1 G IN NACL 1000 ML IRRIGATION BOTTLE INTRA-OP ONCE PRN, Starting on Thu02/10/24 at 0913, Until Thu02/10/24 at 184 Given 02/10/2024 8:00 AM CDT 1,000 mg Incis ion cepacol 1 lozenge mouth/throat 1 lozenge, Oral, [...] AM CDT 30 mg Ab dominal Tissue heparin 30,000 unit in NACL0.9% 1000ml (CELLSAVER) Irrigation Bag 250 mL, INTRA-OP ONCE PRN, Starting on Thu02/10/24 at 0900, Until Thu02/10/24 at 184 Given 02/10/2024 2:52 PM CDT 30,000 UNITS Other (comment) Given 02/10/2024 1:12 PM CDT 30,000 UNITS Other (comment) Given 02/10/2024 9:03 AM CDT 30,000 UNITS Other (comment) lidocaine 1%-EPINEPHrine (1:100,000) injection INTRA-OP ONCE PRN, Starting on Thu02/10/24 at 0828, Until Thu02/10/24 at 1843 Given 02/10/2024 8:28 AM CDT 20 mL Incis ion ondansetron (ZOFRAN) 4 mg/2 mL injection 4 [...] Given 02/16/2024 8:26 AM CDT 8.6 mg thrombin (THROMBIN-JMI) solution INTRA-OP ONCE PRN, Starting on Thu02/10/24 at 0725, Until Thu02/10/24 at 1843 Given 02/10/2024 4:03 PM CDT 5,000 UNITS Inc ision Given 02/10/2024 2:43 PM CDT 5,000 UNITS I ncision Given 02/10/2024 2:10 PM CDT 5,000 UNITS I ncision documented in this encounter Active and Recently [...] Collazo RN)1527 (Infusion completed - Provider: Kate Abraham, [place])2205 (New Bag - Provider: Lexi Luo, [place])2311 (Infusion completed - Provider: Lexi Luo, RN) 0634 (New Bag - Provider: Lexi Luo, [place])0720 (Infusion completed - Provider: Lobo Gallardo, [place]) DC MED REC REVIEW BY PHARMACY(Linked Group [...] Until Discontinued 0859 (Given - Provider: Judy Reyes, [place]) 0826 (Given - Provider: Lobo Gallardo RN) 0800 (Given - Provider: yKra Jackson RN) polyethylene glycol 3350 (MIRALAX;GLYCOLAX) packet 17 g 17 g, Oral, DAILY, First dose on Brittany 24 at 0800, Until Discontinued 0859 (Given - Provider: Judy Reyes, [place]) 0826 (Given - Provider: Lobo Gallardo, RN) 08 (Given - Provider: Kyra Jackson, [place]) sennosides (SENOKOT) tablet 8.6 mg 8.6 mg, Oral, BID, First dose (after last modification) on Thu02/16/24 at 0800, Until Discontinued 08 (Given - Provider: Lobo Gallardo RN)221 (Given - Provider: Lexi Luo, [place]) 08 (Given - Provider: Kyra Jackson, [place]) Continuous Medication Order 02/15/2024 02/16/2024 02/17/2024 NaCl 0.9% infusion at 100 mL/hr, Intravenous, CONTINUOUS, Starting on Thu02/10/24 at 2105, Until Thu02/11/24 at 0947 PRN Medication Order 02/15/2024 02/16/2024 02/17/2024 acetaminophen (TYLENOL) tablet 650 mg 650 mg, Oral, Q4H PRN, Starting on Thu02/10/24 at 2104, Until Thu02/17/24 at 1334, Mild Pain (Use First) 0301 (Given - Provider: Juana Johns RN)0859 (Given - Provider: Judy Reyes RN)1622 (Given - Provider: Kate Abraham RN)2158 (Given - Provider: Lexi Luo, [place]) 0634 (Given - Provider: Lexi Lou, [place])221 (Given - Provider: Lexi Luo RN) 0803 (Given - Provider: Kyra Jackson, [place]) bisacodyl (DULCOLAX) suppository 10 mg 10 mg, [...] (Use Second) 0301 (Given - Provider: Juana Johns RN)1622 (Given - Provider: Kate Abraham RN)2158 (Given - Provider: Lexi Luo RN) 0633 (Given - Provider: Lexi Luo RN)1502 (Given - Provider: Lobo Gallardo RN)2216 (Given - Provider: Lexi Luo RN) 0803 (Given - Provider: Kyra Jackson RN) Linked Groups Order Group 1: DC MED REC REVIEW BY PHARMACYJump to med Discharge Date: 02/17/2024, Discharge Location: Subacute Rehab, Anticipated Discharge Time: Before 10 am, Discharge Medication Orders: DC Med Orders Final, Does not apply, PROTOCOL, Starting on Thu02/16/24 at 1039, Until 02/17/24 at 1334 And Discharge Med Rec Final [...] Depression Total Score: 5 11/02/19 9:12 AM COMMUNITY RELATIONS LIAISON PHQ-2 Depression Total Score: 1 11/02/19 9:12 AM COMMUNITY RELATIONS LIAISON documented as of this encounter Care Teams Dye Range Feeder Relationship Specialty Start Date End Date Marcela Vera MD [address] [place] [address] [address] [place] [address] PCP - General Family Medicine 12/10/21 Nolberto Campos, ISHAAN [address] [place] [id number] Physical Therapist Physical Therapy 12/11/21 documented as of this encounter
--- OUTSIDE RECORDS SUMMARY | 2024-03-26 21:02 | XMS_ITS | Encounter Summary ---
Author Organization [facility] Address [address] [facility] [place] [address] Phone Care Team Providers Care Solar Photovoltaic Crew Lead Name Role Phone Marcela Vera MD Primary Care Provider [phone]- [phone] Nolberto Campos PT Unavailable [phone] Encounter Details Date Type Department Care Team (Late st Contact Info) Description 02/08/2024 Documentation Only [facility] [address] [address] Susanna Cano [address] [facility] [place] [address] Social History Tobacco Use Types Packs/Day Years [...] Sex Assigned at Female 11/05/2021 8:07 PM ASSISTANT COACH Gender Identity Female 11/05/2021 8:07 PM ASSISTANT COACH Sexual Orientation Straight 11/05/2021 8: 07 PM ASSISTANT COACH documented as of this encounter Progress Notes * Susanna Cano - 02/08/2024 11:37 AM CDTSummary: SURGERY PREP Prior Auth: Approved Provider: Arash DOS: 02/09 Procedure: SPINAL FUSION POST LUMBAR/THORACIC W/[id number] T11-S2/iliac crest fusion with posterior lumbar interbody fusion Special Order: BMP APPROVED DME Order: faxed to Ananda [phone] Pre-op H&P: Primary Surgery Instructions: 01/31 COVID Screen: N/A Post ops scheduled: YES Consent: To be done the day of surgery Case entered in Epic: YES Case entered on Calendar: YES Confirmation letter sent YES Pt understands surgery may be rescheduled due to emergent add on surgeries. All patient's questions and concerns were answered and patient agrees with the above. documented in this encounter Plan of Treatment Upcoming Encounters Date Type Department Care Team (Late st Contact Info) Description 03/28/2024 1:00 PM CDT [facility] [address] [place] [address] Navi Verduzco PA-C [address] [place] [phone] 1, Isd-Cymraes [address] [place] [address] Scheduled Discharge Disposition: Discharged to home or self care (routine discharge) 03/28/2024 2:00 PM CDT Office [facility] Professor Of Anthropology [address] [place] [address] [phone] Marina Vasquez LICSW [address] [place] [address] [phone] 1, Isd-Cymraes [address] [place] [address] Scheduled Discharge Disposition: Discharged to home or self care (routine discharge) 04/01/2024 11:30 AM CDT [facility]ointment [facility] Physical Therapy [address] [place] [address] Chandler Zuniga, [address] [address] Nikki Delong, PT [address] [place] [phone] 1, Isd-Cym[facility] [address] [place] [address] Scheduled Discharge Disposition: Discharged to home or self care (routine discharge) 04/05/2024 1:00 PM CDT [facility]ointment [facility] Physical Therapy [address] [place] [address] Chandler Zuniga, [address] [address] Nikki Delong, PT [address] [place] [phone] 1, Isd-Cymraes [address] [place] [address] Scheduled Discharge Disposition: Discharged to home or self care (routine discharge) 04/11/2024 11:00 AM CDT [facility]ointment [facility] Physical Therapy [address] [place] [address] Chandler Zuniga, [address] [address] Nikki Delong, PT [address] [place] [phone] 1, Isd-Cymra[facility] [address] [place] [address] Scheduled Discharge Disposition: Discharged to home or self care (routine discharge) documented as of this encounter Visit Diagnoses Not on filedocumented in this encounter Additional Health Concerns Assessment Noted Time PHQ-9 Depression Total Score: 5 11/02/19 9:12 AM ASSISTANT COACH PHQ-2 Depression Total Score: 1 11/02/19 9:12 AM ASSISTANT COACH documented as of this encounter Care Teams Solar Photovoltaic Crew Lead Relationship Specialty Start Date End Date Marcela Vera MD [address] [facility] [address] [place] [address] PCP - General Family Medicine 12/10/21 Nolberto Campos, PT [address] [place] [address] Physical Therapist Physical Therapy 12/11/21 documented as of this encounter
--- OUTSIDE RECORDS SUMMARY | 2024-03-26 21:02 | XMS_ITS | Encounter Summary ---
Author Organization [facility] Address [address] [place] [place] [address] Phone Care Team Providers Care Java Sdet Name Role Phone Marcela Vera MD Primary Care Provider [phone]- [phone] Nolberto Campos PT Unavailable [phone] Reason for Visit * Auth/Cert (Routine) Specialty Diagnoses / Procedures Referred By Contac t Referred To Contact SURGERY Diagnoses Scoliosis of lumbar region due to degenerative disease of spine in adult Scoliosis of lumbar region due to degenerative disease of spine in adult Procedures SPINAL FUSION POST LUMBAR/THORACIC W/[id number] Ovalle MD [address] [place] [address] [address] [place] [address] Referral ID Status Reason Start Date Expiration Date Visits Re quested Visits Authorized [id number] 1 1 Encounter Details Date Type Department Care Team (Late st Contact Info) Description 02/10/2024 7:35 AM CDT Anesthesia Event OR P4 [address] [place] [address] Laron Brown MD [address] [facility] [place] [address] Elizabeth Jensen MD [address] [place] [address] Anesthesia Record Procedure Summary Procedure Name Responsible Anesthesiologist Anesthesia Start Time Anesthesia Stop Time SPINAL FUSION POST LUMBAR/THORACIC W/[id number] T11-S2/iliac crest fusion with posterior lumbar interbody fusion and cell saver (Unknown: Back Lower) Laron Brown MD 02/10/24 0735 02/10/24 1854 Events Date Time Event Comment 02/10/2024 0710 Anesthetic plan discussed with Anesthesiologist 0710 Pre-op End 0735 An Start 0735 An Start Data 0735 IOPAE The intraoperat sharifa pre-anesthetic evaluation was completed with no changes noted from the pre-operative anesthesia evaluation. 0740 An Induction 0747 An Intubation 0751 an navi now 1024 Quick Note EKG reading robin ble counting heart rate 1046 An Data Art Transducer disr upted and level too low 1149 An Data Art Double counting EKG, switched, lead control. 1205 Quick Note Hemocue 9.2 1353 Quick Note Hemocue 6.7 1518 Quick Note Hgb 11.5 ABG WN L 1633 Quick Note Hemocue 8.9 1638 Quick Note INR 1.7 Fibinog en 80 Platelets 60 1641 Quick Note FFP ok per Karyn cich 1648 Quick Note Cryo/Platelets also per Galicich 1830 An Emergence 1837 Extubation 1854 An Stop 1855 an stop data Meds Name Total fentaNYL (SUBLIMAZE) 100 mcg/ 2 mL injec tion 100 mcg lidocaine 2% injection 40 mg propofol (DIPRIVAN) injection 90 mg rocuronium (ZEMURON) injection 45 mg phenylephrine 100 mcg/mL syringe 50 mcg dexamethasone (DECADRON) 4 mg/mL injecti on 10 mg ondansetron (ZOFRAN) injection 4 mg REMIfentanil (ULTIVA) 2,000 mcg syringe for infusion 1.8 mg phenylephrine (BEATRIZ-SYNEPHRINE) injection 14.81 mg ceFAZolin (ANCEF) 2 g IVPB 6 g ePHEDrine 25 mg/5 mL syringe 75 mg calcium chloride injection 2,000 mg furosemide (LASIX) IV 10 mg HYDROmorphone (DILAUDID) 1 mg/mL injecti on 0.75 mg lactated ringers infusion 3,100 mL plasma-lyte A infusion 2,000 mL albumin human 5% 1,250 mL * Agents No agents on file. * Blood No blood administrations on file. Lines, Drains, and Airways Type Details Placement Removal Wound 02/10/24; 0803; N; Incision; Back 02/10/24 0803 by Yohan Andrews RN Peripheral IV 02/10/24; 0653; No; 20 gauge; Left; Forearm; 1; 02/17/24; 1515 02/10/24 0653 by Holly Pittman RN 02/17/24 1515 by Lakshmi Castro RN Urinary Catheter 02/10/24; 0745; OR P jack >2hrs; 16; indwelling double lumen catheter; 10 mL; Placed in OR; 02/12/24; 1302 02/10/24 0745 by Lani Madrid RN 02/12/24 1302 by Gerri Davis [facility] Endotracheal Tube: 02/10/24; 0819 (crea gregorio via procedure documentation); 7; 02/10/24; 1847 02/10/24 0819 by Anaya Willis, SRNA 02/10/24 1847 by Laurie Duckworth APRN, CRNA Peripheral IV 02/10/24; 0820 (crea gregorio via procedure documentation); 20 gauge; Left; Hand; 02/11/24; 1000 02/10/24 0820 by Anaya Willis, SRNA 02/11/24 1000 by Sylvie Haynes RN Drain 02/10/24; 1803; Back ; Left; 1; collapsible closed device; Placed in OR; 02/15/24; 1400 02/10/24 1803 by Yohan Andrews RN 02/15/24 1400 by Lexi Luo RN Drain 02/10/24; 1804; Back ; Right; 2; collapsible closed device; Placed in OR; 02/16/24; 1030 02/10/24 1804 by Yohan Andrews RN 02/16/24 1030 by Chau Leiva RN documented in this encounter Social History Tobacco Use Types Packs/Day Years [...] Sex Assigned at Female 11/05/2021 8:07 PM FURNACE PROCESS SUPERVISOR Gender Identity Female 11/05/2021 8:07 PM FURNACE PROCESS SUPERVISOR Sexual Orientation Straight 11/05/2021 8: 07 PM FURNACE PROCESS SUPERVISOR documented as of this encounter OR Notes * Anesthesia Postprocedure Evaluation - Laron Brown MD - 02/10/2024 8:43 PM CDT Anesthesia Post Eval Patient: Alondra Aguilar Procedure(s) Performed: SPINAL FUSION POST LUMBAR/THORACIC W/[id number] T11- S2/iliac crest fusion with posterior lumbar interbody fusion and cell saver (Unknown: Back Lower) I've examined the patient and determined that he[facility] is medically stable [facility] Anesthesia type: General () Patient location: PACU Patient status: Post-procedure vital signs reviewed and stable Level of Consciousness: Awake Post-op pain: Adequate Respiratory: Stable Cardiovascular: Stable PONV status: none Fluid status: Acceptable Last Vitals: Vitals Value Taken Time BP 86/54 02/10/242033 Temp 34.3 ??C (93.8 ??F) 02/10/242033 Pulse 85 02/10/242033 Resp 18 02/10/242033 SpO2 99 % 02/10/242042 Vitals shown include unfiled device data. * Anesthesia Procedure Notes - Anaya Willis SRNA - 02/10/2024 8:19 AM CDT Associated Order(s): IV Placement IV Placement Procedure Notes: (Type: Surgical Anesthesia) IV Site: left, hand Needle size: 20 G gauge IV attempts: 1 Unsuccessful Attempts Location(s): left hand Difficult IV access: No Performed by: Other: [id number] ANAYA WILLIS [id number] * Anesthesia Procedure Notes - Anaya Willis SRNA - 02/10/2024 8:17 AM CDT Associated Order(s): Intubation/Airway AIRWAY/INTUBATION PROCEDURE GlideScope (Type: Surgical Anesthesia) Process/Method: sedated and paralyzed Indications for procedure: surgery Assessment: C-spine unstable, TMD >3 finger breadths and vocal cords open and clear Preoxygenation: BVM Device Device used: Glidescope Supporting device: Blade size: 3 The patient was intubated with a 7.0 mm standard endotracheal tube inflated to seal and secured at 18 cm to Lips Grade: I Narrative 1 intubation attempt(s) confirmed in 0-30 sec using BVM ventilation between attempts Intubation Assessment: +ETCO2, EBBS and fog in ETT Ease of masking (I-easy to IV-difficult): I Ease of intubation (I-easy to IV-difficult): I Dentition Assessment: poor dentition and dentition unchanged Performed by: CROCODILE FARMER: Lobito Key APRN, CHRISTINE Events Anesthesia start: 02/10/2024 7:35 AM Intubation time: 02/10/2024 7:47 AM * Anesthesia Preprocedure Evaluation - Elizabeth Jensen MD - 02/10/2024 6:42 AM CDT Anesthesia Pre-Evaluation Summary Statement: This is a 73 y.o. year old patient scheduled for SPINAL FUSION POST LUMBAR/THORACIC W/[id number]-S2/iliac crest fusion with posterior lumbar interbody fusion (Unknown: Back Lower). Anesthesia Evaluation Internal or external H&P reviewed, patient examined and changes and/or additions made as needed Anesthesia Considerations delayed emergence, , no upper respiratory infection in last 2 weeks Negative for Anesthesia complications Additional ROS/Med Hx Findings: Pt is a 73yo F with lumbar scoliosis who presents for T11-S2 posterior fusion. Pulmonary - negative ROS and normal exam (-) asthma, sleep apnea, tobacco use, wheezes Neurological (+) neuropathy (RUE paresthesias.), chronic back pain (-) TIA, seizures ROS comment: Degenerative scoliosis with radiculopathy. Cervical radiculopathy. Psychiatric Cardiovascular - normal exam (+) >4 METs exercise tolerance (Limited by leg and back pain.), hypertension (-) cardiac problems Rhythm: regular Rate: normal Endo (-) diabetes mellitus, hypothyroidism Musculoskeletal HEENT GI - negative ROS (-) liver disease Hematologic/Onc /Renal/Route Deliverer - negative ROS (-) chronic renal disease Airway Mallampati: II TM distance: >3 FB Neck ROM: full Mouth Opening: good Dental (+) missing teeth Comments: One remaining molar - R lower Risk of dental damage discussed with patient/guardian who acknowledges understanding. OB Other Physical Exam Anesthesia Plan ASA 2 general (With arterial catheterization) (GETA, glidescope, PIV x2, art line. Discussed risks of prone positioning including postop vision loss and paresthesias, pt acknowledges understanding. Also discussed risk of postop cognitive dysfunction, all questions answered. ) intravenous induction Maintenance: Balanced Post-op Care: routine analgesia A knuckle bender was used. Anesthetic plan and risks discussed with patient (and family). The use of blood products has been discussed with the patient, and consented by patient. Plan discussed with CROCODILE FARMER. Vitals: 02/10/24 0557 BP: (!) 153/64 Pulse: 79 Resp: 20 Temp: 36.5 ??C (97.7 ??F) SpO2: 95% documented in this encounter Miscellaneous Notes * Anesthesia Handoff Note - Laurie Duckworth APRN, CRNA - 02/10/2024 6:54 PM CDT Anesthesia Post Handoff Patient: Alondra Aguilar Procedure(s) Performed: SPINAL FUSION POST LUMBAR/THORACIC W/[id number] T11- S2/iliac crest fusion with posterior lumbar interbody fusion and cell saver (Unknown: Back Lower) Patient was stable and nail beds/oral mucosa pink at time of handoff. Patient location: PACU Transportation: Patient was placed on high flow oxygen. Anesthesia Type: general Patient did not meet fast track criteria. Report to RN () The nurse's questions were answered. Last Vitals: Vitals: 02/10/24 0557 BP: (!) 153/64 Pulse: 79 Resp: 20 Temp: 36.5 ??C (97.7 ??F) SpO2: 95% * Anesthesia Extubation Note - Laurie Duckworth APRN, CRNA - 02/10/2024 6:53 PM CDT Anesthesia Extubation Note At the time of extubation the patient was breathing spontaneously, follows commands, orally suctioned, awake, vital signs stable and within normal limits, headlift for 5 seconds, strong hand grasps for 5 seconds and 4-4 on TOF with sustained tetany. Extubation details: Spontaneous respirations, High flow oxygen, Oral ETT removed and Pharyngeal reflexes present documented in this encounter Plan of Treatment Upcoming Encounters Date Type Department Care Team (Late st Contact Info) Description 03/28/2024 1:00 PM CDT [facility] Physical Medicine & Rehabilitation Clinic [address] [place] [address] Navi Verduzco PA-C [address] [place] [phone] 1, Isd-British [address] [place] [address] Scheduled Discharge Disposition: Discharged to home or self care (routine discharge) 03/28/2024 2:00 PM CDT Office Visit [facility] Word Processing Machine Operator [address] [place] [address] Marina Vasquez, RISK CONTROL ANALYST [address] [place] [phone] 1, Isd-British [address] [place] [address] Scheduled Discharge Disposition: Discharged to home or self care (routine discharge) 04/01/2024 11:30 AM CDT Appointment [facility] Physical Therapy [address] [place] [address] Chandler Zuniga, [address] [place] [address] Nikki Delong, PT [address] [place] [phone] 1, Isd-British [address] [place] [address] Scheduled Discharge Disposition: Discharged to home or self care (routine discharge) 04/05/2024 1:00 PM CDT Appointment [facility] Physical Therapy [address] [place] [address] Chandler Zuniga, DO [address] [place] [address] Nikki Delong, PT [address] [place] [address] 1, Isd-British [address] [place] [address] Scheduled Discharge Disposition: Discharged to home or self care (routine discharge) 04/11/2024 11:00 AM CDT Appointment [facility] Physical Therapy [address] [place] [address] Chandler Zuniga, DO [address] [place] [address] Nikki Delong, PT [address] [place] [phone] 1, Isd-British [address] [place] [phone] Scheduled Discharge Disposition: Discharged to home or self care (routine discharge) documented as of this encounter Procedures Procedure Name Priority Date/Time Associated Diagnosis Comments IV PLACEMENT Routine 02/10/2024 8:19 AM CDT INTUBATION Routine 02/10/2024 8:17 AM CDT documented in this encounter Results * IV Placement (02/10/2024 8:19 AM CDT) Narrative Anaya Willis SRNA - 02/10/2024 8:19 AM CDT Anaya Willis SRNA ? 02/10/2024 ??8:20 AM IV Placement Procedure Notes: (Type: Surgical Anesthesia) ? IV Site: left, hand Needle size: 20 G gauge IV attempts: 1 Unsuccessful Attempts Location(s): left hand Difficult IV access: No Performed by: Other: ?? [id number] ANAYA WILLIS [id number] ?? Elizabeth Jensen MD PROCEDURES * Intubation/Airway [...] poor dentition and dentition unchanged Performed by: CROCODILE FARMER: Lobito Key APRN, CROCODILE FARMER Events Anesthesia start: 02/10/2024 7:35 AM Intubation time: 02/10/2024 7:47 AM Elizabeth Jensen MD PROCEDURES documented in this encounter Visit Diagnoses Not on filedocumented in this encounter Administered Medications Inactive Administered Medications - up to 3 most recent administrations Medication Order MAR Action Action Date Dose Rate Site albumin (human) (HUMAN ALBUMIN GRIFOLS) 5 % injection Intravenous, PERIOP CONTINUOUS, Starting on Thu02/10/24 at 1000, Until Thu02/10/24 at 1854 New Bag 02/10/2024 3:51 PM CDT New Bag 02/10/2024 3:37 PM CDT New Bag 02/10/2024 1:20 PM CDT calcium chloride 10% injection Intravenous, INTRA-OP PRN ONCE MAY REPEAT, Starting on Thu02/10/24 at 1441, Until Thu02/10/24 at 1854 Given 02/10/2024 4:01 PM CDT 250 mg Given 02/10/2024 4:00 PM CDT 250 mg Given 02/10/2024 3:54 PM CDT 500 mg ceFAZolin (ANCEF) IVPB Intravenous, INTRA-OP PRN ONCE MAY REPEAT, Starting on Thu02/10/24 at 0813, Until Thu02/10/24 at 1854 Given 02/10/2024 4:01 PM CDT 2 g Given 02/10/2024 12:12 PM CDT 2 g Given 02/10/2024 8:13 AM CDT 2 g dexamethasone (DECADRON) 20 mg/ 5mL injection IV Push, INTRA-OP PRN ONCE MAY REPEAT, Starting on Thu02/10/24 at 0826, Until Thu02/10/24 at 1854 Given 02/10/2024 8:26 AM CDT 10 mg ephedrine (EMERPHED) 50 mg/ 10 mL injection Intravenous, INTRA-OP PRN ONCE MAY REPEAT, Starting on Thu02/10/24 at 0830, Until Thu02/10/24 at 1853 Given 02/10/2024 1:45 PM CDT 5 mg Given 02/10/2024 1:40 PM CDT 10 mg Given 02/10/2024 1:34 PM CDT 10 mg fentaNYL (SUBLIMAZE) 100 mcg/2mL injection Intravenous, INTRA-OP PRN ONCE MAY REPEAT, Starting on Thu02/10/24 at 0740, Until Thu02/10/24 at 185 Given 02/10/2024 5:02 PM CDT 25 mcg Given 02/10/2024 4:37 PM CDT 25 mcg Given 02/10/2024 7:40 AM CDT 50 mcg furosemide (LASIX) injection IV Push, INTRA-OP PRN ONCE MAY REPEAT, Starting on Thu02/10/24 at 1717, Until Thu02/10/24 at 185 Given 02/10/2024 5:17 PM CDT 10 mg HYDROmorphone PF (DILAUDID) 1 mg/mL injection IV Push, INTRA-OP PRN ONCE MAY REPEAT, Starting on Thu02/10/24 at 1730, Until Thu02/10/24 at 1853 Given 02/10/2024 6:14 PM CDT 0.25 mg Given 02/10/2024 5:30 PM CDT 0.5 mg lactated ringers infusion Intravenous, PERIOP CONTINUOUS, Starting on Thu02/10/24 at 0815, Until Thu02/10/24 at 1854 New Bag 02/10/2024 6:30 PM CDT New Bag 02/10/2024 1:28 PM CDT New Bag 02/10/2024 9:37 AM CDT lidocaine 2% injection Intravenous, INTRA-OP PRN ONCE MAY REPEAT, Starting on Thu02/10/24 at 0740, Until Thu02/10/24 at 1853 Given 02/10/2024 7:40 AM CDT 40 mg ondansetron (ZOFRAN) 4 mg/2 mL injection IV Push, INTRA-OP PRN ONCE MAY REPEAT, Starting on Thu02/10/24 at 1806, Until Thu02/10/24 at 1853 Given 02/10/2024 6:06 PM CDT 4 mg phenylephrine (BEATRIZ-SYNEPHRINE) 1 mg/10mL injection IV Push, INTRA-OP PRN ONCE MAY REPEAT, Starting on Thu02/10/24 at 0816, Until Thu02/10/24 at 1853 Given 02/10/2024 8:16 AM CDT 50 mcg phenylephrine (BEATRIZ-SYNEPHRINE) 10 mg/mL injection Intravenous, PERIOP CONTINUOUS, Starting on Thu02/10/24 at 0825, Until Thu02/10/24 at 1853 Infusing 02/10/2024 4:36 PM CDT 0.3 mcg/kg/min 0.088 mL/hr Infusing 02/10/2024 4:03 PM CDT 0.5 mcg/kg/min 0.146 mL/ hr Infusing 02/10/2024 3:30 PM CDT 0.7 mcg/kg/min 0.205 mL/ hr plasma-lyte A infusion Intravenous, PERIOP CONTINUOUS, Starting on Thu02/10/24 at 0815, Until Thu02/10/24 at 1853 New Bag 02/10/2024 3:09 PM CDT New Bag 02/10/2024 12:29 PM CDT New Bag 02/10/2024 8:03 AM CDT propofol (DIPRIVAN) 10 mg/mL injection emulsion Intravenous, INTRA-OP PRN ONCE MAY REPEAT, Starting on Thu02/10/24 at 0740, Until Thu02/10/24 at 1853 Given 02/10/2024 7:40 AM CDT 90 mg REMIfentanil (ULTIVA) 2,000 mcg syringe for infusion Intravenous, PERIOP CONTINUOUS, Starting on Thu02/10/24 at 0820, Until Thu02/10/24 at 1854 Restarted 02/10/2024 4:17 PM CDT 0.06 mcg/kg/min 3.514 mL/hr Restarted 02/10/2024 2:46 PM CDT 0.06 mcg/kg/min 3.514 mL /hr Infusing 02/10/2024 12:54 PM CDT 0.06 mcg/kg/min 3.514 m L/hr rocuronium bromide (ZEMURON) 10 mg/mL injection IV Push, INTRA-OP PRN ONCE FEBRUARY REPEAT, Starting on Thu02/10/24 at 0742, Until Thu02/10/24 at 1854 Given 02/10/2024 4:44 PM CDT 15 mg Given 02/10/2024 7:42 AM CDT 30 mg documented in this encounter Additional Health Concerns Assessment Noted Time PHQ-9 Depression Total Score: 5 11/02/19 9:12 AM FURNACE PROCESS SUPERVISOR PHQ-2 Depression Total Score: 1 11/02/19 9:12 AM FURNACE PROCESS SUPERVISOR documented as of this encounter Care Teams Java Sdet Relationship Specialty Start Date End Date Marcela Vera MD [address] [place] [address] [address] [place] [address] PCP - General Family Medicine 12/10/21 Nolberto Campos, ISHAAN [address] [place] [address] Physical Therapist Physical Therapy 12/11/21 documented as of this encounter
[2024-03-26 21:05] LABS: Chloride* 100 mmol/L (96-114); Potassium* 4.3 mmol/L (3.6-5.1); Sodium* 133 mmol/L (135-149)
[2024-03-26 21:08] LABS: Anion Gap 7 mEq/L (7-15); Blood Urea Nitrogen* 17 mg/dL (7-30); Carbon Dioxide* 26 mmol/L (20-32); Creatinine* 0.4 mg/dL (0.5-1.5); Est. Creatinine Clearance* 38.76; Estimated Glomerular Filt Rate 104 ml/min; INR 0.92 (0.91-1.10)
[2024-03-26 21:09] LABS: Calcium* 9.4 mg/dL (8.4-10.6); Glucose* 127 mg/dL (60-115); Partial Thromboplastin Time* 33 Seconds (23-33)
[2024-03-26 21:11] LABS: C Reactive Protein* 3.2 mg/dL (0.5-1.0)
[2024-03-26 21:43] LABS: D Dimer Quantitative* > 20.00 ug/ml (0.00-0.50)
[2024-03-27] VITALS (16 sets, daily range): BP systolic 109–147; BP diastolic 56–77; PULSE 79–104; RESP 16–20; TEMP 36.3–37.1; O2SAT 90–98
[2024-03-27] MEDS: HEPARIN 5,000 UNIT/0.5 ML INJ 3900 UNIT IVP (00:40)
[2024-03-27] MEDS: HEPARIN 25,000 UNIT/500 ML BAG 18 UNIT IV (00:40)
--- NOTE | 2024-03-27 00:46 | CRLHL7_ITS ---
For Patients: As a result of the Century Cures Act, medical imaging exams and procedure reports are released immediately into your electronic medical record. You may view this report before your referring provider. If you have questions, please contact your health care provider. INDICATION: Evaluate for extensiveness DVT and pelvis. Has large DVT in left leg. TECHNIQUE: CT abdomen and pelvis acquired with 53 cc of Isovue 370 IV contrast. COMPARISON: None. FINDINGS: Lower chest: Unremarkable. Liver: Unremarkable. Normal in size and attenuation. No suspicious masses. Gallbladder and bile ducts: Unremarkable. No stones or inflammation. No biliary dilatation. Pancreas: Unremarkable. No mass or inflammation. Spleen: Unremarkable. Normal in size. No masses. Adrenal glands: Unremarkable. No nodules. Kidneys: Simple cyst with punctate mural calcification within the right kidney. No hydronephrosis, stone, or suspicious mass. GI tract: Diverticulosis without pericolonic inflammation. No obstruction. No evidence for appendicitis. Vasculature: Evaluation is somewhat limited due to streak artifact from the patient`s spinal fusion hardware. There is enlargement and decreased enhancement of the left superficial, common femoral, external iliac and distal common iliac veins. There does not appear to be thrombus within the IVC. Ectatic and mildly atherosclerotic thoracic aorta with patent mesenteric arteries. Lymph nodes: No lymphadenopathy. Peritoneum/Abdominal Wall: Enlargement of the proximal left thigh with surrounding inflammatory stranding/edema. No free air or significant free fluid. Pelvis: Unremarkable. Bones: Extensive lower thoracic, lumbar, and upper sacral posterior fusion changes. No acute bony abnormality. IMPRESSION: 1. Extensive left-sided deep venous thrombosis extending from the left superficial femoral vein to the left common iliac vein. Associated enlargement and edema of the left proximal thigh. No thrombus visualized within the IVC. 2. No other acute findings within the abdomen and pelvis. Please note that all CT scans at this facility use dose modulation, iterative reconstruction, and/or weight-based dosing when appropriate to reduce radiation dose to as low as reasonably achievable. Dictated by Laron Mtz MD @ 03/27/2024 1:40:01 AM (Electronically Signed)
--- NOTE | 2024-03-27 02:29 | W.PM.TELEH&P ---
Telehealth- H&P: HPI History of Present Illness Date Seen: 03/27/24 Chief complaint: Left Leg Pain and Swelling Narrative: Alondra Gill is seen as an Interactive Telehealth visit. Alondra Gill is a 73 year old female who presented to the emergency room with increased left leg pain and swelling. Alondra primarily speaks [place] Islander and the conversation with her was had through a medical device assembler. Alondra has a significant past medical history of recent lumbar spine surgery which is believed to be a lumbar spinal fusion. This apparently happened approximately 6 weeks ago and she seemed to tolerate the procedure well. Unfortunately, over the last 3 to 4 days she has been experiencing some increased left leg swelling and pain. She denies any shortness of breath or cough. She denies any injury to the leg. With the increasing edema and worsening pain, she presented to the emergency room for evaluation. In the emergency room, she did have a lower extremity ultrasound ordered and unfortunately it did show an acute, occlusive deep venous thrombosis in the left common, deep and superficial femoral veins in both peroneal veins. A CT scan was also done for thorough evaluation which also showed extensive left-sided deep venous thrombosis extending from the left superficial femoral vein to the left common iliac vein. No thrombus was visualized within the IVC. A call was put in to the neurosurgeon to make sure that anticoagulation with heparin was not going to hinder her recent back surgery and it was suggested to not give lytics but heparin would be acceptable. With the extensive nature of her clot, vascular surgery was also curbside consulted and it was suggested that she should continue on IV heparin for 24 to 48 hours and then be transition to an oral anticoagulation medication. At the time I am seeing Alondra, she is currently quite comfortable and denies any pain in the leg with the medication given in the emergency room. She otherwise denies any other acute complaints or problems at the time I am seeing her. Review of Systems Narrative: Please see HPI?extensive and comprehensive review of systems is otherwise negative. [facility] Social History What is your current living situation?: I presently have a place to live Problems where you live: no known problems Problems where you live details: n/a In the past 12 months, utilities in danger of being shut off: unable to answer In past 12 months, lack of transportation kept you from medical appts, meetings, work, or getting things needed for daily living: no In the past 12 mos, have been you worried that your food would run out before you had money to buy more?: never true In the past 12 mos, the food you bought just didn't last and you didn't have money to buy more?: never true Smoking Status: Never smoker How often do you have a drink containing alcohol: never AUDIT-C Alcohol total score: 0 Non-prescribed substance use: denies use How often does anyone, including family, friends and others, physically hurt you: unable to answer How often does anyone, including family, friends and others, insult or talk down to you: unable to answer How often does anyone, including family, friends and others, threaten you with harm: unable to answer How often does anyone, including family, friends and others, scream or curse at you: unable to answer Meds Home Medications and Allergies Home Medications ?Medication ?Instructions ?Recorded ?Confirmed ?Type No Known Home Medications 03/26/24 03/26/24 History Allergies Allergy/AdvReac Type Severity Reaction Status Date / Time No Known Drug Allergies Allergy Verified 03/26/24 20:12 Exam Narrative Exam Narrative: Physical Exam GENERAL: vital signs reviewed, well developed and nourished, in no distress HEENT: pupils are equal round and reactive to light, extraocular movements are grossly within normal limits and oral mucosa is moist. NECK: Supple without lymphadenopathy or thyromegaly according to nursing staff examination observation HEART: Regular rate and rhythm without any rubs, murmurs or gallops. LUNGS: Clear to auscultation bilaterally with good air movement throughout ABDOMEN: Observation from nurse assisted exam, abdomen appears soft with minimal tenderness in the left lower quadrant. Positive bowel sounds noted. EXTREMITIES: There is obvious swelling and edema in the left lower extremity compared to the right. 2+ pitting edema is noted in the left with trace edema in the right lower extremity. Left lower extremity does show significantly increased girth as well. SKIN: Observed warm and dry with color normal NEURO: Alert, awake and oriented ?3. Answers all questions appropriately. No focal neuro deficits are noted. PSYCH: Affect normal Const Vital Signs, click to edit/add: Vital Signs - 24 hr 03/26/24 20:06 03/26/24 20:45 03/26/24 21:00 Temperature 99.6 F Pulse Rate 93 85 Pulse Rate [Pulse Oximeter] 94 Respiratory Rate 18 Respiratory Rate [Left Groin] Blood Pressure Blood Pressure [Right Upper Arm] 153/81 H Pulse Oximetry 96 95 97 Oxygen Delivery Method Room Air 03/26/24 21:15 03/26/24 21:31 03/26/24 21:45 Temperature Pulse Rate 89 87 83 Pulse Rate [Pulse Oximeter] Respiratory Rate 16 Respiratory Rate [Left Groin] Blood Pressure Blood Pressure [Right Upper Arm] Pulse Oximetry 95 97 97 Oxygen Delivery Method 03/26/24 22:00 03/26/24 22:00 03/26/24 22:15 Temperature Pulse Rate 86 88 Pulse Rate [Pulse Oximeter] Respiratory Rate Respiratory Rate [Left Groin] 16 Blood Pressure Blood Pressure [Right Upper Arm] Pulse Oximetry 96 94 Oxygen Delivery Method 03/26/24 22:30 03/26/24 22:31 03/26/24 22:32 Temperature Pulse Rate 79 85 84 Pulse Rate [Pulse Oximeter] Respiratory Rate 16 Respiratory Rate [Left Groin] Blood Pressure 144/73 H Blood Pressure [Right Upper Arm] Pulse Oximetry 97 96 97 Oxygen Delivery Method 03/26/24 22:45 03/26/24 23:00 03/26/24 23:15 Temperature Pulse Rate 87 90 90 Pulse Rate [Pulse Oximeter] Respiratory Rate Respiratory Rate [Left Groin] Blood Pressure Blood Pressure [Right Upper Arm] Pulse Oximetry 93 94 91 Oxygen Delivery Method 03/26/24 23:30 03/26/24 23:45 03/27/24 00:00 Temperature Pulse Rate 90 92 90 Pulse Rate [Pulse Oximeter] Respiratory Rate Respiratory Rate [Left Groin] Blood Pressure Blood Pressure [Right Upper Arm] Pulse Oximetry 94 92 91 Oxygen Delivery Method 03/27/24 00:15 03/27/24 00:30 03/27/24 00:45 Temperature Pulse Rate 90 101 H 104 H Pulse Rate [Pulse Oximeter] Respiratory Rate Respiratory Rate [Left Groin] Blood Pressure Blood Pressure [Right Upper Arm] Pulse Oximetry 90 95 95 Oxygen Delivery Method 03/27/24 00:57 03/27/24 01:00 03/27/24 01:01 Temperature Pulse Rate 83 86 84 Pulse Rate [Pulse Oximeter] Respiratory Rate 16 Respiratory Rate [Left Groin] Blood Pressure 123/59 L 139/56 L Blood Pressure [Right Upper Arm] Pulse Oximetry 95 95 94 Oxygen Delivery Method 03/27/24 01:25 03/27/24 01:35 Temperature Pulse Rate Pulse Rate [Pulse Oximeter] Respiratory Rate 20 Respiratory Rate [Left Groin] Blood Pressure Blood Pressure [Right Upper Arm] Pulse Oximetry 98 93 Oxygen Delivery Method Room Air Documenting provider has reviewed patient's vital signs: yes Hospitalist - H&P: Result Labs Labs: Short CBC 03/26/24 Range/Units 20:40 WBC 8.20 (4.50-11.00) K/uL Hgb 11.2 L (12.0-16.0) gm/dL Hct 35.9 (33.0-51.0) % Plt Count 242 (140-440) K/uL BMP 03/26/24 20:40 Sodium 133 L Potassium 4.3 Chloride 100 Carbon Dioxide 26 BUN 17 Creatinine 0.4 L Glucose 127 H Calcium 9.[address] Chest/Ab/Pelvis: Radiologist's impression: IMPRESSION: 1. Extensive left-sided deep venous thrombosis extending from the left superficial femoral vein to the left common iliac vein. Associated enlargement and edema of the left proximal thigh. No thrombus visualized within the IVC. 2. No other acute findings within the abdomen and pelvis. Assessment and Plan Assessment and plan (1) Postoperative acute deep vein thrombosis (DVT) of lower extremity: Status: Acute Plan Assessment: 1. Increased left lower extremity swelling and pain 2. Extensive left lower extremity DVT extending from the left superficial femoral vein to the left common iliac vein with associated enlargement and edema of the left proximal thigh contributing to #1 above 3. Recent back surgery with extensive lower thoracic, lumbar and upper sacral posterior fusion likely contributing to #2 above 4. Previous hypertension Plan: At this time to to the extensive nature of her deep venous thrombosis, it was decided that we would initiate IV heparin for stabilization of the clot. She currently does not have any signs or symptoms of pulmonary embolism, but with the extent of the clot, there is a definite danger of severe embolization. She has had recent extensive back surgery and the inactivity of the postoperative course likely is contributing to her extensive clot. She denies any recent injury of her leg and denies any family history of thrombosis. I will continue the IV heparin that was initiated in the emergency room and will also give some symptomatic oral pain medications for any further discomfort that she will likely have from her extensive left lower extremity DVT. Will watch her cardiovascular and respiratory status closely with the clotting situation. It does not sound like she has had much for chronic disease other than some previous hypertension and she states she does not take any chronic medications other than the pain medications that she was given for her back surgery. I will follow-up with chemistries and hematology labs for the a.m. I have discussed this plan with the patient and her daughter Kaela who accompanied her today through the use of translation services and they are agreeable to proceed. we will continue to follow closely from medical standpoint. I have discussed CODE STATUS with the patient and she does wish to be a full code. I will order this in her chart. Telehealth: Statement Statement Telehealth Visit: Today's History and Physical is provided via interactive telehealth by Paresh Sierra MD.? Patient is located at [facility].? Provider is located at [facility].? Nursing staff assisted with the patient's exam. The visit being done today meets criteria for a telehealth visit and the patient or patient?s parent/guardian is aware the visit is a telehealth visit. Camera Start Time: 02:02 Camera End Time: 02:24
[2024-03-27] MEDS: TRAMADOL HCL 50 MG TABLET PO (06:37)
[2024-03-27 06:49] LABS: Basophils Absolute Auto 0.03 K/uL (0.00-0.30); Basophils Percent Auto 0.4 % (0.0-3.0); Eosinophils Absolute Auto 0.13 K/uL (0.00-0.50); Eosinophils Percent Auto 1.8 % (0.0-7.0); Hematocrit 32.1 % (33.0-51.0); Hemoglobin* 10.4 gm/dL (12.0-16.0); Lymphocytes Absolute Auto 2.48 K/uL (0.90-2.90); Lymphocytes Percent Auto 35.3 % (20-44); Mean Corpuscular HGB Conc 32 gm/dL (32-36); Mean Corpuscular Hemoglobin 30 pg (26-34); Mean Corpuscular Volume 91 fL (80-100); Neutrophils Percent Auto 55.5 % (42.0-72.0); Platelet Count* 247 K/uL (140-440); RDW Coefficient of Variation % 14.7 % (11.5-15.5); Red Blood Count 3.53 m/uL (4.00-5.20); White Blood Count* 7.03 K/uL (4.50-11.00)
[2024-03-27 06:56] LABS: Chloride* 103 mmol/L (96-114); Potassium* 3.9 mmol/L (3.6-5.1); Sodium* 136 mmol/L (135-149)
[2024-03-27 06:58] LABS: Creatinine* 0.4 mg/dL (0.5-1.5); Est. Creatinine Clearance* 40.43; Estimated Glomerular Filt Rate 104 ml/min
[2024-03-27 06:59] LABS: Anion Gap 6 mEq/L (7-15); Blood Urea Nitrogen* 12 mg/dL (7-30); Calcium* 9.4 mg/dL (8.4-10.6); Carbon Dioxide* 27 mmol/L (20-32); Glucose* 103 mg/dL (60-115)
[2024-03-27 07:10] LABS: Slide Review Reflex No
[2024-03-27 08:09] LABS: Partial Thromboplastin Time* > 180 Seconds (23-33)
--- NOTE | 2024-03-27 08:15 | PC.NURSE ---
Patient arrived from ED at 0130. Patient pleasant, alert and oriented. Daughter Kaela?at bedside. Per daughter?s request she?translated for the nursing admission and the iPad clinical data assistant was used for the Telehealth MD portion. Patient reported not having much pain on arrival to Med-Surg. She was given PRN Tramadol at 0630 for pain in left leg rated 5/10. Transferred with stand by assist to bedside commode. Wears turtle brace on torso when out of bed.?
[2024-03-27] MEDS: SODIUM CHLORIDE 0.9 % (FLUSH) 10 ML SYRINGE 5 ML IVF ×2 (10:20→20:05)
--- NOTE | 2024-03-27 13:51 | P.IMPN_ITS ---
Progress Note: A&P Assessment and plan (1) Postoperative acute deep vein thrombosis (DVT) of lower extremity: Problem details: Due to her extensive an quite symptomatic clot she started on IV heparin. In the next day will likely transfer over to oral apixaban with possible discharge to home with doing well. Status: Acute Plan Continue in hospital for IV heparin pending transition to oral anticoagulation and home tomorrow Time Spent With Patient Total time spent: Total time spent today is 40 minutes discussing with patient, daughter and other providers ongoing management of acute postoperative DVT. Subjective Date Seen: 03/27/24 Interval history: Communication with online cigar head puncher with Lao-speaking patient and her daughter. 73-year-old female admitted to the hospital during the night with left leg pain. She had been having the pain for several days but the pain was acutely worse in the last 3 days. She has also noted marked swelling of the left lower extremity from the groin to the foot over the last 3-4 days. He is not aware of a fever. She has no chest pain or shortness of breath. She had lumbar spine surgery at [facility] on February 09. She reports that the surgery was uncomplicated except possibly significant amount of bleeding occurred. Postoperatively there has not been bleeding problems. She apparently was seen at [facility] last week for evaluation including an ultrasound looking for a DVT in her painful left leg. She has no previous history of blood clots, no family history of blood clots, no personal history of bleeding except during her back surgery, no history of cancer. She does not smoke. She is on no chronic medications. In the emergency department evaluation showed that she had extensive clot in the left common, deep and superficial femoral veins and both peroneal veins identified on ultrasound. Abdominal CT scan showed the clot extended into the left common iliac vein but not into the IVC. Exam Narrative: Exam Narrative: She is alert and appears in no distress. Respirations are clear to auscultation. Breathing is unlabored. Cardiovascular: S1, S2, regular rate and rhythm. Abdomen is soft without tenderness or mass. Inspection of the back shows a well-healed scar in her lumbar spine without bruising swelling redness or open wounds. No significant tenderness in this area. Lower extremities are examined. Left lower extremity has moderate edema from the groin to the foot. Right lower extremity is normal. Intact pedal pulses. Const: Vital Signs, click to edit/add: Vital Signs - 24 hr 03/26/24 20:06 03/26/24 20:45 03/26/24 21:00 Temperature 99.6 F Pulse Rate 93 85 Pulse Rate [Left P ulse Oximeter] Pulse Rate [Pulse Oximeter] 94 Respiratory Rate 18 Respiratory Rate [ Left Groin] Blood Pressure Blood Pressure [Ri ght Arm] Blood Pressure [Ri ght Upper Arm] 153/81 H Pulse Oximetry 96 95 97 [facility] 03/26/24 21:15 03/26/24 21:31 03/26/24 21:45 Temperature Pulse Rate 89 87 83 Pulse Rate [Left P ulse Oximeter] Pulse Rate [Pulse Oximeter] Respiratory Rate 16 Respiratory Rate [ Left Groin] Blood Pressure Blood Pressure [Ri ght Arm] Blood Pressure [Ri ght Upper Arm] Pulse Oximetry 95 97 97 Oxygen Delivery Me thod 03/26/24 22:00 03/26/24 22:00 03/26/24 22:15 Temperature Pulse Rate 86 88 Pulse Rate [Left P ulse Oximeter] Pulse Rate [Pulse Oximeter] Respiratory Rate Respiratory Rate [ Left Groin] 16 Blood Pressure Blood Pressure [Ri ght Arm] Blood Pressure [Ri ght Upper Arm] Pulse Oximetry 96 94 Oxygen Delivery Me od 03/26/24 22:30 03/26/24 22:31 03/26/24 22:32 Temperature Pulse Rate 79 85 84 Pulse Rate [Left P ulse Oximeter] Pulse Rate [Pulse Oximeter] Respiratory Rate 16 Respiratory Rate [ Left Groin] Blood Pressure 144/73 H Blood Pressure [Ri ght Arm] Blood Pressure [Ri ght Upper Arm] Pulse Oximetry 97 96 97 Oxygen Delivery Ks thod 03/26/24 22:45 03/26/24 23:00 03/26/24 23:15 Temperature Pulse Rate 87 90 90 Pulse Rate [Left P ulse Oximeter] Pulse Rate [Pulse Oximeter] Respiratory Rate Respiratory Rate [ Left Groin] Blood Pressure Blood Pressure [Ri ght Arm] Blood Pressure [Ri ght Upper Arm] Pulse Oximetry 93 94 91 Oxygen Delivery Me thod 03/26/24 23:30 03/26/24 23:45 03/27/24 00:00 Temperature Pulse Rate 90 92 90 Pulse Rate [Left P ulse Oximeter] Pulse Rate [Pulse Oximeter] Respiratory Rate Respiratory Rate [ Left Groin] Blood Pressure Blood Pressure [Ri ght Arm] Blood Pressure [Ri ght Upper Arm] Pulse Oximetry 94 92 91 Oxygen Delivery Ks thod 03/27/24 00:15 03/27/24 00:30 03/27/24 00:45 Temperature Pulse Rate 90 101 H 104 H Pulse Rate [Left P ulse Oximeter] Pulse Rate [Pulse Oximeter] Respiratory Rate Respiratory Rate [ Left Groin] Blood Pressure Blood Pressure [Ri ght Arm] Blood Pressure [Ri ght Upper Arm] Pulse Oximetry 90 95 95 [facility] 03/27/24 00:57 03/27/24 01:00 03/27/24 01:01 Temperature Pulse Rate 83 86 84 Pulse Rate [Left P ulse Oximeter] Pulse Rate [Pulse Oximeter] Respiratory Rate 16 Respiratory Rate [ Left Groin] Blood Pressure 123/59 L 139/56 L Blood Pressure [Ri ght Arm] Blood Pressure [Ri ght Upper Arm] Pulse Oximetry 95 95 94 [facility] 03/27/24 01:25 03/27/24 01:35 03/27/24 07:00 Temperature 97.3 F L Pulse Rate Pulse Rate [Left P ulse Oximeter] 96 Pulse Rate [Pulse Oximeter] Respiratory Rate 20 18 Respiratory Rate [ Left Groin] Blood Pressure Blood Pressure [Ri ght Arm] 113/67 Blood Pressure [Ri ght Upper Arm] Pulse Oximetry 98 93 94 [facility] Room Air 03/27/24 07:00 03/27/24 11:00 Temperature 98.5 F Pulse Rate Pulse Rate [Left P ulse Oximeter] 89 Pulse Rate [Pulse Oximeter] Respiratory Rate 18 18 Respiratory Rate [ Left Groin] Blood Pressure Blood Pressure [Ri ght Arm] 120/65 Blood Pressure [Ri ght Upper Arm] Pulse Oximetry 92 [facility] Documenting provider has reviewed patient's vital signs: yes Labs Labs: Laboratory Results - last 24 hr 03/26/24 03/27/24 20:40 06:04 WBC 8.20 7.03 RBC 3.90 L 3.53 L Hgb 11.2 L 10.4 L Hct 35.9 32.1 L MCV 92 91 MCH 29 30 MCHC 31 L 32 RDW Coeff of Shalini 14.7 14.7 Plt Count 242 247 Neut % (Auto) 67.9 55.5 Lymph % (Auto) 24.1 35.3 Sequoyah % (Auto) 6.6 7.0 Eos % (Auto) 1.2 1.8 Baso % (Auto) 0.2 0.4 Neut # (Auto) 5.56 3.90 Lymph # (Auto) 1.98 2.48 Sequoyah # (Auto) 0.50 0.50 Eos # (Auto) 0.10 0.13 Baso # (Auto) 0.02 0.03 Abs Immat Gran (auto) 0.00 0.00 Imm/Tot Granulo (auto) 0.0 0.0 INR 0.92 APTT 33 > 180 H* D-Dimer Quant (PE/DVT) > 20.00 H Sodium 133 L 136 Potassium 4.3 3.9 Chloride 100 103 Carbon Dioxide 26 27 Anion Gap 7 6 L BUN 17 12 Creatinine 0.4 L 0.4 L Estimated Creat Clear 38.76 40.43 Estimated GFR 104 104 Glucose 127 H 103 Calcium 9.4 9.4 C-Reactive Protein 3.2 H
[2024-03-27] MEDS: ACETAMINOPHEN 325 MG TABLET PO ×2 (14:37→20:02)
--- NOTE | 2024-03-27 14:46 | PC.NURSE ---
End of Shift: Patient pleasant and cooperative, A&O. VSS, afebrile. Patient reports pain on her left leg this shift, managed with PRN medication, see MAR. SBA - walker to bathroom. Tolerating regular diet. [place] ipad lens grinding machine operator used this shift.
[2024-03-27 15:48] LABS: Partial Thromboplastin Time* 109 Seconds (23-33)
--- NOTE | 2024-03-27 18:52 | PC.NURSE ---
Shift Summary: Patient pleasant and cooperative. Up with SBA and walker. Vitals stable, denies pain unless up walking. Left leg with non pitting edema. Used ipad sterile preparation technician throughout shift.
[2024-03-27 23:14] LABS: Partial Thromboplastin Time* 117 Seconds (23-33)
[2024-03-28 00:18] LABS: Partial Thromboplastin Time* 108 Seconds (23-33)
[2024-03-28 02:45] VITALS: BP 140/72; PULSE 85; RESP 16; TEMP 36.7; O2SAT 96
--- NOTE | 2024-03-28 04:26 | PC.NURSE ---
Pt rested well this night. States pain in left leg only when moving. Heparin running according to Protocol. Pleasant, oriented, and cooperative. Up A1 with walker and back brace.
[2024-03-28 06:43] LABS: Partial Thromboplastin Time* 70 Seconds (23-33)
[2024-03-28] MEDS: ACETAMINOPHEN 325 MG TABLET PO ×2 (08:00→14:30)
[2024-03-28] MEDS: TRAMADOL HCL 50 MG TABLET PO ×2 (08:01→14:31)
[2024-03-28 08:04] VITALS: BP 122/71; PULSE 92; RESP 20; TEMP 36.7; O2SAT 97
[2024-03-28 08:32] VITALS: PULSE 92; RESP 20
[2024-03-28] MEDS: SODIUM CHLORIDE 0.9 % (FLUSH) 10 ML SYRINGE 5 ML IVF (09:40)
[2024-03-28] MEDS: APIXABAN 5 MG TABLET PO (09:41)
[2024-03-28] MEDS: DOCUSATE SODIUM 100 MG CAPSULE PO (09:43)
[2024-03-28] MEDS: polyethylene glycoL 3350 17 GM PACK PO (09:43)
[2024-03-28 10:07] LABS: Hemoglobin* 10.1 gm/dL (12.0-16.0)
[2024-03-28 11:00] VITALS: BP 114/61; PULSE 81; RESP 16; TEMP 37; O2SAT 95
--- NOTE | 2024-03-28 11:14 | PM.DS1 ---
DS: Providers Provider Date Seen: 03/28/24 Date of admission: 03/27/24 07:31 Primary care physician: Not a Local Provider Admitting Clinician: Paresh Sierra MD Consults: PT, OT Attending Physician on discharge: Casandra Packer MD Date of Discharge: 03/28/24 DS: Diagnosis Discharge Diagnosis (1) Postoperative acute deep vein thrombosis (DVT) of lower extremity: Status: Acute Problem details: - LEFT superficial femoral vein to L common iliac vein. No thrombus in IVC. DS: Summary Hospital Course Hospital Course: Alondra is a 73 yo female patient who presented to the Emergency Room on 03/27/24 with LEFT leg pain and swelling. She underwent a lumbar spinal [place] approximately 6 weeks ago [place] [facility] was not anticoagulated after surgery (PCP noted that in hospital chart, she was to be discharged on daily Lovenox, but patient never took this upon discharge home). CT of Abdomen and Pelvix in ER revealed an extensive L sided DVT, extending from L superficial femoral vein to L common iliac vein. No thrombus in IVC. CT PE exam deferred given no hypoxia, no tachycardia, no CP. Vascular surgery consulted by ED, recommended heparin gtt upon admission, no need for thrombolytics. Heparin gtt initiated and patient tolerated well. She remained hemodynamically stable and ready for discharge home on 03/28/24. Initially, apixaban was prescribed for DVT treatment; received a call from pharmacy and this was going to be cost prohibitive for patient. We then transitioned to Warfarin with Lovenox bridging upon discharge, in addition to close PCP follow-up. Reviewed plan of care with PCP (Dr. Marcela Vera at [facility] [place] who will see patient in followup. Status at Discharge Functional status at discharge: uses cane/walker Overall status at discharge: patient is progressing back to baseline Time Spent with Patient Time attestation: Total time spent providing and/or coordinating discharge services: Time spent: Greater than 30 minutes Specific discharge activities: Patient Education, multiple discussions with pharmacist, update to PCP, med rec Exam Narrative: Exam Narrative: GEN: Alert and oriented, appears younger than stated age. Sitting comfortably in bedside chair and wearing back brace HEENT: Normal external ears, EOMIs bilaterally CV: RRR, No concerning murmurs R: LCTA bilaterally without concerning wheezing, air movement adequate throughout Ext: Wearing bilateral lower extremity [place] hose Skin: No concerning skin lesions or rashes on exposed skin Neuro: Nonfocal Psych: Appropriate Const: Vital Signs, click to edit/add: Vital Signs - 24 hr 03/27/24 15:22 03/27/24 19:19 03/27/24 20:02 Temperature 98.6 F 98 F 98 F Pulse Rate [Left P ulse Oximeter] 86 79 Respiratory Rate 16 16 Blood Pressure [Ri ght Arm] 109/60 142/77 H Pulse Oximetry 94 96 Oxygen Delivery Me thod Room Air Room Air 03/27/24 22:21 03/27/24 22:26 03/28/24 02:45 Temperature 98.8 F 98.1 F Pulse Rate [Left P ulse Oximeter] 88 88 85 Respiratory Rate 16 16 16 Blood Pressure [Ri ght Arm] 147/72 H 140/72 H Pulse Oximetry 96 96 Oxygen Delivery Me thod Room Air Room Air 03/28/24 08:04 03/28/24 08:32 Temperature 98.1 F Pulse Rate [Left P ulse Oximeter] 92 92 Respiratory Rate 20 20 Blood Pressure [Ri ght Arm] 122/71 Pulse Oximetry 97 Oxygen Delivery Me thod Room Air DS: Data Data Completed and Pending Labs on day of discharge: Labs from last 24 hours 03/28/24 03/28/24 03/27/24 09:59 06:15 23:40 Hgb 10.1 L APTT 70 H 108 H* Lab Acknowledgement Pending 03/27/24 03/27/24 22:36 15:17 Hgb APTT 117 H* 109 H* Lab Acknowledgement Discharge Plan Discharge Disposition: Home, Self-Care Date of Admission: 03/27/24 07:31 Attending Provider on Discharge: Casandra Packer Primary Care Provider: Provider,Not a Local Condition: Stable Anticipated Discharge Date/Time: 03/28/24 11:05 Discharge Medications: New docusate sodium 100 mg Capsule 100 mg PO BID PRN (Reason: Constipation) Qty: 60 0RF oxycodone 5 mg tablet 5 mg PO Q6H PRN (Reason: pain) Qty: 20 0RF enoxaparin [Lovenox] 60 mg/0.6 mL syringe 60 mg subcut Q12H Qty: 6 0RF warfarin 5 mg tablet 5 mg PO DAILY Qty: 30 0RF Continued oxycodone 5 mg tablet 5 mg PO Q8H PRN (Reason: pain) Cerovite Senior 0.4 mg-300 mcg- 250 mcg tablet 1 tab PO DAILY Discharge Orders: Discharge Order (Routine); Ordered 03/28/24 Ordered By: Casandra Packer Additional Instructions: You have a large blood clot in your LEFT leg. It is important for you to take the blood thinning mediation (WARFARIN) daily in the morning PLUS the injection twice per day to treat this and prevent it from getting larger. You should also wear your tights throughout the day and night (okay to have them off for 2-4 hours per day). Medications that are waiting at the Pharmacy: 1. Warfarin (also called Coumadin) - you take this every day for your blood clot. You will need to have your blood checked at Dr. Vera's office to follow this. 2. Lovenox (also called Enoxaparin) - this is a shot you give yourself TWICE/DAY while we wait for the Coumadin to work. I think you will only need this for a few days. 3. Oxycodone (you can use this every 6-8 hours for severe pain). Good idea to take ACETAMINOPHEN (Tylenol) as well for pain - you can take 2 tablets of this every 8 hours. YOU CANNOT TAKE IBUPROFEN OR NAPROXEN FOR PAIN. 4. Docusate - this is a medication that keeps you from getting constipated. Dr. Vera knows that you were in the hospital. Her office will be calling you to make an appointment. Tiene un co?gulo de paloma walt en la omega M[place]. Es importante que tome la mediaci?n anticoagulante (WARFARINA) diariamente por la ma?Dean?S la inyecci?n dos veces al d?a para tratar esto y evitar que se agrande. Tambi?n debe usar trevor medias celia el d?a y la noche (est? matias quit?rselas celia 2 a 4 horas por d?a). Medicamentos que est?n esperando en la farmacia: 1. Warfarina (tambi?n llamada Coumadin): se sean todos los d?as para el co?gulo de paloma. Deber? hacerse un an?lisis de paloma en el consultorio del Dr. eVra para seguir esto. 2. Lovenox (tambi?n llamado Enoxaparin): esta es margie inyecci?n que se administra DOS VECES AL D?A mientras esperamos que el Coumadin funcione. Creo que solo necesitar?s esto celia unos d?as. 3. Oxicodona (puede usarla cada 6-8 horas para el dolor intenso). Es margie buena idea shayla ACETAMINOF?N (Tylenol) tambi?n para el dolor: puede shayla 2 tabletas de esto cada 8 horas. NO PUEDE SHAYLA IBUPROFENO O NAPROXENO PARA EL DOLOR. 4. Docusato: monty es un medicamento que steve que te estre?as. El Dr. Vera sabe que usted estuvo en el hospital. Willis oficina lo llamar? para hacer margie gabrielle. Activity Level: Activity as Tolerated Discharge Diet: Regular Follow Up Appointments: Provider,Not a Local [Primary Care Provider] - (PCP is Dr. Vera at [facility] Their office should be calling patient to make an appointment.) [facility]: [facility]
[2024-03-28 13:42] LABS: Partial Thromboplastin Time* 39 Seconds (23-33)
--- NOTE | 2024-03-28 14:44 | PC.NURSE ---
Discharge: Patient pleasant and cooperative. Patient vitally stable, lungs clear, BS WNL, IV removed, catheter intact. Patient SBA with walker. Patient rates left leg pain 2-3/10, tylenol and tramadol given x2. Left leg is swollen, but not pitting. Patient tolerating regular diet, urinating well, no BM, stool softener given. Patient signed belongings sheet and discharge form. Patient and patient's daughter were given lovenox education and they both practiced with needle and fake tissue. Patient had no further questions after discharge education. Patient left the floor by wheelchair to home at 1440.
== END 2024-03-28 14:40 | disposition home or self-care (01) | DRG 197 ==
LOC: ED 03-27 00:50 → MEDSURG 03-27 01:24
PROVIDERS: Family Medicine; Admitting Provider Internal Medicine; Emergency Provider Family Medicine; Visit Provider Internal Medicine
DX: I82.412 Acute embolism and thrombosis of left femoral vein (principal); T81.72XA Complication of vein following a procedure, not elsewhere classified, initial encounter; I87.1 Compression of vein
CPT/HCPCS: 36415; 74177; 80048; 85018; 85025; 85379; 85610; 85730; 86140; 93971; 94761; 97116; 97162; 97165; 97535; 99284; 99285; A9270; J1644; J2270; J7030; Q9967